=== PATIENT | female | born 1975 | race Caucasian/White ===

== ENCOUNTER 2019-03-19 15:48 | Inpatient (IN) | payer BC ==
--- OUTSIDE RECORDS SUMMARY | 2019-03-19 15:51 | XMS REPORT ---
:1975 [facility] Address [address] [place] [address] Dr. Painter [address] [place] [id number] Care Team Providers Name Role Phone Unavailable Unavailable Unavailable Problems This patient has no known problems. Allergies, Adverse Reactions, Alerts This patient has no known allergies or adverse reactions. Medications This patient has no known medications.
--- OUTSIDE RECORDS SUMMARY | 2019-03-19 15:52 | XMS REPORT ---
:1975 Author Organization eClinicalWorks Care Team Providers Name Role Phone Jmamie Avery Provider Role Unavailable Allergies No Known Allergies Problems Problem Type Condition Code Onset Dates Condition Status Problem Abnormal urine odor R82.90 Active Problem Abnormal urinalysis R82.90 Active Problem Hyperlipidemia, unspecified E78.5 Active hyperlipidemia type Problem Morbid obesity E66.01 Active Problem Migraine G43.909 Active Problem Neck pain on right side M54.2 Active Problem Depressive disorder F32.9 Active Problem Vitamin D deficiency E55.9 Active Problem Morbid (severe) obesity due to E66.01 Active excess calories Problem 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 Problem Right arm pain M79.601 Active Problem 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 31579322227 500-125 MG Jun 05, Jun 19, Active as directed Orally every 12 2017 2018 hrs Results No Known Results Summary Purpose eClinicalWorks Submission
--- OUTSIDE RECORDS SUMMARY | 2019-03-19 15:52 | XMS REPORT ---
:1975 Author Organization eClinicalWorks Care Team Providers Name Role Phone Jammie Avery Provider Role Unavailable Allergies No Known [...] pain of right shoulder M25.511 Active Medications No Known Medications Results No Known Results Summary Purpose eClinicalWorks Submission
--- OUTSIDE RECORDS SUMMARY | 2019-03-19 15:52 | XMS REPORT ---
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 Assessment Hypertension, unspecified type I10 Active Assessment Neck pain on right side M54.2 Active Assessment Acute pain of right shoulder M25.511 Active Assessment Right arm pain M79.601 Active Problem Body mass index (BMI) of 40.0-44.9 Z68.41 Active in adult Assessment Abnormal urinalysis R82.90 Active Problem Acute pain of right shoulder M25.511 Active Assessment Abnormal urine odor R82.90 Active Problem Abnormal urine odor R82.90 Active Problem Abnormal urinalysis R82.90 Active Problem Hyperlipidemia, unspecified E78.5 Active hyperlipidemia type Problem Morbid obesity E66.01 Active Problem Neck pain on right side M54.2 Active Problem Migraine G43.909 Active Problem Depressive disorder F32.9 Active Problem Vitamin D deficiency E55.9 Active Problem Morbid (severe) obesity due to E66.01 Active excess calories Problem 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 Problem Right arm pain M79.601 Active Problem 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 Assessment 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 Problem Hypertension I10 Active Assessment Vitamin D deficiency E55.9 Active Problem Hyperlipidemia E78.5 Active Problem Type 2 diabetes E11.9 Active Assessment 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 Problem Mixed hyperlipidemia E78.2 Active Problem Hypertension, unspecified type I10 Active Problem Chronic kidney disease, unspecified N18.9 Active CKD stage Problem 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 Problem 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 Medications Medication Code Code Instructions Start End Status Dosage System Date Date Calcium + D3 [facility] 72335274727 600-200 Active 1 tablet with MG-UNIT Orally a meal Once a day Lisinopril ND 39483664165 20 MG Orally Active 1 tablet Once a day Ferrous Sulfate [facility] 69015525767 325 (65 Fe) MG Active 1 tablet Orally Once daily Bystolic ND 10457511539 5 MG Orally Active 1 tablet Once a day Amlodipine ND 14691179181 10 MG Orally Active 1 tablet Besylate Once a day Promethazine HCl ND 27133990905 25 MG Orally Active 1 tablet as every 12 hrs needed Ciprofloxacin HCl ND 24790044368 250 MG Orally Active 1 tablet every 12 hrs NovoLog Flexpen [facility] 97983508381 100 UNIT/ML Active as directed Subcutaneous 35 units three times daily Vitamins [facility] 99379034525 28-0.8 MG Active 1 tablet in Orally Once evening daily Pravastatin Sodium ND 48782815342 20 MG Orally Active 1 tablet Once a day Contrave [facility] 25268198108 8-90 MG Orally Active 2 tablets Twice a day Fluconazole ND 89514740334 150 MG Orally Active 1 tablet x3 days Amitiza [facility] 84926134677 24 MCG Orally Active 1 capsule Twice a day with food Victoza [facility] 50521186536 18 MG/3ML Active not defined Subcutaneous Blood Glucose Test ND 0 as directed Jun 02, Active as directed Strip Test BS three 2017 (DISPENSE times daily BLOOD GLUCOSE TEST STRIPS FOR MOR CONTOUR BS MONITOR ) Lancets [facility] 49650558942 - as directed Jun 02, Active as directed Test BS three 2017 (dispense times daily lancets for mor contour bs monitor) BuPROPion HCl ER [facility] 18129972800 150 MG Orally Active 1 tablet in (Smoking Det) Once a day the morning Fish Oil ND 82203494425 1000 MG Orally Active 1 capsule Twice a day Aspirin EC ND 83541035220 81 MG Orally Active 1 tablet Once daily (otc) Levemir FlexTouch [facility] 43632689962 100 UNIT/ML Active as directed Subcutaneous 60 units twice daily Fenofibrate ND 94454363156 120 MG Orally Active 1 tablet with Once a day food Vitamin D3 [facility] 95686732978 50,000 PO once Active one tab a week Atorvastatin [facility] 25161537402 40 MG Orally Active 1 tablet Calcium Once a day Metformin HCl [facility] 53272338584 500 MG Orally Active 1 tablet with Twice a day meals Cyclobenzaprine [facility] 19011535882 10 MG Orally Jun 02Jun Active 1 tablet as HCl Twice daily 2017, needed for 2017 muscle cramps/pain [place] 3 [facility] 88335218671 1000 MG Orally Active 1 capsule Once a day Ketoconazole [facility] 32791541039 2 % Externally Active 1 application Once a day to affected area Metoprolol [facility] 02307785453 25 MG Orally Active 1 tablet Succinate ER Once a day Dicyclomine HCl [facility] 48282947808 20 MG Orally Active 1 tablet Four times a day as needed Results No Known Results Summary Purpose eClinicalWorks Submission
--- OUTSIDE RECORDS SUMMARY | 2019-03-19 15:53 | XMS REPORT ---
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 Problem Acute pain of right shoulder M25.511 Active Medications Medication Code Code Instructions Start End Status Dosage System Date Date BuPROPion HCl ER NDC 26134522801 150 MG Orally Active 1 tablet in (Smoking Det) Once a day the morning Fish Oil NDC 01677229864 1000 MG Orally Active 1 capsule Twice a day Promethazine HCl NDC 69525584351 25 MG Orally Active 1 tablet as every 12 hrs needed Amlodipine NDC 72195976530 10 MG Orally Active 1 tablet Besylate Once a day Lancets ND 15648332431 - as directed Jun 02, Active as directed Test BS three 2017 (dispense times daily lancets for karley contour bs monitor) Pravastatin [facility] 74982977278 20 MG Orally Active 1 tablet Sodium Once a day Metformin HCl ND 69585866203 500 MG Orally Active 1 tablet with Twice a day meals Atorvastatin [facility] 97819880014 40 MG Orally Active 1 tablet Calcium Once a day Dicyclomine HCl ND 87043304209 20 MG Orally Active 1 tablet Four times a day as needed Fenofibrate ND 85712284856 120 MG Orally Active 1 tablet with Once a day food NovoLog Flexpen [facility] 94121255721 100 UNIT/ML Active as directed Subcutaneous 35 units three times daily Blood Glucose ND 0 as directed Jun 02, Active as directed Test Strip Test BS three 2017 (DISPENSE times daily BLOOD GLUCOSE TEST STRIPS FOR KARLEY CONTOUR BS MONITOR ) Ketoconazole [facility] 77385430678 2 % Externally Active 1 application Once a day to affected area Metoprolol [facility] 89918533974 25 MG Orally Active 1 tablet Succinate ER Once a day Amitiza [facility] 84221298044 24 MCG Orally Active 1 capsule Twice a day with food Ciprofloxacin [facility] 48489637852 250 MG Orally Active 1 tablet HCl every 12 hrs Vitamin D3 [facility] 68572045146 50,000 PO once Active one tab a week Lisinopril [facility] 82507946809 20 MG Orally Active 1 tablet Once a day Victoza [facility] 03404748713 18 MG/3ML Active not defined Subcutaneous [place] 3 [facility] 35851168043 1000 MG Orally Active 1 capsule Once a day Fluconazole [facility] 72240257504 150 MG Orally Active 1 tablet x3 days Ferrous Sulfate [facility] 63887874884 325 (65 Fe) MG Active 1 tablet Orally Once daily Bystolic [facility] 82837712624 5 MG Orally Active 1 tablet Once a day Contrave [facility] 45590209314 8-90 MG Orally Active 2 tablets Twice a day Levemir ND 66180146918 100 UNIT/ML Active as directed FlexTouch Subcutaneous 60 units twice daily ND 28105714670 28-0.8 MG Active 1 tablet in Vitamins Orally Once evening daily Aspirin EC [facility] 64379196697 81 MG Orally Active 1 tablet Once daily (otc) Calcium + D3 [facility] 58343163771 600-200 MG-UNIT Active 1 tablet with Orally Once a a meal day Results Name Result Date Reference Range Unit Abnormality Flag FLU TEST ----A Negative [id number] ----B Negative [id number] STREP A RAPID ----Result Negative [id number] Summary Purpose eClinicalWorks Submission
--- OUTSIDE RECORDS SUMMARY | 2019-03-19 15:53 | XMS REPORT ---
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 70678281627 28-0.8 MG Active 1 tablet in Vitamins Orally Once evening daily Ferrous Sulfate [facility] 51122953370 325 (65 Fe) MG Active 1 tablet Orally Once daily Ciprofloxacin [facility] 12459238971 250 MG Orally Active 1 tablet HCl every 12 hrs BuPROPion HCl ER [facility] 62051938955 150 MG Orally Active 1 tablet in (Smoking Det) Once a day the morning Lisinopril [facility] 86769551100 20 MG Orally Active 1 tablet Once a day Metformin HCl ND 45657113675 500 MG Orally Active 1 tablet with Twice a day meals Fluconazole ND 42066098750 150 MG Orally Active 1 tablet x3 days Bystolic ND 62738431560 10 MG Orally Active 1 tablet Once a day Amitiza ND 74588970687 24 MCG Orally Active 1 capsule Twice a day with food Calcium + D3 [facility] 32459712159 600-200 MG-UNIT Active 1 tablet with Orally Once a a meal day Diflucan ND 69730998944 150 MG Orally 1 Oct 06Sep Active as directed tablet now; 2017, then repeat 2018 after completing abx. Augmentin [facility] 06976051178 875-125 MG Oct 06Oct Active 1 tablet Orally every 12 2017 07, hrs 2019 Pravastatin ND 18990297169 20 MG Orally Active 1 tablet Sodium Once a day Vitamin D3 ND 65967570739 50,000 PO once Active one tab a week [place] 3 ND 48921039564 1000 MG Orally Active 1 capsule Once a day Levemir ND 27262025587 100 UNIT/ML Active as directed FlexTouch Subcutaneous 60 units twice daily NovoLog Flexpen ND 54870751659 100 UNIT/ML Active as directed Subcutaneous 35 units three times daily Dicyclomine HCl ND 58826952371 20 MG Orally Active 1 tablet Four times a day as needed Amlodipine ND 35252177486 10 MG Orally Active 1 tablet Besylate Once a day Contrave ND 16595377257 8-90 MG Orally Active 2 tablets Twice a day Atorvastatin ND 36830856956 40 MG Orally Active 1 tablet Calcium Once a day Fenofibrate ND 79225655717 120 MG Orally Active 1 tablet with Once a day food Fish Oil ND 08572823093 1000 MG Orally Active 1 capsule Twice a day NovoFine [facility] 49354520830 32G X 6 MM Active USE FIVE TIMES A DAY Victoza ND 82027009334 18 MG/3ML Active not defined Subcutaneous Blood Glucose ND 0 as directed Jun 02, Active as directed Test Strip Test BS three 2017 (DISPENSE times daily BLOOD GLUCOSE TEST STRIPS FOR KARLEY CONTOUR BS MONITOR ) Promethazine HCl [facility] 83634624544 25 MG Orally Active 1 tablet as every 12 hrs needed Ketoconazole [facility] 45881531963 2 % Externally Active 1 application Once a day to affected area Aspirin EC [facility] 60535501639 81 MG Orally Active 1 tablet Once daily (otc) Lancets [facility] 86482018600 - as directed Jun 02, Active as directed Test BS three 2017 (dispense times daily lancets for karley contour bs monitor) Metoprolol [facility] 30607415181 25 MG Orally Active 1 tablet Succinate ER Once a day Results Name Result Date Reference Range Unit Abnormality Flag FLU TEST ----A Negative [id number] ----B Negative [id number] STREP A RAPID ----Result Poaitive [id number] Summary Purpose eClinicalWorks Submission
--- OUTSIDE RECORDS SUMMARY | 2019-03-19 15:53 | XMS REPORT ---
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 Assessment Abdominal pain, unspecified R10.9 Active abdominal location Assessment Screening mammogram, encounter for Z12.31 Active Assessment Fatigue, unspecified type R53.83 Active Assessment Strep throat J02.0 Active Assessment Acute pharyngitis, unspecified J02.9 Active etiology Problem 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 Problem Hypertension I10 Active Problem Abnormal urine odor R82.90 Active Problem Hyperlipidemia, unspecified E78.5 Active hyperlipidemia type Problem Hyperlipidemia E78.5 Active Problem Hypertension, unspecified type I10 Active Problem Body mass index (BMI) of 40.0-44.9 Z68.41 Active in adult Problem Chronic kidney disease, unspecified N18.9 Active CKD stage Problem Fatigue, unspecified type R53.83 Active Problem Depression, unspecified depression F32.9 Active type Problem Migraine G43.909 Active Problem Depressive disorder F32.9 Active Assessment 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 Problem Body mass index (BMI) 45.0-49.9, Z68.42 Active adult Problem Mixed hyperlipidemia E78.2 Active Assessment Depression, unspecified depression F32.9 Active type Problem Abnormal urinalysis R82.90 Active Problem Acute pain of right shoulder M25.511 Active Problem Abdominal pain, unspecified R10.9 Active abdominal location Problem 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 Assessment Hyperlipidemia, unspecified E78.5 Active hyperlipidemia type Problem 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 Assessment Chronic kidney disease, unspecified N18.9 Active CKD stage Problem Right arm pain M79.601 Active Assessment Body mass index (BMI) 45.0-49.9, Z68.42 Active adult Problem Type 2 diabetes E11.9 Active Assessment Morbid obesity E66.01 Active Problem Morbid (severe) obesity due to E66.01 Active excess calories Assessment 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 Problem Vitamin D deficiency E55.9 Active Assessment Vitamin D deficiency E55.9 Active Problem 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 Problem Neck pain on right side M54.2 Active Problem Morbid obesity E66.01 Active Medications Medication Code Code Instructions Start End Status Dosage System Date Date [place] 3 [facility] 80718602836 1000 MG Orally Active 1 capsule Once a day Dicyclomine HCl ND 26151917783 20 MG Orally Active 1 tablet Four times a day as needed Metoprolol ND 96902841877 25 MG Orally Active 1 tablet Succinate ER Once a day Vitamin D3 ND 26142877330 50,000 PO once Active one tab a week Bystolic ND 01272976028 10 MG Orally Active 1 tablet Once a day NovoLog Flexpen ND 95334171720 100 UNIT/ML Active as directed Subcutaneous 35 units three times daily Augmentin [facility] 64259675842 875-125 MG February 09February Active 1 tablet Orally every 12 2018 13, hrs 2019 Amlodipine ND 54839424447 10 MG Orally Active 1 tablet Besylate Once a day Metformin HCl ND 01881445089 500 MG Orally Active 1 tablet with Twice a day meals Fish Oil ND 50624111996 1000 MG Orally Active 1 capsule Twice a day Atorvastatin ND 23940451267 40 MG Orally Active 1 tablet Calcium Once a day BuPROPion HCl ER ND 67061719624 150 MG Orally Active 1 tablet in (Smoking Det) Once a day the morning Promethazine HCl ND 19291154736 25 mg Orally February 09February Active 1 tablet as every 4-6 hours 2018 13, needed as needed for 2019 nausea/vomiting ; also, dose 15-20 minutes prior to abx. NovoFine ND 80608562372 32G X 6 MM Active as directed subcutaneous Use as directed with Levemir FlexTouch & Novolog FlexPen five times daily Calcium + D3 ND 94844356127 600-200 MG-UNIT Active 1 tablet with Orally Once a a meal day Fluconazole ND 47729042712 150 MG Orally Active 1 tablet x3 days Contrave ND 85136400676 8-90 MG Orally Active 2 tablets Twice a day Lisinopril [facility] 53572522226 20 MG Orally Active 1 tablet Once a day [facility] 98908172815 28-0.8 MG Active 1 tablet in Vitamins Orally Once evening daily Ferrous Sulfate [facility] 85928213785 325 (65 Fe) MG Active 1 tablet Orally Once daily Pravastatin [facility] 86051713405 20 MG Orally Active 1 tablet Sodium Once a day Ketoconazole [facility] 51421008477 2 % Externally Active 1 application Once a day to affected area Blood Glucose ND 0 as directed Jun 02, Active as directed Test Strip Test BS three 2017 (DISPENSE times daily BLOOD GLUCOSE TEST STRIPS FOR MOR CONTOUR BS MONITOR ) Victoza [facility] 40271804910 18 MG/3ML Active not defined Subcutaneous Aspirin EC ND 10502846816 81 MG Orally Active 1 tablet Once daily (otc) Ciprofloxacin [facility] 03991478620 250 MG Orally Active 1 tablet HCl every 12 hrs Lancets [facility] 65597439247 - as directed Jun 02, Active as directed Test BS three 2017 (dispense times daily lancets for mor contour bs monitor) Fenofibrate [facility] 47763878625 120 MG Orally Active 1 tablet with Once a day food Promethazine HCl [facility] 56629909978 25 MG Orally Active 1 tablet as every 12 hrs needed Amitiza [facility] 44059875492 24 MCG Orally Active 1 capsule Twice a day with food Levemir [facility] 85005990563 100 UNIT/ML Active as directed FlexTouch Subcutaneous 60 units twice daily Results Name Result Date Reference Range Unit Abnormality Flag STREP A RAPID ----Result Positive [id number] Summary Purpose eClinicalWorks Submission
--- OUTSIDE RECORDS SUMMARY | 2019-03-19 15:53 | XMS REPORT ---
:1975 Author Organization eClinicalWorks Care Team Providers Name Role Phone Bennie Jammie Provider Role Unavailable Allergies No Known Allergies [...]
[2019-03-19 17:32] LABS: Absolute Lymphocytes (CBC) 2.5 K/uL (0.7-4.9); Absolute Monocytes 0.8 K/uL (0.1-1.3); Absolute Neutrophil 7.7 K/uL (1.8-8.0); Basophils % 0.9 % (0-1.3); Eosinophils % 2.9 % (0-4.4); Lymphocytes % 21.9 % (15.3-44.8); MPV 9.2 fL (7.6-11.3); Monocytes % 6.9 % (3.3-12.3); RBC Red Blood Cell Count 4.25 M/uL (3.86-4.86)
[2019-03-19] MEDS ORDERED: ACETAMINOPHEN 325 MG TABLET ONE (17:42)
[2019-03-19] MEDS ORDERED: ONDANSETRON 4 MG/2 ML VIAL ONE (17:42)
[2019-03-19 17:53] LABS: ALT/SGPT 15 U/L (12-78); AST/SGOT 12 U/L (15-37); Albumin 2.5 g/dL (3.4-5.0); Alkaline Phosphatase 93 U/L (45-117); BUN Blood Urea Nitrogen 30 mg/dL (7-18); Bicarbonate 21 mmol/L (21-32); Bilirubin Direct < 0.1 mg/dL (0-0.2); Bilirubin Total 0.2 mg/dL (0.2-1.0); Glucose Level 103 mg/dL (74-106); Lipase 86 U/L (73-393); Potassium 4.6 mmol/L (3.5-5.1); Protein, Total 6.7 g/dL (6.4-8.2); Sodium Level 139 mmol/L (136-145)
[2019-03-19] MEDS ORDERED: FENTANYL CITR 100 MCG/2 ML ONE (18:15)
[2019-03-19 18:28] LABS: Urine Blood 2+ (NEG); Urine Glucose NEGATIVE (NEG); Urine Specific Gravity 1.015 (1.005-1.030); Urine pH 5.5 (5.0-7.0)
[2019-03-19 18:29] LABS: Urine Protein 3+ (NEG)
--- NOTE | 2019-03-19 18:40 | ER ---
Nurse's Notes [facility] Name: Keiry Umaña Age: 43 yrs Sex: Female : 1975 Arrival Date: 03/19/2019 Time: 15:53 Bed 19 Private MD: Diagnosis: Abdominal tenderness;Unspecified kidney failure-insufficency;Type 1 diabetes mellitus;Urinary tract infection, site not specified Presentation: 03/19 15:55 Presenting complaint: Patient states: Back pain that started today with "foamy urine". aj Transition of care: patient was not received from another setting of care. Onset of symptoms was March 19, 2019. Care prior to arrival: None. 15:55 Method Of Arrival: Ambulatory aj 15:55 Acuity: CHERYL 3 aj 17:00 Risk Assessment: Do you want to hurt yourself or someone else? Patient reports no sv desire to harm self or others. Initial Sepsis Screen: Does the patient meet any 2 criteria? No. Patient's initial sepsis screen is negative. Does the patient have a suspected source of infection? No. Patient's initial sepsis screen is negative. Triage Assessment: 15:56 General: Appears in no apparent distress. uncomfortable, obese, Behavior is calm, aj cooperative, appropriate for age. Pain: Complains of pain in left subscapular area and right subscapular area. Neuro: Level of Consciousness is awake, alert, obeys commands, Oriented to person, place, time, situation, Appropriate for age. Respiratory: Airway is patent Respiratory effort is even, unlabored. : Reports pain. Derm: Skin is intact, is healthy with good turgor, Skin is pink, warm \\T\\ dry. normal. Musculoskeletal: Range of motion: intact in all extremities. [employer]ING [employer]ER: 15:56 LMP 03/14/2019 aj Historical: - Allergies: 15:56 Morphine; aj 15:56 KETAMINE; aj - PMHx: 15:56 bilateral foot amputee; Diabetes - IDDM; High Cholesterol; Hypertension; aj - PSHx: 15:56 Appendectomy; Cholecystectomy; B/L BKA; aj - Immunization history:: Adult Immunizations up to date. - Ebola Screening: : No symptoms or risks identified at this time. - Social history:: Smoking status: Patient/guardian denies using tobacco, never smoked. Screenin:00 Abuse screen: Denies threats or abuse. Denies injuries from another. Nutritional sv screening: No deficits noted. Tuberculosis screening: No symptoms or risk factors identified. Fall Risk None identified. Assessment: 16:19 General: Appears distressed, uncomfortable, obese, Behavior is cooperative, anxious, ae4 restless. Pain: Complains of pain in left mid back Pain currently is 10 out of 10 on a pain scale. Neuro: Level of Consciousness is awake, alert, obeys commands, Oriented to person, place, time, situation. Cardiovascular: Reports nausea, shortness of breath, Rhythm is regular. Respiratory: Airway is patent Respiratory effort is even, unlabored, shallow, Respiratory pattern is regular, symmetrical. GI: Abdomen is round obese, Reports lower abdominal pain, upper abdominal pain, diarrhea, bloody stool, nausea. : Reports burning with urination, "foamy urine" and "foul odor". EENT: No signs and/or symptoms were reported regarding the EENT system. Derm: Skin is diaphoretic, Skin is pale. Musculoskeletal: Reports Generalized weakness and "fatigue". 17:00 Reassessment: Patient appears in no apparent distress at this time. No changes from sv previously documented assessment. Patient and/or family updated on plan of care and expected duration. Pain level reassessed. Patient is alert, oriented x 3, equal unlabored respirations, skin warm/dry/pink. 18:00 Reassessment: Patient appears in no apparent distress at this time. No changes from sv previously documented assessment. Patient and/or family updated on plan of care and expected duration. Pain level reassessed. Patient is alert, oriented x 3, equal unlabored respirations, skin warm/dry/pink. 18:20 Reassessment: Dr Rodriguez at the bedside. sv 18:30 Reassessment: Patient appears in no apparent distress at this time. No changes from sv previously documented assessment. Patient and/or family updated on plan of care and expected duration. Pain level reassessed. Patient is alert, oriented x 3, equal unlabored respirations, skin warm/dry/pink. 19:15 Reassessment: Patient appears in no apparent distress at this time. Patient and/or cc3 family updated on plan of care and expected duration. Pain level reassessed. Patient is alert, oriented x 3, equal unlabored respirations, skin warm/dry/pink. Received this female patient from morning shift CHERI Mayberry as a case of back pain. Patient came back from CT scan department, still for IV cannulation as endorsed. 20:17 Reassessment: Patient appears in no apparent distress at this time. Patient and/or cc3 family updated on plan of care and expected duration. Pain level reassessed. Patient is alert, oriented x 3, equal unlabored respirations, skin warm/dry/pink. Dr. Kingston at bedside, patient complains of left upper abdominal pain Dr. Kingston informed and he said he will still see what pain medicine he'll order once the patient's admitted. 21:07 Reassessment: Patient appears in no apparent distress at this time. Patient and/or cc3 family updated on plan of care and expected duration. Pain level reassessed. Patient is alert, oriented x 3, equal unlabored respirations, skin warm/dry/pink. Room available in 419, called for report but was told that the nurse who will receive will just call me back. 21:30 Reassessment: CHERI Kang called and report handed over to her for continuity cc3 of care and management. 22:05 Reassessment: Patient appears in no apparent distress at this time. Patient and/or cc3 family updated on plan of care and expected duration. Pain level reassessed. Patient is alert, oriented x 3, equal unlabored respirations, skin warm/dry/pink. Patient left ER for admission vitally stable by stretcher escorted by [facility]. Patient states symptoms have improved. Vital Signs: 15:56 BP 153 / 72; Pulse 70; Resp 17; Temp 97.9; Pulse Ox 100% on R/A; Weight 131.54 kg; aj Height 5 ft. 7 in. (170.18 cm); 17:48 BP 140 / 62; Pulse 67; Resp 18; Pulse Ox 100% ; sv 18:30 Pain 4/10; sv 19:40 BP 120 / 69; Pulse 72; Resp 17 S; Temp 98(O); Pulse Ox 100% on R/A; cc3 20:00 BP 140 / 67; Pulse 67; Resp 17 S; Temp 98(O); Pulse Ox 100% on R/A; cc3 21:08 BP 101 / 58; Pulse 65; Resp 16 S; Temp 98(O); Pulse Ox 98% on R/A; cc3 21:50 BP 112 / 63; Pulse 68; Resp 18 S; Temp 98(O); Pulse Ox 100% on R/A; cc3 15:56 Body Mass Index 45.42 (131.54 kg, 170.18 cm) aj ED Course: 15:53 Patient arrived in ED. tw3 15:55 Triage completed. aj 15:56 Arm band placed on left wrist. Patient placed in waiting room, Patient notified of wait aj time. 16:18 Urine collected: clean catch specimen, cloudy, jarrod colored. jb1 16:21 Gigi Clark PA is PHCP. jmm 16:21 Joe Vyas MD is Attending Physician. jm 16:37 Shawanda Zimmer, CHERI is Primary Nurse. sv 17:00 Patient has correct armband on for positive identification. Placed in gown. Bed in low sv position. Call light in reach. monitoring coordinator on. Pulse ox on. NIBP on. Door closed. Head of bed elevated. 17:00 Inserted saline lock: 22 gauge in left antecubital area, using aseptic technique. Blood sv collected. Accessed ,peripheral vein via ultrasound, utilizing static ultrasound technique using ,sterile technique, per hospital protocol. Clean \\T\\ dry. Dressing intact. Missed attempt(s): 20 gauge in right antecubital area. Bleeding controlled, band aid applied, catheter tip intact. Flushed left antecubital with 5 ml normal saline. 17:29 Chest Single View XRAY In Process Unspecified. EDMS 18:37 Ness Mata MD is Hospitalizing Provider. sonali 18:49 IV discontinued, intact, Pressure dressing applied, IV infiltrated. sv 19:00 Report given to Leslie ALONZO. sv 19:01 Abdomen In Process Unspecified. EDMS 19:33 Primary Nurse role handed off by Shawanda Zimmer RN sv 19:43 Inserted saline lock: 20 gauge in right antecubital area, using aseptic technique. oe 19:50 Leslie Warner is Primary Nurse. cc3 21:30 No provider procedures requiring assistance completed. Patient admitted, IV remains in cc3 place. Administered Medications: 17:30 Drug: Zofran 4 mg Route: IVP; Site: left antecubital; sv 18:30 Follow up: Response: No adverse reaction; No change in condition sv 18:04 Drug: fentaNYL (PF) 25 mcg Route: IVP; Site: left antecubital; sv 18:30 Follow up: Pain 4/10 Adult; Response: No adverse reaction; Pain is decreased sv 19:55 Drug: Rocephin - (cefTRIAXone) 1 grams Route: IVPB; Infused Over: 30 mins; Site: right cc3 antecubital; 20:05 Follow up: Response: No adverse reaction; IV Status: Completed infusion; IV Intake: [id number] 20:00 Drug: Phenergan 6.25 mg Route: IVP; Site: right antecubital; cc3 20:30 Follow up: Response: No adverse reaction; Nausea is decreased cc3 Intake: 17:30 PO: 500ml (Contrast); Total: 500ml. sv 20:05 IV: 10ml; Total: 510ml. cc3 17:[address] sv Outcome: 18:39 Decision to Hospitalize by Provider. [facility] 21:30 Admitted to Tele accompanied by tech, via stretcher, room 419, with chart, Report cc3 called to CHERI Kang 21:30 Condition: stable 21:30 Instructed on the need for admit, Demonstrated understanding of instructions. 22:05 Patient left the ED. cc3 Signatures: Dispatcher [employer] EDMS Abhilash Oneil Stephanie, RN RN sv Myers, Amanda, RN RN aj Anderson, Corey, MD MD cha Mickail, Joel, PA PA jmm Espinosa, Orlando oe Wade, Tia 3 Leslie Warner cc3 Ken Crawford RN RN ae4 Corrections: (The following items were deleted from the chart) 18:04 15:56 Allergies: Pain medication- must have phenergan for nausea with pain medicine; [facility] 18:04 15:56 Allergies: Zofran; [facility] 22:22 20:17 Reassessment: Patient appears in no apparent distress at this time. Patient cc3 and/or family updated on plan of care and expected duration. Pain level reassessed. Patient is alert, oriented x 3, equal unlabored respirations, skin warm/dry/pink. Dr. Kingston at bedside, patient complains of left upper abdominal pain Dr. Kingston informed and he said he will still see what pain medicine he'll order. cc3
--- NOTE | 2019-03-19 18:41 | EDPHYS ---
Physician Documentation [facility] Name: Keiry Umaña Age: 43 yrs Sex: Female : 1975 Arrival Date: 03/19/2019 Time: 15:53 Bed 19 Private MD: ED Physician Joe Vyas HPI: 03/19 16:27 This 43 yrs old Female presents to ER via Ambulatory with complaints of Back jmm Pain. 16:27 The patient presents with abdominal pain. Onset: The symptoms/episode began/occurred jmm gradually, 3 month(s) ago. The symptoms radiate to left back. This is a 43 year old female with a history of DM that presents to the ED with complaints of chronic epigastric abdominal pain with diarrhea beginning in late December of this year. Patient states having multiple episodes of diarrhea. Patient was sent from Dr. Kendall's office. . 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 - Ebola Screening: : No symptoms or risks identified at this time. - Social history:: Smoking status: Patient/guardian denies using tobacco, never smoked. ROS: 16:27 Constitutional: Negative for fever, chills, and weight loss, Eyes: Negative for injury, jmm pain, redness, and discharge, ENT: Negative for injury, pain, and discharge, Neck: Negative for injury, pain, and swelling, Cardiovascular: Negative for chest pain, palpitations, and edema. 16:27 Back: Negative for injury and pain, MS/Extremity: Negative for injury and deformity, Skin: Negative for injury, rash, and discoloration, Neuro: Negative for headache, weakness, numbness, tingling, and seizure, Psych: Negative for depression, anxiety, suicide ideation, homicidal ideation, and hallucinations. 16:27 Abdomen/GI: Positive for abdominal pain, diarrhea. 16:27 All other systems are negative. Exam: 17:57 Head/Face: atraumatic. Eyes: EOMI, no conjunctival erythema appreciated ENT: Moist jmm Mucus Membranes Neck: Trachea midline, Supple Chest/axilla: Normal chest wall appearance and motion. Cardiovascular: Regular rate and rhythm. No edema appreciated Respiratory: Normal respirations, no respiratory distress appreciated 17:57 Constitutional: The patient appears alert, awake, uncomfortable. 17:57 Abdomen/GI: Inspection: obese Bowel sounds: normal, Palpation: soft, moderate abdominal tenderness, in the epigastric area and left upper quadrant. 17:57 Back: ROM is normal. 17:57 Musculoskeletal/extremity: ROM: intact in all extremities. 17:57 Skin: Appearance: Color: normal in color. 17:57 Neuro: Orientation: is normal, Mentation: is normal, Memory: is normal. 17:57 Psych: Behavior/mood is pleasant, cooperative. Vital Signs: 15:56 BP 153 / 72; Pulse 70; Resp 17; Temp 97.9; Pulse Ox 100% on R/A; Weight 131.54 kg; aj Height 5 ft. 7 in. (170.18 cm); 17:48 BP 140 / 62; Pulse 67; Resp 18; Pulse Ox 100% ; sv 18:30 Pain 4/10; sv 19:40 BP 120 / 69; Pulse 72; Resp 17 S; Temp 98(O); Pulse Ox 100% on R/A; cc3 20:00 BP 140 / 67; Pulse 67; Resp 17 S; Temp 98(O); Pulse Ox 100% on R/A; cc3 21:08 BP 101 / 58; Pulse 65; Resp 16 S; Temp 98(O); Pulse Ox 98% on R/A; cc3 21:50 BP 112 / 63; Pulse 68; Resp 18 S; Temp 98(O); Pulse Ox 100% on R/A; cc3 15:56 Body Mass Index 45.42 (131.54 kg, 170.18 cm) aj MDM: 16:27 Patient medically screened. [facility] 18:10 Data reviewed: vital signs, nurses notes. [facility] 18:22 Transition of care: After a detail discussion of the patient's case, care is [facility] transferred to Joe Vyas MD. 03/19 16:27 Order name: Basic Metabolic Panel; Complete Time: 18:02 [facility] 03/19 16:27 Order name: CBC with Diff; Complete Time: 17:41 [facility] 03/19 16:27 Order name: Creatinine for Radiology; Complete Time: 18:02 [facility] 03/19 16:27 Order name: Hepatic Function; Complete Time: 18:02 [facility] 03/19 16:27 Order name: Lipase; Complete Time: 18:02 [facility] 03/19 17:16 Order name: Urine Dipstick--Ancillary (enter results); Complete Time: 18:37 03/19 17:08 Order name: Chest Single View XRAY; Complete Time: 06:06 [facility] 03/19 17:16 Order name: Urine --Ancillary (enter results); Complete Time: 18:37 bd 03/19 17:49 Order name: D-Dimer; Complete Time: 18:37 [facility] 03/19 18:33 Order name: Urine Microscopic Only; Complete Time: 06:06 sv 03/19 18:36 Order name: Urine Culture [facility] 03/19 16:22 Order name: Urine Dipstick-Ancillary (obtain specimen); Complete Time: 17:19 [facility] 03/19 16:27 Order name: IV Saline Lock; Complete Time: 17:19 [facility] 03/19 16:27 Order name: Labs collected and sent; Complete Time: 17:19 [facility] 03/19 17:08 Order name: Urine Test (obtain specimen); Complete Time: 17:19 [facility] 03/19 18:49 Order name: Abdomen ; Complete Time: 06:06 EDMS Administered Medications: 17:30 Drug: Zofran 4 mg Route: IVP; Site: left antecubital; sv 18:30 Follow up: Response: No adverse reaction; No change in condition sv 18:04 Drug: fentaNYL (PF) 25 mcg Route: IVP; Site: left antecubital; sv 18:30 Follow up: Pain 4/10 Adult; Response: No adverse reaction; Pain is decreased sv 19:55 Drug: Rocephin - (cefTRIAXone) 1 grams Route: IVPB; Infused Over: 30 mins; Site: right cc3 antecubital; 20:05 Follow up: Response: No adverse reaction; IV Status: Completed infusion; IV Intake: [id number] 20:00 Drug: Phenergan 6.25 mg Route: IVP; Site: right antecubital; cc3 20:30 Follow up: Response: No adverse reaction; Nausea is decreased cc3 Disposition: 18:39 Co-signature as Attending Physician, Joe Asael MD I agree with the assessment and [facility] plan of care. Disposition: 03/19/19 18:39 Hospitalization ordered by Ness Mata for Inpatient Admission. Preliminary diagnosis are Abdominal tenderness, Unspecified kidney failure - insufficency, Type 1 diabetes mellitus, Urinary tract infection, site not specified. - Bed requested for Telemetry/MedSurg (Inpatient). - Status is Inpatient Admission. cc3 - Condition is Fair. - Problem is new. - Symptoms have improved. UTI on Admission? Yes Signatures: Dispatcher [employer] EDMS Shawanda Zimmer RN RN sv Myers, Amanda RN Joe Miranda MD MD cha Mickail, Joel, PA PA jmm Chretien, Felicia, RN RN fc Cordel, Charlene cc3 Corrections: (The following items were deleted from the chart) 16:42 16:31 Abdomen Pelvis W Con+CT.RAD.BRZ ordered. EDTX EDTX 17:29 16:57 Extrem Venous W Compression Philipp+US.RAD.BRZ ordered. [facility] EDTX 18:04 15:56 Allergies: Pain medication- must have phenergan for nausea with pain medicine; [facility] 18:04 15:56 Allergies: Zofran; [facility] 18:47 16:42 Abdomen ordered. [facility] EDTX 20:42 18:39 Hospitalization Ordered by Ness Mata MD for Inpatient Admission. Preliminary fc diagnosis is Abdominal tenderness; Unspecified kidney failure - insufficency; Type 1 diabetes mellitus; Urinary tract infection, site not specified. Bed requested for Telemetry/MedSurg (Inpatient). Status is Inpatient Admission. Condition is Fair. Problem is new. Symptoms have improved. UTI on Admission? Yes. [facility] 22:05 20:42 03/19/2019 18:39 Hospitalization Ordered by Ness Mata MD for Inpatient cc3 Admission. Preliminary diagnosis is Abdominal tenderness; Unspecified kidney failure - insufficency; Type 1 diabetes mellitus; Urinary tract infection, site not specified. Bed requested for Telemetry/MedSurg (Inpatient). Status is Inpatient Admission. Condition is Fair. Problem is new. Symptoms have improved. UTI on Admission? Yes. fc
[2019-03-19] MEDS ORDERED: PROMETHAZINE 25 MG/ML VIAL ONE ×2 (18:51→20:09)
[2019-03-19] MEDS ORDERED: CEFTRIAXONE/SWI 1gm 1 GM/10 ML SYR ONE (18:59)
--- NOTE | 2019-03-19 19:25 | RAD REPORT ---
EXAM DESCRIPTION: CT - Abdomen Pelvis Wo Contrast - 03/19/2019 7:00 pm CLINICAL HISTORY: Abdominal pain COMPARISON: 2016 TECHNIQUE: Computed axial tomography of the abdomen and pelvis was obtained. IV was not requested. O ral contrast was given. Coronal reconstructions performed. All CT scans are performed using dose optimization technique as appropriate and may include automated exposure control or mA/KV adjustment according to patient size. FINDINGS: The evaluation of solid organs and vessels is limited secondary to the lack of contrast a dministration. The liver, spleen, pancreas, adrenals and kidneys appear grossly normal. Cholecystectomy. There is no evidence of diverticulitis. IMPRESSION: No acute abnormality is displayed.
--- NOTE | 2019-03-19 19:26 | RAD REPORT ---
EXAM DESCRIPTION: Mona Single View03/19/2019 5:27 pm CLINICAL HISTORY: sob COMPARISON: November 2017 FINDINGS: The lungs appear clear of acute infiltrate. The heart is normal size IMPRESSION: No acute abnormalities displayed
[2019-03-19 19:55] LABS: Urine Bacteria LOADED /HPF (<20); Urine Culture Reflex Order NOT NEEDED
--- NOTE | 2019-03-19 20:28 | P.HP ---
Certification for Inpatient Patient admitted to: Observation With expected LOS: <2 Midnights Practitioner: I am a practitioner with admitting privileges, knowledge of patient current condition, hospital course, and medical plan of care. Services: Services provided to patient in accordance with Admission requirements found in Title 42 Section 412.3 of the Code of Federal Regulations Patient History Date of Service: 03/19/19 Reason for admission: UTI, abdominal pain History of Present Illness: Ms Umaña is a 43 years old woman with history of DM I, Hyperlipidemia, HTN, bilateral BKA, CKD, who states that has had abdominal pain since December of this year. Pain is located in epigastric area. She said that her pain was worse lately, going to her left flank. She denied fever or chills, but has had some nausea and diarrhea. She was recently admitted due to pneumonia. Today she went to see Dr Suazo, who after evaluate her symptoms, referred her to ED for further evaluation. Lab work remarkable for mild leukocytosis, abnormal UA consistent with UTI. CT abdomen and pelvis unremarkable. Allergies morphine Allergy (Intermediate, Verified 11/28/17 00:51) Anaphylaxis Home medications list reviewed: Yes Home Medications: Insulin Aspart [Novolog Flexpen] 35 unit SQ AC 02/04/16 Insulin Detemir [Levemir Flextouch] 60 unit SQ BID 6AM 6PM 02/04/16 Nebivolol HCl [Bystolic*] 5 mg PO DAILY 11/28/17 Tramadol HCl [Ultram] 50 mg PO Q6HR #15 tablet 11/30/17 Amoxicillin/Potassium Clav [Augmentin 875-125 Tablet] 1 each PO BID #60 tablet 12/02/17 Cyanocobalamin [Vitamin B-12*] 1,000 mcg SL DAILY #30 tab 12/02/17 Ferrous Sulfate 325 mg PO DAILY #30 tablet 12/02/17 Vitamin [ VITAMIN*] 1 tab PO DAILY #30 tab 12/02/17 - Past Medical/Surgical History Diabetic: Yes -: Hypertension -: Hyperlipidemia -: IDDM -: Depression -: Appendectomy -: Cholecystectomy -: Bilateral BKAs - Family History Father -: Hypertension, Cancer Brother -: Lung disease, Cancer Mother -: Heart disease, Diabetes, Stroke - Social History Smoking Status: Never smoker Alcohol use: No CD- Drugs: No Caffeine use: Yes Place of Residence: Home Review of Systems 10-point ROS is otherwise unremarkable Physical Examination - Physical Exam General: Alert, In no apparent distress HEENT: Atraumatic, PERRLA, Mucous membr. moist/pink, EOMI, Sclerae nonicteric Neck: Supple, 2+ carotid pulse no bruit, No LAD, Without JVD or thyroid abnormality Respiratory: Clear to auscultation bilaterally, Normal air movement Cardiovascular: Regular rate/rhythm, Normal S1 S2 Gastrointestinal: Normal bowel sounds, Tenderness (tender to palption epigastric area) Musculoskeletal: No tenderness Integumentary: No rashes Neurological: Normal speech, Normal strength at 5/5 x4 extr, Normal tone, Normal affect Lymphatics: No axilla or inguinal lymphadenopathy - Studies Laboratory Data (last 24 hrs) 03/19/19 17:00: Creatinine 1.74 H 03/19/19 17:00: WBC 11.4 H, Hgb 12.0, Hct 36.0, Plt Count 302 03/19/19 17:00: Sodium 139, Potassium 4.6, BUN 30 H, Creatinine 1.71 H, Glucose 103, Total Bilirubin 0.2, AST 12 L, ALT 15, Alkaline Phosphatase 93, Lipase 86 Assessment and Plan - Problems (Diagnosis) (1) UTI (urinary tract infection) Current Visit: Yes Status: Acute Qualifiers: Urinary tract infection type: acute cystitis Hematuria presence: without hematuria Qualified Code(s): N30.00 - Acute cystitis without hematuria (2) Diabetes mellitus Current Visit: Yes Status: Acute Qualifiers: Diabetes mellitus type: type 1 Diabetes mellitus complication status: with kidney complications Diabetes mellitus complication detail: with chronic kidney disease Chronic kidney disease stage: stage 3 (moderate) Qualified Code(s): E10.22 - Type 1 diabetes mellitus with diabetic chronic kidney disease ; N18.3 - Chronic kidney disease, stage 3 (moderate) (3) HTN (hypertension) Current Visit: Yes Status: Acute Qualifiers: Hypertension type: essential hypertension Qualified Code(s): I10 - Essential (primary) hypertension (4) CKD (chronic kidney disease) Current Visit: Yes Status: Acute Qualifiers: Chronic kidney disease stage: stage 3 (moderate) Qualified Code(s): N18.3 - Chronic kidney disease, stage 3 (moderate) (5) Hyperlipidemia Current Visit: No Status: Acute Qualifiers: Hyperlipidemia type: mixed hyperlipidemia Qualified Code(s): E78.2 - Mixed hyperlipidemia (6) Morbid obesity Current Visit: No Status: Acute - Plan The patient will be admitted to the hospital due to UTI. Will order IV Rocephin , urine culture in process. Will order C.Diff screening as well. Dr Suazo will see the patient in AM. - Advance Directives Does patient have a Living Will: No Does patient have a Durable POA for Healthcare: No - Code Status/Comfort Care Code Status Assessed: Yes Code Status: Full Code
[2019-03-19] MEDS ORDERED: prednisoLONE 15 MG/5 ML OSYR ONE (22:08)
[2019-03-19] MEDS ORDERED: ACETAMINOPHEN 500 MG TAB PO PRN (22:13)
[2019-03-19] MEDS ORDERED: D50W 25 GM/50 ML SYRINGE IV PRN (22:35)
[2019-03-19] MEDS ORDERED: GLUCAGON 1 MG/VIAL IM PRN (22:35)
[2019-03-19 22:36] VITALS: BMI 44.9
[2019-03-19] MEDS: HEPARIN 5000 UNIT/ML 1 ML VIAL SQ SCH (23:53)
[2019-03-19] MEDS: NA CHLORIDE 0.9% 1,000 ML IV SCH (23:54)
[2019-03-20] MEDS: TRAMADOL HCL 50 MG TAB PO PRN ×2 (02:05→08:03)
[2019-03-20] MEDS: PROMETHAZINE 25 MG/ML VIAL IV PRN ×4 (02:05→20:19)
[2019-03-20 07:17] LABS: Absolute Lymphocytes (CBC) 2.2 K/uL (0.7-4.9); Absolute Monocytes 0.6 K/uL (0.1-1.3); Absolute Neutrophil 5.7 K/uL (1.8-8.0); Basophils % 1.1 % (0-1.3); Eosinophils % 3.6 % (0-4.4); Hematocrit 34.6 % (36.0-45.0); MPV 9.1 fL (7.6-11.3); Monocytes % 6.3 % (3.3-12.3); RBC Red Blood Cell Count 4.07 M/uL (3.86-4.86)
[2019-03-20] MEDS: INSULIN -REGULAR HUMAN 50 UNIT/0.5 ML ML SQ SCH ×4 (07:30→20:14)
[2019-03-20 07:32] LABS: Potassium 4.7 mmol/L (3.5-5.1)
[2019-03-20] MEDS: CEFTRIAXONE/SWI 1gm 1 GM/10 ML SYR IV SCH (08:02)
[2019-03-20] MEDS: HEPARIN 5000 UNIT/ML 1 ML VIAL SQ SCH ×2 (08:03→20:15)
[2019-03-20] MEDS: NA CHLORIDE 0.9% 1,000 ML IV SCH ×2 (08:04→18:13)
[2019-03-20] MEDS ORDERED: PROPOFOL 200 MG/20 ML VIAL IV ONE ×2 (12:02)
--- NOTE | 2019-03-20 13:34 | P.PN ---
Subjective Date of Service: 03/20/19 Primary Care Provider: GI-Dr. Suazo Chief Complaint: UTI, abdominal pain Subjective: Other (Still with epigastric pain) Physical Examination - Vital Signs Temperature: 98.2 F Blood Pressure: 103/61 Pulse: 68 Respirations: 18 Pulse Ox (%): 100 - Physical Exam General: Alert, In no apparent distress, Cooperative HEENT: Atraumatic Neck: Supple Respiratory: Clear to auscultation bilaterally, Normal air movement Cardiovascular: Normal pulses, Regular rate/rhythm Gastrointestinal: Normal bowel sounds, Tenderness (epigastric pain) Integumentary: No tenderness/swelling, No erythema, No warmth, No cyanosis Neurological: Normal speech, Normal strength at 5/5 x4 extr, Normal tone, Normal affect - Studies Laboratory Data (last 24 hrs) 03/19/19 17:00: Creatinine 1.74 H 03/19/19 17:00: WBC 11.4 H, Hgb 12.0, Hct 36.0, Plt Count 302 03/19/19 17:00: Sodium 139, Potassium 4.6, BUN 30 H, Creatinine 1.71 H, Glucose 103, Total Bilirubin 0.2, AST 12 L, ALT 15, Alkaline Phosphatase 93, Lipase 86 Medications List Reviewed: Yes Assessment & Plan Discharge Plan: Home Plan to discharge in: 48 Hours Physician Review Additional Text: Impression: Epigastric abdominal pain with flank pain likely secondary to UTI complicated with possible underlying GERD Diarrhea likely chronic Diabetes mellitus type 2 Chronic renal disease, stage 3 Hypertension Bilateral below-knee amputations Plan: Epigastric abdominal pain with flank pain likely secondary to UTI complicated with possible underlying GERD: Patient with UTI at this time. Continue IV fluids and antibiotic therapy. Await urine and blood culture results. Patient still with epigastric pain. Patient had been seen by GI yesterday at his office. Case discussed with GI. Plan for EGD today to further evaluate. Possible underlying GERD with possible ulcers. Will continue with current medication and monitor closely. Will change from observation to inpatient due to multiple medical issues. Diarrhea likely chronic: Patient had reported diarrhea. Will need to rule out C. diff colitis. Will obtain stool for culture. Diabetes mellitus type 2: Continue with insulin sliding scale. Will consider restarting basal insulin. Will monitor closely. Chronic renal disease, stage 3: Overall stable. Will monitor closely. Hypertension: Blood pressures remain stable off medication at this time. Will hold off on medication therapy. Bilateral below-knee amputations: Patient has prosthetics bilateral. 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 Time Spent Managing Pts Care (In Minutes): 55
[2019-03-20] MEDS ORDERED: SODIUM CHLORIDE 0.9% 10ML INJ IV PRN (13:35)
[2019-03-20] MEDS: FENTANYL CITR 100 MCG/2 ML IV PRN ×2 (15:46→20:15)
--- NOTE | 2019-03-20 15:55 | RAD REPORT ---
EXAM DESCRIPTION: CT - Abdomen W Contrast - 03/20/2019 3:31 pm CLINICAL HISTORY: Abdominal pain, flank pain, pyelonephritis, prior appendectomy and cholecystectom y, status post colonoscopy COMPARISON: CT March 19 TECHNIQUE: Biphasic, helical CT imaging of the abdomen was performed following oral and 100 ml non-i onic IV contrast. All CT scans are performed using dose optimization technique as appropriate and may include automated exposure control or mA/KV adjustment according to patient size. FINDINGS: No suspicious findings in the lung bases. The liver, spleen, and pancreas show no focal findings. Fatty infiltration pattern is present in the liver. Cholecystectomy clips are present with no biliary tree dilatation. Renal function is symmetric. No pyelonephritis findings. No hydronephrosis, obstructing calculus or a cute renal process. No adrenal gland abnormality. No gastric dilatation or wall thickening. Imaged portions of the large and small bowel show no acute findings. No free air, free fluid or inflammatory stranding. No hernia, mass or bulky lymphadenopath y. Disc and bony degenerative changes are present. No acute bone process. IMPRESSION: No pyelonephritis or other acute CT abdomen finding. Fatty infiltration of the liver.
[2019-03-20] MEDS: INSULIN GLARGINE 100 UNITS/ML SQ SCH (20:15)
[2019-03-20] MEDS: PANTOPRAZOLE 40 MG INJ IVP SCH (20:19)
[2019-03-21] MEDS: FENTANYL CITR 100 MCG/2 ML IV PRN ×4 (00:15→20:00)
[2019-03-21] MEDS: PROMETHAZINE 25 MG/ML VIAL IV PRN ×4 (00:15→20:01)
[2019-03-21] MEDS: NA CHLORIDE 0.9% 1,000 ML IV SCH (04:20)
[2019-03-21 04:35] LABS: Absolute Lymphocytes (CBC) 2.1 K/uL (0.7-4.9); Absolute Monocytes 0.6 K/uL (0.1-1.3); Absolute Neutrophil 5.1 K/uL (1.8-8.0); Basophils % 0.7 % (0-1.3); Eosinophils % 2.9 % (0-4.4); Lymphocytes % 25.8 % (15.3-44.8); MPV 9.3 fL (7.6-11.3); Monocytes % 7.1 % (3.3-12.3); RBC Red Blood Cell Count 3.84 M/uL (3.86-4.86)
[2019-03-21 04:43] LABS: Potassium 4.5 mmol/L (3.5-5.1)
[2019-03-21] MEDS: INSULIN -REGULAR HUMAN 50 UNIT/0.5 ML ML SQ SCH ×4 (07:30→21:18)
[2019-03-21] MEDS: PANTOPRAZOLE 40 MG INJ IVP SCH (08:08)
[2019-03-21] MEDS: CEFTRIAXONE/SWI 1gm 1 GM/10 ML SYR IV SCH (08:09)
[2019-03-21] MEDS: HEPARIN 5000 UNIT/ML 1 ML VIAL SQ SCH ×2 (08:10→21:19)
--- NOTE | 2019-03-21 08:28 | CON ---
Date of Consultation: 03/20/2019 Reason For Consultation: Elevated BUN and creatinine. History Of Present Illness: This is a 43-year-old female with significant past medical history of di abetes complicated with neuropathy, no retinopathy; chronic kidney disease stage 3, does not know her baseline; hypertension; hyperlipidemia. The patient was in her regular state of health but started having abdominal pain, epigastric pain radiating to her back, not related to food with nausea and vom iting. The patient did undergo EGD today. Primary workup showed elevation in BUN and creatinine wit h the UTI. For that reason, we have been consulted. The patient denied taking any nonsteroidal. No recent change in her medication. Upon admission, blood pressure was down on the 100. Medications: Include insulin, Bystolic, Augmentin, ferrous sulfate. Past Medical History: 1.Diabetes. 2.Hypertension. 3.Hyperlipidemia. 4.Depression. Social History: Denies smoking. Denies drinking. Denied drug abuse. Family History: Positive for hypertension and lung cancer. Review of Systems: Head and Neck: No red eye. No ear pain. GI: Has nausea and vomiting. : No polyuria. No dysuria. No hematuria. Personal Care Home Administrator: No vaginal discharge. Respiratory: No shortness of breath. Cardiovascular: No chest pain. Endocrine: No polydipsia. Skin: No rash. Physical Examination: Vital Signs: When I saw the patient blood pressure 112/72, pulse of 88. Chest: Clear to auscultation. Heart: S1, S2 regular. Abdomen: Soft. Tenderness on the left upper quadrant. No guarding. Extremities: No edema. Current Medications: Include ceftriaxone, promethazine, heparin, Zofran, pantoprazole, IV fluid 100 per hour, fentanyl pain medication. Laboratory Data: WBC 8.9, H and H 11.7/34.6, platelets of 293. Sodium 141, potassium 4.7, bicarb 22 , BUN 28, creatinine 1.6, GFR of 34, calcium 7.2. Assessment And Plan: 1.Acute kidney injury secondary to prerenal, secondary to intractable gastrointestinal loss. I am go ing to continue hydration and we will monitor the patient closely. I am going to send for protein cr eatinine and obstruction uropathy has been ruled out already. 2.Given the acute kidney injury, hold ARB for the time being. 3.Urinary tract infection. Continue current antibiotic. We will follow up with culture. 4.Gastroenteritis, duodenitis, status post EGD. We will follow up with GI. YON/CHECO Voice ID: [id number] Report ID: [id number]
[2019-03-21] MEDS ORDERED: FUROSEMIDE 20 MG/ 2ML VIAL IV ONE (11:32)
--- NOTE | 2019-03-21 11:59 | P.DS ---
Admission Date: 03/20/19 Discharge Date: 03/21/19 Primary Care Provider: [facility]-Dr. Suazo Disposition: ROUTINE DISCHARGE Discharge Condition: GOOD Reason for Admission: UTI, abdominal pain Consultations: GI-Dr. Suazo Nephrology-Dr. Anne Procedures: CT Scan: FINDINGS: The evaluation of solid organs and vessels is limited secondary to the lack of contrast administration. The liver, spleen, pancreas, adrenals and kidneys appear grossly normal. Cholecystectomy. There is no evidence of diverticulitis. IMPRESSION: No acute abnormality is displayed. Ab CT scan: FINDINGS: No suspicious findings in the lung bases. The liver, spleen, and pancreas show no focal findings. Fatty infiltration pattern is present in the liver. Cholecystectomy clips are present with no biliary tree dilatation. Renal function is symmetric. No pyelonephritis findings. No hydronephrosis, obstructing calculus or acute renal process. No adrenal gland abnormality. No gastric dilatation or wall thickening. Imaged portions of the large and small bowel show no acute findings. No free air, free fluid or inflammatory stranding. No hernia, mass or bulky lymphadenopathy. Disc and bony degenerative changes are present. No acute bone process. IMPRESSION: No pyelonephritis or other acute CT abdomen finding. Fatty infiltration of the liver. Procedure: EGD showing mild gastritis and duodenitis. Biopsies obtained Medical Problem List: Epigastric abdominal pain with flank pain secondary to UTI, urine culture positive for Klebsiella and status post EGD showing mild gastritis and duodenitis Diarrhea, chronic likely related to above Diabetes mellitus type 2, insulin-dependent Acute on chronic Chronic renal disease, stage 3, with mild dehydration Hypertension Bilateral below-knee amputations Brief History of Present Illness: 43-year-old female presented emergency room with epigastric abdominal and left flank pain. Patient with history of diabetes, chronic renal disease and bilateral below-knee amputation. Initial CT scan unremarkable. Urinalysis consistent for UTI. Patient appeared dehydrated. Patient was admitted for treatment and evaluation. Hospital Course: Patient presented with epigastric abdominal pain with left-sided flank pain. Patient found to have UTI with urine culture positive for Klebsiella. CT scan unremarkable. Patient received IV fluids and antibiotics. Nephrology was consulted due to her underlying chronic renal disease. GI was consulted to further evaluate the epigastric pain EGD performed showed mild gastritis and duodenitis. Biopsies obtained. Patient has started on Protonix 40 mg 1 pill twice daily. Patient has tolerated her diet. Symptoms have improved. At discharge she will continue with Protonix 40 mg 1 pill twice daily. Recommend to follow up with GI in 1-2 weeks to follow up this hospitalization and biopsy report. For her UTI, patient will continue with Keflex 500 mg 1 pill twice daily for 7 days. UTI prevention education will be provided. Recommend to follow up with Nephrology in 2-4 weeks to follow her progress. Patient with acute on chronic renal disease, stage III. Patient appeared dehydrated due to UTI and duodenitis. Patient receive IV fluids with improvement. Renal stable at this time. Nephrology was consulted. Recommend to follow up with Nephrology in 2-4 weeks. Recommend to recheck lab-BMP at that time. Patient with diabetes mellitus type 2, insulin-dependent. Blood sugar slightly elevated. At discharge she will continue with her insulin regimen-Levemir 35 units subcu twice daily and NovoLog. Recommend to maintain blood sugars less than 140 fasting and less than 200 after meals. Further adjustment can be done by her PCP. Patient with hypertension. Blood pressures initially low. Blood pressures have increased. At discharge she will continue with her medications-Norvasc 10 mg daily, lisinopril 20 mg daily, and Bystolic 10 mg daily. She is to hold her medication if blood pressure less than 120 systolic. Recommend to maintain blood pressures less 150/80. Further adjustment can be done by her PCP. Patient with bilateral below-knee amputations. Patient with prosthetics. Fall precautions in place. Patient with chronic diarrhea. Stool cultures obtained. Will continue with lactobacillus twice daily at discharge. This can be further monitored and addressed by GI. Vital Signs/Physical Exam: Temp Pulse Resp BP Pulse Ox 97.6 F 66 16 151/54 H 98 03/21/19 08:00 03/21/19 08:00 03/21/19 08:00 03/21/19 08:00 03/21/19 08:00 General: Alert, In no apparent distress, Oriented x3, Cooperative HEENT: Atraumatic Neck: Supple Respiratory: Clear to auscultation bilaterally, Normal air movement Cardiovascular: Normal pulses, Regular rate/rhythm Gastrointestinal: Normal bowel sounds, Soft and benign, Non-distended, No tenderness, No masses, No rebound, No guarding Musculoskeletal: No erythema, No tenderness, No warmth Integumentary: No tenderness/swelling, No erythema, No warmth, No cyanosis Neurological: Normal speech, Normal strength at 5/5 x4 extr, Normal tone Laboratory Data at Discharge: WBC 8.1 K/uL (4.3-10.9) 03/21/19 03:32 Hgb 11.1 g/dL (12.0-15.0) L 03/21/19 03:32 Hct 33.0 % (36.0-45.0) L 03/21/19 03:32 Plt Count 265 K/uL (152-406) 03/21/19 03:32 Sodium 140 mmol/L (136-145) 03/21/19 03:32 Potassium 4.5 mmol/L (3.5-5.1) 03/21/19 03:32 BUN 27 mg/dL (7-18) H 03/21/19 03:32 Creatinine 1.76 mg/dL (0.55-1.3) H 03/21/19 03:32 Glucose 140 mg/dL (74-106) H 03/21/19 03:32 Magnesium 2.0 mg/dL (1.8-2.4) 03/21/19 03:32 Total Bilirubin 0.2 mg/dL (0.2-1.0) 03/19/19 17:00 AST 12 U/L (15-37) L 03/19/19 17:00 ALT 15 U/L (12-78) 03/19/19 17:00 Alkaline Phosphatase 93 U/L (45-117) 03/19/19 17:00 Lipase 86 U/L (73-393) 03/19/19 17:00 Home Medications: Insulin Aspart [Novolog Flexpen] 35 unit SQ AC 02/04/16 Insulin Detemir [Levemir Flextouch] 35 unit SQ BID 6AM 6PM 02/04/16 Nebivolol HCl [Bystolic*] 10 mg PO DAILY 11/28/17 Vitamin [ VITAMIN*] 1 tab PO DAILY #30 tab 12/02/17 Amlodipine Besylate 10 mg PO DAILY 03/19/19 Lisinopril [Prinivil*] 20 mg PO DAILY 03/19/19 Tramadol HCl [Ultram] 50 mg PO Q6HP PRN 03/19/19 Acidophilus/Bifido Longum [Lactobacillus Capsule] 16 mg PO BID #60 capsule 03/21 Cephalexin [Keflex] 500 mg PO BID #14 cap 03/21/19 Pantoprazole [Protonix Tab] 40 mg PO BID #60 tab 03/21/19 New Medications: Acidophilus/Bifido Longum [Lactobacillus Capsule] 16 mg PO BID #60 capsule Cephalexin [Keflex] 500 mg PO BID #14 cap Pantoprazole [Protonix Tab] 40 mg PO BID #60 tab Patient Discharge Instructions: 1. Recommend a follow up with her PCP in 1 week to follow up this hospitalization. 2. Patient presented with epigastric abdominal pain with left-sided flank pain. Patient found to have UTI with urine culture positive for Klebsiella. CT scan unremarkable. Patient received IV fluids and antibiotics. Nephrology was consulted due to her underlying chronic renal disease. GI was consulted to further evaluate the epigastric pain EGD performed showed mild gastritis and duodenitis. Biopsies obtained. Patient has started on Protonix 40 mg 1 pill twice daily. Patient has tolerated her diet. Symptoms have improved. At discharge she will continue with Protonix 40 mg 1 pill twice daily. Recommend to follow up with GI in 1-2 weeks to follow up this hospitalization and biopsy report. For her UTI, patient will continue with Keflex 500 mg 1 pill twice daily for 7 days. UTI prevention education will be provided. Recommend to follow up with Nephrology in 2-4 weeks to follow her progress. 3. Patient with acute on chronic renal disease, stage III. Patient appeared dehydrated due to UTI and duodenitis. Patient receive IV fluids with improvement. Renal stable at this time. Nephrology was consulted. Recommend to follow up with Nephrology in 2-4 weeks. Recommend to recheck lab-BMP at that time. 4. Patient with diabetes mellitus type 2, insulin-dependent. Blood sugar slightly elevated. At discharge she will continue with her insulin regimen-Levemir 35 units subcu twice daily and NovoLog. Recommend to maintain blood sugars less than 140 fasting and less than 200 after meals. Further adjustment can be done by her PCP. 5. Patient with hypertension. Blood pressures initially low. Blood pressures have increased. At discharge she will continue with her medications-Norvasc 10 mg daily, lisinopril 20 mg daily, and Bystolic 10 mg daily. She is to hold her medication if blood pressure less than 120 systolic. Recommend to maintain blood pressures less 150/80. Further adjustment can be done by her PCP. 6. Patient with bilateral below-knee amputations. Patient with prosthetics. Fall precautions in place. 7. Patient with chronic diarrhea. Stool cultures obtained. Will continue with lactobacillus twice daily at discharge. This can be further monitored and addressed by GI. Diet: GI soft, ADA Activity: Fall precautions Time spent managing pt's care (in minutes): 55
[2019-03-21] MEDS ORDERED: NA CHLORIDE 0.9% 1,000 ML IV SCH (12:00)
[2019-03-21] MEDS ORDERED: FUROSEMIDE 40 MG TABLET PO ONE (12:45)
--- NOTE | 2019-03-21 12:59 | RAD REPORT ---
EXAM DESCRIPTION: Mona Single View03/21/2019 12:54 pm CLINICAL HISTORY: Chest pain COMPARISON: March 19, 2019 FINDINGS: The lungs appear clear of acute infiltrate. The heart is mildly enlarged. Patient is in a poor degree of inspiration IMPRESSION: No acute abnormalities displayed
--- NOTE | 2019-03-21 16:29 | PN ---
Date of Progress Note: 03/21/2019 Subjective: The patient was admitted with gastroenteritis. EGD showing duodenitis. The patient is still complaining from epigastric pain, nausea without any vomiting. The patient feels that she is a little bit bloated and complaining of decreasing urine output. Physical Examination: Vital Signs: Blood pressure 151/54, pulse of 66. Chest: Clear to auscultation. Heart: S1, S2 regular. Abdomen: Soft. Mild tenderness on the epigastric area. Extremities: Bilateral below-knee amputation. Trace edema. Laboratory Data: WBC 8.1, H and H 11.1/33, platelets 265. Sodium of 140, potassium 4.5, bicarb 24, BUN 27, creatinine 1.7, GFR of 32, calcium 7.4, magnesium of 2. CT abdomen and pelvis, no hydronephr osis. Current Medications: The patient on its include: 1.Ceftriaxone. 2.Heparin. 3.Tylenol. 4.Zofran. 5.Pantoprazole. 6.IV fluid normal saline at 100 per hour. Assessment And Plan: 1.Acute kidney injury secondary to GI, poor intake. Keep holding ARB for the time being and we will monitor the patient. 2.Hypertension, controlled optimal. Keep holding ARB. I am going to give the patient single dose o f Lasix and I am going to go ahead and decrease the IV fluid to 50 per hour. 3.Duodenitis, gastroenteritis. We will follow up with the primary. 4.Diabetes as by primary. HERNESTO Voice ID: [id number] Report ID: [id number]
[2019-03-21] MEDS ORDERED: NACHLORIDE 0.45% 1,000 ML IV SCH (17:00)
[2019-03-21] MEDS: CEPHALEXIN 500 MG CAP PO SCH (17:21)
[2019-03-21] MEDS: PANTOPRAZOLE 40MG TABLET PO SCH (17:21)
[2019-03-21] MEDS ORDERED: CEPHALEXIN 500 MG CAP PO SCH (21:00)
[2019-03-21] MEDS: INSULIN GLARGINE 100 UNITS/ML SQ SCH (21:18)
[2019-03-21] MEDS: NEPRO SHAKE 237 ML CAN PO SCH (21:22)
[2019-03-22] MEDS: PROMETHAZINE 25 MG/ML VIAL IV PRN ×4 (00:03→12:39)
[2019-03-22] MEDS: FENTANYL CITR 100 MCG/2 ML IV PRN ×4 (00:04→12:41)
[2019-03-22 07:15] LABS: Absolute Lymphocytes (CBC) 2.4 K/uL (0.7-4.9); Absolute Monocytes 0.6 K/uL (0.1-1.3); Absolute Neutrophil 5.9 K/uL (1.8-8.0); Basophils % 1.3 % (0-1.3); Eosinophils % 3.3 % (0-4.4); Hematocrit 30.9 % (36.0-45.0); Lymphocytes % 25.6 % (15.3-44.8); MPV 9.3 fL (7.6-11.3); Monocytes % 6.9 % (3.3-12.3); RBC Red Blood Cell Count 3.65 M/uL (3.86-4.86)
[2019-03-22 07:18] LABS: Potassium 4.7 mmol/L (3.5-5.1)
[2019-03-22] MEDS: INSULIN -REGULAR HUMAN 50 UNIT/0.5 ML ML SQ SCH ×4 (08:32→20:55)
[2019-03-22] MEDS: CEPHALEXIN 500 MG CAP PO SCH ×2 (08:32→20:56)
[2019-03-22] MEDS: PANTOPRAZOLE 40MG TABLET PO SCH ×2 (08:32→16:43)
[2019-03-22] MEDS: HEPARIN 5000 UNIT/ML 1 ML VIAL SQ SCH ×2 (08:33→20:56)
[2019-03-22] MEDS: NEPRO SHAKE 237 ML CAN PO SCH ×2 (08:33→20:57)
[2019-03-22] MEDS ORDERED: FUROSEMIDE 40 MG/4 ML VIAL IV ONE (11:21)
--- NOTE | 2019-03-22 12:30 | P.PN ---
Subjective Date of Service: 03/22/19 Primary Care Provider: [facility]-Dr. Suazo Chief Complaint: UTI, LORIN abdominal pain, N/V, dehydration, sepsis Subjective: No new changes (Almost ready to discharge but still feeling somewhat weak and nephrology doing some further tests today. No N/V and improved LORIN pain.) Review of Systems General: Weakness, Malaise (Improving slowly ) Physical Examination - Vital Signs Temperature: 97.4 F Blood Pressure: 146/68 Pulse: 74 Respirations: 18 Pulse Ox (%): 97 - Physical Exam General: Alert, In no apparent distress, Oriented x3, Cooperative, Disheveled HEENT: Atraumatic, Normocephalic, PERRLA, EOMI Neck: Supple Respiratory: Normal air movement Cardiovascular: Regular rate/rhythm Gastrointestinal: Soft and benign, No rebound, No guarding, Tenderness (minimal & obese) Neurological: Normal speech, Normal strength at 5/5 x4 extr - Studies Microbiology Data (last 24 hrs): 03/19/19 16:15 Clean Catch Urine Mobile Count - Final >100,000 CFU/ML. 03/19/19 16:15 Clean Catch Urine - Final Klebsiella Pneumoniae Medications List Reviewed: Yes Assessment And Plan - Current Problems (Diagnosis) (1) Epigastric abdominal pain Current Visit: Yes Status: Acute (2) Nausea & vomiting Current Visit: Yes Status: Acute (3) CKD (chronic kidney disease) Current Visit: Yes Status: Acute Qualifiers: Chronic kidney disease stage: stage 3 (moderate) Qualified Code(s): N18.3 - Chronic kidney disease, stage 3 (moderate) (4) Diabetes mellitus Current Visit: Yes Status: Acute Qualifiers: Diabetes mellitus type: type 1 Diabetes mellitus complication status: with kidney complications Diabetes mellitus complication detail: with chronic kidney disease Chronic kidney disease stage: stage 3 (moderate) Qualified Code(s): E10.22 - Type 1 diabetes mellitus with diabetic chronic kidney disease ; N18.3 - Chronic kidney disease, stage 3 (moderate) (5) HTN (hypertension) Current Visit: Yes Status: Acute Qualifiers: Hypertension type: essential hypertension Qualified Code(s): I10 - Essential (primary) hypertension (6) History of below knee amputation Current Visit: No Status: Acute Qualifiers: Laterality: left Qualified Code(s): Z89.512 - Acquired absence of left leg below knee (7) Morbid obesity Current Visit: No Status: Acute (8) Weakness Onset Date: 02/04/16 Current Visit: No Status: Resolved (9) Gastritis Current Visit: Yes Status: Acute (10) Duodenitis Current Visit: Yes Status: Acute - Plan Rec: 1) continue PPI therapy 2) await nephrology tests and plan 3) GI clinic f/u in 1-2 weeks Physician Review Additional Text: Impression: Epigastric abdominal pain with flank pain likely secondary to UTI complicated with possible underlying GERD Diarrhea likely chronic Diabetes mellitus type 2 Chronic renal disease, stage 3 Hypertension Bilateral below-knee amputations Plan: Epigastric abdominal pain with flank pain likely secondary to UTI complicated with possible underlying GERD: Patient with UTI at this time. Continue IV fluids and antibiotic therapy. Await urine and blood culture results. Patient still with epigastric pain. Patient had been seen by GI yesterday at his office. Case discussed with GI. Plan for EGD today to further evaluate. Possible underlying GERD with possible ulcers. Will continue with current medication and monitor closely. Will change from observation to inpatient due to multiple medical issues. Diarrhea likely chronic: Patient had reported diarrhea. Will need to rule out C. diff colitis. Will obtain stool for culture. Diabetes mellitus type 2: Continue with insulin sliding scale. Will consider restarting basal insulin. Will monitor closely. Chronic renal disease, stage 3: Overall stable. Will monitor closely. Hypertension: Blood pressures remain stable off medication at this time. Will hold off on medication therapy. Bilateral below-knee amputations: Patient has prosthetics bilateral. 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
--- NOTE | 2019-03-22 16:08 | P.PN ---
Subjective Date of Service: 03/22/19 Primary Care Provider: GI-Dr. Suazo Chief Complaint: UTI, LORIN abdominal pain, N/V, dehydration, sepsis Subjective: Other (Pain to the abdomen improved. Patient still lethargic. Patient still requesting IV pain medication.) Physical Examination - Vital Signs Temperature: 97.4 F Blood Pressure: 146/68 Pulse: 74 Respirations: 18 Pulse Ox (%): 97 - Physical Exam General: Alert, In no apparent distress, Oriented x3, Cooperative HEENT: Atraumatic Neck: Supple Respiratory: Clear to auscultation bilaterally, Normal air movement Cardiovascular: Normal pulses, Regular rate/rhythm Gastrointestinal: Normal bowel sounds, Soft and benign, Non-distended, Tenderness (Less pain to the epigastric region) Neurological: Normal speech, Normal strength at 5/5 x4 extr, Normal tone - Studies Medications List Reviewed: Yes Assessment & Plan Discharge Plan: Home Plan to discharge in: 24 Hours Physician Review Additional Text: Impression: Epigastric abdominal pain with flank pain secondary to UTI with urine culture positive for Klebsiella, status post EGD showing duodenitis and gastritis Diarrhea likely chronic Diabetes mellitus type 2, insulin-dependent Acute on Chronic renal disease, stage 3 Hypertension Bilateral below-knee amputations Plan: Epigastric abdominal pain with flank pain secondary to UTI with urine culture positive for Klebsiella, status post EGD showing duodenitis and gastritis: Patient was to be discharge home today but still with increased fatigue. Patient continues with antibiotic therapy. Encourage oral intake. Case discussed with nephrology. Nephrology discontinued IV fluids. Lasix to be given. Will discontinue IV pain medication and encourage oral medication instead. Patient continues with Protonix. Anticipate discharge in the next 24 hr if clinically improved. Diarrhea likely chronic: C diff negative. Diarrhea resolving.. Diabetes mellitus type 2, insulin-dependent: Restart basal insulin. Continue with insulin sliding scale. Will consider restarting basal insulin. Will monitor closely. Acute on Chronic renal disease, stage 3: Nephrology has adjusted fluids. Continue to hold lisinopril. Pharmacy to adjust medications. Hypertension: Restart Bystolic. Continue to hold Norvasc and lisinopril. Bilateral below-knee amputations: Patient has prosthetics bilateral. Will transition off IV pain medication. Recommend p.o. medication. Physical therapy to ambulate. Time Spent Managing Pts Care (In Minutes): 55
--- NOTE | 2019-03-22 17:10 | PN ---
Date of Progress Note: 03/22/2019 Subjective: The patient admitted with gastroenteritis, dehydration, and acute kidney injury. Physical Examination: Vital Signs: Blood pressure of 146/68, pulse of 74, afebrile. Chest: Clear to auscultation. Heart: S1, S2 regular. Abdomen: Soft, nontender. Extremities: Bilateral below-knee amputee. No edema. Laboratory Data: H and H 10.5/30.9, sodium 141, potassium 4.7, bicarb 20, BUN 27, creatinine 1.9, GF R 28, calcium 7.5, magnesium of 2. Current Medication: 1.Normal saline at 50 per hour. 2.Cephalexin. 3.Promethazine. 4.Zofran. 5.Tramadol. Assessment And Plan: 1.Acute kidney injury, slightly on the wet side. DC IV fluid. Start the patient on Lasix. 2.Hypertension controlled. Optimal. We will monitor. Keep holding all blood pressure medication. 3.Gastritis. Continue symptomatic treatment. 4.Urinary tract infection secondary to Klebsiella pneumonia. The patient on Keflex. Will follow up . 5.Acute kidney injury, unknown etiology, slightly on the over volume side. Discontinue IV fluid. W e will start the Lasix. I am going to go ahead and send for full serology. We will send for urine eosinophil and we will follow up. HERNESTO Voice ID: [id number] Report ID: [id number]
[2019-03-22] MEDS ORDERED: INSULIN GLARGINE 100 UNITS/ML SQ SCH (21:00)
[2019-03-22] MEDS: ONDANSETRON 4 MG/2 ML VIAL IV PRN (21:08)
[2019-03-22] MEDS: TRAMADOL HCL 50 MG TAB PO PRN (21:08)
[2019-03-22 22:07] LABS: Urine Appearance CLEAR; Urine Bilirubin NEGATIVE (NEG); Urine Blood 1+ (NEG); Urine Color YELLOW; Urine Glucose 1+ (NEG); Urine Protein 2+ (NEG); Urine Specific Gravity <=1.005 (1.005-1.030); Urine Urobilinogen 0.2 mg/dL (0.2-1.0); Urine pH 5.5 (5.0-7.0)
[2019-03-22 22:09] LABS: Urine Microscopic Reflex ORDER UMIC
[2019-03-22 22:19] LABS: Urine Bacteria <20 /HPF (<20); Urine Culture Reflex Order NOT NEEDED; Urine RBC <5 /HPF (NONE SEEN)
[2019-03-22 23:54] VITALS: O2SAT 100
[2019-03-23] MEDS: TRAMADOL HCL 50 MG TAB PO PRN ×2 (03:05→08:36)
[2019-03-23] MEDS: ONDANSETRON 4 MG/2 ML VIAL IV PRN (03:06)
[2019-03-23 03:53] LABS: Urine Protein/Creatinine Ratio 6.26 ratio (<0.15)
[2019-03-23 04:45] VITALS: TEMP 97.4
[2019-03-23 06:26] LABS: Absolute Lymphocytes (CBC) 2.2 K/uL (0.7-4.9); Absolute Monocytes 0.7 K/uL (0.1-1.3); Absolute Neutrophil 5.9 K/uL (1.8-8.0); Basophils % 1.1 % (0-1.3); Eosinophils % 3.7 % (0-4.4); Hematocrit 30.7 % (36.0-45.0); MPV 8.7 fL (7.6-11.3); Monocytes % 7.1 % (3.3-12.3); RBC Red Blood Cell Count 3.66 M/uL (3.86-4.86)
[2019-03-23 07:26] LABS: Potassium 4.3 mmol/L (3.5-5.1)
[2019-03-23 07:27] LABS: Albumin 2.1 g/dL (3.4-5.0); Magnesium 1.8 mg/dL (1.8-2.4)
[2019-03-23] MEDS ORDERED: GABAPENTIN 100 MG CAP PO PRN (07:33)
[2019-03-23] MEDS: CEPHALEXIN 500 MG CAP PO SCH (08:36)
[2019-03-23] MEDS: PANTOPRAZOLE 40MG TABLET PO SCH (08:36)
[2019-03-23] MEDS: HEPARIN 5000 UNIT/ML 1 ML VIAL SQ SCH (08:41)
[2019-03-23] MEDS: INSULIN -REGULAR HUMAN 50 UNIT/0.5 ML ML SQ SCH (08:45)
[2019-03-23 08:48] VITALS: BP 151/69
[2019-03-23] MEDS ORDERED: NEBIVOLOL HCL 5 MG TAB PO SCH (09:00)
--- NOTE | 2019-03-23 09:20 | P.DS ---
Admission Date: 03/20/19 Discharge Date: 03/23/19 Primary Care Provider: LILY-Dr. Suazo Disposition: ROUTINE DISCHARGE Discharge Condition: GOOD Reason for Admission: UTI, LORIN abdominal pain, N/V, dehydration, sepsis Consultations: GI-Dr. Suazo Nephrology-Dr. Anne/Robin Procedures: CT Scan: FINDINGS: The evaluation of solid organs and vessels is limited secondary to the lack of contrast administration. The liver, spleen, pancreas, adrenals and kidneys appear grossly normal. Cholecystectomy. There is no evidence of diverticulitis. IMPRESSION: No acute abnormality is displayed. Ab CT scan: FINDINGS: No suspicious findings in the lung bases. The liver, spleen, and pancreas show no focal findings. Fatty infiltration pattern is present in the liver. Cholecystectomy clips are present with no biliary tree dilatation. Renal function is symmetric. No pyelonephritis findings. No hydronephrosis, obstructing calculus or acute renal process. No adrenal gland abnormality. No gastric dilatation or wall thickening. Imaged portions of the large and small bowel show no acute findings. No free air, free fluid or inflammatory stranding. No hernia, mass or bulky lymphadenopathy. Disc and bony degenerative changes are present. No acute bone process. IMPRESSION: No pyelonephritis or other acute CT abdomen finding. Fatty infiltration of the liver. Procedure: EGD showing mild gastritis and duodenitis. Biopsies obtained Medical Problem List: Epigastric abdominal pain with flank pain secondary to UTI, urine culture positive for Klebsiella and status post EGD showing mild gastritis and duodenitis Diarrhea, chronic likely related to above Diabetes mellitus type 2, insulin-dependent Acute on chronic Chronic renal disease, stage 3 Hypertension Bilateral below-knee amputations Brief History of Present Illness: 43-year-old female presented emergency room with epigastric abdominal and left flank pain. Patient with history of diabetes, chronic renal disease and bilateral below-knee amputation. Initial CT scan unremarkable. Urinalysis consistent for UTI. Patient appeared dehydrated. Patient was admitted for treatment and evaluation. Hospital Course: Patient presented with epigastric abdominal pain with left-sided flank pain. Patient found to have UTI with urine culture positive for Klebsiella. CT scan unremarkable. Patient received IV fluids and antibiotics. Nephrology was consulted due to her underlying chronic renal disease. GI was consulted to further evaluate the epigastric pain EGD performed showed mild gastritis and duodenitis. Biopsies obtained. Patient has started on Protonix 40 mg 1 pill twice daily. Patient has tolerated her diet. Done slowly improved during the course of her stay. Discharge was delayed due to this. At discharge she will continue with Protonix 40 mg 1 pill twice daily. Patient will be given tramadol 50 mg 3 times a day as needed for pain along with Neurontin 100 mg 3 times a day as needed for pain. Recommend to follow up with GI in 1-2 weeks to follow up this hospitalization and biopsy report. For her UTI, patient will continue with Keflex 250 mg 1 pill twice daily for 5 more days. Antibiotics adjusted per renal function. UTI prevention education will be provided. Recommend to follow up with Nephrology in 2-4 weeks to follow her progress. Patient with acute on chronic renal disease, stage III. Patient appeared dehydrated due to UTI and duodenitis. Patient receive IV fluids with improvement but also required Lasix. Renal function stable at this time. Medications have been adjusted. Lisinopril held at this time. Nephrology was consulted. Nephrology has adjusted her medication. Recommend to follow up with Nephrology in 2-4 weeks. Recommend to recheck lab-BMP at that time. No further use of nonsteroidal anti-inflammatories. Future medications will need to be renally dosed. Antibiotic has been adjusted per renal function. Patient with diabetes mellitus type 2, insulin-dependent. Blood sugar slightly elevated. At discharge she will continue with her insulin regimen-Levemir 35 units subcu twice daily and NovoLog. Recommend to maintain blood sugars less than 140 fasting and less than 200 after meals. Further adjustment can be done by her PCP. Patient with hypertension. Blood pressures initially low. Blood pressure has improved. Medications have been adjusted due to her acute on chronic kidney disease. At discharge Norvasc 10 mg and lisinopril 20 mg had been held. At discharge she will continue with her medication-Bystolic 10 mg daily. She is to monitor her blood pressure daily. If her blood pressure continues to rise Norvasc can be restarted. Patient may benefit with lisinopril in the future if okay with nephrology. This can be further addressed by Nephrology. Recommended maintain blood pressures less 150/80. Further adjustment can be done by her PCP or nephrology. Patient with bilateral below-knee amputations. Patient with prosthetics. Fall precautions in place. Patient with chronic diarrhea. Stool cultures obtained. Will continue with lactobacillus twice daily at discharge. This can be further monitored and addressed by GI. Vital Signs/Physical Exam: Temp Pulse Resp BP Pulse Ox 97.4 F 71 18 151/69 H 98 03/23/19 08:00 03/23/19 08:00 03/23/19 08:00 03/23/19 08:00 03/23/19 08:00 General: Alert, In no apparent distress, Oriented x3, Cooperative HEENT: Atraumatic Neck: Supple Respiratory: Clear to auscultation bilaterally, Normal air movement Cardiovascular: Normal pulses, Regular rate/rhythm Gastrointestinal: Normal bowel sounds, Soft and benign, Non-distended, No tenderness, No masses, No rebound, No guarding Musculoskeletal: No erythema, No tenderness, No warmth Integumentary: No erythema, No warmth, No cyanosis Neurological: Normal speech, Normal strength at 5/5 x4 extr, Normal tone, Other (Bilateral below knee amputations, chronic) Laboratory Data at Discharge: WBC 9.3 K/uL (4.3-10.9) 03/23/19 06:16 Hgb 10.6 g/dL (12.0-15.0) L 03/23/19 06:16 Hct 30.7 % (36.0-45.0) L 03/23/19 06:16 Plt Count 263 K/uL (152-406) 03/23/19 06:16 Sodium 139 mmol/L (136-145) 03/23/19 06:16 Potassium 4.3 mmol/L (3.5-5.1) 03/23/19 06:16 BUN 28 mg/dL (7-18) H 03/23/19 06:16 Creatinine 2.02 mg/dL (0.55-1.3) H 03/23/19 06:16 Glucose 246 mg/dL (74-106) H 03/23/19 06:16 Phosphorus 4.0 mg/dL (2.5-4.9) 03/23/19 06:16 Magnesium 1.8 mg/dL (1.8-2.4) 03/23/19 06:16 Total Bilirubin 0.2 mg/dL (0.2-1.0) 03/19/19 17:00 AST 12 U/L (15-37) L 03/19/19 17:00 ALT 15 U/L (12-78) 03/19/19 17:00 Alkaline Phosphatase 93 U/L (45-117) 03/19/19 17:00 Lipase 86 U/L (73-393) 03/19/19 17:00 Home Medications: Insulin Aspart [Novolog Flexpen] 35 unit SQ AC 02/04/16 Insulin Detemir [Levemir Flextouch] 35 unit SQ BID 6AM 6PM 02/04/16 Nebivolol HCl [Bystolic*] 10 mg PO DAILY 11/28/17 Vitamin [ VITAMIN*] 1 tab PO DAILY #30 tab 12/02/17 Amlodipine Besylate 10 mg PO DAILY 03/19/19 Acidophilus/Bifido Longum [Lactobacillus Capsule] 16 mg PO BID #60 capsule 03/21 Pantoprazole [Protonix Tab] 40 mg PO BID #60 tab 03/21/19 Cephalexin [Keflex] 250 mg PO BID #10 cap 03/23/19 Gabapentin [Neurontin*] 100 mg PO TID PRN #30 cap 03/23/19 Tramadol HCl [Ultram] 50 mg PO Q6HP PRN #10 tablet 03/23/19 New Medications: Acidophilus/Bifido Longum [Lactobacillus Capsule] 16 mg PO BID #60 capsule Cephalexin [Keflex] 250 mg PO BID #10 cap Gabapentin [Neurontin*] 100 mg PO TID PRN #30 cap PRN Reason: Pain Scale 2-4 (Mild) Pantoprazole [Protonix Tab] 40 mg PO BID #60 tab Tramadol HCl [Ultram] 50 mg PO Q6HP PRN #10 tablet PRN Reason: Pain Scale 5-7 (Moderate) Patient Discharge Instructions: 1. Recommend a follow up with her PCP in 1 week to follow up this hospitalization. 2. Patient presented with epigastric abdominal pain with left-sided flank pain. Patient found to have UTI with urine culture positive for Klebsiella. CT scan unremarkable. Patient received IV fluids and antibiotics. Nephrology was consulted due to her underlying chronic renal disease. GI was consulted to further evaluate the epigastric pain EGD performed showed mild gastritis and duodenitis. Biopsies obtained. Patient has started on Protonix 40 mg 1 pill twice daily. Patient has tolerated her diet. Done slowly improved during the course of her stay. Discharge was delayed due to this. At discharge she will continue with Protonix 40 mg 1 pill twice daily. Patient will be given tramadol 50 mg 3 times a day as needed for pain along with Neurontin 100 mg 3 times a day as needed for pain. Recommend to follow up with GI in 1-2 weeks to follow up this hospitalization and biopsy report. For her UTI, patient will continue with Keflex 250 mg 1 pill twice daily for 5 more days. Antibiotics adjusted per renal function. UTI prevention education will be provided. Recommend to follow up with Nephrology in 2-4 weeks to follow her progress. 3. Patient with acute on chronic renal disease, stage III. Patient appeared dehydrated due to UTI and duodenitis. Patient receive IV fluids with improvement but also required Lasix. Renal function stable at this time. Medications have been adjusted. Lisinopril held at this time. Nephrology was consulted. Nephrology has adjusted her medication. Recommend to follow up with Nephrology in 2-4 weeks. Recommend to recheck lab-BMP at that time. No further use of nonsteroidal anti- inflammatories. Future medications will need to be renally dosed. Antibiotic has been adjusted per renal function. 4. Patient with diabetes mellitus type 2 , insulin-dependent. Blood sugar slightly elevated. At discharge she will continue with her insulin regimen-Levemir 35 units subcu twice daily and NovoLog. Recommend to maintain blood sugars less than 140 fasting and less than 200 after meals. Further adjustment can be done by her PCP. 5. Patient with hypertension. Blood pressures initially low. Blood pressure has improved. Medications have been adjusted due to her acute on chronic kidney disease. At discharge Norvasc 10 mg and lisinopril 20 mg had been held. At discharge she will continue with her medication-Bystolic 10 mg daily. She is to monitor her blood pressure daily. If her blood pressure continues to rise Norvasc can be restarted. Patient may benefit with lisinopril in the future if okay with nephrology. This can be further addressed by Nephrology. Recommended maintain blood pressures less 150/80. Further adjustment can be done by her PCP or nephrology. 6. Patient with bilateral below-knee amputations. Patient with prosthetics. Fall precautions in place. 7. Patient with chronic diarrhea. Stool cultures obtained. Will continue with lactobacillus twice daily at discharge. This can be further monitored and addressed by GI. Diet: GI soft, ADA Activity: Fall precautions Time spent managing pt's care (in minutes): 55
--- NOTE | 2019-03-23 09:35 | P.PN ---
Subjective Date of Service: 03/23/19 Primary Care Provider: GI-Dr. Suazo Chief Complaint: UTI, LORIN abdominal pain, N/V, dehydration, sepsis Subjective: No new changes Pt was admitted for CHUCK and UTI today Stable VS have mild pain Cr stable Serology W/U pending UPC of 6.0 can be discharged from nephrology point of view to follow up in nephrology clinic in in 3-4wks Physical Examination - Vital Signs Temperature: 97.4 F Blood Pressure: 151/69 Pulse: 71 Respirations: 18 Pulse Ox (%): 98 - Physical Exam General: Oriented x3, Mild distress HEENT: Atraumatic, Normocephalic Neck: Without JVD or thyroid abnormality Respiratory: Clear to auscultation bilaterally, Normal air movement Cardiovascular: No edema, Regular rate/rhythm, Normal S1 S2, No gallops, No rubs , No murmurs Gastrointestinal: Normal bowel sounds Musculoskeletal: Other (Bl BKA ) - Studies Medications List Reviewed: Yes Assessment And Plan Physician Review Additional Text: Acute kidney injury, Cr is stable now UPC of 6.0 serology w/u sent Off JORGE will follow up an OP HTN Controlled Abd pain S/P EGD : gastritis and dueodinitis will recommend to change PPi to famotidine UTI to cont on Keflex mild anemia Stable PVD S/P B/l BKA
[2019-03-23 20:14] LABS: Rheumatoid Factor NEG (NEG)
[2019-03-27 03:41] LABS: HBsAG Nonreactive (Nonreactive)
[2019-03-27 16:54] LABS: Hepatitis C Virus RNA (PCR)log <1.18 log IU/mL
[2019-03-27 17:39] LABS: HIV AG/AB 4TH GEN Non-reactive (Non-reactive)
[2019-03-27 23:03] LABS: Albumin, (SPE) 2.4 g/dL (3.8-4.8); Alpha-1-Globulins 0.3 g/dL (0.2-0.3); Gamma Globulins 0.8 g/dL (0.8-1.7); INTERPRETATION REPORT
[2019-03-28 18:22] LABS: P-ANCA Anti-Myeloperoxidase Ab <1.0 AI (<1.0)
== END 2019-03-23 11:30 | disposition home or self-care (01) | DRG 690 ==
LOC: ER 15:48 → ERHOLD 20:21 → 4TH 21:30 → OBSVTOIN 03-20 14:31
PROVIDERS: ADMIT Internal Medicine; ATTEND Family Medicine
PROC: 0DB78ZX Excision of Stomach, Pylorus, Via Natural or Artificial Opening Endoscopic, Diagnostic (ICD-10-PCS; principal; 2019-03-20 13:15)
DX: N30.00 Acute cystitis without hematuria (principal); N17.9 Acute kidney failure, unspecified; Z68.42 Body mass index [BMI] 45.0-49.9, adult; B96.1 Klebsiella pneumoniae [K. pneumoniae] as the cause of diseases classified elsewhere; E11.22 Type 2 diabetes mellitus with diabetic chronic kidney disease; I12.9 Hypertensive chronic kidney disease with stage 1 through stage 4 chronic kidney disease, or unspecified chronic kidney disease; N18.3 Chronic kidney disease, stage 3 (moderate); K29.70 Gastritis, unspecified, without bleeding; K29.80 Duodenitis without bleeding; E86.0 Dehydration; E11.40 Type 2 diabetes mellitus with diabetic neuropathy, unspecified; K52.9 Noninfective gastroenteritis and colitis, unspecified; E66.01 Morbid (severe) obesity due to excess calories; E78.2 Mixed hyperlipidemia; F32.9 Major depressive disorder, single episode, unspecified; K21.9 Gastro-esophageal reflux disease without esophagitis; Z79.4 Long term (current) use of insulin; Z89.512 Acquired absence of left leg below knee; Z89.511 Acquired absence of right leg below knee; Z88.5 Allergy status to narcotic agent
CPT/HCPCS: 36415; 71045; 74160; 74176; 80048; 80069; 80076; 81003; 81015; 81025; 82570; 82962; 83520; 83690; 83735; 84156; 84165; 85025; 85379; 86021; 86038; 86160; 86225; 86317; 86430; 86704; 86706; 87045; 87046; 87077; 87086; 87088; 87177; 87186; 87209; 87340; 87389; 87493; 87522; 88305; 88312; 97161; 99285; C9113; G0378; J0696; J1644; J1940; J2405; J2550; J2704; J3010; J7030; J7510; Q9967

== ENCOUNTER 2020-05-23 02:12 | Inpatient (IN) | payer BC ==
--- OUTSIDE RECORDS SUMMARY | 2020-05-23 02:15 | XMS REPORT | Continuity of Care Document ---
:1975 Author Organization [facility] t Address [address] [place] [address] Dr. [address] [place] [address] Care Team Providers Name Role Phone Bin PEARSON, S. Primary Care Physician Pob1, Care Clinic Attending Clinician Unavailable Michael PEARSON Attending Clinician Pob, Lab Main Attending Clinician Unavailable Doctor Unassigned, Name Attending Clinician Unavailable Zander Arias Attending Clinician Bin PEARSON, S. Attending Clinician Ewa PEARSON, T Attending Clinician Yunior ALONZO C Attending Clinician Unavailable Carl PEARSON G Attending Clinician Romulo Attending Clinician Unavailable Payers Payer Name Policy Type Policy Number Effective Date Expiration Date Emmett davis BLUE CROSS BLUE [id number] 2018 MD Jovani [place] P[place] 00:00:00 [id number] /10/2017-PresentPP O Problems Condition Condition Condition Status Onset Resolution Last Treating Co mments Source Name Details Category Date Date Treatment Clinician Date Left upper Left upper Disease Active Overview : MD quadrant quadrant 07-05 Added Michael o pain pain 00:00: automatic n 00 ally from request for surgery [id number] Family Family Disease Active Overview: history of history of 07-05 Added An derso malignant malignant 00:00: automatic n neoplasm neoplasm 00 ally from of of request pancreas pancreas for surgery [id number] Diarrhea Diarrhea Disease Active Overview: 07-05 Added Anderso 00:00: automatic n 00 ally from request for surgery [id number] Family Family Disease Active Overview: history of history of 07-05 Added An derso cancer of cancer of 00:00: automatic n colon colon 00 ally from request for surgery [id number] Morbid Morbid Problem Active [facility] ([facility] (severe[facility] obesity obesity Memoria due to due to l excess excess Outpati calories calories ent Clinics Body mass Body mass Problem Active [facility] index index [facility] - (BMI) of (BMI) of Memori a 40.0-44.9 40.0-44.9 l in adult in adult Outpat i ent Clinics Chronic Chronic Problem Active [facility] kidney kidney [facility] - disease, disease, Memori a unspecifie unspecifie l d CKD d CKD Outpati stage stage ent Clinics Hyperlipid Hyperlipid Diagnosis Active [facility] emia, emia, [facility] - unspecifie unspecifie Me moria d d l hyperlipid hyperlipid Ou tpati emia type emia type ent Clinics Type II Type II Problem Active [facility] diabetes diabetes [facility] - mellitus mellitus Memori a with with l nephropath nephropath Ou tpati y y ent Clinics Hypertensi Hypertensi Problem Active [facility] on, on, [facility] - unspecifie unspecifie Me moria d type d type l Outpati ent Clinics Neck pain Neck pain Problem Active [facility] on right on right [facility] - side side Memoria l Outpati ent Clinics Acute pain Acute pain Problem Active [facility] of right of right [facility] - shoulder shoulder Memori a l Outpati ent Clinics Right arm Right arm Problem Active [facility] pain pain [facility] - [facility] l Outpati ent Clinics Abnormal Abnormal Problem Active [facility] urinalysis urinalysis Sara kes - Memoria l Outpati ent Clinics Migraine Migraine Problem Active [facility] ent Clinics Depression Depression Problem Active [facility] , , [facility] - unspecifie unspecifie Me moria d d l depression depression Ou tpati type type ent Clinics Vitamin D Vitamin D Diagnosis Active [facility] deficiency deficiency Sara kes - Memoria [facility] 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 Hx of BKA Hx of BKA Problem Active [facility] - Memoria [facility] Abdominal Abdominal Problem Active [facility] pain, pain, [facility] - unspecifie unspecifie Me moria d d l abdominal abdominal Outp ati location location ent Clinics Fatigue, Fatigue, Problem Active [facility] unspecifie unspecifie Sara kes - d type d type Memoria [facility] Body mass Body mass Diagnosis Active [facility] index index [facility] - (BMI) (BMI) Memoria 45.0-49.9, 45.0-49.9, l adult adult [facility] Depression Depression Problem Active [facility] with with [facility] - anxiety anxiety Memoria [facility] Acute UTI Acute UTI Diagnosis Active [facility] - Memoria [facility] ent [facility] Dietary Dietary Diagnosis Active [facility] surveillan surveillan Sara kes - ce and ce and Memoria counseling counseling [facility] Allergies, Adverse Reactions, Alerts Allergy Allergy Status Severity Reaction(s) Onset Inactive Treating Comm ents Source Name Type Date Date Clinician morphine DA Active [facility] [place] [facility] ketamine DA [facility] [place] [facility] morphine DA Active [facility] 6 [place] [facility] MORPHINE Adverse Active Info Not [facility] Reaction Available [facility] - [facility] ent [facility] Family History Family Member Diagnosis Comments Start Date Stop Date Source Natural brother -Colon cancer And lakhwinder Natural brother -Melanoma MD Michael on Natural brother -Thoracic or Lung MD Vyas Natural brother -Unknown cancer MD Qian garcia Natural father -Pancreatic cancer MD Vyas Paternal grandmother -Breast cancer MD Vyas Social History Social Habit Start Date Stop Date Quantity Comments Source Sex Assigned At F MD Rodriguez on Tobacco use and 2019-07-10 2019-07-10 Never used MD Rodriguez on exposure 00:00:00 00:00:00 Alcohol intake 2019-07-10 2019-07-10 Lifetime MD Ernandez n 00:00:00 00:00:00 non-drinker (finding) Smoking Status Start Date Stop Date Source Never smoker MD Vyas Medications Ordered Filled Start Stop Current Ordering Indication Dosage Frequency Signature Comments Components Source Medication Medication Date Date Medication? Clinician (SIG) Name Name Ben Contreras 2020- Yes Jammie one daily [facility] Starter Starter 03-07-28 [facility] times 7 [facility] - pack pack 00:00: 00:00 days, then Memori a 00 :00 bid, then l 2 am and 1 Outpati pm and ent then 2 bid Clinics Ciprofloxac Ciprofloxac 2019- Yes Jammie [address] [facility] in HCl in HCl 03-07 06-05 [place] [facility] - 00:00: 00:00 Memoria 00 :00 l Outpati ent Clinics Diflucan Diflucan 2019- Yes Jammie as [facility] 03-07 05-31 [place] directed [facility] - 00:00: 00:00 Memoria 00 :00 l Outpati ent Clinics Duloxetine Duloxetine 2018-10 Yes Jammie [address] [facility] HCl HCl 1-20 [place] [facility] - 00:00: Memoria 00 l Outpati ent Clinics BD BD 2018-10- No Jammie as [facility] Ultra-Fine Ultra-Fine 1-20 02-12 [place] directed [facility] - Maria T Pen Maria T Pen 00:00: 00:00 Yuan lawanda [place] 00 :00 l Outpati ent Clinics hydrALAZINE Yes 1{tbl} Take 1 MD (APRESOLINE 6-24 tablet by And erso ) 50 mg 00:00: mouth n tablet 00 daily. lisinopril Yes 20mg Take 20 mg M D (PRINIVIL,Z 6-24 by mouth Jovani rso ESTRIL) 10 00:00: daily. n mg tablet 00 amLODIPine Yes 1{tbl} Take 1 MD (NORVASC) 5-29 tablet by Presley so 10 mg 00:00: mouth n tablet 00 daily. BYSTOLIC 5 Yes 1{tbl} Take 1 MD mg tablet 4-15 tablet by Presley so 00:00: mouth n 00 daily. acetaminoph Yes 2{tbl} Take 2 MD en-codeine 4-01 tablets by And erso (TYLENOL 00:00: mouth as n #3) 300 00 needed. mg-30 mg tablet famotidine Yes 1{tbl} Take 1 MD (PEPCID) 20 4-01 tablet by And erso mg tablet 00:00: mouth as n 00 needed. LEVEMIR 2017-10 Yes 35U Inject 35 MD FLEXTOUCH 2-17 Units Anderso U-100 00:00: under the n INSULN 100 00 skin 3 unit/mL (3 (three) mL) insulin times a pen day. Lancets Lancets Yes Jammie as [facility] 8-24 [place] directed [facility] - 00:00: (dispense Memoria 00 lancets l for karley Outpati contour bs ent monitor) Clinics Blood Blood Yes Jammie as [facility] Glucose Glucose 8-24 [place] directed [facility] - Test Strip Test Strip 00:00: (DISPENSE Memoria 00 BLOOD l GLUCOSE Outpati TEST ent STRIPS FOR Clinics KARLEY CONTOUR BS MONITOR ) insulin Yes 35U Inject 35 MD aspart 7-02 Units Anderso U-100 00:00: under the n (NovoLOG 00 skin twice Flexpen daily. U-100 Insulin) 100 unit/mL (3 mL) insulin pen NovoFine NovoFine Yes Jammie as [facility] Millender directed [facility] - Memoria l Outpati ent Clinics Tresiba Tresiba Yes Jammie [address] FlexTouch FlexTouch [place] [facility] - Memoria l Outpati ent Clinics Fluconazole Fluconazole Yes Jammie [address] [facility] [facility] - Memoria l Outpati ent Clinics Metformin Metformin Yes Jammie [address] [facility] HCl HCl Mill[place] with meals Luke s - Memoria l Outpati ent Clinics Calcium + Calcium + Yes Jammie [address] [facility] D3 D3 [place] with a [facility]ukes - meal Memoria l Outpati ent Clinics Atorvastati Atorvastati Yes Jammie [address] [facility] n Calcium n Calcium Millender [facility] - Memoria l Outpati ent Clinics HydrALAZINE HydrALAZINE Yes Jammie [address] [facility] HCl HCl [place] with food [facility] - Memoria l Outpati ent Clinics Fenofibrate Fenofibrate Yes Jammie [address] [facility] [address] [place] with food [facility] - Memoria l Outpati ent Clinics Vitamin D3 Vitamin D3 Yes Jammie one tab [facility] - Memoria l Outpati ent Clinics Metoprolol Metoprolol Yes Jammie [address] [facility] Succinate Succinate Mill[place] [facility] - ER ER Memoria l Outpati ent Clinics NovoLog NovoLog Yes Jammie as [facility] Flexpen Flexpen [facility] directed [facility] - Memoria l Outpati ent Clinics Victoza Victoza Yes Jammie not [facility] Millender defined [facility] - Memoria l Outpati ent Clinics BuPROPion BuPROPion Yes Jammie [address] [facility] HCl ER HCl ER Millender in the Luke s - (Smoking (Smoking morning Yuan lawanda Det) Det) l Outpati ent Clinics Ciprofloxac Ciprofloxac Yes Jammie [address] [facility] in HCl in HCl Mill[place] [facility] - Memoria l Outpati ent Clinics Bystolic Bystolic Yes Jammie [address] [facility] - Memoria l Outpati ent Clinics Lisinopril Lisinopril Yes Jammie [address] [facility] [place] [facility] - Memoria l Outpati ent Clinics Yes Jammie [address] Vitamins Vitamins [place] in evening [facility] - Memoria l Outpati ent Clinics Biotin Plus Biotin Plus Yes Jammie not [facility] Keratin Keratin Millender defined L ukes - Memoria l Outpati ent Clinics Ketoconazol Ketoconazol Yes Jammie [address] [facility] [facility] e e Millender applicatio Luke s - n to Memoria affected l area Outpati ent Clinics Pravastatin Pravastatin Yes Jammie [address] [facility] [address] Sodium Sodium Mill[place] [facility] - Memoria l Outpati ent Clinics Levemir Levemir Yes Jammie as [facility] FlexTouch FlexTouch [place] directed [facility] - Memoria l Outpati ent Clinics Promethazin Promethazin Yes Jammie [address] [facility] e HCl e HCl Millender as needed Tam es - Memoria l Outpati ent Clinics Amlodipine Amlodipine Yes Jammie [address] [facility] Besylate Besylate Millender Sara kes - Memoria l Outpati ent Clinics Trulicity Trulicity Yes Jammie as [facility] directed [facility] - Memoria l Outpati ent Clinics Iron Iron Yes Jammie [address] [facility] [facility] - [facility]oria l Outpati ent Clinics Ferrous Ferrous Yes Jammie [address] [facility] [facility] Sulfate Sulfate Mill[place] Luke s - Memoria l Outpati ent Clinics Aspirin EC Aspirin EC Yes Jammie [address] [facility] [facility] Millender (otc) [facility] - Memoria l Outpati ent Clinics Amitiza Amitiza Yes Jammie [address] [facility] [place] with food [facility] - Memoria l Outpati ent Clinics Dicyclomine Dicyclomine Yes Jammie [address] [facility] HCl HCl Millender [facility] - Memoria l Outpati ent Clinics Racine 3 Racine 3 Yes Jammie [address] [facility] Millender [facility] Outpati ent Clinics Fish Oil Fish Oil Yes Jammie [address] Millender [facility] Outpati ent Clinics Vital Signs Vital Name Observation Time Observation Value Comments Source Systolic blood pressure 2019-07-10 00:30:00 155 mm[Hg] MD Vyas Diastolic blood pressure 2019-07-10 00:30:00 83 mm[Hg] MD Vyas Heart rate 2019-07-10 00:30:00 72 /min MD Presley bolden Body temperature 2019-07-10 00:30:00 36.39 Heidi MD Qian garcia Respiratory rate 2019-07-10 00:30:00 16 /min MD Qian garcia Oxygen saturation in 2019-07-10 00:30:00 100 /min MD Vyas Arterial blood by Pulse oximetry Body weight 2019-07-09 21:47:00 130.4 kg MD Presley bolden BMI 2019-07-09 21:47:00 45.03 kg/m2 MD Presley bolden Body height 2019-07-05 14:23:43 170.2 cm MD Presley bolden Procedures Procedure Date / Time Performed Performing Clinician [facility] e ENDOSCOPY NOTE RESULTS 2019-07-09 22:45:24 Santo Jhaveri MD UPPER GASTROINTESTINAL 2019-07-09 22:39:00 Santo Jhaveri MD ENDOSCOPY WITH ENDOSCOPIC ULTRASOUND EXAMINATION POC GLUCOSE SCREEN 2019-07-09 22:13:00 Santo Jhaveri MD And erson POC ICON 20 URINE 2019-07-09 21:41:00 Santo Jhaveri MD TEST CANCER ANTIGEN 19-9 2019-07-05 16:59:00 Cleo Schneider MD Jovani rson COMPREHENSIVE METABOLIC PANEL 2019-07-05 16:59:00 Cleo Schneider MD GLUCOSE LEVEL 2019-07-05 16:59:00 Cleo Schneider MD BLOOD UREA NITROGEN 2019-07-05 16:59:00 Cleo Schneider MD Jovani rson ELECTROLYTE PANEL 2019-07-05 16:59:00 Cleo Schneider MD Mihcael on SERUM CREATININE 2019-07-05 16:59:00 Cleo Schneider MD Andyosefo n .GLOMERULAR FILTRATION RATE 2019-07-05 16:59:00 Cleo Schneider MD CALCIUM LEVEL TOTAL 2019-07-05 16:59:00 Cleo Schneider MD Jovani rson ALBUMIN LEVEL 2019-07-05 16:59:00 Cleo Schneider MD ALKALINE PHOSPHATASE 2019-07-05 16:59:00 Cleo Schneider MD And erson ALANINE AMINOTRANSFERASE 2019-07-05 16:59:00 Cleo Schneider MD ASPARTATE AMINOTRANSFERASE 2019-07-05 16:59:00 Cleo Schneider MD TOTAL PROTEIN 2019-07-05 16:59:00 Cleo Schneider MD FRACTIONATED BILIRUBIN 2019-07-05 16:59:00 Cleo Schneider MD nderson OUTSIDE REFERRAL 2019-07-05 00:00:00 System, Provider Not And erson In Encounters Start End Encounter Admission Attending Care Care Encounter Source Date/Time Date/Time Type Type Clinicians Facility Department ID 2020-05-09 2020-05-09 Urgent Pob1, Acute [facility] [id number] 14:21:03 14:41:03 [facility] [id number] [place] [id number] Sebastian [id number] nal [address] 2020-05-01 2020-05-01 Patient Michael, [facility] [id number] 00:00:00 00:00:00 Secure [facility] [id number] [facility] [id number] 2020-04-25 2020-04-25 Marketing Services Vice President Mark Cullen [facility] [id number] 15:11:37 15:26:37 Visit Lab Main Annie [id number] [place] 4.2.7.2.686 Professryne [id number] [address] 2020-04-25 2020-04-25 Orders Doctor RANJAN [id number] 00:00:00 00:00:00 Only Unassigned, ERNIE [id number] [place] [facility] [id number] 2020-04-24 2020-04-24 [facility]phone [facility] [id number] 00:00:00 00:00:00 [facility] [id number] [facility] [id number] 2020-04-23 2020-04-23 Telephone [facility] [id number] 00:00:00 00:00:00 [facility] [id number] [facility] [id number] 2020-04-18 2020-04-18 Patient [facility] [id number] 00:00:00 00:00:00 [facility] [id number] [facility] [id number] 2020-03-07 2020-03-07 [facility] [id number] [facility] 14:40:00 14:40:00 [facility] Medicine Outpati ent Clinics 2019-09-10 2019-09-10 [facility] [id number] [facility] 15:35:00 15:35:00 [facility] Medicine Outpati ent Clinics 2019-08-29 2019-08-29 [facility] [id number] [facility] 11:00:00 11:00:00 t [facility] Medicine Outpati ent Clinics 2019-08-15 2019-08-15 [facility] [id number] 13:40:00 13:40:00 t [facility] Medicine Outpati ent Clinics 2019-02-09 2019-02-09 [facility] [id number] [facility] 10:00:00 10:00:00 t [facility] Medicine Medicine Outpati ent Clinics 2018-10-06 2018-10-06 [facility] [id number] [facility] 13:30:00 13:30:00 t [facility] Medicine Outpati ent Clinics 2018-10-05 2018-10-05 [facility] [id number] [facility] 11:52:00 11:52:00 t [facility] Medicine Outpati ent Clinics 2018-09-20 2018-09-20 [facility] [id number] [facility] 14:45:00 14:45:00 t [facility] Medicine Outpati ent Clinics 2018-07-13 2018-07-13 [facility] [id number] 09:52:00 09:52:00 t [facility] Medicine Outpati ent Clinics 2018-06-06 2018-06-06 [facility] [id number] 10:14:00 10:14:00 t [facility] Medicine Medicine Outpati ent Clinics 2018-06-05 2018-06-05 [facility] [id number] 14:31:00 14:31:00 t [facility] Medicine Outpati ent Clinics 2018-06-02 2018-06-02 [facility] [id number] [address] 21:51:00 21:51:00 t [facility] Medicine Outpati ent Clinics 2018-06-02 2018-06-02 [facility] [id number] 11:00:00 11:00:00 [facility] Results Test Description Test Time Test Comments Results Result Sour e Comments ENDOSCOPY NOTE 2019-07-09 Santo Jhaveri M D Anderson RESULTS 22:45:24 MD - 07/09/2019 5:45 PM CDTPatient Name: Keiry McleanGender: FemaleMRN: [id number]: [id number] Date No Time: 07/09/2019Instrument Name: 1023 [id number],1221 GF-UCTProceduralist (s): Reanna BARRIENTOS Name: Upper EUSScope In: 6:16:21 PMScope Out: 6:34:52 PMTotal Procedure Duration Time 0 hours 18 minutes 31 seconds Indications: Screening for pancreatic neoplasm, Abdominal pain in the left upper quadrant, Family history of pancreatic cancerMedications: General AnesthesiaProcedure Description: Pre-Anesthesia Assessment: - Prior to the procedure, a History and Physical was performed, and patient medications and allergies were reviewed. The patient's tolerance of previous anesthesia was also reviewed. The risks and benefits of the procedure and the sedation options and risks were discussed with the patient. All questions were answered, and informed consent was obtained. Prior Anticoagulants: The patient has taken no previous anticoagulant or antiplatelet agents. ASA Grade Assessment: II - A patient with mild systemic disease. After reviewing the risks and benefits, the patient was deemed in satisfactory condition to undergo the procedure. Informed consent was obtained. Throughout the procedure, the patient's blood pressure, pulse, and oxygen saturations were monitored continuously. The Olympus [id number]-[id number] ([id number]) upper endoscope - (9.9 mm dm) was introduced through the mouth, and advanced to the second part of duodenum. The Olympus [id number] ([id number]) linear echoendoscope - (12.6 mm dm) was introduced through the mouth, and advanced to the second part of duodenum. The upper EUS was accomplished without difficulty. The patient tolerated the procedure well.Findings: Endoscopic Finding : The examined esophagus was endoscopically normal. The entire examined stomach was endoscopically normal. Significant amount of fluid was found in the stomach that was aspirated. The ampulla, duodenal bulb and second portion of the duodenum were normal. EUS exam was done of the entire pancreas. The main PD was not dilated. The ampulla looked normal. No solid or cystic mass was seen anywhere in the pancreas. There were a few echogenic septations in the pancreas. The pancreas was fatty with scattered echogenic areas. NO peripanceratic or perigastric nodes were seen.Complications: No immediate complications.Estim ated Blood Loss: Estimated blood loss: none.Post Procedure Diagnosis: - Normal esophagus. - Normal stomach. - Normal ampulla, duodenal bulb and second portion of the duodenum. - EUS exam was done of the entire pancreas. The main PD was not dilated. The ampulla looked normal. No solid or cystic mass was seen anywhere in the pancreas. There were a few echogenic septations in the pancreas. The pancreas was fatty with scattered echogenic areas. NO peripanceratic or perigastric nodes were seen. - No specimens collected.Recommend ation: - Patient has a contact number available for emergencies. The signs and symptoms of potential delayed complications were discussed with the patient. Return to normal activities tomorrow. Written discharge instructions were provided to the patient. - Resume previous diet today in 1 hour after discharge. - Continue present medications. - Colonoscopy within next few weeks - Will get a gastric emptying scan.Attending Participation: I personally performed the entire procedure.SANTO JHAVERI MD07/09/2019 7:07:00 PMThis report has been signed electronically.Numb er of Addenda: 0 POC Glucose Screen 2019-07-09 22:20:38 Test Item Value Reference Range Interpretation Comme nts POC Glucose (test code = 5651) 173 mg/dL 70-99 H Capillary blood samples, e.g. obtained by [employer], may have inaccurate results in patients with d ecreased peripheral bloo d flow. PO Sample Type (test code = 9554) Venous Lab Interpretation (test code = Abnormal 05268-5) [facility]18 Test Item Value Reference Range Interpretation Comments POC U hCG (test Negative Negative Very dilute urine code = 8552) specimens may c ause false negative result s. Suggest repeat in 48 ho urs with a first morning v oided urine or request shaheen titative serum beta HCG test. POC U hCG Cont Valid (test code = 6710) MD VyasHEPATIC FUNCTION [id number] 17:04:00 Test Item Value Reference Range Interpretation Comments TOTAL PROTEIN (test code = PROT) 6.0 G/DL 6.4-8.2 L ALBUMIN (test code = ALB) 2.2 G/DL 3.4-5.0 L BILIRUBIN TOTAL (test code = 0.20 MG/DL 0.2-1.2 N BILT) BILIRUBIN DIRECT (test code = < 0.10 MG/DL 0.00-0.30 N BILD) BILIRUBIN INDIRECT (test code = 0.10 MG/DL 0.2-1.2 L BILIND) SGOT/AST (test code = AST) 10 Unit/L 15-37 L SGPT/ALT (test code = ALT) 12 Unit/L 12-78 N ALKALINE PHOSPHATASE TOTAL (test 86 Unit/L 45-117 N code = ALKP) Completed by Nursing: [id number] 17:04:00 Test Item Value Reference Range Interpretation Comments TROPONIN-I (test < 0.015 NG/ML 0.000-0.045 N Negative: </= 0.045 code = TROPI) Positive: >/= 0.046 Correlation wit h serial results, other cardiac markers, and cl inical findings is nec essary to determine the c linical significance of this result. Quantit ative results using d ifferent methodologies s hould not be compared to one another as nume rical results may andrew yby method. Completed by Nursing: NOPROTHROMBIN [id number] 17:03:00 Test Item Value Reference Range Interpretation Comments PT PATIENT (test code = PTP) 10.8 SECONDS 9.3-12.9 N INTERNATIONAL NORMAL RATIO 0.94 INR Unit 0.8-1.2 N (test code = INR) THROMBOPLASTIN TIME [id number] 17:03:00 Test Item Value Reference Range Interpretation Comments THROMBOPLASTIN TIME PARTIAL 28.7 SECONDS 26-35 N (test code = PTT) CBC W/O [id number] 16:35:00 Test Item Value Reference Range Interpretation Comments WHITE BLOOD CELL (test code = 9.5 K/mm3 3.5-11.0 N WBC) RED BLOOD CELL (test code = RBC) 3.57 M/mm3 4.70-6.10 L HEMOGLOBIN (test code = HGB) 10.2 G/DL 10.4-14.9 L HEMATOCRIT (test code = HCT) 30.9 % 31.5-44.1 L MEAN CELL VOLUME (test code = 86.6 Fl 84.5-98.6 N MCV) MEAN CELL HGB (test code = MCH) 28.6 pg 27.0-34.2 N MEAN CELL HGB CONCETRATION (test 33.0 G/DL 31.5-34.0 N code = MCHC) RED CELL DISTRIBUTION WIDTH (test 12.6 SD 11.5-14.5 N code = RDW) PLATELET COUNT (test code = PLT) 271.0 K/mm3 150-450 N MEAN PLATELET VOLUME (test code = 10.40 fL 7.0-10.5 N MPV) CHEMISTRY 8 [id number] 16:30:00 Test Item Value Reference Range Interpretation Comments ISTAT-SODIUM (test code = NAP) mmol/L 135-146 ISTAT-POTASSIUM (test code = KP) mmol/L 3.5-4.9 ISTAT-CHLORIDE (test code = CLP) mmol/L 98-109 ISTAT-CARBON DIOXIDE (test code = mmol/L 24-29 L ISTAT-CO2) ISTAT CALCIUM IONIZED (test code = mmol/L 1.12-1.32 ISTAT-PIETRO) ISTAT-GLUCOSE (test code = GLUP) mg/dL 70-105 H ISTAT-BUN (test code = BUNP) mg/dL 8-26 H BEDSIDE CREATININE (test code = mg/dL 0.6-1.3 H CREATBED) GLOMERULAR FILTRATION RATE POC (test 25 58-135 L code = GFRBED) CHEMISTRY 8 [id number] 16:30:00 Test Item Value Reference Range Interpretation Comments ISTAT-SODIUM (test code = NAP) 137 mmol/L 135-146 N ISTAT-POTASSIUM (test code = KP) 5.1 mmol/L 3.5-4.9 H ISTAT-CHLORIDE (test code = CLP) 106 mmol/L 98-109 N ISTAT-CARBON DIOXIDE (test code = 18 mmol/L 24-29 L ISTAT-CO2) ISTAT CALCIUM IONIZED (test code 1.15 mmol/L 1.12-1.32 N = ISTAT-PIETRO) ISTAT-GLUCOSE (test code = GLUP) 315 mg/dL 70-105 H ISTAT-BUN (test code = BUNP) 36 mg/dL 8-26 H BEDSIDE CREATININE (test code = 2.3 mg/dL 0.6-1.3 H CREATBED) GLOMERULAR FILTRATION RATE POC 25 58-135 L (test code = GFRBED) TROPONIN I [id number] 16:28:00 Test Item Value Reference Range Interpretation Comments TROPONIN I RAPID 0.00 ng/mL 0.00-0.08 N - The use o f serial (test code = sampling and te sting TROPIRAP) protocol is a recommended pra ctice- An elevated tro ponin level alone is often not sufficient for diagnosis of my ocardial infarction. GLUCOSE BEDSIDE [id number] 16:12:00 Test Item Value Reference Range Interpretation Comments GLUCOSE BEDSIDE TESTING (test code 283 mg/dL 70-110 H = GLUBED) - CT HEAD/BRAIN W/O [id number] 16:02:00 Name: KEIRY MCLEAN [facility] : 1975 Age/S: 43 / F [address] [place] Unit #: [id number] Loc: [place] [address] Phys: Robyn Moffett MD Acct: [id number] Dis Date: Status: REG ER PHONE #: [phone] Exam Date: 07/07/2019 4669 FAX #: Reason: Code Str raine EXAMS: CPT: [id number] CT HEAD/BRAIN W/O CONT 70231 EXAMINATION: - CT HEAD/BRAIN W/O CONT. LOCATION: C3. HISTORY: Code Stroke, blurry vision, nausea, left-sided weakness. COMPARISON: None. TECHNIQUE: Routine CT of the head was performed without intravenous contrast as per protocol. One or more the following dose reduction techniques were used: Automated exposure control, adjustment of mA and/or kV according to patient size, and use of iterative reconstruction technique. FINDINGS: Brain Parenchyma: No hemorrhage or infarction. No mass effect or midline shift. Extra Axial Spaces: Unremarkable. Ventricular System: Unremarkable. Osseous Structures: Unremarkable. Visualized Paranasal Sinuses: Unremarkable. IMPRESSION: No acute intracranial abnormality nor h emorrhage. Findings discussed with Zuhair, MD at 07/07/2019 4:01 PM. FOR INTERNAL CODING PURPOSES ONLY RESULT CODE: CVRMD at 1602 Reported and signed by: Ryan Guerrier M.D. 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 Total and direct bilirubin must not be measured from s amples containing indo cyanine green. False el evation of total bilirubin can be seen in patient s with IgG concentrations above 28 g/L. Bili Direct (test 0.1 mg/dL <=0.3 Indocyanin e Green (ICG) code = 5094) may cause false ly elevated biliru bin results. Total and direct bilirubin must not be measured from s amples containing indo cyanine green. Bili Indirect (test 0.2 mg/dL 0-0.9 code = 5095) MD VyasGlomerular Filtration [id number] 17:55:50 Test Item Value Reference Range Interpretation Comments eGFR-AA (test code = 43 >=60 mL/min/1.73 L Nor mal eGFR: >= 60 8062) sq. m mL/min/1.73 m2N ote: The eGFR is deangelo culated using the CKD-E PI equation. The e GFR declines with a ge. eGFR <60 mL/min /1.73 m2 is considere d as "decreased". Th is equation should only be used for pat ients 18 and older. According to th e National Kidney Foundation's dney Disease Outcome Quality Initiat shaggy (KDOQI) classif ication and 2012 Kidney Disease Improvi ng Global Outcomes (KDIGO) Clinica l Practice Guidel ine, the stage of CK D should be categ orized based on estima ashish GFR. Stage Desc ription GFR mL/mi n/1.73 m21 Normal or h igh GFR >=902 Mildly decreased GFR 60-893a M ildly to moderately decreased GFR 45-593b Moderat patric to severely decrea sed GFR 30-444 Sirena rely decreased GFR 15-295 Kidney f ailure <15 eGFR-GREYSON (test code = 37 >=60 mL/min/1.73 L No rmal eGFR: >= 60 8063) sq. m mL/min/1.73 m2N ote: The eGFR is deangelo culated using the CKD-E PI equation. The e GFR declines with a ge. eGFR <60 mL/min /1.73 m2 is considere d as "decreased". Th is equation should only be used for pat ients 18 and older. According to th e National Kidney Foundation's dney Disease Outcome Quality Initiat shaggy (KDOQI) classif ication and 2012 Kidney Disease Improvi ng Global Outcomes (KDIGO) Clinica l Practice Guidel ine, the stage of CK D should be categ orized based on estima ashish GFR. Stage Desc ription GFR mL/mi n/1.73 m21 Normal or h igh GFR >=902 Mildly decreased GFR 60-893a M ildly to moderately decreased GFR 45-593b Moderat patric to severely decrea sed GFR 30-444 Sirena rely decreased GFR 15-295 Kidney f ailure <15 Lab Interpretation Abnormal (test code = 67348-7) MD VyasAlkaline [id number] 17:55:49 Test Item Value Reference Range Interpretation Comments Alk Phos (test code = 4768) 88 U/L 35-104 MD VyasAlbumin [id number] 17:55:48 Test Item Value Reference Range Interpretation Comments Albumin Lvl (test code = 4763) 3.4 3.5- 5.2 gm/dL L Lab Interpretation (test code = Abnormal 14351-4) MD VyasAspartate [id number] 17:55:47 Test Item Value Reference Range Interpretation Comments AST (test code = 4731) 9 U/L <=32 MD VyasElectrolyte [id number] 17:55:45 Test Item Value Reference Range Interpretation Comments Sodium Lvl (test code = 7355) 134 136- 145 mEq/L L Potassium Lvl (test code = 6854) 5.2 3.5- 5.1 mEq/L H Chloride (test code = 5279) 104 98- 107 mEq/L CO2 (test code = 5227) 23 22- 29 mEq/L Anion Gap (test code = 9325) 7 4- 14 mEq/L Lab Interpretation (test code = Abnormal 92334-3) MD VyasTotal [id number] 17:55:44 Test Item Value Reference Range Interpretation Comments Total Protein (test code = 7649) 6.7 6.4- 8.3 gm/dL MD Vyas.Serum [id number] 17:55:43 Test Item Value Reference Range Interpretation Comments Creatinine (test code = 5399) 1.70 mg/dL 0.51-0.95 H Lab Interpretation (test code = Abnormal 35555-1) MD VyasCalcium [id number] 17:55:42 Test Item Value Reference Range Interpretation Comments Calcium Lvl (test code = 5258) 8.6 mg/dL 8.4-10.2 MD [id number] 17:55:41 Test Item Value Reference Range Interpretation Comments ALT (test code = 4705) 10 U/L <=33 MD [id number] 17:55:40 Test Item Value Reference Range Interpretation Comments BUN (test code = 5055) 32 mg/dL 6-23 H Lab Interpretation (test code = Abnormal 59372-0) MD VyasGlucose [id number] 17:55:38 Test Item Value Reference Range Interpretation Comments Glucose Level (test code 308 mg/dL 70-99 H Ref erence range is = 5699) valid for fasti ng specimens only. Guidelines established by the [place] Diab[employer] es Association guidelines (Standards of Medical Care in Diabetes 2016. Diabetes Care 2 016; 39: S13-22) are that a fasting gluco se of greater than or equal to 126 mg /dL or a random glu cose greater than or equal to 200 mg /dL with symptoms, that are confirmed b y repeat testing on a different day, meet the criteria fo r diabetes mellit us. Lab Interpretation (test Abnormal code = 44950-2) MD VyasCA [id number] 17:55:37 Test Item Value Reference Range Interpretation Comments CA 19-9 (test code 0.6 U/mL <=35.0 Results g reater than 51238 = 5171) U/mL may not be reliable due to matrix e ffect with extended diluti on as it exceeds the man ufacturer s recommended l imit. Caution should be exercised when interpreting howard ch values and done in con junction with clinical c ontext. MD Vyas
--- OUTSIDE RECORDS SUMMARY | 2020-05-23 02:16 | XMS REPORT | Summary of Care ---
:1975 Author Organization [facility] Address [address] [place] [address] Care Team Providers Name Role Phone Bon Avery Primary Care Provider MD Elijah Unavailable Reason for Visit Reason Comments Assessment Encounter Details Date Type Department Care Team Description 04/23/2020 Telephone [facility] Nephrology- Tyra Rodriguez MD Assessment [place] [phone] [address] Floor [phone] [place] [address] [phone] Allergies Active Allergy Reactions Severity Noted Date Comments Ketamine Hallucinations 02/09/2019 Morphine Hallucinations 12/27/2016 Amlodipine Swelling 04/02/2019 documented as of this encounter (statuses as of 04/24/2020) Medications Medication Sig Dispensed Refills Start Date End Date Status blood sugar diagnostic Monitor BG 6 times a day 180 Strip 12 Active (FREESTYLE LITE STRIPS) stripIndications: Diabetes mellitus type 2 with complications, uncontrolled Insulin Safety 100 Each 0 08/23/2012 Acti ve [place], Disp, (NOVOFINE AUTOCOVER) 30 x 1/3 " NdleIndications: Diabetes mellitus type 2 with complications, uncontrolled Insulin [place], 4 (four) times 1 Box 3 05/18/2013 Active Disposable, (BD daily. ULTRAFINE III MINI PEN) 31 x 3/16 " Ndle insulin aspart RAPID inject 35 Units 0 Active (NOVOLOG) 100 unit/mL under the skin 3 injection (three) times daily before meals. insulin detemir inject 60 Units 0 Active (LEVEMIR) 100 unit/mL under the skin 2 injection (two) times daily. lisinopril 10 mg Take 2 tablets by 0 04/02/2019 Active tablet mouth at bedtime. HYDRALAZINE 50 mg Take 1 tablet by 180 tablet 0 02/05/2020 Active tabletIndications: mouth twice daily Essential hypertension, benign BYSTOLIC 10 mg Take 1 tablet by 90 tablet 0 02/05/2020 Active tabletIndications: mouth once daily Essential hypertension, benign documented as of this encounter (statuses as of 04/24/2020) Active Problems Problem Noted Date 26 weeks gestation of 03/15/2018 Pelvic pain affecting in second trimester, a ntepartum 03/15/2018 headache in second trimester 03/15/2018 Hypertension affecting in second trimester 0 03/15/2018 Uncontrolled type 2 diabetes mellitus with complicatio n, without long-term 12/20/2017 current use of insulin CKD (chronic kidney disease) stage 3, GFR 30-59 ml/min 09/27/2017 Status post bilateral below knee amputation 09/27/2017 Type 2 diabetes mellitus with stage 3 chronic kidney d isease, with 09/27/2017 long-term current use of insulin Morbid obesity with body mass index of 40.0-49.9 12/27 Morbid obesity with body mass index of 50 or higher Troponin I above reference range 12/27/2016 Ischemic chest pain 12/27/2016 Chest pain 12/27/2016 Vitamin D deficiency 2011 Diabetes mellitus type 2 with complications, uncontrol led 12/22/2011 Essential hypertension, benign 12/22/2011 HLD (hyperlipidemia) 12/22/2011 Overview: ICD10 Diagnosis 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 Obesity 12/22/2011 Overview: ICD10 Diagnosis 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 documented as of this encounter Last Filed Vital Signs Not on filedocumented in this encounter Plan of Treatment Date Type Specialty Care Team Description 05/13/2020 Office Visit Nephrology Tyra Rodriguez M D [address], [place] [phone] Health Maintenance Due Date Last Done Comments PNEUMOCOCCAL 0-64 YEARS COMBINED 12/25/1983 SERIES (1 of 1 - PPSV23) EYE EXAM 12/25/1987 DTaP,Tdap,and Td Vaccines (1 - 1988 Tdap) Depression Screening 1989 FOOT EXAM 12/25/1995 PAP SMEAR 1998 URINE MICROALBUMIN 12/21/2012 12/22/2011 HgA1C 06/29/2017 12/27/2016, 12/22/2011 Breast Cancer Screening 2017 (MAMMOGRAM) LDL-C 12/28/2017 12/28/2016, 12/22/2011 CREATININE (SERUM) 2019 12/23/2018, 09/03/2018, 03/15/2018, Additional history exists INFLUENZA VACCINE (#1) 2020 documented as of this encounter Results Not on filedocumented in this encounter Insurance Payer Benefit Plan Subscriber ID Effective Dates Phone Address Type / Group BCBS OF [facility] [id number] 2014-[place]ermann [phone] [address] PPO/POS [place] [id number] [place] [address] documented as of this encounter
--- OUTSIDE RECORDS SUMMARY | 2020-05-23 02:16 | XMS REPORT ---
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 Assessment Chronic kidney disease, unspecified N18.9 Active CKD stage Assessment Abnormal urine odor R82.90 Active Assessment Acute UTI N39.0 Active Assessment Hypertension, unspecified type I10 Active Problem 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 Problem Hypertension I10 Active Problem Hyperlipidemia E78.5 Active Problem Mixed hyperlipidemia E78.2 Active Problem Chronic kidney disease, unspecified N18.9 Active CKD stage Problem Body mass index (BMI) of 40.0-44.9 Z68.41 Active in adult Problem Depressive disorder F32.9 Active Problem Acute pain of right shoulder M25.511 Active Problem Hyperlipidemia, unspecified E78.5 Active hyperlipidemia type Problem Abnormal urine odor R82.90 Active Problem Essential hypertension I10 Activ e Problem Body mass index (BMI) 45.0-49.9, Z68.42 Active adult Problem Morbid obesity E66.01 Active Problem Type 2 diabetes E11.9 Active Assessment 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 Problem Depression with anxiety F41.8 Acti ve Problem Migraine G43.909 Active Assessment Depression, unspecified depression F32.9 Active type Problem Abdominal pain, unspecified R10.9 Active abdominal location Problem 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 Problem Fatigue, unspecified type R53.83 Ac tive Problem Depression, unspecified depression F32.9 Active type Assessment Dietary surveillance and counseling Z71.3 Active Problem 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 Assessment Hyperlipidemia, unspecified E78.5 Active hyperlipidemia type Problem Right arm pain M79.601 Active Assessment Body mass index (BMI) 45.0-49.9, Z68.42 Active adult Problem Vitamin D deficiency E55.9 Active Assessment Morbid obesity E66.01 Active Problem Morbid (severe) obesity due to E66.01 Active excess calories Assessment 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 Problem Neck pain on right side M54.2 Acti ve Assessment Vitamin D deficiency E55.9 Active Problem Hypertension, unspecified type I10 Active Problem 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 Problem Abnormal urinalysis R82.90 Active Medications Medication Code Code Instructions Start End Status Dosage System Date Date Tresiba [facility] 40963930140 200 UNIT/ML Active 60 units FlexTouch Subcutaneous Once daily Contrave [facility] 25938005541 8-90 MG Orally Active 2 ta blets Twice a day Fluconazole ND 97596733828 150 MG Orally x3 Active 1 tablet days Metformin HCl [facility] 08402973074 500 MG Orally Active 1 tablet with Twice a day meals Calcium + D3 [facility] 98604464098 600-200 MG-UNIT Active 1 tablet with Orally Once a a meal day Atorvastatin ND 92218025715 40 MG Orally Active 1 tablet Calcium Once a day HydrALAZINE HCl ND 65100489472 50 MG Orally Two Act shaggy 1 tablet with times a day food Fenofibrate [facility] 57901822609 120 MG Orally Active 1 tablet with Once a day food Vitamin D3 [facility] 67203334244 50,000 PO once a Active one tab week Metoprolol ND 82803480698 25 MG Orally Active 1 ta blet Succinate ER Once a day NovoLog Flexpen ND 48179200479 100 UNIT/ML Active as directed Subcutaneous 20 units three times daily with meals Victoza ND 53284250420 18 MG/3ML Active not define d Subcutaneous BuPROPion HCl ND 81006500872 150 MG Orally Active 1 tablet in ER (Smoking Once a day the morni ng Det) Ciprofloxacin ND 96494078876 250 MG Orally Active 1 tablet HCl every 12 hrs Ciprofloxacin [facility] 92576428822 500 MG Orally March 07March Active 1 tablet HCl Every 12 hrs 2019 Contrave [facility] [address]-66 8-90 Orally as March 07March Active on e daily Starter pack directed 2019, times 7 da 2019 then bid, then 2 am and 1 pm and then 2 bid BD Ultra-Fine ND 0 4mm x 32g Aug 29Nov Active as direc ashish Maria T Pen subcutaneous use 2019 09, [place] as directed with 2020 current insulin pens (Levemir FlexTouch & Novolog FlexTouch) five times daily Bystolic ND 82971192982 10 MG Orally Active 1 tabl et Once a day Lisinopril ND 48481969849 20 MG Orally Active 1 ta blet Once a day Lancets [facility] 74883374087 - as directed Jun 02, Active as dir ected Test BS three 2017 (dispense times daily lancets for karley contour bs monitor) ND 73801596001 28-0.8 MG Orally Active 1 tablet in Vitamins Once daily evening Biotin Plus ND 51490727144 22017-846 MCG-MG Active not defined Keratin Orally once a day Diflucan ND 09553902303 150 MG Orally March 07February Active as directed tablet now; then 2019, repeat after 2019 completing abx. Ketoconazole [facility] 91728347860 2 % Externally Active 1 application Once a day to affected area Pravastatin ND 47036569556 20 MG Orally Active 1 t ablet Sodium Once a day NovoFine [facility] 23123025890 32G X 6 MM Active as direc ashish subcutaneous Use as directed with Levemir FlexTouch & Novolog FlexPen five times daily Levemir ND 51196701655 100 UNIT/ML Active as direc ashish FlexTouch Subcutaneous 60 units twice daily Promethazine [facility] 74796806579 25 MG Orally Active 1 tablet as HCl every 12 hrs needed Blood Glucose NDC 0 as directed Jun 02, Active as di rected Test Strip Test BS three 2017 (DISPEN SE times daily BLOOD GLUCOS E TEST STRIPS FOR KARLEY CONTOUR BS MONITOR ) Duloxetine HCl [facility] 97671399870 30 MG Orally Aug 29, Active 1 capsule Once a day for 2019 depression/anxie ty Amlodipine ND 12605424786 10 MG Orally Active 1 ta blet Besylate Once a day Trulicity [facility] 92655210299 0.75mg/0.5ml Active as di rected subcutaneously 0.75 mg once a week Iron [facility] 71135145972 325 (65 Fe) MG Active 1 tab let Orally Once a day Ferrous Sulfate ND 81717294138 325 (65 Fe) MG Activ e 1 tablet Orally Once daily Aspirin EC ND 98912421949 81 MG Orally Active 1 ta blet Once daily (otc) Amitiza [facility] 16819960896 24 MCG Orally Active 1 caps ule Twice a day with food Dicyclomine HCl [facility] 96656286717 20 MG Orally Active 1 tablet Four times a day as needed [place] 3 [facility] 62561094332 1000 MG Orally Active 1 cap jayshree Once a day Fish Oil [facility] 70891821915 1000 MG Orally Active 1 ca psule Twice a day Results No Known Results Summary Purpose [employer] Submission
--- OUTSIDE RECORDS SUMMARY | 2020-05-23 02:16 | XMS REPORT | Summary of Care ---
:1975 Author Organization [facility] Address [address] [place] [address] Care Team Providers Name Role Phone Bon Avery Primary Care Provider MD Elijah Unavailable Encounter Details Date Type Department Care Team Description 04/25/2020 Orders Only [facility] Doctor Unassigned, No [address] [facility] [place] [address] [address] [place] [address] Allergies Active Allergy Reactions Severity Noted Date Comments Ketamine Hallucinations 02/09/2019 Morphine Hallucinations 12/27/2016 Amlodipine Swelling 04/02/2019 documented as of this encounter (statuses as of 04/25/2020) Medications Medication Sig Dispensed Refills Start Date End Date Status blood sugar diagnostic Monitor BG 6 times a day 180 Strip 12 Active (FREESTYLE LITE STRIPS) stripIndications: Diabetes mellitus type 2 with complications, uncontrolled Insulin Safety 100 Each 0 08/23/2012 Acti ve [place], Disp, (NOVOFINE AUTOCOVER) 30 x 1/3 " NdleIndications: Diabetes mellitus type 2 with complications, uncontrolled Insulin [place], 4 (four) times 1 Box 3 05/18/2013 [...] as of this encounter (statuses as of 04/25/2020) Active Problems Problem Noted Date 26 weeks [...] HLD (hyperlipidemia) 12/22/2011 Overview: ICD10 Diagnosis Term [employer] Utility Obesity 12/22/2011 Overview: ICD10 Diagnosis Term [employer] PCOS (polycystic ovarian syndrome) 12/22/2011 S/P BKA (below knee amputation) 12/22/2011 Neuropathy 12/22/2011 Diabetic foot ulcer 12/22/2011 documented as of this encounter (statuses as of 04/25/2020) Social History Tobacco Use Types Packs/Day Years [...] Nephrology Tyra Rodriguez M D [address] [place], [place] [phone] Health Maintenance Due Date [...] (#1) 2020 documented as of this encounter Procedures Procedure Name Priority Date/Time Associated Diagnosis Comme nts ASSIGNMENT OF BENEFITS Routine 04/25/2020 3:09 PM CDT documented in this encounter Results Not on filedocumented in this encounter Insurance Payer Benefit Plan Subscriber ID Effective Dates Phone Address Type / Group BCBS OF [facility] [id number] 2014-[place] [phone] [address] PPO/POS [place] nt [id number] [place] [address] documented as of this encounter
--- OUTSIDE RECORDS SUMMARY | 2020-05-23 02:16 | XMS REPORT | Summary of Care ---
:1975 Author Organization [facility] Address [address] [place] [address] Care Team Providers Name Role Phone Bon Avery Primary Care Provider MD Elijah Unavailable Reason for Visit Reason Comments Assessment Encounter Details Date Type Department Care Team Description 04/24/2020 Telephone [facility] Nephrology- Tyra Rodriguez MD Assessment [place] [phone] Floor [phone] [place] [address] [phone] Allergies Active Allergy Reactions Severity Noted Date [...] Safety 100 Each 0 08/23/2012 Acti ve [place], Disp, (NOVOFINE AUTOCOVER) 30 x 1/3 " NdleIndications: Diabetes mellitus type 2 with complications, uncontrolled Insulin [place], 4 (four) times 1 Box 3 05/18/2013 Active Disposable, (BD daily. 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 PCOS (polycystic ovarian syndrome) 12/22/2011 S/P [...] Treatment Date Type Specialty Care Team Description 04/25/2020 Gm Visit Phlebotomy Pob, Adc Lab Main 05/13/2020 Office Visit Nephrology Tyra Rodriguez M D [address] [place] [address] [phone] Name Type Priority Associated Diagnoses Order S chedule BASIC METABOLIC PANEL LAB Routine CKD (chronic kidney 1 Occurrences starting (NA, K, CL, CO2, GLUCOSE, disease) stage 3, GFR 04/24/2020 until BUN, CREATININE, CA) 30-59 ml/min 020 MICROALBUMIN URINE LAB Routine CKD (chronic kidney 1 Occurrences starting disease) stage 3, GFR 2019 until 30-59 ml/min 07/25/2020 PROTEIN CREAT RATIO URINE LAB Routine CKD (chronic ki dney 1 Occurrences starting RANDOM disease) stage 3, GFR 2019 until 30-59 ml/min 10/25/2020 URINALYSIS LAB Routine CKD (chronic kidney 1 Occurr ences starting disease) stage 3, GFR 2019 until 30-59 ml/min 07/25/2020 Health Maintenance Due Date Last Done Comments [...] Results Not on filedocumented in this encounter Visit Diagnoses Diagnosis CKD (chronic kidney disease) stage 3, GF R 30-59 ml/min - Primary Chronic kidney disease, Stage III (moder ate) documented in this encounter Insurance Payer Benefit Plan Subscriber ID Effective Dates Phone Address Type / Group BC[facility] OF [facility] [id number] 2014-Hermann [phone] [address] PPO/POS [place] nt [address] [id number] [place] [address] documented as of this encounter
--- OUTSIDE RECORDS SUMMARY | 2020-05-23 02:16 | XMS REPORT | Summary of Care ---
:1975 Author Organization [facility] Address [address] [place] [address] Care Team Providers Name Role Phone Bon Avery Primary Care Provider MD Elijah Unavailable Reason for Visit Reason Comments Assessment Encounter Details Date Type Department Care Team Description 04/23/2020 Telephone [facility] Nephrology- Tyra Rodriguez MD Assessment [place] [phone] Floor [phone] [place] [address] [phone] Allergies Active Allergy Reactions Severity Noted Date [...] Safety 100 Each 0 08/23/2012 Acti ve [place], Disp, (NOVOFINE AUTOCOVER) 30 x 1/3 " NdleIndications: Diabetes mellitus type 2 with complications, uncontrolled Insulin [place], 4 (four) times 1 Box 3 05/18/2013 [...] HLD (hyperlipidemia) 12/22/2011 Overview: ICD10 Diagnosis 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
--- OUTSIDE RECORDS SUMMARY | 2020-05-23 02:16 | XMS REPORT | Summary of Care ---
:1975 Author Organization [facility] Address [address] [place] [address] Care Team Providers Name Role Phone Bon Avery Primary Care Provider MD Elijah Unavailable Encounter Details Date Type Department Care Team Description 04/18/2020 Patient Secure [facility] Nephrology- Tyra Perez MD [address], [address] [place] [address] Floor [phone] [place] [address] [phone] Allergies Active Allergy Reactions Severity Noted Date [...] Safety 100 Each 0 08/23/2012 Acti ve [place], Disp, (NOVOFINE AUTOCOVER) 30 x 1/3 " NdleIndications: Diabetes mellitus type 2 with complications, uncontrolled Insulin [place], 4 (four) times 1 Box 3 05/18/2013 [...] HLD (hyperlipidemia) 12/22/2011 Overview: ICD10 Diagnosis 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
--- OUTSIDE RECORDS SUMMARY | 2020-05-23 02:17 | XMS REPORT | Summary of Care ---
:1975 Author Organization [facility] Address [address] [place] [address] Care Team Providers Name Role Phone Bon Avery Primary Care Provider MD Elijah Unavailable Reason for Visit Reason Comments LAB WORK Auth/Cert Status Reason Specialty Diagnoses / Procedures Referred By Frederick rodríguez Referred To Contact Phlebotomy Diagnoses CKD (chronic kidney disease) stage 3, GFR 30-59 ml/min Adc Pob Lab Draw Procedures [facility] [address] , [address] [place] [address] Phone: Fax: Encounter Details Date Type Department Care Team Description 04/25/2020 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 Visit [facility] Tyra Rodriguez MD [address] [place] [address] CKD (chronic kidney [facility] Pob, Adc Lab Main disease) stage 3, GFR Building Phlebotomy 30-59 ml /min Lab [facility] [address] , [address] [place] [address] Allergies Active Allergy Reactions Severity Noted Date [...] Safety 100 Each 0 08/23/2012 Acti ve [place], Disp, (NOVOFINE AUTOCOVER) 30 x 1/3 " NdleIndications: Diabetes mellitus type 2 with complications, uncontrolled Insulin [place], 4 (four) times 1 Box 3 05/18/2013 [...] HLD (hyperlipidemia) 12/22/2011 Overview: ICD10 Diagnosis 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 COVID-19 Exposure Response Date Recorded In the last month, have you been in contact with No / Unsure 04/25/2020 3:11 PM CDT someone who was confirmed or suspected to have Coronavirus / COVID-19? documented as of this encounter Last Filed Vital Signs Not on filedocumented in this encounter Plan of Treatment Date Type Specialty Care Team Description 05/13/2020 Office Visit Nephrology Tyra Rodriguez M D [address] [place] [address] [phone] Name Type Priority Associated Diagnoses Date/Ti me BASIC METABOLIC PANEL (NA, LAB Routine CKD (chronic k idney 04/25/2020 3:25 PM K, CL, CO2, GLUCOSE, BUN, disease) stage 3, GFR CDT CREATININE, CA) 30-59 ml/min MICROALBUMIN URINE LAB Routine CKD (chronic kidney 3:25 PM disease) stage 3, GFR CDT 30-59 ml/min PROTEIN CREAT RATIO URINE LAB Routine CKD (chronic ki dney 04/25/2020 3:25 PM RANDOM disease) stage 3, GFR CDT 30-59 ml/min URINALYSIS LAB Routine CKD (chronic kidney 04/25/20 20 3:25 PM disease) stage 3, GFR CDT 30-59 ml/min Health Maintenance Due Date Last Done Comments [...] disease) stage 3, GF R 30-59 ml/min Chronic kidney disease, Stage III (moder ate) documented in this encounter Insurance Payer Benefit Plan Subscriber ID Effective Dates Phone Address Type / Group [id number] 2014-[place] [phone] [address] PPO/POS [facility] 7 [id number] [place] [address] [phone] [id number] (Work) documented as of this encounter
--- OUTSIDE RECORDS SUMMARY | 2020-05-23 02:17 | XMS REPORT | Summary of Care ---
:1975 Author Organization [facility] Address [address] [place] [address] Care Team Providers Name Role Phone Bon Avery Primary Care Provider MD Elijah Unavailable Reason for Visit Reason Comments Body Aches Headache Fever tmax 100.6, Tylenol @ 1100 Nausea Diarrhea x 05/08/2020 Sore Throat Encounter Details Date Type Department Care Team Description 05/09/2020 Urgent Care [facility] Family Shakira Cortez, DAVID [address] [place] [address] [address] Acute URI (Primary Dx); [facility] Sore throat; [address] [place] [address] Diarrhea, unspecified type; [place] [address] Allergies Active Allergy Reactions Severity Noted Date Comments Ciprofloxacin Itching, Rash High 02/10/2009 That within t aking a large dosage. Ketamine Hallucinations 02/09/2019 Morphine Hallucinations 12/27/2016 Amlodipine Swelling 04/02/2019 documented as of this encounter (statuses as of 05/09/2020) Medications Medication Sig Dispensed Refills Start Date End Date Status blood sugar diagnostic Monitor BG 6 times a day 180 Strip 12 Active (FREESTYLE LITE STRIPS) stripIndications: Diabetes mellitus type 2 with complications, uncontrolled Insulin Safety 100 Each 0 08/23/2012 Acti ve [place], Disp, (NOVOFINE AUTOCOVER) 30 x 1/3 " NdleIndications: Diabetes mellitus type 2 with complications, uncontrolled Insulin [place], 4 (four) times 1 Box 3 05/18/2013 [...] tabletIndications: mouth once daily Essential hypertension, benign lisinopril 20 mg Take 20 mg by 0 Active tablet mouth daily. dulaglutide inject under the 0 Active (TRULICITY) 0.75 skin. mg/0.5 mL PnIj insulin degludec inject under the 0 Active (TRESIBA FLEXTOUCH skin. U-100 SC) BIOTIN-KERATIN ORAL Take by mouth. 0 Active iron,carb/vit C/vit Take by mouth. 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 documented as of this encounter Last Filed Vital Signs Vital Sign Reading Time Taken Comments Blood Pressure 168/79 05/09/2020 2:32 PM CDT Pulse 81 05/09/2020 2:27 PM CDT Temperature 37.2 C (98.9 F) 05/09/2020 2:27 PM CDT Respiratory Rate 20 05/09/2020 2:27 PM CDT Oxygen Saturation 98% 05/09/2020 2:27 PM CDT Inhaled Oxygen Concentration - - Weight 129.7 kg (286 lb) 05/09/2020 2:27 PM CDT Height 170.2 cm (5' 7") 05/09/2020 2:27 PM CDT Body Mass Index 44.79 05/09/2020 2:27 PM CDT documented in this encounter Progress Notes Raina Cherry PA - 05/09/2020 2:20 PM CDT Cc: Chief Complaint Patient presents with Body Aches Headache Fever tmax 100.6, Tylenol @ 1100 Nausea Diarrhea x 05/08/2020 Sore Throat Ingris Mclean is a 44 year old female. Patient presents with URI symptoms that began yesterday. Travel: no. COVID19 exposure? no. Sick Contacts? Yes- daughter and . Both tested neg covid. 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 Feels bettertoday. Here today for covid testing so she can return to work. URI Presenting symptoms: congestion, ear pain, fatigue, fever (tmax: 100.6) and sore throat Presenting symptoms: no cough, no facial pain and no rhinorrhea Duration: 1 day Timing: Intermittent Progression: Improving Chronicity: New Worsened by: Nothing Ineffective treatments: benadryl. Associated symptoms: sinus pain (frontal) and sneezing Associated symptoms: no arthralgias, no headaches, no myalgias, no neck pain, no swollen glands and no wheezing Risk factors: chronic cardiac disease, chronic kidney disease, diabetes mellitus and sick contacts Risk factors: not elderly, no chronic respiratory disease, no immunosuppression, no recent illness and no recent travel Allergies Ingris is allergic to ciprofloxacin; ketamine; morphine; and norvasc [amlodipine]. Medications Outpatient Medications Prior to Visit Medication Sig Dispense Refill BIOTIN-KERATIN ORAL Take by mouth. dulaglutide (TRULICITY) 0.75 mg/0.5 mL PnIj inject under the skin. insulin degludec (TRESIBA FLEXTOUCH U-100 SC) inject under the skin. iron,carb/vit C/vit B12/folic (IRON 100 PLUS ORAL) Take by mouth. lisinopril 20 mg tablet Take 20 mg by mouth daily. BYSTOLIC 10 mg tablet Take 1 tablet by mouth once daily 90 tablet 0 HYDRALAZINE 50 mg tablet Take 1 tablet by mouth twice daily 180 tablet 0 insulin aspart RAPID (NOVOLOG) 100 unit/mL injection inject 35 Units under the skin 3 (three) times daily before meals. lisinopril 10 mg tablet Take 2 tablets by mouth at bedtime. insulin detemir (LEVEMIR) 100 unit/mL injection inject 60 Units under the skin 2 (two) times daily. Insulin [place], Disposable, (BD ULTRAFINE III MINI PEN) 31 x 3/16 " Ndle 4 (four) times daily. 1 Box 3 Insulin Safety [place], Disp, (NOVOFINE AUTOCOVER) 30 x 1/3 " Ndle 100 Each 0 blood sugar diagnostic (FREESTYLE LITE STRIPS) strip Monitor BG 6 times a day 180 Strip 12 No facility-administered medications prior to visit. Histories Past Medical History: Diagnosis Date Diabetes IDDM Hypertension Past Surgical History: Procedure Laterality Date BELOW THE KNEE AMPUTATION bilateral 2/2 trauma Social History Socioeconomic History Marital status: Spouse name: Not on file Number of children: Not on file Years of education: Not on file Highest education level: Not on file Occupational History Not on file Social Needs Financial resource strain: Not on file Food insecurity: Worry: Not on file Inability: Not on file Transportation needs: Medical: Not on file Non-medical: Not on file Tobacco Use Smoking status: Never Smoker Smokeless tobacco: Never Used Substance and Sexual Activity Alcohol use: No Alcohol/week: 0.0 standard drinks Drug use: No Sexual activity: Not on file Lifestyle Physical activity: Days per week: Not on file Minutes per session: Not on file Stress: Not on file Relationships Social connections: Talks on phone: Not on file Gets together: Not on file Attends yazidi service: Not on file Active member of club or organization: Not on file Attends meetings of clubs or organizations: Not on file Relationship status: Not on file Intimate partner violence: Fear of current or ex partner: Not on file Emotionally abused: Not on file Physically abused: Not on file Forced sexual activity: Not on file Other Topics Concern Not on file Social History Narrative Not on file Family History Problem Relation Age of Onset Coronary Heart Disease Mother 3v CABG at 45 Diabetes Mother Hypertension Paternal Uncle Cancer Father Pancreatic Cancer Brother Colon Cancer Brother Lung Cancer Brother Unknown Review of Systems Constitutional: Positive for fatigue and fever (tmax: 100.6). Negative for activity change, appetitechange, chills and diaphoresis. HENT: Positive for congestion, ear pain, sinus pain (frontal), sneezing and sore throat. Negative for ear discharge, facial swelling, hearing loss, postnasal drip, rhinorrhea, sinus pressure, tinnitus,trouble swallowing and voice change. Eyes: Negative for pain, discharge, redness and itching. Respiratory: Negative for cough, chest tightness, shortness of breath and wheezing. Cardiovascular: Negative for chest pain, palpitations and leg swelling. Gastrointestinal: Positive for diarrhea (couple of episodes. not black or bloody), nausea and vomiting (yesterday, none today). Negative for abdominal pain, anal bleeding, blood in stool and constipation. Musculoskeletal: Negative for arthralgias, back pain, gait problem, joint swelling, myalgias, neck pain and neck stiffness. Skin: Negative for color change and rash. Neurological: Negative for dizziness, syncope, weakness, light-headedness and headaches. Psychiatric/Behavioral: Negative for confusion. Vital Signs BP (!) 168/79 | Pulse 81 | Temp 37.2 C (98.9 F) (Oral) | Resp 20 | Ht 5' 7" (1.702 m) | Wt 286 lb (129.7 kg) | LMP 04/25/2020 | SpO2 98% | BMI 44.79 kg/m Vitals: 05/09/20 1427 05/09/20 1432 BP: (!) 175/91 (!) 168/79 Pulse: 81 Resp: 20 Temp: 37.2 C (98.9 F) TempSrc: Oral SpO2: 98% Weight: 286 lb (129.7 kg) Height: 5' 7" (1.702 m) Physical Exam Constitutional: She is oriented to person, place, and time. She appears well- developed and well-nourished. No distress. HENT: Head: Normocephalic and atraumatic. Right Ear: Hearing, tympanic membrane, external ear and ear canal normal. Left Ear: Hearing, tympanic membrane, external ear and ear canal normal. Nose: Nose normal. Mouth/Throat: Uvula is midline, oropharynx is clear and moist and mucous membranes are normal. No oropharyngeal exudate. Eyes: Conjunctivae are normal. Right eye exhibits no discharge. Left eye exhibits no discharge. Neck: Normal range of motion. Cardiovascular: Normal rate, regular rhythm and normal heart sounds. Pulmonary/Chest: Effort normal and breath sounds normal. No stridor. No respiratory distress. She has no wheezes. She has no rales. Abdominal: Soft. Bowel sounds are normal. She exhibits no distension. There is no tenderness. Musculoskeletal: Normal range of motion. She exhibits no edema. Neurological: She is alert and oriented to person, place, and time. Skin: Skin is warm and dry. No rash noted. She is not diaphoretic. Psychiatric: She has a normal mood and affect. Her behavior is normal. Nursing note and vitals reviewed. Assessment/Plan Acute URI (primary encounter diagnosis) Sore throat Plan: COVID-19 (PCR MOLECULAR TESTING), COVID-19 (PCR MOLECULAR TESTING), POCT GRP A STREP (MOLECULAR) Results for INGRIS MCLEAN ( ) as of 05/09/2020 16:13 Ref. Range 05/09/2020 14:33 POCT GP A STREP Latest Ref Range: Negative - Negative neg Improving. Afebrile, well appearing, non-toxic, NAD. HR < 100, lungs CTAB, O2 sat 98%. Strep negative. COVID-19 test ordered. Educated on the following at home care: -Take otc claritin w/o D as needed -Increase water intake -Take over the counter vitamin C/multivitamin with vitamin C -Take Tylenol as needed, avoid nsaids -REST -Wash hands often -Cover mouth when coughing -Wear mask with in the same room/car as others -Gargle with warm salt water as needed -Drink warm liquids as needed. -Throat lozenges as needed -Quarantine until your COVID results are back -Stay in your own bedroom and use a separate bathroom -Keep at least 6 feet from you and others -Avoid sharing personal household items, dishes, glasses, cups, towels -Clean high traffic/touch areas daily. These include but not limited to: doorknobs, refrigerator/cabinet handles, phones, keyboards, tablets, light switches. -Monitor your symptoms. Take your temperature 2 times daily. -Follow-up with PCP as needed, if no improvement. -Monitor your symptoms. Go to the ED if worsening symptoms: chest pain, difficulty breathing, coughing up blood, weakness, dizziness, passing out, AMS. -CDC handout provided Diarrhea, unspecified type Plan: COVID-19 (PCR MOLECULAR TESTING), COVID-19 (PCR MOLECULAR TESTING) Afebrile, well appearing, NAD. HR < 100. No abdominal pain. Nontender abdominal exam. COVID-19 ordered Educated on the following at home care: -Increase po hydration-frequent clear liquids. -BRAT diet- bananas, rice, apples, toast. -[place] foods. -Avoid dairy. -Avoid sugary drinks. Avoid sodas. -Avoid rich/spicy foods. -Rest -Wash hands frequently- good hand hygiene. -Avoid anti-diarrhea medications -Avoid NSAIDS, take Tylenol as needed -Take over the counter vitamin C -Quarantine until further notice -Stay in your own bedroom and use a separate bathroom -Keep at least 6 feet from you and others -Avoid sharing personal household items, dishes, glasses, cups, towels -Clean high traffic/touch areas daily. These include but not limited to: doorknobs, refrigerator/cabinet handles, phones, keyboards, tablets, light switches. -Monitor your symptoms. Take your temperature 2 times daily. -Follow-up with PCP as needed, if no improvement. ER--> worsening condition; severe pain, dizziness, syncope, confusion, weakness, hemoptysis, bloody /black stools, hematemesis, coffee ground emesis, chest pain, difficulty breathing Essential hypertension Plan: BP elevated today. Managed by cardio and renal. Has appointment scheduled with renal next week. No cp, sob, dizziness, syncope. Encouraged to monitor BP at home and follow-up with renal as planned. Patient agrees Watch blood pressure: check 2-3 times daily and log. Look for high numbers >= 130/80. Low salt Low caffeine diet Low alcohol Avoid tobacco products. Avoid decongestants Heart Healthy Exercise: total of 150 minutes of cardio: walking,swimming, hiking, biking every week. Heart healthy diet: low fat/carb/sugar diet; increase lean meat-chicken, turkey, fish; increase vegetables/fruits ( still be careful because elevated sugar level) Er--> chest pain, dizziness, passing out, fluttering of heart, shortness of breath. Pt ed/precautions given in detail regarding conditions/medicaitons. Er precautions given. Pt reportsunderstanding and agrees. rtc if s/s worsen or do not improve ; Plan of care, desired health behaviors, goals, Ddx, & any prescribed or OTC medications discussed with patient. Education resources & self management tools provided and reviewed with AVS. Patient/guardian/family verbalized understanding & agrees to plan of care. Barriers to care: NONE Ability to manage care: Good This visit did not involve counseling and coordination that comprised more than 50% of the visit time. Elizabeth Booth RN - 05/09/2020 2:20 PM CDTPatient educated on plan of care for visit, swabbing technique, risks and benefits of test and length of time to receive results. Verbal consent obtained to perform test. CDC Fact Sheet for Patients nCoV Diagnostic Panel dated 12/23/2019 provided. documented in this encounter Plan of Treatment Date Type Specialty Care Team Description 05/13/2020 Telemedicine Visit Nephrology Tyra Rodriguez MD [address] [place], [place] [phone] Name Type Priority Associated Diagnoses Date/Ti me COVID-19 (PCR MOLECULAR LAB Routine Acute UR I 05/09/2020 2:24 PM CDT TESTING) Sore throat Diarrhea, unspecified type Name Type Priority Associated Diagnoses Order S chedule COVID-19 (PCR MOLECULAR LAB Routine Acute UR I Expected: 05/09/2020, TESTING) Sore throat Expires: 05/09/2021 Diarrhea, unspecified type Health Maintenance Due Date Last Done Comments PNEUMOCOCCAL 0-64 YEARS COMBINED 12/25/1983 SERIES (1 of 1 - PPSV23) EYE EXAM 12/25/1987 DTaP,Tdap,and Td Vaccines (1 - 1988 Tdap) Depression Screening 1989 FOOT EXAM 12/25/1995 PAP SMEAR 1998 HgA1C 06/29/2017 12/27/2016, 12/22/2011 Breast Cancer Screening 2017 (MAMMOGRAM) LDL-C 12/28/2017 12/28/2016, 12/22/2011 INFLUENZA VACCINE (#1) 2020 CREATININE (SERUM) 04/25/2021 04/25/2020, 12/23/2018, 09/03/2018, Additional history exists URINE MICROALBUMIN 04/25/2021 04/25/2020, 12/22/2011 documented as of this encounter Procedures Procedure Name Priority Date/Time Associated Diagnosis Comme nts POCT GRP A STREP Routine 05/09/2020 2:33 PM Sore throat Results for this (MOLECULAR) CDT Acute URI procedure are i n the results section. documented in this encounter Results POCT GRP A STREP (MOLECULAR) (05/09/2020 2:33 PM CDT) Pathologist Sig nature POCT GP A STREP neg Negative - Negative Specimen Swab - THROAT Narrative Performed At accurate development and interpretation of all interna l controls documented in this encounter Visit Diagnoses Diagnosis Acute URI - Primary Acute upper respiratory infections of un specified site Sore throat Acute pharyngitis Diarrhea, unspecified type Essential hypertension Unspecified essential hypertension documented in this encounter Additional Health Concerns Infection Onset Date Last Indicated Resolved Time COVID-19 Rule Out 05/09/2020 05/09/2020 documented as of this encounter Insurance Payer Benefit Plan Subscriber ID Effective Dates Phone Address Type / Group [facility] [id number] 2014-Pres [phone] [address] PPO/POS [facility] [id number] [place] [address] [phone] (Work) documented as of this encounter
--- OUTSIDE RECORDS SUMMARY | 2020-05-23 02:17 | XMS REPORT | Summary of Care ---
:1975 Author Organization [facility] Address [address] [place] [address] Care Team Providers Name Role Phone Bon Avery Primary Care Provider MD Elijah Unavailable Encounter Details Date Type Department Care Team Description 05/01/2020 Patient Secure [facility] Nephrology- Tyra Perez MD [address], [address] [place] [address] Floor [phone] [place] [address] [phone] Allergies Active Allergy Reactions Severity Noted Date Comments Ketamine Hallucinations 02/09/2019 Morphine Hallucinations 12/27/2016 Amlodipine Swelling 04/02/2019 documented as of this encounter (statuses as of 05/02/2020) Medications Medication Sig Dispensed Refills Start Date End Date Status blood sugar diagnostic Monitor BG 6 times a day 180 Strip 12 Active (FREESTYLE LITE STRIPS) stripIndications: Diabetes mellitus type 2 with complications, uncontrolled Insulin Safety 100 Each 0 08/23/2012 Acti ve [place], Disp, (NOVOFINE AUTOCOVER) 30 x 1/3 " NdleIndications: Diabetes mellitus type 2 with complications, uncontrolled Insulin [place], 4 (four) times 1 Box 3 05/18/2013 [...] as of this encounter (statuses as of 05/02/2020) Active Problems Problem Noted Date 26 weeks [...] HLD (hyperlipidemia) 12/22/2011 Overview: ICD10 Diagnosis 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 Obesity 12/22/2011 Overview: ICD10 Diagnosis 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 PCOS (polycystic ovarian syndrome) 12/22/2011 S/P BKA (below knee amputation) 12/22/2011 Neuropathy 12/22/2011 Diabetic foot ulcer 12/22/2011 documented as of this encounter (statuses as of 05/02/2020) Social History Tobacco Use Types Packs/Day Years [...] Nephrology Tyra Rodriguez M D [address] [place], [place] [phone] Health Maintenance Due Date [...] 04/25/2020, 12/22/2011 documented as of this encounter Results Not on filedocumented in this encounter Insurance Payer Benefit Plan Subscriber ID Effective Dates Phone Address Type / Group [employer] [facility] [id number] 2014-Prese [phone] [address] PPO/POS [place] [id number] [place] [address] documented as of this encounter
[2020-05-23] MEDS ORDERED: MEPERIDINE HCL 50 MG/ML ONE ×3 (03:06→08:24)
[2020-05-23] MEDS ORDERED: PROMETHAZINE INJ 25 MG/ML AMP ONE ×3 (03:06→08:28)
[2020-05-23] MEDS ORDERED: NA CHLORIDE 0.9% 1,000 ML ONE (03:07)
[2020-05-23 03:44] LABS: Absolute Lymphocytes (CBC) 3.4 K/uL (0.7-4.9); Basophils % 0.7 % (0-1.3); Hematocrit 35.3 % (36.0-45.0); Lymphocytes % 15.2 % (15.3-44.8); MPV 8.9 fL (7.6-11.3); RBC Red Blood Cell Count 4.19 M/uL (3.86-4.86)
[2020-05-23 03:49] LABS: Potassium 4.4 mmol/L (3.5-5.1)
[2020-05-23 04:03] LABS: Blood Morphology Comment NOT SEEN (NOT SEEN); Platelet Estimate INCR
[2020-05-23] MEDS ORDERED: dexAMETHasone 10 MG/ML VIAL ONE (05:39)
[2020-05-23] MEDS ORDERED: CLINDAMYCIN 900MG/D5W 900 MG/50 ML IVPB IV ONE (05:39)
[2020-05-23] MEDS ORDERED: ACETAMINOPHEN 500 MG TAB PO PRN (07:37)
[2020-05-23] MEDS ORDERED: HYDROMORPHONE HCL 0.5 MG/0.5 ML INJ IV PRN (07:37)
[2020-05-23] MEDS ORDERED: VANCOMYCIN/NS 1 gm 1 GM/250 ML BAG IVPB SCH (07:45)
[2020-05-23] MEDS: NA CHLORIDE 0.9% 1,000 ML IV SCH ×3 (08:00→18:00)
--- NOTE | 2020-05-23 08:13 | ER ---
Nurse's Notes [facility] Name: Keiry Umaña Age: 44 yrs Sex: Female : 1975 Arrival Date: 05/23/2020 Time: 02:17 Bed 5 Private MD: Jammie Avery Diagnosis: Peritonsillar Cellulitis/swelling Presentation: 05/23 02:29 Chief complaint: Patient states: Pt reports she started having chills fever and a sore ea throat on Tuesday morning, she was seen at [place] and was diagnosed with strep and was prescribed cephalexin 500 mg. Coronavirus screen: At this time, the client does not indicate any symptoms associated with coronavirus-19. Ebola Screen: No symptoms or risks identified at this time. Initial Sepsis Screen: Does the patient meet any 2 criteria? No. Patient's initial sepsis screen is negative. Does the patient have a suspected source of infection? No. Patient's initial sepsis screen is negative. Risk Assessment: Do you want to hurt yourself or someone else? Patient reports no desire to harm self or others. Onset of symptoms was May 23, 2020. 02:29 Method Of Arrival: Ambulatory ea 02:29 Acuity: CHERYL 4 ea Triage Assessment: 02:35 General: Appears uncomfortable, Behavior is appropriate for age. Pain: Complains of ea pain in left aspect of posterior pharynx and right aspect of posterior pharynx. EENT: Reports sore throat. 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 - Social history:: Smoking status: Patient denies any tobacco usage or history of. Screenin:32 Abuse screen: Denies threats or abuse. Nutritional screening: No deficits noted. ea Tuberculosis screening: No symptoms or risk factors identified. Fall Risk None identified. Assessment: 02:43 General: Appears uncomfortable, Behavior is appropriate for age. Pain: Complains of ea pain in right aspect of posterior pharynx and left aspect of posterior pharynx. Neuro: Level of Consciousness is awake, alert, obeys commands, Oriented to person, place, time, situation. Cardiovascular: Patient's skin is warm and dry. Respiratory: Airway is patent Respiratory effort is even, unlabored, Respiratory pattern is regular, symmetrical, Breath sounds are clear bilaterally. EENT: Reports sore throat, difficulty swallowing . Derm: Skin is pink, warm \T\ dry. 03:00 Reassessment: Patient and/or family updated on plan of care and expected duration. Pain ea level reassessed. Patient is alert, oriented x 3, equal unlabored respirations, skin warm/dry/pink. 04:30 Reassessment: Patient and/or family updated on plan of care and expected duration. Pain ea level reassessed. Patient is alert, oriented x 3, equal unlabored respirations, skin warm/dry/pink. Returned from CT. 05:47 Reassessment: Patient and/or family updated on plan of care and expected duration. Pain ea level reassessed. Patient is alert, oriented x 3, equal unlabored respirations, skin warm/dry/pink. 06:00 Reassessment: [phone]. ea 06:46 Reassessment: Patient and/or family updated on plan of care and expected duration. Pain ea level reassessed. Patient is alert, oriented x 3, equal unlabored respirations, skin warm/dry/pink. 07:00 Reassessment: RECD REPORT FROM SHARATH ALONZO. 44YO WF P/W SORE THROAT AND FEVER, DX WITH bp TONSILLAR ABSCESS. TRANSFER FOR ENT SURGERY PENDING. 08:00 Reassessment: PT SEEN BY ENT C/S. TRANSFER CANCELLED, PT TO BE ADMITTED TO ENT. bp 09:12 Reassessment: ADMIT COMPLETE. PT ASSIGNED 215. EENT: Throat is reddened has enlarged bp tonsils. Vital Signs: 02:29 BP 176 / 79; Pulse 95; Resp 16; Temp 98.5; Pulse Ox 100% on R/A; Weight 129.73 kg; ea Height 5 ft. 7 in. (170.18 cm); Pain 9/10; 04:39 BP 112 / 60; Pulse 73; Resp 18; Pulse Ox 100% ; ea 04:39 BP 124 / 55; Pulse 73; Resp 18; Pulse Ox 100% ; ea 05:42 BP 118 / 75; Pulse 70; Resp 17; Pulse Ox 98% ; rr5 06:01 BP 147 / 88; Pulse 76; Resp 18; Pulse Ox 100% ; ea 07:00 BP 125 / 57; Pulse 71; Resp 16; Pulse Ox 100% ; bp 08:00 BP 147 / 73; Pulse 96; Resp 16; Pulse Ox 99% ; bp 09:00 BP 160 / 82; Pulse 83; Resp 16; Temp 98.5; Pulse Ox 98% ; bp 02:29 Body Mass Index 44.79 (129.73 kg, 170.18 cm) ea ED Course: 02:17 Patient arrived in ED. es 02:17 Jammie Avery MD is Private Physician. es 02:28 Dm William MD is Attending Physician. pkl 02:32 Triage completed. ea 02:34 Patient has correct armband on for positive identification. Bed in low position. Call ea light in reach. Side rails up X2. 02:34 Arm band placed on right wrist. Patient placed in an exam room, on a stretcher, on ea pulse oximetry. 02:42 Ivon Engel RN is Primary Nurse. ea 03:30 Inserted saline lock: 22 gauge in right hand, using aseptic technique. Blood collected. ea 03:48 Notified ED physician of a critical lab result(s). 22.3 WBC. sg 04:30 Soft Tissue Neck Wo Contr In Process Unspecified. EDMS 08:08 Attending Physician role handed off by Dm William MD kdr 08:08 Jeff Chamorro MD is Attending Physician. kdr 08:10 Dianne Roberts MD is Hospitalizing Provider. kdr 09:06 Primary Nurse role handed off by Ivon Engel RN bp 09:06 Renan Wan, CHERI is Primary Nurse. bp 09:12 No provider procedures requiring assistance completed. Patient admitted, IV remains in bp place. Administered Medications: 03:31 Drug: Demerol 50 mg Route: IVP; Site: right hand; ea 04:00 Follow up: Response: No adverse reaction; RASS: Alert and Calm (0) ea 03:32 Drug: NS 0.9% 1000 ml Route: IV; Rate: 125 ml/hr; Site: right hand; ea 09:31 Follow up: IV Status: Completed infusion; IV Intake: 1000ml bp 03:32 Drug: Phenergan 12.5 mg Route: IVP; Site: right hand; ea 04:00 Follow up: Response: No adverse reaction ea 05:40 Drug: Clindamycin 900 mg Route: IVPB; Infused Over: 30 mins; Site: right hand; ea 06:20 Follow up: Response: No adverse reaction; IV Status: Completed infusion; IV Intake: [id number] 05:40 Drug: Decadron - Dexamethasone 10 mg Route: IVP; Site: right hand; ea 06:40 Follow up: Response: No adverse reaction rr5 05:45 Drug: Demerol 50 mg {Note: RASS 0.} Route: IVP; Site: right hand; ea 06:45 Follow up: Response: No adverse reaction; Pain is decreased; RASS: Alert and Calm (0) rr5 05:46 Drug: Phenergan 12.5 mg Route: IVP; Site: right hand; ea 06:45 Follow up: Response: No adverse reaction rr5 08:10 Drug: Demerol 50 mg Route: IVP; Site: right hand; bp 09:15 Follow up: Response: No adverse reaction bp 08:10 Drug: Zofran (Ondansetron) 4 mg Route: IVP; Site: right hand; bp 09:16 Follow up: Response: No adverse reaction bp 08:20 Drug: Promethazine 12.5 mg Route: IVP; Site: right hand; bp 09:16 Follow up: Response: No adverse reaction bp Intake: 06:20 IV: 50ml; Total: 50ml. rr5 09:31 IV: 1000ml; Total: 1050ml. bp Outcome: 08:12 Decision to Hospitalize by Provider. kdr 09:37 Admitted to Med/surg accompanied by tech, room 215, Report called to CARL ALONZO bp 09:37 Condition: stable bp 09:37 Instructed on the need for admit. 10:31 Patient left the ED. bp Signatures: Dispatcher [employer] EDAkin Forte RN RN sg Lam, Pin, MD MD pkl Rittger, Kevin, MD MD kdr Viv León Elena, RN RN ea Renan Wan, RN RN bp Sharath Villalta RN RN rr5
--- NOTE | 2020-05-23 08:13 | EDPHYS ---
Physician Documentation [facility] Name: Keiry Umaña Age: 44 yrs Sex: Female : 1975 Arrival Date: 05/23/2020 Time: 02:17 Bed 5 Private MD: Jammie Avery ED Physician Jeff Chamorro HPI: 05/23 02:52 This 44 yrs old Female presents to ER via Ambulatory with complaints of pkl Fever, chills, Sore Throat. 02:52 The patient presents with sore throat, dysphagia, of solids. The patient describes pkl throat pain as constant. Onset: The symptoms/episode began/occurred 4 day(s) ago. Seen at [facility] ER this week. Given steroid injection and Cephalexin 500 mg PO. Patient said she is not better. 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 - Social history:: Smoking status: Patient denies any tobacco usage or history of. ROS: 02:52 Eyes: Negative for injury, pain, redness, and discharge. pkl 02:52 ENT: Positive for sore throat. 02:52 Neck: Negative for stiffness. 02:52 Cardiovascular: Negative for chest pain. 02:52 Respiratory: Negative for cough, shortness of breath. 02:52 Abdomen/GI: Negative for abdominal pain, nausea, vomiting, and diarrhea. 02:52 Back: Negative for acute changes. 02:52 : Negative for urinary symptoms. 02:52 MS/extremity: Negative for acute changes. 02:52 Skin: Negative for rash. 02:52 Neuro: Negative for altered mental status. Exam: 02:52 Head/Face: Normocephalic, atraumatic. Eyes: Pupils equal round and reactive to light, pkl extra-ocular motions intact. Lids and lashes normal. Conjunctiva and sclera are non-icteric and not injected. Cornea within normal limits. Periorbital areas with no swelling, redness, or edema. 02:52 ENT: Posterior pharynx: swelling, that is mild, erythema. 02:52 Neck: Exam negative for nuchal rigidity. 02:52 Chest/axilla: Exam negative for acute changes. 02:52 Cardiovascular: Rate: normal, Rhythm: regular. 02:52 Respiratory: the patient does not display signs of respiratory distress, Respirations: normal, Breath sounds: are clear throughout. 02:52 Abdomen/GI: Exam negative for acute changes. 02:52 Back: Exam negative for acute changes. 02:52 : Exam negative for acute changes. 02:52 Musculoskeletal/extremity: Exam is negative for acute changes. 02:52 Skin: Exam negative for rash. 02:52 Neuro: Orientation: is normal, Mentation: is normal, Cranial nerves: grossly normal, Motor: is normal. Vital Signs: 02:29 BP 176 / 79; Pulse 95; Resp 16; Temp 98.5; Pulse Ox 100% on R/A; Weight 129.73 kg; ea Height 5 ft. 7 in. (170.18 cm); Pain 9/10; 04:39 BP 112 / 60; Pulse 73; Resp 18; Pulse Ox 100% ; ea 04:39 BP 124 / 55; Pulse 73; Resp 18; Pulse Ox 100% ; ea 05:42 BP 118 / 75; Pulse 70; Resp 17; Pulse Ox 98% ; rr5 06:01 BP 147 / 88; Pulse 76; Resp 18; Pulse Ox 100% ; ea 07:00 BP 125 / 57; Pulse 71; Resp 16; Pulse Ox 100% ; bp 08:00 BP 147 / 73; Pulse 96; Resp 16; Pulse Ox 99% ; bp 09:00 BP 160 / 82; Pulse 83; Resp 16; Temp 98.5; Pulse Ox 98% ; bp 02:29 Body Mass Index 44.79 (129.73 kg, 170.18 cm) ea MDM: 02:28 Patient medically screened. pkl 06:43 Data reviewed: vital signs, nurses notes, lab test result(s), radiologic studies, CT pkl scan. ED course: Talked to Dr. Adan, will see patient in the ER. 06:45 Differential diagnosis: Dysphagia. Left tonsillar abscess. Right submandibular pkl sialolith. Diabetes. Chronic renal disease. 05/23 02:52 Order name: CBC with Diff; Complete Time: 04:04 pkl 05/23 02:52 Order name: Chem 7; Complete Time: 03:59 pkl 05/23 02:52 Order name: Strep; Complete Time: 06:17 pkl 05/23 03:49 Order name: Manual Differential; Complete Time: 04:04 EDMS 05/23 06:15 Order name: Throat Culture EDMS 05/23 06:36 Order name: SARS-COV-2 RT PCR; Complete Time: 19:02 EDMS 05/23 07:48 Order name: Basic Metabolic Panel EDMS 05/23 07:48 Order name: Basic Metabolic Panel EDMS 05/23 07:48 Order name: CBC with Automated Diff EDMS 05/23 07:48 Order name: CBC with Automated Diff EDMS 05/23 07:48 Order name: Lipid Profile EDMS 05/23 07:48 Order name: Lipid Profile EDMS 05/23 07:48 Order name: Protime (+INR) EDMS 05/23 04:09 Order name: Soft Tissue Neck Wo Contr; Complete Time: 19:02 EDMS 05/23 07:48 Order name: CONS Pharmacy Consult EDMS 05/23 07:48 Order name: CONS Pharmacy Consult EDMS 05/23 07:48 Order name: Protime (+INR) EDMS 05/23 07:48 Order name: PTT, Activated Partial Thromb EDMS 05/23 07:48 Order name: PTT, Activated Partial Thromb EDMS 05/23 07:48 Order name: CONS Physician Consult EDMS 05/23 07:48 Order name: CONS Physician Consult EDMS 05/23 07:48 Order name: NPO EDMS Administered Medications: 03:31 Drug: Demerol 50 mg Route: IVP; Site: right hand; ea 04:00 Follow up: Response: No adverse reaction; RASS: Alert and Calm (0) ea 03:32 Drug: NS 0.9% 1000 ml Route: IV; Rate: 125 ml/hr; Site: right hand; ea 09:31 Follow up: IV Status: Completed infusion; IV Intake: 1000ml bp 03:32 Drug: Phenergan 12.5 mg Route: IVP; Site: right hand; ea 04:00 Follow up: Response: No adverse reaction ea 05:40 Drug: Clindamycin 900 mg Route: IVPB; Infused Over: 30 mins; Site: right hand; ea 06:20 Follow up: Response: No adverse reaction; IV Status: Completed infusion; IV Intake: [id number] 05:40 Drug: Decadron - Dexamethasone 10 mg Route: IVP; Site: right hand; ea 06:40 Follow up: Response: No adverse reaction rr5 05:45 Drug: Demerol 50 mg {Note: RASS 0.} Route: IVP; Site: right hand; ea 06:45 Follow up: Response: No adverse reaction; Pain is decreased; RASS: Alert and Calm (0) rr5 05:46 Drug: Phenergan 12.5 mg Route: IVP; Site: right hand; ea 06:45 Follow up: Response: No adverse reaction rr5 08:10 Drug: Demerol 50 mg Route: IVP; Site: right hand; bp 09:15 Follow up: Response: No adverse reaction bp 08:10 Drug: Zofran (Ondansetron) 4 mg Route: IVP; Site: right hand; bp 09:16 Follow up: Response: No adverse reaction bp 08:20 Drug: Promethazine 12.5 mg Route: IVP; Site: right hand; bp 09:16 Follow up: Response: No adverse reaction bp Disposition: 05/23/20 08:12 Hospitalization ordered by Dianne Roberts for Observation. Preliminary diagnosis is Peritonsillar Cellulitis/swelling. - Bed requested for Telemetry/MedSurg (observation). - Status is Observation. bp - Condition is Fair. - Problem is new. - Symptoms have improved. Signatures: Dispatcher [employer] EDGabriella Devries RN RN dw Lam, Pin, MD MD pkl Rittger, Kevin, MD MD kdr Antunez, Elena, RN RN ea Peltier, Brian, RN RN bp Roque, Raymond RN rr5 Corrections: (The following items were deleted from the chart) 05:24 02:52 CORONAVIRUS+MR.LAB.BRZ ordered. EDWI EDMS 09:02 08:12 Hospitalization Ordered by Dianne Roberts MD for Observation. Preliminary dw diagnosis is Peritonsillar Cellulitis/swelling. Bed requested for Telemetry/MedSurg (observation). Status is Observation. Condition is Fair. Problem is new. Symptoms have improved. kdr 10:31 09:02 05/23/2020 08:12 Hospitalization Ordered by Dianne Roberts MD for Observation. bp Preliminary diagnosis is Peritonsillar Cellulitis/swelling. Bed requested for Telemetry/MedSurg (observation). Status is Observation. Condition is Fair. Problem is new. Symptoms have improved. dw
[2020-05-23] MEDS ORDERED: ONDANSETRON 4 MG/2 ML VIAL ONE ×2 (08:24→10:09)
--- NOTE | 2020-05-23 08:25 | RAD REPORT ---
EXAM DESCRIPTION: CT - Soft Tissue Neck Wo Contr - 05/23/2020 6:59 am CLINICAL HISTORY: The patient is 44 years old and is Female; SORE THROAT TECHNIQUE: Axial computed tomography images of the neck without intravenous contrast. Sagittal and coronal reformatted images were created and reviewed. This CT exam was performed using one or more of the following dose reduction techniques: automated exposure control, adjustment of the mA and/o r kV according to patient size, and/or use of iterative reconstruction technique. COMPARISON: No relevant prior studies available. FINDINGS: Oropharynx: Asymmetric left tonsillar enlargement. Hypopharynx: Unremarkable. Larynx: Unremarkable. Normal epiglottis. Trachea: Unremarkable. Retropharyngeal space: Unremarkable. Submandibular/parotid glands: 7 mm right submandibular sialolith. Submandibular glands are otherwise unremarkable Parotid glands are symmetric. Thyroid: Unremarkable. No enlarged or calcified nodules. Bones/joints: No acute fracture. Soft tissues: Unremarkable. Vasculature: No acute findings. Lymph nodes: Mildly enlarged left jugular chain lymph nodes up to 2.2 cm. Dental: Right mandibular molar periapical lucencies. Lung apices: See above. IMPRESSION: 1. Asymmetric left tonsillar enlargement. Unable to evaluate for abscess without IV co ntrast. 2. 7 mm right submandibular sialolith. Electronically signed by: Shawanda Matt MD 05/23/2020 4:45 AM CDT Due to temporary technical issues with the PACS/Fluency reporting system, reports are being signed by the in house radiologist without review as a courtesy to ensure prompt reporting. The interpreting r adiologist is fully responsible for the content of the report.
[2020-05-23] MEDS: VANCOMYCIN 2 GM in NA CHLORIDE 0.9% 500 ML IVPB SCH (08:41)
--- NOTE | 2020-05-23 09:56 | CON ---
Reason For Consultation: Throat swelling. History Of Present Illness: Ms. Umaña is a 44-year-old white female who developed a new onset of sore throat approximately 4 days ago, which was moderate to severe in nature. She was seen at an outside facility and treated with a dose of IV steroids and IV antibiotics and was discharged home with oral Keflex. She was minimally improved, but continued to worsen over the following 3 days to the point she had very severe pain, unable to swallow liquids. She had difficulty trying to swallow Tylenol due to the swelling and had a choking episode. She elected to seek additional medical intervention. She presented to [facility] ER on the night or very chain builder of January 22, 2020. She was noted to have significant swelling of the left oropharynx and tonsil. The patient denies frequent strep throat or tonsillitis episodes in the past. She has never had a peritonsillar abscess before. Past Medical History: Includes diabetes. She reports that her last blood sugar at home was in the range of 220. She is unsure what her morning fasting blood sugar is. She also has a history of stage 3 kidney failure due to her diabetes. Home Medications: Include insulin. A full list is not obtained at this time. Allergies: ketamine, morphine Review of Systems: Reviewed from the emergency room documentation with this admission to the ER and is not significantly changed since that time. Physical Examination: General: The patient appears mildly acutely ill. She is alert and oriented. HEENT: Her face is atraumatic and symmetric. Her pupils are equal, round, reactive. Her extraocular movements are intact. Her external nose is unremarkable. Her lips, teeth, gum, and floor of mouth are unremarkable. She has mild trismus. Her tongue appears very dry. Her mucous membranes are tacky with use of a tongue depressor. Unable to view her oropharynx. There is no bulging of the soft palate, but there is significant swelling with medialization of the left tonsil. There is mild tender cervical lymphadenopathy. There is no significant enlargement or tenderness of her submandibular glands at this time. Laboratory Data: Laboratory studies indicate a leukocytosis at 22, elevated creatinine at 2.4, and elevated blood sugar consistent with her history. A CT scan without contrast due to impaired kidney function demonstrates significant swelling of the left oropharynx and tonsil region extending to the hypopharynx and partially obscuring the left piriform sinus region. There is no evidence of heterogeneity or hyperlucency suggesting a fluid collection at this time. There is moderate likely reactive cervical lymphadenopathy. There are bilateral submandibular stones of several millimeters, which will not be addressed in today's acute visit but may warrant future discussion. Assessment: Acute pharyngitis and tonsillitis, uncontrolled pain, dehydration, uncontrolled diabetes. Plan And Recommendation: Given the patient's failed outpatient therapy and comorbid conditions, I recommend she be placed under observation for continued IV antibiotics. Consideration for IV steroids pending on her degree of swelling and response to medications for her elevated blood sugar. Given her a pre- existing kidney disease, dehydration, risks, further damage and she would benefit from aggressive rehydration via IV fluids. I spoke with the Hospitalist Service regarding her admission and will follow along to re-evaluate for surgical candidacy if necessary and to aid in decision making. At this time, she is not an appropriate candidate for tonsillectomy. I discussed with the patient that tonsillectomy is rarely performed in the setting of acute infection due to the overall degree of inflammation. Finally in view, I would consider a Monospot or other evaluation for EBV disease particularly if patient is not responding to antibiotics. ELIZA/CHECO Voice ID: [id number] Report ID: [id number] RYAN
[2020-05-23] MEDS ORDERED: AMPICILLIN/SULBACT 3 GM in NA CHLORIDE 0.9% 100 ML IVPB SCH (10:00)
[2020-05-23] MEDS ORDERED: HYDROMORPHONE HCL 0.5 MG/0.5 ML INJ ONE (10:09)
[2020-05-23] MEDS: ONDANSETRON 4 MG/2 ML VIAL IV PRN ×3 (10:13→21:32)
[2020-05-23] MEDS ORDERED: NA CHLORIDE 0.9% 250 ML ONE ×2 (12:49→15:50)
[2020-05-23] MEDS ORDERED: PROMETHAZINE INJ 25 MG/ML AMP IV ONE (12:49)
[2020-05-23] MEDS: HYDROMORPHONE HCL 1 MG/ML INJ IV PRN ×3 (13:07→21:32)
[2020-05-23 13:48] VITALS: BMI 44.8
[2020-05-23 15:06] LABS: Absolute Lymphocytes (CBC) 0.8 K/uL (0.7-4.9); Basophils % 0.3 % (0-1.3); Lymphocytes % 4.5 % (15.3-44.8); MPV 8.7 fL (7.6-11.3); RBC Red Blood Cell Count 4.03 M/uL (3.86-4.86)
[2020-05-23] MEDS: AMPICILLIN/SULBACT 3 GM in NA CHLORIDE 0.9% 100 ML IVPB SCH (18:13)
[2020-05-23] MEDS ORDERED: GLUCAGON 1 MG/VIAL IM PRN ×2 (19:18→19:19)
[2020-05-23] MEDS ORDERED: D50W 25 GM/50 ML SYRINGE/VIAL IV PRN ×2 (19:18→19:19)
[2020-05-23] MEDS ORDERED: D50W 25 GM/50 ML SYRINGE/VIAL IV ONE (23:40)
[2020-05-23] MEDS ORDERED: INSULIN -REGULAR HUMAN 50 UNIT/0.5 ML ML IV ONE (23:41)
[2020-05-24] MEDS ORDERED: PROMETHAZINE INJ 25 MG/ML AMP IV ONE ×2 (00:16→14:00)
[2020-05-24] MEDS: AMPICILLIN/SULBACT 3 GM in NA CHLORIDE 0.9% 100 ML IVPB SCH ×5 (00:34→23:48)
[2020-05-24] MEDS: HYDROMORPHONE HCL 1 MG/ML INJ IV PRN ×7 (01:02→23:41)
[2020-05-24 04:37] LABS: Absolute Lymphocytes (CBC) 1.3 K/uL (0.7-4.9); Basophils % 0.5 % (0-1.3); Hematocrit 31.6 % (36.0-45.0); Lymphocytes % 7.5 % (15.3-44.8); RBC Red Blood Cell Count 3.75 M/uL (3.86-4.86)
[2020-05-24 04:39] LABS: Protime INR 1.02
[2020-05-24] MEDS: ONDANSETRON 4 MG/2 ML VIAL IV PRN ×3 (04:48→18:13)
[2020-05-24] MEDS: NA CHLORIDE 0.9% 1,000 ML IV SCH ×2 (04:53→14:06)
[2020-05-24] MEDS: INSULIN -REGULAR HUMAN 50 UNIT/0.5 ML ML SQ SCH ×4 (06:00→18:00)
--- NOTE | 2020-05-24 10:29 | P.HP ---
Certification for Inpatient Patient admitted to: Inpatient With expected LOS: >2 Midnights Patient will require the following post-hospital care: None Practitioner: I am a practitioner with admitting privileges, knowledge of patient current condition, hospital course, and medical plan of care. Services: Services provided to patient in accordance with Admission requirements found in Title 42 Section 412.3 of the Code of Federal Regulations Patient History Date of Service: 05/23/20 Reason for admission: Tonsillar abscess History of Present Illness: Patient is a 44-year-old female came to the hospital with difficulty swallowing. She say she has been drooling a little bit. She said her family take her to [facility] were she was given IV antibiotic dose and a IV steroids shot. She was sent home with Keflex. She continued to get worse so she came to our hospital yesterday evening. She was seen by ENT while she was in the emergency room and it was felt that she may have some swelling in the peritonsillar region. As her symptoms have been worsening, decision was made to admit her to the hospital for IV antibiotic therapy. It appears she could have significant tonsillitis with worse case scenario being tonsillar abscess. She has poorly- controlled diabetes and she has acute on chronic renal insufficiency. She has a host of comorbidities and it is unsafe for her to be discharged home at that this time. I think she meets appropriate criteria for inpatient admission. Will monitor her for the next 48-72 hr. She may end up needing surgery. It will be best for us to treat her aggressively for the next few days so she does not get her airway compromised if the swelling continues to worsen. Inpatient hospitalization for IV antibiotic therapy, aggressive IV hydration, close monitoring of airway, renal function, and blood sugars. Allergies ketamine Allergy (Severe, Verified 03/19/19 22:45) Anaphylaxis morphine Allergy (Intermediate, Verified 11/28/17 00:51) Anaphylaxis Home Medications: Insulin Aspart [Novolog Flexpen] 20 unit SQ AC 02/04/16 Nebivolol HCl [Bystolic*] 10 mg PO DAILY 11/28/17 Biotin/Keratin [Biotin Plus Keratin Tablet] 1 tab PO DAILY 05/23/20 Cyanocobalamin (Vitamin B-12) [Vitamin B12] 1 tab PO DAILY 05/23/20 Ferrous Sulfate 1 tab PO DAILY 05/23/20 Hydralazine HCl 50 mg PO BID 05/23/20 Insulin Degludec [Tresiba] 60 units SQ DAILY 05/23/20 Lisinopril [Zestril] 1 tab PO BEDTIME 05/23/20 - Past Medical/Surgical History Has patient received pneumonia vaccine in the past: No Diabetic: Yes -: Hypertension -: Hyperlipidemia -: IDDM -: Depression -: stage 3 kidney disease -: Appendectomy -: Cholecystectomy -: Bilateral BKAs - Family History Father Medical History: Hypertension, Cancer Notes: pancreatic ca , Brother Medical History: Lung disease, Cancer Notes: lung ca. Mother Medical History: Heart disease, Diabetes, Stroke Notes: - Social History Smoking Status: Never smoker Alcohol use: No CD- Drugs: No Caffeine use: Yes Place of Residence: Home Review of Systems 10-point ROS is otherwise unremarkable Physical Examination - Vital Signs Temperature: 97.7 F Blood Pressure: 126/61 Pulse: 75 Respirations: 19 Pulse Ox (%): 98 - Physical Exam General: Alert, In no apparent distress, Oriented x3 HEENT: Atraumatic, PERRLA, Mucous membr. moist/pink, EOMI, Sclerae nonicteric Neck: Supple, 2+ carotid pulse no bruit, Other (Tenderness in the anterior cervical ), Without JVD or thyroid abnormality, LAD Respiratory: Clear to auscultation bilaterally, Normal air movement Cardiovascular: Regular rate/rhythm, Normal S1 S2, No murmurs Gastrointestinal: Normal bowel sounds, Soft and benign, Non-distended, No tenderness Musculoskeletal: No clubbing, No swelling, No tenderness Integumentary: No rashes Neurological: Normal gait, Normal speech, Normal strength at 5/5 x4 extr, Normal tone, Sensation intact, Cranial nerves 3-12 intact, Normal affect Lymphatics: No axilla or inguinal lymphadenopathy - Studies Microbiology Data (last 24 hrs): 05/23/20 03:28 Throat Group A Streptococcus Rapid Screen - Final Assessment & Plan - Problems (Diagnosis) (1) Tonsillar abscess Current Visit: Yes Status: Suspected (2) Acute renal insufficiency Current Visit: Yes Status: Acute (3) CKD (chronic kidney disease) Current Visit: No Status: Acute Qualifiers: Chronic kidney disease stage: stage 3 (moderate) Qualified Code(s): N18.3 - Chronic kidney disease, stage 3 (moderate) (4) Diabetes mellitus Current Visit: No Status: Acute Qualifiers: Diabetes mellitus type: type 1 Diabetes mellitus complication status: with kidney complications Diabetes mellitus complication detail: with chronic kidney disease Chronic kidney disease stage: stage 3 (moderate) Qualified Code(s): E10.22 - Type 1 diabetes mellitus with diabetic chronic kidney disease; N18.3 - Chronic kidney disease, stage 3 (moderate) (5) Diabetes mellitus, type II, insulin dependent Onset Date: 11/06/15 Current Visit: No Status: Acute (6) HTN (hypertension) Current Visit: No Status: Acute Qualifiers: Hypertension type: essential hypertension Qualified Code(s): I10 - Essential (primary) hypertension (7) Hyperlipidemia Current Visit: No Status: Acute Qualifiers: Hyperlipidemia type: mixed hyperlipidemia Qualified Code(s): E78.2 - Mixed hyperlipidemia (8) Morbid obesity Current Visit: No Status: Acute (9) PAD (peripheral artery disease) Current Visit: No Status: Acute (10) Polycystic ovarian disease Current Visit: No Status: Acute - Plan 1. Continue with IV antibiotic 2. Continue with monitoring airway 3. ENT consultation appreciated 4. Gentle IV hydration, while monitoring renal function closely 5. Monitor CBC; patient was significant leukocytosis 6. Strict blood sugar monitoring; patient blood sugars are poorly controlled which will only make her infection worsen 7. Pain control; monitor very closely 8. GI and DVT prophylaxis Discharge Plan: Home Plan to discharge in: Greater than 2 days - Advance Directives Does patient have a Living Will: No Does patient have a Durable POA for Healthcare: No - Code Status/Comfort Care Code Status Assessed: Yes Code Status: Full Code Critical Care: No Time Spent Managing PTS Care (In Minutes): 45
--- NOTE | 2020-05-24 10:37 | PN ---
History Of Present Illness: The patient was placed under observation yesterday for severe pharyngiti s and left pharyngeal and tonsillar swelling with dehydration. She has been treated with Unasyn and vancomycin and IV fluids. She had elevated potassium yesterday, which was managed by the hospitalist service. Today, she reports overall feeling significantly better in terms of the degree and severit y of throat pain. She continues to have a sensation like something sharp were stuck in her throat on the left side. The right side of her throat feels normal. She has been n.p.o. since yesterday and not had an oral challenge to date. Physical Examination: Vital Signs: The patient remained afebrile. Her vitals signs are stable. General: She is in no acute distress. She is resting comfortably. She is tolerating her own secret ion. She is alert and oriented. HEENT: Her face is symmetric and atraumatic. Her nares are patent. Her trismus is improved compare d to yesterday. She continues to have left tonsillar and pharyngeal swelling with no bulging of the soft palate. The degree of erythema is improved compared to yesterday. Her mucous membrane and tong ue are moist, which also represent an improvement compared to yesterday. Laboratory Studies: Her white count is improved to the range of 16, but remained mild to moderately elevated. Assessment: 1.Acute pharyngitis with tonsillitis, mildly improved. 2.Dehydration, significantly improved. 3.Leukocytosis, improved. Plan And Recommendations: There is no acute plan for surgical intervention; therefore, the patient c an be started on an ADA diet. A verbal order is given to the nursing staff to initiate this. Given her underlying diabetes and kidney issues, I recommend continued support with IV fluids as indicated, continued IV antibiotics. Consideration for steroids at the discretion of the primary team. Steroi ds are likely to significantly improve the swelling, but may adversely effect her blood sugars, so th e risk and benefit of these need to be carefully considered. I will plan to reassess the patient lat er in the day following her p.o. challenge in order to make a determination of whether discharge is a ppropriate from the ENT standpoint or whether continued medical therapy in the hospital will be neces shara. Please feel free to contact me with any questions or concerns. ELIZA/CHECO Voice ID: [id number] Report ID: [id number]
[2020-05-24] MEDS ORDERED: NA CHLORIDE 0.9% 500 ML IV ONE (11:00)
[2020-05-24 11:54] LABS: ALT/SGPT 10 U/L (12-78); AST/SGOT 7 U/L (15-37); Albumin 1.8 g/dL (3.4-5.0); Alkaline Phosphatase 90 U/L (45-117); Bilirubin Direct < 0.1 mg/dL (0-0.2); Bilirubin Total 0.2 mg/dL (0.2-1.0); Protein, Total 6.4 g/dL (6.4-8.2)
[2020-05-24] MEDS ORDERED: FENTANYL CITR 100 MCG/2 ML IV ONE (16:39)
[2020-05-24] MEDS ORDERED: INSULIN -REGULAR HUMAN 50 UNIT/0.5 ML ML SQ ONE (19:19)
[2020-05-24] MEDS: HYDRALAZINE HCL 25 MG TABLET PO SCH (20:36)
[2020-05-24] MEDS: NEBIVOLOL HCL 5 MG TAB PO SCH ×2 (20:36→20:39)
[2020-05-24] MEDS: VANCOMYCIN 2 GM in NA CHLORIDE 0.9% 500 ML IVPB SCH ×2 (20:37→20:57)
[2020-05-25] MEDS: HYDROMORPHONE HCL 1 MG/ML INJ IV PRN ×4 (02:42→12:34)
[2020-05-25] MEDS ORDERED: D50W 25 GM/50 ML SYRINGE/VIAL IV PRN ×3 (03:27→03:49)
[2020-05-25] MEDS ORDERED: GLUCAGON 1 MG/VIAL IM PRN ×2 (03:27→03:41)
[2020-05-25] MEDS: AMPICILLIN/SULBACT 3 GM in NA CHLORIDE 0.9% 100 ML IVPB SCH ×4 (05:37→23:41)
[2020-05-25] MEDS: NA CHLORIDE 0.9% 1,000 ML IV SCH ×3 (05:37→20:00)
[2020-05-25] MEDS ORDERED: INSULIN -REGULAR HUMAN 50 UNIT/0.5 ML ML SQ SCH (07:30)
[2020-05-25] MEDS: INSULIN -REGULAR HUMAN 50 UNIT/0.5 ML ML SQ SCH ×5 (07:30→20:54)
[2020-05-25] MEDS: HYDRALAZINE HCL 25 MG TABLET PO SCH ×2 (08:40→20:11)
[2020-05-25] MEDS: NEBIVOLOL HCL 5 MG TAB PO SCH (08:42)
--- NOTE | 2020-05-25 09:37 | P.PN ---
Date of Service: 05/25/20 HD 3 for acute pharyngitis and left tonsillitis. Patient was significantly improved yesterday morning but reports that around 3PM last night her pain worsened and as remained significantly high throughout the night and this morning. She tolerated some food yesterday but the pain and swelling worsened to the degree that this morning she was only able to take liquids - about 2 cups of coffee and some milk. VSS. Afebrile. Mild distress in terms of pain. Worsening trismus compared to yesterday. Persistant swelling of the left oropharynx and medialialization of the left tonsil which is not improved compared to yesterday. Worsening tenderness of the left neck - difficult to palpate any LAD due to patient tolerance of exam secondary to pain. Labs: not repeated this morning A: Clinically worsening compared to yesterday P: NPO. CT neck without contrast due to elevated Cr and hx stage 3 CRF. Continue IV Abx and IVF for now. Will review scan and consider surgical intervention if fluid collection is suggested.
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
--- NOTE | 2020-05-25 12:01 | RAD REPORT ---
EXAM DESCRIPTION: CT - Soft Tissue Neck Wo Contr - 05/25/2020 11:40 am CLINICAL HISTORY: Neck pain/dysphasia/ COMPARISON: May 23, 2020 TECHNIQUE: Computed axial tomography of the neck was obtained. IV contrast was not requested. Coron al and sagittal reconstruction was performed. All CT scans are performed using dose optimization technique as appropriate and may include automated exposure control or mA/KV adjustment according to patient size. FINDINGS: The left tonsil remains enlarged. A 17 millimeter low-density area surrounds the left ton tru. Fullness of the left piriform sinus probably secondary to incomplete distention Borderline enlargement epiglottis 7 millimeter calculus right submandibular gland. 5 millimeter calculus left submandibular duct No lymphadenopathy is seen Fluid within the sinuses/mastoids is not seen. IMPRESSION: Left tonsillitis. 17 millimeter low-density area adjacent to the left tonsil probably peritonsillar abscess. Evaluation is limited secondary to lack of IV contrast Borderline enlargement of epiglottis 7 millimeter calculus right submandibular gland. 5 millimeter calculus left submandibular duct
[2020-05-25] MEDS: ONDANSETRON 4 MG/2 ML VIAL IV PRN (12:32)
--- NOTE | 2020-05-25 12:35 | RAD REPORT ---
EXAM DESCRIPTION: US - Renal Ultrasound-Complete - 05/25/2020 12:14 pm CLINICAL HISTORY: Acute renal insufficiency COMPARISON: 2012 FINDINGS: The right kidney measures 12 cm with an increased echotexture. The left kidney measures 11 cm with an increased echotexture. Hydronephrosis is not seen. No gross abnormality of bladder is seen IMPRESSION: Mildly increased renal echotexture consistent with parenchymal disease
[2020-05-25] MEDS ORDERED: BUPIVACA 0.25%/EPI 0.0005%/PF 30 ML VIAL ONE ×2 (14:09→14:11)
[2020-05-25] MEDS ORDERED: SUCCINYLCHOLINE 20 MG/ML (10 ML) IV ONE (14:33)
[2020-05-25] MEDS ORDERED: propofoL 200 MG/20 ML VIAL IV ONE (14:37)
[2020-05-25 14:38] LABS: Potassium 4.9 mmol/L (3.5-5.1)
[2020-05-25] MEDS ORDERED: LIDOCAINE 2% MPF 5 ML VIAL ONE (14:38)
[2020-05-25] MEDS ORDERED: KETOROLAC 30 MG/ML INJ ONE (15:16)
[2020-05-25] MEDS ORDERED: dexAMETHasone 10 MG/ML VIAL ONE (15:16)
[2020-05-25] MEDS ORDERED: ONDANSETRON 4 MG/2 ML VIAL ONE ×3 (15:16→16:52)
[2020-05-25] MEDS ORDERED: GLYCOPYRROLATE 0.2 MG/ML SYR ONE ×2 (15:21→15:23)
[2020-05-25] MEDS ORDERED: EPHEDRINE SULF 50 MG/ML VIAL ONE (15:30)
[2020-05-25] MEDS ORDERED: FENTANYL CITR 100 MCG/2 ML ONE (15:35)
[2020-05-25 15:37] LABS: Urine Appearance CLOUDY; Urine Bilirubin NEGATIVE (NEG); Urine Blood TRACE (NEG); Urine Color YELLOW; Urine Glucose TRACE (NEG); Urine Protein 3+ (NEG); Urine Specific Gravity 1.015 (1.005-1.030); Urine Urobilinogen 0.2 mg/dL (0.2-1.0); Urine pH 5.5 (5.0-7.0)
[2020-05-25 15:46] LABS: Urine Protein/Creatinine Ratio 8.24 ratio (<0.15)
[2020-05-25 15:48] LABS: Urine Microscopic Reflex ORDER UMIC
--- NOTE | 2020-05-25 15:48 | P.BOP ---
Preoperative diagnosis: left peritonsillar abscess Postoperative diagnosis: same Primary procedure: left tonsillectomy [employer] P[employer] Assembler: NONE,NONE Estimated blood loss: <10ml Specimen: left tonsil Findings: abscess with pus collected at the posterior superior aspect of the fossa Anesthesia: General Complications: None Implants: none Fluids & blood products: 400ml crystalloid Transferred to: Recovery Room Condition: Good
[2020-05-25] MEDS ORDERED: NA CHLORIDE 0.9% 1,000 ML ONE (15:52)
[2020-05-25 15:53] LABS: Urine Bacteria <20 /HPF (<20); Urine Culture Reflex Order NOT NEEDED; Urine RBC <5 /HPF (NONE SEEN); Urine Yeast PRESENT (NONE SEEN)
[2020-05-25] MEDS ORDERED: HYDROCOD 2.5mg-ACETAMIN 108mg/5mL Soln PO PRN (16:04)
[2020-05-25] MEDS: LABETALOL 20 MG/4ML SYRINGE IV ONE ×3 (16:15→16:38)
[2020-05-25] MEDS: HYDROMORPHONE HCL 1 MG/ML INJ ONE ×4 (16:15→16:48)
[2020-05-25] MEDS ORDERED: LABETALOL 20 MG/4ML SYRINGE IV ONE (16:52)
[2020-05-25] MEDS ORDERED: PROMETHAZINE INJ 25 MG/ML AMP ONE (17:06)
[2020-05-25 22:01] VITALS: O2SAT 97
[2020-05-26] MEDS: NA CHLORIDE 0.9% 1,000 ML IV SCH (02:23)
--- NOTE | 2020-05-26 04:31 | P.PN ---
Subjective Date of Service: 05/24/20 Patient is having more pain today. Her steroid dosing has worn off. May need to reimage the area. Will discuss with ENT. Review of Systems 10-point ROS is otherwise unremarkable Physical Examination - Vital Signs Temperature: 97.3 F Blood Pressure: 115/53 Pulse: 81 Respirations: 18 Pulse Ox (%): 96 - Physical Exam General: Alert, In no apparent distress, Oriented x3 Neck: Other ( Tenderness on palpation), LAD Respiratory: Clear to auscultation bilaterally, Normal air movement Cardiovascular: Regular rate/rhythm, Normal S1 S2, No murmurs Gastrointestinal: Normal bowel sounds, Soft and benign, Non-distended, No tenderness Musculoskeletal: No clubbing, No swelling, No tenderness Integumentary: No rashes Neurological: Normal speech, Normal tone, Normal affect Lymphatics: No axilla or inguinal lymphadenopathy - Studies Microbiology Data (last 24 hrs): 05/23/20 03:28 Throat Culture & Sensitivity - Final NORMAL UPPER RESPIRATORY ALVERTO GROWN. Medications List Reviewed: Yes Assessment & Plan - Problems (Diagnosis) (1) Tonsillar abscess Current Visit: Yes Status: Suspected (2) Acute renal insufficiency Current Visit: Yes Status: Acute (3) CKD (chronic kidney disease) Current Visit: No Status: Acute Qualifiers: Chronic kidney disease stage: stage 3 (moderate) Qualified Code(s): N18.3 - Chronic kidney disease, stage 3 (moderate) (4) Diabetes mellitus Current Visit: No Status: Acute Qualifiers: Diabetes mellitus type: type 1 Diabetes mellitus complication status: with kidney complications Diabetes mellitus complication detail: with chronic kidney disease Chronic kidney disease stage: stage 3 (moderate) Qualified Code(s): E10.22 - Type 1 diabetes mellitus with diabetic chronic kidney disease; N18.3 - Chronic kidney disease, stage 3 (moderate) (5) Diabetes mellitus, type II, insulin dependent Onset Date: 11/06/15 Current Visit: No Status: Acute (6) HTN (hypertension) Current Visit: No Status: Acute Qualifiers: Hypertension type: essential hypertension Qualified Code(s): I10 - Essential (primary) hypertension (7) Hyperlipidemia Current Visit: No Status: Acute Qualifiers: Hyperlipidemia type: mixed hyperlipidemia Qualified Code(s): E78.2 - Mixed hyperlipidemia (8) Morbid obesity Current Visit: No Status: Acute (9) PAD (peripheral artery disease) Current Visit: No Status: Acute (10) Polycystic ovarian disease Current Visit: No Status: Acute - Plan 1. Continue with IV antibiotic 2. Continue with monitoring airway 3. ENT consultation appreciated 4. Gentle IV hydration, while monitoring renal function closely 5. Monitor CBC; patient was significant leukocytosis 6. Strict blood sugar monitoring; patient blood sugars are poorly controlled which will only make her infection worsen 7. Pain control; monitor very closely 8. may need to repeat imaging studies since symptoms are worsening a little bit 9. GI and DVT prophylaxis Discharge Plan: Home Plan to discharge in: Greater than 2 days - Advance Directives Does patient have a Living Will: No Does patient have a Durable POA for Healthcare: No - Code Status/Comfort Care Code Status: Full Code Critical Care: No Time Spent Managing PTS Care (In Minutes): 30
--- NOTE | 2020-05-26 04:35 | P.PN ---
Subjective Date of Service: 05/25/[address] scan mentions some worsening. ENT decided just take the patient to the OR and see if there was an abscess. This was drained. Patient had a left tonsillectomy. Will monitor her closely in the perioperative pd. Review of Systems 10-point ROS is otherwise unremarkable Physical Examination - Vital Signs Temperature: 97.3 F Blood Pressure: 115/53 Pulse: 81 Respirations: 18 Pulse Ox (%): 96 - Physical Exam General: Alert, In no apparent distress, Oriented x3 Neck: LAD Respiratory: Clear to auscultation bilaterally, Normal air movement Cardiovascular: Regular rate/rhythm, Normal S1 S2 Gastrointestinal: Normal bowel sounds, Soft and benign, Non-distended, No tenderness Musculoskeletal: No clubbing, No swelling, No tenderness Neurological: Sensation intact, Cranial nerves 3-12 intact - Studies Microbiology Data (last 24 hrs): 05/23/20 03:28 Throat Culture & Sensitivity - Final NORMAL UPPER RESPIRATORY ALVERTO GROWN. Medications List Reviewed: Yes Assessment & Plan - Problems (Diagnosis) (1) Tonsillar abscess Current Visit: Yes Status: Suspected (2) Acute renal insufficiency Current Visit: Yes Status: Acute (3) CKD (chronic kidney disease) Current Visit: No Status: Acute Qualifiers: Chronic kidney disease stage: stage 3 (moderate) Qualified Code(s): N18.3 - Chronic kidney disease, stage 3 (moderate) (4) Diabetes mellitus Current Visit: No Status: Acute Qualifiers: Diabetes mellitus type: type 1 Diabetes mellitus complication status: with kidney complications Diabetes mellitus complication detail: with chronic kidney disease Chronic kidney disease stage: stage 3 (moderate) Qualified Code(s): E10.22 - Type 1 diabetes mellitus with diabetic chronic kidney disease; N18.3 - Chronic kidney disease, stage 3 (moderate) (5) Diabetes mellitus, type II, insulin dependent Onset Date: 11/06/15 Current Visit: No Status: Acute (6) HTN (hypertension) Current Visit: No Status: Acute Qualifiers: Hypertension type: essential hypertension Qualified Code(s): I10 - Essential (primary) hypertension (7) Hyperlipidemia Current Visit: No Status: Acute Qualifiers: Hyperlipidemia type: mixed hyperlipidemia Qualified Code(s): E78.2 - Mixed hyperlipidemia (8) Morbid obesity Current Visit: No Status: Acute (9) PAD (peripheral artery disease) Current Visit: No Status: Acute (10) Polycystic ovarian disease Current Visit: No Status: Acute - Plan 1. Patient is status post tonsillectomy. Continue with IV antibiotic 2. Continue with monitoring airway 3. ENT consultation appreciated 4. Gentle IV hydration, Renal function is stable 5. Monitor CBC; white blood cell count is slowly coming down 6. Strict blood sugar monitoring and control 7. Pain control; 8. Possible discharge tomorrow if clinically doing much better. Discharge Plan: Home Plan to discharge in: Greater than 2 days - Advance Directives Does patient have a Living Will: No Does patient have a Durable POA for Healthcare: No - Code Status/Comfort Care Code Status: Full Code Critical Care: No Time Spent Managing PTS Care (In Minutes): 30
[2020-05-26] MEDS: AMPICILLIN/SULBACT 3 GM in NA CHLORIDE 0.9% 100 ML IVPB SCH (05:09)
[2020-05-26 05:28] LABS: Absolute Lymphocytes (CBC) 0.8 K/uL (0.7-4.9); Basophils % 0.4 % (0-1.3); Lymphocytes % 4.4 % (15.3-44.8); MPV 8.9 fL (7.6-11.3); RBC Red Blood Cell Count 2.27 M/uL (3.86-4.86)
[2020-05-26 05:33] LABS: Hematocrit 19.5 % (36.0-45.0)
[2020-05-26 05:38] LABS: Albumin 1.7 g/dL (3.4-5.0); Phosphorus 4.3 mg/dL (2.5-4.9); Thyroid Stimulating Hormone 1.18 uIU/mL (0.360-3.740)
[2020-05-26 05:43] LABS: Potassium 5.7 mmol/L (3.5-5.1)
[2020-05-26 07:09] LABS: Blood Morphology Comment NOT SEEN (NOT SEEN); Platelet Estimate INCR
[2020-05-26] MEDS ORDERED: NA CHLORIDE 0.9% 250 ML IV SCH ×2 (08:00→11:00)
[2020-05-26 08:02] LABS: Rheumatoid Factor NEG (NEG)
[2020-05-26] MEDS: INSULIN -REGULAR HUMAN 50 UNIT/0.5 ML ML SQ SCH ×2 (08:39→13:08)
[2020-05-26] MEDS: NEBIVOLOL HCL 5 MG TAB PO SCH (08:41)
[2020-05-26] MEDS: VANCOMYCIN 2 GM in NA CHLORIDE 0.9% 500 ML IVPB SCH (08:42)
[2020-05-26] MEDS: HYDRALAZINE HCL 25 MG TABLET PO SCH (08:42)
--- NOTE | 2020-05-26 09:14 | P.CNS ---
Date of Consult: 05/26/20 Subjective: Patient is a 44-year-old female who presents with dysphagia and drooling since last Tuesday. Patient was taken to [facility] and was diagnosed with strep throat and was given antibiotics and an IV steroid shot. Patient reports symptoms improved but then got worse the next day and included fever/chills and dyspnea therefore she came to the hospital. Patient found to have left tonsilar abscess and had a left tonsillectomy on 05/25. I was consulted for Tonsillitis. Patient examined at bedside. Reports able to eat and swallow medications. Past medical/surgical history: Hypertension, hyperlipidemia, diabetes mellitus, depression, stage 3 kidney disease, appendectomy, cholecystectomy, bilateral BKA Family History: Father with hypertension and pancreatic cancer, Social history: Denies tobacco and alcohol use Allergies ketamine Allergy (Severe, Verified 03/19/19 22:45) Anaphylaxis morphine Allergy (Intermediate, Verified 11/28/17 00:51) Anaphylaxis Active Medications Acetaminophen (Tylenol -Extra Strength) 500 mg PO Q6H PRN PRN Reason: pain/fever Stop: 06/22/20 07:38 Hydrocodone Bitart/Acetaminophen (Lortab Solution) 15 ml PO Q6H PRN PRN Reason: Pain scale 2-4 (Mild) Stop: 06/24/20 16:05 Last Admin: 05/25/20 20:10 Dose: 15 ml Documented by: Dextrose (Dextrose 50% Syringe/Vial) 12.5 gm IV PRN PRN; Protocol PRN Reason: HYPOGLYCEMIA Stop: 06/24/20 03:50 Hydralazine HCl (Apresoline) 50 mg PO BID [facility] Stop: 06/23/20 21:01 Last Admin: 05/26/20 08:42 Dose: 50 mg Documented by: Hydromorphone HCl (Dilaudid) 1 mg IV Q3HP PRN PRN Reason: Pain scale 8-10 (Severe) Stop: 06/23/20 20:18 Last Admin: 05/25/20 12:34 Dose: 1 mg Documented by: Sodium Chloride (Ns 1000 Ml Ivbag) 1,000 mls @ 100 mls/hr IV .Q10H SONY Stop: 06/22/20 08:01 Last Admin: 05/26/20 02:23 Dose: 1,000 mls Documented by: Vancomycin HCl 2 gm/ Sodium (Chloride) 500 mls @ 250 mls/hr IVPB Q36H [facility] Stop: 06/22/20 09:01 Last Admin: 05/26/20 08:42 Dose: Not Given Documented by: Ampicillin Sodium/Sulbactam (Sodium 3 gm/ Sodium Chloride) 100 mls @ 200 mls/hr IVPB Q6HR [facility]; Protocol Stop: 06/22/20 18:01 Last Admin: 05/26/20 05:09 Dose: 100 mls Documented by: Sodium Chloride (Sodium Chloride) 250 mls @ 0 mls/hr IV .Q0M [facility] Stop: 06/25/20 08:01 Insulin Human Regular (Novolin -R) 0 unit SQ ACHS [facility]; Protocol Stop: 06/24/20 07:31 Last Admin: 05/26/20 08:39 Dose: 4 unit Documented by: Nebivolol (Bystolic) 10 mg PO DAILY [facility] Stop: 06/24/20 09:01 Last Admin: 05/26/20 08:41 Dose: 10 mg Documented by: Ondansetron HCl (Zofran) 4 mg IV Q4H PRN PRN Reason: NAUSEA / VOMITING Stop: 06/22/20 07:38 Last Admin: 05/25/20 12:32 Dose: 4 mg Documented by: Sodium Chloride (Normal Saline Flush) 10 ml IV BID [facility] Stop: 06/22/20 09:01 Last Admin: 05/26/20 08:42 Dose: Not Given Documented by: ROS: CV: Denies chest pain RESP: Denies dyspnea : Denies dysuria GI: Denies nausea and diarrhea HEENT: Reports swelling and pain to left tonsilar region has improved Objective: Temp Pulse Resp BP Pulse Ox 97.3 F 66 18 187/85 H 96 05/26/20 04:35 05/26/20 08:41 05/26/20 04:35 05/26/20 08:41 05/26/20 04:35 Labs: Sodium 137, potassium 5.7, BUN 44, creatinine 2.62, albumin 1.7, WBC 18.6, hemoglobin 6.4, hematocrit 19.[address] 05/25: EXAM DESCRIPTION: CT - Soft Tissue Neck Wo Contr - 05/25/2020 11:40 am CLINICAL HISTORY: Neck pain/dysphasia/ COMPARISON: May 23, 2020 TECHNIQUE: Computed axial tomography of the neck was obtained. IV contrast was not requested. Coronal and sagittal reconstruction was performed. All CT scans are performed using dose optimization technique as appropriate and may include automated exposure control or mA/KV adjustment according to patient size. FINDINGS: The left tonsil remains enlarged. A 17 millimeter low-density area surrounds the left tonsil. Fullness of the left piriform sinus probably secondary to incomplete distention Borderline enlargement epiglottis 7 millimeter calculus right submandibular gland. 5 millimeter calculus left submandibular duct No lymphadenopathy is seen Fluid within the sinuses/mastoids is not seen. IMPRESSION: Left tonsillitis. 17 millimeter low-density area adjacent to the left tonsil probably peritonsillar abscess. Evaluation is limited secondary to lack of IV contrast Borderline enlargement of epiglottis 7 millimeter calculus right submandibular gland. 5 millimeter calculus left submandibular duct ROS: CV: S1,S2 RESP: Good breath sounds HEENT: Left facial swelling, nontender ABD: Nontender, bowel sounds present Extremities: Bilateral BKA Assessment and plan: Leukocytosis improving Tonsillitis/Left tonsilar abscess, Left tonsillectomy 05/25, Unasyn day 4 Diabetes mellitus, monitor glycemic control Protein calorie malnourished Upon discharge, recommend Clindamycin 300mg PO Q8h to complete 14 day course of antibiotics Will continue to monitor Thank you for consult Patient discussed with Dr. Alvarado
[2020-05-26] MEDS ORDERED: ONDANSETRON 4 MG (ODT) TAB PO PRN (09:55)
--- NOTE | 2020-05-26 09:58 | P.PN ---
Subjective Date of Service: 05/26/20 Chief Complaint: Tonsillar abscess Review of Systems 10-point ROS is otherwise unremarkable Physical Examination - Vital Signs Temperature: 97.3 F Blood Pressure: 187/85 Pulse: 66 Respirations: 18 Pulse Ox (%): 96 - Studies Microbiology Data (last 24 hrs): 05/23/20 03:28 Throat Culture & Sensitivity - Final NORMAL UPPER RESPIRATORY ALVERTO GROWN. Medications List Reviewed: Yes
--- NOTE | 2020-05-26 13:04 | P.PN ---
Date of Service: 05/26/20 HD 4 for acute pharyngitis and left tonsillitis. POD 1 from L tonsillectomy with finding of 1 -1.5 cm abscess at the posterior aspect of the fossa noted during tonsillar dissection. Was unable to access abscess through more conservative approach. VSS. Afebrile. General exam significantly improved with dramatic improvement in pain. OP consistent with L tonsillectomy and expected developing eschar. A: Clinically much improved compared to yesterday. Doing well following tonsillectomy P: Continue ad francie diet. Rx for hydrocodone/APAP for 3 d supply left with Charge Nurse for discharge. Avoid NSAIDs due to CRF. Copious PO fluids. Continue Dr. Loco KUNZ for any bleeding. Card given to patient. FU 1 month or PRN. NO heavy lifting for 2 weeks. Ok to return to work if feeling up to it.
[2020-05-26] MEDS ORDERED: HYDRALAZINE HCL 20 MG/ML VIAL IV PRN (13:13)
[2020-05-26] MEDS ORDERED: AMLODIPINE 5 MG TAB PO SCH (13:13)
[2020-05-26 14:46] VITALS: BP 162/70
[2020-05-26 14:48] VITALS: TEMP 98
--- NOTE | 2020-05-26 14:59 | P.DS ---
Admission Date: 05/23/20 Discharge Date: 05/26/20 Disposition: ROUTINE DISCHARGE Discharge Condition: GOOD Reason for Admission: Tonsillar abscess Brief History of Present Illness: 44-year-old female came to the hospital with difficulty swallowing. She say she has been drooling a little bit. She said her family take her to [facility] were she was given IV antibiotic dose and a IV steroids shot. She was sent home with Keflex. She continued to get worse so she came to our hospital yesterday evening. She was seen by ENT while she was in the emergency room and it was felt that she may have some swelling in the peritonsillar region. As her symptoms have been worsening, decision was made to admit her to the hospital for IV antibiotic therapy. It appears she could have significant tonsillitis with worse case scenario being tonsillar abscess. She has poorly-controlled diabetes and she has acute on chronic renal insufficiency. She has a host of comorbidities and it is unsafe for her to be discharged home at that this time. I think she meets appropriate criteria for inpatient admission. Will monitor her for the next 48-72 hr. She may end up needing surgery. It will be best for us to treat her aggressively for the next few days so she does not get her airway compromised if the swelling continues to worsen. Inpatient hospitalization for IV antibiotic therapy, aggressive IV hydration, close monitoring of airway, renal function, and blood sugars. Hospital Course: Left peritonsillar abscess Status post left tonsillectomy Status post Drainage of abscess The patient was admitted and was monitor closely under telemetry. start on pain control along with IV antibiotics. Cultures were negative. ENT was consulted she underwent drainage of the abscess along the left tonsillectomy. Tolerated the procedure well. continued antibiotics postop. ID was consulted as well. Recommended continue antibiotics 7 more days. patient tolerating p.o.. And is being discharged home today in a stable condition with advice to follow up with PCP in 1 week and also with ENT in 1-2 weeks Vital Signs/Physical Exam: Temp Pulse Resp BP Pulse Ox 98 F 62 18 162/70 H 98 05/26/20 12:00 05/26/20 14:14 05/26/20 12:00 05/26/20 14:44 05/26/20 12:00 General: Alert, In no apparent distress, Obese HEENT: Atraumatic, Normocephalic Neck: Supple, 2+ carotid pulse no bruit Respiratory: Clear to auscultation bilaterally Cardiovascular: Normal pulses, Regular rate/rhythm, Normal S1 S2 Capillary refill: <2 Seconds Gastrointestinal: Soft and benign, W/out hepatosplenomegaly Laboratory Data at Discharge: WBC 18.6 K/uL (4.3-10.9) H 05/26/20 04:43 Hgb 9.3 g/dL (12.0-15.0) L D 05/26/20 10:47 Hct 19.5 % (36.0-45.0) L* D 05/26/20 04:43 Plt Count 417 K/uL (152-406) H 05/26/20 04:43 PT 12.0 SECONDS (9.5-12.5) 05/24/20 03:51 INR 1.02 05/24/20 03:51 APTT 27.1 SECONDS (24.3-36.9) 05/24/20 03:51 Sodium Cancelled 05/26/20 06:00 Potassium Cancelled 05/26/20 06:00 BUN Cancelled 05/26/20 06:00 Creatinine Cancelled 05/26/20 06:00 Glucose Cancelled 05/26/20 06:00 Uric Acid 8.0 mg/dL (2.6-6.0) H 05/26/20 04:43 Phosphorus 4.3 mg/dL (2.5-4.9) 05/26/20 04:43 Total Bilirubin 0.2 mg/dL (0.2-1.0) 05/24/20 11:29 AST 7 U/L (15-37) L 05/24/20 11:29 ALT 10 U/L (12-78) L 05/24/20 11:29 Alkaline Phosphatase 90 U/L (45-117) 05/24/20 11:29 Triglycerides 347 mg/dL (<150) H 05/24/20 03:51 Cholesterol 216 mg/dL (<200) H 05/24/20 03:51 HDL Cholesterol 55 mg/dL (40-60) 05/24/20 03:51 Cholesterol/HDL Ratio 3.93 05/24/20 03:51 Home Medications: Insulin Aspart [Novolog Flexpen] 20 unit SQ AC 02/04/16 Nebivolol HCl [Bystolic*] 10 mg PO DAILY 11/28/17 Biotin/Keratin [Biotin Plus Keratin Tablet] 1 tab PO DAILY 05/23/20 Cyanocobalamin (Vitamin B-12) [Vitamin B12] 1 tab PO DAILY 05/23/20 Ferrous Sulfate 1 tab PO DAILY 05/23/20 Hydralazine HCl 50 mg PO BID 05/23/20 Insulin Degludec [Tresiba] 60 units SQ DAILY 05/23/20 Amlodipine [Norvasc*] 5 mg PO DAILY #30 tab 05/26/20 Ibuprofen [Motrin] 400 mg PO TID PRN #30 tab 05/26/20 clindamycin HCL [Clindamycin HCl] 300 mg PO Q8H #30 capsule 05/26/20 New Medications: clindamycin HCL [Clindamycin HCl] 300 mg PO Q8H #30 capsule Ibuprofen [Motrin] 400 mg PO TID PRN #30 tab PRN Reason: Pain Scale 2-4 (Mild) Amlodipine [Norvasc*] 5 mg PO DAILY #30 tab Followup: Shawanda Adan MD [ACTIVE - CAN ADMIT] - Time spent managing pt's care (in minutes): 40
[2020-05-26] MEDS ORDERED: AMPICILLIN/SULBACT 3 GM in NA CHLORIDE 0.9% 100 ML IVPB SCH (21:00)
--- NOTE | 2020-05-27 02:37 | PN ---
Date of Progress Note: 05/26/2020 Chief Complaint: Elevated BUN and creatinine, history of diabetic kidney disease, hypertension. History Of Present Illness: The patient has history of stage 3B to 4 with nephrotic range proteinuri a secondary to diabetic nephropathy. Upon arrival to the hospital, the patient's creatinine was 2.4 and GFR 22. Previous baseline creatinine was ranging from 1.8 to 1.9. Review of Systems: The patient is feeling better today. Denies PND or orthopnea. Physical Examination: Lungs: Diminished breath sounds at bases. Heart: S1, S2. Abdomen: Soft, benign. Extremities: Slight edema in both ankles. Impression And Plan: 1.Acute kidney injury on advanced chronic kidney disease with nephrotic range proteinuria, mostly se condary to angiotensin receptor blockers, prerenal azotemia superimposed with effect of Lasix. The p atient has history of diabetic kidney disease with proteinuria. She was found to have mild renal aci dosis. Continue to monitor and plan bicarbonate treatment according to lab work results. 2.Marginal hyperkalemia. Continue hydration. Losartan is on hold due to acute on chronic kidney in [facility] and hyperkalemia. 3.Peritonsillar abscess. The patient will follow up with ENT. BRENDA/CHECO Voice ID: [id number] Report ID: [id number]
[2020-05-29 11:29] LABS: Hepatitis C Virus RNA (PCR)log <1.18 log IU/mL
[2020-05-29 19:25] LABS: HBsAG Nonreactive (Nonreactive)
== END 2020-05-26 15:38 | disposition home or self-care (01) | DRG 133 ==
LOC: ER 02:12 → ERHOLD 07:38 → 2ND 09:36
PROVIDERS: ADMIT Hospitalist; ATTEND Family Medicine
PROC: 0C9PXZZ Drainage of Tonsils, External Approach (ICD-10-PCS; 2020-05-25)
PROC: 0CBPXZZ Excision of Tonsils, External Approach (ICD-10-PCS; principal; 2020-05-25 14:00)
PROC: 30233N1 Transfusion of Nonautologous Red Blood Cells into Peripheral Vein, Percutaneous Approach (ICD-10-PCS; 2020-05-26)
DX: J02.9 Acute pharyngitis, unspecified (principal); Z68.41 Body mass index [BMI] 40.0-44.9, adult; E46 Unspecified protein-calorie malnutrition; N17.9 Acute kidney failure, unspecified; E87.2 Acidosis; E78.5 Hyperlipidemia, unspecified; N83.209 Unspecified ovarian cyst, unspecified side; D72.829 Elevated white blood cell count, unspecified; E87.5 Hyperkalemia; E86.0 Dehydration; E66.01 Morbid (severe) obesity due to excess calories; I12.9 Hypertensive chronic kidney disease with stage 1 through stage 4 chronic kidney disease, or unspecified chronic kidney disease; N18.3 Chronic kidney disease, stage 3 (moderate); Z90.49 Acquired absence of other specified parts of digestive tract; Z89.512 Acquired absence of left leg below knee; Z89.511 Acquired absence of right leg below knee; Z88.5 Allergy status to narcotic agent; Z88.8 Allergy status to other drugs, medicaments and biological substances; Z79.899 Other long term (current) drug therapy; Z79.4 Long term (current) use of insulin
CPT/HCPCS: 36415; 70490; 76770; 80048; 80061; 80069; 80076; 80202; 81003; 81015; 82550; 82570; 82652; 82947; 83520; 83970; 84132; 84156; 84443; 84550; 84703; 85018; 85025; 85610; 85730; 86021; 86038; 86160; 86225; 86317; 86430; 86664; 86665; 86704; 86706; 86850; 86900; 86901; 87070; 87081; 87340; 87389; 87522; 88304; 96361; 96365; 96375; 99285; J0295; J0330; J1100; J1170; J2175; J2405; J2550; J2704; J3010; J3370; J7030; J7040; J7050; U0003

== ENCOUNTER 2020-08-25 17:25 | Inpatient (IN) | payer BC ==
--- OUTSIDE RECORDS SUMMARY | 2020-08-25 17:28 | XMS REPORT | Continuity of Care Document ---
:1975 Author Organization [facility] t Address [address] [place] [address] Dr. [address] [place] [address] Care Team Providers Name Role Phone Bin PEARSON, S. Primary Care Physician Michael PEARSON Attending Clinician Doctor Unassigned, Name Attending Clinician Unavailable Pob1, Care Clinic Attending Clinician Unavailable Pob, Lab Main Attending Clinician Unavailable Zander Arias Attending Clinician Payers Payer Name Policy Type Policy Number Effective Date Expiration Date Emmett davis BLUE CROSS BLUE [id number] 2018 [facility]:00 [id number] /10/2017-PresentPP O Problems Condition Condition Condition Status Onset Resolution Last Treating Co mments Source Name Details Category Date Date Treatment Clinician Date Left upper Left upper Disease Active Overview : quadrant quadrant 07-05 Added Michael o pain pain 00:00: automatic n 00 ally from request for surgery [id number] Family Family Disease Active Overview: history of history of 07-05 Added An derso malignant malignant 00:00: automatic n neoplasm neoplasm 00 ally from of of request pancreas pancreas for surgery [id number] Diarrhea Diarrhea Disease Active Overview: 07-05 Added Anderso 00:00: automatic n 00 ally from request for surgery [id number] Family Family Disease Active Overview: history of history of 07-05 Added An derso cancer of cancer of 00:00: automatic n colon colon 00 ally from request for surgery [id number] Morbid Morbid Problem Active [facility] ([facility] [...] St deficiency deficiency Sara [facility] Acquired Acquired Problem [facility] absence of absence of Sara kes - right leg right leg Yuan lawanda below knee below knee l [facility] ent [facility] Acquired Acquired Diagnosis Active [facility] absence of 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 Memori a below knee below knee l [facility] Type 2 Type [address] [facility] diabetes diabetes [facility] Mixed Mixed Problem Active [facility] hyperlipid hyperlipid Sara kes - emia emia Memoria [facility] Hx of BKA Hx of BKA Problem Active [facility] Abdominal Abdominal Problem Active [facility] pain, pain, [facility] - unspecifie unspecifie Me moria d d l abdominal abdominal Outp ati location location ent Clinics Fatigue, Fatigue, Problem Active [facility] unspecifie unspecifie Sara kes - d type d type Memoria [facility] Body mass Body mass Diagnosis Active [facility] index index [facility] - (BMI) (BMI) Memoria 45.0-49.9, 45.0-49.9, l adult adult [facility] Depression Depression Problem Active [facility] with with [facility] - anxiety anxiety Memoria [facility] Acute UTI Acute UTI Diagnosis Active [facility] Dietary Dietary Diagnosis Active [facility] surveillan surveillan Sara kes - ce and ce and Memoria counseling counseling [facility] Allergies, Adverse Reactions, Alerts Allergy Allergy Status Severity Reaction(s) Onset Inactive Treating Comm ents Source Name Type Date Date Clinician morphine DA Active [facility] 2018-0 [facility] [place] [facility] ketamine DA Active [facility] [place] [facility] morphine DA Active [facility] 2018-0 [facility] [place] [facility] MORPHINE Adverse Active Info Not [facility] Reaction Available [facility] Family History Family Member Diagnosis Comments Start Date Stop Date Source Natural brother -Colon cancer Natural brother -Melanoma MD Rodriguez on Natural brother -Thoracic or Lung MD Vyas Natural brother -Unknown cancer MD Qian bustilloson Natural father -Pancreatic cancer MD Vyas Paternal grandmother -Breast cancer MD Vyas Social History Social Habit Start Date Stop Date Quantity Comments Source Sex Assigned At F MD Rodriguez on Tobacco use and 2019-07-10 2019-07-10 Never used MD Rodriguez on exposure 00:00:00 00:00:00 Alcohol intake 2019-07-10 2019-07-10 Lifetime MD Awais gerard 00:00:00 00:00:00 non-drinker (finding) Smoking Status Start Date Stop Date Source Never smoker MD Vyas Medications Ordered Filled Start Stop Current Ordering Indication Dosage Frequency Signature Comments Components Source Medication Medication Date Date Medication? Clinician (SIG) Name Name Ben Contreras 2019- No Jammie one daily [facility] Starter Starter 03-07-28 Millender times 7 [facility] - pack pack 00:00: 00:00 days, then Memori a 00 :00 bid, then l 2 am and 1 Outpati pm and ent then 2 bid Clinics Ciprofloxac Ciprofloxac 2019- No Jammie [address] [facility] in HCl in HCl 03-07 06-05 Millender [facility] - 00:00: 00:00 [facility] 00 :00 l Outpati ent Clinics Diflucan Diflucan 2019- No Jammie as [facility] 03-07 05-31 Millender [...] Maria T Pen 00:00: 00:00 Yuan lawanda [place] 00 :00 l Outpati ent Clinics hydrALAZINE [...] [facility] [place] 3 Yes Jammie [address] [facility] Millender [facility] Fish Oil Fish Oil Yes Jammie [address] Millender [facility] Procedures This patient has no known procedures. Encounters Start End Encounter Admission Attending Care Care Encounter Source Date/Time Date/Time Type Type Clinicians Facility Department ID 2020-08-19 2020-08-19 Refill [facility], [place] [id number] 00:00:00 00:00:00 myGreek [id number] [facility] 4.2.7.2.686 [id number] 2020-07-22 2020-07-22 [id number] 00:00:00 00:00:00 myGreek [id number] [facility] 4.2.7.2.686 [id number] 2020-07-15 2020-07-15 [address]phone [address]840.114 [id number] 00:00:00 00:00:00 myGreek [id number] [facility] 4.2.7.2.686 [id number] 2020-06-27 2020-06-27 Orders Doctor [address]840.114 [id number] 00:00:00 00:00:00 Only Unassigned, ERNIE [id number] [place] [address]686 [id number] 2020-06-23 2020-06-23 Patient [facility], [address]208.108 [id number] 00:00:00 00:00:00 Secure Msg myGreek [id number] [facility] 4.2.7.2.686 [id number] 2020-05-13 2020-05-13 Telemedici Michael, [facility] 1.2.840.114 [id number] 07:21:59 07:51:59 ne Visit Tyra Hollins [facility] [id number] [facility] 4.2.7.2.686 [id number] 2020-05-09 2020-05-09 Urgent Pob1, Acute [facility] 1.2.840.114 [id number] 14:21:03 14:41:03 Care Care [facility] [id number] [place] 4.2.7.2.686 Professio [id number] nal [address] One 2020-05-01 2020-05-01 Patient Michael, [facility] [id number] 00:00:00 00:00:00 Secure Msg Tyra Hollins [facility] [id number] [facility] 4.2.7.2.686 [id number] 2020-04-25 2020-04-25 Sales And Service Technician Subhash, Adc [facility] 1.2.840.114 [id number] 15:11:37 15:26:37 Visit Lab Main [place] 350.1.13.10 [place] 4.2.7.2.686 Professio [id number] [facility] [address] Building 2020-04-25 2020-04-25 Orders Doctor RANJAN 1.2.840.114 [id number] 00:00:00 00:00:00 Only Unassigned, ERNIE 350.1.13.10 [place] [facility] 4.2.7.2.686 [id number] 2020-04-24 2020-04-24 Telephone Michael, [facility] 1.2.840.114 [id number] 00:00:00 00:00:00 [facility] [id number] [facility] 4.2.7.2.686 [id number] 2020-04-23 2020-04-23 Telephone Michael, [facility] 1.2.840.114 [id number] 00:00:00 00:00:00 [facility] [id number] [facility] 4.2.7.2.686 [id number] 2020-04-18 2020-04-18 Patient MINDY Rodriguez 1.2.683.844 [id number] 00:00:00 00:00:00 [facility] Tyra [facility] 350.1.13.10 [place] [id number] [id number] 2020-03-07 2020-03-07 [facility] [id number] 14:40:00 14:40:00 [facility] Medicine Outpati ent Clinics 2019-09-10 2019-09-10 [facility] [id number] 15:35:00 15:35:00 [facility] Medicine Outpati ent Clinics 2019-08-29 2019-08-29 [facility] [id number] 11:00:00 11:00:00 [facility] Medicine Outpati ent Clinics 2019-08-15 2019-08-15 [facility] [id number] 13:40:00 13:40:00 [facility] Medicine Outpati ent Clinics 2019-02-09 2019-02-09 [facility] [id number] 10:00:00 10:00:00 [facility] Medicine Outpati ent Clinics 2018-10-06 2018-10-06 [facility] [id number] 13:30:00 13:30:00 [facility] Medicine Outpati ent Clinics 2018-10-05 2018-10-05 [facility] [id number] 11:52:00 11:52:00 [facility] Medicine Outpati ent Clinics 2018-09-20 2018-09-20 [facility] [id number] 14:45:00 14:45:00 [facility] Medicine Outpati ent Clinics 2018-07-13 2018-07-13 [facility] [id number] 09:52:00 09:52:00 [facility] 2018-06-06 2018-06-06 [facility] [id number] 10:14:00 10:14:00 [facility] 2018-06-05 2018-06-05 [facility] [id number] [facility] 14:31:00 14:31:00 [facility] 2018-06-02 2018-06-02 [facility] [id number] 21:51:00 21:51:00 [facility] 2018-06-02 2018-06-02 [facility] [id number] 11:00:00 11:00:00 [facility] Results Test Description Test Time Test Comments Results Result Comments Source HEPATIC FUNCTION PANEL 2019-07-07 17:04:00 Test Item Value Reference Range Interpretation Comme nts TOTAL PROTEIN (test code = PROT) 6.0 G/DL 6.4-8.2 L ALBUMIN (test code = ALB) 2.2 G/DL 3.4-5.0 L BILIRUBIN TOTAL (test code = BILT) 0.20 MG/DL 0.2-1.2 N BILIRUBIN DIRECT (test code = BILD) < 0.10 MG/DL 0.00-0.30 N BILIRUBIN INDIRECT (test code = BILIND) 0.10 MG/DL 0.2-1.2 L SGOT/AST (test code = AST) 10 Unit/L 15-37 L SGPT/ALT (test code = ALT) 12 Unit/L 12-78 N ALKALINE PHOSPHATASE TOTAL (test code = ALKP) 86 Unit/L 45-117 N Completed by Nursing: [id number] 17:04:00 Test Item Value Reference Range Interpretation [...] andrew yby method. Completed by Nursing: NOPROTHROMBIN [id number] 17:03:00 Test Item Value Reference Range Interpretation Comments PT PATIENT (test code = PTP) 10.8 SECONDS 9.3-12.9 N INTERNATIONAL NORMAL RATIO 0.94 INR Unit 0.8-1.2 N (test code = INR) THROMBOPLASTIN TIME [id number] 17:03:00 Test Item Value Reference Range Interpretation Comments THROMBOPLASTIN TIME PARTIAL 28.7 SECONDS 26-35 N (test code = PTT) CBC W/O [id number] 16:35:00 Test Item Value Reference Range Interpretation [...] 10.40 fL 7.0-10.5 N MPV) CHEMISTRY 8 [id number] 16:30:00 Test Item Value Reference Range Interpretation [...] 58-135 L code = GFRBED) CHEMISTRY 8 [id number] 16:30:00 Test Item Value Reference Range Interpretation [...] L (test code = GFRBED) TROPONIN I [id number] 16:28:00 Test Item Value Reference Range Interpretation Comments TROPONIN I RAPID 0.00 ng/mL 0.00-0.08 N - The use o f serial (test code = sampling and te sting TROPIRAP) protocol is a recommended pra ctice- An elevated tro ponin level alone is often not sufficient for diagnosis of my ocardial infarction. GLUCOSE BEDSIDE [id number] 16:12:00 Test Item Value Reference Range Interpretation Comments GLUCOSE BEDSIDE TESTING (test code 283 mg/dL 70-110 H = GLUBED) - CT HEAD/BRAIN W/O [id number] 16:02:00 Name: INGRIS MCLEAN [facility] : 1975 Age/S: 43 / F [id number] [address] [place] Unit #: [id number] Loc: Jayjay Lemons [address] Phys: Robyn Moffett MD Acct: [id number] Dis Date: Status: REG ER PHONE #: [phone] Exam Date: 07/07/2019 1559 FAX #: Reason: Code Str raine EXAMS: CPT: [id number] CT HEAD/BRAIN W/O CONT 25049 EXAMINATION: - CT HEAD/BRAIN W/O CONT. LOCATION: C3. HISTORY: Code Stroke, blurry vision, nausea, left- sided weakness. COMPARISON: None. TECHNIQUE: Routine CT of [...] abnormality nor h emorrhage. Findings discussed with MD Zuhair at 07/07/2019 4:01 PM. FOR INTERNAL CODING PURPOSES ONLY RESULT CODE: CVRMD at 1602 Reported and signed by: Ryan Guerrier M.D. PAGE 1 Signed Report (CONTINUED)Name: INGRIS MCLEAN [facility] [place] : 1975 Age/S: 43 / F [address] [facility] Unit #: [id number] Loc: Jayjay Lemons [address] Phys: Robyn Moffett MD Acct: [id number] Dis Date: Status: REG ER PHONE #: [phone] Exam Date: 07/07/2019 3294 FAX #: Reason: Code Stroke EXAMS: CPT: [id number] CT HEAD/BRAIN W/O CONT 84193 <Continued> CC: Fani Colon TELEVISION ANNOUNCER; Robyn Moffett MD Technologist:MARY HENLEY, RT(R)(CT)(MR) CTDI: DLP: Trnscb Date/Time: 07/07/2019 (9652) [email or web address] Orig Print D/T: S: 07/07/2019 (7450) PAGE 2 Signed Report
--- OUTSIDE RECORDS SUMMARY | 2020-08-25 17:29 | XMS REPORT | Summary of Care ---
:1975 Author Organization [facility] Address [address] [place] [address] Care Team Providers Name Role Phone Bon Avery Primary Care Provider MD Elijah Unavailable Reason for Visit Reason Comments Appointment Encounter Details Date Type Department Care Team Description 07/15/[address] [facility] Nephrology- Tyra Rodriguez MD Appointment [place] [id number] [address] [phone] [place] [address] [phone] Allergies Active Allergy Reactions Severity Noted Date Comments Ciprofloxacin Itching, Rash High 02/10/2009 That within t aking a large dosage. Ketamine Hallucinations 02/09/2019 Morphine Hallucinations 12/27/2016 Amlodipine Swelling 04/02/2019 documented as of this encounter (statuses as of 07/15/2020) Medications Medication Sig Dispensed Refills Start Date End Date Status blood sugar diagnostic Monitor BG 6 times a day 180 Strip 12 Active (FREESTYLE LITE STRIPS) stripIndications: Diabetes mellitus type 2 with complications, uncontrolled Insulin Safety 100 Each 0 08/23/2012 Acti ve Spring, Disp, (NOVOFINE AUTOCOVER) 30 x 1/3 " NdleIndications: Diabetes mellitus type 2 with complications, uncontrolled Insulin Spring, 4 (four) times 1 Box 3 05/18/2013 Active Disposable, (BD daily. ULTRAFINE III MINI PEN) 31 x 3/16 " Ndle insulin aspart RAPID inject 35 Units 0 Active (NOVOLOG) 100 unit/mL under the skin 3 injection (three) times daily before meals. BYSTOLIC 10 mg Take 1 tablet by 90 tablet 0 02/05/2020 Active tabletIndications: mouth once daily Essential hypertension, benign dulaglutide inject under the 0 Active (TRULICITY) 0.75 skin. mg/0.5 mL PnIj insulin degludec inject under the 0 Active (TRESIBA FLEXTOUCH skin. U-100 SC) BIOTIN-KERATIN ORAL Take by mouth. 0 Active iron,carb/vit C/vit Take by mouth. 0 Active B12/folic (IRON 100 PLUS ORAL) furosemide 20 mg Take 1 tablet by 60 tablet 3 05/13/2020 Active tabletIndications: mouth every Essential morning and hypertension, benign, evening. CKD stage G3b/A3, GFR 30-44 and albumin creatinine ratio >300 mg/g, Diabetes mellitus type 2 with complications, uncontrolled, Essential hypertension, Nephrotic range proteinuria, Hyperkalemia lisinopril 20 mg Take 1 tablet by 30 tablet 3 05/13/2020 Active tabletIndications: mouth daily. Essential hypertension, benign, CKD stage G3b/A3, GFR 30-44 and albumin creatinine ratio >300 mg/g, Diabetes mellitus type 2 with complications, uncontrolled, Essential hypertension, Nephrotic range proteinuria, Hyperkalemia hydrALAZINE 50 mg Take 1 tablet by 180 tablet 3 05/13/2020 Active tabletIndications: mouth 2 (two) Essential times daily. hypertension, benign documented as of this encounter (statuses as of 07/15/2020) Active Problems Problem Noted Date Nephrotic range proteinuria 05/13/2020 Hyperkalemia 05/13/2020 26 weeks gestation of 03/15/2018 Pelvic pain affecting in second trimester, a ntepartum 03/15/2018 headache in second trimester 03/15/2018 Hypertension affecting in second trimester 0 03/15/2018 Uncontrolled type 2 diabetes mellitus with complicatio n, without long-term 12/20/2017 current use of insulin CKD stage G3b/A3, GFR 30-44 and albumin creatinine rat io >300 mg/g 09/27/2017 Status post bilateral below knee amputation [...] 2 with complications, uncontrol led 12/22/2011 Essential hypertension 12/22/2011 HLD (hyperlipidemia) 12/22/2011 Overview: ICD10 Diagnosis Term Disability 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 Obesity 12/22/2011 Overview: ICD10 Diagnosis Term Disability 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 PCOS (polycystic ovarian syndrome) 12/22/2011 S/P BKA (below knee amputation) 12/22/2011 Neuropathy 12/22/2011 Diabetic foot ulcer 12/22/2011 documented as of this encounter (statuses as of 07/15/2020) Social History Tobacco Use Types Packs/Day Years Used Date Never Smoker Smokeless Tobacco: Never Used Alcohol Use Drinks/Week oz/Week Comments No 0 Standard drinks or equivalent 0.0 Sex Assigned at Date Recorded Not on file documented as of this encounter Last Filed Vital Signs Not on filedocumented in this encounter Miscellaneous Notes Telephone Encounter - Crystal Murphy RN - 07/15/2020 12:55 PM CDTChart reviewed. Labs ordered for upcoming appointment with Nephrology per guidelines. My chart message and/or letter sent as an appointment reminder. Telephone Encounter - Crystal Murphy RN - 07/15/2020 12:53 PM CDTNeeds Nephrology Lab appointment . documented in this encounter Plan of Treatment Date Type Specialty Care Team Description 07/29/2020 Office Visit Nephrology Tyra Rodriguez M D [facility] [place] [address] [phone] Health Maintenance Due Date Last Done Comments EYE EXAM 12/25/1987 Depression Screening 1989 FOOT EXAM 12/25/1995 DTaP,Tdap,and Td Vaccines 1996 (1 - Tdap) PAP SMEAR 1998 HgA1C 06/29/2017 12/27/2016, 12/22/2011 Breast Cancer Screening 2017 (MAMMOGRAM) LDL-C 12/28/2017 12/28/2016, 12/22/2011 INFLUENZA VACCINE (#1) 2020 CREATININE (SERUM) 04/25/2021 04/25/2020, 12/23/2018, 09/03/2018, Additional history exists URINE MICROALBUMIN 04/25/2021 04/25/2020, 12/22/2011 PNEUMOCOCCAL 0-64 YEARS Aged Out No longe r eligible COMBINED SERIES based on patient 's age to complete this topic documented as of this encounter Results Not on filedocumented in this encounter Insurance Payer Benefit Plan Subscriber ID Effective Dates Phone Address Type / Group [employer] [employer] [place] [id number] 2014-Hermann [phone] [address] [place] [id number] [place] [address] documented as of this encounter
--- OUTSIDE RECORDS SUMMARY | 2020-08-25 17:29 | XMS REPORT | Summary of Care ---
:1975 Author Organization [facility] Address [address] [place] [address] Care Team Providers Name Role Phone Bon Avery Primary Care Provider MD Elijah Unavailable Reason for Visit Reason Comments Follow-up ckd Encounter Details Date Type Department Care Team Description 05/13/2020 Telemedicine Visit [facility] Tyra Rodriguez, CKD sta ge G3b/A3, GFR 30-44 and albumin creatinine ratio >300 mg/g (Primary Dx); Nephrology- Essential hypertension, benign; [address] Diabetes mellitus type 2 with complicati ons, uncontrolled; [facility] [place], [place] Essential hypertension; [address] [phone] Nephrotic range proteinuria; Drive, [address] Floor [phone] Hyperkalemia [place], [place] [phone] (Fax) [phone] Allergies Active Allergy Reactions Severity Noted Date Comments Ciprofloxacin Itching, Rash High 02/10/2009 That within t aking a large dosage. Ketamine Hallucinations 02/09/2019 Morphine Hallucinations 12/27/2016 Amlodipine Swelling 04/02/2019 documented as of this encounter (statuses as of 06/01/2020) Medications Medication Sig Dispensed Refills Start Date End Date Status blood sugar Monitor BG 6 times a day 180 Strip 12 01/31/2012 Active diagnostic (FREESTYLE LITE STRIPS) stripIndications: Diabetes mellitus type 2 with complications, uncontrolled Insulin Safety 100 Each 0 08/23/2012 Acti ve [place], Disp, (NOVOFINE AUTOCOVER) 30 x 1/3 " NdleIndications: Diabetes mellitus type 2 with complications, uncontrolled Insulin [place], 4 (four) 1 Box 3 05/18/2013 Ac tive Disposable, (BD times daily. ULTRAFINE III MINI PEN) 31 x 3/16 " Ndle insulin aspart inject 35 0 Activ e RAPID (NOVOLOG) Units under 100 unit/mL the skin 3 injection (three) times daily before meals. BYSTOLIC 10 mg Take 1 90 tablet 0 02/05/2020 Acti ve tabletIndications: tablet by Essential mouth once hypertension, daily benign dulaglutide inject 0 Active (TRULICITY) 0.75 under the mg/0.5 mL PnIj skin. insulin degludec inject 0 Act shaggy (TRESIBA FLEXTOUCH under the U-100 SC) skin. BIOTIN-KERATIN Take by 0 Activ e ORAL mouth. iron,carb/vit Take by 0 Active C/vit B12/folic mouth. (IRON 100 PLUS ORAL) furosemide 20 mg Take 1 60 tablet 3 05/13/2020 Ac tive tabletIndications: tablet by Essential mouth every hypertension, morning and benign, CKD stage evening. G3b/A3, GFR 30-44 and albumin creatinine ratio >300 mg/g, Diabetes mellitus type 2 with complications, uncontrolled, Essential hypertension, Nephrotic range proteinuria, Hyperkalemia lisinopril 20 mg Take 1 30 tablet 3 05/13/2020 Ac tive tabletIndications: tablet by Essential mouth daily. hypertension, benign, CKD stage G3b/A3, GFR 30-44 and albumin creatinine ratio >300 mg/g, Diabetes mellitus type 2 with complications, uncontrolled, Essential hypertension, Nephrotic range proteinuria, Hyperkalemia hydrALAZINE 50 mg Take 1 180 tablet 3 05/13/2020 Active tabletIndications: tablet by Essential mouth 2 hypertension, (two) times benign daily. insulin detemir inject 60 0 Disc ontinued (LEVEMIR) 100 Units under 0 unit/mL injection the skin 2 (two) times daily. lisinopril 10 mg Take 2 0 04/02/2019 Di scontinued tablet tablets by 0 mouth at bedtime. HYDRALAZINE 50 mg Take 1 180 tablet 0 02/05/2020 Discontinued tabletIndications: tablet by 0 ( Reorder) Essential mouth twice hypertension, daily benign lisinopril 20 mg Take 20 mg 0 Di scontinued tablet by mouth 0 (Reorder) daily. documented as of this encounter (statuses as of 06/01/2020) Active Problems Problem Noted Date Nephrotic range [...] HLD (hyperlipidemia) 12/22/2011 Overview: ICD10 Diagnosis Term Medical Information Specialist Utility Obesity 12/22/2011 Overview: ICD10 Diagnosis Term Medical Information Specialist Utility PCOS (polycystic ovarian syndrome) 12/22/2011 S/P BKA (below knee amputation) 12/22/2011 Neuropathy 12/22/2011 Diabetic foot ulcer 12/22/2011 documented as of this encounter (statuses as of 06/01/2020) Social History Tobacco Use Types Packs/Day Years Used Date Never Smoker Smokeless Tobacco: Never Used Alcohol Use Drinks/Week oz/Week Comments No 0 Standard drinks or equivalent 0.0 Sex Assigned at Date Recorded Not on file COVID-19 Exposure Response Date Recorded In the last month, have you been in contact with No / Unsure 05/09/2020 2:21 PM CDT someone who was confirmed or suspected to have Coronavirus / COVID-19? documented as of this encounter Last Filed Vital Signs Not on filedocumented in this encounter Progress Notes Tyra Rodriguez MD - 05/13/2020 10:00 AM CDT TELEHEALTH NOTE Verbal consent obtained from Patient: Keiry Umaña due to the COVID-19 pandemic for telehealthservices provided below. Communication with patient was conducted via Video Call. Location of Patient: Home Location of Provider: Clinic Date of Service: 05/13/2020 Chief Complaint: F/U CKD HPI: Keiry Umaña is a 44 year old female with diabetes for more than 20 years with diabetic retinopathy. She had a 2018 complicated by preeclampsia and premature at 27 weeks. Daughter is now 2 years old and doing well. Patient reports feeling overall well and has no complaints, denies any recent hospitalization or major illness. BP at home has been around 170 systolic. She was recently having swelling but reports that this has resolved. MEDICATIONS: Current Outpatient Medications Medication Sig Dispense Refill BIOTIN-KERATIN ORAL Take [...] skin 3 (three) times daily before meals. Insulin [place], Disposable, (BD ULTRAFINE III MINI PEN) 31 x 3/16 " Ndle 4 (four) times daily. 1 Box 3 Insulin Safety [place], Disp, (NOVOFINE AUTOCOVER) 30 x 1/3 " Ndle 100 Each 0 blood sugar diagnostic (FREESTYLE LITE STRIPS) strip Monitor BG 6 times a day 180 Strip 12 No current facility-administered medications for this visit. ROS Constitutional: Negative for appetite change, chills, fatigue, fever and unexpected weight change. HENT: Negative for congestion. Eyes: Negative for visual disturbance. Respiratory: Negative for chest tightness, shortness of breath and wheezing. Cardiovascular: Negative for chest pain and leg swelling. Gastrointestinal: Negative for nausea and vomiting. Genitourinary: Negative for dysuria, urgency, polyuria, frequency, hematuria and decreased urine volume. Musculoskeletal: Negative for arthralgias, joint swelling and myalgias. Skin: Negative. Neurological: Negative for dizziness, tremors and weakness. Psychiatric/Behavioral: Negative for agitation, behavioral problems, confusion and sleep disturbance. Endocrine: Negative for polyuria. TELEHEALTH EXAM Alert and oriented X 3, no respiratory distress, speaking in full sentences, no reported edema. Hasbilateral BKA. ASSESSMENT/ PLAN Keiry Umaña is a 44 year old female with PMH as above presenting with: CKD (chronic kidney disease) stage 3 G3bA3 Comment: CKD is likely secondary to diabetic nephropathy given longstanding diabetes, diabetic retinopathy, and proteinuria. Patient has bilateral BKA and her creatinine-based GFR is likely overestimating her kidney function. Renal function worsened after and preeclampsia. Patient has persistent nephrotic range proteinuria. Previous CT scan showed mild left hydro. Plan: Patient was counseled about importance of blood sugar and blood pressure control to slow down the progression of CKD. Will continue Lisinopril and add furosemide. Essential hypertension, benign Comment: BP is not well controlled. Plan: Continue current regimen. Will add furosemide. Type 2 diabetes mellitus with stage 3 chronic kidney disease, with long-term current use of insulin Comment: Poorly controlled. Plan: Patient was advised to follow with her PCP for better BS control. RTC in 3 months. After visit summary (AVS ) documentation will be available through [facility] for this encounter. A total of 25 minutes was spent on the Video Call, chart review, and coordination of care with specialists. Tyra Rodriguez MD documented in this encounter Plan of Treatment Name Type Priority Associated Diagnoses Order S chedule BASIC METABOLIC PANEL LAB Routine Essential hypertens ion, Expected: 08/13/2020 (NA, K, CL, CO2, GLUCOSE, benign (Approximate), BUN, CREATININE, CA) CKD stage G3b/A3, GF R Expires: 05/13/2021 30-44 and albumin creatinine ratio >300 mg/g Diabetes mellitus type 2 with complications, uncontrolled Essential hypert ension Nephrotic range proteinuria Hyperkalemia URINALYSIS LAB Routine Essential hypertension, Expe cted: 08/13/2020 benign (Approximate), CKD stage G3b/A3, GFR s: 05/13/2021 30-44 and albumin creatinine ratio >300 mg/g Diabetes mellitus type 2 with complications, uncontrolled Essential hypert ension Nephrotic range proteinuria Hyperkalemia VITAMIN D, 25-OH LAB Routine Essential hypertension, Expected: 08/13/2020 benign (Approximate), CKD stage G3b/A3, GFR s: 05/13/2021 3044 and albumin creatinine ratio >300 mg/g Diabetes mellitus type 2 with complications, uncontrolled Essential hypert ension Nephrotic range proteinuria Hyperkalemia PHOSPHORUS LAB Routine Essential hypertension, Expe cted: 08/13/2020 benign (Approximate), CKD stage G3b/A3, GFR s: 05/13/2021 and albumin creatinine ratio >300 mg/g Diabetes mellitus type 2 with complications, uncontrolled Essential hypert ension Nephrotic range proteinuria Hyperkalemia [employer] LAB Routine Essential hypert ension, Expected: 08/13/2020 benign (Approximate), CKD stage G3b/A3, GFR s: 05/13/202144 and albumin creatinine ratio >300 mg/g Diabetes mellitus type 2 with complications, uncontrolled Essential hypert ension Nephrotic range proteinuria Hyperkalemia CBC WITH DIFF LAB Routine Essential hypertension, Exp ected: 08/13/2020 benign (Approximate), CKD stage G3b/A3, GFR s: 05/13/202144 and albumin creatinine ratio >300 mg/g Diabetes mellitus type 2 with complications, uncontrolled Essential hypert ension Nephrotic range proteinuria Hyperkalemia Health Maintenance Due Date Last Done Comments [...] in this encounter Visit Diagnoses Diagnosis CKD stage G3b/A3, GFR 30-44 and albumin creatinine ratio >300 mg/g - Primary Essential hypertension, benign Diabetes mellitus type 2 with complicati ons, uncontrolled Type II or unspecified type diabetes dionna litus with unspecified complication, uncontrolled Essential hypertension Unspecified essential hypertension Nephrotic range proteinuria Proteinuria Hyperkalemia Hyperpotassemia documented in this encounter Insurance Payer Benefit Plan Subscriber ID Effective Dates Phone Address Type / Group [facility] [id number] 2014-[place] [phone] [address] PPO/POS [facility] [id number] [place] [address] [phone] (Work) documented as of this encounter
--- OUTSIDE RECORDS SUMMARY | 2020-08-25 17:29 | XMS REPORT | Summary of Care ---
:1975 Author Organization [facility] Address [address] [place] [address] Care Team Providers Name Role Phone Bon Avery Primary Care Provider MD Elijah Unavailable Encounter Details Date Type Department Care Team Description 06/23/2020 Patient Secure [facility] Nephrology- Tyra Perez MD [address], [address] [place] [address] Floor [phone] [place] [address] [phone] Allergies Active Allergy Reactions Severity Noted Date Comments Ciprofloxacin Itching, Rash High 02/10/2009 That within t aking a large dosage. Ketamine Hallucinations 02/09/2019 Morphine Hallucinations 12/27/2016 Amlodipine Swelling 04/02/2019 documented as of this encounter (statuses as of 06/26/2020) Medications Medication Sig Dispensed Refills Start Date End Date Status blood sugar diagnostic Monitor BG 6 times a day 180 Strip 12 Active (FREESTYLE LITE STRIPS) stripIndications: Diabetes mellitus type 2 with complications, uncontrolled Insulin Safety 100 Each 0 08/23/2012 Acti ve [place], Disp, (NOVOFINE AUTOCOVER) 30 x 1/3 " NdleIndications: Diabetes mellitus type 2 with complications, uncontrolled Insulin [place], 4 (four) times 1 Box 3 05/18/2013 [...] as of this encounter (statuses as of 06/26/2020) Active Problems Problem Noted Date Nephrotic range [...] HLD (hyperlipidemia) 12/22/2011 Overview: ICD10 Diagnosis Term Disk Operator Utility Obesity 12/22/2011 Overview: ICD10 Diagnosis Term Disk Operator Utility PCOS (polycystic ovarian syndrome) 12/22/2011 S/P BKA (below knee amputation) 12/22/2011 Neuropathy 12/22/2011 Diabetic foot ulcer 12/22/2011 documented as of this encounter (statuses as of 06/26/2020) Social History Tobacco Use Types Packs/Day Years [...] Visit Nephrology Tyra Rodriguez M D [address] [address] [phone] Health Maintenance Due Date Last Done [...] Type / Group BC[employer] [place] [employer] [place] [id number] 2014-[place] [phone] [address] PPO/POS [place] nt [id number] [place] [address] documented as of this encounter
--- OUTSIDE RECORDS SUMMARY | 2020-08-25 17:29 | XMS REPORT | Summary of Care ---
:1975 Author Organization [facility] Address [address] [place] [address] Care Team Providers Name Role Phone Bon Avery Primary Care Provider MD Elijah Unavailable Encounter Details Date Type Department Care Team Description 06/27/2020 Orders Only [facility] Doctor Unassigned, No [address] [facility] [place] [address] [address] [place] [address] Allergies Active Allergy Reactions Severity Noted Date Comments Ciprofloxacin Itching, Rash High 02/10/2009 That within t aking a large dosage. Ketamine Hallucinations 02/09/2019 Morphine Hallucinations 12/27/2016 Amlodipine Swelling 04/02/2019 documented as of this encounter (statuses as of 07/11/2020) Medications Medication Sig Dispensed Refills Start Date End Date Status blood sugar diagnostic Monitor BG 6 times a day 180 Strip 12 Active (FREESTYLE LITE STRIPS) stripIndications: Diabetes mellitus type 2 with complications, uncontrolled Insulin Safety 100 Each 0 08/23/2012 Acti ve [place], Disp, (NOVOFINE AUTOCOVER) 30 x 1/3 " NdleIndications: Diabetes mellitus type 2 with complications, uncontrolled Insulin [place], 4 (four) times 1 Box 3 [...] as of this encounter (statuses as of 07/11/2020) Active Problems Problem Noted Date Nephrotic range [...] HLD (hyperlipidemia) 12/22/2011 Overview: ICD10 Diagnosis Term Rn Cardiac Utility Obesity 12/22/2011 Overview: ICD10 Diagnosis Term Rn Cardiac Utility PCOS (polycystic ovarian syndrome) 12/22/2011 S/P BKA (below knee amputation) 12/22/2011 Neuropathy 12/22/2011 Diabetic foot ulcer 12/22/2011 documented as of this encounter (statuses as of 07/11/2020) Social History Tobacco Use Types Packs/Day Years [...] Office Visit Nephrology Tyra Rodriguez M D [address] [place] [address] [phone] Health Maintenance Due Date Last Done [...] this topic documented as of this encounter Procedures Procedure Name Priority Date/Time Associated Diagnosis Comme nts MEDICATION CORRESPONDENCE Routine 06/27/2020 12:01 AM CDT documented in this encounter Results Not on filedocumented in this encounter Insurance Payer Benefit Plan Subscriber ID Effective Dates Phone Address Type / Group [employer] [place] [employer] [place] [id number] 2014-[place] [phone] [address] PPO/POS [facility] [id number] [place] [address] documented as of this encounter
--- OUTSIDE RECORDS SUMMARY | 2020-08-25 17:30 | XMS REPORT | Summary of Care ---
:1975 Author Organization [facility] Address [address] [place] [address] Care Team Providers Name Role Phone Bon Avery Primary Care Provider MD Elijah Unavailable Reason for Visit Reason Comments Refill Request Encounter Details Date Type Department Care Team Description 08/19/2020 Refill [facility] Nephrology- Tyra Rodriguez MD Refill Request [place] [address] Floor [phone] [place] [phone] Allergies Active Allergy Reactions Severity Noted Date Comments Ciprofloxacin Itching, Rash High 02/10/2009 That within t aking a large dosage. Ketamine Hallucinations 02/09/2019 Morphine Hallucinations 12/27/2016 Amlodipine Swelling 04/02/2019 documented as of this encounter (statuses as of 08/22/2020) Medications Medication Sig Dispensed Refills Start Date End Date Status blood sugar Monitor BG 6 times a day 180 Strip 12 01/31/2012 Active diagnostic (FREESTYLE LITE STRIPS) stripIndications: Diabetes mellitus type 2 with complications, uncontrolled Insulin Safety 100 Each 0 08/23/2012 Acti ve [place], Disp, (NOVOFINE AUTOCOVER) 30 x 1/3 " NdleIndications: Diabetes mellitus type 2 with complications, uncontrolled Insulin [place], 4 (four) 1 Box 3 05/18/2013 Ac [...] C/vit B12/folic mouth. (IRON 100 PLUS ORAL) hydrALAZINE 50 mg Take 1 180 tablet 3 05/13/2020 Active tabletIndications: tablet by Essential mouth 2 hypertension, (two) times benign daily. furosemide 20 mg Take 1 60 tablet 3 07/24/2020 Ac tive tabletIndications: tablet by Essential mouth every hypertension, morning and benign, CKD stage evening. G3b/A3, GFR 30-44 and albumin creatinine ratio >300 mg/g, Diabetes mellitus type 2 with complications, uncontrolled, Essential hypertension, Nephrotic range proteinuria, Hyperkalemia lisinopriL 20 mg Take 1 30 tablet 3 08/22/2020 Ac tive tabletIndications: tablet by Essential mouth daily. hypertension, benign, CKD stage G3b/A3, GFR 30-44 and albumin creatinine ratio >300 mg/g, Diabetes mellitus type 2 with complications, uncontrolled, Essential hypertension, Nephrotic range proteinuria, Hyperkalemia lisinopril 20 mg Take 1 30 tablet 3 05/13/2020 Di scontinued tabletIndications: tablet by 0 ( Reorder) Essential mouth daily. hypertension, benign, CKD stage G3b/A3, GFR 30-44 and albumin creatinine ratio >300 mg/g, Diabetes mellitus type 2 with complications, uncontrolled, Essential hypertension, Nephrotic range proteinuria, Hyperkalemia documented as of this encounter (statuses as of 08/22/2020) Active Problems Problem Noted Date Nephrotic range [...] (hyperlipidemia) 12/22/2011 Overview: ICD10 Diagnosis Term Medical Imaging Technologist Utility Obesity 12/22/2011 Overview: ICD10 Diagnosis Term Medical Imaging Technologist Utility PCOS (polycystic ovarian syndrome) 12/22/2011 S/P BKA (below knee amputation) 12/22/2011 Neuropathy 12/22/2011 Diabetic foot ulcer 12/22/2011 documented as of this encounter (statuses as of 08/22/2020) Social History Tobacco Use Types Packs/Day Years Used Date Never Smoker Smokeless Tobacco: Never Used Alcohol Use Drinks/Week oz/Week Comments No 0 Standard drinks or equivalent 0.0 Sex Assigned at Date Recorded Not on file documented as of this encounter Last Filed Vital Signs Not on filedocumented in this encounter Miscellaneous Notes Telephone Encounter - Crystal Murphy RN - 08/22/2020 1:59 PM CST Received fax refill request for: Requested Prescriptions Pending Prescriptions Disp Refills lisinopriL 20 mg tablet 30 tablet 3 Sig: Take 1 tablet by mouth daily. Last filled: 05.13.20 Follow up scheduled for : 09.16.20 Last office visit: 05.13.20 Refilled approval sent to: Pharmacy: [facility] [address] [place] [id number] Refilled per Guidelines CREATININE Date Value Ref Range Status 04/25/2020 1.71 (H) 0.50 - 1.04 mg/dL Final 12/22/2011 0.66 0.50 - 1.04 MG/DL Final SLATIONAL SPECIALIST Telephone Encounter - Venus Moon RN - 08/19/2020 9:16 AM CST documented in this encounter Plan of Treatment Date Type Specialty Care Team Description 09/16/2020 Office Visit Nephrology Tyra Rodriguez M D [address] [place] [address] [phone] Health Maintenance Due Date Last Done [...] filedocumented in this encounter Visit Diagnoses Diagnosis Essential hypertension, benign CKD stage G3b/A3, GFR 30-44 and albumin creatinine ratio >300 mg/g Diabetes mellitus type 2 with complicati ons, uncontrolled Type II or unspecified type diabetes dionna litus with unspecified complication, uncontrolled Essential hypertension Unspecified essential hypertension Nephrotic range proteinuria Proteinuria Hyperkalemia Hyperpotassemia documented in this encounter Insurance Payer Benefit Plan Subscriber ID Effective Dates Phone Address Type / Group [facility] [id number] 2014-[place] [phone] [address] PPO/POS [place] nt [id number] [place] [address] documented as of this encounter
--- OUTSIDE RECORDS SUMMARY | 2020-08-25 17:30 | XMS REPORT | Summary of Care ---
:1975 Author Organization [facility] Address [address] [place] [id number] Care Team Providers Name Role Phone Bon Avery Primary Care Provider MD Elijah Unavailable Reason for Visit Reason Comments Refill Request Lasix Encounter Details Date Type Department Care Team Description 07/22/2020 Refill [facility]- Tyra Barrett MD Refill Request (Lasix) [address], [address] [place] [address] [place] [address] [phone] Allergies Active Allergy Reactions Severity Noted Date Comments Ciprofloxacin Itching, Rash High 02/10/2009 That within t aking a large dosage. Ketamine Hallucinations 02/09/2019 Morphine Hallucinations 12/27/2016 Amlodipine Swelling 04/02/2019 documented as of this encounter (statuses as of 07/24/2020) Medications Medication Sig Dispensed Refills Start Date End Date Status blood sugar Monitor BG 6 times a day 180 Strip 12 01/31/2012 Active diagnostic (FREESTYLE LITE STRIPS) stripIndications: Diabetes mellitus type 2 with complications, uncontrolled Insulin Safety 100 Each 0 08/23/2012 Acti ve [place], Disp, (NOVOFINE AUTOCOVER) 30 x 1/3 " NdleIndications: Diabetes mellitus type 2 with complications, uncontrolled Insulin [place], 4 (four) 1 Box 3 05/18/2013 Ac [...] C/vit B12/folic mouth. (IRON 100 PLUS ORAL) lisinopril 20 mg Take 1 30 tablet [...] uncontrolled, Essential hypertension, Nephrotic range proteinuria, Hyperkalemia furosemide 20 mg Take 1 60 tablet 3 05/13/2020 Di scontinued tabletIndications: tablet by 0 ( Reorder) Essential mouth every hypertension, morning and benign, CKD stage evening. G3b/A3, GFR 30-44 and albumin creatinine ratio >300 mg/g, Diabetes mellitus type 2 with complications, uncontrolled, Essential hypertension, Nephrotic range proteinuria, Hyperkalemia documented as of this encounter (statuses as of 07/24/2020) Active Problems Problem Noted Date Nephrotic range [...] HLD (hyperlipidemia) 12/22/2011 Overview: ICD10 Diagnosis Term Med Surg Nurse Utility Obesity 12/22/2011 Overview: ICD10 Diagnosis Term Med Surg Nurse Utility PCOS (polycystic ovarian syndrome) 12/22/2011 S/P BKA (below knee amputation) 12/22/2011 Neuropathy 12/22/2011 Diabetic foot ulcer 12/22/2011 documented as of this encounter (statuses as of 07/24/2020) Social History Tobacco Use Types Packs/Day Years Used Date Never Smoker Smokeless Tobacco: Never Used Alcohol Use Drinks/Week oz/Week Comments No 0 Standard drinks or equivalent 0.0 Sex Assigned at Date Recorded Not on file documented as of this encounter Last Filed Vital Signs Not on filedocumented in this encounter Miscellaneous Notes Telephone Encounter - Cony Wilson, RN - 07/24/2020 3:12 PM CDT Received refill request for: Requested Prescriptions Signed Prescriptions Disp Refills furosemide 20 mg tablet 60 tablet 3 Sig: Take 1 tablet by mouth every morning and evening. Authorizing Provider: TYRA BARRETT Ordering User: CONY WILSON Last filled: 05/13/2020 Follow up scheduled for : 09/16/2020 Last office visit: 05/13/2020 Refilled approval sent to: Pharmacy: [facility] - [address] [address] Refilled per Guidelines CREATININE Date Value Ref Range Status 04/25/2020 1.71 (H) 0.50 - 1.04 mg/dL Final 12/22/2011 0.66 0.50 - 1.04 MG/DL Final Telephone Encounter - Candy De Guzman RN - 07/22/2020 12:42 PM CDTFAXED REFILL REQUEST Routing for your approval/refill. It appears that there were enough refills given through . Unsure if pharmacy has the three refills noted. Thank you, Candy De Guzman RN [facility] Access Center Triage Nurse documented in this encounter Plan of Treatment Date Type Specialty Care Team Description 09/16/2020 Office Visit Nephrology Tyra Barrett M D [address] [place], [place] [address] [phone] Health Maintenance Due Date [...] Phone Address Type / Group BCBS OF [facility] [id number] 2014-Prese [phone] [address] [place] [id number] [place] [address] documented as of this encounter
[2020-08-25] MEDS ORDERED: NA CHLORIDE 0.9% 1,000 ML ONE (20:35)
[2020-08-25] MEDS ORDERED: MEPERIDINE HCL 25 MG/ML SYR ONE ×2 (20:59→23:39)
[2020-08-25] MEDS ORDERED: PROMETHAZINE INJ 25 MG/ML AMP ONE ×2 (20:59→23:34)
[2020-08-25 21:02] LABS: Absolute Lymphocytes (CBC) 1.2 K/uL (0.7-4.9); Basophils % 0.4 % (0-1.3); Hematocrit 35.6 % (36.0-45.0); Lymphocytes % 4.4 % (15.3-44.8); MPV 10.4 fL (7.6-11.3)
[2020-08-25 21:03] LABS: Potassium 5.1 mmol/L (3.5-5.1)
[2020-08-25] MEDS ORDERED: CEFTRIAXONE/SWI 1gm 1 GM/10 ML SYR ONE (22:02)
[2020-08-25 22:11] LABS: Urine Amorphous Sediment 2+ /HPF (NONE SEEN); Urine Bacteria <20 /HPF (<20); Urine Culture Reflex Order NOT NEEDED; Urine Mucus 1+ /HPF (NONE SEEN); Urine RBC >50 /HPF (NONE SEEN)
[2020-08-25 22:12] LABS: Urine Blood 2+ (NEG); Urine Glucose 2+ (NEG); Urine Protein 3+ (NEG)
[2020-08-25 22:54] LABS: Blood Morphology Comment NOT SEEN (NOT SEEN); Platelet Estimate ADEQ
--- NOTE | 2020-08-25 23:13 | EDPHYS ---
Physician Documentation [facility] Name: Keiry Umaña Age: 44 yrs Sex: Female : 1975 Arrival Date: 08/25/2020 Time: 17:30 Bed 14 Private MD: ED Physician Joe Vyas HPI: 08/25 20:16 This 44 yrs old Female presents to ER via EMS with complaints of pm1 Nausea/Vomiting. 20:16 The patient presents to the emergency department with nausea, vomiting, abdominal pain, pm1 of the suprapubic area, bilateral flank, chills and bodyaches. Onset: The symptoms/episode began/occurred this morning. Possible causes: unknown, but patient is concerned that it might be kidney stones. The symptoms are aggravated by nothing. The symptoms are alleviated by nothing. Associated signs and symptoms: Pertinent negatives: diarrhea, dysuria. Severity of symptoms: in the emergency department the symptoms are worse. STABLE HAND: 08/26 02:48 LMP 08/2020 wh Historical: - Allergies: 08/25 17:37 KETAMINE; ll1 17:37 Morphine; ll1 - PMHx: 17:37 bilateral foot amputee; Diabetes - IDDM; High Cholesterol; Hypertension; ll1 - PSHx: 17:37 B/L BKA; Cholecystectomy; Appendectomy; ll1 - Immunization history:: Flu vaccine is not up to date. - Social history:: Smoking status: Patient denies any tobacco usage or history of. ROS: 20:16 Eyes: Negative for injury, pain, redness, and discharge, ENT: Negative for injury, pm1 pain, and discharge, Neck: Negative for injury, pain, and swelling, Cardiovascular: Negative for chest pain, palpitations, and edema, Respiratory: Negative for shortness of breath, cough, wheezing, and pleuritic chest pain. 20:16 Back: Negative for injury and pain, MS/Extremity: Negative for injury and deformity, Skin: Negative for injury, rash, and discoloration, Neuro: Negative for headache, weakness, numbness, tingling, and seizure. 20:16 Constitutional: Positive for body aches, chills. 20:16 Abdomen/GI: Positive for abdominal pain, nausea and vomiting, Negative for diarrhea, constipation. 20:16 : Positive for hematuria, Negative for burning with urination, difficulty urinating. Exam: 20:16 Constitutional: This is a well developed, well nourished patient who is awake, alert, pm1 and in no acute distress. Head/Face: Normocephalic, atraumatic. ENT: Nares patent. No nasal discharge, no septal abnormalities noted. Tympanic membranes are normal and external auditory canals are clear. Oropharynx with no redness, swelling, or masses, exudates, or evidence of obstruction, uvula midline. Mucous membranes moist. 20:16 Skin: Warm, dry with normal turgor. Normal color with no rashes, no lesions, and no evidence of cellulitis. MS/ Extremity: Pulses equal, no cyanosis. Neurovascular intact. Full, normal range of motion. 20:16 Cardiovascular: Exam negative for acute changes, Rate: normal, Rhythm: regular, Pulses: no pulse deficits are appreciated. 20:16 Respiratory: Exam negative for acute changes, respiratory distress, shortness of breath. 20:16 Abdomen/GI: Inspection: obese Palpation: soft, in all quadrants, mild abdominal tenderness, in the suprapubic area. 20:16 Back: CVA tenderness, that is mild, is noted bilaterally. 20:16 Neuro: Exam negative for acute changes, Orientation: is normal, Mentation: is normal, Motor: is normal, moves all fours. Vital Signs: 17:33 BP 136 / 80; Pulse 95; Resp 18; Temp 99.6; Pulse Ox 100% ; Weight 127.01 kg; Height 5 ll1 ft. 7 in. (170.18 cm); Pain 9/10; 20:00 BP 145 / 67; Pulse 90; Resp 17; Pulse Ox 98% on R/A; rv 20:45 BP 141 / 74; Pulse 83; Resp 16; Pulse Ox 97% on R/A; rv 21:45 BP 132 / 65; Pulse 80; Resp 18; Temp 99; Pulse Ox 98% on R/A; rv 23:30 BP 146 / 85; Pulse 86; Resp 16; Pulse Ox 100% ; Pain 8/10; rr5 17:33 Body Mass Index 43.85 (127.01 kg, 170.18 cm) ll1 MDM: 20:02 Patient medically screened. [facility] 23:11 Data reviewed: vital signs. Data interpreted: Pulse oximetry: on room air is 98 %. pm1 Interpretation: normal. 11/16 20:12 Order name: CBC with Diff; Complete Time: 22:55 pm1 08/25 20:12 Order name: BMP; Complete Time: 21:11 pm1 08/25 20:12 Order name: COVID-19 pm1 08/25 20:12 Order name: Flu; Complete Time: 21:16 pm1 08/25 20:12 Order name: Strep; Complete Time: 21:16 pm1 08/25 20:12 Order name: Urine Microscopic Only; Complete Time: 22:36 pm1 08/25 21:12 Order name: Manual Differential; Complete Time: 22:55 EDMS 08/25 21:16 Order name: Throat Culture EDMS 08/25 21:16 Order name: Blood Culture Adult (2) pm1 08/25 21:16 Order name: Lactate; Complete Time: 22:36 pm1 08/25 21:16 Order name: Procalcitonin; Complete Time: 22:36 pm1 08/25 21:57 Order name: Urine Dipstick--Ancillary (enter results); Complete Time: 22:36 mt 08/25 21:57 Order name: Urine --Ancillary (enter results); Complete Time: 22:36 mt 08/26 01:50 Order name: SARS-COV-2 RT PCR EDND 08/25 20:12 Order name: CT Stone Protocol pm 08/25 20:12 Order name: Droplet/Contact Precautions; Complete Time: 20:21 pm1 08/25 20:12 Order name: Labs collected and sent; Complete Time: 20:39 pm1 08/25 20:12 Order name: IV Saline Lock; Complete Time: 20:42 pm1 08/26 05:36 Order name: CBC with Automated Diff EDND 08/26 05:46 Order name: Basic Metabolic Panel EDND 08/26 08:30 Order name: Glucose, Ancillary Testing EDND 08/26 11:41 Order name: Glucose, Ancillary Testing EDND 08/25 20:12 Order name: Urine Dipstick-Ancillary (obtain specimen); Complete Time: 00:08 pm1 08/25 20:12 Order name: Urine Test (obtain specimen); Complete Time: 00:08 pm1 Administered Medications: 20:42 Drug: NS 0.9% 1000 ml Route: IV; Rate: 1000 ml; Site: right antecubital; rv 23:30 Follow up: IV Status: Completed infusion; IV Intake: 1000ml rv 20:49 Drug: Demerol 25 mg {Note: RASS 0.} Route: IVP; Site: right antecubital; rv 21:52 Follow up: Response: No adverse reaction; Pain is decreased; RASS: Alert and Calm (0) rv 20:49 Drug: Phenergan 12.5 mg Route: IVP; Site: right upper arm; rv 21:52 Follow up: Response: No adverse reaction; Marked relief of symptoms; Nausea is decreasedrv 21:30 Drug: Rocephin 1 grams Route: IV; Rate: calculated rate; Site: right antecubital; rv 21:35 Follow up: IV Status: Infusion continued upon admission rv 22:55 Drug: NS 0.9% 1000 ml Route: IV; Rate: 1000 ml; Site: right antecubital; rv 08/26 01:40 Follow up: IV Status: Completed infusion; IV Intake: 1000ml rv 08/25 23:30 Drug: Phenergan 12.5 mg Route: IVP; Site: right antecubital; rr5 08/26 01:39 Follow up: Response: No adverse reaction rv 08/25 23:31 Drug: Flagyl 500 mg Volume: 100 ml; Route: IVPB; Rate: 200 ml/hr; Infused Over: 30 rr5 mins; Site: right antecubital; 08/26 01:39 Follow up: IV Status: Completed infusion; IV Intake: 100ml rv 08/25 23:32 Drug: Demerol 25 mg {Note: rass 0.} Route: IVP; Site: right antecubital; rr5 08/26 01:39 Follow up: Response: No adverse reaction; Marked relief of symptoms; Pain is decreased; rv RASS: Drowsy (-1) Disposition: 13:20 Co-signature as Attending Physician, Joe Vyas MD I agree with the assessment and sonali plan of care. Disposition: 08/25/20 23:12 Hospitalization ordered by Dianne Roberts for Inpatient Admission. Preliminary diagnosis are Colitis, Nausea and vomiting. - Bed requested for Telemetry/MedSurg (Inpatient). - Status is Inpatient Admission. ss - Condition is Stable. - Problem is new. - Symptoms have improved. Signatures: Dispatcher [employer] Gabriella Weaver, RN RN dw Joe Vyas MD MD cha Smirch, Shelby, CHERI RN ss Juan Da Silva, WIGS SALESPERSON-C WIGS SALESPERSON-Cla1 Venus Wong, RN RN Reji Song, JORGE DRAIN TILE PRESS OPERATOR pm1 Myron Santamaria, RN RN Flako Villalta, RN RN rr5 Lana Amato, RN RN ll1 Corrections: (The following items were deleted from the chart) 01:10 08/25 23:12 Hospitalization Ordered by Dianne Roberts MD for Inpatient Admission. Preliminary diagnosis is Colitis; Nausea and vomiting. Bed requested for Telemetry/MedSurg (Inpatient). Status is Inpatient Admission. Condition is Stable. Problem is new. Symptoms have improved. pm1 08/26 11:38 01:10 08/25/2020 23:12 Hospitalization Ordered by Dianne Roberts MD for Inpatient dw Admission. Preliminary diagnosis is Colitis; Nausea and vomiting. Bed requested for [facility] ER HOLD. Status is Inpatient Admission. Condition is Stable. Problem is new. Symptoms have improved. 13:02 11:38 08/25/2020 23:12 Hospitalization Ordered by Dianne Roberts MD for Inpatient ss Admission. Preliminary diagnosis is Colitis; Nausea and vomiting. Bed requested for Telemetry/MedSurg (Inpatient). Status is Inpatient Admission. Condition is Stable. Problem is new. Symptoms have improved. dw
--- NOTE | 2020-08-25 23:13 | ER ---
Nurse's Notes [facility] Name: Keiry Umaña Age: 44 yrs Sex: Female : 1975 Arrival Date: 08/25/2020 Time: 17:30 Bed 14 Private MD: Diagnosis: Colitis;Nausea and vomiting Presentation: 08/25 17:33 Chief complaint: Patient states: N/V started today while at work. + back pain, AGUILAR, ll1 entire body aches, weak for 1 day. + chills, took tylenol, chills resolved. Possible syncopal episode, states she fell and lost track of time. Pain to left stump. Coronavirus screen: Client denies travel out of the [place] in the last 14 days. fatigue, nausea, shaking with chills, vomiting. Client presents with at least one sign or symptom that may indicate coronavirus-19. Standard/surgical mask placed on the client. Ebola Screen: Patient denies travel to an Ebola-affected area in the 21 days before illness onset. Initial Sepsis Screen: Does the patient meet any 2 criteria? HR > 90 bpm. No. Patient's initial sepsis screen is negative. Does the patient have a suspected source of infection? Yes: Acute abdominal pain. Risk Assessment: Do you want to hurt yourself or someone else? Patient reports no desire to harm self or others. Onset of symptoms was August 25, 2020. 17:33 Method Of Arrival: EMS: [facility] 17:33 Acuity: CHERYL 3 ll1 TRAY SERVER: 08/26 02:48 LMP 08/2020 wh Historical: - Allergies: 08/25 17:37 KETAMINE; ll1 17:37 Morphine; ll1 - PMHx: 17:37 bilateral foot amputee; Diabetes - IDDM; High Cholesterol; Hypertension; ll1 - PSHx: 17:37 B/L BKA; Cholecystectomy; Appendectomy; ll1 - Immunization history:: Flu vaccine is not up to date. - Social history:: Smoking status: Patient denies any tobacco usage or history of. Screenin:09 Abuse screen: Denies threats or abuse. Denies injuries from another. Nutritional rv screening: No deficits noted. Tuberculosis screening: No symptoms or risk factors identified. Fall Risk None identified. Assessment: 21:08 General: Appears comfortable, Behavior is calm, cooperative. Pain: Complains of pain in rv back. Neuro: Level of Consciousness is awake, alert, obeys commands, Oriented to person, place, time, situation. Cardiovascular: Patient's skin is warm and dry. Respiratory: Airway is patent Respiratory effort is even, unlabored. GI: Abdomen is round non-distended, Reports nausea, vomiting. :. : Reports pain KIDNEYS. Derm: Skin is intact. 23:25 Reassessment: Patient appears in no apparent distress at this time. Patient is alert, rr5 oriented x 3, equal unlabored respirations, skin warm/dry/pink. complaining of abdominal pain and vomiting ED provider aware with order made and carried out. Vital Signs: 17:33 BP 136 / 80; Pulse 95; Resp 18; Temp 99.6; Pulse Ox 100% ; Weight 127.01 kg; Height 5 ll1 ft. 7 in. (170.18 cm); Pain 9/10; 20:00 BP 145 / 67; Pulse 90; Resp 17; Pulse Ox 98% on R/A; rv 20:45 BP 141 / 74; Pulse 83; Resp 16; Pulse Ox 97% on R/A; rv 21:45 BP 132 / 65; Pulse 80; Resp 18; Temp 99; Pulse Ox 98% on R/A; rv 23:30 BP 146 / 85; Pulse 86; Resp 16; Pulse Ox 100% ; Pain 8/10; rr5 17:33 Body Mass Index 43.85 (127.01 kg, 170.18 cm) ll1 ED Course: 17:30 Patient arrived in ED. ll1 17:37 Triage completed. ll1 17:38 Arm band placed on. ll1 20:00 Flako Villalta, CHERI is Primary Nurse. rr5 20:00 Reji Song NP is PHCP. pm1 20:00 Joe Vyas MD is Attending Physician. pm1 20:30 Flu and/or RSV swab sent to lab. Strep swab sent to lab. covid. rr5 20:39 Initial lab(s) drawn, by al, sent to lab. rr5 20:42 Inserted saline lock: 20 gauge in right antecubital area, using aseptic technique. rv 20:42 First set of blood cultures drawn by me. rv 20:52 Radiology exam delayed due to test not completed at this time. vm2 21:09 Patient has correct armband on for positive identification. Pulse ox on. NIBP on. rv 21:23 Myron Santamaria, CHERI is Primary Nurse. rv 21:26 Second set of blood cultures drawn by me. rv 21:53 No provider procedures requiring assistance completed. rv 22:18 CT Stone Protocol In Process Unspecified. EDMS 23:12 Dianne Roberts MD is Hospitalizing Provider. pm1 08/26 01:39 IV is patent, with fluids infusing freely, Patient admitted, IV remains in place. rv Administered Medications: 08/25 20:42 Drug: NS 0.9% 1000 ml Route: IV; Rate: 1000 ml; Site: right antecubital; rv 23:30 Follow up: IV Status: Completed infusion; IV Intake: 1000ml rv 20:49 Drug: Demerol 25 mg {Note: RASS 0.} Route: IVP; Site: right antecubital; rv 21:52 Follow up: Response: No adverse reaction; Pain is decreased; RASS: Alert and Calm (0) rv 20:49 Drug: Phenergan 12.5 mg Route: IVP; Site: right upper arm; rv 21:52 Follow up: Response: No adverse reaction; Marked relief of symptoms; Nausea is decreasedrv 21:30 Drug: Rocephin 1 grams Route: IV; Rate: calculated rate; Site: right antecubital; rv 21:35 Follow up: IV Status: Infusion continued upon admission rv 22:55 Drug: NS 0.9% 1000 ml Route: IV; Rate: 1000 ml; Site: right antecubital; rv 08/26 01:40 Follow up: IV Status: Completed infusion; IV Intake: 1000ml rv 08/25 23:30 Drug: Phenergan 12.5 mg Route: IVP; Site: right antecubital; rr5 08/26 01:39 Follow up: Response: No adverse reaction rv 08/25 23:31 Drug: Flagyl 500 mg Volume: 100 ml; Route: IVPB; Rate: 200 ml/hr; Infused Over: 30 rr5 mins; Site: right antecubital; 08/26 01:39 Follow up: IV Status: Completed infusion; IV Intake: 100ml rv 08/25 23:32 Drug: Demerol 25 mg {Note: rass 0.} Route: IVP; Site: right antecubital; rr5 08/26 01:39 Follow up: Response: No adverse reaction; Marked relief of symptoms; Pain is decreased; rv RASS: Drowsy (-1) Intake: 08/25 23:30 IV: 1000ml; Total: 1000ml. rv 08/26 01:39 IV: 100ml; Total: 1100ml. rv 01:40 IV: 1000ml; Total: 2100ml. rv Outcome: 08/25 23:12 Decision to Hospitalize by Provider. pm1 08/26 01:39 Admitted to ER Hold. Please see [facility] for further documentation. rv Condition: good Discharge instructions given to patient, Instructed on the need for admit, Demonstrated understanding of instructions. 13:02 Patient left the ED. Signatures: Dispatcher [employer] EDMS Grace Crews, RN RN ss Reji Song, JORGE FOREST LANDSCAPE ECOLOGY PROFESSOR pm1 Rahel Valencia 2 Oskar Coronel Ronaldo, RN RN rv Flako Villalta RN RN rr5 Lana Amato RN RN ll1 Corrections: (The following items were deleted from the chart) 08/25 17:38 17:33 Chief complaint: Patient states: N/V started today while at work. + back pain, ll1 AGUILAR, entire body aches, weak for 1 day. + chills, took tylenol, chills resolved. ll1
[2020-08-25] MEDS ORDERED: METRONIDAZOLE 500mg IVPB 500 MG/100 ML BAG IV ONE (23:34)
--- NOTE | 2020-08-26 00:29 | P.HP ---
Certification for Inpatient Patient admitted to: Inpatient With expected LOS: >2 Midnights Patient will require the following post-hospital care: None Practitioner: I am a practitioner with admitting privileges, knowledge of patient current condition, hospital course, and medical plan of care. Services: Services provided to patient in accordance with Admission requirements found in Title 42 Section 412.3 of the Code of Federal Regulations <Juan Da Silva - Last Filed: 08/26/20 00:24> Patient History Date of Service: 08/26/20 Reason for admission: Colitis History of Present Illness: 44-year-old female with history of diabetes mellitus type 2, hypertension, hyperlipidemia, chronic kidney disease presents to the emergency department for abdominal pain, nausea vomiting. Patient reports that she has had pain to bilateral flanks for approximately 1 day with nausea, vomiting, diarrhea. Patient reports that the past she has had kidney stones. Patient was evaluated in the emergency department found to have elevated white blood cell count 26.5 with left shift, CKD 4 with a KI creatinine 2.86 GFR 18 BUN 41 baseline GFR appears to be around 22. Lactic acid 1.7, pro calcitonin 3.49 urine negative for infection. CT shows colitis. Patient tolerating clear liquids, ED provider wishes to admit patient for further evaluation and management. When I saw the patient in the emergency department she is awake, alert, oriented x3. Patient does not appear septic at this time, on exam mild generalized abdominal tenderness. 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 Mother -: Heart disease, Diabetes, Stroke Notes: - Social History Smoking Status: Never smoker Alcohol use: No CD- Drugs: No Caffeine use: Yes Place of Residence: Home <Juan Da Silva - Last Filed: 08/26/20 00:24> Date of Service: 08/26/20 <Dianne Roberts - Last Filed: 08/28/20 09:39> Allergies ketamine Allergy (Severe, Verified 03/19/19 22:45) Anaphylaxis morphine Allergy (Intermediate, Verified 11/28/17 00:51) Anaphylaxis Home Medications: Insulin Aspart [Novolog Flexpen] 20 unit SQ AC PRN 02/04/16 Nebivolol HCl [Bystolic*] 10 mg PO DAILY 11/28/17 Biotin/Keratin [Biotin Plus Keratin Tablet] 1 tab PO DAILY 05/23/20 Cyanocobalamin (Vitamin B-12) [Vitamin B12] 1 tab PO DAILY 05/23/20 Ferrous Sulfate 1 tab PO DAILY 05/23/20 Hydralazine HCl 50 mg PO BID 05/23/20 Insulin Degludec [Tresiba] 60 units SQ DAILY 05/23/20 Dulaglutide [Trulicity] 0.75 mg SQ EVERY 7TH DAY 08/26/20 Furosemide 20 mg PO BID 08/26/20 Lisinopril [Zestril] 20 mg PO DAILY 08/26/20 Review of Systems 10-point ROS is otherwise unremarkable Gastrointestinal: Nausea, Vomiting, Abdominal Pain, Diarrhea <Juan Da Silva - Last Filed: 08/26/20 00:24> Physical Examination - Physical Exam General: Alert, In no apparent distress HEENT: Atraumatic, PERRLA, Mucous membr. moist/pink Neck: Supple, 2+ carotid pulse no bruit, No LAD Respiratory: Clear to auscultation bilaterally, Normal air movement Cardiovascular: Regular rate/rhythm, Normal S1 S2 Capillary refill: <2 Seconds Gastrointestinal: Normal bowel sounds, Tenderness (Mild generalized abdominal tenderness) Musculoskeletal: No contractures, No erythema, No tenderness Integumentary: No rashes Neurological: Normal speech, Normal strength at 5/5 x4 extr, Normal tone, Normal affect Lymphatics: No axilla or inguinal lymphadenopathy - Studies Laboratory Data (last 24 hrs) 08/25/20 20:25: Sodium 131 L, Potassium 5.1, BUN 41 H, Creatinine 2.86 H, Glucose 336 H 08/25/20 20:25: WBC 26.5 H*, Hgb 12.0, Hct 35.6 L, Plt Count 227 Microbiology Data (last 24 hrs): 08/25/20 20:34 Nasopharnyx Influenza Type A Antigen Screen - Final 08/25/20 20:34 Nasopharnyx Influenza Type B Antigen Screen - Final 08/25/20 20:34 Throat Group A Streptococcus Rapid Screen - Final <Juan Da Silva - Last Filed: 08/26/20 00:24> - Studies Microbiology Data (last 24 hrs): 08/25/20 20:34 Throat Culture & Sensitivity - Final NORMAL UPPER RESPIRATORY ALVERTO GROWN. <Dianne Roberts - Last Filed: 08/28/20 09:39> Assessment and Plan - Plan Assessment Colitis with leukocytosis CHUCK on CKD 4 Diabetes mellitus type 2-insulin dependent Hypertension Hyperlipidemia Plan Colitis with leukocytosis: IV Cipro Flagyl, clear liquid diet and advance as tolerated. Serial abdominal exam, daily labs. DVT prophylaxis heparin 5000 units subcutaneous twice daily. CHUCK on CKD 4: Renal function close to baseline was slightly worse, continue IV hydration overnight, recheck lab. Consult nephrology as necessary. Diabetes mellitus type 2-insulin dependent: A.c. HS Accu-Cheks, sliding scale insulin therapy. Hypertension: Obtain and continue home medications. Hyperlipidemia: Obtain and continue home medications. Discharge Plan: Home Plan to discharge in: 24 Hours - Advance Directives Does patient have a Living Will: No Does patient have a Durable POA for Healthcare: No - Code Status/Comfort Care Code Status Assessed: Yes (Full code) Critical Care: No Time Spent Managing Pts Care (In Minutes): 55 <Juan Da Silva - Last Filed: 08/26/20 00:24> Date of Service: 08/26/20 Agree with plan of care as mentioned. Patient is clinically doing well with no new complaints. Continue with antibiotic therapy and IV steroid therapy. Anticipate discharge over the next 48-72 hr. <Dianne Roberts - Last Filed: 08/28/20 09:39>
[2020-08-26] MEDS ORDERED: ONDANSETRON 4 MG/2 ML VIAL IV PRN (01:42)
[2020-08-26] MEDS ORDERED: MELATONIN 5 MG TABLET PO PRN (01:42)
[2020-08-26] MEDS: NA CHLORIDE 0.9% 1,000 ML IV SCH ×3 (01:42→21:43)
[2020-08-26] MEDS ORDERED: ACETAMINOPHEN 500 MG TAB PO PRN (01:42)
[2020-08-26] MEDS ORDERED: HYDROCODONE/APAP 5/325 MG TAB PO PRN (01:42)
[2020-08-26] MEDS: METRONIDAZOLE 500mg IVPB 500 MG/100 ML BAG IV SCH ×3 (01:42→16:41)
[2020-08-26 02:02] VITALS: BMI 43.8
[2020-08-26] MEDS ORDERED: CIPROFLOXACIN 400mg IV 400 MG/200 ML BAG IV ONE (02:49)
[2020-08-26] MEDS ORDERED: NA CHLORIDE 0.9% 1,000 ML ONE (02:55)
[2020-08-26] MEDS: PROMETHAZINE INJ 25 MG/ML AMP IV PRN ×5 (03:40→20:57)
[2020-08-26] MEDS: MEPERIDINE HCL 50 MG/ML IV PRN ×5 (03:40→20:58)
[2020-08-26] MEDS ORDERED: MEPERIDINE HCL 25 MG/ML SYR ONE ×3 (03:48→13:15)
[2020-08-26] MEDS ORDERED: PROMETHAZINE INJ 25 MG/ML AMP ONE ×3 (03:48→13:15)
[2020-08-26 05:31] LABS: Absolute Lymphocytes (CBC) 1.2 K/uL (0.7-4.9); Basophils % 1.1 % (0-1.3); Lymphocytes % 8.3 % (15.3-44.8); MPV 9.1 fL (7.6-11.3); RBC Red Blood Cell Count 3.45 M/uL (3.86-4.86)
[2020-08-26 05:46] LABS: Potassium 4.5 mmol/L (3.5-5.1)
[2020-08-26] MEDS: INSULIN -REGULAR HUMAN 50 UNIT/0.5 ML ML SQ SCH ×4 (07:30→21:00)
[2020-08-26] MEDS: HEPARIN 5000 UNIT/ML 1 ML VIAL SQ SCH ×2 (08:10→21:00)
[2020-08-26] MEDS ORDERED: HEPARIN 5000 UNIT/ML 1 ML VIAL ONE (08:20)
[2020-08-26] MEDS ORDERED: METRONIDAZOLE 500mg IVPB 500 MG/100 ML BAG IV ONE (08:21)
[2020-08-26] MEDS ORDERED: INFLUENZA VACCINE (for 3y+) 0.5 ML DOSE IMVAC ONE (09:00)
[2020-08-26] MEDS ORDERED: INSULIN -REGULAR HUMAN 50 UNIT/0.5 ML ML ONE ×2 (09:14→12:16)
--- NOTE | 2020-08-26 13:01 | RAD REPORT ---
EXAM DESCRIPTION: CT - Stone Protocol - 08/26/2020 6:40 am CLINICAL HISTORY: Back pain and flank pain with hematuria. COMPARISON: 03/20/2019 TECHNIQUE: CT scan of the abdomen and pelvis was performed without IV contrast. This exam was perfor med according to our departmental dose-optimization program, which includes automated exposure contro l, adjustment of the mA and/or kV according to patient size and/or use of iterative reconstruction te chnique. FINDINGS: The lung bases are clear. No pleural or pericardial effusions. There is no hiatal hernia. There has been a prior cholecystectomy. The liver, spleen, pancreas, adrenal glands, and kidneys are unremarkable. No hydronephrosis or urinary stones are seen. There is a 3.6 cm right ovarian cyst. The urinary bladder is unremarkable. There is mild wall thickening throughout the large bowel. The colon is fluid-filled, suggesting a jeanne rrheal illness. There has been a prior appendectomy. The stomach and small bowel are unremarkable. No free fluid or free air is evident. The aorta is normal caliber and contains atherosclerotic calcific ations. No abnormal body wall hernia. There are mild degenerative changes of the spine. IMPRESSION: 1. Finding suggestive of mild colitis with a diarrheal illness, which may be infectiou s or inflammatory in origin. 2. No hydronephrosis or urinary stones are seen. 3. 3.6 cm probably benign right ovarian cyst. Recommend follow-up pelvic US in 6-12 weeks. Reference: J Am Malena Radiol 2013;10:[id number] Electronically signed by: Bruce Manzo MD 08/25/2020 10:36 PM [employer] Due to temporary technical issues with the PACS/Fluency reporting system, reports are being signed by the in house radiologists without review as a courtesy to insure prompt reporting. The interpreting radiologist is fully responsible for the content of the report.
[2020-08-26] MEDS: CIPROFLOXACIN 400mg IV 400 MG/200 ML BAG IV SCH ×2 (23:32)
[2020-08-27] MEDS: METRONIDAZOLE 500mg IVPB 500 MG/100 ML BAG IV SCH ×3 (00:03→17:16)
[2020-08-27] MEDS: PROMETHAZINE INJ 25 MG/ML AMP IV PRN ×6 (01:01→21:37)
[2020-08-27] MEDS: MEPERIDINE HCL 50 MG/ML IV PRN ×6 (01:03→21:37)
[2020-08-27 04:27] LABS: Absolute Lymphocytes (CBC) 1.3 K/uL (0.7-4.9); Basophils % 0.7 % (0-1.3); Hematocrit 28.3 % (36.0-45.0); Lymphocytes % 11.9 % (15.3-44.8); MPV 9.3 fL (7.6-11.3); RBC Red Blood Cell Count 3.39 M/uL (3.86-4.86)
[2020-08-27 04:39] LABS: Albumin 1.8 g/dL (3.4-5.0); Bilirubin Total 0.2 mg/dL (0.2-1.0); Magnesium 1.9 mg/dL (1.8-2.4); Potassium 4.6 mmol/L (3.5-5.1); Protein, Total 6.1 g/dL (6.4-8.2)
[2020-08-27] MEDS: INSULIN -REGULAR HUMAN 50 UNIT/0.5 ML ML SQ SCH ×4 (07:30→21:00)
[2020-08-27] MEDS: HEPARIN 5000 UNIT/ML 1 ML VIAL SQ SCH ×2 (08:59→21:36)
[2020-08-27] MEDS: NA CHLORIDE 0.9% 1,000 ML IV SCH ×2 (13:39→17:42)
[2020-08-27] MEDS: CIPROFLOXACIN 400mg IV 400 MG/200 ML BAG IV SCH (23:50)
[2020-08-28] MEDS: MEPERIDINE HCL 50 MG/ML IV PRN ×3 (01:28→09:25)
[2020-08-28] MEDS: PROMETHAZINE INJ 25 MG/ML AMP IV PRN ×3 (01:30→09:25)
[2020-08-28] MEDS: METRONIDAZOLE 500mg IVPB 500 MG/100 ML BAG IV SCH ×2 (01:41→09:24)
[2020-08-28 03:18] VITALS: O2SAT 100
[2020-08-28] MEDS: NA CHLORIDE 0.9% 1,000 ML IV SCH ×2 (04:44→13:42)
[2020-08-28 05:59] LABS: Absolute Lymphocytes (CBC) 1.8 K/uL (0.7-4.9); Basophils % 1.2 % (0-1.3); Hematocrit 28.3 % (36.0-45.0); MPV 9.7 fL (7.6-11.3); RBC Red Blood Cell Count 3.36 M/uL (3.86-4.86)
[2020-08-28 06:09] LABS: Albumin 1.8 g/dL (3.4-5.0); Bilirubin Total 0.2 mg/dL (0.2-1.0); Potassium 4.7 mmol/L (3.5-5.1); Protein, Total 6.2 g/dL (6.4-8.2)
[2020-08-28] MEDS: INSULIN -REGULAR HUMAN 50 UNIT/0.5 ML ML SQ SCH ×2 (07:30→12:31)
[2020-08-28] MEDS: HEPARIN 5000 UNIT/ML 1 ML VIAL SQ SCH (09:00)
--- NOTE | 2020-08-28 09:43 | P.PN ---
Subjective Date of Service: 08/27/20 Patient has pain in her flank area. She has history of kidney stones. CT scan did not reveal any abnormal findings except for colitis and ovarian cyst. Anticipate discharge home tomorrow if she continues to remain stable Review of Systems 10-point ROS is otherwise unremarkable Physical Examination - Vital Signs Temperature: 96.9 F Blood Pressure: 170/70 Pulse: 64 Respirations: 18 Pulse Ox (%): 100 - Physical Exam General: Alert, In no apparent distress, Oriented x3 Respiratory: Clear to auscultation bilaterally, Normal air movement Cardiovascular: Regular rate/rhythm, Normal S1 S2, No murmurs Gastrointestinal: Normal bowel sounds, Soft and benign, Non-distended, Tenderness Musculoskeletal: No clubbing, No swelling, No tenderness Neurological: Sensation intact, Cranial nerves 3-12 intact - Studies Microbiology Data (last 24 hrs): 08/25/20 20:34 Throat Culture & Sensitivity - Final NORMAL UPPER RESPIRATORY ALVERTO GROWN. Medications List Reviewed: Yes Assessment & Plan - Problems (Diagnosis) (1) Acute colitis Current Visit: Yes Status: Acute (2) Back pain, chronic Current Visit: No Status: Acute (3) CKD (chronic kidney disease) Current Visit: No Status: Acute Qualifiers: Chronic kidney disease stage: stage 3 (moderate) (4) Depression Current Visit: No Status: Acute Qualifiers: Depression Type: major depressive disorder Major depression recurrence: single episode Active/Remission status: currently active Psychotic features: without psychotic features (5) Diabetes mellitus, type II, insulin dependent Onset Date: 11/06/15 Current Visit: No Status: Acute (6) Gastritis Current Visit: No Status: Acute (7) HTN (hypertension) Current Visit: No Status: Acute Qualifiers: Hypertension type: essential hypertension Qualified Code(s): I10 - Essential (primary) hypertension (8) Hyperlipidemia Current Visit: No Status: Acute Qualifiers: Hyperlipidemia type: mixed hyperlipidemia Qualified Code(s): E78.2 - Mixed hyperlipidemia (9) Morbid obesity Current Visit: No Status: Acute (10) UTI (urinary tract infection) Current Visit: No Status: Acute Qualifiers: Urinary tract infection type: acute cystitis Hematuria presence: without hematuria Qualified Code(s): N30.00 - Acute cystitis without hematuria - Plan Plan: 1. Continue with IV antibiotics 2. IV fluids 3. Pain control 4. Advanced diet as tolerated 5. Outpatient follow with GI for colonoscopy 6. GI and DVT prophylaxis Discharge Plan: Home Plan to discharge in: Greater than 2 days - Advance Directives Does patient have a Living Will: No Does patient have a Durable POA for Healthcare: No - Code Status/Comfort Care Code Status Assessed: Yes Code Status: Full Code Critical Care: No Time Spent Managing PTS Care (In Minutes): 35
[2020-08-28] MEDS ORDERED: INSULIN ASPART 20 UNIT SQ PRN (10:56)
[2020-08-28 13:17] VITALS: BP 169/78; TEMP 97.8
[2020-08-28] MEDS ORDERED: FUROSEMIDE 20 MG TABLET PO SCH (17:00)
[2020-08-28] MEDS ORDERED: HYDRALAZINE HCL 25 MG TABLET PO SCH (21:00)
[2020-08-29] MEDS ORDERED: INSULIN DEGLUDEC 60 UNIT SQ SCH (09:00)
[2020-08-29] MEDS ORDERED: KERATIN PO SCH (09:00)
[2020-08-29] MEDS ORDERED: HOME MED 1 EA UNK (Cyanocobalamin (Vitamin B-12) [Vitamin B12] 1 TAB) PO SCH (09:00)
[2020-08-29] MEDS ORDERED: BIOTIN PO SCH (09:00)
[2020-08-29] MEDS ORDERED: lisinopriL 20 MG TAB PO SCH (09:00)
[2020-08-29] MEDS ORDERED: NEBIVOLOL HCL 5 MG TAB PO SCH (09:00)
[2020-08-29] MEDS ORDERED: FERROUS SULFATE 325 MG TAB PO SCH (09:00)
[2020-09-04] MEDS ORDERED: HOME MED 1 EA UNK (Dulaglutide [Trulicity] 0.75 MG) SQ SCH (09:00)
== END 2020-08-28 13:52 | disposition home or self-care (01) | DRG 392 ==
LOC: ER 17:25 → ERHOLD 08-26 → 2ND 08-26 12:34
PROVIDERS: ADMIT Hospitalist; ATTEND Hospitalist
DX: A09 Infectious gastroenteritis and colitis, unspecified (principal); N18.4 Chronic kidney disease, stage 4 (severe); N17.9 Acute kidney failure, unspecified; Z68.41 Body mass index [BMI] 40.0-44.9, adult; N30.00 Acute cystitis without hematuria; E66.01 Morbid (severe) obesity due to excess calories; I12.9 Hypertensive chronic kidney disease with stage 1 through stage 4 chronic kidney disease, or unspecified chronic kidney disease; E11.22 Type 2 diabetes mellitus with diabetic chronic kidney disease; E78.5 Hyperlipidemia, unspecified; F32.89 Other specified depressive episodes; K29.70 Gastritis, unspecified, without bleeding; G89.29 Other chronic pain; M54.9 Dorsalgia, unspecified; N83.209 Unspecified ovarian cyst, unspecified side; Z88.5 Allergy status to narcotic agent; Z88.4 Allergy status to anesthetic agent; Z90.49 Acquired absence of other specified parts of digestive tract; Z89.512 Acquired absence of left leg below knee; Z89.511 Acquired absence of right leg below knee; Z79.4 Long term (current) use of insulin; Z20.828 Contact with and (suspected) exposure to other viral communicable diseases
CPT/HCPCS: 36415; 74176; 76377; 80048; 80053; 81003; 81015; 81025; 82947; 83605; 83735; 84145; 85025; 87040; 87070; 87081; 87804; 99285; J0696; J0744; J1644; J2175; J2550; J7030; U0003

== ENCOUNTER 2020-09-25 19:35 | Inpatient (IN) | payer BC ==
--- OUTSIDE RECORDS SUMMARY | 2020-09-25 19:40 | XMS REPORT | Continuity of Care Document ---
:1975 Author Organization [facility] t Address [address] [place] [address] [address] [place] [address] Care Team Providers Name Role Phone Bin PEARSON, S. Primary Care Physician Michael PEARSON Attending Clinician Doctor Unassigned, Name Attending Clinician Unavailable Pob1, Care Clinic Attending Clinician Unavailable Pob, Lab Main Attending Clinician Unavailable Zander Arias Attending Clinician Payers Payer Name Policy Type Policy Number Effective Date Expiration Date Emmett davis BLUE CROSS BLUE [id number] 2018 [facility] 00:00:00 [id number] /10/2017-PresentPP O Problems Condition Condition Condition Status Onset Resolution Last Treating Co mments Source Name Details Category Date Date Treatment Clinician Date Left upper Left upper Disease Active Overview : quadrant quadrant 07-05 Added Michael o pain pain 00:00: automatic n 00 ally from request for surgery [id number] Family Family Disease Active Overview: history of history of 07-05 Added An derso malignant malignant 00:00: automatic n neoplasm neoplasm 00 ally from of of request pancreas pancreas for surgery [id number] Diarrhea Diarrhea Disease Active Overview: 07-05 Added Anderso 00:00: automatic n 00 ally from request for surgery [id number] Family Family Disease Active Overview: history of history of 07-05 Added An derso cancer of cancer of 00:00: automatic n colon colon 00 ally from request for surgery [id number] Morbid Morbid Problem Active [facility] (severe) [...] Yuan lawanda below knee below knee l [facility] ent [facility] Acquired Acquired Diagnosis Active [facility] absence of 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 Memori a below knee below knee l [facility] Type 2 Type [address] [facility] diabetes diabetes [facility] Mixed Mixed Problem Active [facility] hyperlipid hyperlipid Sara kes - emia emia Memoria [facility] Hx of BKA Hx of BKA Problem Active [facility] Abdominal Abdominal Problem Active [facility] pain, pain, [facility] - unspecifie unspecifie Me moria d d l abdominal abdominal Outp ati location location ent Clinics Fatigue, Fatigue, Problem Active [facility] unspecifie unspecifie Sara kes - d type d type Memoria [facility] Body mass Body mass Diagnosis Active [facility] index index [facility] - (BMI) (BMI) Memoria 45.0-49.9, 45.0-49.9, l adult adult [facility] Depression Depression Problem Active [facility] with with [facility] - anxiety anxiety Memoria [facility] Acute UTI Acute UTI Diagnosis Active [facility] - [facility] Dietary Dietary Diagnosis Active [facility] surveillan surveillan Sara kes - ce and ce and Memoria counseling counseling [facility] Allergies, Adverse Reactions, Alerts Allergy Allergy Status [...] S t Reaction Available [facility] Family History Family Member Diagnosis Comments Start [...] Maria T Pen 00:00: 00:00 Yuan lawanda Maud Maud 00 :00 l Outpati ent Clinics hydrALAZINE [...] [facility] [place] 3 [place] 3 Yes Jammie [address] [facility] [address] [facility] Fish Oil Fish Oil Yes Ajmmie [address] [facility] Procedures This patient has no known procedures. Encounters Start End Encounter Admission Attending Care Care Encounter Source Date/Time Date/Time Type Type Clinicians Facility Department ID 2020-09-16 2020-09-[facility] [place] [id number] 08:17:43 08:47:43 ne Visit [facility] [id number] [facility] 4.2.7.2.686 [id number] 2020-08-19 2020-08-[address]948.188 [id number] 00:00:00 00:00:00 [facility] [id number] [facility] 42.7.2.686 [id number] 2020-07-22 2020-07-[address]327[address]235 [id number] 00:00:00 00:00:00 [facility] [id number] [facility] 4.2.7.2.686 [id number] 2020-07-15 2020-07-[address]840.114 [id number] 00:00:00 00:00:00 [facility] [id number] [facility] 42.7.2.686 [id number] 2020-06-27 2020-06-27 Orders Doctor [address].114 [id number] 00:00:00 00:00:00 Only Unassigned, ERNIE [id number] [facility] 4.2.7.2.686 [id number] 2020-06-23 2020-06-23 Patient Michael, SALLYIT [id number] 00:00:00 00:00:00 Secure Msg Tyra Hollins [facility] [id number] CLINICS 4.2.7.2.686 [id number] 2020-05-13 2020-05-[address] [facility] 1.2.840.114 [id number] 07:21:59 07:51:59 ne Visit Tyra Hollins [facility] [id number] [facility] 4.2.7.2.686 [id number] 2020-05-09 2020-05-09 Urgent Pob1, Acute [facility] 1.2.840.114 [id number] 14:21:03 14:41:03 Care Care [facility] [id number] [place] 4.2.7.2.686 Professio [id number] nal [address] 2020-05-01 2020-05-01 Patient Michael, SALLY [id number] 00:00:00 00:00:00 Secure Msg Tyra Hollins [facility] [id number] [facility] 4.2.7.2.686 [id number] 2020-04-25 2020-04-25 Shallot Packer Subhash, Adc [facility] 1.2.840.114 [id number] 15:11:37 15:26:37 Visit Lab Main [place] 350.1.13.10 [place] 4.2.7.2.686 Professio [id number] formerly [facility] [address] Building 2020-04-25 2020-04-25 Orders Doctor RANJAN 1.2.840.114 [id number] 00:00:00 00:00:00 Only Unassigned, ERNIE [id number] [facility] 4.2.7.2.686 [id number] 2020-04-24 2020-04-24 Telephone Michael, SALLY 1.2.840.114 [id number] 00:00:00 00:00:00 Tyra Hollins [facility] [id number] CLINICS 4.2.7.2.686 [id number] 2020-04-23 2020-04-[address] [facility] 1.2.840.114 [id number] 00:00:00 00:00:00 [facility] [id number] [facility] 4.2.7.2.686 [id number] 2020-04-18 2020-04-[address] [facility] [id number] 00:00:00 00:00:00 [facility] [id number] [facility] 4.2.7.2.686 [id number] 2020-03-07 2020-03-07 [facility] [id number] [facility] 14:40:00 14:40:00 [facility] Medicine Outpati ent Clinics 2019-09-10 2019-09-10 [facility] [id number] 15:35:00 15:35:00 [facility] Medicine Outpati ent Clinics 2019-08-29 2019-08-29 [facility] [id number] 11:00:00 11:00:00 [facility] Medicine Outpati ent Clinics 2019-08-15 2019-08-15 [facility] [id number] [facility] 13:40:00 13:40:00 [facility] Medicine Outpati ent Clinics 2019-02-09 2019-02-09 [facility] [id number] [facility] 10:00:00 10:00:00 [facility] Medicine Medicine Outpati ent Clinics 2018-10-06 2018-10-06 [facility] [id number] 13:30:00 13:30:00 [facility] Medicine Outpati ent Clinics 2018-10-05 2018-10-05 [facility] [id number] 11:52:00 11:52:00 [facility] Medicine Outpati ent Clinics 2018-09-20 2018-09-20 [facility] [id number] 14:45:00 14:45:00 [facility] Outpati ent Clinics 2018-07-13 2018-07-13 [facility] [id number] 09:52:00 09:52:00 [facility] Outpati ent Clinics 2018-06-06 2018-06-06 [facility] [id number] 10:14:00 10:14:00 [facility] Medicine Outpati ent Clinics 2018-06-05 2018-06-05 [facility] [id number] 14:31:00 14:31:00 [facility] Outpati ent Clinics 2018-06-02 2018-06-02 [facility] [id number] 21:51:00 21:51:00 [facility] Outpati ent Clinics 2018-06-02 2018-06-02 [facility] [id number] 11:00:00 11:00:00 [facility] Results Test Description Test Time [...] 86 Unit/L 45-117 N Completed by Nursing: [id number] 17:04:00 Test Item Value Reference Range Interpretation [...] andrew yby method. Completed by Nursing: NOPROTHROMBIN [id number] 17:03:00 Test Item Value Reference Range Interpretation Comments PT PATIENT (test code = PTP) 10.8 SECONDS 9.3-12.9 N INTERNATIONAL NORMAL RATIO 0.94 INR Unit 0.8-1.2 N (test code = INR) THROMBOPLASTIN TIME [id number] 17:03:00 Test Item Value Reference Range Interpretation Comments THROMBOPLASTIN TIME PARTIAL 28.7 SECONDS 26-35 N (test code = PTT) CBC W/O [id number] 16:35:00 Test Item Value Reference Range Interpretation [...] 10.40 fL 7.0-10.5 N MPV) CHEMISTRY 8 [id number] 16:30:00 Test Item Value Reference Range Interpretation [...] 58-135 L code = GFRBED) CHEMISTRY 8 [id number] 16:30:00 Test Item Value Reference Range Interpretation [...] L (test code = GFRBED) TROPONIN I [id number] 16:28:00 Test Item Value Reference Range Interpretation Comments TROPONIN I RAPID 0.00 ng/mL 0.00-0.08 N - The use o f serial (test code = sampling and te sting TROPIRAP) protocol is a recommended pra ctice- An elevated tro ponin level alone is often not sufficient for diagnosis of my ocardial infarction. GLUCOSE BEDSIDE [id number] 16:12:00 Test Item Value Reference Range Interpretation Comments GLUCOSE BEDSIDE TESTING (test code 283 mg/dL 70-110 H = GLUBED) - CT HEAD/BRAIN W/O [id number] 16:02:00 [facility] [place] [facility] 1975 Age/S: 43 / F [id number] Unit #: [id number] Loc: [place] [address] Phys: Robyn Moffett MD Acct: [id number] Dis Date: Status: REG ER PHONE #: [phone] Exam Date: 07/07/2019 6172 FAX #: Reason: Code Str raine EXAMS: CPT: [id number] CT HEAD/BRAIN W/O CONT 82218 EXAMINATION: - CT HEAD/BRAIN W/O CONT. LOCATION: [...] PAGE 1 Signed Report (CONTINUED)Name: INGRIS MCLEAN [facility] : 1975 Age/S: 43 / F [id number] Unit #: [id number] Loc: [place] [address] Phys: Robyn Moffett MD Acct: [id number] Dis Date: Status: REG ER PHONE #: [phone] Exam Date: 07/07/2019 9615 FAX #: Reason: Code Stroke EXAMS: CPT: [id number] CT HEAD/BRAIN W/O CONT 24238 <Continued> CC: Fani Colon BILL POSTER INSTALLER; Robyn Moffett MD Technologist:MARY HENLEY, RT(R)(CT)(MR) CTDI: DLP: Trnscb Date/Time: 07/07/2019 (5086) [email or web address] Orig Print D/T: S: 07/07/2019 (9589) PAGE 2 Signed Report
--- OUTSIDE RECORDS SUMMARY | 2020-09-25 19:41 | XMS REPORT | Summary of Care ---
:1975 Author Organization [facility] Address [address] [place] [id number] Care Team Providers Name Role Phone Bon Avery Primary Care Provider MD Elijah Unavailable Reason for Visit Reason Comments Error Encounter Details Date Type Department Care Team Description 09/16/2020 Telemedicine Visit [facility] MichaelTyra leigh CANCELL ATION (Primary Nephrology- MD Dx) [place] [id number] [phone] [place], [place] [phone] (Fax) [phone] Allergies Active Allergy Reactions Severity Noted Date Comments Ciprofloxacin Itching, Rash High 02/10/2009 That within t aking a large dosage. Ketamine Hallucinations 02/09/2019 Morphine Hallucinations 12/27/2016 Amlodipine Swelling 04/02/2019 documented as of this encounter (statuses as of 09/16/2020) Medications Medication Sig Dispensed Refills Start Date End Date Status blood sugar diagnostic Monitor BG 6 times a day 180 Strip 12 Active (FREESTYLE LITE STRIPS) stripIndications: Diabetes mellitus type 2 with complications, uncontrolled Insulin Safety 100 Each 0 08/23/2012 Acti ve [place], Disp, (NOVOFINE AUTOCOVER) 30 x 1/3 " NdleIndications: Diabetes mellitus type 2 with complications, uncontrolled Insulin [place], 4 (four) times 1 Box 3 05/18/2013 [...] 0 Active B12/folic (IRON 100 PLUS ORAL) hydrALAZINE 50 mg Take 1 tablet by 180 tablet 3 05/13/2020 Active tabletIndications: mouth 2 (two) Essential times daily. hypertension, benign furosemide 20 mg Take 1 tablet by 60 tablet 3 07/24/2020 Active tabletIndications: mouth every Essential morning and hypertension, benign, evening. CKD stage G3b/A3, GFR 30-44 and albumin creatinine ratio >300 mg/g, Diabetes mellitus type 2 with complications, uncontrolled, Essential hypertension, Nephrotic range proteinuria, Hyperkalemia lisinopriL 20 mg Take 1 tablet by 30 tablet 3 08/22/2020 Active tabletIndications: mouth daily. 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 PCOS (polycystic ovarian syndrome) 12/22/2011 S/P BKA (below knee amputation) 12/22/2011 Neuropathy 12/22/2011 Diabetic foot ulcer 12/22/2011 documented as of this encounter (statuses as of 09/16/2020) Social History Tobacco Use Types Packs/Day Years Used Date Never Smoker Smokeless Tobacco: Never Used Alcohol Use Drinks/Week oz/Week Comments No 0 Standard drinks or equivalent 0.0 Sex Assigned at Date Recorded Not on file documented as of this encounter Last Filed Vital Signs Not on filedocumented in this encounter Progress Notes Tyra Rodriguez MD - 09/16/2020 10:30 AM CSTPt would like to reschedule the appointment as she has not had her labs done yet. documented in this encounter Plan of Treatment Health Maintenance Due Date Last Done Comments [...] filedocumented in this encounter Visit Diagnoses Diagnosis CANCELLATION - Primary documented in this encounter Insurance Payer Benefit Plan Subscriber ID Effective Dates Phone Address Type / Group [facility] [id number] 2014-Hermann [phone] [address] PPO/POS [facility] [id number] [place] [address] [phone] [id number] (Work) documented as of this encounter
[2020-09-25 21:21] LABS: Absolute Lymphocytes (CBC) 2.8 K/uL (0.7-4.9); Basophils % 0.9 % (0-1.3); Hematocrit 35.7 % (36.0-45.0); Lymphocytes % 21.4 % (15.3-44.8); MPV 9.1 fL (7.6-11.3); RBC Red Blood Cell Count 4.29 M/uL (3.86-4.86)
[2020-09-25] MEDS ORDERED: PROMETHAZINE INJ 25 MG/ML AMP ONE ×2 (21:26→23:23)
[2020-09-25] MEDS ORDERED: MEPERIDINE HCL 50 MG/ML ONE ×2 (21:26→23:18)
[2020-09-25 22:25] LABS: Protime INR 0.98
[2020-09-25 22:53] LABS: ALT/SGPT 9 U/L (12-78); AST/SGOT 9 U/L (15-37); Albumin 2.4 g/dL (3.4-5.0); Alkaline Phosphatase 109 U/L (45-117); BUN Blood Urea Nitrogen 42 mg/dL (7-18); Bicarbonate 22 mmol/L (21-32); Bilirubin Direct < 0.1 mg/dL (0-0.2); Bilirubin Total 0.2 mg/dL (0.2-1.0); Glucose Level 283 mg/dL (74-106); NT PRO-BNP 7802 pg/mL (<125); Potassium 5.5 mmol/L (3.5-5.1); Protein, Total 7.3 g/dL (6.4-8.2); Sodium Level 137 mmol/L (136-145); Troponin (Emerg Dept Use Only) < 0.02 ng/mL (0.0-0.045)
--- NOTE | 2020-09-25 23:40 | EDPHYS ---
Physician Documentation [facility] Name: Keiry Umaña Age: 44 yrs Sex: Female : 1975 Arrival Date: 09/25/2020 Time: 19:37 Bed 20 Private MD: ED Physician Joe Vyas HPI: 09/25 20:41 This 44 yrs old Female presents to ER via Ambulatory with complaints of jmm Shortness Of Breath, left arm swelling. 20:41 The patient has shortness of breath at rest. Onset: The symptoms/episode began/occurred jmm acutely, today. The patient's shortness of breath is aggravated by nothing, is alleviated by nothing. Associated signs and symptoms: Pertinent positives: left arm swelling. 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 patient states the pain has intensified with through the day. . 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 aj1 Historical: - Allergies: 20:06 KETAMINE; aj1 20:06 Morphine; aj1 - Home Meds: 20:06 aspirin 81 mg Oral chew 1 tab once daily [Active]; Bystolic 5 mg Oral tab 1 tab once aj1 daily [Active]; D-3 50 chol 50,000iu 1x week [Active]; high cholesterol medication [Active]; levimer 50 units twice a day [Active]; lisinopril Oral [Active]; metformin 500 mg Oral tab 1 tab 2 times per day [Active]; Novolog 15 units three times a day [Active]; Vitamin Oral tab 1 tab once daily [Active]; Trulicity subcutaneous [Active]; - PMHx: 20:06 bilateral foot amputee; Diabetes - IDDM; High Cholesterol; Hypertension; aj1 - Immunization history:: Flu vaccine is not up to date. - Social history:: Smoking status: Patient/guardian denies using tobacco. ROS: 23:35 Constitutional: Negative for fever, chills, and weight loss, Cardiovascular: Negative jmm for chest pain, palpitations, and edema. 23:35 Respiratory: Positive for shortness of breath. 23:35 MS/extremity: Positive for pain. 23:35 All other systems are negative. Exam: 23:35 Constitutional: This is a well developed, well nourished patient who is awake, alert, jmm and in no acute distress. Head/Face: atraumatic. Eyes: EOMI, no conjunctival erythema appreciated ENT: Moist Mucus Membranes Neck: Trachea midline, Supple Chest/axilla: Normal chest wall appearance and motion. Cardiovascular: Regular rate and rhythm. No edema appreciated Respiratory: Normal respirations, no respiratory distress appreciated Abdomen/GI: Non distended, soft Back: Normal ROM Skin: General appearance color normal MS/ Extremity: Moves all extremities, no obvious deformities appreciated, no edema noted to the lower extremities Neuro: Awake and alert, normal gait Psych: Behavior is normal, Mood is normal, Patient is cooperative and pleasant Vital Signs: 20:02 BP 167 / 113; Pulse 85; Resp 24; Temp 97.3(TE); Pulse Ox 100% on R/A; Weight 124.74 kg aj1 (R); Height 5 ft. 7 in. (170.18 cm) (R); Pain 7/10; 21:29 BP 177 / 70; Pulse 76; Resp 18 S; Pulse Ox 100% on R/A; ca1 22:30 BP 182 / 86; Pulse 70; Resp 18; Pulse Ox 99% ; aj1 23:30 BP 177 / 82; Pulse 80; Resp 18; Pulse Ox 100% ; aj1 09/26 00:30 BP 175 / 77; Pulse 82; Resp 18; Pulse Ox 99% on R/A; aj1 01:30 BP 162 / 88; Pulse 75; Resp 18; Pulse Ox 97% on R/A; aj1 02:30 BP 143 / 62; Pulse 74; Resp 18; Temp 97.3; Pulse Ox 100% on R/A; aj1 09/25 20:02 Body Mass Index 43.07 (124.74 kg, 170.18 cm) aj MDM: 09/25 20:41 Patient medically screened. sonali 23:38 Data reviewed: vital signs, nurses notes. Counseling: I had a detailed discussion with martin the patient and/or guardian regarding: the historical points, exam findings, and any diagnostic results supporting the discharge/admit diagnosis, lab results, the need for further work-up and treatment in the hospital. ED course: I discussed the patient with Jaron Arroyo whom accepted the patient to Dr. Rosa's service. . 09/25 20:46 Order name: Basic Metabolic Panel; Complete Time: 23:02 [facility] 09/25 20:46 Order name: CBC with Diff; Complete Time: 21:43 [facility] 09/25 20:46 Order name: LFT's; Complete Time: 23:02 [facility] 09/25 20:46 Order name: Magnesium; Complete Time: 23:02 [facility] 09/25 20:46 Order name: NT PRO-BNP; Complete Time: 23:02 [facility] 09/25 20:46 Order name: PT-INR; Complete Time: 22:34 [facility] 09/25 20:46 Order name: Troponin (emerg Dept Use Only); Complete Time: 23:02 [facility] 09/25 20:46 Order name: XRAY Chest (1 view) [facility] 09/25 20:46 Order name: US Extremity Venous Unilateral Ltd [facility] 09/26 01:31 Order name: Glucose, Ancillary Testing [facility] 09/26 03:43 Order name: Troponin I [facility] 09/26 07:57 Order name: Glucose, Ancillary Testing [facility] 09/26 08:48 Order name: Troponin I [facility] 09/26 11:39 Order name: Glucose, Ancillary Testing [facility] 09/25 20:46 Order name: EKG; Complete Time: 20:46 [facility] 09/25 20:46 Order name: Cardiac monitoring; Complete Time: 21:26 [facility] 09/25 20:46 Order name: EKG - Nurse/Tech; Complete Time: 21:26 [facility] 09/25 20:46 Order name: IV Saline Lock; Complete Time: 21:13 [facility] 09/25 20:46 Order name: Labs collected and sent; Complete Time: 21:13 [facility] 09/25 20:46 Order name: O2 Per Protocol; Complete Time: 21:13 [facility] 09/25 20:46 Order name: O2 Sat Monitoring; Complete Time: 21:13 [facility] 09/25 21:30 Order name: Labs - recollect needed: Blue Top, and Green Top; Complete Time: 22:17 09/26 13:23 Order name: US EDOR Administered Medications: 21:15 Drug: Promethazine 12.5 mg Route: IVP; Site: right antecubital; ca1 21:17 Drug: Demerol 50 mg {Note: rass 0.} Route: IVP; Site: right antecubital; ca1 09/26 01:45 Drug: Insulin Regular Human 10 units {Co-Signature: aj1 (Daisy Gonzalez RN).} Route: sg IVP; Site: right antecubital; 01:45 Drug: Kayexalate 60 grams Route: PO; aj1 Disposition: 09/25/20 23:39 Hospitalization ordered by Jered Rosa for Observation. Preliminary diagnosis are Acute on Chronic Kidney Failure, Radiculopathy, cervical region. - Bed requested for Telemetry/MedSurg (observation). - Status is Observation. sv - Condition is Stable. - Problem is new. - Symptoms are unchanged. Addendum: 09/28/2020 06:48 Co-signature as Attending Physician, Joe Vyas MD I agree with the assessment and c gong plan of care. Signatures: Dispatcher [employer] Daisy Avalos, RN RN aj1 Shawanda Zimmer RN Amina Love RN Akin Romero RN Joe Corona MD MD cha Mickail, Joel, PA PA [facility] Mell Knox Cheryl, RN RN ca1 Daisy Gonzalez RN aj1 Corrections: (The following items were deleted from the chart) 09/26 01:12 12 23:39 Hospitalization Ordered by Jered Rosa for Observation. Preliminary mw diagnosis is Acute on Chronic Kidney Failure; Radiculopathy, cervical region. Bed requested for Telemetry/MedSurg (observation). Status is Observation. Condition is Stable. Problem is new. Symptoms are unchanged. [facility] 09/26 13:05 01:12 09/25/2020 23:39 Hospitalization Ordered by Jered Rosa for Observation. eb Preliminary diagnosis is Acute on Chronic Kidney Failure; Radiculopathy, cervical region. Bed requested for [facility] ER HOLD. Status is Observation. Condition is Stable. Problem is new. Symptoms are unchanged. mw 13:56 13:05 09/25/2020 23:39 Hospitalization Ordered by Jered Rosa for Observation. sv Preliminary diagnosis is Acute on Chronic Kidney Failure; Radiculopathy, cervical region. Bed requested for Telemetry/MedSurg (observation). Status is Observation. Condition is Stable. Problem is new. Symptoms are unchanged. eb
--- NOTE | 2020-09-25 23:40 | ER ---
Nurse's Notes [facility] Name: Keiry Umaña Age: 44 yrs Sex: Female : 1975 Arrival Date: 09/25/2020 Time: 19:37 Bed 20 Private MD: Diagnosis: Acute on Chronic Kidney Failure;Radiculopathy, cervical region Presentation: 09/25 20:02 Chief complaint: Patient states: "About 3:00 today I noticed my hand felt funny and I aj1 looked down and it looked really swollen, a couple hours later I started having pain in it and now it hurts like hell. Its a shooting pain going up my arm. This afternoon I started feeling short of breath, like I can't breathe when I do anything at all.". Coronavirus screen: Client denies travel out of the [place] in the last 14 days. At this time, the client does not indicate any symptoms associated with coronavirus-19. Ebola Screen: Patient denies travel to an Ebola-affected area in the 21 days before illness onset. Initial Sepsis Screen: Does the patient meet any 2 criteria? RR > 20 per min. No. Patient's initial sepsis screen is negative. Does the patient have a suspected source of infection? Yes: Other: hand swelling. Risk Assessment: Do you want to hurt yourself or someone else? Patient reports no desire to harm self or others. Onset of symptoms was September 25, 2020. 20:02 Method Of Arrival: Ambulatory aj1 20:02 Acuity: CHERYL 3 aj1 Triage Assessment: 20:06 General: Appears in no apparent distress. uncomfortable, Behavior is calm, cooperative, aj1 appropriate for age. Pain: Complains of pain in left hand Pain currently is 7 out of 10 on a pain scale. Neuro: Level of Consciousness is awake, alert, obeys commands, Oriented to person, place, time, situation. Cardiovascular: Patient's skin is warm and dry. Respiratory: Reports shortness of breath on exertion Airway is patent Respiratory effort is even, unlabored, Respiratory pattern is regular, symmetrical, Onset: The symptoms/episode began/occurred today, the patient has mild shortness of breath. Musculoskeletal: Swelling present in left hand. 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 aj1 Historical: - Allergies: 20:06 KETAMINE; aj1 20:06 Morphine; aj1 - Home Meds: 20:06 aspirin 81 mg Oral chew 1 tab once daily [Active]; Bystolic 5 mg Oral tab 1 tab once aj1 daily [Active]; D-3 50 chol 50,000iu 1x week [Active]; high cholesterol medication [Active]; levimer 50 units twice a day [Active]; lisinopril Oral [Active]; metformin 500 mg Oral tab 1 tab 2 times per day [Active]; Novolog 15 units three times a day [Active]; Vitamin Oral tab 1 tab once daily [Active]; Trulicity subcutaneous [Active]; - PMHx: 20:06 bilateral foot amputee; Diabetes - IDDM; High Cholesterol; Hypertension; aj1 - Immunization history:: Flu vaccine is not up to date. - Social history:: Smoking status: Patient/guardian denies using tobacco. Screenin:30 Abuse screen: Denies threats or abuse. Denies injuries from another. Nutritional ca1 screening: No deficits noted. Tuberculosis screening: No symptoms or risk factors identified. Fall Risk IV access (20 points). Gait- Impaired (20 pts.). Assessment: 20:30 General: Appears in no apparent distress. comfortable, Behavior is calm, cooperative, ca1 appropriate for age. Pain: Complains of pain in left hand Pain does not radiate. Pain currently is 9 out of 10 on a pain scale. Is continuous. Neuro: Level of Consciousness is awake, alert, obeys commands, Oriented to person, place, time, situation. Cardiovascular: Heart tones S1 S2 present Capillary refill < 3 seconds Patient's skin is warm and dry. Rhythm is sinus rhythm. Respiratory: Reports shortness of breath Airway is patent Respiratory effort is even, unlabored, Respiratory pattern is regular, symmetrical, Breath sounds are clear bilaterally. GI: Abdomen is round non-distended, Bowel sounds present X 4 quads. Abd is soft and non tender X 4 quads. Reports nausea. : No signs and/or symptoms were reported regarding the genitourinary system. EENT: No signs and/or symptoms were reported regarding the EENT system. Derm: Skin is intact, is healthy with good turgor, Skin is pink, warm \\T\\ dry. Musculoskeletal: Amputation of BKA, bilateral Swelling present in left hand. 21:29 Reassessment: Patient appears in no apparent distress at this time. Patient and/or ca1 family updated on plan of care and expected duration. Pain level reassessed. Patient is alert, oriented x 3, equal unlabored respirations, skin warm/dry/pink. 22:30 Reassessment: Patient and/or family updated on plan of care and expected duration. Pain aj1 level reassessed. General: Appears in no apparent distress. comfortable, Behavior is calm, cooperative, appropriate for age. Pain: Complains of pain in left hand Pain does not radiate. Neuro: Level of Consciousness is awake, alert, obeys commands, Oriented to person, place, time, situation. Cardiovascular: Heart tones S1 S2 present Patient's skin is warm and dry. Rhythm is sinus rhythm. Respiratory: Reports shortness of breath Airway is patent Respiratory effort is even, unlabored, Respiratory pattern is regular, symmetrical, Breath sounds are clear bilaterally. GI: Abdomen is round non-distended, Bowel sounds present X 4 quads. : No signs and/or symptoms were reported regarding the genitourinary system. Derm: No signs and/or symptoms reported regarding the dermatologic system. Skin is pink, warm \\T\\ dry. normal. Musculoskeletal: No signs and/or symptoms reported regarding the musculoskeletal system. Amputation of right foot and left foot. Swelling present in left hand. 23:30 Reassessment: Patient appears in no apparent distress at this time. No changes from aj1 previously documented assessment. Patient and/or family updated on plan of care and expected duration. Pain level reassessed. Patient is alert, oriented x 3, equal unlabored respirations, skin warm/dry/pink. 09/26 00:06 Reassessment: IRENE Gentile at bedside to evaluate patient. aj1 00:30 Reassessment: Patient appears in no apparent distress at this time. No changes from aj1 previously documented assessment. Patient and/or family updated on plan of care and expected duration. Pain level reassessed. Patient is alert, oriented x 3, equal unlabored respirations, skin warm/dry/pink. 01:30 Reassessment: Patient appears in no apparent distress at this time. No changes from aj1 previously documented assessment. Patient and/or family updated on plan of care and expected duration. Pain level reassessed. Patient is alert, oriented x 3, equal unlabored respirations, skin warm/dry/pink. 02:30 Reassessment: Patient appears in no apparent distress at this time. No changes from aj1 previously documented assessment. Patient and/or family updated on plan of care and expected duration. Pain level reassessed. Patient is alert, oriented x 3, equal unlabored respirations, skin warm/dry/pink. Vital Signs: 09/25 20:02 BP 167 / 113; Pulse 85; Resp 24; Temp 97.3(TE); Pulse Ox 100% on R/A; Weight 124.74 kg aj1 (R); Height 5 ft. 7 in. (170.18 cm) (R); Pain 7/10; 21:29 BP 177 / 70; Pulse 76; Resp 18 S; Pulse Ox 100% on R/A; ca1 22:30 BP 182 / 86; Pulse 70; Resp 18; Pulse Ox 99% ; aj1 23:30 BP 177 / 82; Pulse 80; Resp 18; Pulse Ox 100% ; aj1 09/26 00:30 BP 175 / 77; Pulse 82; Resp 18; Pulse Ox 99% on R/A; aj1 01:30 BP 162 / 88; Pulse 75; Resp 18; Pulse Ox 97% on R/A; aj1 02:30 BP 143 / 62; Pulse 74; Resp 18; Temp 97.3; Pulse Ox 100% on R/A; aj1 09/25 20:02 Body Mass Index 43.07 (124.74 kg, 170.18 cm) aj ED Course: 09/25 19:37 Patient arrived in ED. am2 20:05 Triage completed. aj1 20:06 Arm band placed on Patient placed in waiting room, Patient notified of wait time. aj1 20:25 Micheline Mejia, RN is Primary Nurse. ca1 20:30 Patient has correct armband on for positive identification. Placed in gown. Bed in low ca1 position. Call light in reach. Side rails up X2. threat monitoring analyst on. Pulse ox on. NIBP on. Warm blanket given. 20:36 Giig Clark PA is PHCP. martin 20:36 Joe Vyas MD is Attending Physician. martin 21:11 Initial lab(s) drawn, by oh, sent to lab. Inserted saline lock: 20 gauge in right ca1 antecubital area, using aseptic technique. Blood collected. 21:19 XRAY Chest (1 view) In Process Unspecified. EDMS 22:23 Report given to CHERI Villa. ca1 22:40 US Extremity Venous Unilateral Ltd In Process Unspecified. EDMS 23:39 Jered Rosa is Hospitalizing Provider. [facility] 09/26 03:35 Patient admitted, IV remains in place. aj1 03:35 No provider procedures requiring assistance completed. aj1 10:42 COVID swab sent to lab. mh5 Administered Medications: 09/25 21:15 Drug: Promethazine 12.5 mg Route: IVP; Site: right antecubital; ca1 21:17 Drug: Demerol 50 mg {Note: rass 0.} Route: IVP; Site: right antecubital; ca1 09/26 01:45 Drug: Insulin Regular Human 10 units {Co-Signature: penny1 (Daisy Gonzalez RN).} Route: sg IVP; Site: right antecubital; 01:45 Drug: Kayexalate 60 grams Route: PO; aj1 Outcome: 09/25 23:39 Decision to Hospitalize by Provider. [facility] 09/26 03:35 Admitted to ER Hold. Please see [facility] for further documentation. aj1 Condition: good Discharge instructions given to patient, Instructed on the need for admit, Demonstrated understanding of instructions. 13:56 Patient left the ED. sv Signatures: Dispatcher [employer] Daisy Avalos, CHERI RN aj1 Shawanda Zimmer RN RN sv Gay, Steven, RN RN Gigi Clark PA PA Talisha Landeros [facility] Janell Hudson Cheryl, RN RN ca1 Daisy Gonzalez RN aj1
[2020-09-26] MEDS ORDERED: INSULIN -REGULAR HUMAN 50 UNIT/0.5 ML ML ONE ×3 (01:49→11:44)
[2020-09-26] MEDS ORDERED: SOD POLYSTYREN SUL 15 GM/60 ML UCUP ONE (01:50)
[2020-09-26] MEDS ORDERED: ONDANSETRON 4 MG/2 ML VIAL IV PRN (02:20)
[2020-09-26] MEDS ORDERED: GLUCAGON 1 MG/VIAL IM PRN (02:20)
[2020-09-26] MEDS ORDERED: ACETAMINOPHEN 500 MG TAB PO PRN (02:20)
[2020-09-26] MEDS ORDERED: HYDRALAZINE HCL 20 MG/ML VIAL IV PRN (02:20)
[2020-09-26] MEDS ORDERED: NA CHLORIDE 0.9% 1,000 ML IV SCH (02:20)
[2020-09-26] MEDS ORDERED: FENTANYL CITR 100 MCG/2 ML IV PRN ×2 (02:20→08:51)
[2020-09-26] MEDS ORDERED: D50W 25 GM/50 ML SYRINGE IV PRN (02:20)
[2020-09-26] MEDS ORDERED: FENTANYL CITR 100 MCG/2 ML ONE ×2 (02:39→09:46)
[2020-09-26] MEDS ORDERED: ONDANSETRON 4 MG/2 ML VIAL ONE (02:39)
--- NOTE | 2020-09-26 02:41 | P.HP ---
Certification for Inpatient Patient admitted to: Observation With expected LOS: <2 Midnights Patient will require the following post-hospital care: None Practitioner: I am a practitioner with admitting privileges, knowledge of patient current condition, hospital course, and medical plan of care. Services: Services provided to patient in accordance with Admission requirements found in Title 42 Section 412.3 of the Code of Federal Regulations <Randi Arroyoshua - Last Filed: 09/26/20 02:36> Patient History Date of Service: 09/26/20 Primary Care Provider: Bennie Reason for admission: CHUCK, Hyperkalemia, HTN Urgency History of Present Illness: This is a 44-year-old female with a history of hypertension, diabetes, and CKD that presented to the emergency room today for sudden onset shortness of breath and left hand swelling followed by pain to the left arm. Patient stated that she was seeing spots in her vision and was also dizzy. Patient was worked up in the emergency room and found to have a potassium of 5.5 with a BUN of 42 and a creatinine of 3.26. Last creatinine that the emergency room had was about a month ago showing her creatinine at that time to be 2.8. Patient had 13,000 white cell count but no other acute findings. Troponin was negative. Ultrasound of the left upper extremity was negative for DVT. EKG and chest x- ray stable. Medicine was consulted at that time for acute changes in her renal function along with hyperkalemia and suspected of a hypertensive urgency. 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 Mother -: Heart disease, Diabetes, Stroke Notes: - Social History Smoking Status: Never smoker Smoking therapy provided: No Alcohol use: No CD- Drugs: No Caffeine use: Yes Place of Residence: Home <Obinna Arroyo - Last Filed: 09/26/20 02:36> Date of Service: 09/26/20 <humberto hardin - Last Filed: 09/27/20 13:15> Allergies ketamine Allergy (Severe, Verified 03/19/19 22:45) Anaphylaxis morphine Allergy (Intermediate, Verified 11/28/17 00:51) Anaphylaxis Home Medications: Insulin Aspart [Novolog Flexpen] 20 unit SQ AC PRN 02/04/16 Biotin/Keratin [Biotin Plus Keratin Tablet] 1 tab PO DAILY 05/23/20 Cyanocobalamin (Vitamin B-12) [Vitamin B12] 1 tab PO DAILY 05/23/20 Hydralazine HCl 50 mg PO BID 05/23/20 Insulin Degludec [Tresiba] 60 units SQ DAILY 05/23/20 Dulaglutide [Trulicity] 0.75 mg SQ EVERY 7TH DAY 08/26/20 Furosemide 20 mg PO BID 08/26/20 Lisinopril [Zestril] 20 mg PO DAILY 08/26/20 Nebivolol HCl [Bystolic] 1 tab PO DAILY 09/26/20 Review of Systems General: Unremarkable Eyes: As per HPI ENT: Unremarkable Respiratory: Shortness of Breath Cardiovascular: Unremarkable Gastrointestinal: Unremarkable Genitourinary: Unremarkable Musculoskeletal: Arm Pain, Other (Swelling of left and) Integumentary: Unremarkable Neurological: Unremarkable Lymphatics: Unremarkable <Obinna Arroyo - Last Filed: 09/26/20 02:36> Physical Examination - Vital Signs Temperature: 97.3 F Blood Pressure: 167/113 Pulse: 85 Respirations: 24 Pulse Ox (%): 100 (Room air) - Physical Exam General: Alert, In no apparent distress, Oriented x3, Cooperative HEENT: Normocephalic, PERRLA, Mucous membr. moist/pink, EOMI Neck: Supple, 2+ carotid pulse no bruit, JVD not distended, No Thyromegaly Respiratory: Clear to auscultation bilaterally, Normal air movement Cardiovascular: No edema, Normal pulses, Regular rate/rhythm, Normal S1 S2, No gallops, No rubs, No murmurs Capillary refill: <2 Seconds Gastrointestinal: Normal bowel sounds, Soft and benign, Non-distended, No ascites, No tenderness, No masses, No rebound, No guarding, Other (Obese) Musculoskeletal: Other (Bilateral BKA. Left dorsal hand with 1+ pitting edema. No erythema noted. Patient did have excoriations to nails. No pulse deficit or sensation deficit. Patient able to move extremity and had full range of motion. No pain in the hand or arm at this time post being medicated in the er) Integumentary: No rashes, No breakdown, No significant lesion, No tenderness/swelling, No erythema, No warmth, No cyanosis Neurological: Normal gait, Normal speech, Normal strength at 5/5 x4 extr, Normal tone, Sensation intact, Cranial nerves 3-12 intact, Normal affect Lymphatics: No axilla or inguinal lymphadenopathy - Studies Laboratory Data (last 24 hrs) 09/25/20 22:15: PT 11.6, INR 0.98 09/25/20 22:15: Sodium 137, Potassium 5.5 H, BUN 42 H, Creatinine 3.26 H, Glucose 283 H, Magnesium 2.0, Total Bilirubin 0.2, AST 9 L, ALT 9 L, Alkaline Phosphatase 109 09/25/20 21:11: WBC 13.0 H, Hgb 12.0, Hct 35.7 L, Plt Count 306 <Obinna Arroyo - Last Filed: 09/26/20 02:36> Assessment and Plan - Problems (Diagnosis) (1) Hyperkalemia Current Visit: Yes Status: Acute (2) Hypertensive urgency Current Visit: Yes Status: Acute (3) Localized swelling on left hand Current Visit: Yes Status: Acute (4) Acute renal insufficiency Current Visit: Yes Status: Acute (5) CKD (chronic kidney disease) Current Visit: Yes Status: Chronic Qualifiers: Chronic kidney disease stage: stage 4 (severe) Qualified Code(s): N18.4 - Chronic kidney disease, stage 4 (severe) (6) Diabetes mellitus Current Visit: Yes Status: Chronic Qualifiers: Diabetes mellitus type: type 1 Diabetes mellitus complication status: with kidney complications Diabetes mellitus complication detail: with chronic kidney disease Chronic kidney disease stage: stage 4 (severe) Qualified Code(s): E10.22 - Type 1 diabetes mellitus with diabetic chronic kidney disease; N18.4 - Chronic kidney disease, stage 4 (severe) - Plan 1. Patient admitted to the floor for further monitoring for her hypertensive urgency, acute renal insufficiency, and hyperkalemia 2. Labs will be drawn in the morning to reassess hyperkalemia me after being treated in the emergency room 3. Blood pressure in the rest of her vital signs will be monitored. Hydralazine will be given every 6 hr as needed to maintain blood pressure under a systolic of 160 or diastolic of 110 4. Will continue to monitor the swelling of the left hand although ultrasound was negative and she had no pulse deficit or sensation deficit. No signs of c ellulitis at this time. She had no constricting bands around her hand. Will add CT of cervical spine to make sure it is not radicular in nature. 5. Nephrology has been consulted for the acute renal insufficiency that has increased past her baseline. Discharge Plan: Home Plan to discharge in: 24 Hours - Advance Directives Does patient have a Living Will: No Does patient have a Durable POA for Healthcare: No - Code Status/Comfort Care Code Status Assessed: Yes Code Status: Full Code Critical Care: No Time Spent Managing Pts Care (In Minutes): 70 <Obinna Arroyo - Last Filed: 09/26/20 02:36> - Problems (Diagnosis) (1) Acute worsening of stage 3 chronic kidney disease Current Visit: Yes Status: Acute (2) Peripheral edema Current Visit: Yes Status: Acute (3) Hyperkalemia Current Visit: Yes Status: Acute (4) Hypertensive urgency Current Visit: Yes Status: Acute (5) Diabetes mellitus, type II, insulin dependent Onset Date: 11/06/15 Current Visit: No Status: Acute Physician Review: Patient Assessed, Agree with Above Assessment and Plan Physician Review Additional Text: Peripheral edema Hyperkalemia Acute on chronic kidney disease stage 3. Plan: Nephrology consult. Patient given IV fluid in the ED. Hold IV fluid given peripheral edema. <humberto hardin - Last Filed: 09/27/20 13:15>
[2020-09-26] MEDS ORDERED: NA CHLORIDE 0.9% 1,000 ML ONE (04:27)
[2020-09-26] MEDS ORDERED: MEPERIDINE HCL 25 MG/ML SYR IV PRN (04:39)
[2020-09-26] MEDS: PROMETHAZINE INJ 25 MG/ML AMP IV PRN ×3 (04:55→20:34)
[2020-09-26] MEDS ORDERED: PROMETHAZINE INJ 25 MG/ML AMP ONE ×2 (05:06→09:45)
[2020-09-26] MEDS ORDERED: MEPERIDINE HCL 25 MG/ML SYR ONE (05:06)
[2020-09-26 05:10] VITALS: BMI 43.0
--- NOTE | 2020-09-26 07:07 | RAD REPORT ---
EXAM DESCRIPTION: US - Extremity Venous Uni Ltd - 09/25/2020 10:40 pm CLINICAL HISTORY: Left arm pain and swelling COMPARISON: None. TECHNIQUE: Real-time sonographic evaluation of the left upper extremity deep venous systems was perf ormed. FINDINGS: Normal compressibility, flow augmentation, phasic flow and spontaneous flow are identified in the left upper extremity deep venous system. No intraluminal filling defects seen. Internal jugul ar and subclavian veins are normal as well. IMPRESSION: No DVT in the left upper extremity.
[2020-09-26] MEDS: INSULIN -REGULAR HUMAN 50 UNIT/0.5 ML ML SQ SCH ×4 (07:30→20:34)
[2020-09-26] MEDS ORDERED: KETOROLAC 30 MG/ML INJ IV PRN (08:50)
[2020-09-26] MEDS ORDERED: ASPIRIN EC 81 MG TAB PO ONE (08:50)
[2020-09-26] MEDS: ASPIRIN EC 81 MG TAB PO SCH (09:00)
[2020-09-26] MEDS ORDERED: PROMETHAZINE INJ 25 MG/ML AMP IV ONE (09:40)
--- NOTE | 2020-09-26 11:38 | P.CNS ---
Date of Consult: 09/26/20 Reason for Consult: CHUCK , hyperkalmeia Primary Care Provider: Bennie Chief Complaint: CHUCK, Hyperkalemia, HTN Urgency History of Present Illness: HPI 44-year-old female with a history of hypertension, diabetes with neuropathy , CKD III , hyperkalemia following emr implementation specialist at [facility], and HTN pt presented for Lt arm swelling symptoms started suddenly, with headache , and change un vision she saw her emr implementation specialist few months ago , started on lasix for Stomp edema in RE potassium of 5.5 with a BUN of 42 and a creatinine of 3.26. Last creatinine that the emergency room had was about a month ago showing her creatinine at that time to be 2.8. denied NSAID intake Review of Systems: Head and Neck: No red eye. No ear pain. GI: No nausea, no vomiting. : No polyuria, no dysuria, no hematuria. Enterprise Account Executive: Not applicable. Respiratory: No shortness of breath. Cardiovascular: No chest pain. , Lt arm swelling Endocrine: No polydipsia. Skin: No rash. Neuro: AAOX3 Musculoskeletal: neck pain . Physical exam general: AAOX3, NAD , obese Neck; Supple, No elevated JVD hear: RRR, normal S1,2 no murmur or rub Chest: CTAB, no rlaes or wheezes Abdomen: Soft , Nt Extremities b/L hand swelling, Lt >rt , B/l BKA A/p progressive CKD IV pt stated she is CKD III , but labs last month cr 2.8 will order renal US and UA and UPC CKD due to DM avoid NSAID will sop IVF and give lasix HTN cont current meds DM as per primary team Lt arm swelling DVT rolled out will dc IVF and give lasix X1 total time spent 30min Allergies ketamine Allergy (Severe, Verified 03/19/19 22:45) Anaphylaxis morphine Allergy (Intermediate, Verified 11/28/17 00:51) Anaphylaxis Home Medications: Insulin Aspart [Novolog Flexpen] 20 unit SQ AC PRN 02/04/16 Biotin/Keratin [Biotin Plus Keratin Tablet] 1 tab PO DAILY 05/23/20 Cyanocobalamin (Vitamin B-12) [Vitamin B12] 1 tab PO DAILY 05/23/20 Hydralazine HCl 50 mg PO BID 05/23/20 Insulin Degludec [Tresiba] 60 units SQ DAILY 05/23/20 Dulaglutide [Trulicity] 0.75 mg SQ EVERY 7TH DAY 08/26/20 Furosemide 20 mg PO BID 08/26/20 Lisinopril [Zestril] 20 mg PO DAILY 08/26/20 Nebivolol HCl [Bystolic] 1 tab PO DAILY 09/26/20 - Past Medical/Surgical History Diabetic: Yes -: Hypertension -: Hyperlipidemia -: IDDM -: Depression -: stage 3 kidney disease -: Appendectomy -: Cholecystectomy -: Bilateral BKAs Psychosocial/ Personal History: Patient lives at home with her family and 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 Mother Medical History: Heart disease, Diabetes, Stroke Notes: - Social History Smoking Status: Never smoker Alcohol use: No CD- Drugs: No Caffeine use: Yes Place of Residence: Home Physical Examination Temp Pulse Resp BP Pulse Ox 97 F 82 16 148/58 H 100 09/26/20 04:40 09/26/20 04:40 09/26/20 05:25 09/26/20 04:40 09/26/20 05:25 Laboratory Data (last 24 hrs) 09/25/20 22:15: PT 11.6, INR 0.98 09/25/20 22:15: Sodium 137, Potassium 5.5 H, BUN 42 H, Creatinine 3.26 H, Glucose 283 H, Magnesium 2.0, Total Bilirubin 0.2, AST 9 L, ALT 9 L, Alkaline Phosphatase 109 09/25/20 21:11: WBC 13.0 H, Hgb 12.0, Hct 35.7 L, Plt Count 306
[2020-09-26] MEDS ORDERED: FUROSEMIDE 40 MG/4 ML VIAL IV ONE (11:40)
[2020-09-26] MEDS ORDERED: FUROSEMIDE 40 MG/4 ML VIAL ONE (12:15)
--- NOTE | 2020-09-26 13:21 | RAD REPORT ---
EXAM DESCRIPTION: US - Renal Ultrasound-Complete - 09/26/2020 1:05 pm CLINICAL HISTORY: Acute renal insufficiency COMPARISON: May 2020 FINDINGS: The right kidney measures 10 cm with an increased echotexture. The left kidney measures 10 cm with an increased echotexture. Hydronephrosis is not seen. No gross abnormality of bladder is seen IMPRESSION: Mildly increased renal echotexture consistent with parenchymal disease
--- NOTE | 2020-09-26 13:54 | P.PN ---
Date of Service: 09/26/20 Patient seen and examined. She is complaining of pain and more swelling of the left upper extremity. Venous Doppler of the extremities negative for DVT. No erythema to suggest infection. Patient has worsening kidney function. Her upper extremity swelling could be secondary to edema. Plan: Pain medication as needed. Patient seen by nephrology. IV fluid discontinued. Treat edema and hyperkalemia with IV Lasix. Monitor renal function.
[2020-09-26 18:02] LABS: Urine Appearance CLEAR; Urine Bilirubin NEGATIVE (NEG); Urine Blood 3+ (NEG); Urine Color YELLOW; Urine Glucose 1+ (NEG); Urine Protein 3+ (NEG); Urine Specific Gravity 1.015 (1.005-1.030); Urine Urobilinogen 0.2 mg/dL (0.2-1.0); Urine pH 5.5 (5.0-7.0)
[2020-09-26 18:04] LABS: Urine Microscopic Reflex ORDER UMIC
[2020-09-26 18:10] LABS: Urine Protein/Creatinine Ratio 7.11 ratio (<0.15)
[2020-09-26 18:12] LABS: Urine Bacteria <20 /HPF (<20); Urine Mucus 1+ /HPF (NONE SEEN); Urine RBC 20-50 /HPF (NONE SEEN)
[2020-09-26] MEDS ORDERED: FENTANYL CITR 100 MCG/2 ML IV ONE (20:21)
[2020-09-27] MEDS: PROMETHAZINE INJ 25 MG/ML AMP IV PRN ×4 (00:45→15:17)
[2020-09-27] MEDS: FENTANYL CITR 100 MCG/2 ML IV PRN ×3 (04:54→15:17)
[2020-09-27 05:45] LABS: Absolute Lymphocytes (CBC) 1.3 K/uL (0.7-4.9); Basophils % 0.6 % (0-1.3); Hematocrit 34.1 % (36.0-45.0); Lymphocytes % 9.8 % (15.3-44.8); MPV 8.9 fL (7.6-11.3); RBC Red Blood Cell Count 4.05 M/uL (3.86-4.86)
[2020-09-27 06:08] LABS: Potassium 5.6 mmol/L (3.5-5.1)
[2020-09-27] MEDS ORDERED: SOD POLYSTYREN SUL 15 GM/60 ML UCUP PO ONE (09:04)
[2020-09-27 09:38] VITALS: O2SAT 98
[2020-09-27] MEDS: ASPIRIN EC 81 MG TAB PO SCH (09:39)
[2020-09-27] MEDS: INSULIN -REGULAR HUMAN 50 UNIT/0.5 ML ML SQ SCH ×3 (09:40→17:53)
[2020-09-27] MEDS ORDERED: FUROSEMIDE 40 MG/4 ML VIAL IV SCH (10:00)
--- NOTE | 2020-09-27 10:04 | P.PN ---
Subjective Date of Service: 09/27/20 Primary Care Provider: Bennie Chief Complaint: CHUCK, Hyperkalemia, HTN Urgency Patient has no new complaint. She states her arm swelling and pain are much better. She has hyperkalemia. Serum creatinine is trending down. Physical Examination - Vital Signs Temperature: 97.5 F Blood Pressure: 124/71 Pulse: 80 Respirations: 16 Pulse Ox (%): 99 - Physical Exam General: Alert, In no apparent distress HEENT: Atraumatic, EOMI, Sclerae nonicteric Neck: Supple, JVD not distended Respiratory: Normal air movement Cardiovascular: Regular rate/rhythm, Normal S1 S2, Edema (Bilateral upper extremities, worse on the left.) Gastrointestinal: Soft and benign, Non-distended, No tenderness Musculoskeletal: Swelling (Left upper extremity) Integumentary: No rashes, No erythema Neurological: Normal strength at 5/5 x4 extr Assessment And Plan - Current Problems (Diagnosis) (1) Acute worsening of stage 3 chronic kidney disease Current Visit: Yes Status: Acute (2) Peripheral edema Current Visit: Yes Status: Acute (3) Hyperkalemia Current Visit: Yes Status: Acute (4) Hypertensive urgency Current Visit: Yes Status: Acute (5) Diabetes mellitus, type II, insulin dependent Onset Date: 11/06/15 Current Visit: No Status: Acute - Plan Nephrology input appreciated. Serum creatinine is trending down. Patient getting intermittent IV lasix. She was complaining of a lot of pain in the left upper extremity which was being managed with fentanyl. She reports improvement in her symptoms. Nephrology to follow. Kayexalate for hyperkalemia. Sodium bicarb for metabolic acidosis.
[2020-09-27 13:36] LABS: Potassium 4.9 mmol/L (3.5-5.1)
[2020-09-27] MEDS ORDERED: SODIUM BICARB 325 MG TAB PO SCH ×2 (14:00→21:00)
--- NOTE | 2020-09-27 14:00 | EKG ---
Test Date: 2020-09-26 Test Time: 08:21:25 Manager House: WILMER MEASUREMENT RESULTS: Intervals: Rate: 69 DE: 130 QRSD: 86 QT: 452 QTc: 484 Jud: P: 47 DE: 130 QRS: 29 T: 96 INTERPRETIVE STATEMENTS: Normal sinus rhythm T wave abnormality, consider lateral ischemia Prolonged QT Abnormal ECG Compared to ECG 09/25/2020 21:20:59 T-wave abnormality now present Possible ischemia now present ST (T wave) deviation no longer present Electronically Signed On 09-27-20 13:58:35 EXTERNAL RELATIONS MANAGER by Mehdi Damico
--- NOTE | 2020-09-27 14:01 | EKG ---
Test Date: 2020-09-25 Test Time: 21:20:59 Staff Research Associate: CASA MEASUREMENT RESULTS: Intervals: Rate: 97 TN: 132 QRSD: 90 QT: 376 QTc: 477 Rittman: P: 48 TN: 132 QRS: 36 T: 77 INTERPRETIVE STATEMENTS: Normal sinus rhythm Nonspecific ST and T wave abnormality Prolonged QT Abnormal ECG Compared to ECG 12/21/2017 12:25:58 ST (T wave) deviation now present Electronically Signed On 09-27-20 13:58:47 LEARNING CENTER COORDINATOR by Mehdi Damico
[2020-09-27] MEDS ORDERED: HYDROCODONE/APAP 5/325 MG TAB PO PRN (16:36)
[2020-09-27 17:53] VITALS: BP 144/63; TEMP 97.3
--- NOTE | 2020-09-27 18:12 | P.DS ---
Admission Date: 09/26/20 Discharge Date: 09/27/20 Primary Care Provider: Bennie Disposition: ROUTINE DISCHARGE Discharge Condition: FAIR Reason for Admission: CHUCK, Hyperkalemia, HTN Urgency - Problems (1) Acute worsening of stage 3 chronic kidney disease Status: Acute (2) Peripheral edema Status: Acute (3) Hyperkalemia Status: Acute (4) Hypertensive urgency Status: Acute (5) Diabetes mellitus, type II, insulin dependent Onset Date: 11/06/15 Status: Acute Brief History of Present Illness: 44-year-old woman with a history of chronic kidney disease and hypertension presented to the emergency department with a complaint of sudden onset shortness of breath. She also reported progressive painful swelling of the left upper extremity. The patient was hypertensive with her systolic blood pressure as high as 186 in the ED. Her serum creatinine was also elevated above her baseline. Venous Doppler of the left upper extremity did not show any DVT. Fly marie had hyperkalemia with a potassium of 6.5 he was given Kayexalate and insulin in the ED. She was admitted for further management. Hospital Course: Patient admitted to the medical floor. She was treated for pain with IV opioid. Had renal ultrasound done which did not show any obstructive uropathy. CT cervical spine was also done due to the left upper extremity swelling and it was unremarkable, no stenosis. Patient was seen and evaluated by nephrology. She was treated with IV Lasix for peripheral edema. Her blood pressure improved during the hospital stay. Patient also noted to have metabolic acidosis which was treated with sodium bicarb replacement. Her renal function did not improve much. Patient decided not to stay in the hospital any further to continue treatment. Dr. Engel was informed about patient not wanting to stay for further treatment who okayed patient's demand. Patient was then discharged with oral bicarb replacement. Her Lasix was resumed on discharge without any dose change. Vital Signs/Physical Exam: Temp Pulse Resp BP Pulse Ox 97.3 F 82 16 144/63 H 99 09/27/20 16:00 09/27/20 16:00 09/27/20 16:00 09/27/20 16:00 09/27/20 16:00 General: Alert, In no apparent distress Neck: JVD not distended Respiratory: Clear to auscultation bilaterally, Normal air movement Cardiovascular: Regular rate/rhythm, Normal S1 S2, Edema (Bilateral upper extremities, worse on the left.) Gastrointestinal: Soft and benign, Non-distended Integumentary: No rashes, No erythema Neurological: Other (Nonfocal.) Laboratory Data at Discharge: WBC 13.3 K/uL (4.3-10.9) H 09/27/20 05:29 Hgb 11.5 g/dL (12.0-15.0) L 09/27/20 05:29 Hct 34.1 % (36.0-45.0) L 09/27/20 05:29 Plt Count 305 K/uL (152-406) 09/27/20 05:29 PT 11.6 SECONDS (9.5-12.5) 09/25/20 22:15 INR 0.98 09/25/20 22:15 Sodium 140 mmol/L (136-145) 09/27/20 13:01 Potassium 4.9 mmol/L (3.5-5.1) 09/27/20 13:01 BUN 49 mg/dL (7-18) H 09/27/20 13:01 Creatinine 3.02 mg/dL (0.55-1.3) H 09/27/20 13:01 Glucose 271 mg/dL (74-106) H 09/27/20 13:01 Magnesium 2.0 mg/dL (1.8-2.4) 09/25/20 22:15 Total Bilirubin 0.2 mg/dL (0.2-1.0) 09/25/20 22:15 AST 9 U/L (15-37) L 09/25/20 22:15 ALT 9 U/L (12-78) L 09/25/20 22:15 Alkaline Phosphatase 109 U/L (45-117) 09/25/20 22:15 Troponin I < 0.02 ng/mL (0.0-0.045) 09/26/20 08:10 Home Medications: Insulin Aspart [Novolog Flexpen] 20 unit SQ AC PRN 02/04/16 Biotin/Keratin [Biotin Plus Keratin Tablet] 1 tab PO DAILY 05/23/20 Cyanocobalamin (Vitamin B-12) [Vitamin B12] 1 tab PO DAILY 05/23/20 Hydralazine HCl 50 mg PO BID 05/23/20 Insulin Degludec [Tresiba] 60 units SQ DAILY 05/23/20 Dulaglutide [Trulicity] 0.75 mg SQ EVERY 7TH DAY 08/26/20 Furosemide 20 mg PO BID 08/26/20 Nebivolol HCl [Bystolic] 1 tab PO DAILY 09/26/20 Codeine/APAP [Tylenol W/Codeine #3 tab] 1 tab PO Q4H PRN #30 tab 09/27/20 Sodium Bicarbonate 650 mg PO BID #60 tablet 09/27/20 New Medications: Sodium Bicarbonate 650 mg PO BID #60 tablet Codeine/APAP [Tylenol W/Codeine #3 tab] 1 tab PO Q4H PRN #30 tab PRN Reason: Pain Scale 5-7 (Moderate) Diet: ADA Activity: Ad francie Followup: NONE,NONE [Primary Care Provider] - Gail Anne MD [ACTIVE - CAN ADMIT] - 1 Week Time spent managing pt's care (in minutes): 35
--- NOTE | 2020-09-28 13:21 | RAD REPORT ---
EXAM DESCRIPTION: CT - C Spine Wo Con - 09/26/2020 6:38 am CLINICAL HISTORY: The patient is 44 years old and is Female; Left hand swelling with pain to left ar m TECHNIQUE: Axial computed tomography images of the cervical spine without intravenous contrast. Sa gittal and coronal reformatted images were created and reviewed. This CT exam was performed using o ne or more of the following dose reduction techniques: automated exposure control, adjustment of th e mA and/or kV according to patient size, and/or use of iterative reconstruction technique. COMPARISON: No relevant prior studies available. FINDINGS: VERTEBRAE: Straightening of the normal cervical curvature is present. The vertebral mulu dy heights and alignment are maintained. There is no acute fracture. DISCS/SPINAL CANAL/NEURAL FORAMINA: The intervertebral disc spaces are maintained. No spinal peter l stenosis. SOFT TISSUES: The soft tissues are normal. IMPRESSION: Straightening of the normal cervical curvature is present. Findings may be secondary t o patient position versus muscle spasm. Electronically signed by: Misa Estrella MD 09/26/2020 5:11 AM MERGERS AND ACQUISITIONS CONSULTANT Due to temporary technical issues with the PACS/Fluency reporting system, reports are being signed by the in house radiologists without review as a courtesy to insure prompt reporting. The interpreting radiologist is fully responsible for the content of the report.
--- NOTE | 2020-09-28 14:00 | PN ---
Date of Progress Note: 09/27/2020 Chief Complaint: Acute kidney injury on chronic kidney disease associated with hyperkalemia, metabol ic acidosis, and hypertensive urgency. History Of Present Illness: The patient is a 44-year-old woman with history of hypertension, diabete s mellitus with diabetic nephropathy, and chronic kidney disease, stage 3 advancing to stage IV. She presented to the hospital because of left arm swelling. She was found to have uncontrolled hyperten michelle, hyperkalemia and metabolic acidosis. Previously, creatinine baseline was ranging from 2.4 to 2 .8. The patient was found to have elevated creatinine up to 3.26, BUN 42, potassium 5.5, and bicarbo juan was dropping to 18. The patient was started on sodium bicarbonate tablet and she was taking ang iotensin receptor elena in view of hyperkalemia. She received Kayexalate to treat hyperkalemia. S he was instructed about low-potassium diet. Review of Systems: Denies PND or orthopnea. Physical Examination: Lungs: Diminished breath sounds at bases. HEART: S1, S2. ABDOMEN: Soft, benign. EXTREMITIES: Slight edema in lower extremity. Impression And Plan: Diabetes mellitus with renal manifestation, acute on chronic kidney injury, hyp ertensive urgency. The patient will continue low-sodium diet. Angiotensin receptor elena is on ho ld because of hyperkalemia. The patient will be treated with sodium bicarbonate tablets for metaboli c acidosis. The patient insisted to be discharged home and she refused to stay in the hospital. Danie al ultrasound was done to rule out obstructive uropathy. The patient had nonoliguric urine output. Renal ultrasound did not show obstructive uropathy, mildly increased renal echotexture consistent wit h medical renal disease and chronic kidney disease. The patient instructed about avoid of nonsteroid al anti-inflammatory medication, which may need to hyperkalemia and worsening of the renal function. The patient will be instructed about diet with potassium limitation intake as well adequate p.o. flu id intake to prevent volume depletion and worsening of the renal function. She was evaluated for lef t upper extremity swelling. She has venous Doppler done and DVT in the left upper extremity was iden tified. She did not have deep vein thrombosis. 1.Hypertension. Blood pressure overall improved with by mouth medication. 2.The patient is to follow up with her primary construction millwright as soon as possible and she refused to s urbano in the hospital for further evaluation and treatment. BRENDA/MODL Voice ID: [id number] Report ID: [id number]
--- NOTE | 2020-09-28 16:58 | RAD REPORT ---
EXAM DESCRIPTION: RAD - Chest Single View - 09/25/2020 9:19 pm CLINICAL HISTORY: Shortness of breath, left arm pain TECHNIQUE: Single frontal view of the chest is submitted. COMPARISON: None available for comparison FINDINGS: Heart: The cardiothoracic silhouette is within normal limits. Lungs: No focal consolidation. Mediastinum: Unremarkable Pleura: No appreciable effusion. No pneumothorax. Bones: Multilevel spondylosis. No acute fracture. Upper abdomen: Unremarkable IMPRESSION: No acute disease. Electronically signed by: Casandra Childs MD 09/25/2020 10:47 PM CANE PACKER Due to temporary technical issues with the PACS/Fluency reporting system, reports are being signed by the in house radiologists without review as a courtesy to insure prompt reporting. The interpreting radiologist is fully responsible for the content of the report.
== END 2020-09-27 19:34 | disposition home or self-care (01) | DRG 683 ==
LOC: ER 19:35 → ERHOLD 09-26 00:46 → OBSVTOIN 09-26 00:46 → 2ND 09-26 13:19
PROVIDERS: ADMIT Internal Medicine; ATTEND Internal Medicine
DX: N17.9 Acute kidney failure, unspecified (principal); Z68.41 Body mass index [BMI] 40.0-44.9, adult; E87.2 Acidosis; E87.5 Hyperkalemia; N18.4 Chronic kidney disease, stage 4 (severe); I12.9 Hypertensive chronic kidney disease with stage 1 through stage 4 chronic kidney disease, or unspecified chronic kidney disease; E66.9 Obesity, unspecified; E11.22 Type 2 diabetes mellitus with diabetic chronic kidney disease; E11.40 Type 2 diabetes mellitus with diabetic neuropathy, unspecified; I16.0 Hypertensive urgency; R22.9 Localized swelling, mass and lump, unspecified; Z88.4 Allergy status to anesthetic agent; Z88.5 Allergy status to narcotic agent; Z79.82 Long term (current) use of aspirin; Z79.4 Long term (current) use of insulin; Z79.899 Other long term (current) drug therapy; Z90.49 Acquired absence of other specified parts of digestive tract; Z20.828 Contact with and (suspected) exposure to other viral communicable diseases
CPT/HCPCS: 36415; 71045; 72125; 76770; 80048; 80076; 81003; 81015; 82570; 82947; 83735; 83880; 84156; 84484; 85025; 85610; 93005; 93971; 96374; 96375; 99285; J1940; J2175; J2405; J2550; J3010; J7030; U0002

== ENCOUNTER 2021-04-19 23:20 | Observation (INO) | payer BC ==
--- OUTSIDE RECORDS SUMMARY | 2021-04-19 23:23 | XMS REPORT | Continuity of Care Document ---
:1975 Author Organization [facility] t Address [address] [place] [address] [address]. [address] [place] [address] Care Team Providers Name Role Phone Bin PEARSON, S. Primary Care Physician Michael PEARSON Attending Clinician Qian Walton MD Attending Clinician Emilia PEARSON Attending Clinician Payers Payer Name Policy Type Policy Number Effective Date Expiration Date S ryan BLUE CROSS BLUE [id number] 2018 MD Jovani [place] P[place] 00:00:00 [id number] /10/2017-PresentPP O Problems Condition Condition Condition Status Onset Resolution Last Treating Co mments Source Name Details Category Date Date Treatment Clinician Date Left upper Left upper Disease Active Overview : quadrant quadrant 07-05 Formattin And erso pain pain 00:00: g of this n 00 note might be different from the original. Added automatic ally from request for surgery [id number] Family Family Disease Active Overview: history of history of 07-05 Formattin Anderso malignant malignant 00:00: g of this n neoplasm neoplasm 00 note of of might be pancreas pancreas different from the original. Added automatic ally from request for surgery [id number] Diarrhea Diarrhea Disease Active Overview: 07-05 Noahсветлана Rodriguezlazaro 00:00: g of this n 00 note might be different from the original. Added automatic ally from request for surgery [id number] Family Family Disease Active Overview: history of history of 07-05 Denae Ernandez cancer of cancer of 00:00: g of this n colon colon 00 note might be different from the original. 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 Yuan lawanda below knee below knee l [facility] Acquired Acquired Diagnosis Active [facility] absence of 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 Memori a below knee below knee l [facility] Type 2 Type [address] [facility] diabetes diabetes [facility] Mixed Mixed Problem Active [facility] hyperlipid hyperlipid Sara kes - emia emia Memoria [facility] Hx of BKA Hx of BKA Problem Active [facility] Abdominal Abdominal Problem Active [facility] pain, pain, [facility] - unspecifie unspecifie Me moria d d l abdominal abdominal Outp ati location location ent Clinics Fatigue, Fatigue, Problem Active [facility] unspecifie unspecifie Sara kes - d type d type [facility] Body mass Body mass Diagnosis Active [facility] index index [facility] - (BMI) (BMI) Memoria 45.0-49.9, 45.0-49.9, l adult adult [facility] Depression Depression Problem Active [facility] with with [facility] - anxiety anxiety Mem[facility] Acute UTI Acute UTI Diagnosis Active [facility] Dietary Dietary Diagnosis Active [facility] surveillan surveillan Sara kes - ce and ce and Memoria counseling counseling l [facility] Allergies, Adverse Reactions, Alerts Allergy Allergy Status Severity Reaction(s) Onset Inactive Treating Comm ents Source Name Type Date Date Clinician morphine DA Active [facility] [place] [facility] ketamine DA [facility] [place] [facility] morphine DA Active [facility] [place] [facility] MORPHINE Adverse Active Info Not [facility] Reaction Available [facility] Family History Family Member Diagnosis Comments Start Date Stop Date Source Natural brother -Colon cancer Natural brother -Melanoma Michael on Natural brother -Thoracic or Lung MD Vyas Natural brother -Unknown cancer MD Qian garcia Natural father -Pancreatic cancer MD Vyas Paternal grandmother -Breast cancer MD Vyas Social History Social Habit Start Date Stop Date Quantity Comments Source Tobacco use and 2019-07-10 2019-07-10 Never used MD Rodriguez on exposure 00:00:00 00:00:00 Alcohol intake 2019-07-10 2019-07-10 Lifetime MD Awais gerard 00:00:00 00:00:00 non-drinker (finding) Sex Ass[birth year] At [birth year] F MD Rodriguez on 00:00:00 00:00:00 Smoking Status Start Date Stop Date Source Never smoker MD Vyas Medications Ordered Filled Start Stop Current Ordering Indication Dosage Frequency Signature Comments Components Source Medication Medication Date Date Medication? Clinician (SIG) Name Name Ben Contreras 2020- No Jammie one daily [facility] Starter Starter 03-07-28 Millender times 7 [facility] - pack pack 00:00: 00:00 days, then Memori a 00 :00 bid, then l 2 am and 1 Outpati pm and ent then 2 bid Clinics Ciprofloxac Ciprofloxac 2020- No Jammie [address] [facility] in [...] Maria T Pen 00:00: 00:00 Yuan lawanda [facility] 00 :00 l Outpati ent Clinics hydrALAZINE [...] Insulin) 100 unit/mL (3 mL) insulin pen Levemir Levemir Yes Jammie as [facility] [...] [facility] Out[facility] Clinics [place] 3 Yes Jammie [address] [facility] Fish Oil Fish Oil Yes Jammie [address] Millender [facility] NovoFine NovoFine Yes Jammie as [facility] [...] (Smoking morning Yuan lawanda Det) Det) l [facility] Ciprofloxac Ciprofloxac Yes Jammie [address] [facility] [address] in HCl in HCl [facility] l [facility] ent Clinics Bystolic Bystolic Yes Jammie [address] [facility] Lisinopril Lisinopril Yes Jammie [address] [facility] Yes Jammie [address] Vitamins Vitamins Millender in evening [facility] ent Clinics Biotin Plus Biotin Plus Yes Jammie not [facility] Keratin Keratin Millender defined L [facility] Ketoconazol Ketoconazol Yes Jammie [address] [facility] e e Millender applicatio Luke s - n to Memoria affected l area [facility] Pravastatin Pravastatin Yes Jammie [address] Sodium Sodium [facility] ent [facility] Procedures This patient has no known procedures. Encounters Start End Encounter Admission Attending Care Care Encounter Source Date/Time Date/Time Type Type Clinicians Facility Department ID 2021-04-02 2021-04-[address] [facility] [id number] 00:00:00 00:00:00 [facility] [id number] [facility] [id number] 2021-04-01 2021-04-01 Telephone Anton [facility] [id number] 00:00:00 00:00:00 Roscoe Laughlin [facility] [id number] [facility] [id number] [place] [id number] AND RICHARD 312 [facility] 2020-03-07 2020-03-07 Outpatient Estefania Kilpatrick [id number] [facility] 14:40:00 14:40:00 [facility] Family Medicine l Medicine [facility] 2019-09-10 2019-09-10 Outpatient Estefania Kilpatrick [id number] [facility] 15:35:00 15:35:00 t [facility] Medicine Medicine Outpati ent Clinics 2019-08-29 2019-08-29 [facility] [id number] [address] 11:00:00 11:00:00 t [facility] Medicine Outpati ent Clinics 2019-08-15 2019-08-15 [facility] [id number] 13:40:00 13:40:00 t [facility] Medicine Outpati ent Clinics 2019-02-09 2019-02-09 [facility] [id number] [address] 10:00:00 10:00:00 t [facility] Medicine Outpati ent Clinics 2018-10-06 2018-10-06 [facility] [id number] [address] 13:30:00 13:30:00 t [facility] Medicine Outpati ent Clinics 2018-10-05 2018-10-05 [facility] [id number] 11:52:00 11:52:00 t [facility] Medicine Outpati ent Clinics 2018-09-20 2018-09-20 [facility] [id number] [address] 14:45:00 14:45:00 t [facility] Medicine Outpati ent Clinics 2018-07-13 2018-07-13 [facility] [id number] [facility] 09:52:00 09:52:00 t [facility] Medicine Medicine Outpati ent Clinics 2018-06-06 2018-06-06 [facility] [id number] [address] 10:14:00 10:14:00 t [facility] Medicine Outpati ent Clinics 2018-06-05 2018-06-05 [facility] [id number] 14:31:00 14:31:00 t [facility] Medicine Outpati ent Clinics 2018-06-02 2018-06-02 [facility] [id number] [facility] 21:51:00 21:51:00 [facility] 2018-06-02 2018-06-02 Outpatient Estefania Kilpatrick [id number] [facility] 11:00:00 11:00:00 [facility] Results Test Description Test Time Test [...] 86 Unit/L 45-117 N Completed by Nursing: [id number] 17:04:00 Test Item Value Reference Range Interpretation [...] andrew yby method. Completed by Nursing: NOPROTHROMBIN [id number] 17:03:00 Test Item Value Reference Range Interpretation Comments PT PATIENT (test code = PTP) 10.8 SECONDS 9.3-12.9 N INTERNATIONAL NORMAL RATIO 0.94 INR Unit 0.8-1.2 N (test code = INR) THROMBOPLASTIN TIME [id number] 17:03:00 Test Item Value Reference Range Interpretation Comments THROMBOPLASTIN TIME PARTIAL 28.7 SECONDS 26-35 N (test code = PTT) CBC W/O [id number] 16:35:00 Test Item Value Reference Range Interpretation [...] 10.40 fL 7.0-10.5 N MPV) CHEMISTRY 8 [id number] 16:30:00 Test Item Value Reference Range Interpretation [...] 58-135 L code = GFRBED) CHEMISTRY 8 [id number] 16:30:00 Test Item Value Reference Range Interpretation [...] L (test code = GFRBED) TROPONIN I [id number] 16:28:00 Test Item Value Reference Range Interpretation Comments TROPONIN I RAPID 0.00 ng/mL 0.00-0.08 N - The use o f serial (test code = sampling and te sting TROPIRAP) protocol is a recommended pra ctice- An elevated tro ponin level alone is often not sufficient for diagnosis of my ocardial infarction. GLUCOSE BEDSIDE [id number] 16:12:00 Test Item Value Reference Range Interpretation Comments GLUCOSE BEDSIDE TESTING (test code 283 mg/dL 70-110 H = GLUBED) - CT HEAD/BRAIN W/O [id number] 16:02:00 Name: INGRIS MCLEAN [facility]ly [facility] : 1975 Age/S: 43 / F [id number] [address] Unit #: [id number] Loc: [place] [address] Phys: Robyn Moffett MD Acct: [id number] Dis Date: Status: REG ER PHONE #: [phone] Exam Date: 07/07/2019 3081 FAX #: Reason: Code Str raine EXAMS: CPT: [id number] CT HEAD/BRAIN W/O CONT [id number] EXAMINATION: - CT HEAD/BRAIN W/O CONT. LOCATION: [...] PAGE 1 Signed Report (CONTINUED)Name: INGRIS MCLEAN [facility]ly [facility] : 1975 Age/S: 43 / F [address] [address] Unit #: [id number] Loc: [place] [address] Phys: Robyn Moffett MD Acct: [id number] Dis Date: Status: REG ER PHONE #: [phone] Exam Date: 07/07/2019 1551 FAX #: Reason: Code Stroke EXAMS: CPT: [id number] CT HEAD/BRAIN W/O CONT 19254 <Continued> CC: Fani Colon ASSISTANT SPEECH LANGUAGE PATHOLOGIST; Robyn Moffett MD Technologist:MARY HENLEY RT(R)(CT)(MR) CTDI: DLP: Trnscb Date/Time: 07/07/2019 (1602) t.[email or web address] Orig Print D/T: S: 07/07/2019 (1606) PAGE 2 Signed Report
[2021-04-20 00:30] LABS: Protime INR 0.97
[2021-04-20 00:32] LABS: Absolute Lymphocytes (CBC) 2.3 K/uL (0.7-4.9); Basophils % 1.1 % (0-1.3); Hematocrit 35.6 % (36.0-45.0); Lymphocytes % 18.5 % (15.3-44.8); MPV 9.2 fL (7.6-11.3); RBC Red Blood Cell Count 4.17 M/uL (3.86-4.86)
[2021-04-20 00:50] LABS: ALT/SGPT 17 U/L (12-78); AST/SGOT 11 U/L (15-37); Albumin 2.5 g/dL (3.4-5.0); Alkaline Phosphatase 119 U/L (45-117); BUN Blood Urea Nitrogen 35 mg/dL (7-18); Bicarbonate 19 mmol/L (21-32); Bilirubin Direct < 0.1 mg/dL (0-0.2); Bilirubin Total 0.2 mg/dL (0.2-1.0); Glucose Level 383 mg/dL (74-106); NT PRO-BNP 5579 pg/mL (<125); Protein, Total 6.9 g/dL (6.4-8.2); Sodium Level 135 mmol/L (136-145); Troponin (Emerg Dept Use Only) < 0.02 ng/mL (0.0-0.045)
[2021-04-20] MEDS ORDERED: PROMETHAZINE INJ 25 MG/ML AMP ONE ×3 (01:05→06:35)
[2021-04-20] MEDS ORDERED: MEPERIDINE HCL 25 MG/ML SYR ONE (01:59)
[2021-04-20] MEDS ORDERED: INSULIN -REGULAR HUMAN 50 UNIT/0.5 ML ML ONE (02:00)
[2021-04-20 02:21] LABS: Blood Gas Oxyhemoglobin 95.5 % (94-97); Blood O2 Saturation 97.7 % (92-98.5)
--- NOTE | 2021-04-20 04:52 | ER ---
Nurse's Notes [facility] Name: Keiry Umaña Age: 45 yrs Sex: Female : 1975 Arrival Date: 04/19/2021 Time: 23:29 Bed 2 Private MD: Diagnosis: Chest pain, unspecified;Type 1 diabetes mellitus with hyperglycemia;Nausea Presentation: 04/19 23:38 Chief complaint: EMS states: Called for patient who had sudden left arm pain that began lp1 when she was attempting to go to sleep, reports vomiting x1 at home; States feeling neck pain, back pain. Coronavirus screen: Client denies travel out of the [place] in the last 14 days. At this time, the client does not indicate any symptoms associated with coronavirus-19. Ebola Screen: No symptoms or risks identified at this time. Initial Sepsis Screen: Does the patient meet any 2 criteria? No. Patient's initial sepsis screen is negative. Does the patient have a suspected source of infection? No. Patient's initial sepsis screen is negative. Risk Assessment: Do you want to hurt yourself or someone else? Patient reports no desire to harm self or others. Onset of symptoms was April 19, 2021. 23:38 Method Of Arrival: [facility] lp1 23:38 Acuity: CHERYL 2 lp1 LIBRARY PARAPROFESSIONAL: 04/20 00:55 LMP 04/20/2021 lp1 Historical: - Allergies: 04/19 23:39 KETAMINE; lp1 23:39 Morphine; lp1 - PMHx: 23:39 Diabetes - IDDM; High Cholesterol; Hypertension; ESRD; lp1 - PSHx: 23:39 Bilteral BKA; Cholecystectomy; Appendectomy; lp1 - Immunization history:: Adult Immunizations up to date. - Social history:: Smoking status: Patient denies any tobacco usage or history of. Screenin/12 00:55 Abuse screen: Denies threats or abuse. Denies injuries from another. Nutritional lp1 screening: No deficits noted. Tuberculosis screening: No symptoms or risk factors identified. Fall Risk Total Caban Fall Scale indicates High Risk Score (45 or more points). Fall prevention measures have been instituted. Side Rails Up X 2. Assessment: 04/19 23:45 General: Appears uncomfortable, Behavior is restless. Pain: Complains of pain in left lp1 arm Pain radiates to back and chest Pain currently is 8 out of 10 on a pain scale. Quality of pain is described as burning, sharp, Pain began suddenly. Neuro: Level of Consciousness is awake, alert, obeys commands, Oriented to person, place, time, situation. Cardiovascular: Capillary refill < 3 seconds in bilateral fingers Patient's skin is warm and dry. Rhythm is sinus rhythm. Respiratory: Respiratory effort is even, Respiratory pattern is regular, symmetrical, Breath sounds are clear bilaterally. GI: Abdomen is non-distended, Bowel sounds present X 4 quads. Reports nausea. : No signs and/or symptoms were reported regarding the genitourinary system. EENT: No signs and/or symptoms were reported regarding the EENT system. Derm: Skin is pink, warm \T\ dry. Musculoskeletal: Amputation of bilateral BKA. 04/20 01:45 Reassessment: Patient reports pain to arm severe at this time, 9/10 on pain scale, lp1 describing as numbness, tingling; states nausea returning; Provider notified. 03:08 Reassessment: Patient appears in no apparent distress at this time. Patient reports lp1 pain relieved; states nausea still present, but tolerable at this time; Patient reports unable to give urine specimen at this time. 04:00 Reassessment: Patient requesting to have medication for pain and nausea; Provider lp1 notified, no new orders. 04:53 Reassessment: Hospitalist at bedside to discuss plan of care with patient. lp1 05:10 Reassessment: Patient and/or family updated on plan of care and expected duration. Pain ea level reassessed. Patient is alert, oriented x 3, equal unlabored respirations, skin warm/dry/pink. 06:20 Reassessment: Hospitalist at bedside to discuss plan of care with patient. lp1 06:37 Reassessment: Awaiting on covid swab results and room assignment. ea 07:36 Reassessment: Patient appears in no apparent distress at this time. Patient and/or sv family updated on plan of care and expected duration. Pain level reassessed. Patient is alert, oriented x 3, equal unlabored respirations, skin warm/dry/pink. Vital Signs: 04/19 23:38 BP 162 / 115; Pulse 90; Resp 20; Pulse Ox 100% on R/A; Weight 127.01 kg (R); Height 5 lp1 ft. 7 in. (170.18 cm); Pain /; 04/20 00:45 BP 208 / 91; Pulse 88; Resp 16; Pulse Ox 100% on R/A; lp1 01:00 BP 161 / 66; Pulse 87; Resp 16; Pulse Ox 100% on R/A; lp1 01:55 BP 182 / 82; Pulse 81; Resp 17; Temp 97.7(O); Pulse Ox 100% on R/A; lp1 02:15 BP 130 / 68; Pulse 81; Resp 16; Pulse Ox 100% on R/A; lp1 03:12 BP 138 / 75; Pulse 80; Resp 15; Pulse Ox 100% on R/A; lp1 04:00 BP 158 / 83; Pulse 74; Resp 15; Pulse Ox 100% on R/A; lp1 06:31 BP 158 / 79; Pulse 74; Resp 18; Pulse Ox 99% on R/A; lp1 07:40 BP 159 / 90; Pulse 73; Resp 16; Pulse Ox 98% ; sv 04/19 23:38 Body Mass Index 43.85 (127.01 kg, 170.18 cm) lp1 ED Course: 04/19 23:29 Patient arrived in ED. ea 23:38 Sobeida Pappas, RN is Primary Nurse. lp1 23:39 Triage completed. lp1 23:39 Arm band placed on right wrist. lp1 23:40 Patient has correct armband on for positive identification. Bed in low position. Call lp1 light in reach. comfort advisor on. Pulse ox on. NIBP on. 23:40 Patient maintains SpO2 saturation greater than 95% on room air. lp1 23:51 Sal Phillips MD is Attending Physician. 7 04/20 00:12 Missed attempt(s): 20 gauge in right antecubital area. Inserted saline lock: 22 gauge lp1 in right antecubital area, using aseptic technique. Blood collected. 00:59 XRAY Chest (1 view) In Process Unspecified. EDMS 03:12 No provider procedures requiring assistance completed. lp1 04:51 Flako Chapman MD is Hospitalizing Provider. 7 04:53 Patient admitted, IV remains in place. lp1 07:13 Primary Nurse role handed off by Sobeida Pappas RN 07:13 Shawanda Zimmer, RN is Primary Nurse. sv Administered Medications: 00:49 Not Given (Patient Refused; Reports Zofran does not help with nauseaa): Zofran lp1 (Ondansetron) 4 mg IVP once; over 2 minutes 00:50 Drug: Phenergan (promethazine) 12.5 mg Route: IVP; Site: right antecubital; lp1 01:45 Follow up: Response: Nausea is decreased lp1 01:51 Drug: Insulin Regular Human 10 units {Co-Signature: ben (Ivon Engel RN).} Route: IVP; lp1 Site: right antecubital; 02:30 Follow up: Response: Blood sugar is lowered lp1 01:51 Drug: Phenergan (promethazine) 12.5 mg {Note: Verbal order per Dr. Phillips.} Route: IVP; lp1 Site: right antecubital; 03:00 Follow up: Response: No change in condition lp1 01:51 Drug: Demerol (meperidine) 25 mg {Note: Verbal order per Dr. Phillips.} Route: IVP; Site: lp1 right antecubital; 03:00 Follow up: Response: No change in condition lp1 04:51 Not Given (Patient Refused): Zofran (Ondansetron) 4 mg IVP once; over 2 minutes lp1 Outcome: 04:52 Decision to Hospitalize by Provider. [facility] 04:53 Condition: stable lp1 04:53 Instructed on the need for admit. 07:36 Admitted to Tele accompanied by tech, via stretcher, with chart, Report called to tara Song RN 07:47 Patient left the ED. Signatures: Dispatcher [employer] EDMS Shawanda Zimmer RN RN sv Pena, Laura, RN RN Ivon Cornelius RN RN ea Holmes, Maurice, MD MD [facility] Ivon Engel RN, ea Corrections: (The following items were deleted from the chart) 03:38 03:08 Reassessment: Patient appears in no apparent distress at this time. Patient lp1 reports pain relieved; states nausea still present, but tolerable at this time lp1
--- NOTE | 2021-04-20 04:53 | EDPHYS ---
Physician Documentation [facility] Name: Keiry Umaña Age: 45 yrs Sex: Female : 1975 Arrival Date: 04/19/2021 Time: 23:29 Bed 2 Private MD: ED Physician Sal Phillips HPI: 04/20 00:20 This 45 yrs old Female presents to ER via EMS with complaints of Chest Pain. mh7 01:01 The patient presents with a history of heart racing. Context: The symptoms occur during mh7 sleep. Onset: The symptoms/episode began/occurred suddenly, today. Duration: The patient or guardian reports multiple episodes, that are intermittent, that wax and wane, with no pattern. Modifying factors: The symptoms are aggravated by nothing. The symptoms are alleviated by nothing. Associated signs and symptoms: Pertinent positives: chest pain, nausea, SOB, Pertinent negatives: anxiety, cough, fever, lightheadedness, syncope, near-syncope, unusual stressors, vertigo, vomiting. Severity of symptoms: At their worst the symptoms were moderate today, in the emergency department the symptoms have improved moderately. 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 - Social history:: Smoking status: Patient denies any tobacco usage or history of. ROS: 04/20 01:01 Constitutional: Negative for fever, chills, and weight loss, Eyes: Negative for injury, mh7 pain, redness, and discharge, ENT: Negative for injury, pain, and discharge, Neck: Negative for injury, pain, and swelling, Back: Negative for injury and pain, : Negative for injury, bleeding, discharge, and swelling, MS/Extremity: Negative for injury and deformity, Skin: Negative for injury, rash, and discoloration, Neuro: Negative for headache, weakness, numbness, tingling, and seizure, Psych: Negative for depression, anxiety, suicide ideation, homicidal ideation, and hallucinations, Allergy/Immunology: Negative for hives, rash, and allergies, Endocrine: Negative for neck swelling, polydipsia, polyuria, polyphagia, and marked weight changes, Hematologic/Lymphatic: Negative for swollen nodes, abnormal bleeding, and unusual bruising. Exam: 01:01 Constitutional: This is a well developed, well nourished patient who is awake, alert, mh7 and in no acute distress. Head/Face: Normocephalic, atraumatic. Eyes: Pupils equal round and reactive to light, extra-ocular motions intact. Lids and lashes normal. Conjunctiva and sclera are non-icteric and not injected. Cornea within normal limits. Periorbital areas with no swelling, redness, or edema. Neck: Trachea midline, no thyromegaly or masses palpated, and no cervical lymphadenopathy. Supple, full range of motion without nuchal rigidity, or vertebral point tenderness. No Meningismus. Chest/axilla: Normal chest wall appearance and motion. Nontender with no deformity. No lesions are appreciated. Cardiovascular: Regular rate and rhythm with a normal S1 and S2. No gallops, murmurs, or rubs. Normal PMI, no JVD. No pulse deficits. Respiratory: Lungs have equal breath sounds bilaterally, clear to auscultation and percussion. No rales, rhonchi or wheezes noted. No increased work of breathing, no retractions or nasal flaring. Abdomen/GI: Soft, non-tender, with normal bowel sounds. No distension or tympany. No guarding or rebound. No evidence of tenderness throughout. Back: No spinal tenderness. No costovertebral tenderness. Full range of motion. Skin: Warm, dry with normal turgor. Normal color with no rashes, no lesions, and no evidence of cellulitis. Neuro: Awake and alert, GCS 15, oriented to person, place, time, and situation. Cranial nerves II-XII grossly intact. Motor strength 5/5 in all extremities. Sensory grossly intact. Cerebellar exam normal. Normal gait. Psych: Awake, alert, with orientation to person, place and time. Behavior, mood, and affect are within normal limits. 01:01 Musculoskeletal/extremity: Extremities: noted in the right leg and left leg: prosthetic limbs. Vital Signs: 04/19 23:38 BP 162 / 115; Pulse 90; Resp 20; Pulse Ox 100% on R/A; Weight 127.01 kg (R); Height 5 lp1 ft. 7 in. (170.18 cm); Pain 8/10; 04/20 00:45 BP 208 / 91; Pulse 88; Resp 16; Pulse Ox 100% on R/A; lp1 01:00 BP 161 / 66; Pulse 87; Resp 16; Pulse Ox 100% on R/A; lp1 01:55 BP 182 / 82; Pulse 81; Resp 17; Temp 97.7(O); Pulse Ox 100% on R/A; lp1 02:15 BP 130 / 68; Pulse 81; Resp 16; Pulse Ox 100% on R/A; lp1 03:12 BP 138 / 75; Pulse 80; Resp 15; Pulse Ox 100% on R/A; lp1 04:00 BP 158 / 83; Pulse 74; Resp 15; Pulse Ox 100% on R/A; lp1 06:31 BP 158 / 79; Pulse 74; Resp 18; Pulse Ox 99% on R/A; lp1 07:40 BP 159 / 90; Pulse 73; Resp 16; Pulse Ox 98% ; sv 04/19 23:38 Body Mass Index 43.85 (127.01 kg, 170.18 cm) lp1 MDM: 04:50 Differential diagnosis: arrythmia, dehydration, chest pain, palpitations. Data [facility] reviewed: vital signs, nurses notes, lab test result(s), cardiac enzymes, CBC, electrolytes, EKG, radiologic studies, plain films. Data interpreted: Pulse oximetry: on room air is 100 %. Interpretation: normal. Counseling: I had a detailed discussion with the patient and/or guardian regarding: the historical points, exam findings, and any diagnostic results supporting the discharge/admit diagnosis, the presence of at least one elevated blood pressure reading (>120/80) during this emergency department visit, lab results, radiology results, the need for further work-up and treatment in the hospital. Response to treatment: the patient's symptoms have mildly improved after treatment. 04:52 Patient medically screened. [facility] 04/19 23:30 Order name: Basic Metabolic Panel; Complete Time: 00:56 ea 04/19 23:30 Order name: CBC with Diff; Complete Time: 00:40 04/19 23:30 Order name: LFT's; Complete Time: 00:56 04/19 23:30 Order name: Magnesium; Complete Time: 00:56 04/19 23:30 Order name: NT PRO-BNP; Complete Time: 00:56 04/19 23:30 Order name: PT-INR; Complete Time: 00:40 04/19 23:30 Order name: Troponin (emerg Dept Use Only); Complete Time: 00:56 04/20 00:40 Order name: Lipase; Complete Time: 01:31 [facility] 04/20 00:57 Order name: Arterial Blood Gas; Complete Time: 02:31 [facility] 04/20 00:57 Order name: Ketone, Serum; Complete Time: 02:31 [facility] 04/20 02:29 Order name: Glucose, Ancillary Testing; Complete Time: 02:31 [facility] 04/20 03:19 Order name: Troponin (emerg Dept Use Only) [facility] 04/20 05:02 Order name: COVID-19 : Document "Date of Symptom Onset" if Symptomatic. 04/20 06:33 Order name: SARS-COV-2 RT PCR [facility] 04/19 23:30 Order name: XRAY Chest (1 view) 04/19 23:30 Order name: EKG; Complete Time: 23:31 04/19 23:30 Order name: Cardiac monitoring; Complete Time: 23:38 04/19 23:30 Order name: EKG - Nurse/Tech; Complete Time: 23:38 04/19 23:30 Order name: IV Saline Lock; Complete Time: 00:15 04/19 23:30 Order name: Labs collected and sent; Complete Time: 00:15 04/19 23:30 Order name: O2 Per Protocol; Complete Time: 23:38 04/19 23:30 Order name: O2 Sat Monitoring; Complete Time: 23:38 Administered Medications: 00:49 Not Given (Patient Refused; Reports Zofran does not help with nauseaa): Zofran lp1 (Ondansetron) 4 mg IVP once; over 2 minutes 00:50 Drug: Phenergan (promethazine) 12.5 mg Route: IVP; Site: right antecubital; lp1 01:45 Follow up: Response: Nausea is decreased lp1 01:51 Drug: Insulin Regular Human 10 units {Co-Signature: ben (Ivon Engel RN).} Route: IVP; lp1 Site: right antecubital; 02:30 Follow up: Response: Blood sugar is lowered lp1 01:51 Drug: Phenergan (promethazine) 12.5 mg {Note: Verbal order per Dr. Phillips.} Route: IVP; lp1 Site: right antecubital; 03:00 Follow up: Response: No change in condition lp1 01:51 Drug: Demerol (meperidine) 25 mg {Note: Verbal order per Dr. Phillips.} Route: IVP; Site: lp1 right antecubital; 03:00 Follow up: Response: No change in condition lp1 04:51 Not Given (Patient Refused): Zofran (Ondansetron) 4 mg IVP once; over 2 minutes lp1 Disposition Summary: 04/20/21 04:52 Hospitalization Ordered Hospitalization Status: Observation [facility] Provider: Flako Chapman [facility] Location: Telemetry/MedSurg (observation) [facility] Condition: Stable [facility] Problem: new [facility] Symptoms: have improved [facility] Bed/Room Type: Standard [facility] Room Assignment: 230(04/20/21 07:31) sv Diagnosis - Chest pain, unspecified 7 - Type 1 diabetes mellitus with hyperglycemia [facility] - Nausea [facility] Forms: - Medication Reconciliation Form [facility] - SBAR form [facility] Signatures: Dispatcher [employer] Shawanda Gilliland RN RN sv Pena, Laura, RN RN lp1 Juan Da Silva, BUSINESS CONTINUITY COORDINATOR-C BUSINESS CONTINUITY COORDINATOR-[facility] AlabamaIvon Cornelius RN RN ea Botello, Elizabeth eb Holmes, Maurice, MD MD 7 Ivon Engel RN, ea Corrections: (The following items were deleted from the chart) 07:24 04:52 [facility] eb 07:31 07:[address] [place] [id number]
--- NOTE | 2021-04-20 05:00 | P.HP ---
Certification for Inpatient Patient admitted to: Observation With expected LOS: <2 Midnights Patient will require the following post-hospital care: None Practitioner: I am a practitioner with admitting privileges, knowledge of patient current condition, hospital course, and medical plan of care. Services: Services provided to patient in accordance with Admission requirements found in Title 42 Section 412.3 of the Code of Federal Regulations Patient History Date of Service: 04/20/21 Primary Care Provider: none, nephrology-[facility] group Reason for admission: Chest pain/palpitations History of Present Illness: 45-year-old female with history of diabetes mellitus type 2, hypertension, CKD 4 presents emergency department for chest pain, palpitations. Patient reports she is doing fine until last night when she had a sudden severe pain in her left arm that radiated up to her chest with palpitations and associated shortness of breath/vomiting. Patient reports she has had for similar episodes in the past couple of hrs. Patient was evaluated in the emergency department, labs significant for sodium 135, potassium 5.0, carbon dioxide 19 BUN 35 creatinine 2.8 GFR 18 glucose 383 BNP 5579 white blood cell count 12.5 troponin negative, EKG unremarkable chest x-ray unremarkable. Patient still having pain, nausea after emergency department evaluation/interventions and emergency department provider wishes to admit under observation for chest pain/palpitations. Allergies ketamine Allergy (Severe, Verified 03/19/19 22:45) Anaphylaxis morphine Allergy (Intermediate, Verified 11/28/17 00:51) Anaphylaxis Home Medications: Insulin Aspart [Novolog Flexpen] 20 unit SQ AC PRN 02/04/16 Biotin/Keratin [Biotin Plus Keratin Tablet] 1 tab PO DAILY 05/23/20 Cyanocobalamin (Vitamin B-12) [Vitamin B12] 1 tab PO DAILY 05/23/20 Hydralazine HCl 50 mg PO BID 05/23/20 Insulin Degludec [Tresiba] 60 units SQ DAILY 05/23/20 Dulaglutide [Trulicity] 0.75 mg SQ EVERY 7TH DAY 08/26/20 Furosemide 20 mg PO BID 08/26/20 Nebivolol HCl [Bystolic] 1 tab PO DAILY 09/26/20 Codeine/APAP [Tylenol W/Codeine #3 tab] 1 tab PO Q4H PRN #30 tab 09/27/20 Sodium Bicarbonate 650 mg PO BID #60 tablet 09/27/20 - Past Medical/Surgical History Diabetic: Yes -: Hypertension -: Hyperlipidemia -: IDDM -: Depression -: stage 4 kidney disease -: Appendectomy -: Cholecystectomy -: Bilateral BKAs Psychosocial/ Personal History: Patient lives at home with her family and 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 Mother -: Heart disease, Diabetes, Stroke Notes: - Social History Smoking Status: Former smoker Alcohol use: No CD- Drugs: No Caffeine use: Yes Place of Residence: Home Review of Systems 10-point ROS is otherwise unremarkable Respiratory: Shortness of Breath Cardiovascular: Chest Pain, Palpitations Musculoskeletal: Arm Pain Physical Examination - Physical Exam General: Alert, In no apparent distress, Oriented x3 HEENT: Atraumatic, PERRLA, Mucous membr. moist/pink Neck: Supple, 2+ carotid pulse no bruit, No LAD Respiratory: Clear to auscultation bilaterally, Normal air movement Cardiovascular: Regular rate/rhythm, Normal S1 S2 Gastrointestinal: Normal bowel sounds, No tenderness Musculoskeletal: No tenderness, Other (Bilateral BKA) Integumentary: No rashes Neurological: Normal speech, Normal strength at 5/5 x4 extr, Normal tone, Normal affect Lymphatics: No axilla or inguinal lymphadenopathy - Studies Laboratory Data (last 24 hrs) 04/20/21 00:10: Lipase 86 04/20/21 00:10: PT 11.2, INR 0.97 04/20/21 00:10: WBC 12.50 H, Hgb 11.7 L, Hct 35.6 L, Plt Count 343 04/20/21 00:10: Sodium 135 L, Potassium 5.0, BUN 35 H, Creatinine 2.80 H, Glucose 383 H, Magnesium 2.0, Total Bilirubin 0.2, AST 11 L, ALT 17, Alkaline Phosphatase 119 H Assessment and Plan - Plan Assessment Chest pain, palpitations rule out ACS CKD 4 Diabetes mellitus type 2 with hyperglycemia Hypertension Plan Chest pain, palpitations rule out ACS: Continue daily aspirin, statin. Trend troponins, cardiology consult in place. Monitor on telemetry. Patient also with some nausea/vomiting will provide patient with Protonix, p.r.n. anti emetics. DVT prophylaxis with Lovenox 40 mg subcutaneous once daily. Appreciate further input from cardiology. CKD 4: Patient with relatively stable CKD 4, will consult nephrology for evaluation as patient has not seen her nephrology group and while, reports that she is compliant with her sodium bicarbonate therapy. Diabetes mellitus type 2 with hyperglycemia: A.c. HS Accu-Cheks and sliding scale insulin therapy. Patient reports her blood sugars have been running a bit high. Reports that she takes 60 units of tresiba daily. Hypertension: Obtain and continue medications, adjust as necessary. Discharge Plan: Home Plan to discharge in: 24 Hours - Advance Directives Does patient have a Living Will: No Does patient have a Durable POA for Healthcare: No - Code Status/Comfort Care Code Status Assessed: Yes (Full code) Critical Care: No Time Spent Managing Pts Care (In Minutes): 55
[2021-04-20] MEDS ORDERED: SODIUM CHLORIDE 0.9% 10ML INJ IV PRN (05:46)
[2021-04-20] MEDS ORDERED: ACETAMINOPHEN 500 MG TAB PO PRN (05:46)
[2021-04-20] MEDS ORDERED: GLUCAGON 1 MG/VIAL IM PRN (05:46)
[2021-04-20] MEDS ORDERED: D50W 25 GM/50 ML SYRINGE IV PRN (05:46)
[2021-04-20] MEDS ORDERED: TRAMADOL HCL 50 MG TAB PO PRN (05:46)
[2021-04-20] MEDS ORDERED: ONDANSETRON 4 MG/2 ML VIAL IV PRN (05:46)
[2021-04-20] MEDS ORDERED: NA CHLORIDE 0.9% 1,000 ML IV SCH (06:00)
[2021-04-20] MEDS: PROMETHAZINE INJ 25 MG/ML AMP IV PRN ×2 (06:23→21:27)
[2021-04-20] MEDS: HYDROCODONE/APAP 7.5/325 MG TAB PO PRN ×2 (06:27→21:27)
[2021-04-20] MEDS ORDERED: HYDROCODONE/APAP 7.5/325 MG TAB ONE (06:47)
--- NOTE | 2021-04-20 08:23 | RAD REPORT ---
EXAM DESCRIPTION: CT - C Spine Wo Con - 04/20/2021 7:05 am CLINICAL HISTORY: L arm shooting pain, intermittent paresthesia Neck pain, radiculopathy COMPARISON: C Spine Wo Con dated 09/26/2020; Soft Tissue Neck Wo Contr dated 05/25/2020; Soft Tissue Neck Wo Contr dated 05/23/2020 FINDINGS: The cervical vertebral body heights are maintained. Disc thinning with small posterior ost eophyte present lower cervical levels. No evidence of acute cervical spine fracture or subluxation. Prevertebral soft tissues are normal in thickness. IMPRESSION: Negative for acute cervical spine abnormality. Mild to moderate lower cervical spondylosis. Suggest followup MR imaging of the cervical spine for fu rther assessment. All CT scans are performed using dose optimization technique as appropriate and may include automated exposure control or mA/KV adjustment according to patient size.
[2021-04-20 08:26] VITALS: O2SAT 99
--- NOTE | 2021-04-20 08:47 | RAD REPORT ---
EXAM DESCRIPTION: RAD - Chest Single View - 04/20/2021 12:59 am CLINICAL HISTORY: CHEST PAIN Chest pain. COMPARISON: Chest Single View dated 09/25/2020; Chest Single View dated 03/21/2019; Chest Single View dated 03/19/2019; Chest Single View dated 11/27/2017 FINDINGS: Portable technique limits examination quality. The lungs are grossly clear. The heart is normal in size. No displaced fractures. IMPRESSION: No acute intrathoracic process suspected.
[2021-04-20] MEDS: PANTOPRAZOLE 40 MG INJ IVP SCH (09:00)
[2021-04-20 09:16] LABS: HDL Cholesterol 38 mg/dL (40-60)
[2021-04-20 09:27] LABS: LDL, Direct 112 mg/dL (100-129)
[2021-04-20] MEDS: HEPARIN 5000 UNIT/ML 1 ML VIAL SQ SCH ×2 (10:13→21:27)
[2021-04-20] MEDS: METOPROLOL TAR 25 MG TAB PO SCH ×2 (10:13→17:05)
[2021-04-20] MEDS: INSULIN GLARGINE 100 UNITS/ML SQ SCH ×2 (10:14→21:38)
[2021-04-20] MEDS: INSULIN -REGULAR HUMAN 50 UNIT/0.5 ML ML SQ SCH ×4 (10:14→21:38)
[2021-04-20] MEDS: SODIUM BICARB 325 MG TAB PO SCH ×2 (10:14→21:28)
[2021-04-20] MEDS: ASPIRIN EC 81 MG TAB PO SCH (10:14)
[2021-04-20 10:48] VITALS: BMI 43.8
[2021-04-20 11:45] LABS: Urine Appearance CLEAR (Clear); Urine Bilirubin NEGATIVE (Negative); Urine Blood 2+ (Negative); Urine Color YELLOW (Yellow); Urine Glucose 2+ (Negative); Urine Microscopic Reflex ORDER UMIC; Urine Protein 3+ (Negative); Urine Specific Gravity 1.015 (1.005-1.030); Urine Urobilinogen 0.2 mg/dL (0.2-1.0)
[2021-04-20 11:55] LABS: Urine Bacteria <20 /HPF (<20); Urine RBC <5 /HPF (NONE SEEN)
--- NOTE | 2021-04-20 16:06 | EKG ---
Test Date: 2021-04-19 Test Time: 23:34:57 Gate Agent: DANYELL MEASUREMENT RESULTS: Intervals: Rate: 89 DC: 124 QRSD: 86 QT: 400 QTc: 486 [place]: P: 43 DC: 124 QRS: 13 T: 93 INTERPRETIVE STATEMENTS: Normal sinus rhythm Nonspecific ST and T wave abnormality Prolonged QT Abnormal ECG Compared to ECG 09/26/2020 08:21:25 ST (T wave) deviation now present T-wave abnormality no longer present Possible ischemia no longer present Electronically Signed On 04-20-21 16:04:06 CDT by Mehdi Damico
[2021-04-20] MEDS ORDERED: HYDRALAZINE HCL 20 MG/ML VIAL IV PRN (16:22)
[2021-04-20] MEDS ORDERED: D50W 25 GM/50 ML VIAL IV PRN (17:00)
[2021-04-20] MEDS ORDERED: HOME MED 1 EA UNK (Hydralazine Hcl [Hydralazine Hcl] 50 MG Tablet) PO SCH (21:00)
[2021-04-20] MEDS: HYDRALAZINE HCL 25 MG TABLET PO SCH (21:28)
[2021-04-20] MEDS: ATORVASTATIN 40 MG TAB PO SCH (21:38)
[2021-04-21] MEDS: PROMETHAZINE INJ 25 MG/ML AMP IV PRN ×5 (01:10→17:36)
--- NOTE | 2021-04-21 02:39 | CON ---
Date of Consultation: 04/20/2021 Chief Complaint: Chronic kidney disease. History Of Present Illness: The patient is a 45-year-old woman with history of diabetes mellitus typ e 2, hypertension, hypertensive heart and kidney disease, diabetic kidney disease, chronic kidney dis ease stage 4, who presented to Emergency Department for chest pain and palpitation. The patient was complaining of severe pain with sudden onset involving the left arm, radiating to the aperture, assoc iated with shortness of breath, vomiting, and palpitation. The patient similarities on at least 2 oc casions prior to this admission. The patient was evaluated in the night, was found to have potassium 5, sodium 135, carbon dioxide , BUN 35, creatinine 2.8, estimated GFR was 18, glucose 383. BNP 5579. White count was 12.5. Troponin was negative. EKG was unremarkable. Chest x-ray do not show pneumonia, was unremarkable for any evidence of pulmonary edema. The patient was having pain a nd nausea in the emergency room, was medicated for pain. Received anti-nausea medication. The patie nt is feeling better. Review of Systems: Constitutional: Denies fever, chills, syncope. Eyes: Denies new vision changes. Ears, Nose, Mouth, and Throat: Denies sore throat or earache. Respiratory: She has shortness of breath associated with chest pain and palpitation. Denies current ly that symptoms. GI: Denies melena or hematemesis. She has nausea and vomiting. : Denies dysuria, hematuria, incomplete voiding. All other systems reviewed and all are negative. Past Medical History: Diabetes mellitus, chronic kidney disease stage 4, hyperlipidemia, depression, appendectomy, cholecystectomy, bilateral BKA, insulin-dependent diabetes mellitus, hypertension, and hyperlipidemia. Family History: Father with hypertension and pancreatic cancer. The patient's father is . Brother with cancer of the lung. Brother is . Mother with diabetes and stroke. She is dece ased. Social History: She is former smoker. Denies alcohol or illicit drugs. Physical Examination: General: The patient is alert, is not in apparent distress, oriented x3. Eyes: Anicteric sclerae. EOMI. Ears, Nose, Mouth, and Throat: Oral mucosa moist. No pallor. Neck: Supple. No bruits. Lungs: Diminished breath sounds at bases. Heart: S1, S2. No pericardial friction rub. Abdomen: Soft, benign. Extremities: Status post BKA. Laboratory Data: WBC 12.5, hemoglobin 11.7, platelet count 343. Sodium 135, potassium 5, BUN 35, cr eatinine 2.8, glucose 382. AST 11, ALT 17, total bilirubin 0.2. Magnesium 2. Impression And Plan: 1.Chest pain and palpitation. The patient is admitted to rule out acute coronary syndrome. 2.Chronic kidney disease stage 4 due to diabetes mellitus and hypertension. Plan is to check kidney ultrasound, monitor electrolytes. Avoid nephrotoxic medications. The patient will continue insulin for diabetic control. The patient has elevated blood glucose. Advance insulin per sliding scale. 3.Hypertension. Continue medication. Monitor blood pressure and adjust medication as needed. BRENDA/LYNNEL Voice ID: [id number] Report ID: [id number]
[2021-04-21 04:21] LABS: Absolute Lymphocytes (CBC) 3.2 K/uL (0.7-4.9); Hematocrit 31.2 % (36.0-45.0); Lymphocytes % 29.3 % (15.3-44.8); MPV 9.3 fL (7.6-11.3); RBC Red Blood Cell Count 3.69 M/uL (3.86-4.86)
[2021-04-21 04:34] LABS: Bilirubin Total 0.2 mg/dL (0.2-1.0); Potassium 4.9 mmol/L (3.5-5.1); Protein, Total 5.7 g/dL (6.4-8.2)
[2021-04-21] MEDS: METOPROLOL TAR 25 MG TAB PO SCH ×2 (05:36→17:37)
--- NOTE | 2021-04-21 06:04 | P.PN ---
Subjective Date of Service: 04/21/21 Primary Care Provider: none, nephrology-[facility] group Chief Complaint: Chest pain/palpitations Subjective: Other (No c/o chest pain. She reports having neck & LUE pain.) Physical Examination - Vital Signs Temperature: 97.1 F Blood Pressure: 132/60 Pulse: 79 Respirations: 18 Pulse Ox (%): 100 - Physical Exam General: In no apparent distress HEENT: Atraumatic, Normocephalic Neck: Supple, JVD not distended Respiratory: Clear to auscultation bilaterally Cardiovascular: No rubs, No murmurs Gastrointestinal: Soft and benign, Non-distended Musculoskeletal: Other (+bilateral BKA) Integumentary: No warmth Neurological: Normal speech, Normal tone Urinary: Other (No bladder distention; no weinberg catheter) External genitalia: Deferred Rectal: Deferred - Studies Laboratory Data (last 24 hrs) 04/20/21 04:02: Troponin I Cancelled, Triglycerides 474 H, Cholesterol 212 H, LDL Cholesterol Direct 112, HDL Cholesterol 38 L, Cholesterol/HDL Ratio 5.58 Assessment And Plan - Plan # Progressive proteinuric CKD4 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 Tyra Rodriguez at [facility] Per pt, she is undergoing KTx eval for LDKTx at [facility] Urinalysis showed 3+proteinuria & pyuria but no hematuria F/u UCx Monitor renal panel # Nephrotic-range proteinuria Likely 2/2 DM Hx of uncontrolled DM Has Proteinuria 7.1g Partial proteinuria workup neg, including neg SPEP Check serum RENATA, kappa:lambda SFLC, random urine UPEP as outpt; this is likely previously completed by her primary clinical pharmacologist # Chest pain Per Cardiology # Htn BP at goal Monitor # Non-gap metabolic acidosis from renal failure ABG on 04/20 showed NAGMA w/ approp respi compensation Cont oral bicarb # Anemia Nomocytic, RDW wnl TSH wnl Recheck iron panel as outpt # Secondary hyperPTH Recheck serum iPTH + 25OHD as outpt # DM2 Mngt per primary team # Neck, LUE pain Neck MRI showed cervical spondyloses C4-C7 w/ disc herniation Further eval per other services
--- NOTE | 2021-04-21 08:37 | RAD REPORT ---
EXAM DESCRIPTION: US - Renal Ultrasound-Complete - 04/21/2021 8:20 am CLINICAL HISTORY: Chronic renal disease stage IV COMPARISON: 2019 FINDINGS: The right kidney measures 10 cm with an increased echotexture. The left kidney measures 10 cm with an increased echotexture. Hydronephrosis is not seen. No gross abnormality of bladder is seen IMPRESSION: Increased renal echotexture consistent with parenchymal disease
[2021-04-21] MEDS: INSULIN -REGULAR HUMAN 50 UNIT/0.5 ML ML SQ SCH ×4 (09:42→20:15)
[2021-04-21] MEDS: HYDRALAZINE HCL 25 MG TABLET PO SCH ×2 (09:42→20:14)
[2021-04-21] MEDS: INSULIN GLARGINE 100 UNITS/ML SQ SCH ×2 (09:43→20:14)
[2021-04-21] MEDS: HEPARIN 5000 UNIT/ML 1 ML VIAL SQ SCH ×2 (09:43→20:14)
[2021-04-21] MEDS: ASPIRIN EC 81 MG TAB PO SCH (09:43)
[2021-04-21] MEDS: PANTOPRAZOLE 40 MG INJ IVP SCH (09:43)
[2021-04-21] MEDS: SODIUM BICARB 325 MG TAB PO SCH ×2 (09:43→20:15)
--- NOTE | 2021-04-21 13:13 | RAD REPORT ---
EXAM DESCRIPTION: MRI - C Spine Wo Cont - 04/21/2021 1:03 pm CLINICAL HISTORY: Neck and sharp shooting pain on right arm COMPARISON: No comparisons TECHNIQUE: Sagittal T1-weighted, T2-weighted and T2-STIR sequences were obtained as well as T2 medic sequence. FINDINGS: Cervical vertebral bodies are normal in height and alignment. No suspicious marrow edema o r marrow replacing process. No paraspinal mass. Cerebellar tonsils and mid-line skull base show no suspicious finding. No significant finding at the C1 and C2 levels. C2-3 level: No significant findings. C3-4 level: No significant findings. C4-5 level: Disc bulge extends across the central canal attenuating the anterior subarachnoid space. There is contact of the cord. Spinal stenosis to 8-9 mm noted. Disc bulge and uncovertebral joint hyp ertrophy contribute to bilateral foraminal stenosis. C5-6 level: Broad-based herniation of disc material is present extending beyond the endplate spurring . There is contact and flattening the cord. Spinal stenosis is 8 mm. Mild bilateral foraminal stenosi s is present on the right with moderate foraminal stenosis on the left. C6-7 level: Disc bulge partially attenuates the anterior subarachnoid space. There is no contact of t he cord but the cord does have a flattened anterior contour. Spinal stenosis to 8.5 mm noted. Mild le ft foraminal stenosis from protruding disc material. C7-T1 level: No significant findings. No expansile change of the cord. No cord signal abnormality. IMPRESSION: Cervical spondylosis changes are present involving C4-5, C5-6 and C6-7. Spinal stenosis is present at all 3 levels, more pronounced at C5-6 where the cord is flattened by th e herniated disc material. Uncovertebral joint hypertrophy and disc bulge changes in the exit foramina resulting in foraminal st enosis at the same 3 levels.
--- NOTE | 2021-04-21 15:47 | P.DS ---
Admission Date: 04/20/21 Discharge Date: 04/21/21 Primary Care Provider: none, nephrology-[facility] group Disposition: ROUTINE DISCHARGE Discharge Condition: FAIR Reason for Admission: Chest pain/palpitations - Problems (1) Cervical radiculopathy Current Visit: Yes Status: Acute (2) Peripheral edema Current Visit: No Status: Acute (3) CKD (chronic kidney disease) Current Visit: No Status: Chronic Qualifiers: Chronic kidney disease stage: stage 4 (severe) Qualified Code(s): N18.4 - Chronic kidney disease, stage 4 (severe) (4) Diabetes mellitus Current Visit: No Status: Chronic Qualifiers: Diabetes mellitus type: type 1 Diabetes mellitus complication status: with kidney complications Diabetes mellitus complication detail: with chronic kidney disease Chronic kidney disease stage: stage 4 (severe) Qualified Code(s): E10.22 - Type 1 diabetes mellitus with diabetic chronic kidney disease; N18.4 - Chronic kidney disease, stage 4 (severe) (5) HTN (hypertension) Current Visit: No Status: Acute Qualifiers: Hypertension type: essential hypertension Qualified Code(s): I10 - Essential (primary) hypertension (6) Morbid obesity Current Visit: No Status: Acute Brief History of Present Illness: 45-year-old woman with a history of chronic kidney disease follow with [facility] nephrology, morbid obesity, insulin-dependent diabetes mellitus type 2 presented to the emergency department with a complaint of sharp shooting pain from the neck to the left arm, associated with tingling sensation and numbness, maximum intensity 10/10 up to the point she was tearing. She felt palpitation with the pain. Workup in the emergency department was unremarkable except elevated creatinine. Initial troponin negative. EKG demonstrated sinus rhythm with nonspecific T-wave abnormality. Chest x-ray unremarkable. CT cervical spine showed moderate spondylosis. Patient was hospitalized for further management. Hospital Course: Troponin trended negative. Patient had no chest pain during the hospital stay. She continued to experience intermittent sharp shooting pain down her left arm. MRI of the cervical spine report cervical spondylosis changes are present involving C4-5, C5-6 and C6-7. Spinal stenosis is present at all 3 levels, more pronounced at C5-6 where the cord is flattened by the herniated disc material. Uncovertebral joint hypertrophy and disc bulge changes in the exit foramina resulting in foraminal stenosis at the same 3 levels. Essential shooting pain likely secondary to cervical radiculopathy. She is prescribed gabapentin and follow up with neurology. She will also need neurosurgery follow up as an outpatient. She was seen by nephrology and noted to have nephrotic range proteinuria. She will follow with Nephrology as an outpatient for further workup. Vital Signs/Physical Exam: Temp Pulse Resp BP Pulse Ox 97.3 F 73 18 144/67 H 99 04/21/21 12:00 04/21/21 12:00 04/21/21 12:00 04/21/21 12:00 04/21/21 12:00 General: Alert, In no apparent distress, Oriented x3 HEENT: Mucous membr. moist/pink Neck: JVD not distended Respiratory: Clear to auscultation bilaterally, Normal air movement Cardiovascular: No edema, Regular rate/rhythm, Normal S1 S2, No murmurs Gastrointestinal: Normal bowel sounds, Soft and benign, Non-distended, No tenderness Musculoskeletal: No swelling, No erythema Integumentary: No breakdown, No erythema Neurological: Normal gait, Normal speech, Normal strength at 5/5 x4 extr, Cranial nerves 3-12 intact Laboratory Data at Discharge: WBC 11.00 K/uL (4.3-10.9) H 04/21/21 03:31 Hgb 10.3 g/dL (12.0-15.0) L 04/21/21 03:31 Hct 31.2 % (36.0-45.0) L 04/21/21 03:31 Plt Count 317 K/uL (152-406) 04/21/21 03:31 PT 11.2 SECONDS (9.5-12.5) 04/20/21 00:10 INR 0.97 04/20/21 00:10 Sodium 137 mmol/L (136-145) 04/21/21 03:31 Potassium 4.9 mmol/L (3.5-5.1) 04/21/21 03:31 BUN 44 mg/dL (7-18) H 04/21/21 03:31 Creatinine 3.24 mg/dL (0.55-1.3) H 04/21/21 03:31 Glucose 205 mg/dL (74-106) H 04/21/21 03:31 Magnesium 2.0 mg/dL (1.8-2.4) 04/20/21 00:10 Total Bilirubin 0.2 mg/dL (0.2-1.0) 04/21/21 03:31 AST 11 U/L (15-37) L 04/21/21 03:31 ALT 14 U/L (12-78) 04/21/21 03:31 Alkaline Phosphatase 96 U/L (45-117) 04/21/21 03:31 Troponin I < 0.02 ng/mL (0.0-0.045) 04/20/21 13:58 Triglycerides 474 mg/dL (<150) H 04/20/21 04:02 Cholesterol 212 mg/dL (<200) H 04/20/21 04:02 LDL Cholesterol Direct 112 mg/dL (100-129) 04/20/21 04:02 HDL Cholesterol 38 mg/dL (40-60) L 04/20/21 04:02 Cholesterol/HDL Ratio 5.58 04/20/21 04:02 Lipase 86 U/L (73-393) 04/20/21 00:10 Home Medications: Insulin Aspart [Novolog Flexpen] 20 unit SQ AC PRN 02/04/16 Biotin/Keratin [Biotin Plus Keratin Tablet] 1 tab PO DAILY 05/23/20 Cyanocobalamin (Vitamin B-12) [Vitamin B12] 1 tab PO DAILY 05/23/20 Hydralazine HCl 50 mg PO BID 05/23/20 Insulin Degludec [Tresiba] 60 units SQ DAILY 05/23/20 Dulaglutide [Trulicity] 0.75 mg SQ EVERY 7TH DAY 08/26/20 Furosemide 20 mg PO BID 08/26/20 Nebivolol HCl [Bystolic] 1 tab PO DAILY 09/26/20 Sodium Bicarbonate 650 mg PO BID #60 tablet 09/27/20 Gabapentin 100 mg PO BEDTIME #30 capsule 04/21/21 New Medications: Gabapentin 100 mg PO BEDTIME #30 capsule Diet: ADA Activity: Ad francie Followup: Unknown,U [Primary Care Provider] - Ravin Shaffer MD [ASSOCIATE-ACTIVE - CAN ADMIT] - 1-2 Weeks
[2021-04-21 16:00] VITALS: BP 132/60; TEMP 97.1
[2021-04-21] MEDS: ATORVASTATIN 40 MG TAB PO SCH (20:15)
--- NOTE | 2021-04-21 21:06 | CON ---
Date of Consultation: 04/20/2021 Reason For Consultation: Atypical chest pain. History Of Present Illness: Ms. Umaña is a patient who has a history of end-stage renal disease, di abetes, hypertension, dyslipidemia, came in with neck pain, back pain, bilateral arm pain that is mos tly posterior, nonexertional. Denied PND, orthopnea, pedal edema, palpitations, or syncope. Denied any fever or chills. At the time she came in she was ruled out for an TN. Her BNP was 5579. Her cr eatinine was 2.8. Her glucose was 241. Allergies: TO KETAMINE AND MORPHINE. Review of Systems: Negative. Social History: Negative. Family History: Noncontributory. Medications: At home include Lasix, hydralazine, Trulicity, insulin, and Bystolic. Physical Examination: General: She weighed 280 pounds. No acute distress. Vital Signs: Stable, afebrile. HEENT: Negative. Neck: Supple without any bruit, lymphadenopathy, JVD, or thyromegaly. Chest: Clear to auscultation and percussion. Cardiac: Revealed a regular rhythm and rate with an S4 gallops. No murmurs or rubs. Abdomen: Obese but benign. Extremities: Revealed no clubbing, cyanosis, or edema. Diagnostic Data: As stated earlier. EKG was unremarkable. Chest x-ray was negative. Impression And Plan: Atypical chest pain in a patient who has obesity, end-stage renal disease, diab etes, hypertension, dyslipidemia. She was ruled out for myocardial infarction. I think her pain mos t likely is secondary to thoracic spine issue or cervical spine issue. It is certainly possible it i s cardiac although unlikely, but she has multiple cardiac risk factors and I feel comfortable with he r going home and having an outpatient echocardiogram and an FBI. I will see her in the near future. Her problems at this point including hypertension and dyslipidemia are controlled. Her creatinine i s stable. Her diabetes is poorly controlled and that needs to be addressed by Dr. Chapman. Continue p resent regimen. NB/MODL Voice ID: [id number] Report ID: [id number]
== END 2021-04-21 20:13 | disposition home or self-care (01) ==
LOC: ER 23:20 → ERHOLD 04-20 05:08 → 2ND 04-20 07:36
PROVIDERS: ADMIT Hospitalist; ATTEND Internal Medicine
DX: R07.89 Other chest pain (principal); M54.12 Radiculopathy, cervical region; I12.9 Hypertensive chronic kidney disease with stage 1 through stage 4 chronic kidney disease, or unspecified chronic kidney disease; N18.4 Chronic kidney disease, stage 4 (severe); E10.22 Type 1 diabetes mellitus with diabetic chronic kidney disease; E66.01 Morbid (severe) obesity due to excess calories; Z20.822 Contact with and (suspected) exposure to COVID-19; E78.5 Hyperlipidemia, unspecified; F32.9 Major depressive disorder, single episode, unspecified; Z87.891 Personal history of nicotine dependence; Z89.511 Acquired absence of right leg below knee; Z89.512 Acquired absence of left leg below knee; R00.2 Palpitations; Z68.41 Body mass index [BMI] 40.0-44.9, adult
CPT/HCPCS: 93005; 87088; 85025 ×2; 87086; 80048; 36415 ×2; 82010; 83721; 83735; 85610; 80061; 82947 ×8; 80076; 84443; 83036; 84484 ×4; 84439; 83690; 80053; 83880; 72125; 71045; 72141; 76770; 82805; 96375; 96374; 99285; U0003; J2550 ×9; J1644 ×3; C9113 ×2; J2175; J7030; G0378 ×3; 81003; 81015; J1815; J2405

== ENCOUNTER 2021-09-07 04:30 | Inpatient (IN) | payer BC, OTHER ==
--- OUTSIDE RECORDS SUMMARY | 2021-09-07 04:33 | XMS REPORT | Clinical Summary ---
:1975 Author Organization [facility] Address [address] [place] [address] Care Team Providers Name Role Phone Deepthi Steward MD Primary Care Provider Allergies Active Allergy Reactions Severity Noted Date Comments Ketamine Anxiety, Palpitations Low 02/09/2019 Other reaction(s): Hallucinations Morphine High 04/09/2016 Other reaction( s): Confusion/Agita tion allucinations Medications Medication Sig Dispensed Refills Start Date End Date Status LEVEMIR FLEXTOUCH Inject 35 Units 1 09/25/2018 Active U-100 INSULN 100 under the skin 3 unit/mL (3 mL) insulin (three) times a pen day. acetaminophen-codeine Take 2 tablets by 0 01/08/2019 Active (TYLENOL #3) 300 mg-30 mouth as needed. mg tablet amLODIPine (NORVASC) Take 1 tablet by 3 03/07/2019 Active 10 mg tablet mouth daily. famotidine (PEPCID) 20 Take 1 tablet by 0 01/08/2019 Active mg tablet mouth as needed. hydrALAZINE Take 1 tablet by 0 04/02/2019 Active (APRESOLINE) 50 mg mouth daily. tablet insulin aspart U-100 Inject 35 Units 0 04/10/2015 Active (NovoLOG Flexpen U-100 under the skin Insulin) 100 unit/mL twice daily. (3 mL) insulin pen lisinopril Take 20 mg by 0 04/02/2019 Acti ve (PRINIVIL,ZESTRIL) 10 mouth daily. mg tablet BYSTOLIC 5 mg tablet Take 1 tablet by 2 01/22/2019 Active mouth daily. Active Problems Problem Noted Date Left upper quadrant pain 07/05/2019 Overview: Added automatically from request for chris ruby [id number] Family history of malignant neoplasm of pancreas 07/05 Overview: Added automatically from request for chris ruby [id number] Diarrhea 07/05/2019 Overview: Added automatically from request for chris ruby [id number] Family history of cancer of colon 07/05/2019 Overview: Added automatically from request for chris ruby [id number] Encounters Date Type Specialty Care Team Description 01/18/2021 Orders Only Infectious Diseases Shawn Nieto MD S ARS-CoV-2 vaccination after 09/07/2020 Surgical History Surgery Date Site/Laterality Comments APPENDECTOMY 04/09/2019 - 05/09/2019 COLONOSCOPY 10/10/2014 - 10/09/2015 CHOLECYSTECTOMY 10/10/2003 - 10/09/2004 ND EDG US EXAM SURGICAL 07/09/2019 N/A Procedur e: UPPER ALTER STOM DUODENUM/JEJUNUM AURA ROINTESTINAL ENDOSCOPY WITH ENDOSCOPIC ULTRASOUND EXAMINATION; [place] rgeon: Brooke Kendall i, MD; Location: MAIN E NDOSCOPY; Service: GASTROE NTEROLOGY Medical History Medical History Date Comments Hypertension MARCH 2018 Hyperlipidemia 2016 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 Pneumonia DECEMBER 2018 Fatty liver APRIL 2019 Kidney failure 2015 History of recurrent urinary tract infection ALL MY LIFE Polycystic ovarian syndrome 1996 Endometriosis 1995 Blood transfusion, without reported diagnosis 2012 Osteomyelitis 2009 Diabetes mellitus 1996 Depressive disorder 2010 Anxiety 2010 Family History Medical History Relation Name Comments -Colon cancer Brother 1 RANJAN BRYANT -Melanoma Brother 1 RANJAN BRYANT -Thoracic or Lung Brother 2 JOE BRYANT -Unknown cancer Brother 3 ADEBAYO BRYANT -Pancreatic cancer Father JOE BRYANT -Breast cancer Paternal Grandmother JEANNINE BRYANT Relation Name Status Comments Brother 1 RANJAN LAZA Brother 2 JOE CHAUA Brother 3 ADEBAYO LAZA Father JOE BRYANT Paternal Grandmother JEANNINE BRYANT Social History Tobacco Use Types Packs/Day Years Used Date Never Smoker 0 0 Smokeless Tobacco: Never Used Alcohol Use Standard Drinks/Week Comments Never 0 (1 standard drink = 0.6 oz pure alcoho l) Sex Assigned at Date Recorded Female 06/25/2019 7:42 PM CDT Obstetrics History Last Filed Vital Signs Not on file Plan of Treatment Health Maintenance Due Date Last Done Comments COVID-19 Vaccination (1) 1982 Results Not on fileafter 09/07/2020 Insurance Payer Benefit Plan / Subscriber ID Effective Dates Phone Addre ss Type Group [employer] [place] POS [id number] 2018-Present [address] [place] [address] [phone] (Work) Keiry Umaña Personal/Family Self 1975 [address] (Home) [place], [place] [phone] (Work) Keiry Umaña Personal/Family Self 1975 [address] (Home) [place] [phone] (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
--- OUTSIDE RECORDS SUMMARY | 2021-09-07 04:35 | XMS REPORT | Continuity of Care Document ---
:1975 Author Organization [facility] t Address [address] [place] [address] Dr. Owen. [address] [place] [address] Care Team Providers Name Role Phone Pcp, Does Not Have A Primary Care Physician NENA Attending Clinician Unavailable Nena PEARSON Attending Clinician YENY Attending Clinician Unavailable YENY Attending Clinician Unavailable Selina PEARSON, Qian Attending Clinician Qian MARKS Attending Clinician Unavailable Doctor Unassigned, Name Attending Clinician Unavailable KAYLEN Attending Clinician Unavailable ARNULFO FORRESTER Attending Clinician Unavailable Emilia PEARSON Attending Clinician NORI RUIZ Attending Clinician Unavailable Payers Payer Name Policy Type Policy Number Effective Date Expiration Date S [facility] [id number] 2021 HEALTHCARE 00:00:00 PPO/POS [facility] [id number] 2014 00:00:00 BLUE CROSS BLUE [id number] 2018 MD Jovani alvarado [facility] 00:00:00 PPO [id number] -Present [address], [place] [address] Problems Condition Condition Condition Status Onset Resolution Last Treating Co mments Source Name Details Category Date Date Treatment Clinician Date CKD stage CKD stage Disease Active Uni vers G4/A3, GFR G4/A3, GFR 1-19 it y of 15-29 and 15-29 [place] albumin albumin 00 Medical creatinine creatinine Br anch ratio >300 ratio >300 mg/g mg/g Secondary Secondary Disease Active Uni vers hyperparat hyperparat 1-19 [place] y of hyroidism hyroidism 00:[place] Metabolic Metabolic Disease Active Uni vers acidosis acidosis -19 ity of 00:00: [place] 00 Medical Branch Nephrotic Nephrotic Disease Active Uni vers range range 8-04 ity of proteinuri [place]uri [place] Hyperkalem Hyperkalem Disease Active U nivers ia ia 8-04 ity of 00:00: [place] 00 Medical Branch Left upper Left upper Disease Active Overview : quadrant quadrant 9- Formattin And erso pain pain 00:00: g of this n 00 note might be different from the original. Added automatic ally from request for surgery [id number] Family Family Disease Active Overview: history of history of 07-05 Formattin Anderso malignant malignant 00:00: g of this n neoplasm neoplasm 00 note of of might be pancreas pancreas different from the original. Added automatic ally from request for surgery [id number] Diarrhea Diarrhea Disease Active Overview: 9- Formattin Anderso 00:00: g of this n 00 note might be different from the original. Added automatic ally from request for surgery [id number] Family Family Disease Active Overview: history of history of 07-05 Formattin Anderso cancer of cancer of 00:00: g of this n colon colon 00 note might be different from the original. Added automatic ally from request for surgery [id number] 26 weeks 26 weeks Disease Active Unive rs gestation gestation 6-06 ity of of of 00:00: [place] 00 [facility] deangelo Branch Pelvic Pelvic Disease Active Univers pain pain 6-06 ity of affecting affecting 00:00[place] Medi deangelo in second in second Bran ch trimester, trimester, antepartum antepartum Disease Active Uni vers headache headache 6-06 ity of in second in second 00:00[place] trimester trimester 00 Medi deangelo Branch Hypertensi Hypertensi Disease Active U nivers on on 6-06 ity of affecting affecting 00:00[place]i deangelo in second in second Bran ch trimester trimester Uncontroll Uncontroll Disease Active U nivers ed type 2 ed type 2 3-13 ity of diabetes diabetes 00:00: [place] mellitus mellitus 00 Medica l with with Branch complicati complicati on, on, without without long-term long-term current current use of use of insulin insulin CKD stage CKD stage Disease Active 2016-10 Uni vers G3b/A3, G3b/A3, 2-19 ity of GFR 30-44 GFR 30-44 00:00: [place] and and 00 Medical albumin albumin Branch creatinine creatinine ratio >300 ratio >300 mg/g mg/g Status Status Disease Active 2016-10 Univers post 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 00 Me dical amputation amputation Br anch Type 2 Type 2 Disease Active 2016-10 Univers diabetes diabetes 2-19 ity of mellitus mellitus 00:00: [place] with stage with stage 00 Me dical 3 chronic 3 chronic Bran ch kidney kidney disease, disease, with with long-term long-term current current use of use of insulin insulin Morbid Morbid Disease Active Univers obesity obesity 3-20 ity of with body with body 00:00[place] mass index mass index 00 Me dical of 50 or of 50 or Branch higher higher Troponin I Troponin I Disease Active U nivers above above 3-20 ity of reference reference 00:00[place] range range 00 Medical Branch Ischemic Ischemic Disease Active Unive rs chest pain chest pain 3-20 it y of 00:00: [place] 00 Medical Branch Chest pain Chest pain Disease Active U nivers 3-20 ity of 00:00: [place] 00 Medical Branch Morbid Morbid Disease Active Univers obesity obesity 3-20 ity of with body with body 00:00[place] mass index mass index 00 Me dical of of Branch 40.0-49.9 40.0-49.9 Vitamin D Vitamin D Disease Active Uni vers deficiency deficiency 3-16 it y of 00:00: [place] 00 Medical Branch Diabetes Diabetes Disease Active Unive rs mellitus mellitus 3-14 ity of type 2 type 2 00:00: [place] with with 00 Medical complicati complicati Br anch ons, ons, uncontroll uncontroll ed ed Essential Essential Disease Active Uni vers hypertensi hypertensi 3-14 it y of on, benign on, benign 00:00[place] HLD HLD Disease Active Overview: Univer s (hyperlipi (hyperlipi 3-14 Formattin ity of demia) demia) 00:00: g of this [place] note Medical might be Branch different from the original. 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) 00 Medi deangelo Branch S/P BKA S/P BKA Disease Active Univers (below (below 3-14 ity of knee knee 00:00: [place] amputation amputation 00 Me dical ) ) Branch Neuropathy Neuropathy Disease Active U nivers 3-14 ity of 00:00: [place] 00 Medical Branch Diabetic Diabetic Disease Active Unive rs foot ulcer foot ulcer 3-14 it y of 00:00: [place] 00 Medical Branch Morbid Morbid Problem Active [facility] (severe) [...] Me moria d type d type l [facility] [place] [facility] Neck pain Neck pain Problem Active [facility] on right on right [facility] - side side Memoria l [facility] [place] [facility] Acute pain Acute pain Problem Active [facility] of right of right [facility] - shoulder shoulder Memori a l [facility] [place] [facility] Right arm Right arm Problem Active [facility] pain pain [facility] - [facility] [place] [facility] Abnormal Abnormal Problem Active [facility] urinalysis urinalysis Sara kes - Memoria l [facility] [place] [facility] Migraine Migraine Problem Active [facility] [place] [facility] Depression Depression Problem Active [facility] , , [facility] - unspecifie unspecifie Me moria d d l depression depression Ou tpati type type ent Clinics Vitamin D Vitamin D Diagnosis Active [facility] deficiency deficiency Sara kes - Memoria l [facility] [place] [facility] Acquired Acquired Problem Active [facility] absence of absence of Sara kes - right leg right leg Yuan lawanda below knee below knee l [facility] [place] [facility] Acquired Acquired Diagnosis Active [facility] absence of 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 Memori a below knee below knee l [facility] [place] [facility] Type 2 Type [address] [facility] diabetes diabetes [facility] - [facility] l [facility] [place] [facility] Mixed Mixed Problem Active [facility] hyperlipid hyperlipid Sara kes - emia emia [facility] [place] [facility] Hx of BKA Hx of BKA Problem Active [facility] [place] [facility] Abdominal Abdominal Problem Active [facility] pain, pain, [facility]ukes - unspecifie unspecifie Me moria d d l abdominal abdominal Outp ati location location ent Clinics Fatigue, Fatigue, Problem Active [facility] unspecifie unspecifie Sara kes - d type d type Memoria l [facility] [place] [facility] Body mass Body mass Diagnosis Active [facility] index index [facility] - (BMI) (BMI) Memoria 45.0-49.9, 45.0-49.9, l adult adult [facility] [place] [facility] Depression Depression Problem Active [facility] with with [facility] - anxiety anxiety Memoria l [facility] Acute UTI Acute UTI Diagnosis Active [facility] Dietary Dietary Diagnosis Active [facility] surveillan surveillan Sara kes - ce and ce and Memoria counseling counseling l [facility] Allergies, Adverse Reactions, Alerts Allergy Allergy Status Severity Reaction(s) Onset Inactive Treating Comm ents Source Name Type Date Date Clinician morphine DA Active SV 2018- [facility] 9[facility]28 [place] 00:00: d 00 [facility] ketamine DA Active SV [facility] 9 [place] 00:00: d 00 [facility] Amlodipi Propensi Active Swelling Univ ers ne ty to 6-24 ity of adverse 00:00: [place] reaction 00 Medical s Branch AMLODIPI DRUG Active Swelling Univer s NE INGREDI 6-24 ity of 00:00: [place] 00 Medical [place] Ketamine Propensi Active Hallucinatio Univers ty to ns 5-03 ity of adverse 00:00: [place] reaction 00 Medical s Branch KETAMINE DRUG Active Hallucinates Un alicia INGREDI 5-03 ity of 00:00: [place] 00 Medical [place] morphine DA Active SV [facility] 6[facility]07 [place] 00:00: d 00 [facility] Morphine Propensi Active Hallucinatio Univers ty to ns 3-20 ity of adverse 00:00: [place] reaction 00 Medical s Branch MORPHINE DRUG Active Hallucinates Un alicia INGREDI 3-20 ity of 00:00: [place] 00 Medical Branch Ciproflo Propensi Active Rash That Univer s xacin ty to 5-04 within ity of adverse 00:00: taking a [place] reaction 00 large Medical s dosage. Branch CIPROFLO DRUG Active High ITCHING Univers XACIN INGREDI 5-04 ity of 00:00: [place] 00 Medical Branch MORPHINE Adverse Active Info Not [facility] Reaction Available [facility] Family History Family Member Diagnosis Comments Start Date Stop Date Source Natural brother -Colon cancer And erson Natural brother -Melanoma Michael on Natural brother -Thoracic or Lung MD [place] Natural brother -Unknown cancer MD [place] nderson Natural father -Pancreatic cancer MD [place] Paternal grandmother -Breast cancer MD [place] Social History Social Habit Start Date Stop Date Quantity Comments Source Exposure to Unable to assess Univers ity of SARS-CoV-2 [facility] [place] [facility] (event) Branch Alcohol intake 2019-07-10 2019-07-10 Lifetime MD Awais gerard 00:00:00 00:00:00 non-drinker (finding) Tobacco use and 2019-07-05 2019-07-05 Smokeless tobacco MD [place] exposure 00:00:00 00:00:00 non-user Sex Ass[birth year] At [birth year] Universit y of 00:00:00 00:00:00 [facility] Smoking Status Start Date Stop Date Source Unknown if ever smoked [facility] y [facility] Never smoker [facility] Medications Ordered Filled Start Stop Current Ordering Indication Dosage Frequency Signature Comments Components Source Medication Medication Date Date Medication? Clinician (SIG) Name Name dulaglutide Yes inject Univ ers (TRULICITY) 3-10 under the ity of 0.75 mg/0.5 11:39: skin. Once [place] mL PnIj 12 a week Medical (Mondays) Branch insulin Yes 60U inject 60 Unive rs degludec 3-10 Units ity of (TRESIBA 11:39: [place] FLEXTOUCH 12 skin Medical U-100 SC) daily. Branch iron,carb/v Yes Take by Un alicia it C/vit 3-10 mouth. ity of B12/folic 11:39: [place] (IRON 100 12 Medical PLUS ORAL) Branch dulaglutide Yes inject Univ ers (TRULICITY) 3-10 under the ity of 0.75 mg/0.5 11:39: skin. Once [place] mL PnIj 12 a week Medical (Mondays) Branch insulin Yes 60U inject 60 Unive rs degludec 3-10 Units ity of (TRESIBA 11:39: [place] the [place] FLEXTOUCH 12 skin Medical U-100 SC) daily. Branch iron,carb/v Yes Take by Un alicia it C/vit 3-10 mouth. ity of B12/folic 11:39: [place] (IRON 100 12 Medical PLUS ORAL) Branch dulaglutide Yes inject Univ ers (TRULICITY) 3-10 under the ity of 0.75 mg/0.5 11:39: skin. Once [place] mL PnIj 12 a week Medical (Mondays) Branch insulin Yes 60U inject 60 Unive rs degludec 3-10 Units ity of (TRESIBA 11:39: under the [place] FLEXTOUCH 12 skin Medical U-100 SC) daily. Branch iron,carb/v Yes Take by Un alicia it C/vit 3-10 mouth. ity of B12/folic 11:39: [place] (IRON 100 12 Medical PLUS ORAL) Branch dulaglutide Yes inject Univ ers (TRULICITY) 3-10 under the ity of 0.75 mg/0.5 11:39: skin. Once [place] mL PnIj 12 a week Medical (Mondays) Branch insulin Yes 60U inject 60 Unive rs degludec 3-10 Units ity of (TRESIBA 11:39: under the [place] FLEXTOUCH 12 skin Medical U-100 SC) daily. Branch iron,carb/v Yes Take by Un alicia it C/vit 3-10 mouth. ity of B12/folic 11:39: [place] (IRON 100 12 Medical PLUS ORAL) Branch dulaglutide Yes inject Univ ers (TRULICITY) 3-10 under the ity of 0.75 mg/0.5 11:39: skin. Once [place] mL PnIj 12 a week Medical (Mondays) Branch insulin Yes 60U inject 60 Unive rs degludec 3-10 Units ity of (TRESIBA 11:39: under the [place] FLEXTOUCH 12 skin Medical U-100 SC) daily. Branch iron,carb/v Yes Take by Un alicia it C/vit 3-10 mouth. ity of B12/folic 11:39: [place] (IRON 100 12 Medical PLUS ORAL) Branch dulaglutide Yes inject Univ ers (TRULICITY) 3-10 under the ity of 0.75 mg/0.5 11:39: skin. Once [place] mL PnIj 12 a week Medical (Mondays) Branch insulin Yes 60U inject 60 Unive rs degludec 3-10 Units ity of (TRESIBA 11:39: under the [place] FLEXTOUCH 12 skin Medical U-100 SC) daily. Branch iron,carb/v Yes Take by Un alicia it C/vit 3-10 mouth. ity of B12/folic 11:39: [place] (IRON 100 12 Medical PLUS ORAL) Branch ferrous 0 Yes 325mg Take 325 Unive rs sulfate 325 3-10 mg by ity of mg (65 mg 11:39: mouth 3 [place] iron) EC 11 (three) Medical tablet times Branch daily with meals. ferrous 0 Yes 325mg Take 325 Unive rs sulfate 325 3-10 mg by ity of mg (65 mg 11:39: mouth 3 [place] iron) EC 11 (three) Medical tablet times Branch daily with meals. ferrous 0 Yes 325mg Take 325 Unive rs sulfate 325 3-10 mg by ity of mg (65 mg 11:39: mouth 3 [place] iron) EC 11 (three) Medical tablet times Branch daily with meals. ferrous 0 Yes 325mg Take 325 Unive rs sulfate 325 3-10 mg by ity of mg (65 mg 11:39: mouth 3 [place] iron) EC 11 (three) Medical tablet times Branch daily with meals. ferrous 0 Yes 325mg Take 325 Unive rs sulfate 325 3-10 mg by ity of mg (65 mg 11:39: mouth 3 [place] iron) EC 11 (three) Medical tablet times Branch daily with meals. ferrous 0 Yes 325mg Take 325 Unive rs sulfate 325 3-10 mg by ity of mg (65 mg 11:39: mouth 3 [place] iron) EC 11 (three) Medical tablet times Branch daily with meals. BIOTIN-ARTIS 0 Yes Take by Un alicia TIN ORAL 1-19 mouth. ity of 10:47: [place] Medical Branch BIOTIN-ARTIS 0 Yes Take by Un alicia TIN ORAL 1-19 mouth. ity of 10:47: [place] [facility] Branch BIOTIN-ARTIS 0 Yes Take by Un alicia TIN ORAL 1-19 mouth. ity of 10:47: [place] Medical Branch BIOTIN-ARTIS 0 Yes Take by Un alicia TIN ORAL 1-19 mouth. ity of 10:47: [place] [facility] Branch BIOTIN-ARTIS 0 Yes Take by Un alicia TIN ORAL 1-19 mouth. ity of 10:47: [place] 01 Medical Branch BIOTIN-ARTIS 0 Yes Take by Un alicia TIN ORAL 1-19 mouth. ity of 10:47: [place] Medical [facility] Nebivolol 2020-0 Yes [id number] 20mg Take 1 Uni vers 20 mg 1-19 tablet by ity of tablet 00:00: mouth [place] 00 daily. Medical Branch sodium 2020-0 Yes [id number] 1300mg Take 2 Un alicia bicarbonate 1-19 tablets by it y of 650 mg 00:00: mouth 2 [place] tablet 00 (two) Medical times Branch daily. diltiazem 2020-0 Yes [id number] 120mg Take 1 Un alicia 120 mg 24 1-19 capsule by ity of hr capsule 00:00: mouth [place] 00 daily. Medical Branch hydrALAZINE 0 Yes [id number] 50mg Take 1 U nivers 50 mg 1-19 tablet by ity of tablet 00:00: mouth 2 [place] 00 (two) Medical times Branch daily. furosemide 2020-0 Yes [id number] 20mg Take 1 U nivers 20 mg 1-19 tablet by ity of tablet 00:00: mouth [place] 00 every Medical morning Branch and evening. Cholecalcif 0 Yes [id number] 2000U Take 1 Univers lesley, 1-19 tablet by ity of Vitamin D3, 00:00: mouth [place] (VITAMIN 00 daily. Medical D3) 50 mcg Branch (2,000 unit) tablet sevelamer 2020-0 Yes [id number] 800mg Take 1 U nivers 800 mg 1-19 tablet by ity of tablet 00:00: mouth 3 [place] 00 (three) Medical times Branch daily with meals. Nebivolol 2020-0 Yes [id number] 20mg Take 1 Uni vers 20 mg 1-19 tablet by ity of tablet 00:00: mouth [place] 00 daily. Medical Branch sodium 2020-0 Yes [id number] 1300mg Take 2 Un alicia bicarbonate 1-19 tablets by it y of 650 mg 00:00: mouth 2 [place] tablet 00 (two) Medical times Branch daily. diltiazem 2020-0 Yes [id number] 120mg Take 1 Un alicia 120 mg 24 1-19 capsule by ity of hr capsule 00:00: mouth [place] 00 daily. Medical Branch hydrALAZINE 2020-0 Yes [id number] 50mg Take 1 U nivers 50 mg 1-19 tablet by ity of tablet 00:00: mouth 2 [place] 00 (two) Medical times Branch daily. furosemide 2020-0 Yes [id number] 20mg Take 1 U nivers 20 mg 1-19 tablet by ity of tablet 00:00: mouth [place] 00 every Medical morning Branch and evening. Cholecalcif 2020-0 Yes [id number] 2000U Take 1 Univers lesley, 1-19 tablet by ity of Vitamin D3, 00:00: mouth [place] (VITAMIN 00 daily. Medical D3) 50 mcg Branch (2,000 unit) tablet sevelamer 2020-0 Yes [id number] 800mg Take 1 U nivers 800 mg 1-19 tablet by ity of tablet 00:00: mouth 3 [place] 00 (three) Medical times Branch daily with meals. Nebivolol 2020-0 Yes [id number] 20mg Take 1 Uni vers 20 mg 1-19 tablet by ity of tablet 00:00: mouth [place] 00 daily. Medical Branch sodium 2020-0 Yes [id number] 1300mg Take 2 Un alicia bicarbonate 1-19 tablets by it y of 650 mg 00:00: mouth 2 [place] tablet 00 (two) Medical times Branch daily. diltiazem 2020-0 Yes [id number] 120mg Take 1 Un alicia 120 mg 24 1-19 capsule by ity of hr capsule 00:00: mouth [place] 00 daily. Medical Branch hydrALAZINE 2020-0 Yes [id number] 50mg Take 1 U nivers 50 mg 1-19 tablet by ity of tablet 00:00: mouth 2 [place] 00 (two) Medical times Branch daily. furosemide 2020-0 Yes [id number] 20mg Take 1 U nivers 20 mg 1-19 tablet by ity of tablet 00:00: mouth [place] 00 every Medical morning Branch and evening. Cholecalcif 2020-0 Yes [id number] 2000U Take 1 Univers lesley, 1-19 tablet by ity of Vitamin D3, 00:00: mouth [place] (VITAMIN 00 daily. Medical D3) 50 mcg Branch (2,000 unit) tablet sevelamer 202-0 Yes [id number] 800mg Take 1 U nivers 800 mg 1-19 tablet by ity of tablet 00:00: mouth 3 [place] 00 (three) Medical times Branch daily with meals. Nebivolol Yes [id number] 20mg Take 1 Uni vers 20 mg 1-19 tablet by ity of tablet 00:00: mouth [place] 00 daily. Medical Branch sodium Yes [id number] 1300mg Take 2 Un alicia bicarbonate 1-19 tablets by it y of 650 mg 00:00: mouth 2 [place] tablet 00 (two) Medical times Branch daily. diltiazem 0 Yes [id number] 120mg Take 1 Un alicia 120 mg 24 1-19 capsule by ity of hr capsule 00:00: mouth [place] 00 daily. Medical Branch hydrALAZINE Yes [id number] 50mg Take 1 U nivers 50 mg 1-19 tablet by ity of tablet 00:00: mouth 2 [place] 00 (two) Medical times Branch daily. furosemide Yes [id number] 20mg Take 1 U nivers 20 mg 1-19 tablet by ity of tablet 00:00: mouth [place] 00 every Medical morning Branch and evening. Cholecalcif Yes [id number] 2000U Take 1 Univers [place], 1-19 tablet by ity of Vitamin D3, 00:00: mouth [place] (VITAMIN 00 daily. Medical D3) 50 mcg Branch (2,000 unit) tablet sevelamer Yes [id number] 800mg Take 1 U nivers 800 mg 1-19 tablet by ity of tablet 00:00: mouth 3 [place] 00 (three) Medical times Branch daily with meals. Nebivolol Yes [id number] 20mg Take 1 Uni vers 20 mg 1-19 tablet by ity of tablet 00:00: mouth [place] 00 daily. Medical Branch sodium Yes [id number] 1300mg Take 2 Un alicia bicarbonate 1-19 tablets by it y of 650 mg 00:00: mouth 2 [place] tablet 00 (two) Medical times Branch daily. diltiazem 2020- Yes [id number] 120mg Take 1 Un alicia 120 mg 24 1-19 capsule by ity of hr capsule 00:00: mouth [place] 00 daily. Medical Branch hydrALAZINE Yes [id number] 50mg Take 1 U nivers 50 mg 1-19 tablet by ity of tablet 00:00: mouth 2 [place] 00 (two) Medical times Branch daily. furosemide Yes [id number] 20mg Take 1 U nivers 20 mg 1-19 tablet by ity of tablet 00:00: mouth [place] 00 every Medical morning Branch and evening. Cholecalcif 0 Yes [id number] 2000U Take 1 Univers les[place], 1-19 tablet by ity of Vitamin D3, 00:00: mouth [place] (VITAMIN 00 daily. Medical D3) 50 mcg Branch (2,000 unit) tablet sevelamer 0 Yes [id number] 800mg Take 1 U nivers 800 mg 1-19 tablet by ity of tablet 00:00: mouth 3 [place] 00 (three) Medical times Branch daily with meals. Nebivolol 0 Yes [id number] 20mg Take 1 Uni vers 20 mg 1-19 tablet by ity of tablet 00:00: mouth [place] 00 daily. Medical Branch sodium 2020-0 Yes [id number] 1300mg Take 2 Un alicia bicarbonate 1-19 tablets by it y of 650 mg 00:00: mouth 2 [place] tablet 00 (two) Medical times Branch daily. diltiazem 0 Yes [id number] 120mg Take 1 Un alicia 120 mg 24 1-19 capsule by ity of hr capsule 00:00: mouth [place] 00 daily. Medical Branch hydrALAZINE 0 Yes [id number] 50mg Take 1 U nivers 50 mg 1-19 tablet by ity of tablet 00:00: mouth 2 [place] 00 (two) Medical times Branch daily. furosemide 2020-0 Yes [id number] 20mg Take 1 U nivers 20 mg 1-19 tablet by ity of tablet 00:00: mouth [place] 00 every Medical morning Branch and evening. Cholecalcif 0 Yes [id number] 2000U Take 1 Univers lesley, 1-19 tablet by ity of Vitamin D3, 00:00: mouth [place] (VITAMIN 00 daily. Medical D3) 50 mcg Branch (2,000 unit) tablet sevelamer 0 Yes [id number] 800mg Take 1 U nivers 800 mg 1-19 tablet by ity of tablet 00:00: mouth 3 [place] 00 (three) Medical times Branch daily with meals. insulin 2019-0 Yes 35U inject 35 Unive rs aspart 7-31 Units ity of RAPID 14:30: under the [place] (NOVOLOG) 30 skin 3 Medical 100 unit/mL (three) Branc h injection times daily before meals. insulin 2020-0 Yes 35U inject 35 Unive rs aspart 7-31 Units ity of RAPID 14:30: under the [place] (NOVOLOG) 30 skin 3 Medical 100 unit/mL (three) Branc h injection times daily before meals. insulin 2020-0 Yes 35U inject 35 Unive rs aspart 7-31 Units ity of RAPID 14:30: under the [place] (NOVOLOG) 30 skin 3 Medical 100 unit/mL (three) Branc h injection times daily before meals. insulin 2020-0 Yes 35U inject 35 Unive rs aspart 7-31 Units ity of RAPID 14:30: under the [place] (NOVOLOG) 30 skin 3 Medical 100 unit/mL (three) Branc h injection times daily before meals. insulin 2020-0 Yes 35U inject 35 Unive rs aspart 7-31 Units ity of RAPID 14:30: under the [place] (NOVOLOG) 30 skin 3 Medical 100 unit/mL (three) Branc h injection times daily before meals. insulin 2020-0 Yes 35U inject 35 Unive rs aspart 7-31 Units ity of RAPID 14:30: under the [place] (NOVOLOG) 30 skin 3 Medical 100 unit/mL (three) Branc h injection times daily before meals. Contrave Contrave 2019-0 2020- No Jammie one daily [facility] Starter Starter 03-07-28 [place] times 7 [facility] - pack pack 00:00: 00:00 days, then Memori a 00 :00 bid, then l 2 am and 1 Outpati pm and ent then 2 bid Clinics Ciprofloxac Ciprofloxac 2019- 2020- No Jammie [address] [facility] in HCl in HCl 03-07 06- [facility] - 00:[facility]: [facility]:00 Memoria 00 :00 l Outpati ent Clinics Diflucan Diflucan 2019- No Jammie as [facility] 03-07-31 [place] directed [facility] - 00:[facility]: 00:00 [facility] 00 :00 l Outpati ent Clinics Duloxetine Duloxetine 2018-10 Yes Jammie [address] [facility] HCl HCl 10-29 [facility] - 00:[facility]: Memoria 00 l Outpati ent Clinics BD BD 2018-10- No Jammie as [facility] Ultra-Fine 10-29 02-12 Millender directed [facility] Pen Maria T Pen 00:00: 00:00 Yuan lawanda [place] :00 l Outpati ent Clinics hydrALAZINE [...] Insulin) 100 unit/mL (3 mL) insulin pen Insulin Yes 4 (four) Univer s [place], 8-09 times ity of [place], [place] Medical ULTRAFINE Branch III MINI PEN) 31 x 3/16 " Ndle Insulin Yes 4 (four) Univer s [place], 8-09 times ity of Disposable, [place] Medical ULTRAFINE Branch III MINI PEN) 31 x 3/16 " Ndle Insulin Yes 4 (four) Univer s [place], 8-09 times ity of Disposable, [place] ULTRAFINE Branch III MINI PEN) 31 x 3/16 " Ndle Insulin Yes 4 (four) Univer s [place], 8-09 times ity of Dis[place], [place] ULTRAFINE Branch III MINI PEN) 31 x 3/16 " Ndle Insulin Yes 4 (four) Univer s [place], 8-09 times ity of Disposable, 00:[place] 00 Medical ULTRAFINE Branch III MINI PEN) 31 x 3/16 " Ndle Insulin Yes 4 (four) Univer s [place], 8-09 times ity of Disposable, 00:[place] 00 Medical ULTRAFINE Branch III MINI PEN) 31 x 3/16 " Ndle Insulin Yes 4 (four) Univer s [place], 8-09 times ity of Disposable, 00:00[place] ([place] Medical ULTRAFINE Branch III MINI PEN) 31 x 3/16 " Ndle Insulin 2011-10 Yes [id number] Univer s Safety 1-14 ity of [place], 00:00: [place] Disp, 00 Medical (NOVOFINE Branch AUTOCOVER) 30 x 1/3 " Ndle Insulin 2011-10 Yes [id number] Univer s Safety 1-14 ity of [place], 00:00: [place] Disp, 00 Medical (NOVOFINE Branch AUTOCOVER) 30 x 1/3 " Ndle Insulin 2011-10 Yes [id number] Univer s Safety 1-14 ity of [place], 00:00: [place] Disp, 00 Medical (NOVOFINE Branch AUTOCOVER) 30 x 1/3 " Ndle Insulin 2011-10 Yes [id number] Univer s Safety 1-14 ity of [place], 00:00: [place] Disp, 00 Medical (NOVOFINE Branch AUTOCOVER) 30 x 1/3 " Ndle Insulin 2011-10 Yes [id number] [email or web address] s Safety 1-14 ity of [place], 00:00: [place] Disp, 00 Medical (NOVOFINE Branch AUTOCOVER) 30 x 1/3 " Ndle Insulin 2011-10 Yes [id number] Univer s Safety 1-14 ity of [place], 00:00: [place] Disp, 00 Medical (NOVOFINE Branch AUTOCOVER) 30 x 1/3 " Ndle Insulin 2011-10 Yes [id number] Univer s Safety 1-14 ity of [place], 00:00: [place] Disp, 00 Medical (NOVOFINE Branch AUTOCOVER) 30 x 1/3 " Ndle blood sugar Yes [id number] Monitor BG Univers diagnostic 4-23 6 times a ity of (FREESTYLE 00:00: day [place] LITE 00 Medical STRIPS) Branch strip blood sugar Yes [id number] Monitor BG Univers diagnostic 4-23 6 times a ity of (FREESTYLE 00:00: day [place] LITE 00 Medical STRIPS) Branch strip blood sugar Yes [id number] Monitor BG Univers diagnostic 4-23 6 times a ity of (FREESTYLE 00:00: day [place] LITE 00 Medical STRIPS) Branch strip blood sugar Yes [id number] Monitor BG Univers diagnostic 4-23 6 times a ity of (FREESTYLE 00:00: day [place] LITE 00 Medical STRIPS) Branch strip blood sugar Yes [id number] Monitor BG Univers diagnostic 4-23 6 times a ity of (FREESTYLE 00:00: day [place] LITE 00 Medical STRIPS) Branch strip blood sugar Yes [id number] Monitor BG Univers diagnostic 4-23 6 times a ity of (FREESTYLE 00:00: day [place] LITE 00 Medical STRIPS) Branch strip blood sugar Yes [id number] Monitor BG Univers diagnostic 4-23 6 times a ity of (FREESTYLE 00:00: day [place] LITE 00 Medical STRIPS) Branch strip HydrALAZINE HydrALAZINE Yes Jammie 1 tablet [facility] [...] (Smoking morning Yuan lawanda Det) [facility] Ciprofloxac Ciprofloxac Yes Jammie [address] [facility] in HCl in HCl [facility] Bystolic Bystolic Yes Jammie [address] [facility] Lisinopril Lisinopril Yes Jammie [address] [facility] Millender [facility] Yes Jammie [address] Vitamins Vitamins [facility] in evening [facility] Biotin Plus Biotin Plus Yes Jammie not [facility] Keratin Keratin Millender defined [facility] Clinics Ketoconazol Ketoconazol Yes Jammie [address] [facility] e e Millender applicatio [facility] - n to [facility]oria affected l [facility] Pravastatin Pravastatin Yes Jammie [address] [facility] Sodium Sodium Millender [facility] Levemir Levemir Yes Jammie as [facility] FlexTouch FlexTouch Millender directed [facility] Promethazin [...] [facility] [place] 3 [place] 3 Yes Jammie [address] [facility] [...] - Memoria l Outpati ent Clinics Procedures Procedure Date / Time Performed Performing Clinician [facility] e TRANSPLANT/EXT 2021-04-19 05:01:00 Doctor Unassigned, No [facility] PROVIDER CARDIOLOGY Name Medical Bran ch TESTING TRANSPLANT/EXT 2016-02-03 05:01:00 Doctor Unassigned, No [facility] PROVIDER CARDIOLOGY Name Medical Bran ch TESTING Plan of Care Planned Activity Planned Date Details Comments Source Future Scheduled Test 1982 00:00:00 COVID-19 Vaccination MD Vyas (1) [code = COVID-19 Vaccination (1)] Encounters Start End Encounter Admission Attending Care Care Encounter Source Date/Time Date/Time Type Type Clinicians Facility Department ID 2021-08-11 2021-08-11 Outpatient Izabel BARRETT [facility] [id number] Univers 09:00:00 09:00:00 OLEG [facility] 2021-08-11 2021-08-11 Outpatient Izabel BARRETT [facility] [id number] Univers 09:00:00 09:00:00 OLEG [id number] ity [facility] 2021-08-11 2021-08-11 Telephone Nena, UNIVERSIT [id number] Univers 00:00:00 00:00:00 Oleg Y HEALTH 350.1.13.10 i ty of CLINICS [place] [id number] [facility] [address] Branch 2021-08-04 2021-08-04 Outpatient R [facility] [id number] Univers 16:45:00 16:45:00 [id number] ity [facility] 2021-07-29 2021-07-29 Outpatient R YENY [facility] [id number] Univers 14:00:00 14:00:00 [facility] [id number] ity [facility] 2021-07-29 2021-07-29 Outpatient R YENY [facility] [id number] Univers 14:00:00 14:00:00 YENY [facility] 2021-07-22 2021-07-22 Telephone [facility] [id number] Univers 00:00:00 00:00:00 Roscoe MARCELINOPEC 350.1.13.10 ity [facility] 4.2.7.2.[place] C[place] [id number] [facility] AND [place] 189 Branch DIABETES CLINIC 2021-07-21 2021-07-21 Telephone Nena, UNIVERSIT [id number] Univers 00:00:00 00:00:00 Oleg Y HEALTH 350.1.13.10 i ty of CLINICS [place]2.[place] [id number] [facility] 312 Branch 2021-07-17 2021-07-17 [facility] [id number] Univers 16:43:00 23:59:00 Encounter Roscoe Laughlin ERNIE 350.1.13.10 [facility] 4.2.7.2.686 [place] as [id number] [facility] 040 Branch 2021-07-17 2021-07-17 Outpatient R SELINA [facility] [id number] Univers 00:00:00 00:00:00 FORD ity o f [facility] 2021-06-30 2021-06-30 Telephone [facility], [facility] [id number] Univers 00:00:00 00:00:00 Oleg MULTISPEC 350.1.13.10 ity of [facility] 4.2.7.2.[address] [facility] [id number] [facility] [place] [address] Branch DIABETES CLINIC 2021-06-09 2021-06-09 Outpatient R NENA, [facility] [id number] Univers 09:00:00 09:00:00 OLEG [id number] ity [facility] 2021-06-09 2021-06-09 [facility] [id number] Univers 09:00:00 09:00:00 [facility]-05 2021-06-05 Outpatient R [facility] [id number] Univers 08:00:00 08:00:00 [id number] ity [facility] 2021-05-22 2021-05-22 [facility] [id number] Univers 16:30:00 16:30:00 [facility] [id number] ity [facility] 2021-05-22 2021-05-22 [facility] [id number] Univers 16:30:00 16:30:00 [facility] 2021-04-19 2021-04-19 Orders Doctor RANJAN 1.2.840.114 [id number] Univers 00:00:00 00:00:00 Only Unassigned, ERNIE 350.1.13.10 ity of [facility] 4.2.7.2.686 [place] [id number] [place] [address] Branch 2021-04-02 2021-04-02 Telephone Nena, [facility] 1.2.840.114 [id number] 00:00:00 00:00:00 [facility] 350.1.13.10 CLINICS 4.2.7.2.686 [id number] 2021-04-01 2021-04-01 [facility] 1.2.840.114 [id number] 00:00:00 00:00:00 Roscoe A MULTISPEC 350.1.13.10 IALTY 4.2.7.2.686 [place] [id number] [facility] 312 DIABETES CLINIC 2021-03-26 2021-03-26 [facility] [id number] Univers 13:00:00 13:00:00 ROSCOE [id number] ity o [facility] 2021-03-26 2021-03-26 [facility] [id number] Univers 08:25:00 08:25:00 ROSCOE white o [facility] 2021-03-12 2021-03-12 [facility] [id number] Univers 10:30:00 10:30:00 DAVID [id number] [facility] 2021-03-12 2021-03-12 Outpatient R KAYLEN [facility] [id number] Univers 10:30:00 10:30:00 DAVID [facility] 2021-03-05 2021-03-05 Out[facility] [id number] Univers 11:00:00 11:00:00 ROSCOE [id number] ity o [facility] 2021-03-05 2021-03-05 Outpatient [facility] [id number] Univers 08:00:00 08:00:00 ROSCOE white o [facility] 2021-02-16 2021-02-16 Outpatient [facility] [id number] Univers 10:00:00 10:00:00 KARLA [id number] [facility] 2021-02-16 2021-02-16 Outpatient [facility] [id number] Univers 10:00:00 10:00:00 KARLA barnetty [facility] 2021-01-06 2021-01-06 Outpatient R NENA [facility] [id number] Univers 11:30:00 11:30:00 OLEG [id number] ity [facility] 2020-12-31 2020-12-31 Outpatient R [facility] [id number] Univers 11:00:00 11:00:00 [id number] ity [facility] 2020-12-26 2020-12-26 Outpatient R SELINA [facility] [id number] Univers 16:30:00 16:30:00 ROSCOE [id number] ity o f [facility] 2020-12-26 2020-12-26 Outpatient R SELINA, [facility] [id number] Univers 00:00:00 00:00:00 ROSCOE ity o f [facility] 2020-12-17 2020-12-17 Outpatient R [facility] [id number] Univers 09:00:00 09:00:00 [id number] ity [facility] 2020-12-17 2020-12-17 Outpatient R [facility] [id number] Univers 09:00:00 09:00:00 [facility] 2020-11-18 2020-11-18 Outpatient R SELINA [facility] [id number] Univers 00:00:00 00:00:00 FORD ity o f [facility] 2020-10-28 2020-10-28 Outpatient R NENA [facility] [id number] Univers 11:30:00 11:30:00 OLEG [id number] ity [facility] 2020-10-28 2020-10-28 Outpatient R NENA [facility] [id number] Univers 11:30:00 11:30:00 [facility] 2020-10-23 2020-10-23 Outpatient R [facility] [id number] Univers 10:15:00 10:15:00 [id number] ity [facility] 2020-10-23 2020-10-23 [facility] [id number] Univers 10:15:00 10:15:00 OLEG ity of [facility] 2020-10-01 2020-10-01 Outpatient R SARA [facility] [id number] Univers 14:00:00 14:00:00 EMELINA [id number] ity of [facility] 2020-10-01 2020-10-01 Outpatient R SARA [facility] [id number] Univers 14:00:00 14:00:00 EMELINA ity of [facility] 2020-09-29 2020-09-29 Outpatient R [facility] [id number] Univers 13:45:00 13:45:00 [id number] ity of [facility] 2020-09-29 2020-09-29 Outpatient R NENA, [facility] [id number] Univers 13:45:00 13:45:00 OLEG ity of [facility] 2020-09-16 2020-09-16 Outpatient R NENA, [facility] [id number] Univers 10:30:00 10:30:00 OLEG ity of [facility] 2020-09-16 2020-09-16 Outpatient R NENA, [facility] [id number] Univers 10:30:00 10:30:00 OLEG ity [facility] 2020-07-29 2020-07-29 Outpatient R NENA, [facility] [id number] Univers 11:30:00 11:30:00 OLEG ity of [facility] 2020-05-13 2020-05-13 Outpatient R NENA, [facility] [id number] Univers 10:00:00 10:00:00 OLEG ity of [facility] 2020-05-13 2020-05-13 Outpatient R NENA, [facility] [id number] Univers 10:00:00 10:00:00 OLEG ity of [facility] 2020-05-09 2020-05-09 Outpatient R [facility] [id number] Univers 14:20:00 14:20:00 [id number] ity of [facility] 2020-05-09 2020-05-09 Outpatient R [facility] [id number] Univers 14:20:00 14:20:00 ity of [facility] 2020-04-25 2020-04-25 Outpatient R [facility] [id number] Univers 15:00:00 15:00:00 [id number] [facility] 2020-04-25 2020-04-25 Outpatient R NENA [facility] [id number] Univers 15:00:00 15:00:00 OLEG [facility] 2020-03-07 2020-03-07 [facility] [id number] 14:40:00 14:40:00 [facility] Medicine Outpati ent Clinics 2019-09-10 2019-09-10 [facility] [id number] 15:35:00 15:35:00 [facility] Medicine Outpati ent Clinics 2019-08-29 2019-08-29 [facility] [id number] 11:00:00 11:00:00 [facility] Medicine Outpati ent Clinics 2019-08-15 2019-08-15 [facility] [id number] 13:40:00 13:40:00 t [facility] Medicine Outpati ent Clinics 2019-02-09 2019-02-09 [facility] [id number] 10:00:00 10:00:00 t [facility] Medicine Outpati ent Clinics 2018-10-06 2018-10-06 [facility] [id number] 13:30:00 13:30:00 t [facility] Medicine Outpati ent Clinics 2018-10-05 2018-10-05 [facility] [id number] 11:52:00 11:52:00 t [facility] Medicine Outpati ent Clinics 2018-09-20 2018-09-20 [facility] [id number] 14:45:00 14:45:00 [facility] Medicine Outpati ent Clinics 2018-07-13 2018-07-13 [facility] [id number] 09:52:00 09:52:00 [facility] ent Clinics 2018-06-06 2018-06-06 [facility] [id number] 10:14:00 10:14:00 [facility] 2018-06-05 2018-06-05 [facility] [id number] 14:31:00 14:31:00 [facility] 2018-06-02 2018-06-02 [facility] [id number] 21:51:00 21:51:00 [facility] 2018-06-02 2018-06-02 [facility] [id number] 11:00:00 11:00:00 [facility] 2016-02-03 2016-02-03 Orders Doctor RANJAN 1.2.840.114 [id number] Univers 00:00:00 00:00:00 Only Unassigned, ERNIE 350.1.13.10 ity of [facility] 4.2.7.2.686 [facility] as [id number] [place] [address] Branch Results Test Description Test Time Test Comments [...] 86 Unit/L 45-117 N Completed by Nursing: [id number] 17:04:00 Test Item Value Reference Range Interpretation [...] andrew yby method. Completed by Nursing: NOPROTHROMBIN [id number] 17:03:00 Test Item Value Reference Range Interpretation Comments PT PATIENT (test code = PTP) 10.8 SECONDS 9.3-12.9 N INTERNATIONAL NORMAL RATIO 0.94 INR Unit 0.8-1.2 N (test code = INR) THROMBOPLASTIN TIME [id number] 17:03:00 Test Item Value Reference Range Interpretation Comments THROMBOPLASTIN TIME PARTIAL 28.7 SECONDS 26-35 N (test code = PTT) CBC W/O [id number] 16:35:00 Test Item Value Reference Range Interpretation [...] 10.40 fL 7.0-10.5 N MPV) CHEMISTRY 8 [id number] 16:30:00 Test Item Value Reference Range Interpretation [...] 58-135 L code = GFRBED) CHEMISTRY 8 [id number] 16:30:00 Test Item Value Reference Range Interpretation [...] L (test code = GFRBED) TROPONIN I [id number] 16:28:00 Test Item Value Reference Range Interpretation Comments TROPONIN I RAPID 0.00 ng/mL 0.00-0.08 N - The use o f serial (test code = sampling and te sting TROPIRAP) protocol is a recommended pra ctice- An elevated tro ponin level alone is often not sufficient for diagnosis of my ocardial infarction. GLUCOSE BEDSIDE [id number] 16:12:00 Test Item Value Reference Range Interpretation Comments GLUCOSE BEDSIDE TESTING (test code 283 mg/dL 70-110 H = GLUBED) - CT HEAD/BRAIN W/O [id number] 16:02:00 [facility] [place] [facility] 1975 Age/S: 43 / F [id number] Unit #: [id number] Loc: [place] [address] Phys: Robyn Moffett MD Acct: [id number] Dis Date: Status: REG ER PHONE #: [phone] Exam Date: 07/07/2019 5682 FAX #: Reason: Code Str raine EXAMS: CPT: [id number] CT HEAD/BRAIN W/O CONT 57202 EXAMINATION: - CT HEAD/BRAIN W/O CONT. LOCATION: [...] PAGE 1 Signed Report (CONTINUED)Name: INGRIS MCLEAN [facility] : 1975 Age/S: 43 / F [address] Unit #: [id number] Loc: [place] [address] Phys: Robyn Moffett MD Acct: [id number] Dis Date: Status: REG ER PHONE #: [phone] Exam Date: 07/07/2019 1401 FAX #: Reason: Code Stroke EXAMS: CPT: [id number] CT HEAD/BRAIN W/O CONT 92156 <Continued> CC: Fani Colon GEOSPATIAL SCIENTIST; Robyn Moffett MD Technologist:MARY HENLEY, RT(R)(CT)(MR) CTDI: DLP: Trnscb Date/Time: 07/07/2019 (7442) [email or web address] Orig Print D/T: S: 07/07/2019 (1589) PAGE 2 Signed Report
[2021-09-07 05:34] LABS: Urine Blood 1+ (Negative); Urine Glucose 1+ (Negative); Urine Protein 3+ (Negative); Urine pH 6.5 (5.0-7.0)
[2021-09-07 05:37] LABS: Absolute Lymphocytes (CBC) 1.8 K/uL (0.7-4.9); Basophils % 0.7 % (0-1.3); Hematocrit 33.7 % (36.0-45.0); MPV 8.7 fL (7.6-11.3); RBC Red Blood Cell Count 3.95 M/uL (3.86-4.86)
[2021-09-07] MEDS ORDERED: ONDANSETRON 4 MG/2 ML VIAL ONE ×2 (05:41→10:36)
[2021-09-07] MEDS ORDERED: PROMETHAZINE INJ 25 MG/ML AMP ONE ×5 (05:45→23:04)
[2021-09-07 05:51] LABS: ALT/SGPT 12 U/L (12-78); AST/SGOT 10 U/L (15-37); Albumin 1.7 g/dL (3.4-5.0); Alkaline Phosphatase 87 U/L (45-117); BUN Blood Urea Nitrogen 46 mg/dL (7-18); Bicarbonate 19 mmol/L (21-32); Bilirubin Direct < 0.1 mg/dL (0-0.2); Bilirubin Total 0.2 mg/dL (0.2-1.0); Glucose Level 216 mg/dL (74-106); Lipase 86 U/L (73-393); Potassium 5.1 mmol/L (3.5-5.1); Protein, Total 6.4 g/dL (6.4-8.2); Sodium Level 140 mmol/L (136-145)
[2021-09-07] MEDS ORDERED: NA CHLORIDE 0.9% 1,000 ML ONE ×2 (06:25→17:29)
[2021-09-07] MEDS ORDERED: MEPERIDINE HCL 25 MG/ML SYR ONE (06:25)
--- NOTE | 2021-09-07 07:32 | RAD REPORT ---
EXAM DESCRIPTION: CT - Abdomen Pelvis Wo Contrast - 09/07/2021 7:23 am CLINICAL HISTORY: Abd pain;Nausea / vomiting Prior appendectomy and cholecystectomy COMPARISON: [place] Protocol dated 08/25/2020 TECHNIQUE: Axial [address] imaging of the abdomen and pelvis was performed without IV contrast. No IV contrast was given because of allergy, abnormal renal function, patient refusal or physician re quest. No oral contrast administered. All CT scans are performed using dose optimization technique as appropriate and may include automated exposure control or mA/KV adjustment according to patient size. FINDINGS: No suspicious findings in the lung bases. The liver, spleen and pancreas show no suspicious findings on non-contrast imaging. Cholecystectomy c lips are present. No biliary tree dilatation. No hydronephrosis or suspicious renal mass. No obstructing or nonobstructing calculi seen. Pelvic chaitanya or phleboliths are present. No significant adrenal finding. Isodense renal masses and pyelonephritis cannot be excluded in the absence of IV contrast. The urinary bladder is without significant finding. Uterus and ovaries show no suspicious findings on noncontrast imaging. No dilated bowel loops or bowel wall thickening. Appendectomy clips are present. No free air, free fl uid or inflammatory stranding. No hernia, mass or bulky lymphadenopathy. No suspicious bony findings. IMPRESSION: Non-contrast enhanced CT abdomen and pelvis imaging show no significant or suspicious fi nding. A small bowel enteritis could still be present and occult to CT imaging. Full assessment is limited is the absence of IV contrast.
[2021-09-07 07:44] LABS: Urine Bacteria <20 /HPF (<20); Urine RBC <5 /HPF (NONE SEEN)
--- NOTE | 2021-09-07 09:21 | ER ---
Nurse's Notes [facility] Name: Keiry Umaña Age: 45 yrs Sex: Female : 1975 Arrival Date: 09/07/2021 Time: 04:34 Bed 19 Private MD: Diagnosis: Abdominal tenderness;Acute kidney failure, unspecified-on chronic;Type 1 diabetes mellitus with hyperglycemia;Elevated white blood cell count Presentation: 09/07 04:42 Chief complaint: Patient states: Sudden onset of vaginal pain that began at 0130, lp1 reports low back pain for a few days; Denies pain with urination; Reports vomiting after pain onset. Coronavirus screen: At this time, the client does not indicate any symptoms associated with coronavirus-19. Ebola Screen: No symptoms or risks identified at this time. 04:42 Method Of Arrival: Ambulatory lp1 04:45 Initial Sepsis Screen: Does the patient meet any 2 criteria? No. Patient's initial lp1 sepsis screen is negative. Does the patient have a suspected source of infection? No. Patient's initial sepsis screen is negative. Risk Assessment: Do you want to hurt yourself or someone else? Patient reports no desire to harm self or others. Onset of symptoms was September 07, 2021 at 01:30. 04:45 Acuity: CHERYL 3 lp1 Triage Assessment: 05:38 General: Appears in no apparent distress. Behavior is calm, cooperative, appropriate kd3 for age. GI: Reports. 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 LMP 08/10/2021 lp1 Historical: - Allergies: 04:44 Morphine; lp1 04:44 KETAMINE; lp1 - Home Meds: 04:44 aspirin 81 mg Oral chew 1 tab once daily [Active]; Bystolic 5 mg Oral tab 1 tab once lp1 daily [Active]; D-3 50 chol 50,000iu 1x week [Active]; high cholesterol medication [Active]; levimer 50 units twice a day [Active]; lisinopril Oral [Active]; metformin 500 mg Oral tab 1 tab 2 times per day [Active]; Novolog 15 units three times a day [Active]; Vitamin Oral tab 1 tab once daily [Active]; Trulicity subcutaneous [Active]; - PMHx: 04:44 bilateral foot amputee; Diabetes - IDDM; ESRD; High Cholesterol; Hypertension; PCOS; lp1 - PSHx: 04:44 Appendectomy; Bilteral BKA; Cholecystectomy; lp1 - Immunization history:: Adult Immunizations up to date. - Social history:: Smoking status: Patient denies any tobacco usage or history of. Screenin:38 Abuse screen: Denies threats or abuse. Denies injuries from another. Nutritional kd3 screening: No deficits noted. Tuberculosis screening: No symptoms or risk factors identified. Fall Risk IV access (20 points). Assessment: 05:00 General: Appears uncomfortable, obese, Behavior is calm, cooperative. Pain: Complains bb of pain in suprapubic area. Neuro: Level of Consciousness is awake, alert, obeys commands, Oriented to person, place, time, situation. Cardiovascular: Heart tones S1 S2 present Capillary refill < 3 seconds Patient's skin is warm and dry. Respiratory: Respiratory effort is even, unlabored, Respiratory pattern is regular, Breath sounds are clear bilaterally. GI: Abdomen is obese, Bowel sounds present X 4 quads. Abd is soft X 4 quads Abdomen is tender to palpation in suprapubic area. Derm: Skin is pink, warm \T\ dry. Musculoskeletal: Amputation of right leg and left leg. 05:41 Reassessment:. kd3 Vital Signs: 04:45 BP 154 / 124; Pulse 88; Resp 20; Temp 98.1(O); Pulse Ox 100% on R/A; Weight 117.93 kg lp1 (R); Height 5 ft. 8 in. (172.72 cm); Pain 8/10; 04:49 BP 177 / 93; lp1 05:15 BP 176 / 75; Pulse 94; Resp 18 S; Pulse Ox 100% on R/A; bb 07:15 BP 168 / 63; Pulse 70; Resp 18; Pulse Ox 99% on R/A; sl2 09:30 BP 168 / 84; Pulse 78; Resp 18; Pulse Ox 100% ; sl2 10:15 BP 166 / 87; Pulse 73; Resp 18; Temp 98.2; Pulse Ox 100% ; sl2 11:00 BP 164 / 73; Pulse 70; Resp 18; Temp 97.8(O); Pulse Ox 99% ; sl2 12:00 BP 168 / 86; Pulse 71; Resp 18; Pulse Ox 100% on R/A; sl2 13:00 BP 122 / 72; Pulse 78; Resp 18; Temp 98.1(O); Pulse Ox 100% on R/A; sl2 14:00 BP 138 / 76; Pulse 75; Resp 18; Pulse Ox 99% on R/A; sl2 16:44 BP 156 / 72; Pulse 76; Resp 17; Temp 97.8(O); Pulse Ox 99% on R/A; mh5 17:00 BP 152 / 76; Pulse 76; Resp 16; Pulse Ox 100% on R/A; sl2 18:00 BP 153 / 78; Pulse 80; Resp 18; Temp 97.9(O); Pulse Ox 99% on R/A; sl2 04:45 Body Mass Index 39.53 (117.93 kg, 172.72 cm) lp1 ED Course: 04:34 Patient arrived in ED. bp1 04:45 Arm band placed on right wrist. lp1 04:47 Triage completed. lp1 05:03 Sal Phillips MD is Attending Physician. [facility] 05:15 Initial lab(s) drawn, by mo, sent to lab. Urine collected: clean catch specimen, clear. bb Inserted saline lock: 18 gauge in right antecubital area, using aseptic technique. Blood collected. 05:24 Stephanie Ku, RN is Primary Nurse. kd3 05:31 Basic Metabolic Panel Sent. kd3 05:31 CBC with Diff Sent. kd3 05:31 Hepatic Function Sent. kd3 05:31 Lipase Sent. kd3 05:38 Patient has correct armband on for positive identification. Placed in gown. Bed in low kd3 position. Call light in reach. Side rails up X2. 07:23 CT Abd/Pelvis - Without Contrast In Process Unspecified. EDMS 08:17 Attending Physician role handed off by Sal Phillips MD sonali 08:17 Joe Vyas MD is Attending Physician. sonali 08:20 Patient moved to radiology dept. sl2 08:55 Patient moved back from ultrasound. sl2 09:02 Transvaginal Study Probe In Process Unspecified. EDMS 09:19 Flako Chapman MD is Hospitalizing Provider. sonali 10:30 COVID swab sent to lab. 5 10:57 Urine Microscopic Only Sent. 5 12:32 Assist provider with pelvic exam: Set up pelvic tray. Performed by Joe [email or web address] Specimens sent to lab. Patient tolerated well. 17:20 GC (GONORR/CHLAMYDIA) Probe Sent. [facility] Administered Medications: 05:51 Drug: Phenergan (promethazine) 12.5 mg Route: IVP; Site: left antecubital; bb 07:30 Follow up: Response: No adverse reaction sl2 06:36 Drug: Demerol (meperidine) 25 mg Route: IVP; Site: left antecubital; kd3 07:30 Follow up: Response: No adverse reaction sl2 06:36 Drug: NS 0.9% 1000 ml Route: IV; Rate: 1000 ml; Site: left antecubital; kd3 08:00 Follow up: IV Status: Completed infusion; IV Intake: 1000ml sl2 07:10 Drug: Phenergan (promethazine) 12.5 mg Route: IVP; Site: right antecubital; sl2 08:30 Follow up: Response: No adverse reaction sl2 10:56 Follow up: Response: No adverse reaction sl2 09:35 Drug: Zosyn (piperacillin-tazobactam) 3.375 grams Route: IVPB; Infused Over: 60 mins; sl2 Site: left antecubital; 10:56 Follow up: Response: No adverse reaction; IV Status: Completed infusion sl2 10:55 Not Given (Patient Refused): fentaNYL (PF) 50 mcg IVP once; RASS on ADMIN: Combtv4, sl2 Very Agttd3, Agttd2, Rstlss1, AlertClm0, Drwsy-1, Lt Sdtn-2, Mod Sdtn-3, Dp Sdtn-4, UnArsble-5 10:55 Not Given (Patient Refused): Zofran (Ondansetron) 4 mg IVP once; over 2 minutes sl2 11:50 Drug: fentaNYL (PF) 50 mcg Route: IVP; Site: left antecubital; sl2 13:03 Follow up: Response: No adverse reaction; Pain is decreased sl2 12:45 Drug: Phenergan (promethazine) 12.5 mg Route: IVP; Site: left antecubital; sl2 13:03 Follow up: Response: No adverse reaction; Nausea is decreased sl2 12:52 Drug: Rocephin (cefTRIAXone) 1 grams Route: IV; Rate: per protocol; Site: left sl2 antecubital; 13:03 Follow up: Response: No adverse reaction; IV Status: Completed infusion; IV Intake: [id number] 13:02 Drug: DiFLUcan (fluconazole) 200 mg Route: PO; sl2 16:00 Follow up: Response: No adverse reaction sl2 13:02 Drug: Zithromax (azithromycin) 1 grams Route: PO; sl2 16:00 Follow up: Response: No adverse reaction sl2 13:03 Not Given (Patient Refused): Zofran (Ondansetron) 4 mg IVP once; over 2 minutes sl2 Intake: 08:00 IV: 1000ml; Total: 1000ml. sl2 13:03 IV: 10ml; Total: 1010ml. sl2 Outcome: 09:20 Decision to Hospitalize by Provider. [facility] 09/08 09:41 Patient left the ED. [facility] Signatures: Dispatcher [employer] EDMS Joe Vyas MD MD cha Ballard, Brenda, RN RN Sobeida Quan RN RN 1 Talisha Dowell [facility] Christy Barros Maurice, MD MD 7 Jacqueline Wang RN RN sl2 Stephanie Ku RN RN kd3
--- NOTE | 2021-09-07 09:21 | EDPHYS ---
Physician Documentation [facility] Name: Keiry Umaña Age: 45 yrs Sex: Female : 1975 Arrival Date: 09/07/2021 Time: 04:34 Bed 19 Private MD: KELLY Physician Joe Vyas HPI: 09/07 06:24 This 45 yrs old Female presents to ER via Ambulatory with complaints of Vomiting, mh7 Vaginal Pain. 06:24 The patient presents to the emergency department with nausea, that is moderate, mh7 vomiting, that is intermittent, described as clear fluid, abdominal pain, of the suprapubic area, described as intermittent, vague,\\E\\ waxing and waning, and does not radiate. Onset: The symptoms/episode began/occurred this morning, today. Possible causes: unknown. The symptoms are aggravated by nothing. The symptoms are alleviated by nothing. Associated signs and symptoms: Pertinent negatives: anorexia, belching, constipation, diarrhea, dysuria, fever, flatulence, GI bleeding, hematuria, vaginal discharge. Severity of symptoms: At their worst the symptoms were moderate today, in the emergency department the symptoms are unchanged. 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 lp1 Historical: - Allergies: 04:44 Morphine; lp1 04:44 KETAMINE; lp1 - Home Meds: 04:44 aspirin 81 mg Oral chew 1 tab once daily [Active]; Bystolic 5 mg Oral tab 1 tab once lp1 daily [Active]; D-3 50 chol 50,000iu 1x week [Active]; high cholesterol medication [Active]; levimer 50 units twice a day [Active]; lisinopril Oral [Active]; metformin 500 mg Oral tab 1 tab 2 times per day [Active]; Novolog 15 units three times a day [Active]; Vitamin Oral tab 1 tab once daily [Active]; Trulicity subcutaneous [Active]; - PMHx: 04:44 bilateral foot amputee; Diabetes - IDDM; ESRD; High Cholesterol; Hypertension; PCOS; lp1 - PSHx: 04:44 Appendectomy; Bilteral BKA; Cholecystectomy; lp1 - Immunization history:: Adult Immunizations up to date. - Social history:: Smoking status: Patient denies any tobacco usage or history of. ROS: 06:24 Constitutional: Negative for fever, chills, and weight loss, Eyes: Negative for injury, mh7 pain, redness, and discharge, ENT: Negative for injury, pain, and discharge, Neck: Negative for injury, pain, and swelling, Cardiovascular: Negative for chest pain, palpitations, and edema, Respiratory: Negative for shortness of breath, cough, wheezing, and pleuritic chest pain, Back: Negative for injury and pain, : Negative for injury, bleeding, discharge, and swelling, MS/Extremity: Negative for injury and deformity, Skin: Negative for injury, rash, and discoloration, Neuro: Negative for headache, weakness, numbness, tingling, and seizure, Psych: Negative for depression, anxiety, suicide ideation, homicidal ideation, and hallucinations, Allergy/Immunology: Negative for hives, rash, and allergies, Endocrine: Negative for neck swelling, polydipsia, polyuria, polyphagia, and marked weight changes, Hematologic/Lymphatic: Negative for swollen nodes, abnormal bleeding, and unusual bruising. Exam: 06:24 Head/Face: Normocephalic, atraumatic. Eyes: Pupils equal round and reactive to light, mh7 extra-ocular motions intact. Lids and lashes normal. Conjunctiva and sclera are non-icteric and not injected. Cornea within normal limits. Periorbital areas with no swelling, redness, or edema. Neck: Trachea midline, no thyromegaly or masses palpated, and no cervical lymphadenopathy. Supple, full range of motion without nuchal rigidity, or vertebral point tenderness. No Meningismus. Chest/axilla: Normal chest wall appearance and motion. Nontender with no deformity. No lesions are appreciated. Cardiovascular: Regular rate and rhythm with a normal S1 and S2. No gallops, murmurs, or rubs. Normal PMI, no JVD. No pulse deficits. Respiratory: Lungs have equal breath sounds bilaterally, clear to auscultation and percussion. No rales, rhonchi or wheezes noted. No increased work of breathing, no retractions or nasal flaring. Skin: Warm, dry with normal turgor. Normal color with no rashes, no lesions, and no evidence of cellulitis. MS/ Extremity: Pulses equal, no cyanosis. Neurovascular intact. Full, normal range of motion. Neuro: Awake and alert, GCS 15, oriented to person, place, time, and situation. Cranial nerves II-XII grossly intact. Motor strength 5/5 in all extremities. Sensory grossly intact. Cerebellar exam normal. Normal gait. Psych: Awake, alert, with orientation to person, place and time. Behavior, mood, and affect are within normal limits. 06:24 Constitutional: The patient appears in no acute distress, alert, awake, uncomfortable. 06:24 Abdomen/GI: Inspection: obese Bowel sounds: normal, in all quadrants, Palpation: mild abdominal tenderness, in the suprapubic area, mass, is not appreciated, rebound tenderness, is not appreciated, voluntary guarding, is not appreciated, involuntary guarding, is not appreciated, no appreciated organomegaly, Rectal exam: the exam is deferred, because of patient request, Indicators: McBurney's point is not tender, Austin's sign is negative, Rovsing's sign is negative, Obturator sign is negative, Psoas sign is negative, Liver: no appreciated palpable abnormalities, Hernia: not appreciated. 06:24 : CVA tenderness, is absent, Pelvic Exam: The exam is refused by the patient/guardian. The risks and consequences are understood by the patient. 12:22 : Pelvic Exam: External exam: is normal, Speculum exam: no bleeding is noted, os that sonali is closed, bimanual exam reveals no cervical motion tenderness, os that is open, discharge, white, Jennifer. Vital Signs: 04:45 BP 154 / 124; Pulse 88; Resp 20; Temp 98.1(O); Pulse Ox 100% on R/A; Weight 117.93 kg lp1 (R); Height 5 ft. 8 in. (172.72 cm); Pain 8/10; 04:49 BP 177 / 93; lp1 05:15 BP 176 / 75; Pulse 94; Resp 18 S; Pulse Ox 100% on R/A; bb 07:15 BP 168 / 63; Pulse 70; Resp 18; Pulse Ox 99% on R/A; sl2 09:30 BP 168 / 84; Pulse 78; Resp 18; Pulse Ox 100% ; sl2 10:15 BP 166 / 87; Pulse 73; Resp 18; Temp 98.2; Pulse Ox 100% ; sl2 11:00 BP 164 / 73; Pulse 70; Resp 18; Temp 97.8(O); Pulse Ox 99% ; sl2 12:00 BP 168 / 86; Pulse 71; Resp 18; Pulse Ox 100% on R/A; sl2 13:00 BP 122 / 72; Pulse 78; Resp 18; Temp 98.1(O); Pulse Ox 100% on R/A; sl2 14:00 BP 138 / 76; Pulse 75; Resp 18; Pulse Ox 99% on R/A; sl2 16:44 BP 156 / 72; Pulse 76; Resp 17; Temp 97.8(O); Pulse Ox 99% on R/A; mh5 17:00 BP 152 / 76; Pulse 76; Resp 16; Pulse Ox 100% on R/A; sl2 18:00 BP 153 / 78; Pulse 80; Resp 18; Temp 97.9(O); Pulse Ox 99% on R/A; sl2 04:45 Body Mass Index 39.53 (117.93 kg, 172.72 cm) lp1 MDM: 08:15 Transition of care: After a detail discussion of the patient's case, care is 7 transferred to Joe Vyas MD. 08:17 Patient medically screened. sonali 09:15 Differential diagnosis: Nonspecific abd pain, gastritis, pancreatitis, appendicitis, sonali diverticulitis, viral gastroenteritis, gastroenteritis. Data reviewed: vital signs, nurses notes, lab test result(s), EKG, radiologic studies, CT scan, plain films. Data interpreted: quality assurance monitor final: rate is 70 beats/min, rhythm is regular, Pulse oximetry:. Test interpretation: by ED physician or midlevel provider: ECG, plain radiologic studies. Counseling: I had a detailed discussion with the patient and/or guardian regarding: the historical points, exam findings, and any diagnostic results supporting the discharge/admit diagnosis, lab results, radiology results, the need for further work-up and treatment in the hospital. 09/07 05:22 Order name: Basic Metabolic Panel; Complete Time: 06:18 lp1 09/07 05:22 Order name: CBC with Diff; Complete Time: 06:18 lp1 09/07 05:22 Order name: Hepatic Function; Complete Time: 06:18 lp1 09/07 05:22 Order name: Lipase; Complete Time: 06:18 lp1 09/07 05:34 Order name: Urine Dipstick-Ancillary; Complete Time: 06:18 EDMS 09/07 05:34 Order name: Urine --Ancillary (enter results); Complete Time: 07:20 cs9 09/07 07:01 Order name: Urine Microscopic Only [facility] 09/07 07:02 Order name: Urine Microscopic Only; Complete Time: 07:56 [facility] 09/07 10:29 Order name: COVID-19 SARS RT PCR (Document "Date of Onset" if Symptomatic) bd 09/07 11:53 Order name: GC (GONORR/CHLAMYDIA) Probe [facility] 09/07 11:54 Order name: GC (Patrick/Chl) Probe CX/URE [facility] 09/07 12:04 Order name: Urine Dipstick-Ancillary [facility] 09/07 13:10 Order name: C-Reactive Protein [facility] 09/07 13:10 Order name: Procalcitonin [facility] 09/07 06:24 Order name: CT Abd/Pelvis - Without Contrast; Complete Time: 07:56 [facility] 09/07 08:17 Order name: Transvaginal Study Probe [facility] 09/07 13:10 Order name: Sedimentation Rate, W[place] [facility] 09/07 23:28 Order name: Glucose, Ancillary Testing [facility] 09/08 03:58 Order name: CBC with Automated Diff [facility] 09/08 04:32 Order name: Comprehensive Metabolic Panel [facility] 09/08 04:32 Order name: Magnesium [facility] 09/08 07:43 Order name: Glucose, Ancillary Testing [facility] 09/08 08:50 Order name: US [facility] 09/07 05:22 Order name: IV Saline Lock; Complete Time: 05:31 [facility] 09/07 05:22 Order name: Labs collected and sent; Complete Time: 05:31 [facility] 09/07 05:22 Order name: Urine Dipstick-Ancillary (obtain specimen); Complete Time: 05:31 [facility] 09/07 05:22 Order name: Urine Test (obtain specimen); Complete Time: 05:36 [facility] 09/07 11:46 Order name: Pelvic Exam Setup; Complete Time: 13:03 [facility] 09/07 13:11 Order name: CONS Physician Consult EDPR Administered Medications: 05:51 Drug: Phenergan (promethazine) 12.5 mg Route: IVP; Site: left antecubital; bb 07:30 Follow up: Response: No adverse reaction sl2 06:36 Drug: Demerol (meperidine) 25 mg Route: IVP; Site: left antecubital; kd3 07:30 Follow up: Response: No adverse reaction sl2 06:36 Drug: NS 0.9% 1000 ml Route: IV; Rate: 1000 ml; Site: left antecubital; kd3 08:00 Follow up: IV Status: Completed infusion; IV Intake: 1000ml sl2 07:10 Drug: Phenergan (promethazine) 12.5 mg Route: IVP; Site: right antecubital; sl2 08:30 Follow up: Response: No adverse reaction sl2 10:56 Follow up: Response: No adverse reaction sl2 09:35 Drug: Zosyn (piperacillin-tazobactam) 3.375 grams Route: IVPB; Infused Over: 60 mins; sl2 Site: left antecubital; 10:56 Follow up: Response: No adverse reaction; IV Status: Completed infusion sl2 10:55 Not Given (Patient Refused): fentaNYL (PF) 50 mcg IVP once; RASS on ADMIN: Combtv4, sl2 Very Agttd3, Agttd2, Rstlss1, AlertClm0, Drwsy-1, Lt Sdtn-2, Mod Sdtn-3, Dp Sdtn-4, UnArsble-5 10:55 Not Given (Patient Refused): Zofran (Ondansetron) 4 mg IVP once; over 2 minutes sl2 11:50 Drug: fentaNYL (PF) 50 mcg Route: IVP; Site: left antecubital; sl2 13:03 Follow up: Response: No adverse reaction; Pain is decreased sl2 12:45 Drug: Phenergan (promethazine) 12.5 mg Route: IVP; Site: left antecubital; sl2 13:03 Follow up: Response: No adverse reaction; Nausea is decreased sl2 12:52 Drug: Rocephin (cefTRIAXone) 1 grams Route: IV; Rate: per protocol; Site: left sl2 antecubital; 13:03 Follow up: Response: No adverse reaction; IV Status: Completed infusion; IV Intake: [id number] 13:02 Drug: DiFLUcan (fluconazole) 200 mg Route: PO; sl2 16:00 Follow up: Response: No adverse reaction sl2 13:02 Drug: Zithromax (azithromycin) 1 grams Route: PO; sl2 16:00 Follow up: Response: No adverse reaction sl2 13:03 Not Given (Patient Refused): Zofran (Ondansetron) 4 mg IVP once; over 2 minutes sl2 Disposition Summary: 09/07/21 09:20 Hospitalization Ordered Hospitalization Status: Inpatient Admission sonali Provider: Flako Chapman cha Condition: Fair sonali Problem: new sonali Symptoms: have improved sonali Bed/Room Type: Standard sonali Location: Telemetry/MedSurg (Inpatient)(09/08/21 08:15) Room Assignment: [facility](09/08/21 08:15) Diagnosis - Abdominal tenderness sonali - Acute kidney failure, unspecified - on chronic sonali - Type 1 diabetes mellitus with hyperglycemia sonali - Elevated white blood cell count sonali Forms: - Medication Reconciliation Form sonali - SBAR form sonali 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 EDMS EDMS 17: 09:20 Telemetry/MedSurg (Inpatient) sonali bd 17:01 09:20 sonali bd 09/08 08:15 09/07 17:01 BR ER HOLD bd ss 09/08 08:15 09/07 17:01 ERHOLD- bd ss
[2021-09-07] MEDS ORDERED: NA CHLORIDE 0.9% 100 ML ONE (09:42)
[2021-09-07] MEDS ORDERED: PIPERACIL/TAZO 3.375 GM VIAL IV ONE (09:43)
--- NOTE | 2021-09-07 10:17 | RAD REPORT ---
EXAM DESCRIPTION: US - Transvaginal Study Probe - 09/07/2021 9:02 am CLINICAL HISTORY: PAIN Preliminary findings provided at the time of the study. COMPARISON: TRANSVAGINAL STUDY PROBE dated 05/09/2014; Abdomen Pelvis Wo Contrast dated 09/07/2021 TECHNIQUE: Endovaginal sonography was performed along with limited transabdominal sonography. FINDINGS: Uterus measures 8.1 x 4.2 x 4.5 cm. A 2.2 centimeter oval slightly hyperechoic focus in th e anterior fundal myometrium seen. This is most likely an intramural fibroid. There is no mass effect on the 7 millimeter thick endometrium. No endometrial mass, polyp or abnormal fluid collections seen . No suspicious blood or fluid collection in the cul de sac. Ovaries were visible on transabdominal approach. No suspicious ovarian or adnexal finding identifiabl e. IMPRESSION: No acute or worrisome pelvic ultrasound finding. Patient has a small 2 centimeter anteri or fundal fibroid.
[2021-09-07] MEDS ORDERED: FENTANYL CITR 100 MCG/2 ML ONE ×2 (10:36→21:41)
[2021-09-07] MEDS: PROMETHAZINE INJ 25 MG/ML AMP IV PRN ×3 (11:00→23:00)
[2021-09-07 12:04] LABS: Urine Blood 1+ (Negative); Urine Glucose Trace (Negative); Urine Protein 3+ (Negative); Urine Specific Gravity 1.025 (1.005-1.030); Urine pH 6.5 (5.0-7.0)
[2021-09-07] MEDS ORDERED: CEFTRIAXONE 1000 MG/VIAL ONE (12:45)
[2021-09-07] MEDS ORDERED: FLUCONAZOLE 100 MG TAB ONE (12:45)
[2021-09-07] MEDS ORDERED: AZITHROMYCIN 250 MG TAB ONE (12:45)
--- NOTE | 2021-09-07 13:14 | P.HP ---
Certification for Inpatient Patient admitted to: Inpatient With expected LOS: >2 Midnights Practitioner: I am a practitioner with admitting privileges, knowledge of patient current condition, hospital course, and medical plan of care. 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 Patient went to urinate at 1:30 AM, and afterwards felt severe stabbing pain. She felt as th ough the pain was vaginal. She reports pain was severe enough and causing some nausea. She had the sensation as though she was . Nothing seemed to worsen or alleviate this pain. It lasted for several hours until some minimal improvement so she presented to the ED. Currently still in pain but slightly improved. She denies any prior episodes of this. She is sexually active, one partner. Denies any vaginal discharge, denies any UTI symptoms. She does have a history of kidney stones, but did not feel anything like this before. In the ED, she was noted to have leukocytosis, CHUCK, and in pain. She denied any abdominal pain. CT abdomen/pelvis without contrast did not reveal any acute findings. Pelvic/transvaginal ultrasound only noted a possible anterior small fibroid, no other acute findings. Patient reported significant tenderness with the vaginal probe. ED physician MD performed pelvic exam, noting some discharge, likely yeast. Patient denied any significant change in her urinary habits. No significant change in her p.o. intake either. She was in her usual state of health yesterday evening before this occurred. She reports she has chronic retention issues. When she goes to urinate, she sits there up to 30-45 minutes at times until she can urinate. She feels like she fully empties her bladder when she does. She states this is due to her job. She does not want to leave her post, so she holds her urine in until she cannot anymore. Allergies ketamine Allergy (Severe, Verified 03/19/19 22:45) Anaphylaxis morphine Allergy (Intermediate, Verified 11/28/17 00:51) Anaphylaxis Home Medications: Insulin Aspart [Novolog Flexpen] 20 unit SQ AC PRN 02/04/16 Biotin/Keratin [Biotin Plus Keratin Tablet] 1 tab PO DAILY 05/23/20 Cyanocobalamin (Vitamin B-12) [Vitamin B12] 1 tab PO DAILY 05/23/20 Hydralazine HCl 50 mg PO BID 05/23/20 Insulin Degludec [Tresiba] 60 units SQ DAILY 05/23/20 Dulaglutide [Trulicity] 0.75 mg SQ EVERY 7TH DAY 08/26/20 Furosemide 20 mg PO BID 08/26/20 Nebivolol HCl [Bystolic] 1 tab PO DAILY 09/26/20 Sodium Bicarbonate 650 mg PO BID #60 tablet 09/27/20 Gabapentin [Neurontin*] 100 mg PO BEDTIME #30 cap 04/21/21 Ondansetron [Zofran] 4 mg PO Q6H PRN #30 tab 04/21/21 - Past Medical/Surgical History Diabetic: Yes -: Hypertension -: Hyperlipidemia -: IDDM -: Depression -: stage 4 kidney disease -: Appendectomy -: Cholecystectomy -: Bilateral BKAs Psychosocial/ Personal History: Patient lives at home with her family and 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 Mother -: Heart disease, Diabetes, Stroke Notes: - Social History Smoking Status: Never smoker Alcohol use: No CD- Drugs: No Caffeine use: Yes Place of Residence: Home Review of Systems 10-point ROS is otherwise unremarkable Physical Examination - Physical Exam General: Alert, Oriented x3, Mild distress HEENT: EOMI, Sclerae nonicteric Neck: Supple Respiratory: Clear to auscultation bilaterally, Normal air movement Cardiovascular: Regular rate/rhythm, Edema (Trace bilateral lower extreme edema to ankles) Gastrointestinal: Soft and benign, Non-distended, Tenderness (Mild suprapubic tenderness) Musculoskeletal: No erythema, No tenderness Integumentary: Other (Small area of erythema with satellite lesions below pannus) Neurological: Normal speech, Normal strength at 5/5 x4 extr, Normal affect - Studies Laboratory Data (last 24 hrs) 09/07/21 05:15: WBC 15.30 H, Hgb 11.2 L, Hct 33.7 L, Plt Count 299 09/07/21 05:15: Sodium 140, Potassium 5.1, BUN 46 H, Creatinine 4.21 H, Glucose 216 H, Total Bilirubin 0.2, AST 10 L, ALT 12, Alkaline Phosphatase 87, Lipase 86 Assessment and Plan - Advance Directives Does patient have a Living Will: No Does patient have a Durable POA for Healthcare: No Physician Review Additional Text: Problem list CHUCK on CKD 4 Severe pelvic/vaginal pain Vaginal yeast infection Intertrigo Hypertension Insulin-dependent DM 2 PCOS We will admit patient, start IV fluids, check renal ultrasound Nephrology consulted for CHUCK on CKD Initially concern for PID, possible urolithiasis, however no hydronephrosis, no evidence of obstructive or nonobstructive stone on CT 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 status, no significant increase in output Possibly worsening of chronic kidney disease due to her obstructive uropathy, may need urology consult if no improvement Patient also stated she has been taking daily biotin from many years now, may be contributing to her worsening kidney function, unclear Code: Full Dispo: Anticipate DC home in ~2 days Time Spent Managing Pts Care (In Minutes): 60
[2021-09-07] MEDS: FLUCONAZOLE 100 MG TAB PO SCH (14:00)
[2021-09-07] MEDS: NA CHLORIDE 0.9% 1,000 ML IV SCH (17:07)
[2021-09-07] MEDS: INSULIN -REGULAR HUMAN 50 UNIT/0.5 ML ML SQ SCH ×2 (17:07→21:00)
[2021-09-07] MEDS ORDERED: HYDROCODONE/APAP 5/325 MG TAB PO PRN (17:07)
[2021-09-07] MEDS ORDERED: ACETAMINOPHEN 500 MG TAB PO PRN (17:07)
[2021-09-07] MEDS ORDERED: ONDANSETRON 4 MG/2 ML VIAL IV PRN (17:07)
[2021-09-07] MEDS: DOXYCYCLINE 100 MG CAP PO SCH (21:00)
[2021-09-07] MEDS ORDERED: METRONIDAZOLE 500mg IVPB 500 MG/100 ML BAG IV ONE (21:41)
[2021-09-07] MEDS: METRONIDAZOLE 500mg IVPB 500 MG/100 ML BAG IV SCH (23:00)
[2021-09-07] MEDS: FENTANYL CITR 100 MCG/2 ML IV PRN (23:00)
[2021-09-08] MEDS ORDERED: PROMETHAZINE INJ 25 MG/ML AMP ONE ×2 (02:57→07:12)
[2021-09-08] MEDS ORDERED: FENTANYL CITR 100 MCG/2 ML ONE ×2 (02:58→07:13)
[2021-09-08] MEDS ORDERED: NA CHLORIDE 0.9% 1,000 ML ONE (02:59)
[2021-09-08] MEDS: NA CHLORIDE 0.9% 1,000 ML IV SCH ×4 (03:10→20:30)
[2021-09-08] MEDS: FENTANYL CITR 100 MCG/2 ML IV PRN ×5 (03:10→23:34)
[2021-09-08] MEDS: PROMETHAZINE INJ 25 MG/ML AMP IV PRN ×5 (03:10→23:34)
[2021-09-08 03:55] LABS: Absolute Lymphocytes (CBC) 2.1 K/uL (0.7-4.9); Basophils % 0.8 % (0-1.3); Hematocrit 32.1 % (36.0-45.0); Lymphocytes % 16.8 % (15.3-44.8); MPV 8.4 fL (7.6-11.3); RBC Red Blood Cell Count 3.81 M/uL (3.86-4.86)
[2021-09-08 04:23] LABS: Albumin 1.5 g/dL (3.4-5.0); Bilirubin Total 0.2 mg/dL (0.2-1.0); Magnesium 1.8 mg/dL (1.8-2.4); Potassium 5.1 mmol/L (3.5-5.1); Protein, Total 5.7 g/dL (6.4-8.2)
[2021-09-08 06:53] VITALS: BMI 43.8
[2021-09-08] MEDS: INSULIN -REGULAR HUMAN 50 UNIT/0.5 ML ML SQ SCH ×4 (07:30→20:28)
--- NOTE | 2021-09-08 08:39 | CON ---
Date of Consultation: 09/07/2021 Chief Complaint: Chronic kidney stage 4, diabetes mellitus with renal manifestation, hypertension, b ilateral BKA after trauma. History Of Present Illness: The patient presented to the emergency room with sudden onset of severe pelvic pain and pain. She has some urinary symptoms, lower urinary tract symptoms, mainly patient complains of difficulty of voiding. She denies hematuria. She has some painful urination. Denies renal colic. Patient has persistent pain, stabbing pain in the lower pelvis over the last fe w days. The pain was lasting for several hours and had minimal improvement. She decided to come to the emergency room. The patient is medicated for pain and was started on antibiotics. CT scan was d one to rule out kidney stones and to rule out hydronephrosis. The patient was noted to have severe l eukocytosis as well as acute kidney injury on chronic kidney disease. She has underlying chronic kid higinio state stage 4. The patient is started on IV fluid to prevent renal hypoperfusion volu me resuscitation. Patient denies fever or chills. Denies syncope. Denies chest pain. Review of Systems: General: Denies fever or chills. Eyes: Denies vision changes. Ears, Nose, Mouth and Throat: Denies sore throat, earaches. Respiratory: Denies PND, orthopnea. Denies wheezing. GI: Has some nausea and vomiting. : Had difficulty in voiding and is complaining of pain with urination. Denies hematuria. All other systems reviewed and all are negative. Past Medical History: Hypertension, hyperlipidemia, depression, , stage IV chronic kidney, appendectomy, cholecystectomy, bilateral BKA due to trauma. 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 Family History: Father with cancer, hypertension, pancreatic cancer and is . Brother, lung cancer and is . Mother has diabetes and . Physical Examination: General: The patient is alert and oriented x3. Normal affect. Eyes: Anicteric sclerae. EOMI. Ears, Nose, Mouth, and Throat: Oral mucosa moist. No pallor. Neck: Supple. No bruits. Lungs: Clear to auscultation bilaterally. Heart: S1, S2. Abdomen: Soft, benign, obese. Extremities: Status post BKA. Laboratory Data: WBC 15.3, hemoglobin 11.2, hematocrit 33.7, platelet count 299. Sodium 140, potass ium 5.1, BUN 46, creatinine 4.1, glucose 215. Total bilirubin 0.2, AST 10, ALT 12, . Impression And Plan: Acute on chronic kidney injury severe . The pain patient . Continue to medicate with antibiotics and for evidence for PID and to rule out obstructi ve uropathy. CT scan did not show hydronephrosis. The patient will serial bladder scan to rule out increased postvoid residual volume. Acute kidney injury secondary to prerenal azotemia, likely there is some element of nonoliguric acute tubular necrosis secondary to sepsis. Monitor blood pressure. Continue IV fluids for volume resuscitation and continue broad-spectrum antibiotics. Check urine fo r proteinuria and screen for monoclonal gammopathy of unknown significance. EB/MODL Voice ID: [id number] Report ID: [id number]
--- NOTE | 2021-09-08 08:49 | RAD REPORT ---
EXAM DESCRIPTION: US - Renal Ultrasound-Complete - 09/07/2021 10:39 pm CLINICAL HISTORY: CHUCK, CKD COMPARISON: Renal Ultrasound-Complete dated 04/21/2021 FINDINGS: Mild bilateral echogenic kidneys noted. The right kidney measures 10.9 x 4.6 x 3.9 cm. No hydronephrosis, focal mass or perinephric fluid. The left kidney measures 10.1 x 5.7 x 4.3 cm.. No hydronephrosis, focal mass or perinephric fluid. The urinary bladder is incompletely distended without gross abnormality seen. IMPRESSION: Mildly echogenic kidneys bilaterally suggests mild underlying medical renal disease.
[2021-09-08] MEDS ORDERED: AZITHROMYCIN IV 500 MG in NA CHLORIDE 0.9% 250 ML IVPB SCH (09:00)
[2021-09-08] MEDS: DOXYCYCLINE 100 MG CAP PO SCH ×2 (09:00→20:29)
[2021-09-08] MEDS: METRONIDAZOLE 500mg IVPB 500 MG/100 ML BAG IV SCH (09:00)
[2021-09-08] MEDS: CEFTRIAXONE 1,000 MG in NA CHLORIDE 0.9% 50 ML IVPB SCH (09:00)
[2021-09-08] MEDS ORDERED: CEFTRIAXONE 1000 MG/VIAL ONE (09:59)
[2021-09-08] MEDS ORDERED: NA CHLORIDE 0.9% 50 ML ONE (10:01)
[2021-09-08] MEDS ORDERED: NA CHLORIDE 0.9% 500 ML IV ONE (11:18)
--- NOTE | 2021-09-08 15:09 | PN ---
Date of Progress Note: 09/08/2021 Subjective: The patient was admitted with acute kidney injury secondary to poor perfusion, ATN secon samuel to poor intake, superimposed with the diuresis. The patient had advanced kidney disease, stage IV. Physical Examination: Vital Signs: Blood pressure 165/94, pulse of 80, afebrile. Chest: Clear to auscultation. Heart: S1, S2. Regular. Abdomen: Soft, nontender. Extremities: Bilateral below-knee amputation. Neurologic: Alert. No focality. Laboratory Data: WBC 12.4, H and H 10.7/32.1. Sodium 142, potassium 5.1, bicarb 18, BUN 43, creatin ine 4, GFR of 12, calcium 7.5, albumin 1.5, corrected calcium is 9.4. Renal ultrasound was done, . , no hydronephrosis. Current Medications: The patient on include Tylenol, hydrocodone, ceftriaxone, fentanyl, insulin, me tronidazole. Assessment And Plan: 1.Acute kidney injury on advanced chronic kidney disease, nonoliguric, marginal hyperkalemia, second sweta to prerenal, superimposed with Lasix use. I am going to hold the Lasix. I am going to start the patient on IV hydration and we will follow up the patient closely. There is no severe hyperkalemia. Marginal acidosis. No uremic symptoms. I do not see the need to initiate any renal replacement th erapy for the time being with the expectation that the kidney function is going to be improved. 2.Hypertension, controlled, not optimal with the presence of acute kidney injury. Hold Lasix. I am going to start the patient on calcium channel elena and we will follow up with the patient. Pleas e avoid any nonsteroid or any JORGE inhibitor or ARB. 3.Hypocalcemia, mostly secondary to secondary hyperparathyroidism. I am going to send for PTH and v itamin D. 4.Anemia of chronic kidney disease, stable. 5.Acidosis, non-anion gap metabolic acidosis secondary to renal failure. We will start the patient on oral bicarb and we will follow up. 6.Marginal hyperkalemia. Hold Lasix. We will follow up. Improvement after hydration. No need for any binder. 7.Abdominal pain and gastroenteritis/gastroparesis as by primary. YON/MODL Voice ID: [id number] Report ID: [id number]
--- NOTE | 2021-09-08 19:36 | P.PN ---
Subjective Date of Service: 09/08/21 Chief Complaint: Severe pelvic/vaginal pain, CHUCK Patient complaining of persistent pain in the pelvic area. She is also reporting nausea. Physical Examination - Vital Signs Temperature: 99.4 F Blood Pressure: 197/90 Pulse: 82 Respirations: 16 Pulse Ox (%): 92 - Physical Exam General: Alert, In no apparent distress, Oriented x3 HEENT: Mucous membr. moist/pink Neck: Supple, JVD not distended Respiratory: Clear to auscultation bilaterally, Normal air movement Cardiovascular: No edema, Regular rate/rhythm, Normal S1 S2, No murmurs Capillary refill: <2 Seconds Gastrointestinal: Normal bowel sounds, Soft and benign, Non-distended, No tenderness Musculoskeletal: No swelling Integumentary: No rashes, No erythema, No cyanosis Neurological: Normal speech, Normal strength at 5/5 x4 extr Assessment And Plan - Plan Problem list CHUCK on CKD 4 Severe pelvic/vaginal pain Vaginal yeast infection Intertrigo Hypertension Insulin-dependent DM 2 PCOS Plan: Suspected PID. Patient has leukocytosis which is improving slowly. Continue current antibiotics. Follow cervical fluid culture. Nephrology consulted for CHUCK on CKD. Initially concern for possible urolithiasis, however no hydronephrosis, no evidence of obstructive or nonobstructive stone on CT No obvious BOX SEALING MACHINE OPERATOR pathology seen on CT or ultrasound Pelvic exam did not elicit cervical motion tenderness, but did note some disch arge likely yeast Patient also with small area of intertrigo Less likely kidney stone is nothing seen on imaging, no hydronephrosis. CHUCK, possibly prerenal. Pain management as needed
[2021-09-08] MEDS: metroNIDAZOLE 500 MG TABLET PO SCH (20:29)
[2021-09-08] MEDS: SODIUM BICARB 325 MG TAB PO SCH (20:29)
[2021-09-08] MEDS ORDERED: HYDRALAZINE HCL 20 MG/ML VIAL IV PRN (21:39)
[2021-09-08] MEDS ORDERED: ONDANSETRON 4 MG/2 ML VIAL IV PRN (21:39)
[2021-09-09] MEDS: FENTANYL CITR 100 MCG/2 ML IV PRN ×5 (03:44→21:11)
[2021-09-09] MEDS: PROMETHAZINE INJ 25 MG/ML AMP IV PRN ×5 (03:44→21:11)
[2021-09-09 04:56] LABS: Absolute Lymphocytes (CBC) 1.6 K/uL (0.7-4.9); Basophils % 0.7 % (0-1.3); Hematocrit 24.2 % (36.0-45.0); Lymphocytes % 11.3 % (15.3-44.8); MPV 8.9 fL (7.6-11.3); RBC Red Blood Cell Count 2.83 M/uL (3.86-4.86)
[2021-09-09 05:18] LABS: Albumin 1.6 g/dL (3.4-5.0); Phosphorus 4.1 mg/dL (2.5-4.9)
[2021-09-09 05:19] LABS: Thyroid Stimulating Hormone 4.51 uIU/mL (0.360-3.740)
[2021-09-09] MEDS: INSULIN -REGULAR HUMAN 50 UNIT/0.5 ML ML SQ SCH ×4 (07:30→21:00)
[2021-09-09] MEDS ORDERED: NA CHLORIDE 0.9% 100 ML ONE (07:36)
[2021-09-09] MEDS ORDERED: CEFTRIAXONE 1000 MG/VIAL ONE (07:36)
[2021-09-09 07:41] LABS: C.trachomatis RNA,TMA Not Detected (Not Detected)
[2021-09-09] MEDS: NA CHLORIDE 0.9% 1,000 ML IV SCH ×2 (08:00→18:34)
[2021-09-09] MEDS: SODIUM BICARB 325 MG TAB PO SCH ×3 (08:28→21:12)
[2021-09-09] MEDS: metroNIDAZOLE 500 MG TABLET PO SCH ×2 (08:29→21:12)
[2021-09-09] MEDS: DOXYCYCLINE 100 MG CAP PO SCH ×2 (08:29→21:12)
[2021-09-09] MEDS: AMLODIPINE 10 MG TAB PO SCH (08:29)
[2021-09-09] MEDS: CEFTRIAXONE 1,000 MG in NA CHLORIDE 0.9% 50 ML IVPB SCH (08:34)
--- NOTE | 2021-09-09 12:53 | PN ---
Date of Progress Note: 09/09/2021 Subjective: The patient was admitted with gastroenteritis/gastroparesis with acute kidney injury on advanced chronic kidney disease. The patient over the night started on aggressive hydration. Kidney function is slightly better, but the patient still has significant nausea and vomiting. Physical Examination: Vital Signs: When I saw the patient; blood pressure 154/74, pulse of 84, afebrile. Chest: Clear to auscultation. Heart: S1, S2. Regular. Abdomen: Soft, nontender, obese. Could not appreciate any organomegaly. Extremities: No edema. Bilateral below-knee amputation. Neurological: Alert, oriented x3. No focal. Laboratory Data: WBC 14.6, H and H 8.1/24.2, platelet 345. Sodium 139, potassium 5, bicarb 17, BUN 36, creatinine down to 3.8, GFR of 13, calcium 7.5, phosphorus 4.1, albumin 1.6, corrected calcium is 9.5. TSH 4.5, PTH 402. Urinalysis was negative for infection. Current Medications: The patient on include ceftriaxone, fluconazole, metronidazole, doxycycline, pr omethazine, amlodipine 10 mg, hydralazine, Tylenol, Zofran, sodium bicarb 650 b.i.d., hydrocodone. Assessment And Plan: 1.Acute kidney injury on advanced chronic kidney disease, normal-sized kidney, proteinuric, secondar y to diabetes nephropathy with nephrotic range of proteinuria. Full workup including serology and se rum protein electrophoresis before was done. I am going to continue to monitor the patient, continue hydration with current IV fluid, and we will follow up. 2.Secondary hyperparathyroidism. I will start the patient on calcitriol. No need for any binder. 3.Hypertension with the presence of acute kidney injury. Keep holding Lasix or any JORGE inhibitor or ARB. 4.Gastroparesis/gastroenteritis as by primary. Consider to downgrade the antibiotic. 5.Diabetes as by primary. YON/CHECO Voice ID: [id number] Report ID: [id number]
[2021-09-09] MEDS ORDERED: CALCITROL 0.25 MCG CAP PO SCH (13:00)
[2021-09-09] MEDS ORDERED: SODIUM CHLORIDE 0.9% 10ML INJ IV PRN (18:57)
--- NOTE | 2021-09-09 19:11 | P.PN ---
Subjective Date of Service: 09/09/21 Chief Complaint: Severe pelvic/vaginal pain, CHUCK Patient complaining of nausea but wants her diet advanced. She still complaining of pain in the pelvic area. Physical Examination - Vital Signs Temperature: 98.6 F Blood Pressure: 166/70 Pulse: 83 Respirations: 17 Pulse Ox (%): 100 Assessment And Plan - Plan Physical exam General: Alert, In no apparent distress, Oriented x3 HEENT: Mucous membr. moist/pink Respiratory: Clear to auscultation bilaterally, Normal air movement Cardiovascular: No edema, Regular rate/rhythm, Normal S1 S2, No murmurs Gastrointestinal: Normal bowel sounds, Soft and benign, Non-distended, No tenderness Musculoskeletal: No swelling Integumentary: No rashes, No erythema, No cyanosis Neurological: Normal speech, Normal strength at 5/5 x4 extr. Problem list CHUCK on CKD 4 Severe pelvic/vaginal pain Vaginal yeast infection Intertrigo Hypertension Insulin-dependent DM 2 PCOS Plan: Suspected PID but and gonorrhea and Chlamydia antigens are negative. Patient with leukocytosis. Continue current antibiotics. Follow cervical fluid culture. Nephrology consulted for CHUCK on CKD. Initially concern for possible urolithiasis, however no hydronephrosis, no evidence of obstructive or nonobstructive stone on CT No obvious FOIL STAMP OPERATOR pathology seen on CT or ultrasound Pelvic exam did not elicit cervical motion tenderness, but did note some discharge likely yeast Patient also with small area of intertrigo CHUCK, possibly prerenal with baseline chronic kidney disease. Pain management as needed. Start Protonix for possible gastritis given persistent nausea. Renal function is improved. Will discharge once renal function has adequately recovered. She will be referred to follow with FOIL STAMP OPERATOR as an outpatient.
[2021-09-09] MEDS: PANTOPRAZOLE 40 MG INJ IVP SCH (21:10)
[2021-09-10] MEDS: PROMETHAZINE INJ 25 MG/ML AMP IV PRN ×3 (01:23→09:52)
[2021-09-10] MEDS: FENTANYL CITR 100 MCG/2 ML IV PRN ×3 (01:24→09:54)
[2021-09-10] MEDS: NA CHLORIDE 0.9% 1,000 ML IV SCH (04:22)
[2021-09-10 05:23] LABS: Absolute Lymphocytes (CBC) 2.6 K/uL (0.7-4.9); Basophils % 0.8 % (0-1.3); Hematocrit 29.7 % (36.0-45.0); Lymphocytes % 23.6 % (15.3-44.8); MPV 8.7 fL (7.6-11.3); RBC Red Blood Cell Count 3.46 M/uL (3.86-4.86)
[2021-09-10 05:31] LABS: Albumin 1.4 g/dL (3.4-5.0); Phosphorus 4.3 mg/dL (2.5-4.9); Potassium 4.8 mmol/L (3.5-5.1)
[2021-09-10] MEDS ORDERED: CEFTRIAXONE 1000 MG/VIAL ONE (07:15)
[2021-09-10] MEDS ORDERED: NA CHLORIDE 0.9% 50 ML ONE (07:16)
[2021-09-10] MEDS: INSULIN -REGULAR HUMAN 50 UNIT/0.5 ML ML SQ SCH ×3 (07:30→16:30)
[2021-09-10] MEDS: PANTOPRAZOLE 40 MG INJ IVP SCH (08:08)
[2021-09-10] MEDS: CEFTRIAXONE 1,000 MG in NA CHLORIDE 0.9% 50 ML IVPB SCH (08:09)
[2021-09-10 08:55] VITALS: O2SAT 98
[2021-09-10] MEDS: metroNIDAZOLE 500 MG TABLET PO SCH (09:56)
[2021-09-10] MEDS: DOXYCYCLINE 100 MG CAP PO SCH (09:56)
[2021-09-10] MEDS: AMLODIPINE 10 MG TAB PO SCH (09:56)
[2021-09-10] MEDS: SODIUM BICARB 325 MG TAB PO SCH (09:57)
[2021-09-10 12:22] VITALS: BP 123/86; TEMP 97.7
[2021-09-10 12:52] LABS: C.diff Antigen/Toxin Ag neg : Tox neg (NEG : NEG)
[2021-09-10] MEDS: FLUCONAZOLE 100 MG TAB PO SCH (13:55)
[2021-09-10] MEDS ORDERED: SODIUM BICARB 325 MG TAB PO SCH (14:00)
--- NOTE | 2021-09-10 15:36 | PN ---
Date of Progress Note: 09/10/2021 Subjective: The patient was admitted with acute kidney injury on advanced chronic kidney disease sec ondary to diabetes nephropathy. The patient's baseline GFR of 16. The patient had gastroparesis upo n admission today. No nausea. No vomiting. Physical Examination: Vital Signs: Blood pressure 129/68, pulse of 67. The patient had good urine output. Chest: Clear to auscultation. Heart: S1, S2. Regular. Abdomen: Soft, nontender. Extremities: Bilateral below-knee amputation. Laboratory Data: WBC 10.9, H and H 9.8/29.7, platelets 256. Sodium 139, potassium 4.8, bicarb 16, B UN 39, creatinine 4.1, GFR of 12, calcium of 7, phosphorus 4.3, albumin 1.4, corrected calcium is 9. Current Medications: The patient on include; 1.Ceftriaxone. 2.Metronidazole. 3.Fluconazole. 4.Doxycycline. 5.Promethazine. 6.Amlodipine. 7.Tylenol. 8.Sodium bicarb 650 t.i.d. 9.Normal saline. 10.Fentanyl. 11.Calcitriol. Assessment And Plan: 1.Chronic kidney disease, stage 4, progression slowly. I had long discussion with the patient the n eed to initiate gradually to get prepared for renal replacement therapy. Apparently, the patient had already arrangement for living donor kidney transplant. The patient does not have any uremia, no se chet acidosis, no hyperkalemia. I do not see the urgency to start as inpatient. The patient to foll ow up with her primary parks recreation coordinator at [facility]. The patient understands and verbalized especially that the patient had a living donor. Advised the patient also to start active communication and weight lo ss to be able to get her transplant. 2.Hypertension, controlled, optimal. Continue current medications. 3.Acidosis, non-anion gap metabolic acidosis. I am going to see and increase the sodium bicarb. I do not see the need to initiate any renal replacement therapy for that. 4.Secondary hyperparathyroidism. Continue calcitriol. 5.Non-anion gap metabolic acidosis secondary to renal failure/IV fluid. I am going to discontinue I V fluid, increase sodium bicarb. We will follow up with primary. 6.Gastroparesis. Continue symptomatic treatment. 7.Diabetes as by primary. YON/LYNNEL Voice ID: [id number] Report ID: [id number]
--- NOTE | 2021-09-10 16:48 | P.PN ---
Subjective Date of Service: 09/10/21 Chief Complaint: Severe pelvic/vaginal pain, CHUCK Patient doing better today. Serum creatinine trended up to 4. Physical Examination - Vital Signs Temperature: 97.7 F Blood Pressure: 123/86 Pulse: 81 Respirations: 16 Pulse Ox (%): 100 Assessment And Plan - Plan Physical exam General: Alert, In no apparent distress, Oriented x3 HEENT: Mucous membr. moist/pink Respiratory: Clear to auscultation bilaterally, Normal air movement Cardiovascular: No edema, Regular rate/rhythm, Normal S1 S2, No murmurs Gastrointestinal: Normal bowel sounds, Soft and benign, Non-distended, No tenderness Musculoskeletal: No swelling Integumentary: No rashes, No erythema, No cyanosis Neurological: Normal speech, Normal strength at 5/5 x4 extr. Problem list CHUCK on CKD 4 Severe pelvic/vaginal pain Vaginal yeast infection Intertrigo Hypertension Insulin-dependent DM 2 PCOS Nonanionic gap metabolic acidosis Plan: Suspected PID but and gonorrhea and Chlamydia antigens are negative. Leukocytosis resolved. Continue current antibiotics. Follow cervical fluid culture. Nephrology consulted for CHUCK on CKD. Initially concern for possible urolithiasis, however no hydronephrosis, no evidence of obstructive or nonobstructive stone on CT No obvious NEUROSURGICAL NURSE PRACTITIONER pathology seen on CT or ultrasound Pelvic exam did not elicit cervical motion tenderness, but did note some discharge likely yeast Patient also with small area of intertrigo Nephrology input appreciated. Patient noted to have progressive CKD 4. Renal replacement therapy suggested by patient follows with a wood repatcher and she is looking at renal transplantation. Patient started on oral bicarb replacement for metabolic acidosis Pain management as needed. Continue Protonix for possible gastritis Consider referral to NEUROSURGICAL NURSE PRACTITIONER as an outpatient.
--- NOTE | 2021-09-10 17:17 | P.DS ---
Admission Date: 09/07/21 Discharge Date: 09/10/21 Disposition: ROUTINE DISCHARGE Discharge Condition: FAIR Reason for Admission: Severe pelvic/vaginal pain, CHUCK Brief History of Present Illness: 45-year-old female, PMH: Insulin-dependent diabetes mellitus type 2, CKD4, HTN, PCOS, bilateral BKA after trauma Presents to the ED due to sudden onset severe pelvic/vaginal pain. Patient went to urinate at 1:30 AM, and afterwards felt severe stabbing pain. She felt as though the pain was vaginal. She reports pain was severe enough and causing some nausea. She had the sensation as though she was . Nothing seemed to worsen or alleviate this pain. It lasted for several hours until some minimal improvement so she presented to the ED. Currently still in pain but slightly improved. She denies any prior episodes of this. She is sexually active, one partner. Denies any vaginal discharge, denies any UTI symptoms. She does have a history of kidney stones, but did not feel anything like this before. In the ED, she was noted to have leukocytosis, CHUCK, and in pain. She denied any abdominal pain. CT abdomen/pelvis without contrast did not reveal any acute findings. Pelvic/transvaginal ultrasound only noted a possible anterior small fibroid, no other acute findings. Patient reported significant tenderness with the vaginal probe. ED physician MD performed pelvic exam, noting some discharge, likely yeast. Patient denied any significant change in her urinary habits. No significant change in her p.o. intake either. She was in her usual state of health yesterday evening before this occurred. She reported she has chronic retention issues. When she goes to urinate, she sits there up to 30-45 minutes at times until she can urinate. She feels like she fully empties her bladder when she does. She states this is due to her job. She does not want to leave her post, so she holds her urine in until she cannot anymore. Hospital Course: Problem list CHUCK on CKD 4 Severe pelvic/vaginal pain Vaginal yeast infection Intertrigo Hypertension Insulin-dependent DM 2 PCOS Nonanionic gap metabolic acidosis Plan: Suspected PID but and gonorrhea and Chlamydia antigens are negative. Leukocytosis resolved. Patient treated with antibiotics. Cervical fluid culture is pending Nephrology consulted for CHUCK on CKD. Initially concern for possible urolithiasis, however no hydronephrosis, no evidence of obstructive or nonobstructive stone on CT No obvious [facility] pathology seen on CT or ultrasound Pelvic exam did not elicit cervical motion tenderness, but did note some discharge likely yeast Patient also with small area of intertrigo Patient noted to have progressive CKD 4. Renal replacement therapy suggested by patient follows with a jitney driver outside this hospital and she is looking at renal transplantation. Patient started on oral bicarb replacement for metabolic acidosis Pain management as needed. Patient also experienced intractable nausea and vomiting. Gastroparesis versus gastritis suspected She was treated with Protonix for possible gastritis. Patient clinically improved and deemed stable for discharge. Referral to [facility] as an outpatient made on discharge. Vital Signs/Physical Exam: Temp Pulse Resp BP Pulse Ox 97.7 F 81 16 123/86 100 09/10/21 16:47 09/10/21 16:47 09/10/21 16:47 09/10/21 16:47 09/10/21 16:47 General: Alert, In no apparent distress, Oriented x3 HEENT: Mucous membr. moist/pink Neck: JVD not distended Respiratory: Clear to auscultation bilaterally, Normal air movement Cardiovascular: Regular rate/rhythm, Normal S1 S2 Gastrointestinal: Soft and benign, Non-distended Musculoskeletal: No swelling Integumentary: No rashes Neurological: Normal strength at 5/5 x4 extr Laboratory Data at Discharge: WBC 10.90 K/uL (4.3-10.9) D 09/10/21 05:03 Hgb 9.8 g/dL (12.0-15.0) L 09/10/21 05:03 Hct 29.7 % (36.0-45.0) L D 09/10/21 05:03 Plt Count 256 K/uL (152-406) D 09/10/21 05:03 Sodium 139 mmol/L (136-145) 09/10/21 05:03 Potassium 4.8 mmol/L (3.5-5.1) 09/10/21 05:03 BUN 39 mg/dL (7-18) H 09/10/21 05:03 Creatinine 4.10 mg/dL (0.55-1.3) H 09/10/21 05:03 Glucose 190 mg/dL (74-106) H 09/10/21 05:03 Phosphorus 4.3 mg/dL (2.5-4.9) 09/10/21 05:03 Magnesium 1.8 mg/dL (1.8-2.4) 09/08/21 03:29 Total Bilirubin 0.2 mg/dL (0.2-1.0) 09/08/21 03:29 AST 10 U/L (15-37) L 09/08/21 03:29 ALT 10 U/L (12-78) L 09/08/21 03:29 Alkaline Phosphatase 73 U/L (45-117) 09/08/21 03:29 Lipase 86 U/L (73-393) 09/07/21 05:15 Home Medications: Biotin/Keratin [Biotin Plus Keratin Tablet] 1 tab PO DAILY 05/23/20 Cyanocobalamin (Vitamin B-12) [Vitamin B12] 1 tab PO DAILY 05/23/20 Insulin Degludec [Tresiba] 60 units SQ DAILY 05/23/20 Dulaglutide [Trulicity] 1.5 mg SQ EVERY 7TH DAY 08/26/20 Furosemide 20 mg PO BID 08/26/20 Nebivolol HCl [Bystolic] 2 tab PO DAILY 09/26/20 Iron 18 mg PO DAILY 09/08/21 Amlodipine [Norvasc*] 10 mg PO DAILY #30 tab 09/10/21 Calcitrol [Rocaltrol*] 0.25 mcg PO Q48H #15 cap 09/10/21 Hydrocodone 5/APAP 325 [[place] 5/325*] 1 tab PO Q6H PRN #15 tab 09/10/21 Metoclopramide [Reglan] 5 mg PO TID PRN #30 tab 09/10/21 Pantoprazole [Protonix Tab] 40 mg PO DAILY #30 tab 09/10/21 Sodium Bicarbonate 1,300 mg PO TID #180 tablet 09/10/21 New Medications: Hydrocodone 5/APAP 325 [[place] 5/325*] 1 tab PO Q6H PRN #15 tab PRN Reason: Pain Scale 5-7 (Moderate) Amlodipine [Norvasc*] 10 mg PO DAILY #30 tab Pantoprazole [Protonix Tab] 40 mg PO DAILY #30 tab Metoclopramide [Reglan] 5 mg PO TID PRN #30 tab PRN Reason: Nausea / Vomiting Calcitrol [Rocaltrol*] 0.25 mcg PO Q48H #15 cap Sodium Bicarbonate 1,300 mg PO TID #180 tablet Diet: ADA Activity: Ad francie Followup: NONE,NONE [Primary Care Provider] - Seda Boo MD [ACTIVE - CAN ADMIT] - 1-2 Weeks (Please evaluate for pelvic pain.) Time spent managing pt's care (in minutes): 34
[2021-09-14 03:56] LABS: Vitamin D 1,25-Dihydroxy Total <8 pg/mL (18-72); Vitamin D,1,25-OH2, D2 <8 pg/mL
== END 2021-09-10 18:30 | disposition home or self-care (01) | DRG 683 ==
LOC: ER 04:30 → ERHOLD 13:10 → 4TH 09-08 09:04
PROVIDERS: ADMIT Hospitalist; ATTEND Internal Medicine
DX: N17.9 Acute kidney failure, unspecified (principal); E87.2 Acidosis; N18.4 Chronic kidney disease, stage 4 (severe); I12.9 Hypertensive chronic kidney disease with stage 1 through stage 4 chronic kidney disease, or unspecified chronic kidney disease; E11.22 Type 2 diabetes mellitus with diabetic chronic kidney disease; E11.65 Type 2 diabetes mellitus with hyperglycemia; E11.43 Type 2 diabetes mellitus with diabetic autonomic (poly)neuropathy; K31.84 Gastroparesis; K52.9 Noninfective gastroenteritis and colitis, unspecified; L30.4 Erythema intertrigo; E28.2 Polycystic ovarian syndrome; E87.5 Hyperkalemia; D63.1 Anemia in chronic kidney disease; E21.1 Secondary hyperparathyroidism, not elsewhere classified; N76.0 Acute vaginitis; E78.5 Hyperlipidemia, unspecified; D72.829 Elevated white blood cell count, unspecified; R10.2 Pelvic and perineal pain; Z88.5 Allergy status to narcotic agent; Z88.4 Allergy status to anesthetic agent; Z79.82 Long term (current) use of aspirin; Z79.4 Long term (current) use of insulin; Z79.84 Long term (current) use of oral hypoglycemic drugs; Z79.899 Other long term (current) drug therapy; Z89.432 Acquired absence of left foot; Z89.431 Acquired absence of right foot; Z90.49 Acquired absence of other specified parts of digestive tract; Z20.822 Contact with and (suspected) exposure to COVID-19
CPT/HCPCS: 36415; 74176; 76770; 76830; 80048; 80053; 80069; 80076; 81003; 81015; 81025; 82652; 82947; 83690; 83735; 83970; 84145; 84439; 84443; 85025; 85652; 86140; 87324; 87449; 87490; 87590; 94760; 99284; C9113; J0360; J2175; J2405; J2543; J2550; J3010; J7030; J7040; U0003

== ENCOUNTER 2022-02-26 18:04 | Emergency (ER) | payer OTHER ==
--- OUTSIDE RECORDS SUMMARY | 2022-02-26 18:07 | XMS REPORT | Clinical Summary ---
:1975 Author Organization [facility] Address [address] [place] [address] Care Team Providers Name Role Phone Deepthi [...] Added automatically from request for chris ruby [id number] Family history of malignant neoplasm of pancreas 07/05 Overview: Added automatically from request for chris ruby [id number] Diarrhea 07/05/2019 Overview: Added automatically from request for chris ruby [id number] Family history of cancer of colon 07/05/2019 Overview: Added automatically from request for chris ruby [id number] Surgical History Surgery Date Site/Laterality Comments APPENDECTOMY 04/09/2019 - 05/09/2019 COLONOSCOPY 10/10/2014 - 10/09/2015 CHOLECYSTECTOMY 10/10/2003 - 10/09/2004 ME EDG US EXAM SURGICAL 07/09/2019 N/A Procedur [...] Brother 1 RANJAN LAZA Brother 2 JOE MATHEWS LAZA Brother 3 ADEBAYO LAZA Father JOE BRYANT [...] Vaccination (1) 1982 Results Not on fileafter 02/26/2021 Insurance Payer Benefit Plan / Subscriber ID Effective Dates Phone Addre ss Type Group [employer] [place] PPO POS [id number] 2018-Present [address] [place] [address] [phone] (Work) Keiry Umaña Personal/Family Self 1975 [id number] (Home) [place], [place] [phone] (Work) Keiry Umaña Personal/Family Self 1975 [id number] ([address]) [place] [phone] (Work) Care Teams Quality Assurance Analyst Relationship Specialty Start Date End Date Brooke Steward MD PCP - General Gastroenterology, 06/29/19 [facility] [place] [address]
--- OUTSIDE RECORDS SUMMARY | 2022-02-26 18:10 | XMS REPORT | Continuity of Care Document ---
:1975 Author Organization [facility] t Address [address] [place] [address] [address] [place] [address] Care Team Providers Name Role Phone Pcp, Does Not Have A Primary Care Physician Bennie Attending Clinician Unavailable YENY Attending Clinician Unavailable YENY Attending Clinician Unavailable Nena PEARSON Attending Clinician Yeny PEARSON Attending Clinician Doctor Unassigned, Name Attending Clinician Unavailable Pob, Lab Main Attending Clinician Unavailable NENA Attending Clinician Unavailable Vaishali PEARSON Attending Clinician Frederick LEUNG Attending Clinician Unavailable Anton PEARSON, A Attending Clinician Frederick LEUNG Admitting Clinician Unavailable Payers Payer Name Policy Type Policy Number Effective Date Expiration Date S ource Problems Condition Condition Condition Status Onset Resolution Last Treating Co mments Source Name Details Category Date Date Treatment Clinician Date Worsening Worsening Disease Active Uni vers renal renal 3-22 ity of function function 00:00: [place] [address] Medical Branch Multifocal Multifocal Disease Active 2021-0 U nivers pneumonia pneumonia 3-16 ity of 00:00: [place] 00 Medical Branch CKD stage CKD stage Disease Active 2020-10 Uni vers G5/A3, GFR G5/A3, GFR 2-28 it y of <15 and <15 and 00:00: [place] albumin albumin 00 [facility] creatinine creatinine Br anch ratio >300 ratio >300 mg/g mg/g Iron Iron Disease Active 2020-10 Univers deficiency deficiency 2-28 it y of anemia, anemia, 00:00: [place] unspecifie unspecifie 00 Me dical d iron d iron Branch deficiency deficiency anemia anemia type type CHUCK (acute CHUCK (acute Disease Active 2020-10 U keena kidney kidney 2-23 ity of injury) injury) 00:00: [place] [address] Medical Branch Nausea and Nausea and Disease Active 2020-10 U keena vomiting vomiting 2-22 ity of 00:00: [place] [address] Medical Branch Cardiomyop Cardiomyop Disease Active 2020-10 U keena athy athy 2-22 ity of 00:00: [place] [address] Medical Branch Abnormal Abnormal Disease Active 2020-10 Unive rs nuclear nuclear 2-22 ity of cardiac cardiac 00:00: [place] imaging imaging 00 Medical test test Branch CKD stage CKD stage Disease Active Uni vers G4/A3, GFR G4/A3, GFR 1-19 it y of 15-29 and 15-29 and 00:[place] albumin albumin 00 [facility] creatinine creatinine Br anch ratio >300 ratio >300 mg/g mg/g Secondary Secondary Disease Active Uni vers hyperparat hyperparat 1-19 it [place] of hyroidism hy[place] Metabolic Metabolic Disease Active Uni vers acidosis acidosis 1-19 ity of 00:00: [place] [address] Medical Branch Nephrotic Nephrotic Disease Active Uni vers range range 8-04 ity of proteinuri proteinuri 00:[place] Hyperkalem Hyperkalem Disease Active U keena ia ia 8-04 ity of 00:00: [place] [address] Medical Branch Left upper Left upper Disease Active Overview : quadrant quadrant 07-05 Formattin And erso pain pain 00:00: g of this n 00 note might be different from the original. Added automatic ally from request for surgery [id number] Family Family Disease Active Overview: history of history of 07-05 Denae Ernandez malignant malignant 00:00: g of this n neoplasm neoplasm 00 note of of might be pancreas pancreas different from the original. Added automatic ally from request for surgery [id number] Diarrhea Diarrhea Disease Active Overview: 07-05 Denae Ernandez 00:00: g of this n 00 note might be different from the original. Added automatic ally from request for surgery [id number] Family Family Disease Active Overview: history of history of 07-05 Denae Ernandez cancer of cancer of 00:00: g of this n colon colon 00 note might be different from the original. Added automatic ally from request for surgery [id number] 26 weeks 26 weeks Disease Active Unive rs gestation gestation 6-06 ity of of of 00:00: [place] 00 Medi deangleo Branch Pelvic Pelvic Disease Active Univers pain pain 6-06 it[place] of affecting [place] 00:[place] in second in second Bran ch trimester, trimester, antepartum antepartum Disease Active Uni vers headache headache 6-06 ity of in second in second 00:00[place] trimester trimester 00 Medi deangelo Branch Hypertensi Hypertensi Disease Active U nivers on on 6 it[place] of affecting affecting [place] de[place] in second in second Bran ch trimester trimester Type 2 Type 2 Disease Active Univers diabetes diabetes 3-13 ity of mellitus mellitus 00:00: [place] with stage with stage 00 Me dical 5 chronic 5 chronic Bran ch kidney kidney disease disease not on not on chronic chronic dialysis, dialysis, with with long-term long-term current current use of use of insulin insulin CKD stage CKD stage Disease Active 2016-10 Uni vers G3b/A3, G3b/A3, 2-19 ity of GFR 30-44 GFR 30-44 00:[place] 00 Medical albumin albumin Branch creatinine creatinine ratio >300 ratio >300 mg/g mg/g Status Status Disease Active 2016-10 Univers post post 2-19 it[place] of bilateral bilateral 00:[place] below knee below knee 00 Me [...] Active U nivers 3-20 ity of 00:00: Medical Branch Morbid Morbid Disease Active Univers obesity obesity 3-20 ity of with body with body 00:[place] mass index mass index 00 Me dical of of Branch 40.0-49.9 40.0-49.9 Vitamin D Vitamin D Disease Active Uni vers deficiency deficiency 3-16 it y of 00:00: [place] 00 Medical Branch Diabetes Diabetes Disease Active Unive rs mellitus mellitus 3-14 ity of type 2 type 2 00:00: [place] with with 00 Medical complicati complicati Br anch ons, ons, uncontroll uncontroll ed ed HLD HLD Disease Active Overview: Univer s (hyperlipi (hyperlipi 3-14 Formattin ity of demia) demia) 00:00: g of this note Medical might be Branch different from the original. ICD10 Diagnosis Term [employer] Obesity Obesity Disease Active Overview: Univ ers 3-14 Formattin ity of 00:00: g of this 00 note Medical might be Branch different from the original. ICD10 Diagnosis Term [employer] PCOS PCOS Disease Active Univers (polycysti (polycysti 3-14 it y of c ovarian c ovarian 00:[place] syndrome) syndrome) 00 Medi deangelo Branch S/P BKA S/P BKA Disease Active Univers (below (below 3-14 ity of knee knee 00:00: [place] amputation amputation 00 Me dical ) ) Branch Neuropathy Neuropathy Disease Active U nivers 3-14 ity of 00:00: [place] 00 Medical Branch Diabetic Diabetic Disease Active Unive rs foot ulcer foot ulcer 3-14 it y of 00:: [place] [facility] [place] Primary Primary Disease Active Univers hypertensi hypertensi 3-14 it y of on on 00:: [place] [facility] [place] Morbid Morbid Problem Active Common (severe) (severe) Spirit obesity obesity - [facility] due to due to excess excess [facility] calories calories [facility] Body mass Body mass Problem Active Com mon index index Spirit (BMI) of (BMI) of - [facility] 40.0-44.9 40.0-44.9 St in adult in adult [facility] Chronic Chronic Problem Active Common kidney kidney Spirit disease, disease, - [facility] unspecifie unspecifie St d CKD d CKD [facility] stage stage [facility] Hyperlipid Hyperlipid Diagnosis Active Common emia, emia, Spirit unspecifie unspecifie - CHI d d hyperlipid hyperlipid [facility] emia type emia type [facility] Type II Type II Problem Active Common diabetes diabetes Spirit mellitus mellitus - [facility] with with St nephropath nephropath [facility] y y Medical Center Hypertensi Hypertensi Problem Active C ommon on, on, Spirit unspecifie unspecifie - [facility] d type d type [facility] Neck pain Neck pain Problem Active Com mon on right on right [facility] side side [facility] Acute pain Acute pain Problem Active C ommon of right of right [facility] shoulder shoulder [facility] Right arm Right arm Problem Active Com mon pain pain [facility] Abnormal Abnormal Problem Active Commo n urinalysis urinalysis Sp mariah [facility] Migraine Migraine Problem Active Commo n [facility] Depression Depression Problem Active C ommon , , Spirit unspecifie unspecifie - [facility] d d depression depression [facility] type [facility] Vitamin D Vitamin D Diagnosis Active C ommon deficiency deficiency Sp mariah [facility] Acquired Acquired Problem Active Commo n absence of absence of Sp mariah right leg right leg - CH I below knee below knee [facility] Acquired Acquired Diagnosis Active Com mon absence of absence of Sp mariah left leg left leg - [facility] below knee below knee [facility] Type 2 Type 2 Problem Active Common diabetes diabetes [facility] Mixed Mixed Problem Active Common hyperlipid hyperlipid Sp mariah emia emia - [facility] Hx of BKA Hx of BKA Problem Active Com mon Spirit [facility] Abdominal Abdominal Problem Active Com mon pain, pain, Spirit unspecifie unspecifie - [facility] d d abdominal abdominal [place] location [facility] Fatigue, Fatigue, Problem Active Commo n unspecifie unspecifie Sp mariah d type d type - [facility] Body mass Body mass Diagnosis Active C ommon index index Spirit (BMI) (BMI) - [facility] 45.0-49.9, 45.0-49.9, adult [facility] Depression Depression Problem [facility] with with Spirit anxiety anxiety [facility] Acute UTI Acute UTI Diagnosis Active C ommon Spirit [facility] Dietary Dietary Diagnosis Active Commo n surveillan surveillan Sp amriah ce and ce and - [facility] counseling counseling [facility] Allergies, Adverse Reactions, Alerts Allergy Allergy Status Severity Reaction(s) Onset Inactive Treating Comm ents Source Name Type Date Date Clinician morphine DA Active [facility] [place] 00:00: d 00 [facility] ketamine DA Active [facility] [place] 00:00: d 00 [facility] Amlodipi Propensi Active Swelling Univ ers ne ty to 6-24 ity of adverse 00:00: [place] reaction 00 [facility] AMLODIPI DRUG Active Swelling [facility] NE INGREDI 6-24 ity of 00:00: [place] 00 [facility] Ketamine Propensi Active Hallucinatio Univers ty to ns 5-03 ity of adverse 00:00: [place] reaction 00 [facility] KETAMINE DRUG Active Hallucinates Un alicia INGREDI 5-03 ity of 00:00: [place] 00 [facility] morphine DA Active [facility] 6-07 [place] 00:00: d 00 [facility] Morphine Propensi Active Hallucinatio 0 Univers ty to ns 3-20 ity of adverse 00:00: [place] reaction [facility] MORPHINE DRUG Active Hallucinates Un alicia INGREDI 3-20 ity of 00:00: [place] 00 [facility] Ciproflo Propensi Active Rash That Univer s xacin ty to 04 within ity of adverse 00:00: taking a [place] reaction 00 large Medical s dosage. Branch CIPROFLO DRUG Active High ITCHING Univers XACIN INGREDI 02-10 ity of 00:00: [place] 00 Medical Branch MORPHINE Adverse Active Info Not Commo n Reaction Available Spiri t - CH[facility] Family History Family Member Diagnosis Comments Start Date Stop Date Source Natural brother -Colon cancer Natural brother -Melanoma Michael on Natural brother -Thoracic or Lung MD [place] Natural brother -Unknown cancer MD Qian garcia Natural father -Pancreatic cancer MD [place] Paternal grandmother -Breast cancer MD [place] Social History Social Habit Start Date Stop Date Quantity Comments Source Exposure to 2021-12-09 2022-01-08 Not sure [facility] SARS-CoV-2 00:00:00 11:16:00 [facility] (event) Branch Education 2021-09-30 2021-09-30 21 [facility] 00:00:00 00:00:00 [facility] Alcohol intake 2019-07-10 2019-07-10 Lifetime MD Awais gerard 00:00:00 00:00:00 non-drinker (finding) Tobacco use and 2019-07-05 2019-07-05 Smokeless tobacco MD Vyas exposure 00:00:00 00:00:00 non-user Sex [birth year] At [birth year] Universit y of 00:00:00 00:00:00 [facility] Smoking Status Start Date Stop Date Source Never smoker [facility] Medications Ordered Filled Start Stop Current Ordering Indication Dosage Frequency Signature Comments Components Source Medication Medication Date Date Medication? Clinician (SIG) Name Name nebivoloL Yes [id number] 10mg Take 1 Uni vers 10 mg 5-17 tablet by ity of tablet 00:00: mouth [place] 00 daily. Medical Branch nebivoloL Yes [id number] 20mg Take 1 Uni vers 20 mg 5-17 tablet by ity of tablet 00:00: mouth [place] 00 daily. Medical Branch nebivoloL 2021- No [id number] 10mg Take 1 Un alicia 10 mg 5-17 05-17 tablet by ity of tablet 00:00: 00:00 mouth [place] 00 :00 daily. Medical Branch diltiazem 2021- Yes [id number] 180mg Take 1 Univers XR 180 mg 3-24 04-24 capsule by ity of 24 hr 00:00: 04:59 mouth [place] capsule 00 :00 daily for Medical 30 days. Branch levothyroxi 2021- Yes [id number] 50ug Take 1 Univers ne 50 mcg 3-24 04-24 tablet by ity of tablet 00:00: 04:59 mouth [place] 00 :00 every Medical morning Branch for 30 days. sodium 2021- Yes [id number] 30mL Take 30 mL Univers citrate-cit 3-24 04-24 by mouth ity of cayla acid 00:00: 04:59 daily for [place] as 500-334 00 :00 30 days. Medical mg/5 mL Branch solution diltiazem 2021- Yes [id number] 180mg Take 1 Univers XR 180 mg 3-24 04-24 capsule by ity of 24 hr 00:00: 04:59 mouth [place] capsule 00 :00 daily for Medical 30 days. Branch levothyroxi 2021- Yes [id number] 50ug Take 1 Univers ne 50 mcg 3-24 04-24 tablet by ity of tablet 00:00: 04:59 mouth [place] 00 :00 every Medical morning Branch for 30 days. sodium 2021- Yes [id number] 30mL Take 30 mL Univers citrate-cit 3-24 04-24 by mouth ity of cayla acid 00:00: 04:59 daily for [place] as 500-334 00 :00 30 days. Medical mg/5 mL Branch solution diltiazem 2021- Yes [id number] 180mg Take 1 Univers XR 180 mg 3-24 04-24 capsule by ity of 24 hr 00:00: 04:59 mouth [place] capsule 00 :00 daily for Medical 30 days. Branch levothyroxi 2021- Yes [id number] 50ug Take 1 Univers ne 50 mcg 3-24 04-24 tablet by ity of tablet 00:00: 04:59 mouth [place] 00 :00 every Medical morning Branch for 30 days. sodium 2021- Yes [id number] 30mL Take 30 mL Univers citrate-cit 3-24 04-24 by mouth ity of cayla acid 00:00: 04:59 daily for [place] 500-334 00 :00 30 days. Medical mg/5 mL Branch solution diltiazem 2021- Yes [id number] 180mg Take 1 Univers XR 180 mg 3-24 04-24 capsule by ity of 24 hr 00:00: 04:59 mouth [place] capsule 00 :00 daily for Medical 30 days. Branch levothyroxi 2021- Yes [id number] 50ug Take 1 Univers ne 50 mcg 3-24 04-24 tablet by ity of tablet 00:00: 04:59 mouth [place] 00 :00 every Medical morning Branch for 30 days. sodium 2021- Yes [id number] 30mL Take 30 mL Univers citrate-cit 3-24 04-24 by mouth ity of cayla acid 00:00: 04:59 daily for [place] 500-334 00 :00 30 days. Medical mg/5 mL Branch solution diltiazem 2021- No [id number] 180mg Take 1 Univers XR 180 mg 3-24 04-24 capsule by ity of 24 hr 00:00: 04:59 mouth [place] capsule 00 :00 daily for Medical 30 days. Branch levothyroxi 2021- No [id number] 50ug Take 1 Univers ne 50 mcg 3-24 04-24 tablet by ity of tablet 00:00: 04:59 mouth [place] 00 :00 every Medical morning Branch for 30 days. sodium 2021- No [id number] 30mL Take 30 mL Univers citrate-cit 3-24 04-24 by mouth ity of cayla acid 00:00: 04:59 daily for [place] 500-334 00 :00 30 days. Medical mg/5 mL Branch solution insulin Yes 35U inject 35 Unive rs aspart 3-23 Units ity of RAPID 16:27: under the [place] (NOVOLOG) 16 skin 3 Medical 100 unit/mL (three) Branc h injection times daily before meals. insulin Yes 60U inject 60 Unive rs degludec 3-23 Units ity of (TRESIBA 16:27: [place] FLEXTOUCH 16 skin Medical U-100 SC) daily. Branch BIOTIN-ARTIS Yes Take by Un alicia TIN ORAL 3-23 mouth. ity of 16:27: [place] 16 [facility] Branch insulin 2022-0 Yes 35U inject 35 Unive rs aspart 3-23 Units ity of RAPID 16:27: under the [place] (NOVOLOG) 16 skin 3 Medical 100 unit/mL (three) Branc h injection times daily before meals. insulin 2021-0 Yes 60U inject 60 Unive rs degludec 3-23 Units ity of (TRESIBA 16:27: [place] FLEXTOUCH 16 skin Medical U-100 SC) daily. Branch BIOTIN-ARTIS 2021-0 Yes Take by Un alicia TIN ORAL 3-23 mouth. ity of 16:27: [address] insulin 2021-0 Yes 35U inject 35 Unive rs aspart 3-23 Units ity of RAPID 16:27: under the [place] (NOVOLOG) 16 skin 3 Medical 100 unit/mL (three) Branc h injection times daily before meals. insulin 2021-0 Yes 60U inject 60 Unive rs degludec 3-23 Units ity of (TRESIBA 16:27: [place] the [place] FLEXTOUCH 16 skin Medical U-100 SC) daily. Branch BIOTIN-ARTIS 0 Yes Take by Un alicia TIN ORAL 3-23 mouth. ity of 16:27: [address] insulin 2021-0 Yes 35U inject 35 Unive rs aspart 3-23 Units ity of RAPID 16:27: under the [place] (NOVOLOG) 16 skin 3 Medical 100 unit/mL (three) Branc h injection times daily before meals. insulin 2021-0 Yes 60U inject 60 Unive rs degludec 3-23 Units ity of (TRESIBA 16:27: [place] the [place] FLEXTOUCH 16 skin Medical U-100 SC) daily. Branch BIOTIN-ARTIS 0 Yes Take by Un alicia TIN ORAL 3-23 mouth. ity of 16:27: [address] insulin 2021-0 Yes 35U inject 35 Unive rs aspart 3-23 Units ity of RAPID 16:27: under the [place] (NOVOLOG) 16 skin 3 Medical 100 unit/mL (three) Branc h injection times daily before meals. insulin 2021-0 Yes 60U inject 60 Unive rs degludec 3-23 Units ity of (TRESIBA 16:27: [place] FLEXTOUCH 16 skin Medical U-100 SC) daily. Branch BIOTIN-ARTIS 2021-0 Yes Take by Un alicia TIN ORAL 3-23 mouth. ity of 16:27: [address] Branch insulin 2021-0 Yes 35U inject 35 Unive rs aspart 3-23 Units ity of RAPID 16:27: under the [place] (NOVOLOG) 16 skin 3 Medical 100 unit/mL (three) Branc h injection times daily before meals. insulin 2021-0 Yes 60U inject 60 Unive rs degludec 3-23 Units ity of (TRESIBA 16:27: [place] the [place] FLEXTOUCH 16 skin Medical U-100 SC) daily. Branch BIOTIN-ARTIS 0 Yes Take by Un alicia TIN ORAL 3-23 mouth. ity of 16:27: [address] insulin 2021-0 Yes 35U inject 35 Unive rs aspart 3-23 Units ity of RAPID 16:27: under the [place] (NOVOLOG) 16 skin 3 Medical 100 unit/mL (three) Branc h injection times daily before meals. insulin 2021-0 Yes 60U inject 60 Unive rs degludec 3-23 Units ity of (TRESIBA 16:27: [place] the [place] FLEXTOUCH 16 skin Medical U-100 SC) daily. Branch BIOTIN-ARTIS 0 Yes Take by Un alicia TIN ORAL 3-23 mouth. ity of 16:27: [address] insulin 2021-0 Yes 35U inject 35 Unive rs aspart 3-23 Units ity of RAPID 16:27: under the [place] (NOVOLOG) 16 skin 3 Medical 100 unit/mL (three) Branc h injection times daily before meals. insulin 2021-0 Yes 60U inject 60 Unive rs degludec 3-23 Units ity of (TRESIBA 16:27: [place] the [place] FLEXTOUCH 16 skin Medical U-100 SC) daily. Branch BIOTIN-ARTIS 2021-0 Yes Take by Un alicia TIN ORAL 3-23 mouth. ity of 16:27: [address] insulin 2021-0 Yes 35U inject 35 Unive rs aspart 3-23 Units ity of RAPID 16:27: under the [place] (NOVOLOG) 16 skin 3 Medical 100 unit/mL (three) Branc h injection times daily before meals. insulin 2021-0 Yes 60U inject 60 Unive rs degludec 3-23 Units ity of (TRESIBA 16:27: [place] the [place] FLEXTOUCH 16 skin Medical U-100 SC) daily. Branch BIOTIN-ARTIS 0 Yes Take by Un alicia TIN ORAL 3-23 mouth. ity of 16:27: [address] insulin 2021-0 Yes 35U inject 35 Unive rs aspart 3-23 Units ity of RAPID 16:27: under the [place] (NOVOLOG) 16 skin 3 Medical 100 unit/mL (three) Branc h injection times daily before meals. insulin 2021-0 Yes 60U inject 60 Unive rs degludec 3-23 Units ity of (TRESIBA 16:27: [place] the [place] FLEXTOUCH 16 skin Medical U-100 SC) daily. Branch BIOTIN-ARTIS 0 Yes Take by Un alicia TIN ORAL 3-23 mouth. ity of 16:27: [address] insulin 2021-0 Yes 35U inject 35 Unive rs aspart 3-23 Units ity of RAPID 16:27: under the [place] (NOVOLOG) 16 skin 3 Medical 100 unit/mL (three) Branc h injection times daily before meals. insulin 0 Yes 60U inject 60 Unive rs degludec 3-23 Units ity of (TRESIBA 16:27: [place] the [place] FLEXTOUCH 16 skin Medical U-100 SC) daily. Branch BIOTIN-ARTIS 0 Yes Take by Un alicia TIN ORAL 3-23 mouth. ity of 16:27: [address] insulin 2021-0 Yes 35U inject 35 Unive rs aspart 3-23 Units ity of RAPID 16:27: under the [place] (NOVOLOG) 16 skin 3 Medical 100 unit/mL (three) Branc h injection times daily before meals. insulin 2021-0 Yes 60U inject 60 Unive rs degludec 3-23 Units ity of (TRESIBA 16:27: [place] the [place] FLEXTOUCH 16 skin Medical U-100 SC) daily. Branch BIOTIN-ARTIS 0 Yes Take by Un alicia TIN ORAL 3-23 mouth. ity of 16:27: [address] insulin 2021-0 Yes 35U inject 35 Unive rs aspart 3-23 Units ity of RAPID 16:27: under the [place] (NOVOLOG) 16 skin 3 Medical 100 unit/mL (three) Branc h injection times daily before meals. insulin 2021-0 Yes 60U inject 60 Unive rs degludec 3-23 Units ity of (TRESIBA 16:27: [place] the [place] FLEXTOUCH 16 skin Medical U-100 SC) daily. Branch BIOTIN-ARTIS 2021-0 Yes Take by Un alicia TIN ORAL 3-23 mouth. ity of 16:27: [address] Branch insulin 2021-0 Yes 35U inject 35 Unive rs aspart 3-23 Units ity of RAPID 16:27: under the [place] (NOVOLOG) 16 skin 3 Medical 100 unit/mL (three) Branc h injection times daily before meals. insulin 2021-0 Yes 60U inject 60 Unive rs degludec 3-23 Units ity of (TRESIBA 16:27: [place] the [place] FLEXTOUCH 16 skin Medical U-100 SC) daily. Branch BIOTIN-ARTIS 2021-0 Yes Take by Un alicia TIN ORAL 3-23 mouth. ity of 16:27: [address] insulin 2021-0 Yes 35U inject 35 Unive rs aspart 3-23 Units ity of RAPID 16:27: under the [place] (NOVOLOG) 16 skin 3 Medical 100 unit/mL (three) Branc h injection times daily before meals. insulin 2021-0 Yes 60U inject 60 Unive rs degludec 3-23 Units ity of (TRESIBA 16:27: [place] the [place] FLEXTOUCH 16 skin Medical U-100 SC) daily. Branch BIOTIN-ARTIS 2021-0 Yes Take by Un alicia TIN ORAL 3-23 mouth. ity of 16:27: [address] Branch insulin 2-0 Yes 35U inject 35 Unive rs aspart 3-23 Units ity of RAPID 16:27: under the [place] (NOVOLOG) 16 skin 3 Medical 100 unit/mL (three) Branc h injection times daily before meals. insulin 2021-0 Yes 60U inject 60 Unive rs degludec 3-23 Units ity of (TRESIBA 16:27: [place] the [place] FLEXTOUCH 16 skin Medical U-100 SC) daily. Branch BIOTIN-ARTIS Yes Take by Un alicia TIN ORAL 3-23 mouth. ity of 16:27: [address] insulin 2021-0 Yes 35U inject 35 Unive rs aspart 3-23 Units ity of RAPID 16:27: under the [place] (NOVOLOG) 16 skin 3 Medical 100 unit/mL (three) Branc h injection times daily before meals. insulin 2021-0 Yes 60U inject 60 Unive rs degludec 3-23 Units ity of (TRESIBA 16:27: under the [facility] s FLEXTOUCH 16 skin Medical U-100 SC) daily. Branch BIOTIN-ARTIS Yes Take by Un alicia TIN ORAL 3-23 mouth. ity of 16:27: [address] hydrALAZINE 2021-0 Yes [id number] 50mg Take 1 U nivers 50 mg 3-23 tablet by ity of tablet 00:00: mouth 2 [place] [address] (two) Medical times Branch daily. calcium 2021-0 Yes [id number] 1000mg Take 2 Un alicia carbonate 3-23 tablets by ity of 500 mg 00:00: mouth 3 [place] calcium 00 (three) Medical (1,250 mg) times Branch tablet daily with meals. hydrALAZINE 2021-0 Yes [id number] 50mg Take 1 U nivers 50 mg 3-23 tablet by ity of tablet 00:00: mouth 2 [place] (two) Medical times Branch daily. calcium 2021-0 Yes [id number] 1000mg Take 2 Un alicia carbonate 3-23 tablets by ity of 500 mg 00:00: mouth 3 [place] calcium 00 (three) Medical (1,250 mg) times Branch tablet daily with meals. hydrALAZINE 2021-0 Yes [id number] 50mg Take 1 U nivers 50 mg 3-23 tablet by ity of tablet 00:00: mouth 2 [place] (two) Medical times Branch daily. calcium 2021-0 Yes [id number] 1000mg Take 2 Un alicia carbonate 3-23 tablets by ity of 500 mg 00:00: mouth 3 [place] calcium 00 (three) Medical (1,250 mg) times Branch tablet daily with meals. hydrALAZINE 2021-0 Yes [id number] 50mg Take 1 U nivers 50 mg 3-23 tablet by ity of tablet 00:00: mouth 2 (two) Medical times Branch daily. calcium 2-0 Yes [id number] 1000mg Take 2 Un alicia carbonate 3-23 tablets by ity of 500 mg 00:00: mouth 3 [place] calcium 00 (three) Medical (1,250 mg) times Branch tablet daily with meals. hydrALAZINE 2021-0 Yes [id number] 50mg Take 1 U nivers 50 mg 3-23 tablet by ity of tablet 00:00: mouth (two) Medical times Branch daily. calcium 2021-0 Yes [id number] 1000mg Take 2 Un alicia carbonate 3-23 tablets by ity of 500 mg 00:00: mouth 3 [place] calcium 00 (three) Medical (1,250 mg) times Branch tablet daily with meals. hydrALAZINE 2021-0 Yes [id number] 50mg Take 1 U nivers 50 mg 3-23 tablet by ity of tablet 00:00: mouth (two) Medical times Branch daily. calcium 2021-0 Yes [id number] 1000mg Take 2 Un al[facility] carbonate 3-23 tablets by ity of 500 mg 00:00: mouth 3 [place] 00 (three) Medical (1,250 mg) times Branch tablet daily with meals. hydrALAZINE 2021-0 Yes [id number] 50mg Take 1 U nivers 50 mg 3-23 tablet by ity of tablet 00:00: mouth (two) Medical times Branch daily. calcium 2021-0 Yes [id number] 1000mg Take 2 Un alicia carbonate 3-23 tablets by ity of 500 mg 00:00: mouth 3 [place] 00 (three) Medical (1,250 mg) times Branch tablet daily with meals. hydrALAZINE 2-0 Yes [id number] 50mg Take 1 U nivers 50 mg 3-23 tablet by ity of tablet 00:00: mouth 2 (two) Medical times Branch daily. calcium 2-0 Yes [id number] 1000mg Take 2 Un alicia carbonate 3-23 tablets by ity of 500 mg 00:00: mouth 3 [place] calcium 00 (three) Medical (1,250 mg) times Branch tablet daily with meals. hydrALAZINE 2-0 Yes [id number] 50mg Take 1 U nivers 50 mg 3-23 tablet by ity of tablet 00:00: mouth (two) Medical times Branch daily. calcium 2-0 Yes [id number] 1000mg Take 2 Un alicia carbonate 3-23 tablets by ity of 500 mg 00:00: mouth 3 [place] calcium 00 (three) Medical (1,250 mg) times Branch tablet daily with meals. hydrALAZINE 2-0 Yes [id number] 50mg Take 1 U nivers 50 mg 3-23 tablet by ity of tablet 00:00: mouth 2 (two) Medical times Branch daily. calcium 2021-0 Yes [id number] 1000mg Take 2 [facility] alicia carbonate 3-23 tablets by ity of 500 mg 00:00: mouth 3 [place] calcium 00 (three) Medical (1,250 mg) times Branch tablet daily with meals. hydrALAZINE 2-0 Yes [id number] 50mg Take 1 U nivers 50 mg 3-23 tablet by ity of tablet 00:00: mouth 2 (two) Medical times Branch daily. calcium 2021-0 Yes [id number] 1000mg Take 2 Un alicia carbonate 3-23 tablets by ity of 500 mg 00:00: mouth 3 [place] calcium 00 (three) Medical (1,250 mg) times Branch tablet daily with meals. hydrALAZINE 2021-0 Yes [id number] 50mg Take 1 U nivers 50 mg 3-23 tablet by ity of tablet 00:00: mouth (two) Medical times Branch daily. calcium 2021-0 Yes [id number] 1000mg Take 2 [facility] al[facility] carbonate 3-23 tablets by ity of 500 mg 00:00: mouth 3 [place] calcium 00 (three) Medical (1,250 mg) times Branch tablet daily with meals. hydrALAZINE 2-0 Yes [id number] 50mg Take 1 U nivers 50 mg 3-23 tablet by ity of tablet 00:00: mouth 2 (two) Medical times Branch daily. calcium 2-0 Yes [id number] 1000mg Take 2 Un al[facility] carbonate 3-23 tablets by ity of 500 mg 00:00: mouth 3 [place] calcium 00 (three) Medical (1,250 mg) times Branch tablet daily with meals. hydrALAZINE 2-0 Yes [id number] 50mg Take 1 U nivers 50 mg 3-23 tablet by ity of tablet 00:00: mouth 2 (two) Medical times Branch daily. calcium 2022-0 Yes [id number] 1000mg Take 2 [facility] al[facility] carbonate 3-23 tablets by ity of 500 mg 00:00: mouth 3 [place] calcium 00 (three) Medical (1,250 mg) times Branch tablet daily with meals. hydrALAZINE 2021-0 Yes [id number] 50mg Take 1 U nivers 50 mg 3-23 tablet by ity of tablet 00:00: mouth 2 [place] 00 (two) Medical times Branch daily. calcium 2021-0 Yes [id number] 1000mg Take 2 Un alicia carbonate 3-23 tablets by ity of 500 mg 00:00: mouth 3 [place] calcium 00 (three) Medical (1,250 mg) times Branch tablet daily with meals. hydrALAZINE 2021-0 Yes [id number] 50mg Take 1 U nivers 50 mg 3-23 tablet by ity of tablet 00:00: mouth 2 [place] 00 (two) Medical times Branch daily. calcium 2021-0 Yes [id number] 1000mg Take 2 Un al[facility] carbonate 3-23 tablets by ity of 500 mg 00:00: mouth 3 [place] calcium 00 (three) Medical (1,250 mg) times Branch tablet daily with meals. hydrALAZINE 0 Yes [id number] 50mg Take 1 U nivers 50 mg 3-23 tablet by ity of tablet 00:00: mouth 2 00 (two) Medical times Branch daily. calcium 2021-0 Yes [id number] 1000mg Take 2 Un alicia carbonate 3-23 tablets by ity of 500 mg 00:00: mouth 3 [place] calcium 00 (three) Medical (1,250 mg) times Branch tablet daily with meals. furosemide 2021- Yes [id number] 80mg Take 1 [facility] 80 mg 3-23 04-23 tablet by ity of tablet 00:00: 04:59 mouth [place] 00 :00 every Medical morning Branch and evening for 30 days. sevelamer 2021-0 2021- Yes [id number] 1600mg Take 2 [facility] 800 mg 3-23 04-23 tablets by ity of tablet 00:00: 04:59 mouth 3 [place] 00 :00 (three) Medical times Branch daily with meals for 30 days. furosemide 2021-2021- Yes [id number] 80mg Take 1 [facility] 80 mg 3-23 04-23 tablet by ity of tablet 00:00: 04:59 mouth [place] 00 :00 every Medical morning Branch and evening for 30 days. sevelamer 2021- Yes [id number] 1600mg Take 2 [facility] 800 mg 3-23 04-23 tablets by ity of tablet 00:00: 04:59 mouth 3 [place] 00 :00 (three) Medical times Branch daily with meals for 30 days. furosemide 2021- Yes [id number] 80mg Take 1 [facility] 80 mg 3-23 04-23 tablet by ity of tablet 00:00: 04:59 mouth [place] 00 :00 every Medical morning Branch and evening for 30 days. sevelamer 2021- Yes [id number] 1600mg Take 2 [facility] 800 mg 3-23 04-23 tablets by ity of tablet 00:00: 04:59 mouth 3 [place] 00 :00 (three) Medical times Branch daily with meals for 30 days. furosemide 2021- Yes [id number] 80mg Take 1 [facility] 80 mg 3-23 04-23 tablet by ity of tablet 00:00: 04:59 mouth [place] 00 :00 every Medical morning Branch and evening for 30 days. sevelamer 2021- Yes [id number] 1600mg Take 2 [facility] 800 mg 3-23 04-23 tablets by ity of tablet 00:00: 04:59 mouth 3 [place] 00 :00 (three) Medical times Branch daily with meals for 30 days. furosemide 2021- No [id number] 80mg Take 1 [facility] 80 mg 3-23 04-23 tablet by ity of tablet 00:00: 04:59 mouth [place] 00 :00 every Medical morning Branch and evening for 30 days. sevelamer 2021- No [id number] 1600mg Take 2 [facility] 800 mg 3-23 04-23 tablets by ity of tablet 00:00: 04:59 mouth 3 [place] 00 :00 (three) Medical times Branch daily with meals for 30 days. aspirin 81 2021-0 Yes [id number] 81mg Take 1 [facility] al[facility] mg chewable 1-12 tablet by ity of tablet 00:00: mouth [place] 00 daily. Medical Branch aspirin 81 2021-0 Yes [id number] 81mg Take 1 [facility] mg chewable 1-12 tablet by ity of tablet 00:00: mouth [place] 00 daily. Medical Branch aspirin 81 2021-0 Yes [id number] 81mg Take 1 [facility] mg chewable 1-12 tablet by ity of tablet 00:00: mouth [place] 00 daily. Medical Branch aspirin 81 2021-0 Yes [id number] 81mg Take 1 [facility] mg chewable 1-12 tablet by ity of tablet 00:00: mouth [place] 00 daily. Medical Branch aspirin 81 2021-0 Yes [id number] 81mg Take 1 [facility] mg chewable 1-12 tablet by ity of tablet 00:00: mouth [place] 00 daily. Medical Branch aspirin 81 2021-0 Yes [id number] 81mg Take 1 [facility] mg chewable 1-12 tablet by ity of tablet 00:00: mouth [place] 00 daily. Medical Branch aspirin 81 2021-0 Yes [id number] 81mg Take 1 [facility] mg chewable 1-12 tablet by ity of tablet 00:00: mouth [place] 00 daily. Medical Branch aspirin 81 2021-0 Yes [id number] 81mg Take 1 [facility] mg chewable 1-12 tablet by ity of tablet 00:00: mouth [place] 00 daily. Medical Branch aspirin 81 2021-0 Yes [id number] 81mg Take 1 [facility] mg chewable 1-12 tablet by ity of tablet 00:00: mouth [place] 00 daily. Medical Branch aspirin 81 2021-0 Yes [id number] 81mg Take 1 [facility] mg chewable 1-12 tablet by ity of tablet 00:00: mouth [place] 00 daily. Medical Branch aspirin 81 2021-0 Yes [id number] 81mg Take 1 [facility] mg chewable 1-12 tablet by ity of tablet 00:00: mouth [place] 00 daily. Medical Branch aspirin 81 2021-0 Yes [id number] 81mg Take 1 [facility] mg chewable 1-12 tablet by ity of tablet 00:00: mouth [place] 00 daily. Medical Branch aspirin 81 2021-0 Yes [id number] 81mg Take 1 [facility] mg chewable 1-12 tablet by ity of tablet 00:00: mouth [place] 00 daily. Medical Branch aspirin 81 2021-0 Yes [id number] 81mg Take 1 [facility] mg chewable 1-12 tablet by ity of tablet 00:00: mouth [place] 00 daily. Medical Branch aspirin 81 2021-0 Yes [id number] 81mg Take 1 [facility] mg chewable 1-12 tablet by ity of tablet 00:00: mouth [place] 00 daily. Medical Branch aspirin 81 0 Yes [id number] 81mg Take 1 [facility] mg chewable 1-12 tablet by ity of tablet 00:00: mouth [place] 00 daily. Medical Branch aspirin 81 0 Yes [id number] 81mg Take 1 [facility] al[facility] mg chewable 1-12 tablet by ity of tablet 00:00: mouth [place] 00 daily. Medical Branch ferrous 2020-10 Yes [id number] 325mg Take 1 Uni vers sulfate 325 2-28 tablet by ity of mg (65 mg 00:00: mouth 2 [place] iron) 00 (two) Medical tablet times Branch daily. cholecalcif 2020-10 Yes [id number] 4000U Take 4,000 [facility] [place], 2-28 Units by ity of vitamin D3, 00:00: mouth [place] (VITAMIN 00 daily. Medical D3) 100 mcg Branch (4,000 unit) Cap ferrous 2020-10 Yes [id number] 325mg Take 1 [facility] vers sulfate 325 2-28 tablet by ity of mg (65 mg 00:00: mouth 2 [place] iron) 00 (two) Medical tablet times Branch daily. cholecalcif 2020-10 Yes [id number] 4000U Take 4,000 [facility] [place], 2-28 Units by ity of vitamin D3, 00:00: mouth [place] (VITAMIN 00 daily. Medical D3) 100 mcg Branch (4,000 unit) Cap ferrous 2020-10 Yes [id number] 325mg Take 1 [facility] vers sulfate 325 2-28 tablet by ity of mg (65 mg 00:00: mouth 2 [place] iron) 00 (two) Medical tablet times Branch daily. cholecalcif 2020-10 Yes [id number] 4000U Take 4,000 [facility] [place], 2-28 Units by ity of vitamin D3, 00:00: mouth [place] (VITAMIN 00 daily. Medical D3) 100 mcg Branch (4,000 unit) Cap ferrous 2020-10 Yes [id number] 325mg Take 1 [facility] vers sulfate 325 2-28 tablet by ity of mg (65 mg 00:00: mouth 2 [place] iron) 00 (two) Medical tablet times Branch daily. cholecalcif 2020-10 Yes [id number] 4000U Take 4,000 [facility] [place], 2-28 Units by ity of vitamin D3, 00:00: mouth [place] (VITAMIN 00 daily. Medical D3) 100 mcg Branch (4,000 unit) Cap ferrous 2020-10 Yes [id number] 325mg Take 1 [facility] vers sulfate 325 2-28 tablet by ity of mg (65 mg 00:00: mouth 2 [place] iron) 00 (two) Medical tablet times Branch daily. cholecalcif 2020-10 Yes [id number] 4000U Take 4,000 [facility] [place], 2-28 Units by ity of vitamin D3, 00:00: mouth [place] (VITAMIN 00 daily. Medical D3) 100 mcg Branch (4,000 unit) Cap ferrous 2020-10 Yes [id number] 325mg Take 1 [facility] vers sulfate 325 2-28 tablet by ity of mg (65 mg 00:00: mouth 2 [place] iron) 00 (two) Medical tablet times Branch daily. cholecalcif 2020-10 Yes [id number] 4000U Take 4,000 [facility] [place], 2-28 Units by ity of vitamin D3, 00:00: mouth [place] (VITAMIN 00 daily. Medical D3) 100 mcg Branch (4,000 unit) Cap ferrous 2020-10 Yes [id number] 325mg Take 1 [facility] vers sulfate 325 2-28 tablet by ity of mg (65 mg 00:00: mouth 2 [place] iron) 00 (two) Medical tablet times Branch daily. cholecalcif 2020-10 Yes [id number] 4000U Take 4,000 [facility] [place], 2-28 Units by ity of vitamin D3, 00:00: mouth [place] (VITAMIN 00 daily. Medical D3) 100 mcg Branch (4,000 unit) Cap ferrous 2020-10 Yes [id number] 325mg Take 1 [facility] vers sulfate 325 2-28 tablet by ity of mg (65 mg 00:00: mouth 2 [place] iron) 00 (two) Medical tablet times Branch daily. cholecalcif 2020-10 Yes [id number] 4000U Take 4,000 [facility] [place], 2-28 Units by ity of vitamin D3, 00:00: mouth [place] (VITAMIN 00 daily. Medical D3) 100 mcg Branch (4,000 unit) Cap ferrous 2020-10 Yes [id number] 325mg Take 1 [facility] vers sulfate 325 2-28 tablet by ity of mg (65 mg 00:00: mouth 2 [place] iron) 00 (two) Medical tablet times Branch daily. cholecalcif 2020-10 Yes [id number] 4000U Take 4,000 [facility] [place], 2-28 Units by ity of vitamin D3, 00:00: mouth [place] (VITAMIN 00 daily. Medical D3) 100 mcg Branch (4,000 unit) Cap ferrous 2020-10 Yes [id number] 325mg Take 1 Uni vers sulfate 325 2-28 tablet by ity of mg (65 mg 00:00: mouth 2 [place] iron) 00 (two) Medical tablet times Branch daily. cholecalcif 2020-10 Yes [id number] 4000U Take 4,000 [facility] [place], 2-28 Units by ity of vitamin D3, 00:00: mouth [place] (VITAMIN 00 daily. Medical D3) 100 mcg Branch (4,000 unit) Cap ferrous 2020-10 Yes [id number] 325mg Take 1 Uni vers sulfate 325 2-28 tablet by ity of mg (65 mg 00:00: mouth 2 [place] iron) 00 (two) Medical tablet times Branch daily. cholecalcif 2020-10 Yes [id number] 4000U Take 4,000 [facility] [place], 2-28 Units by ity of vitamin D3, 00:00: mouth [place] (VITAMIN 00 daily. Medical D3) 100 mcg Branch (4,000 unit) Cap ferrous 2020-10 Yes [id number] 325mg Take 1 [facility] vers sulfate 325 2-28 tablet by ity of mg (65 mg 00:00: mouth 2 [place] iron) 00 (two) Medical tablet times Branch daily. cholecalcif 2020-10 Yes [id number] 4000U Take 4,000 [facility] [place], 2-28 Units by ity of vitamin D3, 00:00: mouth [place] (VITAMIN 00 daily. Medical D3) 100 mcg Branch (4,000 unit) Cap ferrous 2020-10 Yes [id number] 325mg Take 1 [facility] vers sulfate 325 2-28 tablet by ity of mg (65 mg 00:00: mouth 2 [place] iron) 00 (two) Medical tablet times Branch daily. cholecalcif 2020-10 Yes [id number] 4000U Take 4,000 [facility] [place], 2-28 Units by ity of vitamin D3, 00:00: mouth [place] (VITAMIN 00 daily. Medical D3) 100 mcg Branch (4,000 unit) Cap ferrous 2020-10 Yes [id number] 325mg Take 1 Uni vers sulfate 325 2-28 tablet by ity of mg (65 mg 00:00: mouth 2 [place] iron) 00 (two) Medical tablet times Branch daily. cholecalcif 2020-10 Yes [id number] 4000U Take 4,000 [facility] [place], 2-28 Units by ity of vitamin D3, 00:00: mouth [place] (VITAMIN 00 daily. Medical D3) 100 mcg Branch (4,000 unit) Cap ferrous 2020-10 Yes [id number] 325mg Take 1 Uni vers sulfate 325 2-28 tablet by ity of mg (65 mg 00:00: mouth 2 [place] iron) 00 (two) Medical tablet times Branch daily. cholecalcif 2020-10 Yes [id number] 4000U Take 4,000 [facility] [place], 2-28 Units by ity of vitamin D3, 00:00: mouth [place] (VITAMIN 00 daily. Medical D3) 100 mcg Branch (4,000 unit) Cap ferrous 2020-10 Yes [id number] 325mg Take 1 Uni vers sulfate 325 2-28 tablet by ity of mg (65 mg 00:00: mouth 2 [place] iron) 00 (two) Medical tablet times Branch daily. cholecalcif 2020-10 Yes [id number] 4000U Take 4,000 [facility] [place], 2-28 Units by ity of vitamin D3, 00:00: mouth [place] (VITAMIN 00 daily. Medical D3) 100 mcg Branch (4,000 unit) Cap ferrous 2020-10 Yes [id number] 325mg Take 1 Uni vers sulfate 325 2-28 tablet by ity of mg (65 mg 00:00: mouth 2 [place] iron) 00 (two) Medical tablet times Branch daily. cholecalcif 2020-10 Yes [id number] 4000U Take 4,000 [facility] [place], 2-28 Units by ity of vitamin D3, 00:00: mouth [place] (VITAMIN 00 daily. Medical D3) 100 mcg Branch (4,000 unit) Cap Contrave Contrave 2019-0 2020- No Jammie one daily Common Starter Starter 03-07-28 [facility] times 7 [facility] pack pack 00:00: 00:00 days, then - [facility] 00 :00 bid, then [facility] then 2 bid [facility] Ciprofloxac Ciprofloxac 2019- 2020- No Jammie 1 tablet Common in HCl in HCl 03-07 06-05 [facility] t 00:00: 00:00 - [facility]00 [facility] Diflucan Diflucan 0 2020- No Jammie as Com mon 03-07 05-31 [facility] directed Spiri t 00:00: 00:00 - [facility] 00 :00 [facility] Duloxetine Duloxetine 2018-10 Yes Jammie 1 capsule Common HCl HCl 1-20 [facility] 00:00: - [facility] 00 [facility] BD BD 2018-10- No Jammie as Common Ultra-Fine Ultra-Fine 1-20 02-12 [facility] directed [facility] Maria T Pen Maria T Pen 00:00: 00:00 - [facility] I [place] 00 :00 [facility] hydrALAZINE Yes 1{tbl} Take 1 MD (APRESOLINE 6-24 tablet by And erso ) 50 mg 00:00: mouth n tablet 00 daily. lisinopril Yes 20mg Take 20 mg M D (PRINIVIL,Z 6-24 by mouth [place]i rso ESTRIL) 10 00:00: daily. n mg [...] pen day. Lancets Lancets Yes Jammie as Common 8-24 [facility] 00:00: (dispense - [facility] [address] for karley VSoft contour bs Medical monitor) Center Blood Blood Yes Jammie as Common Glucose Glucose 8-24 [facility] directed [facility] Test Strip Test Strip 00:00: (DISPENSE - [facility] [address] [facility]SE [facility] TEST Medical STRIPS FOR Center KARLEY CONTOUR BS MONITOR ) insulin 0 Yes 35U Inject 35 MD aspart 7-02 Units Anderso U-100 00:00: under the n (NovoLOG 00 skin twice Flexpen daily. U-100 Insulin) 100 unit/mL (3 mL) insulin pen Insulin Yes 4 (four) Univer s [place], 8-09 times ity of Disposable, 00:[place] (BD 00 Medical ULTRAFINE Branch III MINI PEN) 31 x 3/16 " Ndle Insulin Yes 4 (four) Univer s [place], 8-09 times ity of Disposable, 00:00: daily. [place] (BD 00 Medical ULTRAFINE Branch III MINI PEN) 31 x 3/16 " Ndle Insulin Yes 4 (four) Univer s [place], 8-09 times ity of Disposable, 00:00: daily. [place] (BD 00 Medical ULTRAFINE Branch III MINI PEN) 31 x 3/16 " Ndle Insulin Yes 4 (four) Univer s [place], 8-09 times ity of Disposable, 00:00: daily. [place] (BD 00 Medical ULTRAFINE Branch III MINI PEN) 31 x 3/16 " Ndle Insulin Yes 4 (four) Univer s [place], 8-09 times ity of Disposable, 00:00: daily. [place] (BD 00 Medical ULTRAFINE Branch III MINI PEN) 31 x 3/16 " Ndle Insulin Yes 4 (four) Univer s [place], 8-09 times ity of Disposable, 00:00: daily. [place] (BD 00 Medical ULTRAFINE Branch III MINI PEN) 31 x 3/16 " Ndle Insulin Yes 4 (four) Univer s [place], 8-09 times ity of Disposable, 00:00: daily. [place] (BD 00 Medical ULTRAFINE Branch III MINI PEN) 31 x 3/16 " Ndle Insulin Yes 4 (four) Univer s [place], 8-09 times ity of Disposable, 00:00: daily. [place] (BD 00 Medical ULTRAFINE Branch III MINI PEN) 31 x 3/16 " Ndle Insulin Yes 4 (four) Univer s [place], 8-09 times ity of Disposable, 00:00: daily. [place] (BD 00 Medical ULTRAFINE Branch III MINI PEN) 31 x 3/16 " Ndle Insulin Yes 4 (four) Univer s [place], 8-09 times ity of Disposable, 00:00: daily. [place] (BD 00 Medical ULTRAFINE Branch III MINI PEN) 31 x 3/16 " Ndle Insulin Yes 4 (four) Univer s [place], 8-09 times ity of Disposable, 00:00: daily. [place] (BD 00 Medical ULTRAFINE Branch III MINI PEN) 31 x 3/16 " Ndle Insulin Yes 4 (four) Univer s [place], 8-09 times ity of Disposable, 00:00: daily. [place] (BD 00 Medical ULTRAFINE Branch III MINI PEN) 31 x 3/16 " Ndle Insulin Yes 4 (four) Univer s [place], 8-09 times ity of Disposable, 00:00: daily. [place] (BD 00 Medical ULTRAFINE Branch III MINI PEN) 31 x 3/16 " Ndle Insulin Yes 4 (four) Univer s [place], 8-09 times ity of Disposable, 00:00: daily. [place] (BD 00 Medical ULTRAFINE Branch III MINI PEN) 31 x 3/16 " Ndle Insulin Yes 4 (four) Univer s [place], 8-09 times ity of Disposable, 00:00: daily. [place] (BD 00 Medical ULTRAFINE Branch III MINI PEN) 31 x 3/16 " Ndle Insulin Yes 4 (four) Univer s [place], 8-09 times ity of Disposable, 00:00: daily. [place] (BD 00 Medical ULTRAFINE Branch III MINI PEN) 31 x 3/16 " Ndle Insulin Yes 4 (four) Univer s [place], 8-09 times ity of Disposable, 00:00: daily. [place] (BD 00 Medical ULTRAFINE Branch III MINI PEN) 31 x 3/16 " Ndle Insulin 2011-10 Yes [id number] Univer s Safety 1-14 ity of [place], 00:00: [place] Disp, 00 Medical (NOVOFINE Branch AUTOCOVER) 30 x 1/3 " Ndle Insulin 2011-10 Yes [id number] Univer s Safety 1-14 ity of [place], 00:00: [place] Disp, 00 Medical (NOVOFINE Branch AUTOCOVER) 30 x 1/3 " Ndle Insulin 2011-10 Yes [id number] Univer s Safety 1-14 ity of [place], 00:00: [place] Disp, 00 Medical (NOVOFINE Branch AUTOCOVER) 30 x 1/3 " Ndle Insulin 2011-10 Yes [id number] Univer s Safety 1-14 ity of [place], 00:00: [place] Disp, 00 Medical (NOVOFINE Branch AUTOCOVER) 30 x 1/3 " Ndle Insulin 2011-10 Yes [id number] Univer s Safety 1-14 ity of [place], 00:00: [place] Disp, 00 Medical (NOVOFINE Branch AUTOCOVER) 30 x 1/3 " Ndle Insulin 2011-10 Yes [id number] Univer s Safety 1-14 ity of [place], 00:00: [place] Disp, 00 Medical (NOVOFINE Branch AUTOCOVER) 30 x 1/3 " Ndle Insulin 2011-10 Yes [id number] Univer s Safety 1-14 ity of [place], 00:00: [place] Disp, 00 Medical (NOVOFINE Branch AUTOCOVER) 30 x 1/3 " Ndle Insulin 2011-10 Yes [id number] Univer s Safety 1-14 ity of [place], 00:00: [place] Disp, 00 Medical (NOVOFINE Branch AUTOCOVER) 30 x 1/3 " Ndle Insulin 2011-10 Yes [id number] Univer s Safety 1-14 ity of [place], 00:00: [place] Disp, 00 Medical (NOVOFINE Branch AUTOCOVER) 30 x 1/3 " Ndle Insulin 2011-10 Yes [id number] Univer s Safety 1-14 ity of [place], 00:00: [place] Disp, 00 Medical (NOVOFINE Branch AUTOCOVER) 30 x 1/3 " Ndle Insulin 2011-10 Yes [id number] Univer s Safety 1-14 ity of [place], 00:00: [place] Disp, 00 Medical (NOVOFINE Branch AUTOCOVER) 30 x 1/3 " Ndle Insulin 2011-10 Yes [id number] Univer s Safety 1-14 ity of [place], 00:00: [place] Disp, 00 Medical (NOVOFINE Branch AUTOCOVER) 30 x 1/3 " Ndle Insulin 2011-10 Yes [id number] Univer s Safety 1-14 ity of [place], 00:00: [place] Disp, 00 Medical (NOVOFINE Branch AUTOCOVER) 30 x 1/3 " Ndle Insulin 2011-10 Yes [id number] Univer s Safety 1-14 ity of [place], 00:00: [place] Disp, 00 Medical (NOVOFINE Branch AUTOCOVER) 30 x 1/3 " Ndle Insulin 2011-10 Yes [id number] Univer s Safety 1-14 ity of [place], 00:00: [place] Disp, 00 Medical (NOVOFINE Branch AUTOCOVER) 30 x 1/3 " Ndle Insulin 2011-10 Yes [id number] Univer s Safety 1-14 ity of [place], 00:00: [place] Disp, 00 Medical (NOVOFINE Branch AUTOCOVER) 30 x 1/3 " Ndle Insulin 2011-10 Yes [id number] Univer s Safety 1-14 ity of [place], 00:00: [place] Disp, 00 Medical (NOVOFINE Branch AUTOCOVER) 30 x 1/3 " Ndle blood sugar Yes [id number] Monitor BG [facility] diagnostic 4-23 6 times a ity of (FREESTYLE 00:00: day [place] LITE 00 Medical STRIPS) Branch strip blood sugar Yes [id number] Monitor BG [facility] diagnostic 4-23 6 times a ity of (FREESTYLE 00:00: day [place] LITE 00 Medical STRIPS) Branch strip blood sugar Yes [id number] Monitor BG [facility] diagnostic 4-23 6 times a ity of (FREESTYLE 00:00: day [place] LITE 00 Medical STRIPS) Branch strip blood sugar Yes [id number] Monitor BG [facility] diagnostic 4-23 6 times a ity of (FREESTYLE 00:00: day [place] LITE 00 Medical STRIPS) Branch strip blood sugar Yes [id number] Monitor BG [facility] diagnostic 4-23 6 times a ity of (FREESTYLE 00:00: day [place] LITE 00 Medical STRIPS) Branch strip blood sugar Yes [id number] Monitor BG [facility] diagnostic 4-23 6 times a ity of (FREESTYLE 00:00: day [place] LITE 00 Medical STRIPS) Branch strip blood sugar Yes [id number] Monitor BG [facility] diagnostic 4-23 6 times a ity of (FREESTYLE 00:00: day [place] LITE 00 Medical STRIPS) Branch strip blood sugar Yes [id number] Monitor BG [facility] diagnostic 4-23 6 times a ity of (FREESTYLE 00:00: day [place] LITE 00 Medical STRIPS) Branch strip blood sugar Yes [id number] Monitor BG [facility] diagnostic 4-23 6 times a ity of (FREESTYLE 00:00: day [place] LITE 00 Medical STRIPS) Branch strip blood sugar Yes [id number] Monitor BG [facility] diagnostic 4-23 6 times a ity of (FREESTYLE 00:00: day [place] LITE 00 Medical STRIPS) Branch strip blood sugar Yes [id number] Monitor BG [facility] diagnostic 4-23 6 times a ity of (FREESTYLE 00:00: day [place] LITE 00 Medical STRIPS) Branch strip blood sugar Yes [id number] Monitor BG [facility] diagnostic 4-23 6 times a ity of (FREESTYLE 00:00: day [place] LITE 00 Medical STRIPS) Branch strip blood sugar Yes [id number] Monitor BG [facility] diagnostic 4-23 6 times a ity of (FREESTYLE 00:00: day [place] LITE 00 Medical STRIPS) Branch strip blood sugar Yes [id number] Monitor BG [facility] diagnostic 4-23 6 times a ity of (FREESTYLE 00:00: day [place] LITE 00 Medical STRIPS) Branch strip blood sugar Yes [id number] Monitor BG [facility] diagnostic 4-23 6 times a ity of (FREESTYLE 00:00: day [place] LITE 00 Medical STRIPS) Branch strip blood sugar Yes [id number] Monitor BG [facility] diagnostic 4-23 6 times a ity of (FREESTYLE 00:00: day [place] LITE 00 Medical STRIPS) Branch strip blood sugar Yes [id number] Monitor BG [facility] diagnostic 4-23 6 times a ity of (FREESTYLE 00:00: day [place] LITE 00 Medical STRIPS) Branch strip Iron Iron Yes Jammie 1 tablet Common [facility] Ferrous Ferrous Yes Jammie 1 tablet Comm on Sulfate Sulfate [facility] Spir [facility] Aspirin EC Aspirin EC Yes Jammie 1 tablet Common Millender (otc) [facility] Amitiza Amitiza Yes Jammie 1 capsule Com mon Millender with food Spiri [facility] Dicyclomine Dicyclomine Yes Jammie 1 tablet Common HCl HCl Millender [facility] [place] 3 [place] 3 Yes Jammie 1 capsule Com mon Millender [facility] Fish Oil Fish Oil Yes Jammie 1 capsule C ommon Millender [facility] NovoFine NovoFine Yes Jammie as Common Millender directed [facility] Tresiba Tresiba Yes Jammie 60 units Comm on FlexTouch FlexTouch Millender [facility] Fluconazole Fluconazole Yes Jammie 1 tablet Common Millender [facility] Metformin Metformin Yes Jammie 1 tablet Common HCl HCl Millender with meals Spir it [facility] Calcium + Calcium + Yes Jammie 1 tablet Common D3 D3 Millender with a [facility] Atorvastati Atorvastati Yes Jammei 1 tablet Common n Calcium n Calcium Millender [facility] HydrALAZINE HydrALAZINE Yes Jammie 1 tablet Common HCl HCl Millender with food [facility] Fenofibrate Fenofibrate Yes Jammie 1 tablet Common Millender with food [facility] Vitamin D3 Vitamin D3 Yes Jammie one tab Common Millender [facility] Metoprolol Metoprolol Yes Jammie 1 tablet Common Succinate Succinate Millender Spirit ER ER [facility] NovoLog NovoLog Yes Jammie as Common Flexpen Flexpen Millender directed [facility] Victoza Victoza Yes Jammie not Common Millender defined [facility] BuPROPion BuPROPion Yes Jammie 1 tablet Common HCl ER HCl ER Millender in the Spir it (Smoking (Smoking morning - CH I Det) Det) [facility] Ciprofloxac Ciprofloxac Yes Jammie 1 tablet Common in HCl in HCl Millender [facility] Bystolic Bystolic Yes Jammie 1 tablet Co mmon Millender [facility] Lisinopril Lisinopril Yes Jammie 1 tablet Common Millender [facility] Yes Jammie 1 tablet Co mmon Vitamins Vitamins Millender in evening [facility] Biotin Plus Biotin Plus Yes Jammie not Common Keratin Keratin Millender defined S pirit [facility] Ketoconazol Ketoconazol Yes Jammie 1 Common e e Millender applicatio Spir it n to - [facility] affected [facility] Pravastatin Pravastatin Yes Jammie 1 tablet Common Sodium Sodium Millender [facility] Levemir Levemir Yes Jammie as Common FlexTouch FlexTouch Millender directed [facility] Promethazin Promethazin Yes Jammie 1 tablet Common e HCl e HCl Millender as needed Spi rit [facility] Amlodipine Amlodipine Yes Jammie 1 tablet Common Besylate Besylate Millender Sp mariah [facility] Trulicity Trulicity Yes Jammie as Comm on Millender directed [facility] Procedures Procedure Date / Time Performing Clinician Source Performed AUTHORIZATION FOR 2022-02-12 05:01:00 Doctor Unassigned, No [facility] Name [facility] AUTHORIZATION FOR 2022-01-26 05:01:00 Doctor Unassigned, No [facility] Name [facility] Plan of Care Planned Activity Planned Date Details Comments Source Future Scheduled Test 1982 00:00:00 COVID-19 Vaccination MD Vyas (1) [code = COVID-19 Vaccination (1)] Encounters Start End Encounter Admission Attending Care Care Encounter Source Date/Time Date/Time Type Type Clinicians Facility Department ID 2021-11-04 Outpatient BANDAR Avery [facility] [id number] Common 11:01:29 Jammie [id number] [facility] 2022-05-12 2022-05-12 Outpatient R MALATHI SAINI [facility] U TMB [id number] Univers 09:00:00 09:00:00 MALATIH SAINI [id number] ity [facility] 2022-02-23 2022-02-23 Telephone MINDY Rodriguez 1.2.840.114 [id number] Univers 00:00:00 00:00:00 [facility] 350.1.13.10 i ty of [facility] [id number] [address] [address] 2022-02-19 2022-02-19 [facility] 1.2.840.114 [id number] Univers 00:00:00 00:00:00 [facility] 350.1.13.10 [place] L[place] [id number] [facility] MEDICAL [address] OFFICE BUILDING 2022-02-19 2022-02-19 Patient Nena, UNIVERSIT [id number] Univers 00:00:00 00:00:00 [facility] 350.1.13.10 [place] [id number] [facility] [address] 2022-02-19 2022-02-19 Refill Nena, UNIVERSIT [id number] Univers 00:00:00 00:00:00 Oleg HEALTH 350.1.13.10 i ty [place] [id number] [facility] [address] 2022-02-18 2022-02-18 Patient Nena, UNIVERSIT [id number] Univers 00:00:00 00:00:00 Secure [facility] Oleg Y HEALTH 350.1.13.10 ity [place] [id number] [facility] [address] 2022-02-16 2022-02-16 Refill Nena, UNIVERSIT 1.2.806.118 [id number] Univers 00:00:00 00:00:00 [facility] HEALTH 350.1.13.10 i ty [place] [id number] [facility] [address] 2022-02-12 2022-02-12 Orders Doctor RANJAN 1.2.840.114 [id number] Univers 00:00:00 00:00:00 Only Unassigned, ERNIE 350.1.13.10 ity of [facility] 4.2.7.2.686 Shola as [id number] [facility] [address] 2022-02-03 2022-02-03 Telephone [facility] 1.2.840.114 [id number] Univers 00:00:00 00:00:00 [facility] 350.1.13.10 [place] [id number] [facility] [address] OFFICE BUILDING 2022-02-03 2022-02-03 Patient Nena, UNIVERSIT [id number] Univers 00:00:00 00:00:00 Secure Msg Oleg Y HEALTH 350.1.13.10 ity [place] [id number] [address] 2022-02-02 2022-02-02 Junior Underwriter Subhash, Adc Lab Main [facility] 1.2.8 40.114 [id number] Univers 13:15:00 13:30:00 Visit Oleg Rodriguez 350.1.13.10 ity of [place] [id number] Nj dical NAL [address] [facility] 2022-02-02 2022-02-02 Outpatient R NENA, [facility] [id number] Univers 13:15:00 13:15:00 OLEG [id number] ity [facility] 2022-02-02 2022-02-02 Outpatient R NENA, [facility] [id number] Univers 13:15:00 13:15:00 OLEG ity [facility] 2022-02-02 2022-02-02 Telephone MINDY Rodriguez 1.2.840.114 [id number] Univers 00:00:00 00:00:00 [facility] HEALTH 350.1.13.10 i ty [place] [id number] [address] 2022-01-26 2022-01-26 Refill Nena, UNIVERSIT 1.2.849.010 [id number] Univers 00:00:00 00:00:00 Oleg Y HEALTH 350.1.13.10 i ty [place] [id number] [address] 2022-01-26 2022-01-26 Orders Doctor RANJAN 1.2.840.114 [id number] Univers 00:00:00 00:00:00 Only Unassigned, ERNIE 350.1.13.10 ity of [facility] 4.2.7.2.686 Shola as [id number] [facility] [address] 2022-01-22 2022-01-22 Telephone [place] MINDY 1.2.840.114 [id number] Univers 00:00:00 00:00:00 Prateek Y HEALTH 350.1.13.10 i ty [place] [id number] [facility] [address] 2022-01-18 2022-01-18 Junior Underwriter Subhash, Adc Lab Main [facility] 1.2.8 40.114 [id number] Univers 16:30:00 16:45:00 Visit Oleg Rodriguez 350.1.13.10 ity of [place] [id number] Nj dical [facility] 353 [facility] 2022-01-18 2022-01-18 Outpatient R [facility] [id number] Univers 16:30:00 16:30:00 [id number] ity [facility] 2022-01-18 2022-01-18 [facility] [id number] Univers 16:30:00 16:30:00 OLEG ity [facility] 2022-01-13 2022-01-13 Patient Nena, UNIVERSIT 1.2.426.690 [id number] Univers 00:00:00 00:00:00 Secure Msg Oleg Y HEALTH 350.1.13.10 ity [place] [id number] [facility] [address] 2022-01-12 2022-01-12 Telephone NenaSALLY 1.2.840.114 [id number] Univers 00:00:00 00:00:00 Oleg Y HEALTH 350.1.13.10 i ty [place] [id number] [facility] [address] 2021-12-28 2021-12-30 Outpatient X [facility] [id number] Univers 21:31:00 16:15:00 VINI ity [facility] 2021-04-02 2021-04-02 Telephone MINDY Rodriguez 1.2.840.114 [id number] 00:00:00 00:00:00 Oleg Y [facility] 350.1.13.10 CLINICS 4.2.7.2.686 [id number] 312 2021-04-01 2021-04-01 [facility] 1.2.840.114 [id number] 00:00:00 00:00:00 Roscoe Laughlin M[facility] 350.1.13.10 IALTY 4.2.7.2.686 [place] [id number] AND RICHARD [facility] 2020-03-07 2020-03-07 Outpatient [facility] [id number] Common 14:40:00 14:40:[address] [facility] 2019-09-10 2019-09-10 [facility] [id number] Common 15:35:00 15:35:[address] [facility] 2019-08-29 2019-08-29 [facility] [id number] Common 11:00:00 11:00:[address] [facility] 2019-08-15 2019-08-15 Outpatient [facility] [id number] Common 13:40:00 13:40:[address] [facility] 2019-02-09 2019-02-09 Outpatient [facility] [id number] Common 10:00:00 10:00:[address] [facility] 2018-10-06 2018-10-06 Outpatient [facility] [id number] Common 13:30:00 13:30:[address] [facility] 2018-10-05 2018-10-05 Outpatient [facility] [id number] Common 11:52:00 11:52:[address] [facility] 2018-09-20 2018-09-20 Out[facility] [id number] Common 14:45:00 14:45:[address] [facility] 2018-07-13 2018-07-13 Outpatient [facility] [id number] Common 09:52:00 09:52:[address] [facility] 2018-06-06 2018-06-06 Outpatient [facility] [id number] Common 10:14:00 10:14:[address] [facility] 2018-06-05 2018-06-05 Outpatient [facility] [id number] Common 14:31:00 14:31:[address] [facility] 2018-06-02 2018-06-02 Outpatient [facility] [id number] Common 21:51:00 21:51:[address] [facility] 2018-06-02 2018-06-02 Outpatient [facility] [id number] Common 11:00:00 11:00:[address] [facility] Results Test Description Test Time Test [...] 86 Unit/L 45-117 N Completed by Nursing: [id number] 17:04:00 Test Item Value Reference Range Interpretation [...] andrew yby method. Completed by Nursing: NOPROTHROMBIN [id number] 17:03:00 Test Item Value Reference Range Interpretation Comments PT PATIENT (test code = PTP) 10.8 SECONDS 9.3-12.9 N INTERNATIONAL NORMAL RATIO 0.94 INR Unit 0.8-1.2 N (test code = INR) THROMBOPLASTIN TIME [id number] 17:03:00 Test Item Value Reference Range Interpretation Comments THROMBOPLASTIN TIME PARTIAL 28.7 SECONDS 26-35 N (test code = PTT) CBC W/O [id number] 16:35:00 Test Item Value Reference Range Interpretation [...] 10.40 fL 7.0-10.5 N MPV) CHEMISTRY 8 [id number] 16:30:00 Test Item Value Reference Range Interpretation [...] 58-135 L code = GFRBED) CHEMISTRY 8 [id number] 16:30:00 Test Item Value Reference Range Interpretation [...] L (test code = GFRBED) TROPONIN I [id number] 16:28:00 Test Item Value Reference Range Interpretation Comments TROPONIN I RAPID 0.00 ng/mL 0.00-0.08 N - The use o f serial (test code = sampling and te sting TROPIRAP) protocol is a recommended pra ctice- An elevated tro ponin level alone is often not sufficient for diagnosis of my ocardial infarction. GLUCOSE BEDSIDE [id number] 16:12:00 Test Item Value Reference Range Interpretation Comments GLUCOSE BEDSIDE TESTING (test code 283 mg/dL 70-110 H = GLUBED) - CT HEAD/BRAIN W/O [id number] 16:02:00 Name: [facility] [place] : 1975 Age/S: 43 / F [id number] [address] [place] Unit #: [id number] Loc: [place] [address] Phys: Robyn Moffett MD Acct: [id number] Dis Date: Status: REG ER PHONE #: [phone] Exam Date: 07/07/2019 7659 FAX #: Reason: Code Str raine EXAMS: CPT: [id number] CT HEAD/BRAIN W/O CONT 38228 EXAMINATION: - CT HEAD/BRAIN W/O CONT. LOCATION: [...] PAGE 1 Signed Report (CONTINUED)Name: INGRIS MCLEAN [facility] : 1975 Age/S: 43 / F [id number] [place] Unit #: [id number] Loc: [place] [address] Phys: Robyn Moffett MD Acct: [id number] Dis Date: Status: REG ER PHONE #: [phone] Exam Date: 07/07/2019 9649 FAX #: Reason: Code Stroke EXAMS: CPT: [id number] CT HEAD/BRAIN W/O CONT 36959 <Continued> CC: Fani Colon COUNTER SUPPLY WORKER; Robyn Moffett MD Technologist:MARY HENLEY, RT(R)(CT)(MR) CTDI: DLP: Trnscb Date/Time: 07/07/2019 (8079) [email or web address] Orig Print D/T: S: 07/07/2019 (8799) PAGE 2 Signed Report
--- NOTE | 2022-02-26 19:52 | RAD REPORT ---
EXAM DESCRIPTION: RAD - Chest Single View - 02/26/2022 7:27 pm CLINICAL HISTORY: CHEST PAIN COMPARISON: Portable 04/20/2021 TECHNIQUE: AP portable chest image was obtained 02/26/2022 7:27 pm . FINDINGS: Lungs are clear. Heart and vasculature are normal. No measurable pleural effusion and no p neumothorax. No acute bony abnormality seen. No acute aortic findings suspected. IMPRESSION: No acute cardiopulmonary process. No significant change from comparison study.
--- NOTE | 2022-02-26 19:56 | RAD REPORT ---
EXAM DESCRIPTION: CT - Head Brain Wo Cont - 02/26/2022 7:23 pm CLINICAL HISTORY: Paresthesia COMPARISON: Ct Stroke Brain Wo Cont dated 02/03/2016 TECHNIQUE: Axial 5 mm thick images of the head were obtained without IV contrast. All CT scans are performed using dose optimization technique as appropriate and may include automated exposure control or mA/KV adjustment according to patient size. FINDINGS: No intracranial hemorrhage, mass, edema or shift of mid-line structures. No acute infarcti on changes seen. No abnormal extra-axial fluid collections. Ventricles are normal. Mastoid air cells and visualized portions of the paranasal sinuses are clear. No acute bony findings. IMPRESSION: Negative non-contrast CT head examination.
--- NOTE | 2022-02-26 20:11 | ER ---
Nurse's Notes [facility] Name: Keiry Umaña Age: 46 yrs Sex: Female : 1975 Arrival Date: 02/26/2022 Time: 18:05 Bed 3 Private MD: Diagnosis: Chest pain, unspecified Presentation: 02/26 18:15 Chief complaint: Patient states: sudden onset of chest pain just prior to arrival. Pt ss reports that she has had two episodes of chest pain as it comes and goes and after the second episode, she experienced L sided arm numbness and face numbness that concerned her. Numbness subsided when pain subsided. Coronavirus screen: Client denies travel out of the [place] in the last 14 days. Ebola Screen: Patient denies exposure to infectious person. Patient denies travel to an Ebola-affected area in the 21 days before illness onset. Initial Sepsis Screen: Does the patient meet any 2 criteria? No. Patient's initial sepsis screen is negative. Does the patient have a suspected source of infection? No. Patient's initial sepsis screen is negative. Risk Assessment: Do you want to hurt yourself or someone else? Patient reports no desire to harm self or others. Onset of symptoms was February 26, 2022. 18:15 Method Of Arrival: Ambulatory ss 18:15 Acuity: CHERYL 2 ss Historical: - Allergies: 18:16 KETAMINE; ss 18:16 Morphine; ss - PMHx: 18:16 Diabetes - IDDM; ESRD; High Cholesterol; Hypertension; PCOS; ss - PSHx: 18:16 Appendectomy; Bilteral BKA; Cholecystectomy; ss Screenin:07 Abuse screen: Denies threats or abuse. Denies injuries from another. Nutritional iw screening: No deficits noted. Tuberculosis screening: No symptoms or risk factors identified. Assessment: 18:40 General: Appears in no apparent distress. Behavior is calm, cooperative. Pain: Denies iw pain. Complains of pain in anterior aspect of left upper chest Pain does not radiate. Pain: Pain began 30 min ago. Neuro: Level of Consciousness is awake, alert, obeys commands, Oriented to person, place, time, situation, Moves all extremities. Full function. Cardiovascular: Patient's skin is warm and dry. Respiratory: Respiratory effort is even, unlabored, Respiratory pattern is regular, symmetrical. Derm: Skin is intact, is healthy with good turgor. Musculoskeletal: Range of motion: intact in all extremities. 19:07 Reassessment: lab paged to draw labs. iw 19:15 Reassessment: Attempted to draw labs with no success, called lab and requested a lab vc1 draw. 19:30 Reassessment: Pt stated "If I am not having a heartattack or a stroke I just want to go vc1 home.". 19:50 Reassessment: Lab called to request lab draw. vc1 20:10 Reassessment: Lab at bedside, pt refusing lab draw stating she just wants to go home, vc1 Provider notified. Pt. provided with AMA form. Vital Signs: 18:15 BP 175 / 81; Pulse 89; Resp 16; Temp 99.1(TE); Pulse Ox 100% on R/A; Weight 119.75 kg; ss Height 6 ft. 0 in. (182.88 cm); 18:15 Body Mass Index 35.80 (119.75 kg, 182.88 cm) ED Course: 18:05 Patient arrived in ED. mr 18:09 Reji Song, JORGE is PHCP. pm1 18:09 Dianne Connolly MD is Attending Physician. pm1 18:12 Karen Garcia, CHERI is Primary Nurse. iw 18:16 Triage completed. ss 18:16 Arm band placed on right wrist. ss 18:20 EKG done, by ED staff. tm3 18:55 Missed attempt(s): 22 gauge in left upper arm. Bleeding controlled, band aid applied, iw catheter tip intact. 19:24 CT Head Brain wo Cont In Process Unspecified. EDMS 19:28 XRAY Chest (1 view) In Process Unspecified. EDMS Administered Medications: No medications were administered Outcome: 20:11 Discharge ordered by MD. pm1 20:25 Patient left the ED. vc1 Signatures: Dispatcher [employer] EDMS TrishJere [email or web address] ReyesSakina mr Karen Garcia, CHERI ALONZO iw Grace Crews RN RN Reji Song, JORGE GILL BOX FIXER pm1 Patricia Lo RN RN vc1 Corrections: (The following items were deleted from the chart) 18:17 18:16 PMHx: bilateral foot amputee; ss ss
--- NOTE | 2022-02-26 20:12 | EDPHYS ---
Physician Documentation [facility] Name: Keiry Umaña Age: 46 yrs Sex: Female : 1975 Arrival Date: 02/26/2022 Time: 18:05 Bed 3 Private MD: ED Physician Dianne Connolly HPI: 02/26 18:16 This 46 yrs old Unknown Female presents to ER via Ambulatory with complaints of Chest pm1 Pain. 18:16 The patient or guardian reports chest pain that is located primarily in the anterior pm1 aspect of left upper chest. Onset: 45 minute(s) ago. The pain does not radiate. Associated signs and symptoms: Pertinent positives: numbness to left side of face, Pertinent negatives: abdominal pain, cough, dizziness, headache, nausea, palpitations, shortness of breath, vomiting. The chest pain is described as sharp. Duration: The patient or guardian reports multiple episodes, approximately 2 episodes since symptom onset, the episodes last approximately 5 minute(s). Modifying factors: The symptoms are alleviated by nothing. the symptoms are aggravated by nothing. Severity of pain: in the emergency department the pain has improved. The patient has experienced similar episodes in the past, a few times. The patient has not recently seen a physician. Historical: - Allergies: 18:16 KETAMINE; ss 18:16 Morphine; ss - PMHx: 18:16 Diabetes - IDDM; ESRD; High Cholesterol; Hypertension; PCOS; ss - PSHx: 18:16 Appendectomy; Bilteral BKA; Cholecystectomy; ss ROS: 18:16 Constitutional: Negative for fever, chills, and weight loss, Respiratory: Negative for pm1 shortness of breath, cough, wheezing, and pleuritic chest pain. 18:16 Abdomen/GI: Negative for abdominal pain, nausea, vomiting, diarrhea, and constipation, Back: Negative for injury and pain, : Negative for injury, bleeding, discharge, and swelling, MS/Extremity: Negative for injury and deformity, Skin: Negative for injury, rash, and discoloration. 18:16 Cardiovascular: Positive for chest pain, Negative for edema, orthopnea, palpitations. 18:16 Neuro: Positive for numbness, of the left side of face, Negative for weakness. 18:16 All other systems are negative. Exam: 18:16 Constitutional: This is a well developed, well nourished patient who is awake, alert, pm1 and in no acute distress. Head/Face: Normocephalic, atraumatic. 18:16 Back: No spinal tenderness. No costovertebral tenderness. Full range of motion. Skin: Warm, dry with normal turgor. Normal color with no rashes, no lesions, and no evidence of cellulitis. MS/ Extremity: Pulses equal, no cyanosis. Neurovascular intact. Full, normal range of motion. 18:16 Eyes: Exam is negative for acute changes, Extraocular movements: no acute changes, Conjunctiva: no acute changes, Sclera: no acute changes, icterus, is not appreciated. 18:16 ENT: Exam is negative for acute changes, Mouth: no acute changes, Lips: normal, moist, Oral mucosa: normal, pink and intact, moist. 18:16 Cardiovascular: Exam negative for acute changes, Rate: normal, Rhythm: regular, Pulses: no pulse deficits are appreciated. 18:16 Respiratory: Exam negative for acute changes, respiratory distress, shortness of breath, Breath sounds: are clear throughout. 18:16 Abdomen/GI: Exam negative for acute changes, Inspection: abdomen appears normal, Palpation: abdomen is soft and non-tender, in all quadrants. 18:16 Neuro: Exam negative for acute changes, Orientation: is normal, Mentation: is normal, Motor: is normal, moves all fours. Vital Signs: 18:15 BP 175 / 81; Pulse 89; Resp 16; Temp 99.1(TE); Pulse Ox 100% on R/A; Weight 119.75 kg; ss Height 6 ft. 0 in. (182.88 cm); 18:15 Body Mass Index 35.80 (119.75 kg, 182.88 cm) ss MDM: 18:16 Patient medically screened. pm1 18:16 Data reviewed: vital signs. Data interpreted: Pulse oximetry: on room air is 100 %. pm1 Interpretation: normal. 20:06 Refusal of service: The patient/guardian displays adequate decision making capability pm1 and despite a detailed discussion of alternatives, benefits, risks, and consequences refuses: Admission to the hospital for further work-up and treatment, all lab tests, Explained to the patient that I have already discussed admitting her to the hospital with the night hospitalist who agreed to keep her in the hospital. We were just pending lab results. Her history of HPI and medical history are criteria enough for me to admit her for chest pain admission without the pending labs. The patient wants to go home regardless because she has been chest pain free since she has arrived and is feeling better. 02/26 18:08 Order name: XRAY Chest (1 view); Complete Time: 19:55 [facility] 02/26 18:08 Order name: EKG; Complete Time: 18:08 [facility] 02/26 18:08 Order name: Cardiac monitoring [facility] 02/26 18:08 Order name: EKG - Nurse/Tech [facility] 02/26 18:08 Order name: IV Saline Lock [facility] 02/26 18:52 Order name: CT Head Brain wo Cont; Complete Time: 19:58 pm1 02/26 18:08 Order name: Labs collected and sent [facility] 02/26 18:08 Order name: O2 Per Protocol [facility] 02/26 18:08 Order name: O2 Sat Monitoring [facility] Administered Medications: No medications were administered Disposition Summary: 02/26/22 20:11 Discharge Ordered Location: Home pm1 Problem: new pm1 Symptoms: are resolved pm1 Condition: Undetermined pm1 Diagnosis - Chest pain, unspecified pm1 Followup: pm1 - With: Emergency Department - When: As needed - Reason: Worsening of condition Followup: pm1 - With: Private Physician - When: Upon discharge from the Emergency Department - Reason: Recheck today's complaints, Continuance of care, Re-evaluation by your physician Discharge Instructions: - Discharge Summary Sheet pm1 - Nonspecific Chest Pain, Adult pm1 Forms: - Medication Reconciliation Form pm1 - Thank You Letter pm1 - Antibiotic Education pm1 - Prescription Opioid Use pm1 Signatures: Dispatcher [employer] Grace Garcia RN RN ss Marinas, Patrick, MEDIA PROFESSIONAL MEDIA PROFESSIONAL pm1 Dianne Connolly MD MD ma2 Corrections: (The following items were deleted from the chart) 18:17 18:16 PMHx: bilateral foot amputee; [facility]
[2022-02-26 20:29] VITALS: BP 175/81; TEMP 99.1; O2SAT 100
--- NOTE | 2022-02-27 11:07 | EKG ---
Test Date: 2022-02-26 Test Time: 18:14:43 Chemical Compounder: TM MEASUREMENT RESULTS: Intervals: Rate: 81 MO: 120 QRSD: 86 QT: 434 QTc: 504 [place]: P: 49 MO: 120 QRS: 15 T: 133 INTERPRETIVE STATEMENTS: Normal sinus rhythm T wave abnormality, consider lateral ischemia Prolonged QT Abnormal ECG Compared to ECG 04/19/2021 23:34:57 T-wave abnormality now present Possible ischemia now present ST (T wave) deviation no longer present Electronically Signed On 02-27-22 11:06:05 CDT by Mehdi Damico
== END 2022-02-26 20:25 | disposition home or self-care (01) ==
LOC: ER 18:04
DX: R07.9 Chest pain, unspecified (principal); E11.22 Type 2 diabetes mellitus with diabetic chronic kidney disease; I12.0 Hypertensive chronic kidney disease with stage 5 chronic kidney disease or end stage renal disease; N18.6 End stage renal disease; Z88.4 Allergy status to anesthetic agent; Z88.5 Allergy status to narcotic agent; Z89.511 Acquired absence of right leg below knee; Z89.512 Acquired absence of left leg below knee
CPT/HCPCS: 70450; 71045; 85025; 93005; 99283

== ENCOUNTER 2024-01-07 23:45 | Inpatient (IN) | payer BC ==
--- OUTSIDE RECORDS SUMMARY | 2024-01-07 23:48 | XMS REPORT | Clinical Summary ---
Author Name Unknown Organization [facility] Address [address] [place] [address] Care Team Providers Care Verse Writer Name Role Phone Brooke Steward MD Primary Care Provider [phone] Allergies Active Allergy Reactions Criticality Noted Date Comments Ketamine Anxiety,Palpitations Low 02/09/2019 Other reaction(s): Hallucinations Morphine High 04/09/2016 Other reaction(s): Confusion/Agitation allucinations Medications Medication Sig Dispensed Refills Start Date End Date Status LEVEMIR FLEXTOUCH U-100 INSULN 100 unit/mL (3 mL) insulin pen Inject 35 Units under the skin 3 (three) times a day. 1 09/25/2018 Active acetaminophen-codeine (TYLENOL #3) 300 mg-30 mg tablet Take 2 tablets by mouth as needed. 0 01/08/2019 Active amLODIPine (NORVASC) 10 mg tablet Take 1 tablet by mouth daily. 3 03/07/2019 Active famotidine (PEPCID) 20 mg tablet Take 1 tablet by mouth as needed. 0 01/08/2019 Active hydrALAZINE (APRESOLINE) 50 mg tablet Take 1 tablet by mouth daily. 0 04/02/2019 Active insulin aspart U-100 (NovoLOG Flexpen U-100 Insulin) 100 unit/mL (3 mL) insulin pen Inject 35 Units under the skin twice daily. 0 04/10/2015 Active lisinopril (PRINIVIL,ZESTRIL) 10 mg tablet Take 20 mg by mouth daily. 0 04/02/2019 Active BYSTOLIC 5 mg tablet Take 1 tablet by mouth daily. 2 01/22/2019 Active Active Problems Problem Noted Date Diagnosed Date Left upper quadrant pain 07/05/2019 Overview: Added automatically from request for surgery [id number] Family history of malignant neoplasm of pancreas 07/05/2019 Overview: Added automatically from request for surgery [id number] Diarrhea 07/05/2019 Overview: Added automatically from request for surgery [id number] Family history of cancer of colon 07/05/2019 Overview: Added automatically from request for surgery [id number] Surgical History Surgery Date Site/Laterality Comments APPENDECTOMY 04/09/2019 - 05/09/2019 COLONOSCOPY 10/10/2014 - 10/09/2015 CHOLECYSTECTOMY 10/10/2003 - 10/09/2004 [place] EDG US EXAM SURGICAL ALTER STOM DUODENUM/JEJUNUM 07/09/2019 N/A Procedure: UPPER GASTROINTESTINAL ENDOSCOPY WITH ENDOSCOPIC ULTRASOUND EXAMINATION; Surgeon: Brooke Steward MD; Location: MAIN ENDOSCOPY; Service: GASTROENTEROLOGY Medical History Medical History Date Comments Hypertension MARCH 2018 Hyperlipidemia 2016 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 Pneumonia DECEMBER 2018 Fatty liver APRIL 2019 Kidney failure 2016 History of recurrent urinary tract infection ALL MY LIFE Polycystic ovarian syndrome 1996 Endometriosis 1996 Blood transfusion, without reported diagnosis 20 13 Osteomyelitis 2009 Diabetes mellitus 1995 Depressive disorder 2010 Anxiety 2010 Family History [...] Tobacco Use Types Packs/Day Years Used Date Smoking Tobacco: Never Smokeless Tobacco: Never Alcohol Use Standard Drinks/Week Comments Never 0 (1 standard drink = 0.6 oz pur e alcohol) Sex and Gender Information Value Date Recorded Sex Assigned at Female 06/25/2019 7:42 PM CDT Gender Identity Female 06/25/2019 7:42 PM CDT Sexual Orientation Straight 06/25/2019 7: 42 PM CDT Obstetrics History Plan of Treatment Health Maintenance Due Date Last Done Comments COVID-19 Vaccine (#1) 06/26/1978 Influenza Vaccine 06/10/2023 Care Teams Verse Writer Relationship Specialty Start Date End Date Brooke Steward MD [address] [place] [id number] PCP - General Gastroenterology, Hepatology and Nutrition 06/29/19
[2024-01-08] MEDS ORDERED: PROMETHAZINE INJ 25 MG/ML AMP ONE (00:12)
[2024-01-08] MEDS ORDERED: FENTANYL CITR 100 MCG/2 ML ONE ×4 (00:12→10:35)
[2024-01-08] MEDS ORDERED: NA CHLORIDE 0.9% 50 ML ONE (00:13)
[2024-01-08 00:22] LABS: Absolute Basophils 0.1 K/uL (0-0.5); Absolute Eosinophils 0.2 K/uL (0-0.5); Absolute Lymphocytes (CBC) 1.2 K/uL (0.7-4.9); Absolute Monocytes 0.5 K/uL (0.1-1.3); Absolute Neutrophil 7.1 K/uL (1.8-8.0); Basophils % 0.6 % (0-1.3); Eosinophils % 2.7 % (0-4.4); Hematocrit 31.1 % (36.0-45.0); Hemoglobin 10.3 g/dL (12.0-15.0); Lymphocytes % 13.1 % (15.3-44.8); MCH 30.6 pg (27.0-35.0); MCHC 33.3 g/dL (32.0-36.0); MCV 92.1 fL (80-100); Monocytes % 5.7 % (3.3-12.3); Neutrophils % 77.9 % (41.7-73.7); Platelets 314 thou/uL (152-406); RBC Red Blood Cell Count 3.38 M/uL (3.86-4.86); Red Cell Distribution Width 16.6 % (12.1-15.2)
[2024-01-08] MEDS ORDERED: NA CHLORIDE 0.9% 500 ML ONE (00:25)
[2024-01-08 00:29] LABS: PT Prothrombin Time 13.7 SECONDS (9.5-12.5); Protime INR 1.25
[2024-01-08 01:01] LABS: AST/SGOT 5 U/L (15-37); Albumin 2.1 g/dL (3.4-5.0); Albumin/Globulin Ratio 0.5 (1.1-1.8); Alkaline Phosphatase 89 U/L (45-117); Anion Gap 12.8 mEq/L (5.0-15.0); BUN Blood Urea Nitrogen 47 mg/dL (7-18); Bicarbonate 27 mEq/L (21-32); Bilirubin Direct 0.2 mg/dL (0-0.2); Bilirubin Indirect, Calculated 0.2 mg/dL (0.2-0.8); Bilirubin Total 0.4 mg/dL (0.2-1.0); Globulin 4.4 g/dL (2.3-3.5); Glucose Level 173 mg/dL (74-106); Lipase 26 U/L (13-75); Magnesium 1.9 mg/dL (1.6-2.4); Potassium 3.8 mEq/L (3.5-5.1); Protein, Total 6.5 g/dL (6.4-8.2); Sodium Level 135 mEq/L (136-145)
[2024-01-08 01:02] LABS: ALT/SGPT < 10 U/L (13-56); Glomerular Filtration Rate 5 ml/min (=/>90)
[2024-01-08 01:03] LABS: NT PRO-BNP > 175000 pg/mL (<125)
[2024-01-08 01:05] LABS: Troponin High Sensitivity 144.4 pg/mL (<58.9)
--- NOTE | 2024-01-08 01:47 | ER ---
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 [facility] gave 10mg reglan, 50mcg fentanyl, and 1000mL NS bolus. Coronavirus screen: Vaccine status: Patient reports being unvaccinated. Ebola Screen: Patient negative for fever greater than or equal to 101.5 degrees Fahrenheit, and additional compatible Ebola Virus Disease symptoms Patient denies exposure to infectious person. Patient denies travel to an Ebola-affected area in the 21 days before illness onset. No symptoms or risks identified at this time. Initial Sepsis Screen: Does the patient meet any 2 criteria? No. Patient's initial sepsis screen is negative. Does the patient have a suspected source of infection? No. Patient's initial sepsis screen is negative. Risk Assessment: Do you want to hurt yourself or someone else? Patient reports no desire to harm self or others. Onset of symptoms was January 07, 2024 at 10:00. Care prior to arrival: Medication(s) given: Normal saline infusion, 1000 mL, 10mg reglan, 50mcg fentanyl. 23:46 Method Of Arrival: EMS: [facility] tm6 23:46 Acuity: CHERYL 3 tm6 Triage Assessment: 01/07 00:09 General: Appears in no apparent distress. uncomfortable, Behavior is calm, cooperative. tm6 Pain: Complains of pain in left upper quadrant and left lower quadrant and left low back Pain currently is 7 out of 10 on a pain scale. Quality of pain is described as sharp, Pain began 1 day ago. EENT: No signs and/or symptoms were reported regarding the EENT system. Neuro: Level of Consciousness is awake, alert, obeys commands, Oriented to person, place, time, situation. Cardiovascular: Patient's skin is warm and dry. Respiratory: Airway is patent Respiratory effort is even, unlabored, Respiratory pattern is regular, symmetrical. GI: Abdomen is flat, non-distended, Abd is soft and non tender X 4 quads. Reports lower abdominal pain, upper abdominal pain, nausea, vomiting. : No signs and/or symptoms were reported regarding the genitourinary system. Derm: No signs and/or symptoms reported regarding the dermatologic system. Musculoskeletal: No signs and/or symptoms reported regarding the musculoskeletal system. Historical: - Allergies: 01/06 23:49 KETAMINE; tm6 23:49 Morphine; tm6 - PMHx: 23:49 Diabetes - IDDM; ESRD; PCOS; Hypertension; High Cholesterol; Hypothyroidism; Congestive tm6 heart failure; - PSHx: 23:49 Appendectomy; Bilteral BKA; Cholecystectomy; coronary stents (Cholecystectomy); tm6 - Immunization history:: Adult Immunizations up to date, Client reports having NOT received the Covid vaccine. Flu vaccine is not up to date. - Social history:: Smoking status: Patient denies any tobacco usage or history of. Patient/guardian denies using alcohol, street drugs. Screenin/31 00:11 [facility] ED Fall Risk Assessment (Adult) History of falling in the last 3 months, tm6 including since admission No falls in past 3 months (0 pts) Confusion or Disorientation No (0 pts) Intoxicated or Sedated No (0 pts) Impaired Gait No (0 pts) Mobility Assist Device Used Yes (1 pt) Altered Elimination No (0 pt) Score/Fall Risk Level 0 - 2 = Low Risk Oriented to surroundings, Maintained a safe environment. Abuse screen: Denies threats or abuse. Denies injuries from another. Nutritional screening: No deficits noted. Tuberculosis screening: No symptoms or risk factors identified. Assessment: 00:11 Reassessment: see triage assessment. GI: Bowel sounds present X 4 quads. tm6 01:19 Reassessment: Patient and/or family updated on plan of care and expected duration. Pain tm6 level reassessed. Patient is alert, oriented x 3, equal unlabored respirations, skin warm/dry/pink. 02:59 Reassessment: Patient and/or family updated on plan of care and expected duration. Pain tm6 level reassessed. Patient is alert, oriented x 3, equal unlabored respirations, skin warm/dry/pink. Vital Signs: 01/06 23:46 BP 111 / 89; Pulse 80; Resp 18; Temp 97.7(O); Pulse Ox 100% on R/A; Weight 115.21 kg; tm6 Height 6 ft. 0 in. ; Pain 03/19; 01/07 00:12 BP 123 / 81; Pulse 82; Pulse Ox 100% on R/A; tm6 01:19 BP 116 / 73; Pulse 66; Pulse Ox 100% on R/A; tm6 02:59 BP 113 / 70; Pulse 74; Pulse Ox 100% on R/A; tm6 01/06 23:46 Body Mass Index 34.45 (115.21 kg, 182.88 cm) tm6 01/06 23:46 Pain Scale: Adult tm6 ED Course: 01/06 23:45 Patient arrived in ED. tm6 23:46 Gloria Harrison, CHERI is Primary Nurse. tm6 23:49 Triage completed. tm6 23:52 Joe Vyas MD is Attending Physician. [facility] 01/07 00:09 Arm band placed on right wrist. tm6 00:11 Patient has correct armband on for positive identification. Placed in gown. Bed in low tm6 position. Call light in reach. Side rails up X2. Provided Education on: plan of care. Client placed on continuous cardiac and pulse oximetry monitoring. NIBP monitoring applied. Pulse ox on. NIBP on. Door closed. Noise minimized. Lights dimmed. Warm blanket given. 00:23 Initial lab(s) drawn, by or, sent to lab. kmf 00:30 CT Chest Abdomen Pelvis W/O Contrast In Process Unspecified. EDMS 00:45 XRAY Chest (1 view) In Process Unspecified. EDMS 01:42 Richard Suh DO is Referral Physician. sonali 01:45 Dianne Roberts MD is Hospitalizing Provider. sonali 03:10 No provider procedures requiring assistance completed. Patient admitted, IV remains in rv place. 10:38 Missed attempt(s): 22 gauge in right antecubital area. Bleeding controlled, band aid ll1 applied, catheter tip intact. Administered Medications: 00:06 Not Given (Physician Discretion): ondansetron 4 mg IVP once; over 2 minutes jb4 00:06 Not Given (Physician Discretion): morphineor iv 2 mg IVP once over 4 mins jb4 00:06 Not Given (Physician Discretion): morphineor iv 2 mg IVP once over 4 mins jb4 00:28 Drug: fentaNYL (PF) IVP 25 mcg IVP once Route: IVP; Site: left antecubital; cm10 03:11 Follow up: Response: No adverse reaction rv 00:39 Drug: NS 0.9% IV 500 ml IV at bolus once Route: IV; Rate: bolus; Site: left antecubital;cm10 03:12 Follow up: IV Status: Completed infusion rv 00:39 Drug: Promethazine IVP 12.5 mg IVP once Route: IVP; Site: left antecubital; cm10 03:11 Follow up: Response: No adverse reaction rv 02:16 Drug: Aspirin PO Chewable Tablet 81 mg PO once Route: PO; tm6 03:11 Follow up: Response: No adverse reaction rv 02:16 Drug: Famotidine IVP 20 mg IVP once; dilute with 10 mL 0.9% NaCl; give over 2 minutes tm6 Route: IVP; Site: left antecubital; 03:11 Follow up: Response: No adverse reaction rv 02:21 Drug: fentaNYL (PF) IVP 25 mcg IVP once Route: IVP; Site: left antecubital; tm6 03:11 Follow up: Response: No adverse reaction rv 06:13 Drug: fentaNYL (PF) IVP 50 mcg IVP once Route: IVP; Site: left antecubital; rv Medication: 00:11 VIS not applicable for this client. tm6 Outcome: 01:42 Discharge ordered by . sonali 01:46 Decision to Hospitalize by Provider. sonali 03:11 Admitted to ER Hold. Please see [facility] for further documentation. rv 03:11 Condition: stable 03:11 Instructed on the need for admit, 15:41 Patient left the ED. mb9 Signatures: Dispatcher [employer] EDMS Joe Vyas MD MD cha Vicente, Ronaldo RN RN rv Lana Amato RN RN ll1 Sakina Ramirez RN RN mb9 Brooke Dowell RN RN cm10 Pam Ramirez [facility] Gloria Harrison RN RN tm6 Wero Day RN jb4
--- NOTE | 2024-01-08 01:47 | EDPHYS ---
Physician Documentation [facility] Name: Keiry Umaña Age: 48 yrs Sex: Female : 1975 Arrival Date: 01/07/2024 Time: 23:45 Bed 14 Private MD: KELLY Physician Joe Vyas HPI: 01/07 00:00 This 48 yrs old Unknown Female presents to ER via EMS with complaints of Flank Pain, sonali Abdominal Pain. 00:00 The patient complains of pain in the mid back area, left low back, left mid back and sonali right low back. The pain does not radiate. Onset: The symptoms/episode began/occurred today. Modifying factors: The symptoms are alleviated by nothing. the symptoms are aggravated by nothing. Associated signs and symptoms: Pertinent positives: nausea, vomiting. Severity of pain: At its worst the pain was mild moderate in the emergency department the pain is unchanged. The patient has not experienced similar symptoms in the past. Historical: - Allergies: 01/06 23:49 KETAMINE; tm6 23:49 Morphine; tm6 - PMHx: 23:49 Diabetes - IDDM; ESRD; PCOS; Hypertension; High Cholesterol; Hypothyroidism; Congestive tm6 heart failure; - PSHx: 23:49 Appendectomy; Bilteral BKA; Cholecystectomy; coronary stents (Cholecystectomy); tm6 - Immunization history:: Adult Immunizations up to date, Client reports having NOT received the Covid vaccine. Flu vaccine is not up to date. - Social history:: Smoking status: Patient denies any tobacco usage or history of. Patient/guardian denies using alcohol, street drugs. ROS: 01/07 00:01 Constitutional: Negative for fever, chills, and weight loss, Eyes: Negative for injury, sonali pain, redness, and discharge, ENT: Negative for injury, pain, and discharge, Neck: Negative for injury, pain, and swelling, Cardiovascular: Negative for chest pain, palpitations, and edema, Respiratory: Negative for shortness of breath, cough, wheezing, and pleuritic chest pain, Back: Negative for injury and pain, : Negative for injury, bleeding, discharge, and swelling, MS/Extremity: Negative for injury and deformity, Skin: Negative for injury, rash, and discoloration, Neuro: Negative for headache, weakness, numbness, tingling, and seizure, Psych: Negative for depression, anxiety, suicide ideation, homicidal ideation, and hallucinations, Allergy/Immunology: Negative for hives, rash, and allergies, Endocrine: Negative for neck swelling, polydipsia, polyuria, polyphagia, and marked weight changes, Hematologic/Lymphatic: Negative for swollen nodes, abnormal bleeding, and unusual bruising, Abdomen/GI: Positive for abdominal pain, nausea and vomiting, Exam: 00:01 Constitutional: This is a well developed, well nourished patient who is awake, alert, sonali and in no acute distress. Head/Face: Normocephalic, atraumatic. Eyes: Pupils equal round and reactive to light, extra-ocular motions intact. Lids and lashes normal. Conjunctiva and sclera are non-icteric and not injected. Cornea within normal limits. Periorbital areas with no swelling, redness, or edema. ENT: Nares patent. No nasal discharge, no septal abnormalities noted. Tympanic membranes are normal and external auditory canals are clear. Oropharynx with no redness, swelling, or masses, exudates, or evidence of obstruction, uvula midline. Mucous membranes moist. Neck: Trachea midline, no thyromegaly or masses palpated, and no cervical lymphadenopathy. Supple, full range of motion without nuchal rigidity, or vertebral point tenderness. No Meningismus. Chest/axilla: Normal chest wall appearance and motion. Nontender with no deformity. No lesions are appreciated. Cardiovascular: Regular rate and rhythm with a normal S1 and S2. No gallops, murmurs, or rubs. Normal PMI, no JVD. No pulse deficits. Respiratory: Lungs have equal breath sounds bilaterally, clear to auscultation and percussion. No rales, rhonchi or wheezes noted. No increased work of breathing, no retractions or nasal flaring. Abdomen/GI: Soft, non-tender, with normal bowel sounds. No distension or tympany. No guarding or rebound. No evidence of tenderness throughout. Back: No spinal tenderness. No costovertebral tenderness. Full range of motion. Skin: Warm, dry with normal turgor. Normal color with no rashes, no lesions, and no evidence of cellulitis. MS/ Extremity: Pulses equal, no cyanosis. Neurovascular intact. Full, normal range of motion. Neuro: Awake and alert, GCS 15, oriented to person, place, time, and situation. Cranial nerves II-XII grossly intact. Motor strength 5/5 in all extremities. Sensory grossly intact. Cerebellar exam normal. Normal gait. Psych: Awake, alert, with orientation to person, place and time. Behavior, mood, and affect are within normal limits. 00:01 Abdomen/GI: Inspection: abdomen appears normal, WITH PD CATHTETER, 02:15 ECG was reviewed by the Attending Physician. [facility] Vital Signs: 01/06 23:46 BP 111 / 89; Pulse 80; Resp 18; Temp 97.7(O); Pulse Ox 100% on R/A; Weight 115.21 kg; tm6 Height 6 ft. 0 in. ; Pain 6/10; 01/07 00:12 BP 123 / 81; Pulse 82; Pulse Ox 100% on R/A; tm6 01:19 BP 116 / 73; Pulse 66; Pulse Ox 100% on R/A; tm6 02:59 BP 113 / 70; Pulse 74; Pulse Ox 100% on R/A; tm6 01/06 23:46 Body Mass Index 34.45 (115.21 kg, 182.88 cm) 6 01/06 23:46 Pain Scale: Adult 6 MDM: 01/06 23:52 Patient medically screened. [facility] 01/07 00:02 Differential diagnosis: UTI, pancreatitis, Nonspecific abd pain, gastritis, sonali cholecystitis, pancreatitis, appendicitis, viral gastroenteritis, gastroenteritis. Data reviewed: vital signs, nurses notes, lab test result(s), EKG, radiologic studies, CT scan, plain films. Consideration of Admission/Observation Escalation of care including admission/observation considered. I considered the following discharge prescriptions or medication management in the emergency department Medications were administered in the Emergency Department. See MAR. Independent interpretation of the following test(s) in the Emergency Department EKG: See my EKG interpretation above. Test considered but Not performed: Ultrasound NO ABD USG. Care significantly affected by the following chronic conditions: Diabetes, Hypertension, Congestive Heart Failure, Obesity, Chronic Kidney Disease. 01/06 23:57 Order name: Basic Metabolic Panel; Complete Time: 01:39 [facility] 01/06 23:57 Order name: CBC with Diff; Complete Time: 00:49 [facility] 01/06 23:57 Order name: LFT's; Complete Time: 01:39 [facility] 01/06 23:57 Order name: Magnesium; Complete Time: 01:39 [facility] 01/06 23:57 Order name: NT PRO-BNP; Complete Time: 01:39 [facility] 01/06 23:57 Order name: PT-INR; Complete Time: 00:49 [facility] 01/06 23:57 Order name: Troponin HS; Complete Time: 01:39 [facility] 01/06 23:57 Order name: Lipase; Complete Time: 01:39 [facility] 01/07 01:45 Order name: Urinalysis w/ reflexes [facility] 01/07 03:13 Order name: CBC with Automated Diff EDMO 01/07 03:13 Order name: CBC with Automated Diff EDMS 01/07 03:13 Order name: Comprehensive Metabolic Panel EDMO 01/07 03:13 Order name: Comprehensive Metabolic Panel [facility] 01/07 12:53 Order name: Troponin High Sensitivity [facility] 01/06 23:57 Order name: XRAY Chest (1 view) [facility] 01/06 23:57 Order name: CT Chest Abdomen Pelvis W/O Contrast [facility] 01/06 23:57 Order name: EKG; Complete Time: 23:57 [facility] 01/06 23:57 Order name: Cardiac monitoring; Complete Time: 00:28 [facility] 01/06 23:57 Order name: EKG - Nurse/Tech; Complete Time: 00:28 [facility] 01/06 23:57 Order name: IV Saline Lock; Complete Time: 00:28 [facility] 01/06 23:57 Order name: Labs collected and sent; Complete Time: 00:28 [facility] 01/06 23:57 Order name: O2 Per Protocol; Complete Time: 00:13 [facility] 01/06 23:57 Order name: O2 Sat Monitoring; Complete Time: 00:13 [facility] EC:15 Rate is 76 beats/min. Rhythm is regular. QRS [place] is Normal. MA interval is normal. QRS sonali interval is normal. QT interval is normal. No Q waves. T waves are Normal. No ST changes noted. Clinical impression: NSR w/ Non-specific ST/T Changes and No evidence of ischemia. Interpreted by me. Reviewed by me. Administered Medications: 00:06 Not Given (Physician Discretion): ondansetron 4 mg IVP once; over 2 minutes jb4 00:06 Not Given (Physician Discretion): morphineor iv 2 mg IVP once over 4 mins jb4 00:06 Not Given (Physician Discretion): morphineor iv 2 mg IVP once over 4 mins jb4 00:28 Drug: fentaNYL (PF) IVP 25 mcg IVP once Route: IVP; Site: left antecubital; cm10 03:11 Follow up: Response: No adverse reaction rv 00:39 Drug: NS 0.9% IV 500 ml IV at bolus once Route: IV; Rate: bolus; Site: left antecubital;cm10 03:12 Follow up: IV Status: Completed infusion rv 00:39 Drug: Promethazine IVP 12.5 mg IVP once Route: IVP; Site: left antecubital; cm10 03:11 Follow up: Response: No adverse reaction rv 02:16 Drug: Aspirin PO Chewable Tablet 81 mg PO once Route: PO; tm6 03:11 Follow up: Response: No adverse reaction rv 02:16 Drug: Famotidine IVP 20 mg IVP once; dilute with 10 mL 0.9% NaCl; give over 2 minutes tm6 Route: IVP; Site: left antecubital; 03:11 Follow up: Response: No adverse reaction rv 02:21 Drug: fentaNYL (PF) IVP 25 mcg IVP once Route: IVP; Site: left antecubital; tm6 03:11 Follow up: Response: No adverse reaction rv 06:13 Drug: fentaNYL (PF) IVP 50 mcg IVP once Route: IVP; Site: left antecubital; rv Disposition Summary: 01/08/24 01:46 Hospitalization Ordered Notes: Hospitalization Status: Observation sonali Provider: Dianne Roberts cha Condition: Fair(01/08/24 01:46) sonali Problem: new(01/08/24 01:46) sonali Symptoms: have improved(01/08/24 01:46) sonali Bed/Room Type: Standard sonali Location: Telemetry/MedSurg (observation)(01/08/24 14:25) ja1 Room Assignment: 204(01/08/24 14:49) ja1 Diagnosis - Abdominal pain, Generalized(01/08/24 01:46) sonali - Dependence on renal dialysis - peritoneal(01/08/24 01:46) sonali - Pleural condition, unspecified - bilateral sonali - Abnormal levels of other serum enzymes - elevated TROPONIN sonali Forms: - Medication Reconciliation Form sonali - SBAR form sonali - Leadership Thank You Letter sonali Signatures: Dispatcher [employer] EDJoe Choi MD MD cha Bryson, James, RN RN jb4 Hua Monge, RN RN ja1 Myron Santamaria, RN RN Brooke Becerra, RN RN 10 Gloria Harrison, RN RN tm6 Corrections: (The following items were deleted from the chart) 01/06 23:57 23:57 Chest Abdomen Pelvis Wo Con+CT.RAD.BRZ ordered. EDMS EDMS 01/07 01:42 01:42 Home sonali sonali 01:42 01:42 new sonali sonali 01:42 01:42 have improved sonali sonali 01:42 01:42 Stable sonali sonali 01:42 01:42 Abdominal pain, Generalized sonali sonali 01:42 01:42 Nausea with vomiting, unspecified sonali sonali 01:42 01:42 Dependence on renal dialysis - PERITONEAL sonali sonali 01:45 01:45 Urinalysis+U.LAB.BRZ ordered. EDMS EDMS 03:19 01:46 Telemetry/MedSurg (observation) sonali jb4 03:19 01:46 sonali jb4 14:25 03:19 [facility] ER HOLD jb4 ja1 14:25 03:19 ERHOLD- jb4 ja1 14:49 14:25 [facility] ja1 ja1
[2024-01-08] MEDS ORDERED: FAMOTIDINE 20 MG/2 ML VIAL IV ONE (02:08)
[2024-01-08] MEDS ORDERED: ASPIRIN 81 MG CHEWABLE TABLET ONE (02:08)
[2024-01-08] MEDS: CEFTRIAXONE 1,000 MG in NA CHLORIDE 0.9% 50 ML IVPB ONE (03:08)
[2024-01-08] MEDS ORDERED: ACETAMINOPHEN 500 MG TAB PO PRN (03:08)
[2024-01-08] MEDS: METHYLPREDNISOLONE 125 MG INJ IV ONE (03:08)
[2024-01-08] MEDS: METRONIDAZOLE 500mg IVPB 500 MG/100 ML BAG IV SCH (03:11)
--- NOTE | 2024-01-08 03:12 | P.HP ---
Certification for Inpatient Patient admitted to: Observation With expected LOS: <2 Midnights Patient will require the following post-hospital care: None Practitioner: I am a practitioner with admitting privileges, knowledge of patient current condition, hospital course, and medical plan of care. Services: Services provided to patient in accordance with Admission requirements found in Title 42 Section 412.3 of the Code of Federal Regulations Patient History Date of Service: 01/08/24 Reason for admission: Abdominal pain; ESRD on peritoneal dialysis; elevated troponin History of Present Illness: Patient is a 48-year-old female who came to the emergency room with abdominal discomfort. She states she was seen by her veterans service representative earlier in the week, and she was told that she had a urinary tract infection. She was started on ciprofloxacin. She been taking her antibiotics as prescribed; however, she states that she was still having some abdominal discomfort. She decided to come into the emergency room for further evaluation. In the ER patient was having abdominal complaints. Patient states that she was hurting in the back and the left flank. Patient was evaluated with CT imaging studies. Patient with pneumoperitoneum from peritoneal dialysis; some mild ascites but no other abnormal findings were noted. Patient denies any fever, shakes, or chills. Patient with no significant leukocytosis. Patient states that she can do her own peritoneal dialysis in the hospital. However, if her workup is negative she did want to go home. Unfortunately, her troponins were elevated which is not unusual in patients on dialysis. Because of her elevated troponin, we do want to go ahead and ruled her out for significant elevation in her troponins. If there is no significant change then she can probably be discharged on antibiotics and further management as an outpatient with cardiology for further workup as an outpatient. Patient will be admitted for observation. Allergies ketamine Allergy (Severe, Verified 03/19/19 22:45) Anaphylaxis morphine Allergy (Intermediate, Verified 11/28/17 00:51) Anaphylaxis Home Medications: Biotin/Keratin [Biotin Plus Keratin Tablet] 1 tab PO DAILY 05/23/20 Cyanocobalamin (Vitamin B-12) [Vitamin B12] 1 tab PO DAILY 05/23/20 Insulin Degludec [Tresiba] 60 units SQ DAILY 05/23/20 Dulaglutide [Trulicity] 1.5 mg SQ EVERY 7TH DAY 08/26/20 Furosemide 20 mg PO BID 08/26/20 Nebivolol HCl [Bystolic] 2 tab PO DAILY 09/26/20 Iron 18 mg PO DAILY 09/08/21 Amlodipine [Norvasc*] 10 mg PO DAILY #30 tab 09/10/21 Calcitrol [Rocaltrol*] 0.25 mcg PO Q48H #15 cap 09/10/21 Hydrocodone 5/APAP 325 [[place] 5/325*] 1 tab PO Q6H PRN #15 tab 09/10/21 Metoclopramide [Reglan] 5 mg PO TID PRN #30 tab 09/10/21 Pantoprazole [Protonix Tab] 40 mg PO DAILY #30 tab 09/10/21 Sodium Bicarbonate 1,300 mg PO TID #180 tablet 09/10/21 - Past Medical/Surgical History Diabetic: Yes -: Hypertension -: Hyperlipidemia -: IDDM -: Depression -: Peritoneal dialysis -: ESRD -: Appendectomy -: Cholecystectomy -: Bilateral BKAs -: Peritoneal dialysis catheter placement Psychosocial/ Personal History: 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 Mother Medical History: Heart disease, Diabetes, Stroke Notes: - Social History Smoking Status: Former smoker Alcohol use: No CD- Drugs: No Caffeine use: Yes Review of Systems 10-point ROS is otherwise unremarkable Physical Examination - Vital Signs Temperature: 98 F (Vitals reviewed) - Physical Exam General: Alert, In no apparent distress, Oriented x3 HEENT: Atraumatic, PERRLA, Mucous membr. moist/pink, EOMI, Sclerae nonicteric Neck: Supple, 2+ carotid pulse no bruit, No LAD, Without JVD or thyroid abnormality Respiratory: Clear to auscultation bilaterally, Normal air movement Cardiovascular: Regular rate/rhythm, Normal S1 S2, No murmurs Gastrointestinal: Normal bowel sounds, Soft and benign, Non-distended, No tenderness, No rebound, No guarding Musculoskeletal: No clubbing, No swelling, No tenderness, Other (Bilateral below-knee amputation) Integumentary: No rashes Neurological: Normal speech, Normal strength at 5/5 x4 extr (Upper extremity strength is within normal limits as well as hip flexor strength is normal), Sensation intact, Cranial nerves 3-12 intact, Normal affect, Abnormal gait Lymphatics: No axilla or inguinal lymphadenopathy - Studies Laboratory Data (last 24 hrs) 01/08/24 01/08/24 01/08/24 00:03 00:03 00:03 WBC 9.10 Hgb 10.3 L Hct 31.1 L Plt Count 314 PT 13.7 H INR 1.25 Sodium 135 L Potassium 3.8 BUN 47 H Creatinine 8.46 H Glucose 173 H Magnesium 1.9 Total Bilirubin 0.4 AST 5 L ALT < 10 L Alkaline Phosphatase 89 Lipase 26 Assessment & Plan - Problems (Diagnosis) (1) Abdominal pain Current Visit: Yes Status: Acute (2) ESRD on peritoneal dialysis Current Visit: Yes Status: Acute (3) Elevated troponin Current Visit: Yes Status: Acute (4) HTN (hypertension) Current Visit: No Status: Acute Qualifiers: Hypertension type: essential hypertension (5) History of below knee amputation Current Visit: No Status: Acute Qualifiers: Laterality: left Qualified Code(s): Z89.512 - Acquired absence of left leg below knee (6) UTI (urinary tract infection) Current Visit: No Status: Acute Qualifiers: Urinary tract infection type: acute cystitis Hematuria presence: without hematuria Qualified Code(s): N30.00 - Acute cystitis without hematuria (7) Diabetes mellitus Current Visit: No Status: Chronic Qualifiers: Diabetes mellitus type: type 1 Diabetes mellitus complication status: with kidney complications Diabetes mellitus complication detail: with chronic kidney disease Chronic kidney disease stage: stage 4 (severe) Qualified Code(s): E10.22 - Type 1 diabetes mellitus with diabetic chronic kidney disease; N18.4 - Chronic kidney disease, stage 4 (severe) - Plan Plan: 1. Abdominal pain; patient states is related to her UTI. Urine analysis with culture was done as an outpatient. Patient was given ciprofloxacin. Currently, workup here is unremarkable. CT imaging was negative. Plan was for her to continue with antibiotics as an outpatient follow-up with her PCP regarding her abdominal complaints. Abdominal exam is fairly unremarkable. There is no rebound and no guarding. She has no peritoneal signs. No evidence of SBP. 2. Patient with elevated troponin; no prior records of her troponins. Although in the setting of ESRD this is expected. Will go ahead and check serial troponins. If these do not change significantly then patient can continue with outpatient follow-up with her veterans service representative with referral to cardiology. 3. ESRD; patient on peritoneal dialysis; she states she can do her own peritoneal dialysis. She has the bags that where she can do them on her own. Patient is able to provide her own peritoneal dialysis so no need to transfer at this time in the setting of her being on observation patient 4. Metabolic syndrome; patient with hypertension/diabetes/dyslipidemia-patient with neuropathy status post bilateral below-knee amputations. Patient blood pressure and blood sugar stable. Continue to monitor. Awaiting for home medications to be reviewed and placed by nursing staff. Once this is done we will resume her home medications 5. GI DVT prophylaxis Discharge Plan: Home Plan to discharge in: 24 Hours - Advance Directives Does patient have a Living Will: No Does patient have a Durable POA for Healthcare: No - Code Status/Comfort Care Code Status Assessed: Yes Code Status: Full Code Critical Care: No Time Spent Managing PTS Care (In Minutes): 45
[2024-01-08] MEDS ORDERED: WATER FOR INJ,STERILE 10 ML ONE (04:11)
[2024-01-08] MEDS ORDERED: METHYLPREDNISOLONE 40 MG INJ ONE (04:11)
[2024-01-08] MEDS ORDERED: CEFTRIAXONE 1000 MG/VIAL ONE (04:11)
[2024-01-08] MEDS ORDERED: METRONIDAZOLE 500mg IVPB 500 MG/100 ML BAG IV ONE ×2 (04:12→08:55)
[2024-01-08] MEDS: dexAMETHasone 4 MG/ML VIAL IV ONE (05:34)
[2024-01-08] MEDS ORDERED: dexAMETHasone 4 MG/ML VIAL ONE (05:45)
[2024-01-08] MEDS ORDERED: HYDROCODONE/APAP 10/325 TAB ONE ×2 (05:45→13:28)
[2024-01-08] MEDS: HYDROCODONE/APAP 10/325 TAB PO PRN (05:49)
--- NOTE | 2024-01-08 07:21 | P.PN ---
Date of Service: 01/08/24 Subjective: no significant change in admission started with abdominal discomfort, which improved now L CVA / flank tenderness multiorganism grew in urine culture done ~1 week ago ROS: 10 point ROS as noted above, otherwise negative Physical Exam: GEN: Alert, oriented, NAD HEENT: Normal conjunctiva, sclera anicteric CV: Regular rate and rhythm, no edema Pulm: Nonlabored respirations on room air, clear bilaterally ABD: Soft, nontender, nondistended, PD cath without surrounding erythema, nontender, +L CVA/flank tenderness MSK: bilateral BKA Neuro: Normal speech, normal affect vitals reviewed Problem List: UTI, failed outpatient therapy ESRD on peritoneal dialysis NSTEMI, suspect type II Hypertension IDDM2 chronic systolic CHF, HFrEF (EF:25% per patient report) UTI Abdominal Pain Patient reports seeing her nail machine operator earlier this week and was told she had a UTI. Started on ciprofloxacin and reports compliance with medication. Abdominal discomfort worsened and started radiating to back/left flank so she came here. Denies fever/chills. CT abd/pelvis (01/07): pneumoperitoneum likely secondary to peritoneal dialysis, bilateral pleural fluid collections L > R, possible lower left lung atelectasis, small amount of free fluid in pelvis. Anasarca Urinalysis in ED concerning for UTI - +LE, +WBC, +bacteria Given rocephin, IV steroids shortly after admission change to cefepime, continue flagyl patient without abdominal tenderness - no peritoneal signs on exam pain is focused in left flank/back likely due to ascending urinary infection, UA grossly abnormal / +bacteruria obtained culture results - see above multi-organisms will get culture and cell count of peritoneal dialysate - pt states able to do it herself, will check with lab what containers needed ID consult ESRD on peritoneal dialysis Patient reports she can do her own peritoneal dialysis. Has the bags to where she can do them on her own. No need to transfer at this time. CXR with blunted left costophrenic angle and increased opacity in left lower lung could represent pleural fluid/atelectasis Nephrology consulted Creatinine 8.46, BNP > 175k Continue to monitor renal function NSTEMI initial troponin elevated, continue to trend monitor on tele Cardiology consulted Hypertension confirm home meds, restart as appropriate IDDM2 confirm home meds Accu-checks, SSI VTE: heparin sq Code: Full Dispo: Home, ~2-3 days
[2024-01-08] MEDS ORDERED: ASPIRIN EC 81 MG TAB PO ONE (08:54)
[2024-01-08] MEDS ORDERED: HEPARIN 5000 UNIT/ML 1 ML VIAL ONE ×2 (08:55→10:55)
[2024-01-08] MEDS: ASPIRIN EC 81 MG TAB PO SCH (09:00)
[2024-01-08] MEDS: INFLUENZA VACCINE (for 6+ mo) 0.5 ML DOSE IMVAC ONE (09:00)
[2024-01-08] MEDS: HEPARIN 5000 UNIT/ML 1 ML VIAL SQ SCH (09:00)
[2024-01-08 09:14] LABS: Specific Gravity 1.011 (1.005-1.030); Sqamous Epithelial 20-50 /HPF (None Seen); Urine Bacteria 20-50 /HPF (<20); Urine Bilirubin NEGATIVE (Negative); Urine Blood 1+ (Negative); Urine Clarity Extremely Turbid (Clear); Urine Color Light-Orange (Yellow); Urine Culture Reflex Order NOT NEEDED; Urine Glucose 1+ (Negative); Urine Ketones NEGATIVE (Negative); Urine Microscopic Reflex YN ORDER UMIC; Urine Nitrite NEGATIVE (Negative); Urine Protein 2+ (Negative); Urine RBC <5 /HPF (None Seen); Urine Urobilinogen Normal (Normal); Urine WBC >50 /HPF (<5); Urine WBC Clump Many /HPF (None Seen); Urine pH 6.5 (5.0-7.0)
[2024-01-08] MEDS: FENTANYL CITR 100 MCG/2 ML IV ONE (10:29)
[2024-01-08] MEDS: CEFEPIME 1 GM in NA CHLORIDE 0.9% 100 ML IV SCH (14:30)
[2024-01-08] MEDS ORDERED: CEFEPIME 1 GM/VIAL ONE (14:46)
[2024-01-08] MEDS ORDERED: NA CHLORIDE 0.9% 100 ML ONE (14:46)
[2024-01-08] MEDS: HYDROMORPHONE HCL 1 MG/ML INJ IV PRN (16:09)
[2024-01-08] MEDS ORDERED: GLUCAGON 1 MG/VIAL IM PRN (17:02)
[2024-01-08] MEDS ORDERED: D50W 25 GM/50 ML SYRINGE IV PRN (17:02)
--- NOTE | 2024-01-08 18:01 | RAD REPORT ---
EXAM DESCRIPTION: CT - Chest Abd Pelvis Wo Con - 01/08/2024 7:02 am CLINICAL HISTORY: Abdominal distention;Dyspnea COMPARISON: None Available. TECHNIQUE: Contiguous axial images of the chest, abdomen and pelvis were obtained followed by recons truction images.This exam was performed according to our departmental dose-optimization program, whic h includes automated exposure control, adjustment of the mA and/or kV according to patient size and/o r use of iterative reconstruction technique. FINDINGS: There is free air within the abdomen. There is a percutaneous dialysis catheter. There is diffuse atherosclerosis. There is a small amount of free fluid in the pelvis. Stranding of the subcut aneous fat compatible with anasarca. There are bilateral pleural fluid collections, left greater than right. Increased opacity in the left lower lung may represent atelectasis. There are coronary arterial calcifications. The aorta is of normal contour and tapering. There is no pneumothorax. The liver, spleen, pancreas and kidneys are within normal limits. There is no hydronephrosis or renal stones. The gallbladder is unremarkable by CT criteria. Adrenal glands are within normal limits. Aor ta is of normal caliber and tapering. There is no bowel obstruction. There is no stranding of the mes enteric fat to suggest an inflammatory response. The appendix was not visualized. Area of increased a ttenuation at the pericecal level could be related to prior appendectomy. There is no pericecal infla mmation. IMPRESSION: 1. Pneumoperitoneum could be secondary to a percutaneous dialysis catheter. Recommend correlation with patient history. 2. Bilateral pleural fluid collections, left greater than right. Increased opacity in the left lowe r lung may represent atelectasis. 3. Small amount of free fluid in the pelvis. Anasarca. Electronically signed by: Giovanni Rubio MD 01/08/2024 01:07 AM CDT Due to temporary technical issues with the PACS/Fluency reporting system, reports are being signed by the in house radiologists without review as a courtesy to insure prompt reporting. The interpreting radiologist is fully responsible for the content of the report
--- NOTE | 2024-01-08 18:02 | RAD REPORT ---
EXAM DESCRIPTION: RAD - Chest Single View - 01/08/2024 12:43 am CLINICAL HISTORY: ABDOMINAL DISTENTION COMPARISON: None FINDINGS: Cardiac silhouette is within normal limits. Blunted left costophrenic angle and increased opacity in the left lower lung could represent combination of pleural fluid and atelectasis. Other et iologies are not excluded.. There is no acute osseous process visualized. IMPRESSION: Blunted left costophrenic angle and increased opacity in the left lower lung could repre sent combination of pleural fluid and atelectasis. Other etiologies are not excluded. Electronically signed by: Giovanni Rubio MD 01/08/2024 01:03 AM CDT Due to temporary technical issues with the PACS/Fluency reporting system, reports are being signed by the in house radiologists without review as a courtesy to insure prompt reporting. The interpreting radiologist is fully responsible for the content of the report
[2024-01-08] MEDS ORDERED: D10W 125 ML IV PRN (18:12)
[2024-01-08 18:19] VITALS: O2SAT 100
[2024-01-08] MEDS: ATORVASTATIN 40 MG TAB PO SCH (19:54)
[2024-01-08] MEDS: INSULIN REGULAR (HUMAN) 100 UNIT/ML SQ SCH (19:59)
--- NOTE | 2024-01-08 20:09 | CON ---
Date of Consultation: 01/08/2024 The patient was seen and examined at bedside. History Of Present Illness: Ms. Umaña is a 48-year-old female with past medical history significant for history of ESRD, currently on peritoneal dialysis; hypertension; peripheral vascular disease wit h bilateral BKA, presented to the hospital with severe nausea, vomiting, and flank pain that has been going on for about 2 or 3 days prior to admission. She came to the ER because her nausea and vomiti ng was getting worse and she just could not be comfortable anymore with the pain and hence, she came to the hospital. She was recently being treated for urinary tract infection with ciprofloxacin. Her urinalysis grew multiple organisms including Klebsiella oxytoca. However, because of her worsening symptoms, she has been admitted to the hospital for further evaluation. Her troponins are also noted to be elevated. However, she denies any chest pain or shortness of breath. Her PD fluid has been r eported to be clear and denies any cloudy effluent. Past Medical History: Significant for history of hypertension, hyperlipidemia, insulin-dependent jeanne betes, bilateral BKA, appendectomy, cholecystectomy, and PD catheter placement. Family History: Noncontributory. Review of Systems: As per History of Present Illness, Social History: Former smoker. No history of alcohol or drug use at this time reported. Physical Examination: Vital Signs: Showing temperature of 98.4, pulse rate of 95, respiratory rate of 16, and blood pressu re of 137/88. General: She appears in no acute distress. HEENT: Atraumatic head. Lungs: Clear to auscultation. Heart: Auscultation of the heart reveals regular rate and rhythm. Abdomen: Soft and nontender. PD catheter was noted to be in place without any evidence of rebound o r guarding. She had the left-sided CVA tenderness and bilateral BKAs were noted. Laboratory Data: Labs consistent with ESRD. Troponin was noted to be high, but trending down. CBC showing stable hemoglobin, hematocrit, and platelet count. UA is consistent with infection, however, also has a number of squamous epithelial cells. Her CT of the chest and abdomen was done as well. Current Medications: Have been reviewed. Impression: 1.End-stage renal disease, on peritoneal dialysis. The patient will continue to do her manual excha nges here since there is no PD nurses available. The patient's PD fluid will be sent for cell count and culture. However, there are no clinical signs of infection. 2.Left flank tenderness associated with nausea and vomiting, possible pyelonephritis. The patient's urine culture from most recently showing evidence of Klebsiella oxytoca along with E coli and Serrat ia liquefaciens on the culture reports. Culture reports have been forwarded to the primary attending as well. Currently receiving antibiotics with cefepime 1 g daily. Continue the same and monitor cl osely. Plan: Overall, the patient will continue to do manual PD exchanges while she remains hospitalized. We will do a trial of IV antibiotics with cefepime and monitor her closely. Advance diet as tolerate d and will follow up. VV/MODL Voice ID: [id number] Report ID: [id number]
[2024-01-08] MEDS: PROMETHAZINE 25 MG TABLET PO PRN (22:20)
[2024-01-09] MEDS: NA CHLORIDE 0.9% 50 ML ONE (00:37)
[2024-01-09] MEDS: PROMETHAZINE INJ 25 MG/ML AMP IV ONE (00:40)
[2024-01-09 00:53] LABS: Appearance CLEAR (CLEAR); Body Fluid Source PERITONEAL; Body Fluid WBC 46 /mm^3; Color of Supernate Not Xanthochromic (Not Xantho); Color of fluid Colorless (COLORLESS); Fluid Total Cells Count 100; Tube # SINGLE
[2024-01-09 00:54] LABS: Body Fluid Lymphocytes 10 %
[2024-01-09 04:17] VITALS: BMI 34.5
[2024-01-09 05:22] LABS: Absolute Basophils 0.1 K/uL (0-0.5); Absolute Lymphocytes (CBC) 0.5 K/uL (0.7-4.9); Absolute Monocytes 0.5 K/uL (0.1-1.3); Absolute Neutrophil 8.4 K/uL (1.8-8.0); Basophils % 0.6 % (0-1.3); Hematocrit 30.1 % (36.0-45.0); Hemoglobin 9.8 g/dL (12.0-15.0); Lymphocytes % 5.5 % (15.3-44.8); MCH 30.4 pg (27.0-35.0); MCHC 32.6 g/dL (32.0-36.0); MCV 93.2 fL (80-100); MPV 8.7 fL (7.6-11.3); Monocytes % 5.1 % (3.3-12.3); Neutrophils % 88.8 % (41.7-73.7); Platelets 345 thou/uL (152-406); RBC Red Blood Cell Count 3.22 M/uL (3.86-4.86)
[2024-01-09 05:42] LABS: Albumin 2.3 g/dL (3.4-5.0); Albumin/Globulin Ratio 0.5 (1.1-1.8); Alkaline Phosphatase 88 U/L (45-117); Anion Gap 15.8 mEq/L (5.0-15.0); BUN Blood Urea Nitrogen 58 mg/dL (7-18); Bicarbonate 23 mEq/L (21-32); Bilirubin Total 0.5 mg/dL (0.2-1.0); Globulin 4.3 g/dL (2.3-3.5); Glomerular Filtration Rate 5 ml/min (=/>90); Glucose Level 294 mg/dL (74-106); Magnesium 1.8 mg/dL (1.6-2.4); Potassium 4.8 mEq/L (3.5-5.1); Protein, Total 6.6 g/dL (6.4-8.2); Sodium Level 130 mEq/L (136-145)
[2024-01-09 05:46] LABS: ALT/SGPT < 10 U/L (13-56); AST/SGOT < 4 U/L (15-37)
[2024-01-09] MEDS ORDERED: HEPA 1000U/500MLS 1,000 UNIT/500 ML BAG IV ONE (06:53)
[2024-01-09] MEDS ORDERED: LIDOCAINE 1% 20 ML MDV ONE (06:54)
--- NOTE | 2024-01-09 08:19 | P.CNS ---
Date of Consult: 01/09/24 Reason for Consult: UTI, multiple organisms Chief Complaint: Abdominal pain; ESRD on peritoneal dialysis; elevated troponin History of Present Illness: Patient is a 48 year old female with a past medical history of ESRD on peritoneal dialysis, hypertension, hyperlipidemia, diabetes mellitus, bilateral BKA who presented to the ED with complaints of abdominal and left flank pain, nausea and vomiting. She was Of note, she was recently seen by her manufacturing engineer chief and was prescribed Ciprofloxacin PO for urinary tract infection as outpatient without improvement in symptoms which led her to present to the emergency department. Urine cutlures from outside lab showing 3 different organisms. She was started on Cefepime IV and infectious disease was consulted. Allergies ketamine Allergy (Severe, Verified 03/19/19 22:45) Anaphylaxis morphine Allergy (Intermediate, Verified 11/28/17 00:51) Anaphylaxis Home medications list reviewed: Yes Home Medications: Biotin/Keratin [Biotin Plus Keratin Tablet] 1 tab PO DAILY 05/23/20 Cyanocobalamin (Vitamin B-12) [Vitamin B12] 1 tab PO DAILY 05/23/20 Insulin Degludec [Tresiba] 60 units SQ DAILY 05/23/20 Dulaglutide [Trulicity] 1.5 mg SQ EVERY 7TH DAY 08/26/20 Furosemide 20 mg PO BID 08/26/20 Nebivolol HCl [Bystolic] 2 tab PO DAILY 09/26/20 Iron 18 mg PO DAILY 09/08/21 Amlodipine [Norvasc*] 10 mg PO DAILY #30 tab 09/10/21 Calcitrol [Rocaltrol*] 0.25 mcg PO Q48H #15 cap 09/10/21 Hydrocodone 5/APAP 325 [Force 5/325*] 1 tab PO Q6H PRN #15 tab 09/10/21 Metoclopramide [Reglan] 5 mg PO TID PRN #30 tab 09/10/21 Pantoprazole [Protonix Tab] 40 mg PO DAILY #30 tab 09/10/21 Sodium Bicarbonate 1,300 mg PO TID #180 tablet 09/10/21 - Past Medical/Surgical History Diabetic: Yes -: Hypertension -: Hyperlipidemia -: IDDM -: Depression -: Peritoneal dialysis -: ESRD -: Appendectomy -: Cholecystectomy -: Bilateral BKAs -: Peritoneal dialysis catheter placement Psychosocial/ Personal History: 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 Mother Medical History: Heart disease, Diabetes, Stroke Notes: - Social History Smoking Status: Never smoker Alcohol use: No CD- Drugs: No Caffeine use: Yes Review of Systems 10-point ROS is otherwise unremarkable Gastrointestinal: Nausea Musculoskeletal: Other (bilateral BKA) Physical Examination Temp Pulse Resp BP Pulse Ox 96.9 F 74 16 117/68 98 01/09/24 04:00 01/09/24 04:00 01/09/24 04:29 01/09/24 04:00 01/09/24 04:29 General: Alert, In no apparent distress, Oriented x3 HEENT: Atraumatic, Normocephalic Respiratory: Clear to auscultation bilaterally, Normal air movement Cardiovascular: Regular rate/rhythm Gastrointestinal: Soft and benign, Other (peritoneal dialysis catheter noted. Mild left flank tenderness) Musculoskeletal: Other (bilateral BKA) Integumentary: No rashes Neurological: Normal speech, Normal tone, Normal affect Laboratory Data - Reviewed Microbiology Data - Reviewed Imagings Data: - CT abdomen pelvis 01/06: " 1. Pneumoperitoneum could be secondary to a percutaneous dialysis catheter. Recommend correlation with patient history. 2. Bilateral pleural fluid collections, left greater than right. Increased opacity in the left lower lung may represent atelectasis. 3. Small amount of free fluid in the pelvis. Anasarca" Conclusions/Impression: Problem List Urinary Tract Infection ESRD on Peritoneal Dialysis Diabetes Mellitus type II NSTEMI Chronic Systolic Congestive Heart Failure Hypertension Urinary Tract Infection - failed outpatient antibiotic on ciprofloxacin - Urine culture obtained from outside laboratory on 01/02: Klebsiella oxytoca, Escherichia coli and Serratia liquefaciens - blood cultures 01/08: pending - Currently on Cefepime 1g IV Q24H (started 01/07) - CT chest abdomen pelvis 01/06: "1. Pneumoperitoneum could be secondary to a percutaneous dialysis catheter. Recommend correlation with patient history. 2. Bilateral pleural fluid collections, left greater than right. Increased opacity in the left lower lung may represent atelectasis. 3. Small amount of free fluid in the pelvis. Anasarca." The liver, spleen, pancreas and kidneys are within normal limits. There is no hydronephrosis or renal stones - Peritoneal fluid analysis: not suggestive of infection. Peritoneal culture: no growth to date - Afebrile Recommendations - UTI: Continue Cefepime for 7-10 days. Follow up with blood culture results. - patient has left upper extremity midline - monitor CBC and BMP - strict blood glucose control - continue supportive care Case discussed with Jimy Carroll
--- NOTE | 2024-01-09 08:19 | P.PN ---
Date of Service: 01/09/24 Subjective: reported dyspnea overnight, woke up gasping for air and improved with oxygen supplementation - 2 episodes, feeling better now that she has been awake for a bit dyspnea worsened when laying flat, states she sleeps sitting up / reclined. left back/flank pain improving afebrile ROS: 10 point ROS as noted above, otherwise negative Physical Exam: GEN: Alert, oriented, sitting up in bed HEENT: Normal conjunctiva, sclera anicteric CV: Regular rate and rhythm, trace to 1+ lower extremity edema Pulm: Nonlabored respirations on room air, clear bilaterally ABD: Soft, nontender, PD cath without surrounding erythema, +L CVA/flank tenderness MSK: bilateral BKA Neuro: Normal speech, normal affect vitals reviewed Problem List: UTI, failed outpatient therapy; multiple organisms - Klebsiella Oxytoca Raoultella ornithinolytica, E. coli, Serratia Liquefaciens (resistant to Carbapenem) ESRD on peritoneal dialysis mild-moderate Bilateral Pleural effusions L > R chronic systolic CHF, HFrEF (EF:25% per patient report) NSTEMI, suspect type II Hypertension IDDM2 UTI, failed outpatient therapy; multiple organisms - Klebsiella Oxytoca Raoultella ornithinolytica, E. coli, Serratia Liquefaciens (resistant to Carbapenem) Patient reports seeing her skid strapper earlier this week and was told she had a UTI. Started Ciprofloxacin, felt some improvement, then started to have pain back/left flank so she came here. Denies fever/chills. CT abd/pelvis (01/07): pneumoperitoneum likely secondary to peritoneal dialysis, bilateral pleural fluid collections L > R, possible lower left lung atelectasis, small amount of free fluid in pelvis. Anasarca patient without abdominal tenderness - no peritoneal signs on exam pain is focused in left flank/back likely due to ascending urinary infection, UA grossly abnormal / +bacteruria Urine culture from outside facility with multiple organisms - Klebsiella Oxytoca Raoultella ornithinolytica, E. coli, Serratia Liquefaciens (resistant to Carbapenem) culture sensitivities can be seen on progress note from 01/07 Given rocephin, IV steroids shortly after admission continue cefepime / flagyl (01/07-) ID consulted culture and cell count of peritoneal dialysate - unremarkable Follow blood cultures ESRD on peritoneal dialysis mild-moderate Bilateral Pleural effusions L > R chronic systolic CHF, HFrEF (EF:25% per patient report) Patient reports she can do her own peritoneal dialysis. Has the bags to where she can do them on her own. No need to transfer at this time. CXR with blunted left costophrenic angle and increased opacity in left lower lung could represent pleural fluid/atelectasis Nephrology consulted Creatinine 8.46, BNP > 175k on admission Continue to monitor renal function some dyspnea reported overnight, improved with oxygen supplementation suspect multifactorial etiology likely secondary to pleural fluid, +some component of undiagnosed sleep apnea consider sleep study in near future as outpatient NSTEMI, suspect type II troponins elevated x3 but trended flat likely demand ischemia in setting of ESRD monitor on tele Cardiology consulted Hypertension confirm home meds Hold antihypertensives given low-normal BP IDDM2 confirm home meds Accu-checks, SSI VTE: heparin sq Code: Full Dispo: Home, ~1-2 days
[2024-01-09 08:41] LABS: Specific Gravity 1.014 (1.005-1.030); Urine Bilirubin NEGATIVE (Negative); Urine Blood 2+ (Negative); Urine Clarity Extremely Turbid (Clear); Urine Color Light-Orange (Yellow); Urine Glucose 3+ (Negative); Urine Ketones NEGATIVE (Negative); Urine Microscopic Reflex YN NO UMIC; Urine Nitrite NEGATIVE (Negative); Urine Protein 2+ (Negative); Urine Urobilinogen Normal (Normal); Urine pH 5.5 (5.0-7.0)
[2024-01-09] MEDS ORDERED: CEFTRIAXONE 1,000 MG in NA CHLORIDE 0.9% 50 ML IVPB SCH (09:00)
[2024-01-09 11:35] LABS: Differential Total Cells Count 100; Lymphocytes 6 % (15-42); Monocytes 4 % (0-10); Segmented Neutrophils 90 % (40-80)
[2024-01-09 11:45] LABS: Blood Morphology Comment NOT SEEN (NOT SEEN); Hypersegmented Neutrophils 2+; Platelet Estimate ADEQ
--- NOTE | 2024-01-09 13:43 | EKG ---
Test Date: 2024-01-08 Test Time: 01:56:32 Fire Chief Deputy: BARBARA MEASUREMENT RESULTS: Intervals: Rate: 76 GA: 128 QRSD: 108 QT: 428 QTc: 481 Mandan: P: 35 GA: 128 QRS: 19 T: -58 INTERPRETIVE STATEMENTS: Normal sinus rhythm Cannot rule out Anteroseptal infarct, age undetermined Abnormal ECG Compared to ECG 02/26/2022 18:14:43 Myocardial infarct finding now present T-wave abnormality no longer present Possible ischemia no longer present Prolonged QT interval no longer present Electronically Signed On 01-09-24 13:37:18 CDT by Angel Montelongo
--- NOTE | 2024-01-09 14:18 | P.PN ---
Date of Service: 01/09/24 Vital Signs Temp Pulse Resp BP Pulse Ox 96.5 F L 78 16 141/78 H 100 01/09/24 12:00 01/09/24 12:00 01/09/24 12:00 01/09/24 12:00 01/09/24 12:00 Medications Acetaminophen (Acetaminophen 500 Mg Tab) 500 mg PO Q6H PRN PRN Reason: Pain scale 2-4 (Mild)/Fever Hydrocodone Bitart/Acetaminophen (Hydrocodone/Apap 10/325 Tab) 1 tab PO Q6H PRN PRN Reason: Pain scale 5-7 (Moderate) Last Admin: 01/08/24 13:37 Dose: 1 tab Aspirin (Aspirin Ec 81 Mg Tab) 162 mg PO DAILY [facility] Last Admin: 01/09/24 08:32 Dose: 162 mg Atorvastatin Calcium (Atorvastatin 40 Mg Tab) 40 mg PO BEDTIME SONY Last Admin: 01/08/24 19:54 Dose: 40 mg Glucagon (Glucagon 1 Mg/Vial) 1 mg IM 1X PRN PRN Reason: HYPOGLYCEMIA Heparin Sodium (Porcine) (Heparin 5000 Unit/Ml 1 Ml Vial) 5,000 unit SQ Q12HR SONY Last Admin: 01/09/24 08:33 Dose: 5,000 unit Hydromorphone HCl (Hydromorphone Hcl 1 Mg/Ml Inj) 1 mg IV Q6H PRN PRN Reason: Pain scale 8-10 (Severe) Last Admin: 01/09/24 10:08 Dose: 1 mg Metronidazole/Sodium Chloride (Flagyl 500mg/100 Ml Iv Premix) 500 mg in 100 mls @ 200 mls/hr IV Q8HR SONY; Protocol Last Admin: 01/09/24 08:33 Dose: 100 mls Cefepime HCl 1 gm/ Sodium (Chloride) 100 mls @ 200 mls/hr IV DAILY [facility]; Protocol Last Admin: 01/09/24 08:32 Dose: 100 mls Dextrose (Dextrose 10% Water Iv Soln.) 125 mls @ 0 mls/hr IV PRN PRN; Protocol PRN Reason: HYPOGLYCEMIA Insulin Human Regular (Insulin Regular (Human) 100 Unit/Ml) 0 unit SQ ACHS SONY; Protocol Last Admin: 01/09/24 11:44 Dose: 4 unit Ondansetron HCl (Ondansetron 4 Mg/2 Ml Vial) 4 mg IV Q8H PRN PRN Reason: NAUSEA / VOMITING Promethazine HCl (Promethazine 25 Mg Tablet) 25 mg PO Q8H PRN PRN Reason: NAUSEA / VOMITING Last Admin: 01/09/24 10:08 Dose: 25 mg Lab Results (last 24 hrs) 01/09/24 11:10: POC Glucose 274 H 01/09/24 08:18: Urine Color Light-orange, Urine Clarity Extremely turbid H, Urine pH 5.5, Ur Specific [place] 1.014, Glucose (UA)(Auto) 3+ H, Urine Ketones Negative, Urine Blood 2+ H, Urine Nitrite Negative, Urine Bilirubin Negative, Urine Urobilinogen Normal, Ur Leukocyte Esterase 500 H, Urine Total Protein 2+ H 01/09/24 08:09: POC Glucose 218 H 01/09/24 05:10: Sodium 130 L, Potassium 4.8, Chloride 96 L, Carbon Dioxide 23, Anion Gap 15.8 H, BUN 58 H, Creatinine 8.96 H, Est GFR (CKD-EPI) 5 L, Glucose 294 H, Calcium 7.2 L, Magnesium 1.8, Total Bilirubin 0.5, AST < 4 L, ALT < 10 L, Alkaline Phosphatase 88, Serum Total Protein 6.6, Albumin 2.3 L, Globulin 4.3 H, Albumin/Globulin Ratio 0.5 L 01/09/24 05:10: WBC 9.40, RBC 3.22 L, Hgb 9.8 L, Hct 30.1 L, MCV 93.2, MCH 30.4, MCHC 32.6, RDW 16.0 H, Plt Count 345, MPV 8.7, Neutrophils % 88.8 H, Lymphocytes % 5.5 L, Monocytes % 5.1, Eosinophils % 0.0, Basophils % 0.6, Absolute Neutrophils 8.4 H, Segmented Neutrophils 90 H, Absolute Lymphocytes 0.5 L, Lymphocytes 6 L, Monocytes 4, Absolute Monocytes 0.5, Absolute Eosinophils 0.0, Absolute Basophils 0.1, Hypersegmented Neuts 2+, Platelet Estimate Adeq, Morphology Comment Not seen 01/08/24 22:30: Fluid Source Peritoneal, Fluid Color Colorless, Fluid Appearance Clear, Fld Supernatant Color Not xanthochromic, Fluid WBC 46, Fluid RBC 7, Fluid Neutrophils 41, Fluid Lymphocytes 10, Fluid Eosinophils 1, Fluid Mononuclear Cell 48 01/08/24 19:53: POC Glucose 297 H 01/08/24 16:02: POC Glucose 256 H 01/08/24 15:27: Troponin I High Sens 72.5 H* Microbiology Results 01/08/24 22:30 Body Fluid - Peritoneal Fluid Gram Stain - Final 01/08/24 22:30 Body Fluid - Peritoneal Fluid Culture & Sensitivity - Preliminary No growth. Assessment/ Plan: Nephrology Progress Note +BELTRAN +Orthopnea No Chest Pain No Acute Events Overnight Vital Signs, Medications, Blood Work, and Imaging reviewed in the chart NAD. NCAT. MMM. Neck Supple. Normal Respiratory Effort. RRR. Abd ND. No C/C. Hip Edema 1+. No Rash. AAO. Normal Speech. Assessment & Plan ESRD on PD Hyponatremia -PD as ordered -Colace BID HTN with CKD/ CHF -Monitor BP Systolic CHF, A/C BL Pleural Effusion -Low sodium diet -Increase UF with PD -Start Bumex BID DM II with CKD, Polyneuropathy -RISS Hypoalbuminemia -Encourage protein intake Anemia in CKD -Retacrit X1 CKD MBD -Start Renvela and Ergo Acute Infective Cystitis -Continue Abx -ID following Case reviewed with Dr. Chapman EXAM DESCRIPTION: CT - Chest Abd Pelvis Wo Con - 01/08/2024 7:02 am CLINICAL HISTORY: Abdominal distention;Dyspnea COMPARISON: None Available. TECHNIQUE: Contiguous axial images of the chest, abdomen and pelvis were obtained followed by reconstruction images.This exam was performed according to our departmental dose-optimization program, which includes automated exposure control, adjustment of the mA and/or kV according to patient size and/or use of iterative reconstruction technique. FINDINGS: There is free air within the abdomen. There is a percutaneous dialysis catheter. There is diffuse atherosclerosis. There is a small amount of free fluid in the pelvis. Stranding of the subcutaneous fat compatible with anasarca. There are bilateral pleural fluid collections, left greater than right. Increased opacity in the left lower lung may represent atelectasis. There are coronary arterial calcifications. The aorta is of normal contour and tapering. There is no pneumothorax. The liver, spleen, pancreas and kidneys are within normal limits. There is no hydronephrosis or renal stones. The gallbladder is unremarkable by CT criteria. Adrenal glands are within normal limits. Aorta is of normal caliber and tapering. There is no bowel obstruction. There is no stranding of the mesenteric fat to suggest an inflammatory response. The appendix was not visualized. Area of increased attenuation at the pericecal level could be related to prior appendectomy. There is no pericecal inflammation. IMPRESSION: 1. Pneumoperitoneum could be secondary to a percutaneous dialysis catheter. Recommend correlation with patient history. 2. Bilateral pleural fluid collections, left greater than right. Increased opacity in the left lower lung may represent atelectasis. 3. Small amount of free fluid in the pelvis. Anasarca. EXAM DESCRIPTION: RAD - Chest Single View - 01/08/2024 12:43 am CLINICAL HISTORY: ABDOMINAL DISTENTION COMPARISON: None FINDINGS: Cardiac silhouette is within normal limits. Blunted left costophrenic angle and increased opacity in the left lower lung could represent combination of pleural fluid and atelectasis. Other etiologies are not excluded.. There is no acute osseous process visualized. IMPRESSION: Blunted left costophrenic angle and increased opacity in the left lower lung
[2024-01-09] MEDS: EPOETIN ALFA-EPBX 10,000 UNIT/ML VIAL SQ ONE (15:57)
[2024-01-09] MEDS: BUMETANIDE 1 MG TABLET PO SCH (15:57)
[2024-01-09] MEDS: SEVELAMER CARBONATE 800 MG TABLET PO SCH (15:57)
--- NOTE | 2024-01-09 18:24 | CON ---
Date of Consultation: 01/09/2024 Reason For Consultation: Elevated troponin. History Of Present Illness: A 48-year-old female comes in with flank discomfort, which was diagnosed with urinary tract infection, recently started on ciprofloxacin and then her discomfort became worse and started having nausea and vomiting and severe left flank pain and lower back pain, found to have pyelonephritis. Denies having any chest pain or shortness of breath. Upon evaluation, troponin was slightly elevated, so I was consulted. The patient apparently had a heart catheterization end of last year in September and she claimed that the heart is well vascularized. She has history of page nary artery disease, status post PCI to heart attack in the past and it was patent as per her report. No active chest pain. Past Medical History: Hypertension, dyslipidemia, diabetes, coronary artery disease, end-stage renal disease, severe anxiety disorder. She bites her nails. Medications: Refer to reconciliation sheet for detailed list. Allergies: KETAMINE AND MORPHINE. Family History: No premature coronary artery disease or cancer. Social History: She is an ex-smoker. Does not smoke or drink or use any drugs. Review of Systems: All systems reviewed, they were negative except mentioned in HPI. Physical Examination: Vital Signs: Reviewed. Head and Neck: Pupils are equal, reactive to light. Intact eye movements. No JVD. No cervical lym phadenopathy. Neck is supple. Thyroid is not enlarged. Lungs: Clear to auscultation bilaterally. No rhonchi, rales, or crackles. No accessory muscle use. Heart: Regular rate and rhythm. No extra sounds. Abdomen: Soft, nontender. Bowel sounds positive. No organomegaly. No masses or hernia. No rigidi ty or rebound. Extremities: No edema, clubbing, or cyanosis. Intact pulses. Skin: No rash. Neurologic: Alert, awake, and oriented x3. No focal deficits appreciated. Investigations: Troponin peaked at 144 and now it is 72, BUN is 58, creatinine 8.96. Assessment/recommendations: 1.Elevated troponin. This is demand ischemia. The patient came in septic and she had a coronary an giogram as per report recently that showed well-vascularized heart. I recommend no further workup on this. Obtain an echo during this hospital stay and continue her chronic medication for coronary art monica disease including baby aspirin and statin. 2.Dyslipidemia. Continue statin. 3.End-stage renal disease, on hemodialysis with pyelonephritis on broad-spectrum antibiotics. /CHECO Voice ID: [id number] Report ID: [id number]
[2024-01-09] MEDS: HYDROMORPHONE HCL 1 MG/ML INJ IV PRN (20:15)
[2024-01-09] MEDS: DOCUSATE NA 100 MG CAP PO SCH (21:00)
--- NOTE | 2024-01-09 21:24 | RAD REPORT ---
EXAM DESCRIPTION: RAD - Lumbar Spine 3 Views - 01/09/2024 9:16 pm CLINICAL HISTORY: Back pain FINDINGS: No fracture or dislocation is seen. Vascular calcifications Moderate spondylosis L5-S1 consisting of disc space narrowing and osteophytes.
[2024-01-10 03:59] LABS: Absolute Eosinophils 0.2 K/uL (0-0.5); Absolute Lymphocytes (CBC) 1.2 K/uL (0.7-4.9); Absolute Monocytes 0.6 K/uL (0.1-1.3); Absolute Neutrophil 7.2 K/uL (1.8-8.0); Basophils % 0.4 % (0-1.3); Eosinophils % 1.8 % (0-4.4); Hematocrit 28.3 % (36.0-45.0); Hemoglobin 9.6 g/dL (12.0-15.0); Lymphocytes % 13.3 % (15.3-44.8); MCH 31.1 pg (27.0-35.0); MCHC 33.8 g/dL (32.0-36.0); MPV 8.7 fL (7.6-11.3); Monocytes % 6.9 % (3.3-12.3); Neutrophils % 77.6 % (41.7-73.7); Nucleated Red Blood Cells % 0.1 % (0-0); Platelets 317 thou/uL (152-406); RBC Red Blood Cell Count 3.08 M/uL (3.86-4.86); Red Cell Distribution Width 16.5 % (12.1-15.2)
[2024-01-10 04:55] LABS: Albumin 2.3 g/dL (3.4-5.0); Albumin/Globulin Ratio 0.6 (1.1-1.8); Alkaline Phosphatase 89 U/L (45-117); Anion Gap 14.2 mEq/L (5.0-15.0); BUN Blood Urea Nitrogen 64 mg/dL (7-18); Bicarbonate 24 mEq/L (21-32); Bilirubin Total 0.3 mg/dL (0.2-1.0); Globulin 4.1 g/dL (2.3-3.5); Glomerular Filtration Rate 5 ml/min (=/>90); Glucose Level 247 mg/dL (74-106); Magnesium 1.9 mg/dL (1.6-2.4); Phosphorus 7.4 mg/dL (2.5-4.9); Potassium 4.2 mEq/L (3.5-5.1); Protein, Total 6.4 g/dL (6.4-8.2); Sodium Level 132 mEq/L (136-145)
[2024-01-10 04:56] LABS: ALT/SGPT < 10 U/L (13-56); AST/SGOT < 4 U/L (15-37); NT PRO-BNP > 175000 pg/mL (<125)
[2024-01-10] MEDS: MULTIVITAMINS,THERAPEUT 1 TAB PO SCH (08:29)
[2024-01-10] MEDS: DRISDOL (VITAMIN D=ERGOCALCIFEROL) 50000 UNIT CAP PO SCH (08:29)
--- NOTE | 2024-01-10 09:18 | P.PN ---
Date of Service: 01/10/24 INFECTIOUS DISEASE PROGRESS NOTE Chief Complaint: Abdominal pain; ESRD on peritoneal dialysis; elevated troponin Subjective: No acute events overnight. In no apparent distress. + nausea improvement in left back/flank pain. Physical Examination Temp Pulse Resp BP Pulse Ox 96.8 F 67 16 103/61 95 01/10/24 08:00 01/10/24 08:29 01/10/24 08:07 01/10/24 08:00 01/10/24 08:07 General: Alert, In no apparent distress, Oriented x3 HEENT: Atraumatic, Normocephalic Respiratory: Clear to auscultation bilaterally, Normal air movement Cardiovascular: Regular rate/rhythm Gastrointestinal: Ascites. non-tender. Normoactive bowel sounds. Peritoneal dialysis catheter. Musculoskeletal: Bilateral BKA. Integumentary: No rashes Neurological: Normal speech, Normal tone, Normal affect Laboratory Data - Reviewed Microbiology Data - Reviewed Imagings Data: - CT abdomen pelvis 01/06: " 1. Pneumoperitoneum could be secondary to a percutaneous dialysis catheter. Recommend correlation with patient history. 2. Bilateral pleural fluid collections, left greater than right. Increased opacity in the left lower lung may represent atelectasis. 3. Small amount of free fluid in the pelvis. Anasarca" Medications List: Reviewed Assessment and Plan Problem List Urinary Tract Infection ESRD on Peritoneal Dialysis Diabetes Mellitus type II NSTEMI Chronic Systolic Congestive Heart Failure Hypertension Acute Cystitis - failed outpatient antibiotic on ciprofloxacin - Urine culture obtained from outside laboratory on 01/02: Klebsiella oxytoca, Escherichia coli and Serratia liquefaciens - blood cultures 01/08: no growth 24 hours - Currently on Cefepime 1g IV Q24H (started 01/07) - CT chest abdomen pelvis 01/06: "1. Pneumoperitoneum could be secondary to a percutaneous dialysis catheter. Recommend correlation with patient history. 2. Bilateral pleural fluid collections, left greater than right. Increased opacity in the left lower lung may represent atelectasis. 3. Small amount of free fluid in the pelvis. Anasarca." The liver, spleen, pancreas and kidneys are within normal limits. There is no hydronephrosis or renal stones. - Peritoneal fluid analysis: not suggestive of infection. No peritoneal signs. Peritoneal culture: no growth to date - Afebrile Recommendations - UTI: Continue Cefepime for 7 days (01/07-01/14). - patient has left upper extremity midline - monitor CBC and BMP - strict blood glucose control - renally dose medications- ESRD peritoneal dialysis. - continue supportive care Case discussed with Jimy Carroll
--- NOTE | 2024-01-10 16:36 | PN ---
Date of Progress Note: 01/10/2024 Subjective: Seen by bedside. Doing well clinically. No chest pain. Review of Systems: No chest pain, shortness of breath, orthopnea, or cough. No nausea, vomiting, or diarrhea. She has pain of her lower back and flank area. Otherwise, no other complaints. All other systems were revie wed, they are negative. Objective: Vital Signs: Reviewed. Head and Neck: Pupils are equal, reactive to light. Intact eye movements. No JVD. No cervical lym phadenopathy. Neck is supple. Thyroid is not enlarged. Lungs: Clear to auscultation bilaterally. No rhonchi, wheezing, or crackles. No accessory muscle u se. Heart: Regular rate and rhythm. No extra sounds. Abdomen: Soft, nontender. Bowel sounds positive. No organomegaly. No masses or hernia. No rigidi ty or rebound. Extremities: No edema, clubbing, or cyanosis. Intact pulses. Skin: No rash. No nodule. Neurological: Alert, awake, oriented x3. No acute focal deficits appreciated. Lymph Nodes: No cervical or axillary lymphadenopathy. Investigations: BUN 64, creatinine 8.9, hemoglobin is 9.6. Assessment And Recommendations: 1.Elevated troponin. This is likely demand ischemia. Please obtain echocardiogram and further asse ss for any wall motion abnormalities. Patient does not have any chest pain. Had recent heart cathet erization that was negative as by report. 2.Coronary artery disease, but no active chest pain. Monitor. Continue aspirin and statin. 3.Dyslipidemia. Continue statin. 4.Pyelonephritis, on proper antibiotics. SR/MODL Voice ID: [id number] Report ID: [id number]
--- NOTE | 2024-01-10 16:57 | P.PN ---
Subjective Date of Service: 01/10/24 Chief Complaint: Abdominal pain; ESRD on peritoneal dialysis; elevated troponin Patient complaining of intermittent low back pain. No recorded fever. Physical Examination - Vital Signs Temperature: 97.6 F Blood Pressure: 133/88 Pulse: 77 Respirations: 20 Pulse Ox (%): 95 - Studies Microbiology Data (last 24 hrs): 01/09/24 09:35 Blood - Blood Anaerobic Blood Culture - Final 01/08/24 22:30 Body Fluid - Peritoneal Fluid Gram Stain - Final Assessment And Plan - Plan Physical Exam: GEN: Alert, oriented, NAD. CV: Regular rate and rhythm, trace to 1+ lower extremity edema Pulm: clear bilaterally, adequate breath sounds ABD: Soft, nontender, PD cath without surrounding erythema, +L CVA/flank tenderness MSK: bilateral BKA Neuro: Normal speech, normal affect vitals reviewed Problem List: UTI, failed outpatient therapy; multiple organisms - Klebsiella Oxytoca Raoultella ornithinolytica, E. coli, Serratia Liquefaciens (resistant to Carbapenem) ESRD on peritoneal dialysis mild-moderate Bilateral Pleural effusions L > R chronic systolic CHF, HFrEF (EF:25% per patient report) NSTEMI, suspect type II Hypertension IDDM2 UTI, failed outpatient therapy multiple organisms - Klebsiella Oxytoca Raoultella ornithinolytica, E. coli, Serratia Liquefaciens (resistant to Carbapenem) CT abd/pelvis (01/07): pneumoperitoneum likely secondary to peritoneal dialysis, bilateral pleural fluid collections L > R, possible lower left lung atelectasis, small amount of free fluid in pelvis. Anasarca patient without abdominal tenderness - no peritoneal signs on exam pain is focused in left flank/back likely due to ascending urinary infection, UA grossly abnormal / +bacteruria Urine culture from outside facility with multiple organisms - Klebsiella Oxytoca Raoultella ornithinolytica, E. coli, Serratia Liquefaciens (resistant to Carbapenem) Given rocephin, IV steroids shortly after admission. IV Rocephin transition to IV cefepime. Peritoneal fluid culture is growing coagulase positive staph, but peritoneal fluid cell count is unremarkable. Blood culture shows no growth to date. Continue cefepime / flagyl (01/07-) Add zyvox Infectious disease input appreciated. culture and cell count of peritoneal dialysate - unremarkable Follow cultures ESRD on peritoneal dialysis mild-moderate Bilateral Pleural effusions L > R chronic systolic CHF, HFrEF (EF:25% per patient report) CXR with blunted left costophrenic angle and increased opacity in left lower lung could represent pleural fluid/atelectasis Nephrology is following. Patient is undergoing routine peritoneal dialysis Continue to monitor renal function NSTEMI, suspect type II troponins elevated x3 but trended flat likely demand ischemia in setting of ESRD Cardiology input appreciated. Hypertension Hold antihypertensives given low-normal BP IDDM2 Blood glucose readings are within acceptable range. Accu-checks, SSI VTE: heparin sq Code: Full Dispo: Home.
--- NOTE | 2024-01-10 20:34 | P.PN ---
Date of Service: 01/10/24 Vital Signs Temp Pulse Resp BP Pulse Ox 97.6 F 77 18 133/88 96 01/10/24 16:59 01/10/24 16:59 01/10/24 20:18 01/10/24 16:59 01/10/24 20:18 Medications Acetaminophen (Acetaminophen 500 Mg Tab) 500 mg PO Q6H PRN PRN Reason: Pain scale 2-4 (Mild)/Fever Hydrocodone Bitart/Acetaminophen (Hydrocodone/Apap 10/325 Tab) 1 tab PO Q6H PRN PRN Reason: Pain scale 5-7 (Moderate) Last Admin: 01/08/24 13:37 Dose: 1 tab Aspirin (Aspirin Ec 81 Mg Tab) 162 mg PO DAILY [facility] Last Admin: 01/10/24 08:29 Dose: 162 mg Atorvastatin Calcium (Atorvastatin 40 Mg Tab) 40 mg PO BEDTIME [facility] Last Admin: 01/10/24 20:17 Dose: 40 mg Bumetanide (Bumetanide 1 Mg Tablet) 2 mg PO BIDL [facility] Last Admin: 01/10/24 16:07 Dose: 2 mg Docusate Sodium (Docusate Na 100 Mg Cap) 100 mg PO BID [facility] Last Admin: 01/10/24 08:29 Dose: 100 mg Ergocalciferol (Drisdol (Vitamin D=Ergocalciferol) 23113 Unit Cap) 50,000 unit PO Q48H [facility] Stop: 01/12/24 09:01 Last Admin: 01/10/24 08:29 Dose: 50,000 unit Glucagon (Glucagon 1 Mg/Vial) 1 mg IM 1X PRN PRN Reason: HYPOGLYCEMIA Heparin Sodium (Porcine) (Heparin 5000 Unit/Ml 1 Ml Vial) 5,000 unit SQ Q12HR [facility] Last Admin: 01/10/24 20:17 Dose: 5,000 unit Hydromorphone HCl (Hydromorphone Hcl 1 Mg/Ml Inj) 1 mg IV Q4H PRN PRN Reason: Pain scale 8-10 (Severe) Last Admin: 01/10/24 20:18 Dose: 1 mg Cefepime HCl 1 gm/ Sodium (Chloride) 100 mls @ 200 mls/hr IV DAILY [facility]; Protocol Last Admin: 01/10/24 08:28 Dose: 100 mls Dextrose (Dextrose 10% Water Iv Soln.) 125 mls @ 0 mls/hr IV PRN PRN; Protocol PRN Reason: HYPOGLYCEMIA Insulin Human Regular (Insulin Regular (Human) 100 Unit/Ml) 0 unit SQ ACHS [facility]ONY; Protocol Last Admin: 01/10/24 16:00 Dose: Not Given Ondansetron HCl (Ondansetron 4 Mg/2 Ml Vial) 4 mg IV Q8H PRN PRN Reason: NAUSEA / VOMITING Promethazine HCl (Promethazine 25 Mg Tablet) 25 mg PO Q8H PRN PRN Reason: NAUSEA / VOMITING Last Admin: 01/09/24 20:04 Dose: 25 mg Sevelamer Carbonate (Sevelamer Carbonate 800 Mg Tablet) 800 mg PO TIDWM [facility]ONY Last Admin: 01/10/24 16:07 Dose: 800 mg Vitamin B Complex/Vit C/Folic Acid (Multivitamins,Therapeut 1 Tab) 1 tab PO DAILY [facility] Last Admin: 01/10/24 08:29 Dose: 1 tab Microbiology Results 01/09/24 09:35 Blood - Blood Aerobic Blood Culture - Preliminary No growth in 24 hours. 01/09/24 09:35 Blood - Blood Anaerobic Blood Culture - Final 01/08/24 22:30 Body Fluid - Peritoneal Fluid Gram Stain - Final 01/08/24 22:30 Body Fluid - Peritoneal Fluid Culture & Sensitivity - Preliminary Assessment/ Plan: Nephrology Progress Note Orthopnea Reduced urine output Episode of back pain earlier today No Chest Pain No Acute Events Overnight Vital Signs, Medications, Blood Work, and Imaging reviewed in the chart NAD. NCAT. MMM. Neck Supple. Normal Respiratory Effort. RRR. Abd ND. No C/C. Hip Edema 1+. No Rash. AAO. Normal Speech. Assessment & Plan ESRD on PD Hyponatremia -PD as ordered -Colace BID HTN with CKD/ CHF -Monitor BP Systolic CHF, A/C BL Pleural Effusion -Low sodium diet -Continue UF with PD -Continue Bumex BID DM II with CKD, Polyneuropathy -RISS Hypoalbuminemia -Encourage protein intake Anemia in CKD -Retacrit PRN CKD MBD -Increase Renvela -Continue Ergo Acute Infective Cystitis -Continue Abx -ID following Hospitalist note reviewed EXAM DESCRIPTION: CT - Chest Abd Pelvis Wo Con - 01/08/2024 7:02 am CLINICAL HISTORY: Abdominal distention;Dyspnea COMPARISON: None Available. TECHNIQUE: Contiguous axial images of the chest, abdomen and pelvis were obtained followed by reconstruction images.This exam was performed according to our departmental dose-optimization program, which includes automated exposure control, adjustment of the mA and/or kV according to patient size and/or use of iterative reconstruction technique. FINDINGS: There is free air within the abdomen. There is a percutaneous dialysis catheter. There is diffuse atherosclerosis. There is a small amount of free fluid in the pelvis. Stranding of the subcutaneous fat compatible with anasarca. There are bilateral pleural fluid collections, left greater than right. Increased opacity in the left lower lung may represent atelectasis. There are coronary arterial calcifications. The aorta is of normal contour and tapering. There is no pneumothorax. The liver, spleen, pancreas and kidneys are within normal limits. There is no hydronephrosis or renal stones. The gallbladder is unremarkable by CT criteria. Adrenal glands are within normal limits. Aorta is of normal caliber and tapering. There is no bowel obstruction. There is no stranding of the mesenteric fat to suggest an inflammatory response. The appendix was not visualized. Area of increased attenuation at the pericecal level could be related to prior appendectomy. There is no pericecal inflammation. IMPRESSION: 1. Pneumoperitoneum could be secondary to a percutaneous dialysis catheter. Recommend correlation with patient history. 2. Bilateral pleural fluid collections, left greater than right. Increased opacity in the left lower lung may represent atelectasis. 3. Small amount of free fluid in the pelvis. Anasarca. EXAM DESCRIPTION: RAD - Chest Single View - 01/08/2024 12:43 am CLINICAL HISTORY: ABDOMINAL DISTENTION COMPARISON: None FINDINGS: Cardiac silhouette is within normal limits. Blunted left costophrenic angle and increased opacity in the left lower lung could represent combination of pleural fluid and atelectasis. Other etiologies are not excluded.. There is no acute osseous process visualized. IMPRESSION: Blunted left costophrenic angle and increased opacity in the left lower lung
[2024-01-11 07:01] LABS: Anion Gap 14.4 mEq/L (5.0-15.0); Potassium 4.4 mEq/L (3.5-5.1)
[2024-01-11] MEDS: ONDANSETRON 4 MG/2 ML VIAL IV PRN (07:47)
--- NOTE | 2024-01-11 09:12 | P.PN ---
Date of Service: 01/11/24 INFECTIOUS DISEASE PROGRESS NOTE Subjective: Patient seen and examined in room. She reports severe left back pain last night. Currently, no new or worsening complaints at this time. Physical Examination Temp Pulse Resp BP Pulse Ox 97.0 F 75 17 111/59 L 96 01/11/24 04:00 01/11/24 04:00 01/11/24 07:39 01/11/24 04:00 01/11/24 07:39 General: Alert, In no apparent distress, Oriented x3 HEENT: Atraumatic, Normocephalic Respiratory: Clear to auscultation bilaterally, Normal air movement Cardiovascular: Regular rate/rhythm Gastrointestinal: Non-tender. Normoactive bowel sounds. Peritoneal dialysis catheter. Musculoskeletal: Bilateral BKA. Integumentary: No rashes Neurological: Normal speech, Normal tone, Normal affect Laboratory Data - Reviewed Microbiology Data - Reviewed Imagings Data: - CT abdomen pelvis 01/06: " 1. Pneumoperitoneum could be secondary to a percutaneous dialysis catheter. Recommend correlation with patient history. 2. Bilateral pleural fluid collections, left greater than right. Increased opacity in the left lower lung may represent atelectasis. 3. Small amount of free fluid in the pelvis. Anasarca" Medications List: Reviewed Assessment and Plan Problem List Urinary Tract Infection ESRD on Peritoneal Dialysis Diabetes Mellitus type II NSTEMI Chronic Systolic Congestive Heart Failure Hypertension Acute Cystitis - failed outpatient antibiotic on ciprofloxacin - Urine culture obtained from outside laboratory on 01/02: Klebsiella oxytoca, Escherichia coli and Serratia liquefaciens - blood cultures 01/08: no growth 24 hours - Currently on Cefepime 1g IV Q24H (started 01/07) - CT chest abdomen pelvis 01/06: "1. Pneumoperitoneum could be secondary to a percutaneous dialysis catheter. Recommend correlation with patient history. 2. Bilateral pleural fluid collections, left greater than right. Increased opacity in the left lower lung may represent atelectasis. 3. Small amount of free fluid in the pelvis. Anasarca." The liver, spleen, pancreas and kidneys are within normal limits. There is no hydronephrosis or renal stones. - Peritoneal fluid analysis: not suggestive of infection. No peritoneal signs. - Peritoneal culture: MRSA - Afebrile Recommendations Peritoneal fluid culture now growing MRSA. Recommend treatment of peritoneal fluid MRSA with Vancomycin IV x 14 days. Renally dose, pharmacy consulted for assistance with dosing. - UTI: Continue Cefepime for 7 days (01/07-01/14). - monitor CBC and BMP and vanco troughs - strict blood glucose control - nephrology following - continue supportive care Case discussed with Jimy Carroll
[2024-01-11] MEDS: SEVELAMER CARBONATE 800 MG TABLET PO SCH (09:36)
--- NOTE | 2024-01-11 14:39 | P.PN ---
Subjective Date of Service: 01/11/24 Chief Complaint: Abdominal pain; ESRD on peritoneal dialysis; elevated troponin Patient reports intermittent back pain. No recorded fever. She has been tolerating her diet. Physical Examination - Vital Signs Temperature: 97.0 F Blood Pressure: 124/75 Pulse: 76 Respirations: 17 Pulse Ox (%): 100 - Studies Microbiology Data (last 24 hrs): 01/08/24 22:30 Body Fluid - Peritoneal Fluid Gram Stain - Final 01/08/24 22:30 Body Fluid - Peritoneal Fluid Culture & Sensitivity - Final Meth Resistant Staph Aureus 01/09/24 09:35 Blood - Blood Anaerobic Blood Culture - Final Assessment And Plan - Plan Physical Exam: GEN: Alert, oriented, NAD. CV: Regular rate and rhythm, trace to 1+ lower extremity edema Pulm: clear bilaterally, adequate breath sounds ABD: Soft, nontender, PD cath without surrounding erythema, +L CVA/flank tenderness MSK: bilateral BKA Neuro: Normal speech, normal affect vitals reviewed Problem List: UTI, failed outpatient therapy; multiple organisms - Klebsiella Oxytoca Raoultella ornithinolytica, E. coli, Serratia Liquefaciens (resistant to Carbapenem) ESRD on peritoneal dialysis mild-moderate Bilateral Pleural effusions L > R chronic systolic CHF, HFrEF (EF:25% per patient report) NSTEMI, suspect type II Hypertension IDDM2 UTI, failed outpatient therapy multiple organisms - Klebsiella Oxytoca Raoultella ornithinolytica, E. coli, Serratia Liquefaciens (resistant to Carbapenem) CT abd/pelvis (01/07): pneumoperitoneum likely secondary to peritoneal dialysis, bilateral pleural fluid collections L > R, possible lower left lung atelectasis, small amount of free fluid in pelvis. Anasarca Patient without abdominal tenderness - no peritoneal signs on exam pain is focused in left flank/back likely due to ascending urinary infection, UA grossly abnormal / +bacteruria Urine culture from outside facility with multiple organisms - Klebsiella Oxytoca Raoultella ornithinolytica, E. coli, Serratia Liquefaciens (resistant to Carbapenem) Given rocephin, IV steroids shortly after admission. IV Rocephin changed to IV cefepime. Peritoneal fluid analysis does not indicate peritonitis. Peritoneal fluid culture is growing MRSA. Infectious disease input appreciated. 2 weeks of vancomycin recommended. IV vancomycin versus peritoneal dwelling vanco. Blood culture shows no growth to date. Continue cefepime / flagyl (01/07-) ESRD on peritoneal dialysis mild-moderate Bilateral Pleural effusions L > R chronic systolic CHF, HFrEF (EF:25% per patient report) CXR with blunted left costophrenic angle and increased opacity in left lower lung could represent pleural fluid/atelectasis Nephrology is following. Patient is undergoing routine peritoneal dialysis Continue to monitor renal function NSTEMI, suspect type II troponins elevated x3 but trended flat likely demand ischemia in setting of ESRD Cardiology input appreciated. Hypertension Patient is currently normotensive. Continue to hold antihypertensives. IDDM2 Blood glucose readings are within acceptable range. Accu-checks, SSI VTE: heparin sq Code: Full Dispo: Home.
[2024-01-11] MEDS: VANCOMYCIN 2.25 GM in NA CHLORIDE 0.9% 500 ML IVPB ONE (15:39)
--- NOTE | 2024-01-11 21:12 | P.PN ---
Date of Service: 01/11/24 Vital Signs Temp Pulse Resp BP Pulse Ox 97.2 F 89 17 133/82 100 01/11/24 20:00 01/11/24 20:00 01/11/24 20:00 01/11/24 20:00 01/11/24 20:00 Medications Acetaminophen (Acetaminophen 500 Mg Tab) 500 mg PO Q6H PRN PRN Reason: Pain scale 2-4 (Mild)/Fever Hydrocodone Bitart/Acetaminophen (Hydrocodone/Apap 10/325 Tab) 1 tab PO Q6H PRN PRN Reason: Pain scale 5-7 (Moderate) Last Admin: 01/08/24 13:37 Dose: 1 tab Aspirin (Aspirin Ec 81 Mg Tab) 162 mg PO DAILY [facility] Last Admin: 01/11/24 09:36 Dose: 162 mg Atorvastatin Calcium (Atorvastatin 40 Mg Tab) 40 mg PO BEDTIME [facility] Last Admin: 01/10/24 20:17 Dose: 40 mg Bumetanide (Bumetanide 1 Mg Tablet) 2 mg PO BIDL [facility] Last Admin: 01/11/24 17:23 Dose: 2 mg Docusate Sodium (Docusate Na 100 Mg Cap) 100 mg PO BID [facility] Last Admin: 01/11/24 09:36 Dose: 100 mg Ergocalciferol (Drisdol (Vitamin D=Ergocalciferol) 33663 Unit Cap) 50,000 unit PO Q48H [facility] Stop: 01/12/24 09:01 Last Admin: 01/10/24 08:29 Dose: 50,000 unit Glucagon (Glucagon 1 Mg/Vial) 1 mg IM 1X PRN PRN Reason: HYPOGLYCEMIA Heparin Sodium (Porcine) (Heparin 5000 Unit/Ml 1 Ml Vial) 5,000 unit SQ Q12HR [facility] Last Admin: 01/11/24 09:36 Dose: 5,000 unit Hydromorphone HCl (Hydromorphone Hcl 1 Mg/Ml Inj) 1 mg IV Q4H PRN PRN Reason: Pain scale 8-10 (Severe) Last Admin: 01/11/24 19:38 Dose: 1 mg Cefepime HCl 1 gm/ Sodium (Chloride) 100 mls @ 200 mls/hr IV DAILY [facility]; Protocol Last Admin: 01/11/24 09:35 Dose: 100 mls Dextrose (Dextrose 10% Water Iv Soln.) 125 mls @ 0 mls/hr IV PRN PRN; Protocol PRN Reason: HYPOGLYCEMIA Vancomycin HCl 1.5 gm/ Sodium (Chloride) 500 mls @ 333.333 mls/hr IVPB Q7D [facility] Insulin Human Regular (Insulin Regular (Human) 100 Unit/Ml) 0 unit SQ ACHS [facility]; Protocol Last Admin: 01/11/24 16:30 Dose: Not Given Ondansetron HCl (Ondansetron 4 Mg/2 Ml Vial) 4 mg IV Q8H PRN PRN Reason: NAUSEA / VOMITING Last Admin: 01/11/24 07:47 Dose: 4 mg Promethazine HCl (Promethazine 25 Mg Tablet) 25 mg PO Q8H PRN PRN Reason: NAUSEA / VOMITING Last Admin: 01/09/24 20:04 Dose: 25 mg Sevelamer Carbonate (Sevelamer Carbonate 800 Mg Tablet) 1,600 mg PO TIDWM [facility] Last Admin: 01/11/24 17:23 Dose: 1,600 mg Vitamin B Complex/Vit C/Folic Acid (Multivitamins,Therapeut 1 Tab) 1 tab PO GERBER LY [facility] Last Admin: 01/11/24 09:36 Dose: 1 tab Microbiology Results 01/08/24 22:30 Body Fluid - Peritoneal Fluid Gram Stain - Final 01/08/24 22:30 Body Fluid - Peritoneal Fluid Culture & Sensitivity - Final Meth Resistant Staph Aureus 01/09/24 09:35 Blood - Blood Aerobic Blood Culture - Preliminary No growth in 24 hours. 01/09/24 09:35 Blood - Blood Anaerobic Blood Culture - Final Assessment/ Plan: Nephrology Progress Note Orthopnea improved No Dyspnea No Chest Pain No Acute Events Overnight Vital Signs, Medications, Blood Work, and Imaging reviewed in the chart NAD. NCAT. MMM. Neck Supple. Normal Respiratory Effort. RRR. Abd ND. No C/C. Hip Edema 1+. No Rash. AAO. Normal Speech. Assessment & Plan ESRD on PD Hyponatremia -PD as ordered -Colace BID HTN with CKD/ CHF -Monitor BP Systolic CHF, A/C BL Pleural Effusion -Low sodium diet -Continue UF with PD -Continue Bumex BID DM II with CKD, Polyneuropathy -RISS Hypoalbuminemia -Encourage protein intake Anemia in CKD -Retacrit PRN CKD MBD -Continue Renvela -Continue Ergo Acute Infective Cystitis Peritonitis -Vancomycing X14 days -Cefepime X7 days -ID following Case reviewed with Dr. Rosa and Dr. Alvarado EXAM DESCRIPTION: CT - Chest Abd Pelvis Wo Con - 01/08/2024 7:02 am CLINICAL HISTORY: Abdominal distention;Dyspnea COMPARISON: None Available. TECHNIQUE: Contiguous axial images of the chest, abdomen and pelvis were obtained followed by reconstruction images.This exam was performed according to our departmental dose-optimization program, which includes automated exposure control, adjustment of the mA and/or kV according to patient size and/or use of iterative reconstruction technique. FINDINGS: There is free air within the abdomen. There is a percutaneous dialysis catheter. There is diffuse atherosclerosis. There is a small amount of free fluid in the pelvis. Stranding of the subcutaneous fat compatible with anasarca. There are bilateral pleural fluid collections, left greater than right. Increased opacity in the left lower lung may represent atelectasis. There are coronary arterial calcifications. The aorta is of normal contour and tapering. There is no pneumothorax. The liver, spleen, pancreas and kidneys are within normal limits. There is no hydronephrosis or renal stones. The gallbladder is unremarkable by CT criteria. Adrenal glands are within normal limits. Aorta is of normal caliber and tapering. There is no bowel obstruction. There is no stranding of the mesenteric fat to suggest an inflammatory response. The appendix was not visualized. Area of increased attenuation at the pericecal level could be related to prior appendectomy. There is no pericecal inflammation. IMPRESSION: 1. Pneumoperitoneum could be secondary to a percutaneous dialysis catheter. Recommend correlation with patient history. 2. Bilateral pleural fluid collections, left greater than right. Increased opacity in the left lower lung may represent atelectasis. 3. Small amount of free fluid in the pelvis. Anasarca. EXAM DESCRIPTION: RAD - Chest Single View - 01/08/2024 12:43 am CLINICAL HISTORY: ABDOMINAL DISTENTION COMPARISON: None FINDINGS: Cardiac silhouette is within normal limits. Blunted left costophrenic angle and increased opacity in the left lower lung could represent combination of pleural fluid and atelectasis. Other etiologies are not excluded.. There is no acute osseous process visualized. IMPRESSION: Blunted left costophrenic angle and increased opacity in the left lower lung
[2024-01-12 06:44] LABS: Absolute Basophils 0.1 K/uL (0-0.5); Absolute Eosinophils 0.2 K/uL (0-0.5); Absolute Lymphocytes (CBC) 1.2 K/uL (0.7-4.9); Absolute Monocytes 0.9 K/uL (0.1-1.3); Absolute Neutrophil 9.6 K/uL (1.8-8.0); Basophils % 0.6 % (0-1.3); Eosinophils % 1.9 % (0-4.4); Hematocrit 29.7 % (36.0-45.0); Hemoglobin 9.5 g/dL (12.0-15.0); Lymphocytes % 9.6 % (15.3-44.8); MCH 29.7 pg (27.0-35.0); MCHC 32.1 g/dL (32.0-36.0); MCV 92.6 fL (80-100); MPV 8.8 fL (7.6-11.3); Monocytes % 7.9 % (3.3-12.3); Platelets 291 thou/uL (152-406); RBC Red Blood Cell Count 3.21 M/uL (3.86-4.86); Red Cell Distribution Width 16.6 % (12.1-15.2)
--- NOTE | 2024-01-12 07:14 | ECHO ---
HEIGHT: 6 ft 0 in WEIGHT: 254 lb 11.2 oz DATE OF STUDY: 01/11/[address]: Angel Montelongo 2-DIMENSIONAL: YES M.MODE: YES DOPPLER: YES COLOR FLOW: YES TDS: PORTABLE: YES DEFINITY: BUBBLE STUDY: DIAGNOSIS: CHEST PAIN CARDIAC HISTORY: CATHERIZATION: YES SURGERY: NO PROSTHETIC VALVE: NO PACEMAKER: NO MEASUREMENTS (cm) DIASTOLIC (NORMALS) SYSTOLIC (NORMALS) IVSd 1.0 (0.6-1.2) LA Diam 3.4 (1.9-4.0) LVEF 47% LVIDd 6.1 (3.5-5.7) LVIDs 4.6 (2.0-3.5) %FS 24% LVPWd 1.1 (0.6-1.2) Ao Diam 2.7 (2.0-3.7) 2 DIMENSIONAL ASSESSMENT: RIGHT ATRIUM: NORMAL LEFT ATRIUM: NORMAL RIGHT VENTRICLE: MILD DILATED LEFT VENTRICLE: DILATED TRICUSPID VALVE: MILD TRICUSPID REGURGITATION MITRAL VALVE: NORMAL PULMONIC VALVE: NORMAL AORTIC VALVE: NORMAL PERICARDIAL EFFUSION: NONE AORTIC ROOT: NORMAL LEFT VENTRICULAR WALL MOTION: SEVERE GLOBAL HYPOKINESIS DOPPLER/COLOR FLOW: DIASTOLIC DYSFUNCTION COMMENTS: 1. SEVERE REDUCED LEFT VENTRICULAR SYSTOLIC FUNCTION, EJECTION FRACTION 10-15%, SEVERE GLOBAL HYPOKINESIS 2. DIASTOLIC DYSFUNCTION 3. ELEVATED RIGHT ATRIAL FILLING PRESSURE (GREATER THAN 20 mmHg), MODERATE PULMONARY HYPERTENSION (RIGHT VENTRICULAR SYSTOLIC PRESSURE 50-55 mmHg) TECHNOLOGIST: JABIER GALLARDO
--- NOTE | 2024-01-12 11:57 | P.PN ---
Date of Service: 01/12/24 INFECTIOUS DISEASE PROGRESS NOTE Subjective: No acute events overnight. + intermittent left back/flank pain. Otherwise no new/worsening complaints. No abdominal pain. In no apparent distress. Physical Examination Temp Pulse Resp BP Pulse Ox 97.4 F 74 16 123/83 98 01/12/24 08:00 01/12/24 08:00 01/12/24 08:00 01/12/24 08:00 01/12/24 08:00 General: Alert, In no apparent distress, Oriented x3 HEENT: Atraumatic, Normocephalic. Sclera nonicteric Respiratory: Clear to auscultation bilaterally, Normal air movement. Unlabored respirations on room air. Cardiovascular: Regular rate/rhythm. Gastrointestinal: Non-tender. Normoactive bowel sounds. Soft. Peritoneal dialysis catheter. Musculoskeletal: Bilateral BKA. Integumentary: No rashes Neurological: Normal speech, Normal tone, Normal affect Laboratory Data - Reviewed Microbiology Data - Reviewed Imagings Data: - CT abdomen pelvis 01/06: " 1. Pneumoperitoneum could be secondary to a percutaneous dialysis catheter. Recommend correlation with patient history. 2. Bilateral pleural fluid collections, left greater than right. Increased opacity in the left lower lung may represent atelectasis. 3. Small amount of free fluid in the pelvis. Anasarca" Medications List: Reviewed Assessment and Plan Problem List Urinary Tract Infection ESRD on Peritoneal Dialysis Diabetes Mellitus type II NSTEMI Chronic Systolic Congestive Heart Failure Hypertension Acute Cystitis - failed outpatient antibiotic on ciprofloxacin - Urine culture obtained from outside laboratory on 01/02: Klebsiella oxytoca, Escherichia coli and Serratia liquefaciens - blood cultures 01/08: no growth 24 hours - Currently on Cefepime 1g IV Q24H (started 01/07) - CT chest abdomen pelvis 01/06: "1. Pneumoperitoneum could be secondary to a percutaneous dialysis catheter. Recommend correlation with patient history. 2. Bilateral pleural fluid collections, left greater than right. Increased opacity in the left lower lung may represent atelectasis. 3. Small amount of free fluid in the pelvis. Anasarca." The liver, spleen, pancreas and kidneys are within normal limits. There is no hydronephrosis or renal stones. - Peritoneal fluid analysis: not suggestive of infection. No peritoneal signs. - Peritoneal culture: Methicillin-Resistant Staphylococcus aureus (MRSA) Afebrile Recommendations - MRSA Peritoneal fluid culture: Recommend treatment with Vancomycin IV x 14 days. - UTI: Continue Cefepime for 7 days (01/07-01/14). On day 01/14. - Renally dose medications (peritoneal dialysis); pharmacy consulted for assistance with dosing - nephrology following - monitor CBC and BMP and vanco troughs - strict blood glucose control - continue supportive care Case discussed with Jimy Carroll
--- NOTE | 2024-01-12 14:37 | P.DS ---
Admission Date: 01/09/24 Discharge Date: 01/12/24 Disposition: ROUTINE DISCHARGE Discharge Condition: FAIR Reason for Admission: Abdominal pain; ESRD on peritoneal dialysis; elevated troponin Brief History of Present Illness: Patient is a 48-year-old female who came to the emergency room with abdominal discomfort. She was seen by her drug abuse program coordinator diagnosed with UTI and started on Cipro which she took as prescribed . However, the abdominal discomfort persisted so she came to the emergency department for evaluation. Patient also complained of back pain and left flank pain. In the ER, patient was evaluated with CT imaging studies. Patient with pneumoperitoneum from peritoneal dialysis; some mild ascites but no other abnormal findings were noted. Patient denied any fever, shakes, or chills. Patient with no significant leukocytosis. Patient states that she can do her own peritoneal dialysis in the hospital. Her troponins were elevated which is not unusual in patients on dialysis. Patient was hospitalized for further management. Hospital Course: Diagnosis UTI, failed outpatient therapy; multiple organisms - Klebsiella Oxytoca Raoultella ornithinolytica, E. coli, Serratia Liquefaciens (resistant to Carbapenem) ESRD on peritoneal dialysis mild-moderate Bilateral Pleural effusions L > R chronic systolic CHF, HFrEF (EF:25% per patient report) NSTEMI, suspect type II Hypertension IDDM2 UTI, failed outpatient therapy multiple organisms - Klebsiella Oxytoca Raoultella ornithinolytica, E. coli, Serratia Liquefaciens (resistant to Carbapenem) CT abd/pelvis (01/07): pneumoperitoneum likely secondary to peritoneal dialysis, bilateral pleural fluid collections L > R, possible lower left lung atelectasis, small amount of free fluid in pelvis. Anasarca Patient without abdominal tenderness - no peritoneal signs on exam She had pain in the left flank/back likely due to ascending urinary infection, UA grossly abnormal / +bacteruria Urine culture from outside facility with multiple organisms - Klebsiella Oxytoca Raoultella ornithinolytica, E. coli, Serratia Liquefaciens (resistant to Carbapenem) Patient treated with IV Rocephin, IV steroids shortly after admission. IV Rocephin changed to IV cefepime based on organisms sensitivity Peritoneal fluid analysis did not indicate peritonitis. Peritoneal fluid culture grew MRSA. Infectious disease input appreciated. 2 weeks of vancomycin recommended. IV vancomycin versus peritoneal dwelling vanco. Nephrology Dr. Suh has arranged for outpatient IV cefepime and vancomycin to be given during peritoneal dialysis. Blood culture showed no growth to date. ESRD on peritoneal dialysis mild-moderate Bilateral Pleural effusions L > R chronic systolic CHF, HFrEF (EF:25% per patient report) CXR with blunted left costophrenic angle and increased opacity in left lower lung could represent pleural fluid/atelectasis Patient evaluated by nephrology Dr. Suh Patient underwent routine peritoneal dialysis NSTEMI, suspect type II troponins elevated x3 but trended flat Seen by cardiology, elevated troponin deemed secondary to demand ischemia in setting of ESRD Hypertension Patient was normotensive during the hospital stay and did not require any antihypertensive. Her antihypertensives were held during the hospital stay. They were not resumed on discharge because patient remained normotensive. IDDM2 Managed with Accu-checks, SSI. Blood sugar readings were within acceptable range so patient was not given any long-acting insulin. She is on Trulicity which is resumed on discharge. Vital Signs/Physical Exam: Temp Pulse Resp BP Pulse Ox 97.3 F 70 16 117/70 99 01/12/24 12:00 01/12/24 12:00 01/12/24 12:00 01/12/24 12:00 01/12/24 12:00 General: Alert, In no apparent distress, Oriented x3 HEENT: Mucous membr. moist/pink Neck: JVD not distended Respiratory: Clear to auscultation bilaterally, Normal air movement Cardiovascular: Regular rate/rhythm, Normal S1 S2 Gastrointestinal: Normal bowel sounds, Soft and benign, Non-distended Musculoskeletal: Other (Bilateral AKA) Integumentary: No cyanosis Neurological: Normal strength at 5/5 x4 extr Laboratory Data at Discharge: WBC 12.00 thou/uL (4.3-10.9) H 01/12/24 06:34 Hgb 9.5 g/dL (12.0-15.0) L 01/12/24 06:34 Hct 29.7 % (36.0-45.0) L 01/12/24 06:34 Plt Count 291 thou/uL (152-406) 01/12/24 06:34 PT 13.7 SECONDS (9.5-12.5) H 01/08/24 00:03 INR 1.25 01/08/24 00:03 Sodium 132 mEq/L (136-145) L 01/12/24 06:34 Potassium 5.0 mEq/L (3.5-5.1) D 01/12/24 06:34 BUN 69 mg/dL (7-18) H 01/12/24 06:34 Creatinine 9.15 mg/dL (0.55-1.02) H 01/12/24 06:34 Glucose 159 mg/dL (74-106) H 01/12/24 06:34 Phosphorus 7.4 mg/dL (2.5-4.9) H 01/10/24 03:18 Magnesium 1.9 mg/dL (1.6-2.4) 01/10/24 03:18 Total Bilirubin 0.3 mg/dL (0.2-1.0) 01/10/24 03:18 AST < 4 U/L (15-37) L 01/10/24 03:18 ALT < 10 U/L (13-56) L 01/10/24 03:18 Alkaline Phosphatase 89 U/L (45-117) 01/10/24 03:18 Lipase 26 U/L (13-75) 01/08/24 00:03 Home Medications: Biotin/Keratin [Biotin Plus Keratin Tablet] 1 tab PO DAILY 05/23/20 Cyanocobalamin (Vitamin B-12) [Vitamin B12] 1 tab PO DAILY 05/23/20 Dulaglutide [Trulicity] 1.5 mg SQ EVERY 7TH DAY 08/26/20 Iron 18 mg PO DAILY 09/08/21 Calcitrol [Rocaltrol*] 0.25 mcg PO Q48H #15 cap 09/10/21 Hydrocodone 5/APAP 325 [[place] 5/325*] 1 tab PO Q6H PRN #15 tab 09/10/21 Pantoprazole [Protonix Tab*] 40 mg PO DAILY #30 tab 09/10/21 Atorvastatin Calcium [Lipitor] 40 mg PO BEDTIME #30 tab 01/12/24 Bumetanide [Bumex*] 2 mg PO BIDL #120 tab 01/12/24 Docusate [Colace Cap*] 100 mg PO BID #60 cap 01/12/24 Promethazine Tab [Phenergan*] 25 mg PO Q8H PRN #30 tab 01/12/24 Sevelamer Carbonate [Renvela*] 1,600 mg PO TIDWM #180 tab 01/12/24 New Medications: Bumetanide [Bumex*] 2 mg PO BIDL #120 tab Docusate [Colace Cap*] 100 mg PO BID #60 cap Atorvastatin Calcium [Lipitor] 40 mg PO BEDTIME #30 tab Promethazine Tab [Phenergan*] 25 mg PO Q8H PRN #30 tab PRN Reason: Nausea / Vomiting Sevelamer Carbonate [Renvela*] 1,600 mg PO TIDWM #180 tab Physician Discharge Instructions: Dr. Suh your kidney doctor has arranged for 2 antibiotics to be given through your peritoneal dialysis to treat possible peritoneal infection and also to continue treatment for the urinary tract infection. Diet: Renal (ADA diet) Activity: Fall precautions Followup: Akira Suero FNP [Primary Care Provider] - Richard Suh DO [ACTIVE - CAN ADMIT] - 1 Week Time spent managing pt's care (in minutes): 38
[2024-01-12 17:17] VITALS: BP 122/77; TEMP 97.6
--- NOTE | 2024-01-12 21:03 | P.PN ---
Date of Service: 01/12/24 Vital Signs Temp Pulse Resp BP Pulse Ox 97.6 F 78 16 122/77 100 01/12/24 16:00 01/12/24 16:00 01/12/24 16:00 01/12/24 16:00 01/12/24 16:00 Microbiology Results 01/09/24 08:49 Clean Catch Urine [place] Count - Preliminary >100,000 CFU/ML. 01/09/24 08:49 Clean Catch Urine - Preliminary MIXED ALEVRTO. 01/08/24 22:30 Body Fluid - Peritoneal Fluid Gram Stain - Final 01/08/24 22:30 Body Fluid - Peritoneal Fluid Culture & Sensitivity - Final Meth Resistant Staph Aureus 01/09/24 09:35 Blood - Blood Aerobic Blood Culture - Preliminary No growth in 24 hours. 01/09/24 09:35 Blood - Blood Anaerobic Blood Culture - Final Assessment/ Plan: Nephrology Progress Note No Dyspnea No Chest Pain Feeling better No Acute Events Overnight Vital Signs, Medications, Blood Work, and Imaging reviewed in the chart NAD. NCAT. MMM. Neck Supple. Normal Respiratory Effort. RRR. Abd ND. No C/C. Hip Edema 1+. No Rash. AAO. Normal Speech. Assessment & Plan ESRD on PD Hyponatremia -PD as ordered -Colace BID HTN with CKD/ CHF -Monitor BP Systolic CHF, A/C BL Pleural Effusion -Low sodium diet -Continue UF with PD -Continue Bumex BID DM II with CKD, Polyneuropathy -RISS Hypoalbuminemia -Encourage protein intake Anemia in CKD -Retacrit PRN CKD MBD -Continue Renvela -Continue Ergo Acute Infective Cystitis Peritonitis -Vancomycing X14 days -Cefepime X7 days -ID following Case reviewed with Dr. Rosa EXAM DESCRIPTION: CT - Chest Abd Pelvis Wo Con - 01/08/2024 7:02 am CLINICAL HISTORY: Abdominal distention;Dyspnea COMPARISON: None Available. TECHNIQUE: Contiguous axial images of the chest, abdomen and pelvis were obtained followed by reconstruction images.This exam was performed according to our departmental dose-optimization program, which includes automated exposure control, adjustment of the mA and/or kV according to patient size and/or use of iterative reconstruction technique. FINDINGS: There is free air within the abdomen. There is a percutaneous dialysis catheter. There is diffuse atherosclerosis. There is a small amount of free fluid in the pelvis. Stranding of the subcutaneous fat compatible with anasarca. There are bilateral pleural fluid collections, left greater than right. Increased opacity in the left lower lung may represent atelectasis. There are coronary arterial calcifications. The aorta is of normal contour and tapering. There is no pneumothorax. The liver, spleen, pancreas and kidneys are within normal limits. There is no hydronephrosis or renal stones. The gallbladder is unremarkable by CT criteria. Adrenal glands are within normal limits. Aorta is of normal caliber and tapering. There is no bowel obstruction. There is no stra nding of the mesenteric fat to suggest an inflammatory response. The appendix was not visualized. Area of increased attenuation at the pericecal level could be related to prior appendectomy. There is no pericecal inflammation. IMPRESSION: 1. Pneumoperitoneum could be secondary to a percutaneous dialysis catheter. Recommend correlation with patient history. 2. Bilateral pleural fluid collections, left greater than right. Increased opacity in the left lower lung may represent atelectasis. 3. Small amount of free fluid in the pelvis. Anasarca. EXAM DESCRIPTION: RAD - Chest Single View - 01/08/2024 12:43 am CLINICAL HISTORY: ABDOMINAL DISTENTION COMPARISON: None FINDINGS: Cardiac silhouette is within normal limits. Blunted left costophrenic angle and increased opacity in the left lower lung could represent combination of pleural fluid and atelectasis. Other etiologies are not excluded.. There is no acute osseous process visualized. IMPRESSION: Blunted left costophrenic angle and increased opacity in the left lower lung
[2024-01-18] MEDS ORDERED: VANCOMYCIN 1.5 GM in NA CHLORIDE 0.9% 500 ML IVPB SCH (16:00)
== END 2024-01-12 18:26 | disposition home or self-care (01) | DRG 689 ==
LOC: ER 23:45 → ERHOLD 01-08 03:08 → 2ND 01-08 14:40 → OBSVTOIN 01-09 11:51
PROVIDERS: ADMIT Hospitalist; ATTEND Internal Medicine
DX: N30.00 Acute cystitis without hematuria (principal); I21.A1 Myocardial infarction type 2; N18.6 End stage renal disease; I50.23 Acute on chronic systolic (congestive) heart failure; R18.8 Other ascites; I13.2 Hypertensive heart and chronic kidney disease with heart failure and with stage 5 chronic kidney disease, or end stage renal disease; Z16.29 Resistance to other single specified antibiotic; E87.1 Hypo-osmolality and hyponatremia; E11.22 Type 2 diabetes mellitus with diabetic chronic kidney disease; E11.42 Type 2 diabetes mellitus with diabetic polyneuropathy; E11.51 Type 2 diabetes mellitus with diabetic peripheral angiopathy without gangrene; D63.1 Anemia in chronic kidney disease; E03.9 Hypothyroidism, unspecified; E88.09 Other disorders of plasma-protein metabolism, not elsewhere classified; E78.00 Pure hypercholesterolemia, unspecified; E88.810 Metabolic syndrome; I25.10 Atherosclerotic heart disease of native coronary artery without angina pectoris; B96.1 Klebsiella pneumoniae [K. pneumoniae] as the cause of diseases classified elsewhere; B96.20 Unspecified Escherichia coli [E. coli] as the cause of diseases classified elsewhere; B96.89 Other specified bacterial agents as the cause of diseases classified elsewhere; B95.62 Methicillin resistant Staphylococcus aureus infection as the cause of diseases classified elsewhere; R79.89 Other specified abnormal findings of blood chemistry; Z88.5 Allergy status to narcotic agent; Z79.4 Long term (current) use of insulin; Z95.5 Presence of coronary angioplasty implant and graft; Z99.2 Dependence on renal dialysis; Z88.8 Allergy status to other drugs, medicaments and biological substances; Z90.49 Acquired absence of other specified parts of digestive tract; Z91.158 Patient's noncompliance with renal dialysis for other reason; Z89.512 Acquired absence of left leg below knee; Z89.511 Acquired absence of right leg below knee; Z28.310 Unvaccinated for COVID-19; Z79.899 Other long term (current) drug therapy; Z87.891 Personal history of nicotine dependence
CPT/HCPCS: 36415; 71045; 71250; 72100; 74176; 80048; 80053; 80076; 81001; 81003; 82607; 82947; 83690; 83735; 83880; 84100; 84484; 85025; 85610; 87040; 87070; 87077; 87086; 87088; 87186; 89050; 93005; 93306; 96361; 96374; 96375; 99285; G0378; J0692; J0696; J1100; J1170; J1644; J1815; J2001; J2405; J2550; J2920; J3010; J7040; Q0169; Q5106

== ENCOUNTER 2024-01-15 14:12 | Inpatient (IN) | payer BC ==
--- OUTSIDE RECORDS SUMMARY | 2024-01-15 14:15 | XMS REPORT | Clinical Summary ---
Author Name Unknown Organization [facility] Address [address] [place] [address] Care Team Providers Care Transportation Sales Consultant Name Role Phone Brooke Steward MD Primary Care Provider [phone] Allergies Active Allergy Reactions Criticality Noted Date [...] Overview: Added automatically from request for surgery [id number] Family history of malignant neoplasm of pancreas 07/05/2019 Overview: Added automatically from request for surgery [id number] Diarrhea 07/05/2019 Overview: Added automatically from request for surgery [id number] Family history of cancer of colon 07/05/2019 Overview: Added automatically from request for surgery [id number] Surgical History Surgery Date Site/Laterality Comments APPENDECTOMY 04/09/2019 - 05/09/2019 COLONOSCOPY 10/10/2014 - 10/09/2015 CHOLECYSTECTOMY 10/10/2003 - 10/09/2004 CO EDG US EXAM SURGICAL ALTER STOM DUODENUM/JEJUNUM [...] BRYANT Relation Name Status Comments Brother 1 RAJNAN LAZA Brother 2 JOE MATHEWS LAZA Brother [...] (#1) 06/26/1978 Influenza Vaccine 06/10/2023 Care Teams Transportation Sales Consultant Relationship Specialty Start Date End Date Brooke Steward MD [address] [place] [id number] PCP - General Gastroenterology, Hepatology and Nutrition 06/29/19
[2024-01-15] MEDS ORDERED: PROMETHAZINE INJ 25 MG/ML AMP ONE (15:17)
[2024-01-15] MEDS ORDERED: HYDROMORPHONE HCL 1 MG/ML INJ ONE (15:17)
[2024-01-15] MEDS ORDERED: FAMOTIDINE 20 MG/2 ML VIAL IV ONE (15:17)
[2024-01-15] MEDS ORDERED: Levofloxacin500mg IV 500 MG/100 ML BAG IV ONE (15:17)
[2024-01-15] MEDS ORDERED: NA CHLORIDE 0.9% 1,000 ML ONE (15:18)
[2024-01-15] MEDS ORDERED: CEFEPIME 1 GM/VIAL ONE (15:18)
[2024-01-15] MEDS ORDERED: NA CHLORIDE 0.9% 100 ML ONE (15:18)
--- NOTE | 2024-01-15 15:21 | RAD REPORT ---
EXAM DESCRIPTION: RAD - Chest Single View - 01/15/2024 3:09 pm CLINICAL HISTORY: Abdominal distention;Fever COMPARISON: Chest Single View dated 01/08/2024; Abdomen 1 View (KUB) dated 08/04/2023; Chest Single V iew dated 02/26/2022; Chest Single View dated 04/20/2021; Chest Abd Pelvis Wo Con dated 01/08/2024; Ches t Abd Pelvis Wo Con dated 01/15/2024 FINDINGS: Lines: None. Lungs: Probable atelectasis as result of the left pleural effusion . Pleural: Moderate left pleural effusion . Cardiac: Partially obscured. Mediastinum: Within normal limits. Bones: No acute fractures. Other: None IMPRESSION: Moderate left pleural effusion and likely underlying atelectasis. Reference subsequent C T. A moderate right effusion is also present but was not apparent radiographically.
--- NOTE | 2024-01-15 15:27 | RAD REPORT ---
EXAM DESCRIPTION: CTChest Abd Pelvis Wo Con - 01/15/2024 3:10 pm CLINICAL HISTORY: Abdominal distention;Fever COMPARISON: Chest Abd Pelvis Wo Con dated 01/08/2024; CTANGIO CHEST FOR PE dated 09/19/2008; CTANGIO CHEST FOR PE dated 04/06/2008 TECHNIQUE: CT of the chest, abdomen, and pelvis was performed. All CT scans are performed using dose optimization technique as appropriate and may include automated exposure control or mA/KV adjustment according to patient size. FINDINGS: Thorax: Chest Wall: No abnormal mass Lungs: Atelectasis as result of the effusions. Pleura: Moderate bilateral pleural effusions. Ashlyn/Mediastinum: No lymphadenopathy. Aorta/Pulmonary Arteries: Unremarkable Heart: Mild cardiomegaly. Coronary artery calcifications. Abdomen/Pelvis: Liver: No acute abnormality or suspicious lesions. Biliary: No biliary ductal dilatation. Cholecystectomy Stomach: No significant focal abnormality. Duodenum: No significant focal abnormality. Pancreas: No significant abnormality. Spleen: No significant abnormality. Adrenal: No suspicious lesions. Kidney/ureter: No hydronephrosis. No renal calculi. Atrophic kidneys. Retroperitoneum: No retroperitoneal adenopathy. Vascular: No aneurysm. Bowel: No significant focal abnormality. Peritoneum: Mild pneumoperitoneum with free fluid. Peritoneal dialysis catheter terminates in the rig ht lower quadrant. . Mild body wall edema. Bladder: Grossly unremarkable. Reproductive: No adnexal masses. Bones: No acute fracture. Other: n/a IMPRESSION: 1. No specific source of fever identified. Moderate pleural effusions which are unchange d with likely underlying atelectasis rather than pneumonia. 2. Small volume of intraperitoneal free air and free fluid likely related to presence of a peritoneal dialysis catheter. No loculated fluid collections identified.
[2024-01-15 15:35] LABS: Absolute Basophils 0.1 K/uL (0-0.5); Absolute Eosinophils 0.2 K/uL (0-0.5); Absolute Lymphocytes (CBC) 0.6 K/uL (0.7-4.9); Absolute Monocytes 0.7 K/uL (0.1-1.3); Absolute Neutrophil 7.5 K/uL (1.8-8.0); Basophils % 0.6 % (0-1.3); Eosinophils % 2.3 % (0-4.4); Hematocrit 29.9 % (36.0-45.0); Hemoglobin 9.6 g/dL (12.0-15.0); Lymphocytes % 6.1 % (15.3-44.8); MCH 29.9 pg (27.0-35.0); MCHC 32.2 g/dL (32.0-36.0); MPV 8.7 fL (7.6-11.3); Monocytes % 7.7 % (3.3-12.3); Neutrophils % 83.3 % (41.7-73.7); Platelets 319 thou/uL (152-406); RBC Red Blood Cell Count 3.22 M/uL (3.86-4.86); Red Cell Distribution Width 16.5 % (12.1-15.2)
[2024-01-15 15:41] LABS: PT Prothrombin Time 14.6 SECONDS (9.5-12.5); Protime INR 1.34
[2024-01-15 16:10] LABS: SARS-CoV-2 Antigen CONTROL BLUE LINE VIS/BG OK
[2024-01-15 16:11] LABS: SARS-CoV-2 Antigen Rapid Res Positive (Negative)
[2024-01-15 16:13] LABS: AST/SGOT 7 U/L (15-37); Albumin/Globulin Ratio 0.5 (1.1-1.8); Alkaline Phosphatase 76 U/L (45-117); Anion Gap 17.1 mEq/L (5.0-15.0); BUN Blood Urea Nitrogen 79 mg/dL (7-18); Bicarbonate 22 mEq/L (21-32); Bilirubin Direct 0.2 mg/dL (0-0.2); Bilirubin Indirect, Calculated 0.3 mg/dL (0.2-0.8); Bilirubin Total 0.5 mg/dL (0.2-1.0); Globulin 4.3 g/dL (2.3-3.5); Glomerular Filtration Rate 4 ml/min (=/>90); Glucose Level 173 mg/dL (74-106); Lipase 25 U/L (13-75); Potassium 5.1 mEq/L (3.5-5.1); Protein, Total 6.3 g/dL (6.4-8.2); Sodium Level 134 mEq/L (136-145); Troponin High Sensitivity 32.5 pg/mL (<58.9)
[2024-01-15 16:14] LABS: ALT/SGPT < 10 U/L (13-56); NT PRO-BNP > 175000 pg/mL (<125)
--- NOTE | 2024-01-15 16:22 | ER ---
Nurse's Notes [facility] Name: Keiry Umaña Age: 48 yrs Sex: Female : 1975 Arrival Date: 01/15/2024 Time: 14:12 Bed 15 Private MD: Diagnosis: Abdominal tenderness;Fever, unspecified;Type 1 diabetes mellitus with hyperglycemia;Dependence on renal dialysis-PD;Anemia in chronic kidney disease;Pleural effusion, not elsewhere classified-BILATERAL;SARS-associated coronavirus as the cause of diseases classified elsewhere Presentation: 01/14 14:19 Chief complaint: EMS states: Pt hx of peritoneal dialysis, d/c from hospital on ., ph c/o fever, discolored urine, abdominal pain, and cloudy fluid from abdomen during dialysis, TMAX 102, VSS. Coronavirus screen: Vaccine status: Patient reports receiving the 2nd dose of the covid vaccine. Ebola Screen: No symptoms or risks identified at this time. Initial Sepsis Screen: Does the patient meet any 2 criteria? No. Patient's initial sepsis screen is negative. Does the patient have a suspected source of infection? No. Patient's initial sepsis screen is negative. Risk Assessment: Do you want to hurt yourself or someone else? Patient reports no desire to harm self or others. 14:19 Method Of Arrival: EMS: [facility] ph 14:19 Acuity: CHERYL 3 ph 17:52 Onset of symptoms was January 13, 2024. cp4 CONSUMER RELATIONS SPECIALIST: 17:50 LMP 12/2023, unknown cp4 Historical: - Allergies: 14:29 KETAMINE; ph 14:29 Morphine; ph - PMHx: 14:29 Congestive heart failure; ESRD; Diabetes - IDDM; High Cholesterol; Hypertension; ph Hypothyroidism; PCOS; - PSHx: 14:29 Bilteral BKA; Appendectomy; Cholecystectomy; coronary stents (ys); ph - Immunization history:: Adult Immunizations unknown. - Infectious Disease History:: Denies. - Social history:: Smoking status: Patient denies any tobacco usage or history of. Screenin:37 [facility] ED Fall Risk Assessment (Adult) History of falling in the last 3 months, cp4 including since admission No falls in past 3 months (0 pts) Confusion or Disorientation No (0 pts) Intoxicated or Sedated No (0 pts) Impaired Gait No (0 pts) Mobility Assist Device Used No (0 pt) Altered Elimination No (0 pt) Score/Fall Risk Level 0 - 2 = Low Risk Oriented to surroundings, Maintained a safe environment, Assessed \T\ reinforced patient's understanding of fall precautions, Hourly rounding (assess needs \T\ fall precautionary measures) done. Abuse screen: Denies threats or abuse. Nutritional screening: No deficits noted. Tuberculosis screening: No symptoms or risk factors identified. Assessment: 15:37 General: Appears distressed, uncomfortable, Behavior is calm, cooperative, appropriate cp4 for age. Pain: Complains of pain in abdomen Pain does not radiate. Pain currently is 10 out of 10 on a pain scale. GI: Bowel sounds present X 4 quads. Abdomen is tender to palpation X 4 quads. Vital Signs: 14:19 BP 128 / 64; Pulse 90; Resp 20; Temp 99.5; Pulse Ox 97% on R/A; Weight 108.86 kg; ph 15:00 BP 128 / 64; Pulse 88; Resp 18; Pulse Ox 97% ; cp4 16:00 BP 119 / 62; Pulse 87; Resp 18; Pulse Ox 97% ; cp4 17:00 BP 125 / 76; Pulse 87; Resp 18; Pulse Ox 98% ; cp4 ED Course: 14:18 Patient arrived in ED. ph 14:29 Triage completed. ph 14:29 Arm band placed on Patient placed in an exam room, on a stretcher. ph 14:31 Joe Vyas MD is Attending Physician. sonali 15:11 XRAY Chest (1 view) In Process Unspecified. EDMS 15:12 CT Chest Abdomen Pelvis W/O Contrast In Process Unspecified. EDMS 15:18 Initial lab(s) drawn, by ut, sent to lab. First set of blood cultures drawn by ut, cp4 Second set of blood cultures drawn by ut, COVID swab sent to lab. Flu and/or RSV swab sent to lab. Inserted saline lock: 18 gauge in right EJ, using aseptic technique. Blood collected. 15:34 Jodi Mooney is Primary Nurse. cp4 15:35 Flu Sent. cp4 15:35 SARS RAPID Sent. cp4 15:35 Lactate w/ 2H reflex if indic. Sent. cp4 15:35 Blood Culture Adult (2) Sent. cp4 15:35 Lipase Sent. cp4 15:36 Basic Metabolic Panel Sent. cp4 15:36 LFT's Sent. cp4 15:36 Magnesium Sent. cp4 15:36 NT PRO-BNP Sent. cp4 15:36 PT-INR Sent. cp4 15:36 Troponin HS Sent. cp4 15:37 Bed in low position. Call light in reach. Side rails up X 1. Client placed on cp4 continuous cardiac and pulse oximetry monitoring. NIBP monitoring applied. display carver on. 15:37 No provider procedures requiring assistance completed. cp4 16:19 Jered Rosa is Hospitalizing Provider. sonali 16:48 Urinalysis w/ reflexes Sent. cp4 17:49 Patient admitted, IV remains in place. cp4 17:50 Provided Education on: admission. cp4 17:54 Larry cath inserted, using sterile technique, 16 Fr., by ut, balloon inflated, to cp4 gravity drainage, urine specimen collected. Administered Medications: 15:35 Drug: NS 0.9% IV 500 ml IV at bolus once Route: IV; Rate: bolus; Site: left jugular; cp4 16:48 Follow up: Response: No adverse reaction; IV Status: Completed infusion cp4 15:35 Drug: Cefepime IVPB 1 grams IVPB at 200 ml/hr once over 30 mins; (mix in NS 100 mL) cp4 Route: IVPB; Rate: 200 ml/hr; Infused Over: 30 mins; Site: left jugular; 16:18 Follow up: IV Status: Completed infusion cp4 16:18 Follow up: Response: No adverse reaction cp4 15:35 Drug: HYDROmorphone IVP 1 mg IVP once Route: IVP; Site: left jugular; cp4 16:48 Follow up: Response: No adverse reaction; Pain is decreased cp4 15:35 Drug: Promethazine IVP 12.5 mg IVP once Route: IVP; Site: left jugular; cp4 16:48 Follow up: Response: No adverse reaction cp4 15:35 Drug: Famotidine IVP 20 mg IVP once; dilute with 10 mL 0.9% NaCl; give over 2 minutes cp4 Route: IVP; Site: left jugular; 16:48 Follow up: Response: No adverse reaction cp4 16:18 Drug: levofloxacin IVPB 500 mg 100 ml IVPB once over 60 mins Volume: 100 ml; Route: cp4 IVPB; Infused Over: 60 mins; Site: left jugular; 17:25 Follow up: Response: No adverse reaction; IV Status: Completed infusion 4 16:49 Drug: NS 0.9% IV 1000 ml IV at 75 ml/hr continuous Route: IV; Rate: 75 ml/hr; Site: cp4 left jugular; 17:17 Drug: vancoMYCIN IVPB 1 grams IVPB once over 2 hrs Route: IVPB; Infused Over: 2 hrs; cp4 Site: left jugular; 17:36 Follow up: IV Status: Infusion continued upon admission cp4 Medication: 15:37 VIS not applicable for this client. cp4 Outcome: 16:21 Decision to Hospitalize by Provider. [facility] 17:44 Patient left the ED. 4 17:49 Admitted to Tele accompanied by nurse, via stretcher, 4 17:49 Condition: stable 17:49 Instructed on the need for admit, Demonstrated understanding of instructions, follow-up care, Signatures: Dispatcher [employer] Joe Winkler MD MD cha Hall, Patricia, RN RN Jodi Mohr cp4
--- NOTE | 2024-01-15 16:22 | EDPHYS ---
Physician Documentation [facility] Name: Keiry Umaña Age: 48 yrs Sex: Female : 1975 Arrival Date: 01/15/2024 Time: 14:12 Bed 15 Private MD: ED Physician Joe Vyas HPI: 01/14 16:02 This 48 yrs old Female presents to ER via EMS with complaints of Abdominal sonali Pain, Fever. 16:02 The patient reports fever, that was measured at 101 degrees Fahrenheit. Onset: The sonali symptoms/episode began/occurred 3 day(s) ago. Modifying factors: there are no obvious modifying factors. Associated signs and symptoms: Pertinent positives: abdominal pain, myalgias, nausea. Severity of symptoms: At their worst the symptoms were moderate in the emergency department the symptoms are unchanged. The patient has experienced similar episodes in the past, several times. 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 - Infectious Disease History:: Denies. - Social history:: Smoking status: Patient denies any tobacco usage or history of. ROS: 16:04 Eyes: Negative for injury, pain, redness, and discharge, ENT: Negative for injury, sonali pain, and discharge, Neck: Negative for injury, pain, and swelling, Cardiovascular: Negative for chest pain, palpitations, and edema, Respiratory: Negative for shortness of breath, cough, wheezing, and pleuritic chest pain, Back: Negative for injury and pain, MS/Extremity: Negative for injury and deformity, Skin: Negative for injury, rash, and discoloration, Neuro: Negative for headache, weakness, numbness, tingling, and seizure, Psych: Negative for depression, anxiety, suicide ideation, homicidal ideation, and hallucinations, Allergy/Immunology: Negative for hives, rash, and allergies, Endocrine: Negative for neck swelling, polydipsia, polyuria, polyphagia, and marked weight changes, Hematologic/Lymphatic: Negative for swollen nodes, abnormal bleeding, and unusual bruising, 16:04 Constitutional: Positive for body aches, chills, fatigue, fever, malaise, 16:04 Cardiovascular: Positive for palpitations, 16:04 Abdomen/GI: Positive for abdominal pain, nausea, abdominal cramps, abdominal distension, 16:04 Neuro: Positive for weakness, Exam: 16:04 Constitutional: This is a well developed, well nourished patient who is awake, alert, sonali and in no acute distress. Head/Face: Normocephalic, atraumatic. Eyes: Pupils equal round and reactive to light, extra-ocular motions intact. Lids and lashes normal. Conjunctiva and sclera are non-icteric and not injected. Cornea within normal limits. Periorbital areas with no swelling, redness, or edema. ENT: Nares patent. No nasal discharge, no septal abnormalities noted. Tympanic membranes are normal and external auditory canals are clear. Oropharynx with no redness, swelling, or masses, exudates, or evidence of obstruction, uvula midline. Mucous membranes moist. Neck: Trachea midline, no thyromegaly or masses palpated, and no cervical lymphadenopathy. Supple, full range of motion without nuchal rigidity, or vertebral point tenderness. No Meningismus. Chest/axilla: Normal chest wall appearance and motion. Nontender with no deformity. No lesions are appreciated. Cardiovascular: Regular rate and rhythm with a normal S1 and S2. No gallops, murmurs, or rubs. Normal PMI, no JVD. No pulse deficits. Respiratory: Lungs have equal breath sounds bilaterally, clear to auscultation and percussion. No rales, rhonchi or wheezes noted. No increased work of breathing, no retractions or nasal flaring. Back: No spinal tenderness. No costovertebral tenderness. Full range of motion. Skin: Warm, dry with normal turgor. Normal color with no rashes, no lesions, and no evidence of cellulitis. MS/ Extremity: Pulses equal, no cyanosis. Neurovascular intact. Full, normal range of motion. Neuro: Awake and alert, GCS 15, oriented to person, place, time, and situation. Cranial nerves II-XII grossly intact. Motor strength 5/5 in all extremities. Sensory grossly intact. Cerebellar exam normal. Normal gait. Psych: Awake, alert, with orientation to person, place and time. Behavior, mood, and affect are within normal limits. 16:04 ECG was reviewed by the Attending Physician. 16:04 Abdomen/GI: Inspection: distension, that is mild, Bowel sounds: normal, Palpation: moderate abdominal tenderness, in all quadrants, Liver: no appreciated palpable abnormalities, Hernia: not appreciated, 16:24 ECG was reviewed by the Attending Physician. [facility] Vital Signs: 14:19 BP 128 / 64; Pulse 90; Resp 20; Temp 99.5; Pulse Ox 97% on R/A; Weight 108.86 kg; ph 15:00 BP 128 / 64; Pulse 88; Resp 18; Pulse Ox 97% ; cp4 16:00 BP 119 / 62; Pulse 87; Resp 18; Pulse Ox 97% ; cp4 17:00 BP 125 / 76; Pulse 87; Resp 18; Pulse Ox 98% ; cp4 MDM: 14:31 Patient medically screened. sonali 16:11 Differential diagnosis: viral Infection, bacterial infection, URI, bronchitis, sonali pneumonia UTI, gastroenteritis, cholecystitis, Cholelithiasis, diverticulitis, gastritis. Differential Diagnosis altered mental status, sepsis, flu. Data reviewed: vital signs, nurses notes, EMS record, lab test result(s), EKG, radiologic studies, CT scan, plain films. Consideration of Admission/Observation Patient was admitted/placed on observation. Escalation of care including admission/observation considered. I considered the following discharge prescriptions or medication management in the emergency department Medications were administered in the Emergency Department. See MAR. Independent interpretation of the following test(s) in the Emergency Department EKG: See my EKG interpretation above. Test considered but Not performed: Ultrasound NO ABD USG. Care significantly affected by the following chronic conditions: Diabetes, Hypertension, Obesity, Chronic Kidney Disease, HYPOTHYROID , HIGH CHOLESTEROL. 01/14 14:54 Order name: Basic Metabolic Panel; Complete Time: 16:25 [facility] 01/14 14:54 Order name: CBC with Diff; Complete Time: 16:25 [facility] 01/14 14:54 Order name: LFT's; Complete Time: 16:25 01/14 14:54 Order name: Magnesium; Complete Time: 16:25 [facility] 01/14 14:54 Order name: NT PRO-BNP; Complete Time: 16:25 [facility] 01/14 14:54 Order name: PT-INR; Complete Time: 16:25 [facility] 01/14 14:54 Order name: Troponin HS; Complete Time: 16:25 [facility] 01/14 14:54 Order name: Lipase; Complete Time: 16:25 [facility] 01/14 14:54 Order name: Blood Culture Adult (2) [facility] 01/14 14:54 Order name: Lactate w/ 2H reflex if indic.; Complete Time: 16:25 [facility] 01/14 14:54 Order name: Urinalysis w/ reflexes [facility] 01/14 14:54 Order name: SARS RAPID; Complete Time: 16:25 [facility] 01/14 14:54 Order name: Flu; Complete Time: 17:29 [facility] 01/14 14:54 Order name: XRAY Chest (1 view); Complete Time: 16:25 [facility] 01/14 14:54 Order name: CT Chest Abdomen Pelvis W/O Contrast; Complete Time: 16:25 [facility] 01/14 16:26 Order name: CONS Physician Consult; Complete Time: 16:48 [facility] 01/14 14:54 Order name: Cardiac monitoring; Complete Time: 15:36 [facility] 01/14 14:54 Order name: EKG - Nurse/Tech; Complete Time: 16:30 [facility] 01/14 14:54 Order name: IV Saline Lock; Complete Time: 15:36 [facility] 01/14 14:54 Order name: Labs collected and sent; Complete Time: 15:36 [facility] 01/14 14:54 Order name: O2 Per Protocol; Complete Time: 15:36 [facility] 01/14 14:54 Order name: O2 Sat Monitoring; Complete Time: 15:36 [facility] EC:24 Rate is 80 beats/min. Rhythm is regular. QRS [place] is Normal. RI interval is normal. QRS sonali interval is normal. QT interval is normal. No Q waves. T waves are Inverted in leads II, III, aVF, V4, V5. No ST changes noted. Clinical impression: NSR w/ Non-specific ST/T Changes and No evidence of ischemia. Interpreted by me. Reviewed by me. Administered Medications: 15:35 Drug: NS 0.9% IV 500 ml IV at bolus once Route: IV; Rate: bolus; Site: left jugular; cp4 16:48 Follow up: Response: No adverse reaction; IV Status: Completed infusion cp4 15:35 Drug: Cefepime IVPB 1 grams IVPB at 200 ml/hr once over 30 mins; (mix in NS 100 mL) cp4 Route: IVPB; Rate: 200 ml/hr; Infused Over: 30 mins; Site: left jugular; 16:18 Follow up: IV Status: Completed infusion cp4 16:18 Follow up: Response: No adverse reaction cp4 15:35 Drug: HYDROmorphone IVP 1 mg IVP once Route: IVP; Site: left jugular; cp4 16:48 Follow up: Response: No adverse reaction; Pain is decreased cp4 15:35 Drug: Promethazine IVP 12.5 mg IVP once Route: IVP; Site: left jugular; cp4 16:48 Follow up: Response: No adverse reaction cp4 15:35 Drug: Famotidine IVP 20 mg IVP once; dilute with 10 mL 0.9% NaCl; give over 2 minutes cp4 Route: IVP; Site: left jugular; 16:48 Follow up: Response: No adverse reaction cp4 16:18 Drug: levofloxacin IVPB 500 mg 100 ml IVPB once over 60 mins Volume: 100 ml; Route: cp4 IVPB; Infused Over: 60 mins; Site: left jugular; 17:25 Follow up: Response: No adverse reaction; IV Status: Completed infusion cp4 16:49 Drug: NS 0.9% IV 1000 ml IV at 75 ml/hr continuous Route: IV; Rate: 75 ml/hr; Site: cp4 left jugular; 17:17 Drug: vancoMYCIN IVPB 1 grams IVPB once over 2 hrs Route: IVPB; Infused Over: 2 hrs; cp4 Site: left jugular; 17:36 Follow up: IV Status: Infusion continued upon admission cp4 Disposition Summary: 01/15/24 16:21 Hospitalization Ordered Notes: Hospitalization Status: Inpatient Admission sonali Provider: Jered Rosa cha Location: Telemetry/[facility]Sur (Inpatient) sonali Condition: Fair sonali Problem: new sonali Symptoms: have improved sonali Bed/Room Type: Standard [facility] Room Assignment: 204(01/15/24 16:52) bd Diagnosis - Abdominal tenderness sonali - Fever, unspecified sonali - Type 1 diabetes mellitus with hyperglycemia sonali - Dependence on renal dialysis - PD sonali - Anemia in chronic kidney disease sonali - Pleural effusion, not elsewhere classified - BILATERAL sonali - SARS-associated coronavirus as the cause of diseases classified elsewhere sonali Forms: - Medication Reconciliation Form sonali - SBAR form sonali - Leadership Thank You Letter [facility] 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 EDMS EDMS 14:55 14:55 CBC+H.LAB.BRZ ordered. EDMS EDMS 14:55 14:55 HEPATIC FUNCTION+C.LAB.BRZ ordered. EDMS EDMS 14:55 14:55 MAGNESIUM+C.LAB.BRZ ordered. EDMS EDMS 14:55 14:55 PROBNP+C.LAB.BRZ ordered. EDMS EDMS 14:55 14:55 PROTIME (+INR)+COAG.LAB.BRZ ordered. EDMS EDMS 14:55 14:55 Troponin High Sensitivity+C.LAB.BRZ ordered. EDMS EDMS 14:55 14:55 LIPASE+C.LAB.BRZ ordered. EDMS EDMS 14:55 14:55 BLOOD CULTURE*+BA.LAB.BRZ ordered. EDMS EDMS 14:55 14:55 LACTATE+C.LAB.BRZ ordered. EDMS EDMS 14:55 14:55 Urinalysis+U.LAB.BRZ ordered. EDMS EDMS 14:55 14:55 SARS-COV-2 Antigen Rapid+I.LAB.BRZ ordered. EDMS EDMS 14:55 14:55 Influenza Screen (A \T\ B)+BA.LAB.BRZ ordered. EDMS EDMS 14:55 14:55 Chest Abdomen Pelvis Wo Con+CT.RAD.BRZ ordered. EDMS EDMS 16:52 16:21 [facility]
--- NOTE | 2024-01-15 16:54 | P.HP ---
Patient History Date of Service: 01/15/24 Reason for admission: Fluid volume overload History of Present Illness: Keiry Umaña is a 48 year old female with Pmhx HTN, HLD, hypothyroidism, [place], DM on ozempic, ESRD on Peritoneal dialysis, and anxiety/depression who presents to the ED with chief complaint of abdominal pain associated with fever of 101 which began three days ago. . She was recently discharged for home antibiotic therapy through the PD catheter, she reports the first dose was to start on Tuesday. On examination, she is in severe abdominal pain, shivering, pale skin color. She reports seeing blood in her urine and in her PD catheter. Initial vitals BP 128/64, HR 98, rest 20, temp 99.5, pulse ox 97% on room air Significant laboratory evaluation H&H 9.6/29.9, neutrophils 83.3, sodium 134, anion gap 17.1, BUN/creatinine 79/10.5, GFR 4, serum glucose 173, BNP 175,000. Chest x-ray reports moderate left pleural effusion and likely underlying atelectasis. Reference subsequent CT A moderate right effusion is also present but was no apparent radiographically. CT chest abdomen pelvis reports " 1. no specific source of fever identified. Moderate pleural effusion was which are unchanged with likely underlying atelectasis rather than pneumonia. 2 small volume of intraperitoneal free air and free fluid likely related to presence of a peritoneal dialysis catheter. No loculated fluid collections identified." Keiry will be admitted to hospitalist service for further evaluation and treatment of fluid volume overload, COVID, peritoneal MRSA. Dr. Bueno and Dr. Alvarado consulted. Allergies ketamine Allergy (Severe, Verified 03/19/19 22:45) Anaphylaxis morphine Allergy (Intermediate, Verified 11/28/17 00:51) Anaphylaxis Home Medications: Biotin/Keratin [Biotin Plus Keratin Tablet] 1 tab PO DAILY 05/23/20 Cyanocobalamin (Vitamin B-12) [Vitamin B12] 1 tab PO DAILY 05/23/20 Dulaglutide [Trulicity] 1.5 mg SQ EVERY 7TH DAY 08/26/20 Iron 18 mg PO DAILY 09/08/21 Calcitrol [Rocaltrol*] 0.25 mcg PO Q48H #15 cap 09/10/21 Hydrocodone 5/APAP 325 [[place] 5/325*] 1 tab PO Q6H PRN #15 tab 09/10/21 Pantoprazole [Protonix Tab*] 40 mg PO DAILY #30 tab 09/10/21 Atorvastatin Calcium [Lipitor] 40 mg PO BEDTIME #30 tab 01/12/24 Bumetanide [Bumex*] 2 mg PO BIDL #120 tab 01/12/24 Docusate [Colace Cap*] 100 mg PO BID #60 cap 01/12/24 Hydrocodone 10/APAP 325 [[place] 10/325*] 1 tab PO Q6H PRN #15 tab 01/12/24 Promethazine Tab [Phenergan*] 25 mg PO Q8H PRN #30 tab 01/12/24 Sevelamer Carbonate [Renvela*] 1,600 mg PO TIDWM #180 tab 01/12/24 - Past Medical/Surgical History Diabetic: Yes -: Hypertension -: Hyperlipidemia -: IDDM -: Depression -: Peritoneal dialysis -: ESRD -: Appendectomy -: Cholecystectomy -: Bilateral BKAs -: Peritoneal dialysis catheter placement Psychosocial/ Personal History: Patient lives at home with her family and 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 Mother -: Heart disease, Diabetes, Stroke Notes: - Social History Smoking Status: Never smoker Alcohol use: No CD- Drugs: No Caffeine use: Yes Review of Systems General: Fever, Chills, Weakness Gastrointestinal: Nausea, Vomiting, Abdominal Pain Physical Examination - Physical Exam General: Alert, Oriented x3, Moderate distress HEENT: Atraumatic, Normocephalic, PERRLA Neck: Supple, 2+ carotid pulse no bruit Respiratory: Clear to auscultation bilaterally, Normal air movement Cardiovascular: Normal S1 S2, Abnormal pulses (tachycardic) Capillary refill: <2 Seconds Gastrointestinal: Hypoactive, Soft and benign, Tenderness Musculoskeletal: Other (no fingernails, bilateral amputation) Integumentary: Skin breakdown (multiple), Other (pale skin color) - Studies Laboratory Data (last 24 hrs) 01/15/24 01/15/24 01/15/24 15:03 15:03 15:03 WBC 9.00 Hgb 9.6 L Hct 29.9 L Plt Count 319 PT 14.6 H INR 1.34 Sodium 134 L Potassium 5.1 BUN 79 H Creatinine 10.50 H Glucose 173 H Magnesium 2.0 Total Bilirubin 0.5 AST 7 L ALT < 10 L Alkaline Phosphatase 76 Lipase 25 Microbiology Data (last 24 hrs): 01/15/24 15:30 Nasopharnyx Influenza Type A Antigen Screen - Final 01/15/24 15:30 Nasopharnyx Influenza Type B Antigen Screen - Final Assessment and Plan - Plan Assessment and plan ESRD on peritoneal dialysis MRSA on peritoneal fluid Abominal pain with Nausea/vomiting Fluid volume overload CHF Metabolic acidosis Hyponatremia -CT chest abdomen pelvis reports " 1. no specific source of fever identified. Moderate pleural effusion was which are unchanged with likely underlying atelectasis rather than pneumonia. 2 small volume of intraperitoneal free air and free fluid likely related to presence of a peritoneal dialysis catheter. No loculated fluid collections identified." -BUN/creatinine 79/10.5, GFR 4 -Potassium 5.1, sodium 134, anion gap 17 -Peritoneal dialysis -Dr. Bueno consulted -Dr. Alvarado consulted -BNP 175,000 -Dilaudid -Phenergen -Follow blood cultures COVID-positive Bilateral pleural effusion -Chest x-ray reports "moderate left pleural effusion and likely underlying atelectasis. Reference subsequent CT A moderate right effusion is also present but was no apparent radiographically." -Left shift neutrophils 83.3, WBC 9 -Isolation precautions Anemia of chronic disease -H/H 9.6/29.9 -Monitor in a.m. labs Diabetes mellitusIDDM -Serum glucose 173 -Accu-Check with sliding scale insulin -uses Ozempic at home History of hypertension History of HTN History of hypothyroidism -Continue home medications when available DVT PPx heparin Full code LOS 2 to 3 days Discharge Plan: Home Plan to discharge in: 72 Hours - Advance Directives Does patient have a Living Will: No Does patient have a Durable POA for Healthcare: No Time Spent Managing Pts Care (In Minutes): 50
[2024-01-15] MEDS ORDERED: VANCOMYCIN 1 GM/VIAL ONE (17:11)
[2024-01-15] MEDS ORDERED: NA CHLORIDE 0.9% 250 ML ONE (17:11)
[2024-01-15] MEDS ORDERED: ACETAMINOPHEN 500 MG TAB PO PRN (17:39)
[2024-01-15] MEDS ORDERED: GLUCAGON 1 MG/VIAL IM PRN (17:48)
[2024-01-15] MEDS ORDERED: D50W 25 GM/50 ML SYRINGE IV PRN (17:48)
[2024-01-15 17:55] VITALS: BMI 32.5
[2024-01-15 17:57] LABS: Specific Gravity 1.012 (1.005-1.030); Sqamous Epithelial None Seen /HPF (None Seen); Urine Bacteria <20 /HPF (<20); Urine Bilirubin NEGATIVE (Negative); Urine Blood 2+ (Negative); Urine Clarity Extremely Turbid (Clear); Urine Color Light-Orange (Yellow); Urine Culture Reflex Order REFLEXED; Urine Glucose NEGATIVE (Negative); Urine Ketones NEGATIVE (Negative); Urine Microscopic Reflex YN ORDER UMIC; Urine Nitrite NEGATIVE (Negative); Urine Protein 2+ (Negative); Urine RBC 21-50 /HPF (None Seen); Urine Urobilinogen Normal (Normal); Urine WBC >50 /HPF (<5); Urine pH 6.5 (5.0-7.0)
[2024-01-15] MEDS ORDERED: D10W 125 ML IV PRN (17:59)
[2024-01-15] MEDS: PROMETHAZINE INJ 25 MG/ML AMP IV PRN (18:17)
[2024-01-15] MEDS: HEPARIN 5000 UNIT/ML 1 ML VIAL SQ SCH (18:17)
[2024-01-15] MEDS: HYDROMORPHONE HCL 1 MG/ML INJ IV PRN ×2 (18:17→22:00)
--- NOTE | 2024-01-15 19:12 | CON ---
Date of Consultation: 01/15/2024 History Of Present Illness: Patient is seen in Emergency Room, discussed with Dr. Joe Vyas. A lso discussed with admitting physician, Dr. Rosa. The patient is a 48-year-old female with history of peritoneal dialysis, presented to the hospital after having a purulent discharge and bloody urine . The patient was recently admitted with the question of urinary tract infection. Has been on intra peritoneal antibiotics, but apparently has had a change in condition and seems to be developing urina ry tract infection recurrence despite antibiotics outpatient. Needs IV antibiotics. Also been havin g some suprapubic tenderness. On evaluation, patient does not seem to have diffuse tenderness in the abdomen. Does not seem to have any rebound, guarding, but does seem uncomfortable and does have claudia e bloody and purulent discharge on the urine. Her proBNP was elevated at 175,000, but she does not h ave much edema. She is able to breathe comfortably. Her COVID test has also come back positive. He r breathing, however, is comfortable. She does not have any difficulty with her breathing currently and does not have significant edema, either. She does have bilateral amputations and uses prosthesis . Past Medical History: As stated, the patient is on dialysis. The patient has history of hypertensio n, peripheral vascular disease, amputations. Recent urinary tract infection, was on antibiotics for that. Medications: Reviewed. Allergies: TO KETAMINE, MORPHINE, EXTERNAL ALLERGIES. Physical Examination: Vitals: Reasonably stable with blood pressure systolic 120 to 130, her pulse is around 70, respirati ons around 14 and comfortable. Lungs: Clear to auscultation. Abdomen: Soft. Extremities: Revealed no edema. Patient has bilateral amputations. She does have some suprapubic d iscomfort. Medications: Reviewed. The patient has gotten cefepime. She has also gotten Levaquin, also gram of vancomycin, and also patient has been on vancomycin IV. Patient is getting heparin for DVT prophyla xis. She got fluids with about 500 cc bolus of normal saline. Laboratory Data: Reviewed. WBC count is 9, hemoglobin 9.6, hematocrit 29.9, platelet count of 319. Chemistries: Sodium 134, potassium 5.1, chloride 100, bicarb is 22, BUN is 79, creatinine 10.5, deangelo cium 7.6. Lactic acid level is 1.5, albumin about 2.0, corrected calcium is close to normal. ProBNP is at about 175,000. Lipase 25. Albumin 2. Liver enzymes seemed reasonable with AST at 7, ALT les s than 10, alkaline phosphatase at 76. Troponin I high sensitivity is within normal range. Assessment And Plan: Patient with question of urinary tract infection in the setting of recent infec tion. Patient has been on antibiotics. Has been evaluated by Dr. Alvarado's Infectious Disease team a s well. Consult Infectious Disease again. Start with broad-spectrum antibiotics. Await urine cultu re and then adjust as needed. The patient does not seem to have significant belly tenderness. The P D catheter site looks clean and no drainage. Does not seem to be having peritonitis at least at this time. Blood pressure is stable. Patient does not seem to be in any hemodynamic danger. Currently, her blood pressure is in 120 to 130 range. Her pulse is stable at about 70 to 80 and regular. The patient is alert, awake, able to answer questions. Will need IV antibiotics and need adjustment of t he same depending on her culture results. Also can get 2 blood cultures done to see if there is any evidence of bacteremia. The patient can use her home treatment for peritoneal dialysis and bring her own machine as peritoneal dialysis nurse is not available at this hospital. The patient is aware of that. I also discussed with the peritoneal dialysis nurse from her home unit and discussed plan markus Vyas, Emergency Room and also Dr. Rosa, hospitalist. /CHECO Voice ID: [id number] Report ID: [id number]
[2024-01-15] MEDS: HYDROMORPHONE HCL 1 MG/ML INJ ONE (19:31)
[2024-01-15] MEDS: HYDROMORPHONE HCL 1 MG/ML INJ IV ONE (19:32)
[2024-01-15] MEDS: INSULIN REGULAR (HUMAN) 100 UNIT/ML SQ SCH (20:39)
[2024-01-16] MEDS ORDERED: SODIUM CHLORIDE 0.9% 10ML INJ IV PRN (02:50)
[2024-01-16] MEDS: PROMETHAZINE INJ 25 MG/ML AMP IV ONE (02:58)
[2024-01-16] MEDS: PANTOPRAZOLE 40 MG INJ IVP ONE (02:58)
[2024-01-16 04:12] LABS: Absolute Lymphocytes (CBC) 0.4 K/uL (0.7-4.9); Absolute Monocytes 0.7 K/uL (0.1-1.3); Absolute Neutrophil 4.9 K/uL (1.8-8.0); Basophils % 0.7 % (0-1.3); Eosinophils % 0.7 % (0-4.4); Hematocrit 25.7 % (36.0-45.0); Hemoglobin 8.4 g/dL (12.0-15.0); MCH 30.2 pg (27.0-35.0); MCHC 32.5 g/dL (32.0-36.0); MCV 92.9 fL (80-100); MPV 9.1 fL (7.6-11.3); Monocytes % 11.9 % (3.3-12.3); Neutrophils % 80.7 % (41.7-73.7); Nucleated Red Blood Cells % 0.1 % (0-0); Platelets 253 thou/uL (152-406); RBC Red Blood Cell Count 2.77 M/uL (3.86-4.86); Red Cell Distribution Width 17.5 % (12.1-15.2)
[2024-01-16 04:35] LABS: Anion Gap 17.8 mEq/L (5.0-15.0); Magnesium 1.8 mg/dL (1.6-2.4); Phosphorus 8.3 mg/dL (2.5-4.9); Potassium 5.8 mEq/L (3.5-5.1)
--- NOTE | 2024-01-16 06:46 | P.PN ---
Date of Service: 01/16/24 Subjective Awake and feeling better after sleeping well last night ROS 10 point ROS as noted above, otherwise negative Physical Exam General: NAD, AAO x 3, calm HEENT: Atraumatic, Normocephalic, PERRLA Neck: Supple, 2+ carotid pulse no bruit Respiratory: Clear to auscultation bilaterally, Normal air movement Cardiovascular: Normal S1 S2, NSR, no murmur noted Capillary refill: <2 Seconds Gastrointestinal: Hypoactive, Soft and benign on palpation, Tenderness, distended Musculoskeletal: Other (no fingernails, bilateral amputation) Integumentary: Skin breakdown (multiple), Other (pale skin color) Vitals Reviewed Problem list ESRD on peritoneal dialysis MRSA on peritoneal fluid Abominal pain with Nausea/vomiting Fluid volume overload CHF Metabolic acidosis Hyponatremia COVID-positive Bilateral pleural effusion Anemia of chronic disease Diabetes mellitusIDDM History of hypertension History of HTN History of Hypothyroidism Assessment and Plan ESRD on peritoneal dialysis MRSA on peritoneal fluid Abominal pain with Nausea/vomiting Fluid volume overload CHF Metabolic acidosis Hyponatremia -CT chest abdomen pelvis reports " 1. no specific source of fever identified. Moderate pleural effusion was which are unchanged with likely underlying atelectasis rather than pneumonia. 2 small volume of intraperitoneal free air and free fluid likely related to presence of a peritoneal dialysis catheter. No loculated fluid collections identified." -BUN/creatinine 80/10.2, GFR 4 -Potassium 5.8, sodium 134, anion gap 17.8 -Continue Peritoneal dialysis -Dr. Bueno consulted -Dr. Alvarado consulted- Vanc IV -BNP 175,000 -Dilaudid -Phenergen -Follow blood cultures COVID-positive Bilateral pleural effusion -Chest x-ray reports "moderate left pleural effusion and likely underlying atelectasis. Reference subsequent CT A moderate right effusion is also present but was no apparent radiographically." -Left shift neutrophils 80.7, WBC 6.10 -Isolation precautions -Repeat Covid test showing positive 01/15 UTI -ID recommend Cefepime Anemia of chronic disease -H/H 8.4/25.7 -Monitor in a.m. labs Diabetes mellitusIDDM -Serum glucose 119 -Accu-Check with sliding scale insulin -uses Ozempic at home History of hypertension History of HTN History of Hypothyroidism -Continue home medications when available DVT PPx heparin Full code LOS 2 to 3 days
--- NOTE | 2024-01-16 08:51 | P.CNS ---
Date of Consult: 01/16/24 Reason for Consult: fever, covid Chief Complaint: Fluid volume overload History of Present Illness: Patient is a 48-year-old female with a Pmhx HTN, HLD, hypothyroidism, [place], DM on ozempic, ESRD on Peritoneal dialysis, and anxiety/depression who presents to the ED with chief complaint of abdominal pain associated with fever of 101 which began three days ago. Patient was recently hospitalized and discharged home on IV antibiotics for urinary tract infection and suspected peritoneal infection for which she was to receive vancomycin via PD cath. Allergies ketamine Allergy (Severe, Verified 03/19/19 22:45) Anaphylaxis morphine Allergy (Intermediate, Verified 11/28/17 00:51) Anaphylaxis Home medications list reviewed: Yes Home Medications: Atorvastatin Calcium [Lipitor] 40 mg PO BEDTIME #30 tab 01/12/24 Bumetanide [Bumex*] 2 mg PO BIDL #120 tab 01/12/24 Docusate [Colace Cap*] 100 mg PO BID #60 cap 01/12/24 Hydrocodone 10/APAP 325 [[place] 10/325*] 1 tab PO Q6H PRN #15 tab 01/12/24 Promethazine Tab [Phenergan*] 25 mg PO Q8H PRN #30 tab 01/12/24 Sevelamer Carbonate [Renvela*] 1,600 mg PO TIDWM #180 tab 01/12/24 Apixaban [Eliquis] 5 mg PO BID 01/16/24 Carvedilol [Coreg] 25 mg PO BID 01/16/24 Clopidogrel Bisulfate [Plavix] 75 mg PO DAILY 01/16/24 Doxepin HCl 6 mg PO BEDTIME 01/16/24 Levothyroxine [Synthroid] 50 mcg PO [id number] 01/16/24 Sacubitril/Valsartan [Entresto 49 mg-51 mg Tablet] 1 tab PO BID 01/16/24 Sertraline [Zoloft] 100 mg PO DAILY 01/16/24 - Past Medical/Surgical History Diabetic: Yes -: Hypertension -: Hyperlipidemia -: IDDM -: Depression -: Peritoneal dialysis -: ESRD -: Appendectomy -: Cholecystectomy -: Bilateral BKAs -: Peritoneal dialysis catheter placement Psychosocial/ Personal History: 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 Mother Medical History: Heart disease, Diabetes, Stroke Notes: - Social History Smoking Status: Never smoker Alcohol use: No CD- Drugs: No Caffeine use: Yes Place of Residence: Home Review of Systems General: Weakness Gastrointestinal: Nausea, Abdominal Pain Genitourinary: Frequency Physical Examination Temp Pulse Resp BP Pulse Ox 97.4 F 93 H 18 126/68 100 01/16/24 04:00 01/16/24 04:00 01/16/24 05:44 01/16/24 04:00 01/16/24 04:00 General: Alert, In no apparent distress, Oriented x3 HEENT: Atraumatic, Normocephalic Respiratory: Clear to auscultation bilaterally, Normal air movement, Other (unlabored respirations on room air) Cardiovascular: Regular rate/rhythm, Edema Gastrointestinal: Normal bowel sounds, Non-distended, Tenderness (diffuse) Musculoskeletal: Other (bilateral BKA) Laboratory Data - Reviewed Microbiology Data - Reviewed Imagings Data: - Reviewed Conclusions/Impression: Problem List ESRD on peritoneal dialysis MRSA of peritoneal fluid COVID-positive Fluid volume overload CHF Metabolic acidosis Hyponatremia Bilateral pleural effusion Anemia of chronic disease Diabetes mellitus bilateral BKA MRSA of peritoneal fluid -CT chest abdomen pelvis reports " 1. no specific source of fever identified. Moderate pleural effusion was which are unchanged with likely underlying atelectasis rather than pneumonia. 2 small volume of intraperitoneal free air and free fluid likely related to presence of a peritoneal dialysis catheter. No loculated fluid collections identified." - MRSA of peritoneal fluid on culture from 01/07 -Recently discharged home to complete a minimum of 2 weeks on vancomycin. - Blood cultures 01/14: Pending Urinary Tract Infection - Recent hospitalization being treated with Cefepime for urine culture obtained from outside laboratory on 01/02: Klebsiella oxytoca, Escherichia coli and Serratia liquefaciens to complete 7 days. - Patient now returning with cloudy, foul smelling urine - urine culture 01/14: pending COVID-positive -Tested positive for COVID 01/14 - negative influenza a and B Recommendaitons - MRSA peritoneal fluid: continue with vancomycin IV, dosed per ESRD. Pharmacy and nephrology following. - UTI: start on Cefepime IV, renally dose. Follow up with urine culture results. Will adjust antibiotics as appropriate. - Covid: continue supportive care. - Monitor CBC, BMP and fever trends, vanco troughs Case discussed with Rakel Carroll.
[2024-01-16] MEDS: SOD POLYSTYREN SUL 15 GM/60 ML UCUP PO ONE (12:04)
[2024-01-16] MEDS: CALCIUM ACETATE 667 MG TAB PO SCH (12:04)
--- NOTE | 2024-01-16 12:42 | EKG ---
Test Date: 2024-01-15 Test Time: 16:19:57 [employer]: RAFAEL MEASUREMENT RESULTS: Intervals: Rate: 80 [place]: 126 QRSD: 100 QT: 436 QTc: 502 [place]: P: 59 NJ: 126 QRS: 48 T: -28 INTERPRETIVE STATEMENTS: Normal sinus rhythm Low voltage QRS Nonspecific T wave abnormality Prolonged QT Abnormal ECG Compared to ECG 01/08/2024 01:56:32 Low QRS voltage now present T-wave abnormality now present Prolonged QT interval now present Myocardial infarct finding no longer present Electronically Signed On 01-16-24 12:40:19 CDT by Angel Montelongo
[2024-01-16] MEDS: BUMETANIDE 1 MG TABLET PO SCH (13:03)
[2024-01-16] MEDS: HYDROMORPHONE HCL 2 MG/ML inj IV PRN (13:04)
[2024-01-16] MEDS: CEFEPIME 1 GM in NA CHLORIDE 0.9% 100 ML IV SCH (14:41)
[2024-01-16] MEDS ORDERED: VANCOMYCIN 1 GM in NA CHLORIDE 0.9% 250 ML IVPB SCH (15:00)
[2024-01-16 15:27] LABS: INFLUENZA A NAA NEGATIVE (NEGATIVE)
[2024-01-16 15:37] LABS: SARS-COV-2 RT PCR POSITIVE (NEGATIVE)
[2024-01-16] MEDS: DOCUSATE NA 100 MG CAP PO SCH (19:59)
--- NOTE | 2024-01-16 21:16 | P.PN ---
Date of Service: 01/16/24 Vital Signs Temp Pulse Resp BP Pulse Ox 97.5 F 79 18 114/69 99 01/16/24 16:00 01/16/24 16:00 01/16/24 21:00 01/16/24 16:00 01/16/24 21:00 Medications Acetaminophen (Acetaminophen 500 Mg Tab) 500 mg PO Q4H PRN PRN Reason: TEMP > 100' F Bumetanide (Bumetanide 1 Mg Tablet) 2 mg PO TID [facility] Last Admin: 01/16/24 19:59 Dose: 2 mg Calcium Acetate (Calcium Acetate 667 Mg Tab) 1,334 mg PO TIDWM [facility] Last Admin: 01/16/24 17:27 Dose: 1,334 mg Docusate Sodium (Docusate Na 100 Mg Cap) 100 mg PO BID [facility] Last Admin: 01/16/24 19:59 Dose: 100 mg Glucagon (Glucagon 1 Mg/Vial) 1 mg IM 1X PRN; Protocol PRN Reason: HYPOGLYCEMIA Heparin Sodium (Porcine) (Heparin 5000 Unit/Ml 1 Ml Vial) 5,000 unit SQ Q8HR [facility] Last Admin: 01/16/24 17:27 Dose: 5,000 unit Hydromorphone HCl (Hydromorphone Hcl 2 Mg/Ml Inj) 2 mg IV Q4H PRN PRN Reason: Pain scale 8-10 (Severe) Last Admin: 01/16/24 21:00 Dose: 2 mg Dextrose (Dextrose 10% Water Iv Soln.) 125 mls @ 0 mls/hr IV PRN PRN; Protocol PRN Reason: HYPOGLYCEMIA Cefepime HCl 1 gm/ Sodium (Chloride) 100 mls @ 200 mls/hr IV Q24H [facility] Last Admin: 01/16/24 14:41 Dose: 100 mls Vancomycin HCl 1 gm/ Sodium (Chloride) 250 mls @ 250 mls/hr IVPB Q72H [facility] Insulin Human Regular (Insulin Regular (Human) 100 Unit/Ml) 0 unit SQ ACHS [facility]; Protocol Last Admin: 01/16/24 20:30 Dose: Not Given Promethazine HCl (Promethazine Inj 25 Mg/Ml Amp) 25 mg IV Q4H PRN PRN Reason: NAUSEA / VOMITING Last Admin: 01/16/24 21:00 Dose: 25 mg Sodium Chloride (Sodium Chloride 0.9% 10ml Inj) 10 ml IV UD PRN PRN Reason: Diluant Microbiology Results 01/15/24 15:31 Blood - Blood Aerobic Blood Culture - Preliminary No growth in 24 hours. 01/15/24 15:31 Blood - Blood Anaerobic Blood Culture - Preliminary No growth in 24 hours. 01/15/24 15:03 Blood - Blood Aerobic Blood Culture - Preliminary No growth in 24 hours. 01/15/24 15:03 Blood - Blood Anaerobic Blood Culture - Preliminary No growth in 24 hours. 01/15/24 15:30 Nasopharnyx Influenza Type A Antigen Screen - Final 01/15/24 15:30 Nasopharnyx Influenza Type B Antigen Screen - Final Assessment/ Plan: Nephrology No dyspnea No chest pain Persistent edema No acute events overnight Vitals, medications, blood work and imaging reviewed in the chart NAD. MMM. NCAT. Normal Respiratory Effort. S1S2. ND Abd. PD Cath. No C/C. Hip Edema 1-2+. No rash. AAO. Normal speech. Larry with sediment ESRD on PD -PD as ordered Hyperkalemia -Kayexalate X1 HTN with CKD/ CHF -Monitor BP Systolic CHF, A/C BL Pleural Effusion -Start Bumex DM II with CKD & Polyneuropathy -RISS Anemia in CKD -Retacrit X1 CKD MBD -Start Phoslo Acute infective cystitis with hematuria -Continue abx -ID following Case reviewed with Dr. Rosa
[2024-01-17 03:41] LABS: Absolute Eosinophils 0.1 K/uL (0-0.5); Absolute Lymphocytes (CBC) 0.6 K/uL (0.7-4.9); Absolute Neutrophil 3.9 K/uL (1.8-8.0); Basophils % 0.6 % (0-1.3); Eosinophils % 1.6 % (0-4.4); Lymphocytes % 11.2 % (15.3-44.8); MCH 30.2 pg (27.0-35.0); MCHC 32.2 g/dL (32.0-36.0); MCV 93.9 fL (80-100); MPV 8.8 fL (7.6-11.3); Monocytes % 17.4 % (3.3-12.3); Neutrophils % 69.2 % (41.7-73.7); Nucleated Red Blood Cells % 0.1 % (0-0); Platelets 241 thou/uL (152-406); RBC Red Blood Cell Count 2.99 M/uL (3.86-4.86); Red Cell Distribution Width 17.4 % (12.1-15.2)
[2024-01-17 04:33] LABS: Anion Gap 17.2 mEq/L (5.0-15.0); Magnesium 1.8 mg/dL (1.6-2.4); Phosphorus 8.3 mg/dL (2.5-4.9)
[2024-01-17 04:35] LABS: Potassium 6.2 mEq/L (3.5-5.1)
[2024-01-17 04:56] LABS: Band Neutrophils 5 % (0-1); Differential Total Cells Count 100; Eosinophils 5 % (0-3); Lymphocytes 14 % (15-42); Monocytes 15 % (0-10); Reactive Lymphocytes 2 %; Segmented Neutrophils 59 % (40-80)
[2024-01-17 04:57] LABS: Blood Morphology Comment NOT SEEN (NOT SEEN); Platelet Estimate ADEQ
[2024-01-17] MEDS: SOD POLYSTYREN SUL 15 GM/60 ML UCUP PO ONE (05:04)
--- NOTE | 2024-01-17 08:52 | P.PN ---
Date of Service: 01/17/24 Infectious Disease Progress Note Chief Complaint: Fluid volume overload Subjective: Patient seen and examined at bedside. + nausea + diffuse abdominal tenderness + generalized weakness Physical Examination Temp Pulse Resp BP Pulse Ox 98.3 F 84 16 99/55 L 99 01/17/24 04:00 01/17/24 04:00 01/17/24 08:24 01/17/24 04:00 01/17/24 04:39 General: Alert, In no apparent distress, Oriented x3 HEENT: Atraumatic, Normocephalic Respiratory: Clear to auscultation bilaterally, Normal air movement. Unlabored respirations on room air Cardiovascular: Regular rate/rhythm. Edema Gastrointestinal: Normal bowel sounds, Non-distended. Diffuse abdominal tenderness. Skin: Abdomen with peritoneal dialysis catheters, no erythema or purulent drainage. Musculoskeletal: bilateral BKA Laboratory Data - Reviewed Microbiology Data - Reviewed Imagings Data: - Reviewed Assessment and Plan Problem List ESRD on peritoneal dialysis MRSA of peritoneal fluid COVID-positive Fluid volume overload CHF Metabolic acidosis Hyponatremia Bilateral pleural effusion Anemia of chronic disease Diabetes mellitus bilateral BKA MRSA of peritoneal fluid -CT chest abdomen pelvis reports " 1. no specific source of fever identified. Moderate pleural effusion was which are unchanged with likely underlying atelectasis rather than pneumonia. 2 small volume of intraperitoneal free air and free fluid likely related to presence of a peritoneal dialysis catheter. No loculated fluid collections identified." - MRSA of peritoneal fluid on culture from 01/07 -Recently discharged home to complete a minimum of 2 weeks on vancomycin. - Blood cultures 01/14: no growth to date Urinary Tract Infection - Recent hospitalization being treated with Cefepime for urine culture obtained from outside laboratory on 01/02: Klebsiella oxytoca, Escherichia coli and Serratia liquefaciens to complete 7 days. - Patient now returning with cloudy, foul smelling urine - urine culture 01/14: no growth to date COVID-positive -Tested positive for COVID 01/14 - negative influenza a and B - denies any cough, shortness of breath, wheezing, chest pain Recommendaitons - MRSA peritoneal fluid: continue with vancomycin IV, dosed per ESRD. Pharmacy and nephrology following. - UTI: start on Cefepime IV, renally dose. Follow up with urine culture results. Will adjust antibiotics as appropriate. - Covid: continue supportive care. - Monitor CBC, BMP and fever trends, vanco troughs Case discussed with Jimy Carroll
[2024-01-17 11:57] LABS: Anion Gap 16.8 mEq/L (5.0-15.0); Potassium 5.8 mEq/L (3.5-5.1)
[2024-01-17] MEDS: EPOETIN ALFA-EPBX 10,000 UNIT/ML VIAL SQ SCH (12:35)
[2024-01-17] MEDS: PANTOPRAZOLE 40 MG INJ IVP SCH (13:00)
--- NOTE | 2024-01-17 13:23 | P.PN ---
Date of Service: 01/17/24 Subjective Still with nausea/vomiting reporting generalized abd pain C/O lower extremity edema preventing her from putting on prosthesis ROS 10 point ROS as noted above, otherwise negative Physical Exam General: NAD, AAO x 3, calm HEENT: Atraumatic, Normocephalic, PERRLA Neck: Supple, 2+ carotid pulse no bruit Respiratory: Clear to auscultation bilaterally, Normal air movement Cardiovascular: Normal S1 S2, NSR, no murmur noted Capillary refill: <2 Seconds Gastrointestinal: Hypoactive, Soft and benign on palpation, Tenderness, distended Musculoskeletal: Other (no fingernails, bilateral BKA) Integumentary: Skin breakdown (multiple), Other (pale skin color) Vitals Reviewed Problem list ESRD on peritoneal dialysis Acute on chronic systolic congestive heart failure Anasarca, bilateral pleural effusions Hyponatremia-mild Hyperkalemia Peritoneal fluid culture positive for MRSA-01/07 Abominal pain with Nausea/vomiting COVID-19 positive Anemia of chronic disease Diabetes mellitusIDDM History of hypertension History of HTN History of Hypothyroidism Plan ESRD on peritoneal dialysis Acute on chronic systolic congestive heart failure Anasarca, bilateral pleural effusions Hyponatremia-mild Hyperkalemia Given dose of Kayexalate x 1 this morning, repeat potassium slightly improved Continue peritoneal dialysis Patient had been using just gravity method overnight since has been here Recommended patient bring in her peritoneal dialysis machine when she plans on doing Nephrology has increased diuresis with Bumex Monitor renal function daily Peritoneal fluid culture positive for MRSA-01/07 Blood cultures no growth Continue vancomycin/cefepime Infectious disease following Needed PICC line at discharge-will need to discuss further with nephrology Abominal pain with Nausea/vomiting As needed pain medications and antiemetics Reports she feels as if she is having some reflux-added Protonix 01/16 COVID-19 positive Breathing well on room air Supportive care Anemia of chronic disease Monitor H&H daily Diabetes mellitusIDDM ACHS Accu-Chek, sliding scale insulin History of hypertension History of HTN History of Hypothyroidism Continue home medications DVT PPx heparin Full code LOS 2 to 3 days
[2024-01-17] MEDS ORDERED: VANCOMYCIN 1 GM in NA CHLORIDE 0.9% 250 ML IVPB SCH (15:00)
--- NOTE | 2024-01-17 21:13 | P.PN ---
Date of Service: 01/17/24 Vital Signs Temp Pulse Resp BP Pulse Ox 97.4 F 79 15 148/90 H 98 01/17/24 20:00 01/17/24 20:00 01/17/24 20:14 01/17/24 20:00 01/17/24 20:14 Medications Acetaminophen (Acetaminophen 500 Mg Tab) 500 mg PO Q4H PRN PRN Reason: TEMP > 100' F Bumetanide (Bumetanide 1 Mg Tablet) 2 mg PO TID [facility] Last Admin: 01/17/24 20:14 Dose: 2 mg Calcium Acetate (Calcium Acetate 667 Mg Tab) 1,334 mg PO TIDWM [facility] Last Admin: 01/17/24 16:33 Dose: 1,334 mg Docusate Sodium (Docusate Na 100 Mg Cap) 100 mg PO BID [facility] Last Admin: 01/17/24 20:14 Dose: 100 mg Glucagon (Glucagon 1 Mg/Vial) 1 mg IM 1X PRN; Protocol PRN Reason: HYPOGLYCEMIA Heparin Sodium (Porcine) (Heparin 5000 Unit/Ml 1 Ml Vial) 5,000 unit SQ Q8HR [facility] Last Admin: 01/17/24 16:32 Dose: 5,000 unit Hydromorphone HCl (Hydromorphone Hcl 2 Mg/Ml Inj) 2 mg IV Q4H PRN PRN Reason: Pain scale 8-10 (Severe) Last Admin: 01/17/24 20:14 Dose: 2 mg Dextrose (Dextrose 10% Water Iv Soln.) 125 mls @ 0 mls/hr IV PRN PRN; Protocol PRN Reason: HYPOGLYCEMIA Cefepime HCl 1 gm/ Sodium (Chloride) 100 mls @ 200 mls/hr IV Q24H [facility] Last Admin: 01/17/24 16:30 Dose: 100 mls Vancomycin HCl 1 gm/ Sodium (Chloride) 250 mls @ 250 mls/hr IVPB Q72H [facility] Insulin Human Regular (Insulin Regular (Human) 100 Unit/Ml) 0 unit SQ ACHS [facility]; Protocol Last Admin: 01/17/24 20:26 Dose: Not Given Pantoprazole Sodium (Pantoprazole 40 Mg Inj) 40 mg IVP Q12HR [facility]; Protocol Last Admin: 01/17/24 20:14 Dose: 40 mg Promethazine HCl (Promethazine Inj 25 Mg/Ml Amp) 25 mg IV Q4H PRN PRN Reason: NAUSEA / VOMITING Last Admin: 01/17/24 20:14 Dose: 25 mg Sodium Chloride (Sodium Chloride 0.9% 10ml Inj) 10 ml IV UD PRN PRN Reason: Diluant Lab Results (last 24 hrs) 01/17/24 11:19: Sodium 132 L, Potassium 5.8 H, Chloride 100, Carbon Dioxide 21, Anion Gap 16.8 H, BUN 91 H, Creatinine 11.10 H, Est GFR (CKD-EPI) 4 L, Glucose 105, Calcium 7.8 L 01/17/24 07:57: POC Glucose 97 01/17/24 03:13: Sodium 132 L, Potassium 6.2 H*, Chloride 100, Carbon Dioxide 21, Anion Gap 17.2 H, BUN 89 H, Creatinine 10.90 H, Est GFR (CKD-EPI) 4 L, Glucose 100, Calcium 7.5 L, Phosphorus 8.3 H, Magnesium 1.8 01/17/24 03:13: WBC 5.60, RBC 2.99 L, Hgb 9.0 L, Hct 28.0 L, MCV 93.9, MCH 30.2, MCHC 32.2, RDW 17.4 H, Plt Count 241, MPV 8.8, Neutrophils % 69.2, Lymphocytes % 11.2 L, Monocytes % 17.4 H, Eosinophils % 1.6, Basophils % 0.6, Absolute Neutrophils 3.9, Segmented Neutrophils 59, Band Neutrophils 5 H, Absolute Lymphocytes 0.6 L, Lymphocytes 14 L, Monocytes 15 H, Absolute Monocytes 1.0, Eosinophils 5 H, Absolute Eosinophils 0.1, Absolute Basophils 0.0, Reactive Lymphocytes 2, Platelet Estimate Adeq, Morphology Comment Not seen Microbiology Results 01/15/24 16:44 Clean Catch Urine [place] Count - Preliminary No growth. 01/15/24 16:44 Clean Catch Urine - Preliminary No growth. 01/15/24 15:31 Blood - Blood Aerobic Blood Culture - Preliminary No growth in 24 hours. 01/15/24 15:31 Blood - Blood Anaerobic Blood Culture - Preliminary No growth in 24 hours. 01/15/24 15:03 Blood - Blood Aerobic Blood Culture - Preliminary No growth in 24 hours. 01/15/24 15:03 Blood - Blood Anaerobic Blood Culture - Preliminary No growth in 24 hours. 01/15/24 15:30 Nasopharnyx Influenza Type A Antigen Screen - Final 01/15/24 15:30 Nasopharnyx Influenza Type B Antigen Screen - Final Assessment/ Plan: Nephrology No dyspnea No chest pain Persistent edema Malaise No acute events overnight Vitals, medications, blood work and imaging reviewed in the chart NAD. MMM. NCAT. Normal Respiratory Effort. S1S2. ND Abd. PD Cath. No C/C. Hip Edema 1-2+. No rash. AAO. Normal speech. Larry ESRD on PD -PD as ordered Hyperkalemia -Kayexalate X1 -Change to a Renal Diet HTN with CKD/ CHF -Monitor BP Systolic CHF, A/C BL Pleural Effusion -Continue Bumex DM II with CKD & Polyneuropathy -RISS Anemia in CKD -Retacrit PRN CKD MBD -Continue Phoslo -Start Calcitriol Acute infective cystitis with hematuria -Continue abx -ID following Case reviewed with PD nurse
[2024-01-18 07:22] LABS: Absolute Eosinophils 0.2 K/uL (0-0.5); Absolute Monocytes 0.9 K/uL (0.1-1.3); Absolute Neutrophil 5.7 K/uL (1.8-8.0); Basophils % 0.5 % (0-1.3); Hemoglobin 10.1 g/dL (12.0-15.0); Lymphocytes % 12.6 % (15.3-44.8); MCH 29.6 pg (27.0-35.0); MCHC 31.5 g/dL (32.0-36.0); MPV 8.8 fL (7.6-11.3); Monocytes % 12.1 % (3.3-12.3); Neutrophils % 72.8 % (41.7-73.7); Nucleated Red Blood Cells % 0.3 % (0-0); Platelets 240 thou/uL (152-406); Red Cell Distribution Width 17.6 % (12.1-15.2)
[2024-01-18 07:42] LABS: Anion Gap 17.1 mEq/L (5.0-15.0); Magnesium 1.9 mg/dL (1.6-2.4); Phosphorus 8.3 mg/dL (2.5-4.9)
[2024-01-18 07:43] LABS: Potassium 6.1 mEq/L (3.5-5.1)
[2024-01-18] MEDS: CALCITROL 0.25 MCG CAP PO SCH (08:57)
--- NOTE | 2024-01-18 09:07 | P.PN ---
Date of Service: 01/18/24 Infectious Disease Progress Note Chief Complaint: Fluid volume overload Subjective: Reports feeling somewhat better today. Abdominal pain controlled with pain medications. No acute events overnight. Physical Examination Temp Pulse Resp BP Pulse Ox 97.6 F 73 18 127/77 98 01/18/24 04:00 01/18/24 04:00 01/18/24 04:00 01/18/24 04:00 01/18/24 04:00 General: Alert, In no apparent distress, Oriented x3 HEENT: Atraumatic, Normocephalic Respiratory: Clear to auscultation bilaterally, Normal air movement. Unlabored respirations on room air Cardiovascular: Regular rate/rhythm. Edema Gastrointestinal: Normal bowel sounds, Non-distended. mild diffuse abdominal tenderness. Skin: Abdomen with peritoneal dialysis catheters, no erythema or purulent drainage surrounding site. Musculoskeletal: bilateral BKA Laboratory Data - Reviewed Microbiology Data - Reviewed Imagings Data: - Reviewed Assessment and Plan Problem List ESRD on peritoneal dialysis MRSA of peritoneal fluid COVID-positive Fluid volume overload CHF Metabolic acidosis Hyponatremia Bilateral pleural effusion Anemia of chronic disease Diabetes mellitus bilateral BKA MRSA of peritoneal fluid -CT chest abdomen pelvis reports " 1. no specific source of fever identified. Moderate pleural effusion was which are unchanged with likely underlying atelectasis rather than pneumonia. 2 small volume of intraperitoneal free air and free fluid likely related to presence of a peritoneal dialysis catheter. No loculated fluid collections identified." - MRSA of peritoneal fluid on culture from 01/07 -Recently discharged home to complete a minimum of 2 weeks on vancomycin. - Blood cultures 01/14: no growth to date Urinary Tract Infection - Recent hospitalization being treated with Cefepime for urine culture obtained from outside laboratory on 01/02: Klebsiella oxytoca, Escherichia coli and Se rratia liquefaciens to complete 7 days. - Patient now returning with cloudy, foul smelling urine -Urinalysis: LE greater than 500, WBC greater than 50, RBC 21-50 - urine culture 01/14: no growth to date; 10,000-100,000 CFU/mL COVID-positive -Tested positive for COVID 01/14 - negative influenza a and B - denies any cough, shortness of breath, wheezing, chest pain ESRD on peritoneal dialysis -Creatinine 11.3 -Nephrology following. See notes for further recommendations Recommendaitons - MRSA peritoneal fluid: continue with vancomycin IV, dosed per ESRD. Pharmacy and nephrology following. - pending repeat peritoneal fluid culture - UTI: Continue cefepime for now. - Covid: continue supportive care. - Monitor CBC, BMP and fever trends, vanco troughs Case discussed with Jimy Carroll
[2024-01-18] MEDS: VANCOMYCIN 1 GM in NA CHLORIDE 0.9% 250 ML IVPB SCH (11:00)
--- NOTE | 2024-01-18 13:06 | P.PN ---
Date of Service: 01/18/24 Subjective Less nausea/vomiting Now with PD machine at bedside Had been using gravity method previously/overnight ROS 10 point ROS as noted above, otherwise negative Physical Exam General: NAD, AAO x 3, calm HEENT: Atraumatic, Normocephalic, PERRLA Neck: Supple, 2+ carotid pulse no bruit Respiratory: Clear to auscultation bilaterally, Normal air movement Cardiovascular: Normal S1 S2, NSR, no murmur noted Capillary refill: <2 Seconds Gastrointestinal: Hypoactive, Soft and benign on palpation, Tenderness, distended Musculoskeletal: Other (no fingernails, bilateral BKA) Integumentary: Skin breakdown (multiple), Other (pale skin color) Vitals Reviewed Problem list ESRD on peritoneal dialysis Acute on chronic systolic congestive heart failure Anasarca, bilateral pleural effusions Hyponatremia-mild Hyperkalemia Peritoneal fluid culture positive for MRSA-01/07 Abominal pain with Nausea/vomiting COVID-19 positive Anemia of chronic disease Diabetes mellitusIDDM History of hypertension History of HTN History of Hypothyroidism Plan ESRD on peritoneal dialysis Acute on chronic systolic congestive heart failure Anasarca, bilateral pleural effusions Hyponatremia-mild Hyperkalemia Continue peritoneal dialysis-now with PD machine at bedside-to discuss additional session of PD today with Dr. Suh Patient had been using just gravity method overnight since has been here Nephrology has increased diuresis with Bumex Monitor renal function daily Peritoneal fluid culture positive for MRSA-01/07 Blood cultures no growth Continue vancomycin/cefepime Infectious disease following May Need PICC line at discharge-will need to discuss further with nephrology Repeat perioneal fluid culture today Abominal pain with Nausea/vomiting As needed pain medications and antiemetics Reports she feels as if she is having some reflux-added Protonix 01/16 Some improvement with IV protonix since yesterday COVID-19 positive Breathing well on room air Supportive care Anemia of chronic disease Monitor H&H daily Diabetes mellitusIDDM ACHS Accu-Chek, sliding scale insulin History of hypertension History of HTN History of Hypothyroidism Continue home medications DVT PPx heparin Full code LOS 2 to 3 days
[2024-01-18] MEDS ORDERED: VANCOMYCIN 1 GM in NA CHLORIDE 0.9% 250 ML IVPB SCH (15:00)
[2024-01-18 17:25] LABS: Anion Gap 17.9 mEq/L (5.0-15.0); Potassium 4.9 mEq/L (3.5-5.1)
--- NOTE | 2024-01-18 22:44 | P.PN ---
Date of Service: 01/18/24 Vital Signs Temp Pulse Resp BP Pulse Ox 99 F 85 18 127/64 98 01/18/24 20:00 01/18/24 20:00 01/18/24 20:00 01/18/24 20:00 01/18/24 20:00 Medications Acetaminophen (Acetaminophen 500 Mg Tab) 500 mg PO Q4H PRN PRN Reason: TEMP > 100' F Bumetanide (Bumetanide 1 Mg Tablet) 2 mg PO TID [facility] Last Admin: 01/18/24 15:14 Dose: 2 mg Calcitriol (Calcitrol 0.25 Mcg Cap) 0.5 mcg PO DAILY [facility] Last Admin: 01/18/24 08:57 Dose: 0.5 mcg Calcium Acetate (Calcium Acetate 667 Mg Tab) 1,334 mg PO TIDWM [facility] Last Admin: 01/18/24 17:24 Dose: 1,334 mg Docusate Sodium (Docusate Na 100 Mg Cap) 100 mg PO BID [facility] Last Admin: 01/18/24 08:56 Dose: 100 mg Glucagon (Glucagon 1 Mg/Vial) 1 mg IM 1X PRN; Protocol PRN Reason: HYPOGLYCEMIA Heparin Sodium (Porcine) (Heparin 5000 Unit/Ml 1 Ml Vial) 5,000 unit SQ Q8HR [facility] Last Admin: 01/18/24 17:24 Dose: 5,000 unit Hydromorphone HCl (Hydromorphone Hcl 2 Mg/Ml Inj) 2 mg IV Q4H PRN PRN Reason: Pain scale 8-10 (Severe) Last Admin: 01/18/24 08:56 Dose: 2 mg Dextrose (Dextrose 10% Water Iv Soln.) 125 mls @ 0 mls/hr IV PRN PRN; Protocol PRN Reason: HYPOGLYCEMIA Cefepime HCl 1 gm/ Sodium (Chloride) 100 mls @ 200 mls/hr IV Q24H [facility] Last Admin: 01/18/24 15:00 Dose: Not Given Vancomycin HCl 1 gm/ Sodium (Chloride) 250 mls @ 250 mls/hr IVPB Q72H [facility] Last Admin: 01/18/24 12:34 Dose: 250 mls Insulin Human Regular (Insulin Regular (Human) 100 Unit/Ml) 0 unit SQ ACHS [facility]; Protocol Last Admin: 01/18/24 17:21 Dose: 2 unit Pantoprazole Sodium (Pantoprazole 40 Mg Inj) 40 mg IVP Q12HR [facility]; Protocol Last Admin: 01/18/24 08:56 Dose: 40 mg Promethazine HCl (Promethazine Inj 25 Mg/Ml Amp) 25 mg IV Q4H PRN PRN Reason: NAUSEA / VOMITING Last Admin: 01/18/24 08:56 Dose: 25 mg Sodium Chloride (Sodium Chloride 0.9% 10ml Inj) 10 ml IV UD PRN PRN Reason: Diluant Microbiology Results 01/15/24 16:44 Clean Catch Urine [place] Count - Final BETWEEN 10,000 & 100,000 CFU/ML 01/15/24 16:44 Clean Catch Urine - Final MIXED [place]. 01/15/24 15:31 Blood - Blood Aerobic Blood Culture - Preliminary No growth in 24 hours. 01/15/24 15:31 Blood - Blood Anaerobic Blood Culture - Preliminary No growth in 24 hours. 01/15/24 15:03 Blood - Blood Aerobic Blood Culture - Preliminary No growth in 24 hours. 01/15/24 15:03 Blood - Blood Anaerobic Blood Culture - Preliminary No growth in 24 hours. 01/15/24 15:30 Nasopharnyx Influenza Type A Antigen Screen - Final 01/15/24 15:30 Nasopharnyx Influenza Type B Antigen Screen - Final Assessment/ Plan: Nephrology No dyspnea No chest pain Persistent edema Malaise with nausea No acute events overnight Vitals, medications, blood work and imaging reviewed in the chart NAD. MMM. NCAT. Normal Respiratory Effort. S1S2. ND Abd. PD Cath. No C/C. Hip Edema 1-2+. No rash. AAO. Normal speech. Larry ESRD on PD -PD as ordered -Recommend extra treatments Hyperkalemia -Kayexalate prn -Continue Renal Diet HTN with CKD/ CHF -Monitor BP Systolic CHF, A/C BL Pleural Effusion -Continue Bumex DM II with CKD & Polyneuropathy -RISS -Start Reglan for possible gastroparesis Anemia in CKD -Retacrit PRN CKD MBD -Continue Phoslo -Continue Calcitriol Acute infective cystitis with hematuria -Continue abx -ID following Hospitalist note reviewed
[2024-01-19 03:35] LABS: Absolute Eosinophils 0.2 K/uL (0-0.5); Absolute Lymphocytes (CBC) 0.8 K/uL (0.7-4.9); Absolute Monocytes 0.7 K/uL (0.1-1.3); Absolute Neutrophil 5.1 K/uL (1.8-8.0); Basophils % 0.4 % (0-1.3); Eosinophils % 2.7 % (0-4.4); Hematocrit 27.2 % (36.0-45.0); Hemoglobin 9.2 g/dL (12.0-15.0); Lymphocytes % 11.7 % (15.3-44.8); MCHC 33.7 g/dL (32.0-36.0); MPV 8.4 fL (7.6-11.3); Monocytes % 10.1 % (3.3-12.3); Neutrophils % 75.1 % (41.7-73.7); Nucleated Red Blood Cells % 0.1 % (0-0); Platelets 228 thou/uL (152-406); RBC Red Blood Cell Count 2.96 M/uL (3.86-4.86); Red Cell Distribution Width 17.2 % (12.1-15.2)
[2024-01-19 03:49] LABS: Anion Gap 15.2 mEq/L (5.0-15.0); Magnesium 1.6 mg/dL (1.6-2.4); Phosphorus 7.5 mg/dL (2.5-4.9); Potassium 4.2 mEq/L (3.5-5.1)
[2024-01-19] MEDS: VANCOMYCIN 1 GM in NA CHLORIDE 0.9% 250 ML IVPB SCH (08:31)
[2024-01-19] MEDS: METOCLOPRAMIDE 10 MG/2mL INJ IV SCH (08:33)
[2024-01-19] MEDS: MAGNESIUM SULFATE 1 gm IVPB 1 GM/100 ML BAG IV ONE (08:34)
--- NOTE | 2024-01-19 08:35 | P.PN ---
Infectious Disease Progress Note Chief Complaint: Fluid volume overload Subjective: NAD. Reports improvement in nausea. Improvement in abdominal pain. No acute events overnight. Physical Examination Temp Pulse Resp BP Pulse Ox 97.1 F 86 18 123/77 99 01/19/24 04:00 01/19/24 04:00 01/19/24 04:00 01/19/24 04:00 01/19/24 06:18 General: Alert, In no apparent distress, Oriented x3 HEENT: Atraumatic, Normocephalic Respiratory: Clear to auscultation bilaterally, Normal air movement. Unlabored respirations on room air Cardiovascular: Regular rate/rhythm. Edema Gastrointestinal: Normal bowel sounds, Non-distended. mild diffuse abdominal tenderness. Skin: Abdomen with peritoneal dialysis catheters, no erythema or purulent drainage surrounding site. Musculoskeletal: bilateral BKA Laboratory Data - Reviewed Microbiology Data - Reviewed Imagings Data: - Reviewed Medication List: Reviewed Assessment and Plan Problem List ESRD on peritoneal dialysis MRSA of peritoneal fluid COVID-positive Fluid volume overload CHF Metabolic acidosis Hyponatremia Bilateral pleural effusion Anemia of chronic disease Diabetes mellitus bilateral BKA MRSA of peritoneal fluid -CT chest abdomen pelvis reports " 1. no specific source of fever identified. Moderate pleural effusion was which are unchanged with likely underlying atelectasis rather than pneumonia. 2 small volume of intraperitoneal free air and free fluid likely related to presence of a peritoneal dialysis catheter. No loculated fluid collections identified." - MRSA of peritoneal fluid on culture from 01/07. Recently discharged home to complete a minimum of 2 weeks on vancomycin. - Blood cultures 01/14: no growth to date Urinary Tract Infection - Recent hospitalization being treated with Cefepime x 7 days for urine culture obtained from outside laboratory on 01/02: Klebsiella oxytoca, Escherichia coli and Serratia liquefaciens. - Patient now returning with cloudy, foul smelling urine -Urinalysis: LE greater than 500, WBC greater than 50, RBC 21-50 - urine culture 01/14: no growth; 10,000-100,000 CFU/mL COVID-positive -Tested positive for COVID 01/14 - negative influenza a and B - denies any cough, shortness of breath, wheezing, chest pain ESRD on peritoneal dialysis -Nephrology following. See notes for further recommendations Recommendaitons - MRSA peritoneal fluid: continue with vancomycin IV, dosed per ESRD. Pharmacy and nephrology following. - pending repeat peritoneal fluid culture. follow up. - UTI: Continue cefepime - Covid: continue supportive care. - Monitor CBC, BMP and fever trends, vanco troughs Case discussed with Jimy Carroll
--- NOTE | 2024-01-19 10:22 | P.PN ---
Date of Service: 01/19/24 Subjective Less nausea/vomiting Doing better with peritoneal dialysis machine vs gravity method now with midline in place due to difficult iv access ROS 10 point ROS as noted above, otherwise negative Physical Exam General: NAD, AAO x 3, calm HEENT: Atraumatic, Normocephalic, PERRLA Neck: Supple, 2+ carotid pulse no bruit Respiratory: Clear to auscultation bilaterally, Normal air movement Cardiovascular: Normal S1 S2, NSR, no murmur noted Capillary refill: <2 Seconds Gastrointestinal: Hypoactive, Soft and benign on palpation, Tenderness, distended Musculoskeletal: Other (no fingernails, bilateral BKA) Integumentary: Skin breakdown (multiple), Other (pale skin color) Vitals Reviewed Problem list ESRD on peritoneal dialysis Acute on chronic systolic congestive heart failure Anasarca, bilateral pleural effusions Hyponatremia-mild Hyperkalemia Peritoneal fluid culture positive for MRSA-01/07 Abominal pain with Nausea/vomiting COVID-19 positive Anemia of chronic disease Diabetes mellitusIDDM History of hypertension History of HTN History of Hypothyroidism Plan ESRD on peritoneal dialysis Acute on chronic systolic congestive heart failure Anasarca, bilateral pleural effusions Hyponatremia-mild Hyperkalemia Continue peritoneal dialysis-now with PD machine at bedside-hyperkalemia improved with PD machine usage Continue with additional sessions of PD per nephrology Nephrology has increased diuresis with Bumex Monitor renal function daily Peritoneal fluid culture positive for MRSA-01/07 Blood cultures no growth Continue vancomycin/cefepime Infectious disease following May Need PICC line at discharge-will need to discuss further with nephrology Repeat perioneal fluid culture sent 01/17-awaiting results At discharge likely to require abx via PD or IV Abominal pain with Nausea/vomiting As needed pain medications and antiemetics Reports she feels as if she is having some reflux-added Protonix 01/16 Some improvement with IV protonix since yesterday Dilaudid reduced to 1mg q6h 01/18, added norco started on reglan 01/17 Still with c/o pain/nausea but tolerating some diet COVID-19 positive Breathing well on room air Supportive care Anemia of chronic disease Monitor H&H daily Diabetes mellitusIDDM ACHS Accu-Chek, sliding scale insulin History of hypertension History of HTN History of Hypothyroidism Continue home medications DVT PPx heparin Full code LOS 2 to 3 days
[2024-01-19] MEDS: HYDROCODONE/APAP 10/325 TAB PO PRN (11:34)
[2024-01-19] MEDS: HYDROMORPHONE HCL 1 MG/ML INJ IV PRN (16:45)
--- NOTE | 2024-01-19 20:57 | P.PN ---
Date of Service: 01/19/24 Vital Signs Temp Pulse Resp BP Pulse Ox 98.3 F 76 18 110/55 L 94 01/19/24 16:00 01/19/24 16:00 01/19/24 17:12 01/19/24 16:00 01/19/24 17:12 Medications Acetaminophen (Acetaminophen 500 Mg Tab) 500 mg PO Q4H PRN PRN Reason: TEMP > 100' F Hydrocodone Bitart/Acetaminophen (Hydrocodone/Apap 10/325 Tab) 1 tab PO Q4H PRN PRN Reason: Pain scale 8-10 (Severe) Last Admin: 01/19/24 11:34 Dose: 1 tab Bumetanide (Bumetanide 1 Mg Tablet) 2 mg PO TID [facility] Last Admin: 01/19/24 14:00 Dose: Not Given Calcitriol (Calcitrol 0.25 Mcg Cap) 0.5 mcg PO DAILY [facility] Last Admin: 01/19/24 08:32 Dose: 0.5 mcg Calcium Acetate (Calcium Acetate 667 Mg Tab) 1,334 mg PO TIDWM [facility] Last Admin: 01/19/24 16:44 Dose: 1,334 mg Docusate Sodium (Docusate Na 100 Mg Cap) 100 mg PO BID [facility] Last Admin: 01/19/24 08:34 Dose: 100 mg Glucagon (Glucagon 1 Mg/Vial) 1 mg IM 1X PRN; Protocol PRN Reason: HYPOGLYCEMIA Heparin Sodium (Porcine) (Heparin 5000 Unit/Ml 1 Ml Vial) 5,000 unit SQ Q8HR [facility] Last Admin: 01/19/24 16:45 Dose: 5,000 unit Hydromorphone HCl (Hydromorphone Hcl 1 Mg/Ml Inj) 1 mg IV Q6H PRN PRN Reason: BREAKTHROUGH PAIN Last Admin: 01/19/24 16:45 Dose: 1 mg Dextrose (Dextrose 10% Water Iv Soln.) 125 mls @ 0 mls/hr IV PRN PRN; Protocol PRN Reason: HYPOGLYCEMIA Cefepime HCl 1 gm/ Sodium (Chloride) 100 mls @ 200 mls/hr IV Q24H [facility] Last Admin: 01/19/24 15:30 Dose: 100 mls Vancomycin HCl 1 gm/ Sodium (Chloride) 250 mls @ 250 mls/hr IVPB Q72H [facility] Last Admin: 01/19/24 08:31 Dose: 250 mls Insulin Human Regular (Insulin Regular (Human) 100 Unit/Ml) 0 unit SQ ACHS [facility]; Protocol Last Admin: 01/19/24 16:30 Dose: Not Given Metoclopramide HCl (Metoclopramide 10 Mg/2ml Inj) 5 mg IV BIDAC [facility] Last Admin: 01/19/24 16:45 Dose: 5 mg Pantoprazole Sodium (Pantoprazole 40 Mg Inj) 40 mg IVP Q12HR [facility]; Protocol Last Admin: 01/19/24 08:33 Dose: 40 mg Promethazine HCl (Promethazine Inj 25 Mg/Ml Amp) 25 mg IV Q4H PRN PRN Reason: NAUSEA / VOMITING Last Admin: 01/19/24 11:35 Dose: 25 mg Sodium Chloride (Sodium Chloride 0.9% 10ml Inj) 10 ml IV UD PRN PRN Reason: Diluant Microbiology Results 01/15/24 16:44 Clean Catch Urine [place] Count - Final BETWEEN 10,000 & 100,000 CFU/ML 01/15/24 16:44 Clean Catch Urine - Final MIXED [place]. 01/15/24 15:31 Blood - Blood Aerobic Blood Culture - Preliminary No growth in 24 hours. 01/15/24 15:31 Blood - Blood Anaerobic Blood Culture - Preliminary No growth in 24 hours. 01/15/24 15:03 Blood - Blood Aerobic Blood Culture - Preliminary No growth in 24 hours. 01/15/24 15:03 Blood - Blood Anaerobic Blood Culture - Preliminary No growth in 24 hours. 01/15/24 15:30 Nasopharnyx Influenza Type A Antigen Screen - Final 01/15/24 15:30 Nasopharnyx Influenza Type B Antigen Screen - Final Assessment/ Plan: Nephrology No dyspnea No chest pain Poor appetite Diarrhea No acute events overnight Vitals, medications, blood work and imaging reviewed in the chart NAD. MMM. NCAT. Normal Respiratory Effort. S1S2. ND Abd. PD Cath. No C/C. Hip Edema 1-2+. No rash. AAO. Normal speech. Larry ESRD on PD -PD as ordered -Recommend extra treatments Hyperkalemia -Kayexalate prn -Continue Renal Diet HTN with CKD/ CHF -Monitor BP Systolic CHF, A/C BL Pleural Effusion -Continue Bumex DM II with CKD & Polyneuropathy -RISS -Continue Reglan for possible gastroparesis Anemia in CKD -Retacrit PRN CKD MBD -Continue Phoslo -Continue Calcitriol Acute infective cystitis with hematuria -Continue abx -ID following ID note reviewed Case reviewed with hospitalist team/ Dr. Chapman
[2024-01-20 04:50] LABS: Absolute Basophils 0.1 K/uL (0-0.5); Absolute Eosinophils 0.1 K/uL (0-0.5); Absolute Monocytes 0.6 K/uL (0.1-1.3); Absolute Neutrophil 5.4 K/uL (1.8-8.0); Basophils % 1.3 % (0-1.3); Eosinophils % 1.7 % (0-4.4); Hematocrit 28.3 % (36.0-45.0); Hemoglobin 9.4 g/dL (12.0-15.0); Lymphocytes % 14.3 % (15.3-44.8); MCH 30.8 pg (27.0-35.0); MCHC 33.1 g/dL (32.0-36.0); MCV 93.1 fL (80-100); MPV 8.4 fL (7.6-11.3); Monocytes % 8.1 % (3.3-12.3); Neutrophils % 74.6 % (41.7-73.7); Nucleated Red Blood Cells % 0.1 % (0-0); Platelets 233 thou/uL (152-406); RBC Red Blood Cell Count 3.04 M/uL (3.86-4.86); Red Cell Distribution Width 17.3 % (12.1-15.2)
[2024-01-20 05:23] VITALS: O2SAT 98
[2024-01-20 05:24] LABS: Anion Gap 12.1 mEq/L (5.0-15.0); Magnesium 1.8 mg/dL (1.6-2.4); Phosphorus 6.5 mg/dL (2.5-4.9); Potassium 4.1 mEq/L (3.5-5.1)
[2024-01-20] MEDS: MAGNESIUM SULFATE 1 gm IVPB 1 GM/100 ML BAG IV ONE (08:10)
--- NOTE | 2024-01-20 09:25 | P.PN ---
Date of Service: 01/20/24 Subjective Less nausea/vomiting Doing better with peritoneal dialysis machine vs gravity method now with midline in place due to difficult iv access Taking less pain meds/nausea meds ROS 10 point ROS as noted above, otherwise negative Physical Exam General: NAD, AAO x 3, calm HEENT: Atraumatic, Normocephalic, PERRLA Neck: Supple, 2+ carotid pulse no bruit Respiratory: Clear to auscultation bilaterally, Normal air movement Cardiovascular: Normal S1 S2, NSR, no murmur noted Capillary refill: <2 Seconds Gastrointestinal: Hypoactive, Soft and benign on palpation, Tenderness, distended Musculoskeletal: Other (no fingernails, bilateral BKA) Integumentary: Skin breakdown (multiple), Other (pale skin color) Vitals Reviewed Problem list ESRD on peritoneal dialysis Acute on chronic systolic congestive heart failure Anasarca, bilateral pleural effusions Hyponatremia-mild Hyperkalemia Peritoneal fluid culture positive for MRSA-01/07 Abominal pain with Nausea/vomiting COVID-19 positive Anemia of chronic disease Diabetes mellitusIDDM History of hypertension History of HTN History of Hypothyroidism Plan ESRD on peritoneal dialysis Acute on chronic systolic congestive heart failure Anasarca, bilateral pleural effusions Hyponatremia-mild Hyperkalemia Continue peritoneal dialysis-now with PD machine at bedside-hyperkalemia improved with PD machine usage Continue with additional sessions of PD per nephrology Nephrology has increased diuresis with Bumex Monitor renal function daily Peritoneal fluid culture positive for MRSA-01/07 Blood cultures no growth Continue vancomycin/cefepime Infectious disease following May Need PICC line at discharge-will need to discuss further with nephrology Repeat perioneal fluid culture sent 01/17-preliminary with no growth At discharge likely to require abx via PD or IV will discuss further with ID/nephrology Abominal pain with Nausea/vomiting As needed pain medications and antiemetics Reports she feels as if she is having some reflux-added Protonix 01/16 Some improvement with IV protonix since yesterday Dilaudid reduced to 0.5mg iv q6 01/19 started on reglan 01/17 Tolerating diet more today COVID-19 positive Breathing well on room air Supportive care Anemia of chronic disease Monitor H&H daily Diabetes mellitusIDDM ACHS Accu-Chek, sliding scale insulin History of hypertension History of HTN History of Hypothyroidism Continue home medications DVT PPx heparin Full code LOS 2 to 3 days
[2024-01-20] MEDS: HYDROMORPHONE HCL 1 MG/ML INJ IV PRN (12:04)
[2024-01-20] MEDS: PROMETHAZINE INJ 25 MG/ML AMP IV PRN (12:05)
--- NOTE | 2024-01-20 14:46 | P.PN ---
Infectious Disease Progress Note Chief Complaint: Fluid volume overload Subjective: In no apparent distress. + generalized weakness No new/worsening complaints. Improvement in nausea and pain. Physical Examination General: Alert, In no apparent distress, Oriented x3 HEENT: Atraumatic, Normocephalic Respiratory: Clear to auscultation bilaterally, Normal air movement. Unlabored respirations on room air Cardiovascular: Regular rate/rhythm. Edema Gastrointestinal: Normal bowel sounds, Non-distended. mild diffuse abdominal tenderness. Skin: Abdomen with peritoneal dialysis catheters, no erythema or purulent drainage surrounding site. Musculoskeletal: bilateral BKA Laboratory Data - Reviewed Microbiology Data - Reviewed Imagings Data: - Reviewed Medication List: Reviewed Assessment and Plan Problem List ESRD on peritoneal dialysis MRSA of peritoneal fluid COVID-positive Fluid volume overload CHF Metabolic acidosis Hyponatremia Bilateral pleural effusion Anemia of chronic disease Diabetes mellitus bilateral BKA MRSA of peritoneal fluid -CT chest abdomen pelvis reports " 1. no specific source of fever identified. Moderate pleural effusion was which are unchanged with likely underlying atelectasis rather than pneumonia. 2 small volume of intraperitoneal free air and free fluid likely related to presence of a peritoneal dialysis catheter. No loculated fluid collections identified." - MRSA of peritoneal fluid on culture from 01/07. Recently discharged home to complete a minimum of 2 weeks on vancomycin. - Blood cultures 01/14: no growth to date - peritoneal fluid culture 01/16: no growth to date Urinary Tract Infection - Recent hospitalization being treated with Cefepime x 7 days for urine culture obtained from outside laboratory on 01/02: Klebsiella oxytoca, Escherichia coli and Serratia liquefaciens. - Patient now returning with cloudy, foul smelling urine -Urinalysis: LE greater than 500, WBC greater than 50, RBC 21-50 - urine culture 01/14: no growth; 10,000-100,000 CFU/mL COVID-positive -Tested positive for COVID 01/14 - negative influenza a and B - denies any cough, shortness of breath, wheezing, chest pain ESRD on peritoneal dialysis -Nephrology following. See notes for further recommendations Recommendaitons - MRSA peritoneal fluid: continue with vancomycin IV, dosed per ESRD. Pharmacy and nephrology following. - repeat peritoneal fluid culture without growth, will continue with vancomycin for 2 weeks. - UTI: Continue cefepime x 7 days (01/14-01/20) - Covid: continue supportive care. - Monitor CBC, BMP and fever trends, vanco troughs Case discussed with Jimy Carroll
--- NOTE | 2024-01-20 22:23 | P.PN ---
Date of Service: 01/20/24 Vital Signs Temp Pulse Resp BP Pulse Ox 96.9 F 84 18 116/70 97 01/20/24 20:00 01/20/24 21:57 01/20/24 20:00 01/20/24 21:57 01/20/24 20:00 Medications Acetaminophen (Acetaminophen 500 Mg Tab) 500 mg PO Q4H PRN PRN Reason: TEMP > 100' F Hydrocodone Bitart/Acetaminophen (Hydrocodone/Apap 10/325 Tab) 1 tab PO Q4H PRN PRN Reason: Pain scale 8-10 (Severe) Last Admin: 01/19/24 20:41 Dose: 1 tab Bumetanide (Bumetanide 1 Mg Tablet) 2 mg PO TID [facility] Last Admin: 01/20/24 21:57 Dose: 2 mg Calcitriol (Calcitrol 0.25 Mcg Cap) 0.5 mcg PO DAILY [facility] Last Admin: 01/20/24 09:22 Dose: 0.5 mcg Calcium Acetate (Calcium Acetate 667 Mg Tab) 1,334 mg PO TIDWM [facility] Last Admin: 01/20/24 16:19 Dose: 1,334 mg Docusate Sodium (Docusate Na 100 Mg Cap) 100 mg PO BID [facility] Last Admin: 01/20/24 09:00 Dose: Not Given Glucagon (Glucagon 1 Mg/Vial) 1 mg IM 1X PRN; Protocol PRN Reason: HYPOGLYCEMIA Heparin Sodium (Porcine) (Heparin 5000 Unit/Ml 1 Ml Vial) 5,000 unit SQ Q8HR [facility] Last Admin: 01/20/24 16:19 Dose: 5,000 unit Hydromorphone HCl (Hydromorphone Hcl 1 Mg/Ml Inj) 0.5 mg IV Q6H PRN PRN Reason: BREAKTHROUGH PAIN Last Admin: 01/20/24 18:12 Dose: 0.5 mg Dextrose (Dextrose 10% Water Iv Soln.) 125 mls @ 0 mls/hr IV PRN PRN; Protocol PRN Reason: HYPOGLYCEMIA Cefepime HCl 1 gm/ Sodium (Chloride) 100 mls @ 200 mls/hr IV Q24H [facility] Last Admin: 01/20/24 14:17 Dose: 100 mls Vancomycin HCl 1 gm/ Sodium (Chloride) 250 mls @ 250 mls/hr IVPB Q72H [facility] Last Admin: 01/19/24 08:31 Dose: 250 mls Insulin Human Regular (Insulin Regular (Human) 100 Unit/Ml) 0 unit SQ ACHS SONY; Protocol Last Admin: 01/20/24 16:29 Dose: Not Given Metoclopramide HCl (Metoclopramide 10 Mg/2ml Inj) 5 mg IV BIDAC SONY Last Admin: 01/20/24 16:20 Dose: Not Given Pantoprazole Sodium (Pantoprazole 40 Mg Inj) 40 mg IVP Q12HR [facility]; Protocol Last Admin: 01/20/24 09:22 Dose: 40 mg Promethazine HCl (Promethazine Inj 25 Mg/Ml Amp) 12.5 mg IV Q4H PRN PRN Reason: NAUSEA / VOMITING Last Admin: 01/20/24 18:12 Dose: 12.5 mg Sodium Chloride (Sodium Chloride 0.9% 10ml Inj) 10 ml IV UD PRN PRN Reason: Diluant Microbiology Results 01/15/24 15:31 Blood - Blood Aerobic Blood Culture - Final No growth in 5 days. 01/15/24 15:31 Blood - Blood Anaerobic Blood Culture - Final No growth in 5 days. 01/15/24 15:03 Blood - Blood Aerobic Blood Culture - Final No growth in 5 days. 01/15/24 15:03 Blood - Blood Anaerobic Blood Culture - Final No growth in 5 days. 01/15/24 16:44 Clean Catch Urine [place] Count - Final BETWEEN 10,000 & 100,000 CFU/ML 01/15/24 16:44 Clean Catch Urine - Final MIXED ALVERTO. 01/15/24 15:30 Nasopharnyx Influenza Type A Antigen Screen - Final 01/15/24 15:30 Nasopharnyx Influenza Type B Antigen Screen - Final Assessment/ Plan: Nephrology No dyspnea No chest pain Feeling better today No acute events overnight Vitals, medications, blood work and imaging reviewed in the chart NAD. MMM. NCAT. Normal Respiratory Effort. S1S2. ND Abd. PD Cath. No C/C. Hip Edema 1-2+. No rash. AAO. Normal speech. Larry ESRD on PD -PD as ordered -Recommend extra treatments Hyperkalemia -Kayexalate prn -Continue Renal Diet HTN with CKD/ CHF -Monitor BP Systolic CHF, A/C BL Pleural Effusion -Continue Bumex DM II with CKD & Polyneuropathy -RISS -Continue Reglan for possible gastroparesis Anemia in CKD -Retacrit PRN CKD MBD -Continue Phoslo -Continue Calcitriol Acute infective cystitis with hematuria -Continue abx -ID following ID note reviewed Case reviewed with hospitalist team
[2024-01-21 06:19] LABS: Hematocrit 29.8 % (36.0-45.0); Hemoglobin 9.8 g/dL (12.0-15.0); MCH 30.4 pg (27.0-35.0); MCHC 32.9 g/dL (32.0-36.0); MCV 92.3 fL (80-100); MPV 8.6 fL (7.6-11.3); Platelets 241 thou/uL (152-406); RBC Red Blood Cell Count 3.23 M/uL (3.86-4.86); Red Cell Distribution Width 17.4 % (12.1-15.2)
[2024-01-21 06:40] LABS: Anion Gap 13.6 mEq/L (5.0-15.0); Potassium 4.6 mEq/L (3.5-5.1)
[2024-01-21] MEDS ORDERED: PROMETHAZINE 25 MG TABLET PO PRN (06:59)
[2024-01-21 09:06] VITALS: BP 116/70; TEMP 98.4
[2024-01-21] MEDS: EPOETIN ALFA 10,000 UNIT/ML VIAL SQ SCH (09:23)
[2024-01-21] MEDS: CEFEPIME 1 GM in NA CHLORIDE 0.9% 100 ML IV SCH (09:24)
[2024-01-21] MEDS: PROMETHAZINE 25 MG TABLET PO ONE (11:37)
--- NOTE | 2024-01-21 12:04 | P.DS ---
Admission Date: 01/17/24 Discharge Date: 01/21/24 Disposition: ROUTINE DISCHARGE Discharge Condition: GOOD Reason for Admission: Fluid volume overload Consultations: NephrologyDr. Suh Infectious diseaseDrAlana Alvarado Brief History of Present Illness: Keiry Umaña is a 48 year old female with Pmhx HTN, HLD, hypothyroidism, [place], DM on ozempic, ESRD on Peritoneal dialysis, and anxiety/depression who presents to the ED with chief complaint of abdominal pain associated with fever of 101 which began three days ago. . She was recently discharged for home antibiotic therapy through the PD catheter, she reports the first dose was to start on Tuesday. On examination, she is in severe abdominal pain, shivering, pale skin color. She reports seeing blood in her urine and in her PD catheter. Keiry will be admitted to hospitalist service for further evaluation and treatment of fluid volume overload, COVID, peritoneal MRSA. Dr. Bueno and Dr. Alvarado consulted. Hospital Course: Problem list ESRD on peritoneal dialysis Acute on chronic systolic congestive heart failure Anasarca, bilateral pleural effusions Hyponatremia-mild Hyperkalemia Peritoneal fluid culture positive for MRSA-01/07 Abominal pain with Nausea/vomiting COVID-19 positive Anemia of chronic disease Diabetes mellitusIDDM History of hypertension History of HTN History of Hypothyroidism Patient was admitted to hospital for volume overload, hyperkalemia, abdominal pain, and was found to be COVID-19 positive.She recently had a peritoneal fluid culture which was positive for MRSA. The peritoneal fluid culture with MRSA was obtained on 01/07 during a recent admission and she was discharged with outpatient vancomycin with peritoneal dialysis for a total of 2 weeks. Apparently there was lack of communication with peritoneal dialysis nurse/nephrology and she did not receive any doses of IV vancomycin with her peritoneal dialysis and she left the hospital on 01/11. She returned to the hospital on 01/16 and was treated with IV vancomycin, IV cefepime for the MRSA and UTI. She has completed the course of IV cefepime and is still needing 1 week of vancomycin for the MRSA peritoneal fluid. Outpatient vancomycin has been arranged with her [employer]s and footballs reverser, then trough was obtained today 01/20 and was 19.1. At this time patient stable for outpatient treatment. Please call your peritoneal dialysis nurse/nephrology Dr. Suh to further arrange your outpatient peritoneal dialysis/vancomycin therapy which has been set up. Please continue using her peritoneal dialysis machine versus the gravity method as it has shown to be much more effective for you including potassium and overall volume status. Continue taking your other home medications as previously prescribed. Follow-up with your primary care doctor in 1 to 2 weeks Vital Signs/Physical Exam: Temp Pulse Resp BP Pulse Ox 98.4 F 79 15 116/70 97 01/21/24 08:00 01/21/24 09:24 01/21/24 11:36 01/21/24 09:24 01/21/24 11:36 General: Alert, In no apparent distress, Oriented x3 HEENT: Atraumatic, PERRLA Neck: Supple, JVD not distended Respiratory: Clear to auscultation bilaterally, Normal air movement Cardiovascular: Regular rate/rhythm, Normal S1 S2 Gastrointestinal: Normal bowel sounds, Other (PD cath in place) Musculoskeletal: Other (FLOWER BKA) Integumentary: No rashes Neurological: Normal speech, Normal tone, Normal affect Lymphatics: No axilla or inguinal lymphadenopathy Laboratory Data at Discharge: WBC 8.70 thou/uL (4.3-10.9) 01/21/24 05:49 Hgb 9.8 g/dL (12.0-15.0) L 01/21/24 05:49 Hct 29.8 % (36.0-45.0) L 01/21/24 05:49 Plt Count 241 thou/uL (152-406) 01/21/24 05:49 PT 14.6 SECONDS (9.5-12.5) H 01/15/24 15:03 INR 1.34 01/15/24 15:03 Sodium Cancelled 01/21/24 Unknown Potassium Cancelled 01/21/24 Unknown BUN Cancelled 01/21/24 Unknown Creatinine Cancelled 01/21/24 Unknown Glucose Cancelled 01/21/24 Unknown Phosphorus 6.5 mg/dL (2.5-4.9) H 01/20/24 04:29 Magnesium 1.8 mg/dL (1.6-2.4) 01/20/24 04:29 Total Bilirubin 0.5 mg/dL (0.2-1.0) 01/15/24 15:03 AST 7 U/L (15-37) L 01/15/24 15:03 ALT < 10 U/L (13-56) L 01/15/24 15:03 Alkaline Phosphatase 76 U/L (45-117) 01/15/24 15:03 Lipase 25 U/L (13-75) 01/15/24 15:03 Home Medications: Atorvastatin Calcium [Lipitor] 40 mg PO BEDTIME #30 tab 01/12/24 Bumetanide [Bumex*] 2 mg PO BIDL #120 tab 01/12/24 Docusate [Colace Cap*] 100 mg PO BID #60 cap 01/12/24 Hydrocodone 10/APAP 325 [[place] 10/325*] 1 tab PO Q6H PRN #15 tab 01/12/24 Promethazine Tab [Phenergan*] 25 mg PO Q8H PRN #30 tab 01/12/24 Sevelamer Carbonate [Renvela*] 1,600 mg PO TIDWM #180 tab 01/12/24 Apixaban [Eliquis] 5 mg PO BID 01/16/24 Carvedilol [Coreg] 25 mg PO BID 01/16/24 Clopidogrel Bisulfate [Plavix] 75 mg PO DAILY 01/16/24 Doxepin HCl 6 mg PO BEDTIME 01/16/24 Levothyroxine [Synthroid] 50 mcg PO [id number] 01/16/24 Sacubitril/Valsartan [Entresto 49 mg-51 mg Tablet] 1 tab PO BID 01/16/24 Sertraline [Zoloft] 100 mg PO DAILY 01/16/24 Physician Discharge Instructions: Patient was admitted to hospital for volume overload, hyperkalemia, abdominal pain, and was found to be COVID-19 positive.She recently had a peritoneal fluid culture which was positive for MRSA. The peritoneal fluid culture with MRSA was obtained on 01/07 during a recent admission and she was discharged with outpatient vancomycin with peritoneal dialysis for a total of 2 weeks. Apparently there was lack of communication with peritoneal dialysis nurse/nephrology and she did not receive any doses of IV vancomycin with her peritoneal dialysis and she left the hospital on 01/11. She returned to the hospital on 01/16 and was treated with IV vancomycin, IV cefepime for the MRSA and UTI. She has completed the course of IV cefepime and is still needing 1 week of vancomycin for the MRSA peritoneal fluid. Outpatient vancomycin has been arranged with her [employer]s and footballs reverser, then trough was obtained today 01/20 and was 19.1. At this time patient stable for outpatient treatment. Please call your peritoneal dialysis nurse/nephrology Dr. Suh to further arrange your outpatient peritoneal dialysis/vancomycin therapy which has been set up. Please continue using her peritoneal dialysis machine versus the gravity method as it has shown to be much more effective for you including potassium and overall volume status. Continue taking your other home medications as previously prescribed. Follow-up with your primary care doctor in 1 to 2 weeks Diet: Renal Activity: Fall precautions Followup: Richard Suh DO [ACTIVE - CAN ADMIT] - 2-3 Days Akira Suero FNP [Primary Care Provider] - 1-2 Weeks Time spent managing pt's care (in minutes): 35
--- NOTE | 2024-01-21 22:11 | P.PN ---
Date of Service: 01/21/24 Vital Signs Temp Pulse Resp BP Pulse Ox 98.4 F 79 15 116/70 97 01/21/24 08:00 01/21/24 09:24 01/21/24 11:36 01/21/24 09:24 01/21/24 11:36 Microbiology Results 01/15/24 15:31 Blood - Blood Aerobic Blood Culture - Final No growth in 5 days. 01/15/24 15:31 Blood - Blood Anaerobic Blood Culture - Final No growth in 5 days. 01/15/24 15:03 Blood - Blood Aerobic Blood Culture - Final No growth in 5 days. 01/15/24 15:03 Blood - Blood Anaerobic Blood Culture - Final No growth in 5 days. 01/15/24 16:44 Clean Catch Urine [place] Count - Final BETWEEN 10,000 & 100,000 CFU/ML 01/15/24 16:44 Clean Catch Urine - Final MIXED ALVERTO. 01/15/24 15:30 Nasopharnyx Influenza Type A Antigen Screen - Final 01/15/24 15:30 Nasopharnyx Influenza Type B Antigen Screen - Final Assessment/ Plan: Nephrology No dyspnea No chest pain Feeling better today and ready to go home No acute events overnight Vitals, medications, blood work and imaging reviewed in the chart NAD. MMM. NCAT. Normal Respiratory Effort. S1S2. ND Abd. PD Cath. No C/C. Hip Edema 1-2+. No rash. AAO. Normal speech. Larry ESRD on PD -PD as ordered -Recommend extra treatments Hyperkalemia -Kayexalate prn -Continue Renal Diet HTN with CKD/ CHF -Monitor BP Systolic CHF, A/C BL Pleural Effusion -Continue Bumex DM II with CKD & Polyneuropathy -RISS -Discontinue Reglan -Phenergan prn nausea Anemia in CKD -Retacrit PRN CKD MBD -Continue Phoslo -Continue Calcitriol Acute infective cystitis with hematuria -Continue abx -ID following ID note reviewed Case reviewed with Dr. Chapman
== END 2024-01-21 11:58 | disposition home or self-care (01) | DRG 919 ==
LOC: ER 14:12 → ERHOLD 16:23 → 2ND 16:55 → OBSVTOIN 01-17 11:40
PROVIDERS: ADMIT Internal Medicine; ATTEND Hospitalist
PROC: 3E1M39Z Irrigation of Peritoneal Cavity using Dialysate, Percutaneous Approach (ICD-10-PCS; principal; 2024-01-17)
DX: T85.898A Other specified complication of other internal prosthetic devices, implants and grafts, initial encounter (principal); I50.23 Acute on chronic systolic (congestive) heart failure; N18.6 End stage renal disease; U07.1 COVID-19; E87.20 Acidosis, unspecified; E87.1 Hypo-osmolality and hyponatremia; I13.2 Hypertensive heart and chronic kidney disease with heart failure and with stage 5 chronic kidney disease, or end stage renal disease; N30.01 Acute cystitis with hematuria; E11.22 Type 2 diabetes mellitus with diabetic chronic kidney disease; E11.65 Type 2 diabetes mellitus with hyperglycemia; E11.51 Type 2 diabetes mellitus with diabetic peripheral angiopathy without gangrene; E11.42 Type 2 diabetes mellitus with diabetic polyneuropathy; D63.1 Anemia in chronic kidney disease; E87.70 Fluid overload, unspecified; E78.00 Pure hypercholesterolemia, unspecified; E87.5 Hyperkalemia; E03.9 Hypothyroidism, unspecified; I25.2 Old myocardial infarction; B95.62 Methicillin resistant Staphylococcus aureus infection as the cause of diseases classified elsewhere; Z99.2 Dependence on renal dialysis; Z88.5 Allergy status to narcotic agent; Z95.5 Presence of coronary angioplasty implant and graft; Z88.8 Allergy status to other drugs, medicaments and biological substances; Z90.49 Acquired absence of other specified parts of digestive tract; Z79.01 Long term (current) use of anticoagulants; Z79.02 Long term (current) use of antithrombotics/antiplatelets; Z89.512 Acquired absence of left leg below knee; Z89.511 Acquired absence of right leg below knee; Z79.899 Other long term (current) drug therapy; Z91.158 Patient's noncompliance with renal dialysis for other reason; Z79.890 Hormone replacement therapy; Y84.8 Other medical procedures as the cause of abnormal reaction of the patient, or of later complication, without mention of misadventure at the time of the procedure
CPT/HCPCS: 0240U; 36415; 51702; 71045; 71250; 74176; 80048; 80076; 80202; 81001; 82947; 83605; 83690; 83735; 83880; 84100; 84484; 85025; 85027; 85610; 87040; 87070; 87086; 87088; 87804; 87811; 93005; 96365; 96367; 96368; 96375; 99285; C9113; G0378; J0692; J1170; J1644; J1815; J2550; J2765; J3475; J7030; J7050; Q0169; Q5106

== ENCOUNTER 2024-04-04 15:04 | Inpatient (IN) | payer BC ==
--- OUTSIDE RECORDS SUMMARY | 2024-04-04 15:07 | XMS REPORT | Clinical Summary ---
Author Name Unknown Organization [facility] Address [address] [place] [address] Care Team Providers Care Car Inspector Name Role Phone Brooke Steward MD Primary Care Provider [phone] Allergies Active Allergy Reactions Criticality Noted Date [...] tablet Take 1 tablet by mouth daily. 04/02/2019 Active insulin aspart U-100 (NovoLOG Flexpen U-100 Insulin) 100 unit/mL (3 mL) insulin pen Inject 35 Units under the skin twice daily. 04/10/2015 Active lisinopril (PRINIVIL,ZESTRIL) 10 mg tablet Take 20 mg by mouth daily. 04/02/2019 Active BYSTOLIC 5 mg tablet Take 1 tablet by mouth daily. 2 01/22/2019 Active Active Problems Problem Noted Date Diagnosed Date Left upper quadrant pain 07/05/2019 Overview: Added automatically from request for surgery [id number] Family history of malignant neoplasm of pancreas 07/05/2019 Overview: Added automatically from request for surgery [id number] Diarrhea 07/05/2019 Overview: Added automatically from request for surgery [id number] Family history of cancer of colon 07/05/2019 Overview: Added automatically from request for surgery [id number] Surgical History Surgery Date Site/Laterality Comments APPENDECTOMY 04/09/2019 - 05/09/2019 COLONOSCOPY 10/10/2014 - 10/09/2015 CHOLECYSTECTOMY 10/10/2003 - 10/09/2004 OR EDG US EXAM SURGICAL ALTER STOM DUODENUM/JEJUNUM [...] transfusion, without reported diagnosis 20 13 Osteomyelitis 2010 Diabetes mellitus 1996 Depressive disorder 2010 Anxiety [...] Due Date Last Done Comments COVID-19 Vaccine ( season) 2023 Influenza Vaccine 06/10/2024 Care Teams Car Inspector Relationship Specialty Start Date End Date Brooke Steward MD [facility] [place] [address] [email or web address] [email or web address] - General Gastroenterology, Hepatology and Nutrition 06/29/19
--- NOTE | 2024-04-04 15:45 | RAD REPORT ---
EXAM DESCRIPTION: US - Extremity Venous Uni Ltd - 04/04/2024 3:38 pm CLINICAL HISTORY: Pain COMPARISON: None. TECHNIQUE: Real-time sonographic evaluation of the right lower extremity deep venous system was perf ormed. FINDINGS: Normal compressibility, flow augmentation, phasic flow and spontaneous flow is identified in the right lower extremity deep venous system. No intraluminal filling defects seen. Note that the patient had a [id number] amputation. The common femoral vein, femoral vein, popliteal veins were interrogated. IMPRESSION: No DVT in the right lower extremity.
--- NOTE | 2024-04-04 16:12 | RAD REPORT ---
EXAM DESCRIPTION: CT - Lower Ext Wo Con W/ Mpr - 04/04/2024 3:48 pm CLINICAL HISTORY: leg pain while at dialysis COMPARISON: No comparisons TECHNIQUE: CT scan of the right lower extremity was obtained without contrast. All CT scans are per formed using dose optimization technique as appropriate and may include automated exposure control or mA/KV adjustment according to patient size. FINDINGS: Status post below the knee amputation. There is some cortical loss along the stump of the tibia. There is also soft tissue swelling and skin thickening. This could represent osteomyelitis. No fractures identified . Peripheral vascular calcifications. Degenerative changes are present at the r ight acetabulum and at the knee. IMPRESSION: No fracture identified. Status post [id number] amputation. Cortical loss at the tibi al stump could reflect osteomyelitis in the appropriate clinical setting.
[2024-04-04] MEDS ORDERED: HYDROMORPHONE HCL 0.5 MG/0.5 ML INJ ONE ×2 (16:28→17:49)
[2024-04-04] MEDS ORDERED: PROMETHAZINE INJ 25 MG/ML AMP ONE (16:28)
[2024-04-04 16:29] LABS: Absolute Basophils 0.1 K/uL (0-0.5); Absolute Eosinophils 0.3 K/uL (0-0.5); Absolute Lymphocytes (CBC) 1.1 K/uL (0.7-4.9); Absolute Monocytes 0.8 K/uL (0.1-1.3); Absolute Neutrophil 6.8 K/uL (1.8-8.0); Basophils % 0.9 % (0-1.3); Eosinophils % 3.4 % (0-4.4); Hematocrit 30.7 % (36.0-45.0); Hemoglobin 9.9 g/dL (12.0-15.0); Lymphocytes % 12.3 % (15.3-44.8); MCH 29.8 pg (27.0-35.0); MCHC 32.2 g/dL (32.0-36.0); MCV 92.6 fL (80-100); MPV 8.2 fL (7.6-11.3); Monocytes % 9.1 % (3.3-12.3); Neutrophils % 74.3 % (41.7-73.7); Platelets 365 thou/uL (152-406); RBC Red Blood Cell Count 3.32 M/uL (3.86-4.86)
[2024-04-04 16:33] LABS: PT Prothrombin Time 15.2 SECONDS (9.4-12.5); PTT, Activated Partial Thromb 36.9 SECONDS (24.3-36.9); Protime INR 1.4
[2024-04-04 16:48] LABS: Albumin 2.1 g/dL (3.4-5.0); Albumin/Globulin Ratio 0.4 (1.1-1.8); Alkaline Phosphatase 99 U/L (45-117); Anion Gap 13.8 mEq/L (5.0-15.0); BUN Blood Urea Nitrogen 46 mg/dL (7-18); Bicarbonate 24 mEq/L (21-32); Bilirubin Total 0.4 mg/dL (0.2-1.0); Globulin 5.2 g/dL (2.3-3.5); Glomerular Filtration Rate 6 ml/min (=/>90); Glucose Level 101 mg/dL (74-106); Potassium 3.8 mEq/L (3.5-5.1); Protein, Total 7.3 g/dL (6.4-8.2); Sodium Level 131 mEq/L (136-145)
[2024-04-04 16:49] LABS: AST/SGOT < 10 U/L (15-37)
[2024-04-04 16:50] LABS: ALT/SGPT < 14 U/L (13-56)
--- NOTE | 2024-04-04 17:18 | EDPHYS ---
Physician Documentation [facility] Name: Keiry Umaña Age: 48 yrs Sex: Female : 1975 Arrival Date: 04/04/2024 Time: 15:04 Bed 11 Private MD: ED Physician Brad Chapman HPI: 04/04 17:12 This 48 yrs old Female presents to ER via EMS with complaints of right leg pain, rn redness. 17:12 The patient presents with pain, tenderness. The complaints affect the lateral aspect of rn right thigh. Onset: The symptoms/episode began/occurred 1 week(s) ago. Modifying factors: The symptoms are alleviated by nothing. the symptoms are aggravated by movement. Severity of symptoms: At their worst the symptoms were moderate, in the emergency department the symptoms are unchanged. The patient has not experienced similar symptoms in the past. The patient has been recently seen by a physician:. Patient reports this all began with injury to the right hip, suffered a contusion while wrestling with a family member. Pain and swelling got worse, was evaluated at outside ER, diagnosed with hematoma with concern for infection, given antibiotics and did not improve. Went to PCP who prescribed another round of antibiotics and swelling and redness has worsened. Pain has worsened as well.. 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 - Infectious Disease History:: Denies. - Social history:: Smoking status: Patient denies any tobacco usage or history of. - Family history:: not pertinent. - Hospitalizations: : No recent hospitalization is reported. ROS: 17:12 Constitutional: Negative for fever, chills, and weight loss, Cardiovascular: Negative rn for chest pain, palpitations, and edema, Respiratory: Negative for shortness of breath, cough, wheezing, and pleuritic chest pain, Abdomen/GI: Negative for abdominal pain, nausea, vomiting, diarrhea, and constipation, MS/Extremity: Positive for pain/injury/redness to right lateral thigh Exam: 17:12 Constitutional: This is a well developed, well nourished patient who is awake, alert, rn appears in pain Cardiovascular: Regular rate and rhythm. No pulse deficits. Respiratory: No increased work of breathing, no retractions or nasal flaring. Abdomen/GI: Soft, non-tender MS/ Extremity: Pulses equal, no cyanosis. Tender to palpation right proximal and mid thigh with erythema and warmth overlying ecchymosis. Painful range of motion of the right lower extremity active and passively. No open wounds. No blisters. 19:00 ECG was reviewed by the Attending Physician. rn Vital Signs: 15:11 BP 113 / 80; Pulse 78; Resp 18; Temp 97.8; Pulse Ox 100% ; Weight 94.8 kg; Pain 9/10; as6 16:00 BP 114 / 66; Pulse 77; Resp 19; Pulse Ox 100% ; as6 17:15 BP 102 / 54; Pulse 68; Resp 16; Pulse Ox 95% ; as6 18:55 BP 115 / 70; Pulse 75; Resp 16; Temp 97.9; Pulse Ox 98% ; as6 15:11 Pain Scale: Adult as6 MDM: 15:13 Patient medically screened. rn 17:12 Differential diagnosis: contusion, Hematoma, infected hematoma, secondary cellulitis. rn Data reviewed: vital signs, nurses notes, lab test result(s), radiologic studies, CT scan, and as a result, I will admit patient. Consideration of Admission/Observation Patient was admitted/placed on observation. Escalation of care including admission/observation considered. Care significantly affected by the following chronic conditions: Diabetes, Chronic Kidney Disease. Counseling: I had a detailed discussion with the patient and/or guardian regarding the historical points, exam findings, and any diagnostic results supporting the discharge/admit diagnosis, lab results, radiology results, the need for further work-up and treatment in the hospital. ED course: Patient with worsening symptoms, began this what sounds like hematoma, possible infected hematoma now. CT imaging does not show deeper infection such as myositis. No fluid collections. Ultrasound negative for DVT. Will admit to hospital service for pain control and antibiotic coverage.. 04/04 15:20 Order name: Blood Culture Adult (2) rn 04/04 15:20 Order name: CBC with Diff; Complete Time: 16:54 rn 04/04 15:20 Order name: CMP; Complete Time: 16:54 rn 04/04 15:20 Order name: Lactate w/ 2H reflex if indic.; Complete Time: 16:54 rn 04/04 15:20 Order name: Protime (+inr); Complete Time: 16:54 rn 04/04 15:20 Order name: Ptt, Activated; Complete Time: 16:54 rn 04/04 18:20 Order name: Urinalysis w/ reflexes EDMS 04/04 18:20 Order name: Basic Metabolic Panel EDMS 04/04 18:20 Order name: Basic Metabolic Panel EDMS 04/04 18:20 Order name: Basic Metabolic Panel EDMS 04/04 18:20 Order name: Basic Metabolic Panel EDMS 04/04 18:20 Order name: Basic Metabolic Panel EDMS 04/04 18:20 Order name: Basic Metabolic Panel EDMS 04/04 18:20 Order name: CBC with Automated Diff EDMS 04/04 18:20 Order name: CBC with Automated Diff EDMS 04/04 18:20 Order name: CBC with Automated Diff EDMS 04/04 18:20 Order name: CBC with Automated Diff EDMS 04/04 18:20 Order name: CBC with Automated Diff EDMS 04/04 18:20 Order name: CBC with Automated Diff EDMS 04/04 18:20 Order name: Magnesium EDMS 04/04 18:20 Order name: Magnesium EDMS 04/04 18:20 Order name: Magnesium EDMS 04/04 18:20 Order name: Magnesium EDMS 04/04 18:20 Order name: Magnesium EDMS 04/04 18:20 Order name: Magnesium EDMS 04/04 18:20 Order name: Phosphorus EDMS 04/04 18:20 Order name: Phosphorus EDMS 04/04 18:20 Order name: Phosphorus EDMS 04/04 18:20 Order name: Phosphorus EDMS 04/04 18:20 Order name: Phosphorus EDMS 04/04 18:20 Order name: Phosphorus EDMS 04/04 15:21 Order name: Extremity Venous Uni Ltd US; Complete Time: 16:17 rn 04/04 15:26 Order name: Lower Ext Wo Con W/ Mpr; Complete Time: 16:17 EDMS 04/04 15:20 Order name: EKG; Complete Time: 15:21 rn 04/04 15:20 Order name: Accucheck; Complete Time: 16:24 rn 04/04 15:20 Order name: Cardiac monitoring; Complete Time: 16:24 rn 04/04 15:20 Order name: EKG - Nurse/Tech; Complete Time: 16:24 rn 04/04 15:20 Order name: IV Saline Lock - Large Bore; Complete Time: 16:24 rn 04/04 15:20 Order name: Labs collected and sent; Complete Time: 16:24 rn 04/04 15:20 Order name: O2 Per Protocol; Complete Time: 15:34 rn 04/04 15:20 Order name: O2 Sat Monitoring; Complete Time: 15:34 rn 04/04 15:20 Order name: Vital Signs; Complete Time: :34 rn EC:00 Rate is 74 beats/min. Rhythm is regular. QRS [place] is Normal. TN interval is normal. QRS rn interval is normal. No Q waves. T waves are Inverted in leads II, III, aVF. No ST changes noted. Clinical impression: NSR w/ Non-specific ST/T Changes. Interpreted by me. Reviewed by me. Administered Medications: 16:27 Drug: HYDROmorphone IVP 0.5 mg IVP once Route: IVP; Site: left forearm; as6 19:29 Follow up: Response: No adverse reaction as6 16:27 Drug: Promethazine IVP 6.25 mg IVP once Route: IVP; Site: left forearm; as6 19:30 Follow up: Response: No adverse reaction as6 17:30 Drug: vancoMYCIN IVPB 1 grams IVPB once over 2 hrs Route: IVPB; Infused Over: 2 hrs; as6 Site: left forearm; 19:30 Follow up: Response: No adverse reaction; IV Status: Completed infusion; IV Intake: as6 250ml 17:53 Drug: HYDROmorphone IVP 0.5 mg IVP once Route: IVP; Site: left forearm; as6 19:30 Follow up: Response: No adverse reaction as6 Disposition Summary: 04/04/24 17:17 Hospitalization Ordered Notes: Hospitalization Status: Observation rn Provider: Dianne Roberts rn [facility]) rn Condition: Stable rn Problem: an ongoing problem rn Symptoms: have worsened rn Bed/Room Type: Standard rn Room Assignment: 406(04/04/24 18:49) karma Diagnosis - Cellulitis of right lower limb rn - Traumatic hematoma right lower extremity rn Forms: - Medication Reconciliation Form rn - SBAR form rn - Leadership Thank You Letter rn Signatures: Dispatcher [employer] Gabriella Weaver RN RN dw Nieto, Roman, MD MD rn Slawson, Ashby, RN RN as6 Corrections: (The following items were deleted from the chart) 18:49 17:17 cristian parada
--- NOTE | 2024-04-04 17:18 | ER ---
Nurse's Notes [facility] Name: Keiry Umaña Age: 48 yrs Sex: Female : 1975 Arrival Date: 04/04/2024 Time: 15:04 Bed 11 Private MD: Diagnosis: Cellulitis of right lower limb;Traumatic hematoma right lower extremity Presentation: 04/04 15:16 Coronavirus screen: At this time, the client does not indicate any symptoms associated as6 with coronavirus-19. Ebola Screen: No symptoms or risks identified at this time. Initial Sepsis Screen: Does the patient meet any 2 criteria? No. Patient's initial sepsis screen is negative. Does the patient have a suspected source of infection? No. Patient's initial sepsis screen is negative. Risk Assessment: Do you want to hurt yourself or someone else? Patient reports no desire to harm self or others. Onset of symptoms was March 25, 2024. 15:16 Acuity: CHERYL 3 as6 15:16 Method Of Arrival: EMS: [facility] as6 15:16 Chief complaint: EMS states: called out for right hip pain. on \E\16 pt started with a as6 small bruise to her hip and the pain and bruising has spread. Triage Assessment: 15:12 General: Appears uncomfortable, Behavior is calm, cooperative. Pain: Complains of pain as6 in right hip and lateral aspect of right thigh. Respiratory: Respiratory effort is even, unlabored, Respiratory pattern is regular, symmetrical. Derm: Bruising that is bright red, on lateral aspect of right thigh. Musculoskeletal: Amputation of BKA. 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 - Infectious Disease History:: Denies. - Social history:: Smoking status: Patient denies any tobacco usage or history of. - Family history:: not pertinent. - Hospitalizations: : No recent hospitalization is reported. Screenin:53 [facility] ED Fall Risk Assessment (Adult) History of falling in the last 3 months, as6 including since admission No falls in past 3 months (0 pts) Confusion or Disorientation No (0 pts) Intoxicated or Sedated No (0 pts) Impaired Gait Yes (1 pt) Mobility Assist Device Used No (0 pt) Altered Elimination No (0 pt) Score/Fall Risk Level 0 - 2 = Low Risk Oriented to surroundings, Maintained a safe environment, Educated pt \T\ family on fall prevention, incl call for assistance when getting out of bed, Assessed \T\ reinforced patient's understanding of fall precautions. Abuse screen: Denies threats or abuse. Denies injuries from another. Nutritional screening: No deficits noted. Tuberculosis screening: No symptoms or risk factors identified. Assessment: 17:15 Reassessment: Patient appears in no apparent distress at this time. Patient and/or as6 family updated on plan of care and expected duration. Pain level reassessed. Patient is alert, oriented x 3, equal unlabored respirations, skin warm/dry/pink. Patient states feeling better. Vital Signs: 15:11 BP 113 / 80; Pulse 78; Resp 18; Temp 97.8; Pulse Ox 100% ; Weight 94.8 kg; Pain 9/10; as6 16:00 BP 114 / 66; Pulse 77; Resp 19; Pulse Ox 100% ; as6 17:15 BP 102 / 54; Pulse 68; Resp 16; Pulse Ox 95% ; as6 18:55 BP 115 / 70; Pulse 75; Resp 16; Temp 97.9; Pulse Ox 98% ; as6 15:11 Pain Scale: Adult as6 ED Course: 15:11 Patient arrived in ED. as6 15:11 Arm band placed on left wrist. as6 15:13 Brad Chapman MD is Attending Physician. rn 15:16 Triage completed. as6 15:[address], CHERI is Primary Nurse. as6 15:39 Extremity Venous Uni Ltd US In Process Unspecified. EDMS 15:49 Lower Ext Wo Con W/ Mpr In Process Unspecified. EDMS 16:20 Inserted saline lock: 22 gauge in left forearm, using aseptic technique. Blood as6 collected. 16:24 Ptt, Activated Sent. as6 16:24 Protime (+inr) Sent. as6 16:24 Lactate w/ 2H reflex if indic. Sent. as6 16:24 CMP Sent. as6 16:24 CBC with Diff Sent. as6 16:24 Blood Culture Adult (2) Sent. as6 17:16 Dianne Roberts MD is Hospitalizing Provider. rn 18:53 Patient requests pain medication. as6 18:54 Bed in low position. Call light in reach. Side rails up X2. Provided Education on: need as6 for admit . Warm blanket given. 18:54 No provider procedures requiring assistance completed. Patient admitted, IV remains in as6 place. Administered Medications: 16:27 Drug: HYDROmorphone IVP 0.5 mg IVP once Route: IVP; Site: left forearm; as6 19:29 Follow up: Response: No adverse reaction as6 16:27 Drug: Promethazine IVP 6.25 mg IVP once Route: IVP; Site: left forearm; as6 19:30 Follow up: Response: No adverse reaction as6 17:30 Drug: vancoMYCIN IVPB 1 grams IVPB once over 2 hrs Route: IVPB; Infused Over: 2 hrs; as6 Site: left forearm; 19:30 Follow up: Response: No adverse reaction; IV Status: Completed infusion; IV Intake: as6 250ml 17:53 Drug: HYDROmorphone IVP 0.5 mg IVP once Route: IVP; Site: left forearm; as6 19:30 Follow up: Response: No adverse reaction as6 Medication: 18:53 VIS not applicable for this client. as6 Intake: 19:30 IV: 250ml; Total: 250ml. as6 Outcome: 17:17 Decision to Hospitalize by Provider. rn 18:55 Condition: stable as6 18:55 Instructed on the need for admit, 19:59 Patient left the ED. as6 Signatures: Dispatcher [employer] EDBrad De Dios MD MD rn Slawson, Ashby, RN RN as6
[2024-04-04] MEDS ORDERED: NA CHLORIDE 0.9% 250 ML ONE (17:22)
[2024-04-04] MEDS ORDERED: VANCOMYCIN 1 GM/VIAL ONE (17:22)
--- NOTE | 2024-04-04 17:47 | P.HP ---
Certification for Inpatient Patient admitted to: Inpatient With expected LOS: >2 Midnights Patient will require the following post-hospital care: None Practitioner: I am a practitioner with admitting privileges, knowledge of patient current condition, hospital course, and medical plan of care. Services: Services provided to patient in accordance with Admission requirements found in Title 42 Section 412.3 of the Code of Federal Regulations Patient History Date of Service: 04/04/24 Reason for admission: Right leg trauma History of Present Illness: Keiry Umaña is a 48 year old female with Pmhx Hypertension, hyperlipidemia, diabetes mellitusIDDM, depression, peritoneal dialysis, end-stage renal disease, bilateral BKA who presents to the ED with chief complaint of right lower extremity trauma while playing with her grandchild. She reports going to the urgent care and was given antibiotics but the bruising and tenderness worsened. She saw her electronic equipment maint tech who also gave her antibiotics. She states she is not able to use her prosthesis due to the swelling. On examination, lateral aspect of left thigh with erythema and bruising, afebrile, c/o pain to lateral and anterior right thigh. Ultrasound showing No DVT in the right lower extremity. CT without contrast showing No fracture identified. Status post [id number] amputation. Cortical loss at the tibial stump could reflect osteomyelitis in the appropriate clinical setting. Laboratory evaluation significant for BUN/creatinine 46/7.84, GFR 6 on peritoneal dialysis which her will be bringing supplies to accomplish dialysis while inpatient. Keiry will be admitted to hospitalist service for IV antibiotics for right lower extremity trauma likely significant for infection. Allergies ketamine Allergy (Severe, Verified 03/19/19 22:45) Anaphylaxis morphine Allergy (Intermediate, Verified 11/28/17 00:51) Anaphylaxis Home Medications: Atorvastatin Calcium [Lipitor] 40 mg PO BEDTIME #30 tab 01/12/24 Bumetanide [Bumex*] 2 mg PO BIDL #120 tab 01/12/24 Docusate [Colace Cap*] 100 mg PO BID #60 cap 01/12/24 Hydrocodone 10/APAP 325 [Leckrone 10/325*] 1 tab PO Q6H PRN #15 tab 01/12/24 Promethazine Tab [Phenergan*] 25 mg PO Q8H PRN #30 tab 01/12/24 Sevelamer Carbonate [Renvela*] 1,600 mg PO TIDWM #180 tab 01/12/24 Apixaban [Eliquis] 5 mg PO BID 01/16/24 Carvedilol [Coreg] 25 mg PO BID 01/16/24 Clopidogrel Bisulfate [Plavix] 75 mg PO DAILY 01/16/24 Doxepin HCl 6 mg PO BEDTIME 01/16/24 Levothyroxine [Synthroid] 50 mcg PO [id number] 01/16/24 Sacubitril/Valsartan [Entresto 49 mg-51 mg Tablet] 1 tab PO BID 01/16/24 Sertraline [Zoloft] 100 mg PO DAILY 01/16/24 - Past Medical/Surgical History Diabetic: Yes -: Hypertension -: Hyperlipidemia -: IDDM -: Depression -: Peritoneal dialysis -: ESRD -: Appendectomy -: Cholecystectomy -: Bilateral BKAs -: Peritoneal dialysis catheter placement Psychosocial/ Personal History: Patient lives at home with her family and 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 Mother -: Heart disease, Diabetes, Stroke Notes: - Social History Alcohol use: No CD- Drugs: No Caffeine use: Yes Review of Systems Musculoskeletal: Other (right lower extremity pain) Physical Examination - Physical Exam General: Alert, In no apparent distress, Oriented x3 HEENT: Atraumatic, Normocephalic Neck: Supple, JVD not distended Respiratory: Clear to auscultation bilaterally, Normal air movement Cardiovascular: Normal pulses, Regular rate/rhythm, Normal S1 S2 Capillary refill: <2 Seconds Gastrointestinal: Normal bowel sounds, Soft and benign, Distended (obese) Musculoskeletal: No clubbing, Erythema (right thigh), Other (bilateral BKA, multiple finger amputations) Integumentary: No rashes, Skin breakdown (multiple on hands) Neurological: Normal speech, Normal tone - Studies Laboratory Data (last 24 hrs) 04/04/24 04/04/24 04/04/24 16:21 16:21 16:21 WBC 9.10 Hgb 9.9 L Hct 30.7 L Plt Count 365 PT 15.2 H INR 1.40 APTT 36.9 Sodium 131 L Potassium 3.8 BUN 46 H Creatinine 7.84 H Glucose 101 Total Bilirubin 0.4 AST < 10 L ALT < 14 Alkaline Phosphatase 99 Assessment and Plan - Plan Assessment and plan Right lower extremity trauma/infection -CT without contrast showing No fracture identified. Status post [id number] amputation. Cortical loss at the tibial stump could reflect osteomyelitis in the appropriate clinical setting. -Ultrasound showing No DVT in the right lower extremity -Supportive care -IV antibiotic -Pain control -Follow blood cultures Diabetes mellitusIDDM -Accu-Check with sliding scale insulin End-stage renal disease -Peritoneal dialysis -BUN/creatinine 46/7.84, GFR 6 History HTN/HLD History of depression History of bilateral BKA History of hypothyroidism History of CHF History of CAD with coronary stents -Continue home medications DVT PPx Full code LOS 2 days Discharge Plan: Home Plan to discharge in: 48 Hours - Advance Directives Does patient have a Living Will: Yes Does patient have a Durable POA for Healthcare: No
[2024-04-04] MEDS ORDERED: ACETAMINOPHEN 500 MG TAB PO PRN ×2 (18:12→18:16)
[2024-04-04] MEDS ORDERED: ONDANSETRON 4 MG/2 ML VIAL IV PRN (18:16)
[2024-04-04] MEDS: VANCOMYCIN 1 GM in NA CHLORIDE 0.9% 250 ML IVPB SCH (18:17)
[2024-04-04] MEDS: INSULIN REGULAR (HUMAN) 100 UNIT/ML SQ SCH (21:00)
[2024-04-04 21:09] VITALS: BMI 28.3
[2024-04-04] MEDS: HYDROMORPHONE HCL 0.5 MG/0.5 ML INJ IV PRN (21:34)
[2024-04-04] MEDS: PROMETHAZINE INJ 25 MG/ML AMP IV PRN (21:38)
[2024-04-05 06:47] LABS: Absolute Basophils 0.1 K/uL (0-0.5); Absolute Eosinophils 0.4 K/uL (0-0.5); Absolute Monocytes 0.9 K/uL (0.1-1.3); Absolute Neutrophil 4.9 K/uL (1.8-8.0); Basophils % 1.2 % (0-1.3); Eosinophils % 5.5 % (0-4.4); Hematocrit 34.1 % (36.0-45.0); Hemoglobin 11.2 g/dL (12.0-15.0); Lymphocytes % 14.1 % (15.3-44.8); MCH 30.6 pg (27.0-35.0); MCHC 32.9 g/dL (32.0-36.0); Monocytes % 11.9 % (3.3-12.3); Neutrophils % 67.3 % (41.7-73.7); Nucleated Red Blood Cells % 0.2 % (0-0); Platelets 357 thou/uL (152-406); RBC Red Blood Cell Count 3.67 M/uL (3.86-4.86)
[2024-04-05 06:52] LABS: Anion Gap 14.5 mEq/L (5.0-15.0); Magnesium 1.5 mg/dL (1.6-2.4); Phosphorus 6.3 mg/dL (2.5-4.9); Potassium 3.5 mEq/L (3.5-5.1)
--- NOTE | 2024-04-05 06:57 | P.CNS ---
Date of Consult: 04/05/24 Reason for Consult: ESRD Requesting Physician: humberto hardin Chief Complaint: Right leg trauma History of Present Illness: Keiry Umaña is a 48 year old female with Pmhx Hypertension, hyperlipidemia, diabetes mellitusIDDM, depression, peritoneal dialysis, end-stage renal disease, bilateral BKA who presents to the ED with chief complaint of right lower extremity trauma while playing with her grandchild. She reports going to the urgent care and was given antibiotics but the bruising and tenderness worsened. She saw her devulcanizer tender who also gave her antibiotics. She states she is not able to use her prosthesis due to the swelling. On examination, lateral aspect of left thigh with erythema and bruising, afebrile, c/o pain to lateral and anterior right thigh. Ultrasound showing No DVT in the right lower extremity. CT without contrast showing No fracture identified. Status post [id number] amputation. Cortical loss at the tibial stump could reflect osteomyelitis in the appropriate clinical setting. Laboratory evaluation significant for BUN/creatinine 46/7.84, GFR 6 on peritoneal dialysis which her will be bringing supplies to accomplish dialysis while inpatient. Keiry will be admitted to hospitalist service for IV antibiotics for right lower extremity trauma likely significant for infection. [id number] 17:12 This 48 yrs old Female presents to ER via EMS with complaints of right leg pain, rn redness. 17:12 The patient presents with pain, tenderness. The complaints affect the lateral aspect of rn right thigh. Onset: The symptoms/episode began/occurred 1 week(s) ago. Modifying factors: The symptoms are alleviated by nothing. the symptoms are aggravated by movement. Severity of symptoms: At their worst the symptoms were moderate, in the emergency department the symptoms are unchanged. The patient has not experienced similar symptoms in the past. The patient has been recently seen by a physician:. Patient reports this all began with injury to the right hip, suffered a contusion while wrestling with a family member. Pain and swelling got worse, was evaluated at outside ER, diagnosed with hematoma with concern for infection, given antibiotics and did not improve. Went to PCP who prescribed another round of antibiotics and swelling and redness has worsened. Pain has worsened as well.. Allergies ketamine Allergy (Severe, Verified 04/04/24 23:38) Anaphylaxis morphine Allergy (Intermediate, Verified 04/04/24 23:38) Anaphylaxis ondansetron [From Zofran] Adverse Reaction (Verified 04/05/24 01:09) Nausea/Vomiting Home medications list reviewed: Yes Home Medications: Apixaban [Eliquis] 5 mg PO BID 04/05/24 Atorvastatin Calcium [Lipitor] 40 mg PO BEDTIME 04/05/24 Furosemide [Lasix] 80 mg PO BID 04/05/24 Levothyroxine Sodium [Synthroid] 50 mcg PO DAILY 04/05/24 Sacubitril/Valsartan [Entresto 24 mg-26 mg Tablet] 1 tab PO BID 04/05/24 - Past Medical/Surgical History Diabetic: Yes -: HTN -: HLD -: IDDM -: Systolic Diastolic CHF/ Pulmonary HTN -: ESRD on PD (Dr. 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 Mother Medical History: Heart disease, Diabetes, Stroke Notes: - Social History Smoking Status: Never smoker Alcohol use: No CD- Drugs: No Caffeine use: Yes Place of Residence: Home Review of Systems 10-point ROS is otherwise unremarkable General: Malaise Integumentary: Bruising Physical Examination Temp Pulse Resp BP Pulse Ox 97.6 F 64 17 109/77 100 04/05/24 04:00 04/05/24 04:00 04/05/24 05:28 04/05/24 04:00 04/05/24 05:28 General: Oriented x3, Cooperative HEENT: Atraumatic Neck: Supple Respiratory: Normal air movement Cardiovascular: Regular rate/rhythm, Edema Gastrointestinal: Soft and benign, Non-distended Musculoskeletal: No clubbing, No contractures Integumentary: No rashes, Tenderness/swelling Neurological: Normal speech Laboratory Data (last 24 hrs) 04/04/24 04/04/24 04/04/24 16:21 16:21 16:21 WBC 9.10 Hgb 9.9 L Hct 30.7 L Plt Count 365 PT 15.2 H INR 1.40 APTT 36.9 Sodium 131 L Potassium 3.8 BUN 46 H Creatinine 7.84 H Glucose 101 Total Bilirubin 0.4 AST < 10 L ALT < 14 Alkaline Phosphatase 99 Imagings Data: EXAM DESCRIPTION: CT - Lower Ext Wo Con W/ Mpr - 04/04/2024 3:48 pm CLINICAL HISTORY: leg pain while at dialysis COMPARISON: No comparisons TECHNIQUE: CT scan of the right lower extremity was obtained without contrast. All CT scans are performed using dose optimization technique as appropriate and may include automated exposure control or mA/KV adjustment according to patient size. FINDINGS: Status post below the knee amputation. There is some cortical loss jose armando ng the stump of the tibia. There is also soft tissue swelling and skin thickening. This could represent osteomyelitis. No fractures identified . Peripheral vascular calcifications. Degenerative changes are present at the right acetabulum and at the knee. IMPRESSION: No fracture identified. Status post [id number] amputation. Cortical loss at the tibial stump could reflect osteomyelitis in the appropriate clinical setting. EXAM DESCRIPTION: US - Extremity Venous Uni Ltd - 04/04/2024 3:38 pm CLINICAL HISTORY: Pain COMPARISON: None. TECHNIQUE: Real-time sonographic evaluation of the right lower extremity deep venous system was performed. FINDINGS: Normal compressibility, flow augmentation, phasic flow and spontaneous flow is identified in the right lower extremity deep venous system. No intraluminal filling defects seen. Note that the patient had a pichw-xmp-irju amputation. The common femoral vein, femoral vein, popliteal veins were in terrogated. IMPRESSION: No DVT in the right lower extremity. LEFT VENTRICULAR WALL MOTION: SEVERE GLOBAL HYPOKINESIS DOPPLER/COLOR FLOW: DIASTOLIC DYSFUNCTION COMMENTS: 1. SEVERE REDUCED LEFT VENTRICULAR SYSTOLIC FUNCTION, EJECTION FRACTION 10-15%, SEVERE GLOBAL HYPOKINESIS 2. DIASTOLIC DYSFUNCTION 3. ELEVATED RIGHT ATRIAL FILLING PRESSURE (GREATER THAN 20 mmHg), MODERATE PULMONARY HYPERTENSION (RIGHT VENTRICULAR SYSTOLIC PRESSURE 50-55 mmHg) Conclusions/Impression: ESRD on PD -PD as ordered Hyponatremia -Fluid restriction Hypokalemia -Replete as ordered Hypomagnesemia -Replete mag as ordered HTN with CKD/ CHF -Hold Entresto at this time due to hypotension Systolic Diastolic CHF, chronic Moderate Pulmonary HTN -PD with UF -Low sodium diet -Daily weight DM II with CKD, Polyneuropathy & Peripheral Angiopathy -RISS Anemia in CKD -Retacrit prn CKD MBD -Start Calcitriol -Start Renvela Right posterior lateral thigh hematoma Right posterior lateral thigh pain -Continue abx for possible infection; renal dosing -Follow up cx -Dilaudid prn Case reviewed with Dr. Hardin Thank you kindly for the consultation
[2024-04-05] MEDS: CALCITROL 0.25 MCG CAP PO SCH (09:32)
[2024-04-05] MEDS: DRISDOL (VITAMIN D=ERGOCALCIFEROL) 50000 UNIT CAP PO SCH (09:32)
[2024-04-05] MEDS: POTASSIUM CL SA 10 MEQ TAB PO ONE (09:32)
[2024-04-05] MEDS: MULTIVITAMINS,THERAPEUT 1 TAB PO SCH (09:32)
[2024-04-05] MEDS: SEVELAMER CARBONATE 800 MG TABLET PO SCH (09:32)
[2024-04-05] MEDS: DOCUSATE NA 100 MG CAP PO SCH (09:32)
[2024-04-05] MEDS: VANCOMYCIN 1 GM in NA CHLORIDE 0.9% 250 ML IVPB ONE (09:32)
[2024-04-05] MEDS: Magnesium Sulfate 2gm IVPB 2 G/50 ML BAG IV ONE (09:33)
--- NOTE | 2024-04-05 14:08 | EKG ---
Test Date: 2024-04-04 Test Time: 16:00:25 Project Coordinator: MEASUREMENT RESULTS: Intervals: Rate: 74 MI: 142 QRSD: 110 QT: 462 QTc: 512 Sterling: P: 34 MI: 142 QRS: 67 T: 226 INTERPRETIVE STATEMENTS: Normal sinus rhythm Cannot rule out Anterior infarct, age undetermined T wave abnormality, consider inferior ischemia Prolonged QT Abnormal ECG Compared to ECG 01/15/2024 16:19:57 Myocardial infarct finding now present Possible ischemia now present T-wave abnormality still present Electronically Signed On 04-05-24 14:06:58 CDT by Angel Montelongo
--- NOTE | 2024-04-05 14:52 | P.PN ---
Date of Service: 04/05/24 Subjective Still complaining of pain, reports not sleeping well last night ROS 10 point ROS as noted above, otherwise negative Physical Exam General: Alert and oriented x3, uncomfortable HEENT: Atraumatic, Normocephalic Neck: Supple, JVD not distended Respiratory: Clear to auscultation bilaterally, Normal air movement Cardiovascular: Normal pulses, RRR, Normal S1 S2 Capillary refill: <2 Seconds Gastrointestinal: Normal bowel sounds, Soft and benign on palpation, Distended (obese) Musculoskeletal: No clubbing, Erythema (right thigh), Other (bilateral BKA, multiple finger amputations) Integumentary: No rashes, Skin breakdown (multiple on hands) Neurological: Normal speech, Normal tone Vitals Reviewed Problem list Right lower extremity trauma/infection Diabetes mellitusIDDM End-stage renal disease History HTN/HLD History of depression History of bilateral BKA History of hypothyroidism History of CHF History of CAD with coronary stents Assessment and Plan Right lower extremity trauma/infection -CT without contrast showing No fracture identified. Status post [id number] amputation. Cortical loss at the tibial stump could reflect osteomyelitis in the appropriate clinical setting. -Ultrasound showing No DVT in the right lower extremity -Supportive care -IV antibiotic -Pain control -blood cultures-NGTD Diabetes mellitusIDDM -Accu-Check with sliding scale insulin End-stage renal disease Hypomangesemia -Peritoneal dialysis -BUN/creatinine 41/7.55, GFR 6 -Dr. Suh consulted -replete PRN History HTN/HLD History of depression History of bilateral BKA History of hypothyroidism History of CHF History of CAD with coronary stents -Continue home medications DVT PPx Full code LOS 2 days
[2024-04-05] MEDS ORDERED: VANCOMYCIN 1 GM in NA CHLORIDE 0.9% 250 ML IVPB SCH (18:00)
[2024-04-05] MEDS: HYDROCODONE/APAP 10/325 TAB PO PRN (19:50)
[2024-04-06] MEDS: CALCIUM CARBONATE CHEW 500MG TAB PO PRN (05:01)
[2024-04-06 07:31] LABS: Absolute Basophils 0.1 K/uL (0-0.5); Absolute Eosinophils 0.4 K/uL (0-0.5); Absolute Monocytes 0.8 K/uL (0.1-1.3); Absolute Neutrophil 6.2 K/uL (1.8-8.0); Basophils % 1.2 % (0-1.3); Eosinophils % 5.1 % (0-4.4); Hematocrit 28.3 % (36.0-45.0); Hemoglobin 9.4 g/dL (12.0-15.0); Lymphocytes % 12.2 % (15.3-44.8); MCH 30.6 pg (27.0-35.0); MCHC 33.4 g/dL (32.0-36.0); MCV 91.7 fL (80-100); MPV 7.9 fL (7.6-11.3); Neutrophils % 72.5 % (41.7-73.7); Nucleated Red Blood Cells % 0.1 % (0-0); Platelets 338 thou/uL (152-406); RBC Red Blood Cell Count 3.09 M/uL (3.86-4.86); Red Cell Distribution Width 16.1 % (12.1-15.2)
[2024-04-06 07:50] LABS: Anion Gap 12.9 mEq/L (5.0-15.0); Magnesium 1.9 mg/dL (1.6-2.4); Phosphorus 7.1 mg/dL (2.5-4.9); Potassium 3.9 mEq/L (3.5-5.1)
--- NOTE | 2024-04-06 09:49 | P.PN ---
Date of Service: 04/06/24 Subjective Still complaining of pain to RLE Slightly better today No acute events overnight ROS 10 point ROS as noted above, otherwise negative Physical Exam General: Alert and oriented x3, uncomfortable HEENT: Atraumatic, Normocephalic Neck: Supple, JVD not distended Respiratory: Clear to auscultation bilaterally, Normal air movement Cardiovascular: Normal pulses, RRR, Normal S1 S2 Capillary refill: <2 Seconds Gastrointestinal: Normal bowel sounds, Soft and benign on palpation, Distended (obese) Musculoskeletal: No clubbing, Erythema (right thigh), Other (bilateral BKA, multiple finger amputations) Integumentary: No rashes, Skin breakdown (multiple on hands) Neurological: Normal speech, Normal tone Vitals Reviewed Problem list Right lower extremity hematoma with possible secondary infection/cellulitis Diabetes mellitusIDDM End-stage renal disease History HTN/HLD History of depression History of bilateral BKA History of hypothyroidism History of CHF History of CAD with coronary stents Plan Right lower extremity hematoma with possible secondary infection/cellulitis CT without contrast showing No fracture identified. Status post [id number] amputation. Cortical loss at the tibial stump could reflect osteomyelitis in the appropriate clinical setting. Ultrasound showing No DVT in the right lower extremity IV antibiotic- vancomycin Blood cultures-NGTD Diabetes mellitusIDDM -Accu-Check with sliding scale insulin End-stage renal disease Hypomangesemia -Peritoneal dialysis -BUN/creatinine 41/7.55, GFR 6 -Dr. Suh consulted -replete PRN History HTN/HLD History of depression History of bilateral BKA History of hypothyroidism History of CHF History of CAD with coronary stents Home meds continues DVT PPx-eliquis continued Full code LOS 1-2 days
--- NOTE | 2024-04-06 11:59 | P.PN ---
(S) Pt reports pain a bit better controlled but has also been getting IV Dilaudid, a bit more ambulatory yesterday, no issues overnight with CCPD, total UF ~ 548 ml Vitals reviewed in the EMR General: Oriented x3, Cooperative HEENT: Atraumatic, sclera anicteric, not needing O2 Neck: Supple Respiratory: Normal air movement, no rales or wheezes Cardiovascular: Regular rate/rhythm mostly Gastrointestinal: Soft and benign, obese, PD catheter present Musculoskeletal: b/l amputations Integumentary: Some SC edema, induration and mild erythema vs bruising over Rt lateral thigh, some TTP Neurological: Normal speech, alert, non focal Laboratory data: Reviewed in the EMR Imagings Data: Conclusions/Impression: ESRD on PD -Cont CCPD per home prescription, metab profile overall stable. Hyperphosphatemia -Increase phos binders dose Systolic Diastolic CHF, chronic. Severe ischemic CMP Moderate Pulmonary HTN -Compensated, cont diuretics, cont vol regulation, monitor UF closely on CCPD, pt counseled Right posterior lateral thigh pain -Questionable cellulitis vs other -Consider checking inflammatory markers, procal -Complete PO Abx course since Abx initiated
[2024-04-06] MEDS ORDERED: VANCOMYCIN 1 GM in NA CHLORIDE 0.9% 250 ML IVPB SCH ×2 (12:00→18:00)
[2024-04-06] MEDS: SEVELAMER CARBONATE 800 MG TABLET PO SCH (12:20)
[2024-04-06] MEDS: levoFLOXacin 500 MG TAB PO ONE (12:20)
[2024-04-06] MEDS: DOXYCYCLINE 100 MG CAP PO SCH (12:21)
[2024-04-06] MEDS: HYDROMORPHONE ORAL 2 MG TAB PO PRN ×2 (13:29→19:52)
[2024-04-06] MEDS: HYDROMORPHONE ORAL 2 MG TAB PO ONE (15:19)
--- NOTE | 2024-04-06 16:27 | P.DS ---
Admission Date: 04/04/24 Discharge Date: 04/06/24 Disposition: ROUTINE DISCHARGE Discharge Condition: FAIR Reason for Admission: Right leg trauma Consultations: Nephrology-Dr. Bonilla/Dr. Suh Brief History of Present Illness: Keiry Umaña is a 48 year old female with Pmhx Hypertension, hyperlipidemia, diabetes mellitusIDDM, depression, peritoneal dialysis, end-stage renal disease, bilateral BKA who presents to the ED with chief complaint of right lower extremity trauma while playing with her grandchild. She reports going to the urgent care and was given antibiotics but the bruising and tenderness worsened. She saw her director corporate sales who also gave her antibiotics. She states she is not able to use her prosthesis due to the swelling. On examination, lateral aspect of left thigh with erythema and bruising, afebrile, c/o pain to lateral and anterior right thigh. Ultrasound showing No DVT in the right lower extremity. CT without contrast showing No fracture identified. Status post [id number]-[id number] amputation. Cortical loss at the tibial stump could reflect osteomyelitis in the appropriate clinical setting. Laboratory evaluation significant for BUN/creatinine 46/7.84, GFR 6 on peritoneal dialysis which her will be bringing supplies to accomplish dialysis while inpatient. Hospital Course: Problem list Right lower extremity hematoma with possible secondary infection/cellulitis Diabetes mellitusIDDM End-stage renal disease History HTN/HLD History of depression History of bilateral BKA History of hypothyroidism History of CHF History of CAD with coronary stents Patient was admitted to the hospital for right lateral thigh pain with concern for possible hematoma versus superimposed infectious process/cellulitis. She was initially treated with IV vancomycin but did not have significant improvement in her symptoms although she was having a lot of pain. She does take Eliquis at home, it is thought that this may be a large area of bruising which is contributing to the swelling, pain in the area of the there is risk for infection/cellulitis in this area. She had a significant amount of pain requiring opioids for management, was transition to oral hydromorphone prior to discharge, after further discussion with nephrology it was decided to cover her for possible infectious process in the leg as well at discharge. Patient will be prescribed levofloxacin 250 mg every 48 hours starting on 04/08 with 3 tabs prescribed, also doxycycline 100 mg by mouth twice daily for 1 week. Please follow-up with your primary care doctor 1 to 2 weeks Please also follow-up with nephrology in 1 to 2 weeks or as previously scheduled Continue outpatient peritoneal dialysis as ordered Prescriptions for antibiotics/pain medicine sent to [facility] [place] [facility] ordered on 04/06/24 (pending authorization): [facility] Patient Address: [address] [place], [place] [id number], [place] [address] Vital Signs/Physical Exam: Temp Pulse Resp BP Pulse Ox 97.2 F 73 18 129/61 99 04/06/24 12:00 04/06/24 12:00 04/06/24 15:19 04/06/24 12:00 04/06/24 15:19 General: Alert, In no apparent distress, Oriented x3 HEENT: Atraumatic, PERRLA Neck: Supple, JVD not distended Respiratory: Clear to auscultation bilaterally, Normal air movement Cardiovascular: Regular rate/rhythm, Normal S1 S2 Gastrointestinal: Normal bowel sounds Musculoskeletal: No tenderness, Other (Area of bruising/induration to right lateral thigh, FLOWER AKA) Integumentary: No rashes Neurological: Normal speech, Normal tone, Normal affect Laboratory Data at Discharge: WBC 8.50 thou/uL (4.3-10.9) 04/06/24 06:50 Hgb 9.4 g/dL (12.0-15.0) L D 04/06/24 06:50 Hct 28.3 % (36.0-45.0) L 04/06/24 06:50 Plt Count 338 thou/uL (152-406) 04/06/24 06:50 PT 15.2 SECONDS (9.4-12.5) H 04/04/24 16:21 INR 1.40 04/04/24 16:21 APTT 36.9 SECONDS (24.3-36.9) 04/04/24 16:21 Sodium 132 mEq/L (136-145) L 04/06/24 06:50 Potassium 3.9 mEq/L (3.5-5.1) 04/06/24 06:50 BUN 44 mg/dL (7-18) H 04/06/24 06:50 Creatinine 7.42 mg/dL (0.55-1.02) H 04/06/24 06:50 Glucose 161 mg/dL (74-106) H 04/06/24 06:50 Phosphorus 7.1 mg/dL (2.5-4.9) H 04/06/24 06:50 Magnesium 1.9 mg/dL (1.6-2.4) 04/06/24 06:50 Total Bilirubin 0.4 mg/dL (0.2-1.0) 04/04/24 16:21 AST < 10 U/L (15-37) L 04/04/24 16:21 ALT < 14 U/L (13-56) 04/04/24 16:21 Alkaline Phosphatase 99 U/L (45-117) 04/04/24 16:21 Home Medications: Apixaban [Eliquis] 5 mg PO BID 04/05/24 Atorvastatin Calcium [Lipitor] 40 mg PO BEDTIME 04/05/24 Furosemide [Lasix] 80 mg PO BID 04/05/24 Levothyroxine Sodium [Synthroid] 50 mcg PO DAILY 04/05/24 Sacubitril/Valsartan [Entresto 24 mg-26 mg Tablet] 1 tab PO BID 04/05/24 Calcitrol [Rocaltrol*] 0.5 mcg PO DAILY #60 cap 04/06/24 Docusate [Colace Cap*] 100 mg PO BID #60 cap 04/06/24 Doxycycline Hyclate 100 mg PO BID 7 Days #14 cap 04/06/24 Sevelamer Carbonate [Renvela*] 1,600 mg PO TIDWM #0 04/06/24 Vitamin D [Drisdol*] 50,000 unit PO Q48H cap 04/06/24 levoFLOXacin [Levaquin*] 250 mg PO Q48H #3 tab 04/06/24 New Medications: Docusate [Colace Cap*] 100 mg PO BID #60 cap Doxycycline Hyclate 100 mg PO BID 7 Days #14 cap levoFLOXacin [Levaquin*] 250 mg PO Q48H #3 tab Calcitrol [Rocaltrol*] 0.5 mcg PO DAILY #60 cap Physician Discharge Instructions: Patient was admitted to the hospital for right lateral thigh pain with concern for possible hematoma versus superimposed infectious process/cellulitis. She was initially treated with IV vancomycin but did not have significant improvement in her symptoms although she was having a lot of pain. She does take Eliquis at home, it is thought that this may be a large area of bruising which is contributing to the swelling, pain in the area of the there is risk for infection/cellulitis in this area. She had a significant amount of pain requiring opioids for management, was transition to oral hydromorphone prior to discharge, after further discussion with nephrology it was decided to cover her for possible infectious process in the leg as well at discharge. Patient will be prescribed levofloxacin 250 mg every 48 hours starting on 04/08 with 3 tabs prescribed, also doxycycline 100 mg by mouth twice daily for 1 week. Please follow-up with your primary care doctor 1 to 2 weeks Please also follow-up with nephrology in 1 to 2 weeks or as previously scheduled Continue outpatient peritoneal dialysis as ordered Prescriptions for antibiotics/pain medicine sent to [facility] ordered on 04/06/24 (pending authorization): [facility] Patient Address: [address] [place] [address], [place] [address] Diet: Renal Activity: Fall precautions Followup: Richard Suh DO [ACTIVE - CAN ADMIT] - 1-2 Weeks Akira Suero FNP [Primary Care Provider] - 1-2 Weeks Time spent managing pt's care (in minutes): 35
[2024-04-06] MEDS: HYDROMORPHONE HCL 1 MG/ML INJ IV ONE ×3 (16:39→21:17)
[2024-04-06] MEDS: FUROSEMIDE 40 MG TABLET PO SCH (17:05)
[2024-04-06] MEDS: SACUBITRIL/VALSARTAN 24/26 MG TAB PO SCH (19:52)
[2024-04-06] MEDS: ATORVASTATIN 40 MG TAB PO SCH (19:52)
[2024-04-06] MEDS: APIXABAN 5 MG TABLET PO SCH (19:52)
[2024-04-06] MEDS ORDERED: DOXYCYCLINE 100 MG CAP PO SCH (21:00)
[2024-04-07] MEDS ORDERED: HYDROMORPHONE HCL 0.5 MG/0.5 ML INJ IV PRN ×2 (01:57→02:10)
[2024-04-07] MEDS: HYDROMORPHONE HCL 0.5 MG/0.5 ML INJ ONE (02:13)
[2024-04-07] MEDS: HYDROMORPHONE HCL 0.5 MG/0.5 ML INJ IV PRN (02:30)
[2024-04-07 06:27] LABS: Absolute Basophils 0.1 K/uL (0-0.5); Absolute Eosinophils 0.3 K/uL (0-0.5); Absolute Lymphocytes (CBC) 1.1 K/uL (0.7-4.9); Absolute Neutrophil 7.6 K/uL (1.8-8.0); Basophils % 0.8 % (0-1.3); Eosinophils % 3.1 % (0-4.4); Hematocrit 27.9 % (36.0-45.0); Hemoglobin 9.4 g/dL (12.0-15.0); Lymphocytes % 10.6 % (15.3-44.8); MCHC 33.7 g/dL (32.0-36.0); MPV 8.1 fL (7.6-11.3); Monocytes % 9.7 % (3.3-12.3); Neutrophils % 75.8 % (41.7-73.7); Platelets 316 thou/uL (152-406); RBC Red Blood Cell Count 3.03 M/uL (3.86-4.86); Red Cell Distribution Width 15.9 % (12.1-15.2)
[2024-04-07 06:58] LABS: Anion Gap 13.2 mEq/L (5.0-15.0); C-Reactive Protein 86.5 mg/L (<3.00); Magnesium 1.8 mg/dL (1.6-2.4); Phosphorus 7.5 mg/dL (2.5-4.9); Potassium 4.2 mEq/L (3.5-5.1)
[2024-04-07 08:06] VITALS: TEMP 97.9
[2024-04-07] MEDS: MAGNESIUM SULFATE 1 gm IVPB 1 GM/100 ML BAG IV ONE (08:14)
[2024-04-07] MEDS: LEVOTHYROXINE SOD 0.05 MG TABLET PO SCH (08:15)
[2024-04-07 10:15] VITALS: O2SAT 97
[2024-04-07 15:57] VITALS: BP 123/60
--- NOTE | 2024-04-07 16:06 | P.PN ---
Date of Service: 04/07/24 Discharge was delayed 04/06 due to ongoing pain management issues. See complete discharge summary from 04/06 Subjective Doing better today, pain better controlled on oral meds ROS 10 point ROS as noted above, otherwise negative Physical Exam General: Alert and oriented x3, uncomfortable HEENT: Atraumatic, Normocephalic Neck: Supple, JVD not distended Respiratory: Clear to auscultation bilaterally, Normal air movement Cardiovascular: Normal pulses, RRR, Normal S1 S2 Capillary refill: <2 Seconds Gastrointestinal: Normal bowel sounds, Soft and benign on palpation, Distended (obese) Musculoskeletal: No clubbing, Erythema (right thigh), Other (bilateral BKA, multiple finger amputations) Integumentary: No rashes, Skin breakdown (multiple on hands) Neurological: Normal speech, Normal tone Vitals Reviewed Problem list Right lower extremity hematoma with possible secondary infection/cellulitis Diabetes mellitusIDDM End-stage renal disease History HTN/HLD History of depression History of bilateral BKA History of hypothyroidism History of CHF History of CAD with coronary stents Plan Right lower extremity hematoma with possible secondary infection/cellulitis CT without contrast showing No fracture identified. Status post [id number]-[id number] amputation. Cortical loss at the tibial stump could reflect osteomyelitis in the appropriate clinical setting. Ultrasound showing No DVT in the right lower extremity Blood cultures-NGTD Will send RX for abx and pain meds Diabetes mellitusIDDM -Accu-Check with sliding scale insulin End-stage renal disease Hypomangesemia -Peritoneal dialysis -BUN/creatinine 41/7.55, GFR 6 -Dr. Suh consulted -replete PRN History HTN/HLD History of depression History of bilateral BKA History of hypothyroidism History of CHF History of CAD with coronary stents Home meds continues DVT PPx-eliquis continued Full code LOS 1-2 days
--- NOTE | 2024-04-07 18:36 | P.PN ---
Date of Service: 04/07/24 Vital Signs Temp Pulse Resp BP Pulse Ox 97.9 F 87 16 123/60 97 04/07/24 15:46 04/07/24 15:46 04/07/24 15:46 04/07/24 15:46 04/07/24 15:46 Microbiology Results 04/04/24 16:37 Blood - Blood Aerobic Blood Culture - Preliminary No growth in 24 hours. 04/04/24 16:37 Blood - Blood Anaerobic Blood Culture - Preliminary No growth in 24 hours. 04/04/24 16:21 Blood - Blood Aerobic Blood Culture - Preliminary No growth in 24 hours. 04/04/24 16:21 Blood - Blood Anaerobic Blood Culture - Preliminary No growth in 24 hours. Assessment/ Plan: Nephrology No dyspnea No chest pain Pain has improved today No acute events overnight Vitals, medications, blood work and imaging reviewed in the chart General: Oriented x3, Cooperative HEENT: Atraumatic Neck: Supple Respiratory: Normal air movement Cardiovascular: Regular rate/rhythm, Edema Gastrointestinal: Soft and benign, Non-distended Musculoskeletal: No clubbing, No contractures Integumentary: No rashes, Tenderness/swelling Neurological: Normal speech Laboratory Data (last 24 hrs) 04/04/24 04/04/24 04/04/24 16:21 16:21 16:21 WBC 9.10 Hgb 9.9 L Hct 30.7 L Plt Count 365 PT 15.2 H INR 1.40 APTT 36.9 Sodium 131 L Potassium 3.8 BUN 46 H Creatinine 7.84 H Glucose 101 Total Bilirubin 0.4 AST < 10 L ALT < 14 Alkaline Phosphatase 99 Imagings Data: EXAM DESCRIPTION: CT - Lower Ext Wo Con W/ Mpr - 04/04/2024 3:48 pm CLINICAL HISTORY: leg pain while at dialysis COMPARISON: No comparisons TECHNIQUE: CT scan of the right lower extremity was obtained without contrast. All CT scans are performed using dose optimization technique as appropriate and may include automated exposure control or mA/KV adjustment according to patient size. FINDINGS: Status post below the knee amputation. There is some cortical loss along the stump of the tibia. There is also soft tissue swelling and skin thickening. This could represent osteomyelitis. No fractures identified . Peripheral vascular calcifications. Degenerative changes are present at the right acetabulum and at the knee. IMPRESSION: No fracture identified. Status post kasre-laz-coir amputation. Cortical loss at the tibial stump could reflect osteomyelitis in the appropriate clinical setting. EXAM DESCRIPTION: US - Extremity Venous Uni Ltd - 04/04/2024 3:38 pm CLINICAL HISTORY: Pain COMPARISON: None. TECHNIQUE: Real-time sonographic evaluation of the right lower extremity deep venous system was performed. FINDINGS: Normal compressibility, flow augmentation, phasic flow and spontaneous flow is identified in the right lower extremity deep venous system. No intraluminal filling defects seen. Note that the patient had a [id number] amputation. The common femoral vein, femoral vein, popliteal veins were interrogated. IMPRESSION: No DVT in the right lower extremity. LEFT VENTRICULAR WALL MOTION: SEVERE GLOBAL HYPOKINESIS DOPPLER/COLOR FLOW: DIASTOLIC DYSFUNCTION COMMENTS: 1. SEVERE REDUCED LEFT VENTRICULAR SYSTOLIC FUNCTION, EJECTION FRACTION 10-15%, SEVERE GLOBAL HYPOKINESIS 2. DIASTOLIC DYSFUNCTION 3. ELEVATED RIGHT ATRIAL FILLING PRESSURE (GREATER THAN 20 mmHg), MODERATE PULMONARY HYPERTENSION (RIGHT VENTRICULAR SYSTOLIC PRESSURE 50-55 mmHg) Conclusions/Impression: ESRD on PD -PD as ordered Hyponatremia -Fluid restriction Hypokalemia -Replete prn Hypomagnesemia -Replete mag as ordered HTN with CKD/ CHF -Restart entresto as indicated Systolic Diastolic CHF, chronic Moderate Pulmonary HTN -PD with UF -Low sodium diet -Daily weight DM II with CKD, Polyneuropathy & Peripheral Angiopathy -RISS Anemia in CKD -Retacrit prn CKD MBD -Continue Calcitriol -Continue Renvela Right posterior lateral thigh hematoma Right posterior lateral thigh pain -Continue abx for possible infection; renal dosing -Follow up cx -Dilaudid prn Case reviewed with Dr. Rosa
[2024-04-08] MEDS ORDERED: levoFLOXacin 250 MG TAB PO SCH (12:00)
== END 2024-04-07 16:40 | disposition home or self-care (01) | DRG 604 ==
LOC: ER 15:04 → ERHOLD 18:12 → 4TH 19:36
PROVIDERS: ADMIT Internal Medicine; ATTEND Internal Medicine
PROC: 3E1M39Z Irrigation of Peritoneal Cavity using Dialysate, Percutaneous Approach (ICD-10-PCS; principal; 2024-04-06)
DX: S80.11XA Contusion of right lower leg, initial encounter (principal); N18.6 End stage renal disease; L03.115 Cellulitis of right lower limb; I50.42 Chronic combined systolic (congestive) and diastolic (congestive) heart failure; I13.2 Hypertensive heart and chronic kidney disease with heart failure and with stage 5 chronic kidney disease, or end stage renal disease; E87.1 Hypo-osmolality and hyponatremia; M86.8X6 Other osteomyelitis, lower leg; E11.22 Type 2 diabetes mellitus with diabetic chronic kidney disease; E11.69 Type 2 diabetes mellitus with other specified complication; E11.42 Type 2 diabetes mellitus with diabetic polyneuropathy; D63.1 Anemia in chronic kidney disease; F32.A Depression, unspecified; E78.00 Pure hypercholesterolemia, unspecified; E87.6 Hypokalemia; E83.42 Hypomagnesemia; E03.9 Hypothyroidism, unspecified; E83.39 Other disorders of phosphorus metabolism; I27.20 Pulmonary hypertension, unspecified; I25.10 Atherosclerotic heart disease of native coronary artery without angina pectoris; Z88.5 Allergy status to narcotic agent; Z95.5 Presence of coronary angioplasty implant and graft; Z88.8 Allergy status to other drugs, medicaments and biological substances; Z90.49 Acquired absence of other specified parts of digestive tract; Z79.01 Long term (current) use of anticoagulants; Z79.02 Long term (current) use of antithrombotics/antiplatelets; Z79.890 Hormone replacement therapy; Z79.899 Other long term (current) drug therapy; Z89.511 Acquired absence of right leg below knee; Z89.029 Acquired absence of unspecified finger(s); Z89.512 Acquired absence of left leg below knee
CPT/HCPCS: 36415; 73700; 76377; 80048; 80053; 80202; 82947; 83605; 83735; 84100; 84145; 85025; 85610; 85730; 86140; 87040; 93005; 93971; 94760; 96365; 96366; 96375; 99284; J1170; J2405; J2550; J3475; J7050

== ENCOUNTER 2024-04-11 02:03 | Inpatient (IN) | payer BC ==
--- OUTSIDE RECORDS SUMMARY | 2024-04-11 02:06 | XMS REPORT | Clinical Summary ---
Author Name Unknown Organization [facility] Address [address] [place] [address] Care Team Providers Care Mathematics Technician Name Role Phone Brooke Steward MD Primary Care Provider [phone] Allergies Active Allergy Reactions Criticality Noted Date [...] Overview: Added automatically from request for surgery [id number] Family history of malignant neoplasm of pancreas 07/05/2019 Overview: Added automatically from request for surgery [id number] Diarrhea 07/05/2019 Overview: Added automatically from request for surgery [id number] Family history of cancer of colon 07/05/2019 Overview: Added automatically from request for surgery [id number] Surgical History Surgery Date Site/Laterality Comments APPENDECTOMY 04/09/2019 - 05/09/2019 COLONOSCOPY 10/10/2014 - 10/09/2015 CHOLECYSTECTOMY 10/10/2003 - 10/09/2004 HI EDG US EXAM SURGICAL ALTER STOM DUODENUM/JEJUNUM [...] season) 2023 Influenza Vaccine 06/10/2024 Care Teams Mathematics Technician Relationship Specialty Start Date End Date Brooke Steward MD [facility] [place] [address] [email or web address] PCP - General Gastroenterology, Hepatology and Nutrition 06/29/19
[2024-04-11] MEDS ORDERED: PROMETHAZINE INJ 25 MG/ML AMP ONE (03:05)
[2024-04-11] MEDS ORDERED: ACETAMINOPHEN 500 MG TAB ONE (03:05)
[2024-04-11] MEDS ORDERED: VANCOMYCIN 1 GM/VIAL ONE (03:05)
[2024-04-11] MEDS ORDERED: FENTANYL CITR 100 MCG/2 ML ONE ×4 (03:06→15:59)
[2024-04-11] MEDS ORDERED: NA CHLORIDE 0.9% 100 ML ONE (03:06)
[2024-04-11] MEDS ORDERED: PIPERACIL/TAZO 3.375 GM VIAL IV ONE (03:06)
[2024-04-11] MEDS ORDERED: NA CHLORIDE 0.9% 500 ML ONE (03:06)
[2024-04-11 04:05] LABS: Absolute Eosinophils 0.2 K/uL (0-0.5); Absolute Lymphocytes (CBC) 1.1 K/uL (0.7-4.9); Absolute Monocytes 0.8 K/uL (0.1-1.3); Basophils % 0.4 % (0-1.3); Eosinophils % 1.9 % (0-4.4); Hematocrit 26.7 % (36.0-45.0); Hemoglobin 9.1 g/dL (12.0-15.0); Lymphocytes % 10.7 % (15.3-44.8); MCH 31.4 pg (27.0-35.0); MCHC 34.2 g/dL (32.0-36.0); MCV 91.8 fL (80-100); MPV 8.1 fL (7.6-11.3); Monocytes % 8.2 % (3.3-12.3); Neutrophils % 78.8 % (41.7-73.7); Nucleated Red Blood Cells % 0.1 % (0-0); Platelets 357 thou/uL (152-406); RBC Red Blood Cell Count 2.91 M/uL (3.86-4.86)
[2024-04-11 04:32] LABS: Albumin 1.7 g/dL (3.4-5.0); Albumin/Globulin Ratio 0.3 (1.1-1.8); Alkaline Phosphatase 93 U/L (45-117); Anion Gap 13.5 mEq/L (5.0-15.0); BUN Blood Urea Nitrogen 56 mg/dL (7-18); Bicarbonate 24 mEq/L (21-32); Bilirubin Total 0.4 mg/dL (0.2-1.0); Globulin 5.1 g/dL (2.3-3.5); Glomerular Filtration Rate 6 ml/min (=/>90); Glucose Level 107 mg/dL (74-106); Potassium 4.5 mEq/L (3.5-5.1); Protein, Total 6.8 g/dL (6.4-8.2); Sodium Level 126 mEq/L (136-145)
[2024-04-11 04:36] LABS: ALT/SGPT < 14 U/L (13-56); AST/SGOT < 10 U/L (15-37)
[2024-04-11 06:42] LABS: PT Prothrombin Time 14.9 SECONDS (9.4-12.5); Protime INR 1.34
--- NOTE | 2024-04-11 06:46 | EDPHYS ---
Physician Documentation [facility] Name: Keiry Umaña Age: 48 yrs Sex: Female : 1975 Arrival Date: 04/11/2024 Time: 02:03 Bed 18 Private MD: ED Physician Ruy Montes HPI: 04/11 06:18 This 48 yrs old Female presents to ER via EMS with complaints of pain right sp4 hip and redness . 06:45 This is 48-year-old female past medical history hypertension hyperlipidemia diabetes sp4 type 2 depression peritoneal dialysis end-stage renal disease bilateral BKA presents to the emergency room with moderate to severe right lower extremity redness pain swelling and discomfort. Patient was just managed here for right lower extremity hematoma with secondary cellulitis on 04/06/2024 patient was discharged home also managed for diabetes end-stage renal disease hypertension hyperlipidemia depression hypothyroidism ELIS CAD. Patient was discharged home with doxycycline levofloxacin calcitriol apixaban.. Historical: - Allergies: 02:20 KETAMINE; jb4 02:20 Morphine; jb4 - PMHx: 02:20 Congestive heart failure; Diabetes - IDDM; ESRD; High Cholesterol; Hypertension; jb4 Hypothyroidism; PCOS; - PSHx: 02:20 Appendectomy; Bilteral BKA; Cholecystectomy; coronary stents; jb4 - Immunization history:: Adult Immunizations. - Family history:: not pertinent. ROS: 06:45 Constitutional: Negative for fever, chills, and weight loss, positive moderate to sp4 severe right lower extremity pain swelling redness or discomfort. 06:45 All other systems are negative, Exam: 06:21 ECG was reviewed by the Attending Physician. EKG at 0 238 normal sinus rhythm prolonged sp4 QT. EKG rate 79 bpm. 06:45 Constitutional: This is a well developed, well nourished patient who is awake, patient sp4 is moderately debilitated female with peritoneal dialysis catheter right lower abdominal quadrant also bilateral lower extremity below-knee amputation, right lower extremity right lateral thigh area of redness swelling tenderness consistent with cellulitis. Head/Face: Normocephalic, atraumatic. Eyes: Pupils equal round and reactive to light, extra-ocular motions intact. Lids and lashes normal. Conjunctiva and sclera are not injected. Cornea within normal limits. Periorbital areas with no swelling, redness, or edema. ENT: Nares patent. No nasal discharge, no septal abnormalities noted. Tympanic membranes are normal and external auditory canals are clear. Oropharynx with no redness, swelling, or masses, exudates, or evidence of obstruction, uvula midline. Mucous membranes moist. Neck: Trachea midline, no thyromegaly or masses palpated, and no cervical lymphadenopathy. Supple, full range of motion without nuchal rigidity, or vertebral point tenderness. Chest/axilla: Normal chest wall appearance and motion. Nontender with no deformity. No lesions are appreciated. Cardiovascular: Regular rate and rhythm with a normal S1 and S2. No gallops, murmurs, or rubs. Normal PMI, no JVD. No pulse deficits. Respiratory: Lungs have equal breath sounds bilaterally, clear to auscultation and percussion. No rales, rhonchi or wheezes noted. No increased work of breathing, no retractions or nasal flaring. Abdomen/GI: Soft, with normal bowel sounds. No distension or tympany. No guarding or rebound. No evidence of tenderness throughout. Back: No spinal tenderness. No costovertebral tenderness. Skin: Warm, dry with normal turgor. Normal color with no rashes, no lesions, and no evidence of cellulitis. MS/ Extremity: Pulses equal, no cyanosis. Neurovascular intact. Full, normal range of motion. Bilateral chronic below knee amputations, right lateral thigh contains area of redness swelling tenderness also hematoma type lesion with extensive redness consistent with cellulitis. Neuro: Awake and alert, GCS 15, oriented to person, place, time, and situation. Cranial nerves II-XII grossly intact. Motor strength 5/5 in all extremities. Sensory grossly intact. Psych: Awake, alert, with orientation to person, place and time. Behavior, mood, and affect are within normal limits Vital Signs: 02:14 BP 101 / 60; Pulse 82; Resp 16; Temp 98.6(O); Pulse Ox 100% on R/A; Weight 94.8 kg; jb4 Height 6 ft. 0 in. ; 02:45 BP 99 / 52; Pulse 88; Resp 16; Pulse Ox 100% on R/A; jb4 04:00 BP 93 / 54; Pulse 84; Resp 16; Pulse Ox 100% on R/A; jb4 05:00 BP 99 / 64; Pulse 80; Resp 16; Pulse Ox 100% on R/A; jb4 06:28 BP 97 / 46; Pulse 79; Resp 16; Pulse Ox 100% on R/A; jb4 08:45 BP 115 / 73; Pulse 70; Resp 16; Pulse Ox 98% on R/A; mb9 02:14 Body Mass Index 28.35 (94.80 kg, 182.88 cm) jb4 Osmany Coma Score: 06:45 Eye Response: spontaneous(4). Motor Response: obeys commands(6). Verbal Response: sp4 oriented(5). Total: 15. MDM: 02:17 Patient medically screened. sp4 06:19 ED course: EXAMINATION: CT PELVIS WITHOUT IV CONTRAST, CT LOWER EXTREMITYWITHOUT IV sp4 CONTRAST RIGHT INDICATION: Female, 48 years old, right thigh infection , extend ct to right thigh COMPARISON(S): 04/04/2024 TECHNIQUE: CT acquisition of the pelvis and right thigh without contrast. Coronal and sagittal reformatted images provided. This exam was performed according to departmental dose-optimization program which includes automated exposure control, adjustment of the mA and/or kV according to patient size, and/or use of iterative reconstruction technique. FINDINGS: Soft tissue characterization limited by lack of intravenous contrast. Exam is also limited by reformations only provided in bone algorithm, mild photon starvation, and portions of the posterolateral thigh outside of the field of view. Slight interval worsening in degree and extent of extensive subcutaneous soft tissue stranding throughout the right greater than left pelvis, in the right side. Asymmetric right thigh skin thickening is present. No evidence of fluid collection, deep fascial edema, or soft tissue gas. Intramuscular fat planes are preserved. Severe diffuse atherosclerosis. Small moderate volume of pelvic ascites, with partially imaged dialysis type catheter coiled in the left pelvis. No acute osseous finding, evidence of erosion or pathologic sclerosis. Mild degenerative changes of the lumbosacral spine, sacroiliac joints, hips and right knee. Small right knee joint effusion. IMPRESSION: 1. Slight interval worsening of diffuse edema and/or inflammatory stranding throughout the right pelvis and right thigh from prior CT, without appreciable fluid collection or soft tissue gas. 2. Pelvic ascites may be related to peritoneal dialysis. 3. Additional chronic and incidental findings above. . ED course: EXAMINATION: CT PELVIS WITHOUT IV CONTRAST, CT LOWER EXTREMITYWITHOUT IV CONTRAST RIGHT INDICATION: Female, 48 years old, right thigh infection , extend ct to right thigh COMPARISON(S): 04/04/2024 TECHNIQUE: CT acquisition of the pelvis and right thigh without contrast. Coronal and sagittal reformatted images provided. This exam was performed according to departmental dose-optimization program which includes automated exposure control, adjustment of the mA and/or kV according to patient size, and/or use of iterative reconstruction technique. FINDINGS: Soft tissue characterization limited by lack of intravenous contrast. Exam is also limited by reformations only provided in bone algorithm, mild photon starvation, and portions of the posterolateral thigh outside of the field of view. Slight interval worsening in degree and extent of extensive subcutaneous soft tissue stranding throughout the right greater than left pelvis, in the right side. Asymmetric right thigh skin thickening is present. No evidence of fluid collection, deep fascial edema, or soft tissue gas. Intramuscular fat planes are preserved. Severe diffuse atherosclerosis. Small moderate volume of pelvic ascites, with partially imaged dialysis type catheter coiled in the left pelvis. No acute osseous finding, evidence of erosion or pathologic sclerosis. Mild degenerative changes of the lumbosacral spine, sacroiliac joints, hips and right knee. Small right knee joint effusion. IMPRESSION: 1. Slight interval worsening of diffuse edema and/or inflammatory stranding throughout the right pelvis and right thigh from prior CT, without appreciable fluid collection or soft tissue gas. 2. Pelvic ascites may be related to peritoneal dialysis. 3. Additional chronic and incidental findings above. . 06:45 Differential Diagnosis altered mental status, sepsis, flu, cellulitis . Data reviewed: [facility] vital signs, nurses notes, EMS record, old medical records, lab test result(s), EKG, radiologic studies, CT scan. Consideration of Admission/Observation Patient was admitted/placed on observation. Escalation of care including admission/observation considered. Management of patient was discussed with the following: Hospitalist: Ari PEARSON . 04/11 02:16 Order name: Blood Culture Adult (2) [facility] 04/11 02:16 Order name: CBC with Diff; Complete Time: 06:18 [facility] 04/11 02:16 Order name: CMP; Complete Time: 06:18 [facility] 04/11 02:16 Order name: Lactate w/ 2H reflex if indic.; Complete Time: 06:18 [facility] 04/11 02:16 Order name: Protime (+inr) [facility] 04/11 02:16 Order name: Ptt, Activated sp4 04/11 03:54 Order name: Glucose, Ancillary Testing; Complete Time: 06:18 EDMS 04/11 07:50 Order name: Basic Metabolic Panel EDMS 04/11 07:50 Order name: Basic Metabolic Panel EDMS 04/11 07:50 Order name: Basic Metabolic Panel EDMS 04/11 07:50 Order name: Basic Metabolic Panel EDMS 04/11 07:50 Order name: Basic Metabolic Panel EDMS 04/11 07:50 Order name: Basic Metabolic Panel EDMS 04/11 07:50 Order name: CBC with Automated Diff EDMS 04/11 07:50 Order name: CBC with Automated Diff EDMS 04/11 07:50 Order name: CBC with Automated Diff EDMS 04/11 07:50 Order name: CBC with Automated Diff EDMS 04/11 07:50 Order name: CBC with Automated Diff EDMS 04/11 07:50 Order name: CBC with Automated Diff EDMS 04/11 07:50 Order name: Magnesium EDMS 04/11 07:50 Order name: Magnesium EDMS 04/11 07:50 Order name: Magnesium EDMS 04/11 07:50 Order name: Magnesium EDMS 04/11 07:50 Order name: Magnesium EDMS 04/11 07:50 Order name: Magnesium EDMS 04/11 07:50 Order name: Phosphorus EDMS 04/11 07:50 Order name: Phosphorus EDMS 04/11 07:50 Order name: Phosphorus EDMS 04/11 07:50 Order name: Phosphorus EDMS 04/11 07:50 Order name: Phosphorus EDMS 04/11 07:50 Order name: Phosphorus EDMS 04/11 09:55 Order name: Phosphorus EDMS / 10:53 Order name: PTH Intact EDMS 04/11 12:28 Order name: Glucose, Ancillary Testing EDMS 04/11 02:17 Order name: CT Pelvis wo Cont sp4 04/11 03:13 Order name: Femur Right Wo Con EDMS 04/11 02:16 Order name: EKG; Complete Time: 02:16 sp4 04/11 07:50 Order name: CONS Physician Consult EDMS 04/11 07:50 Order name: CONS Physician Consult EDMS 04/11 07:50 Order name: CONS Physician Consult EDMS 04/11 02:16 Order name: Accucheck; Complete Time: 02:58 sp4 04/11 02:16 Order name: Cardiac monitoring; Complete Time: 02:58 sp4 04/11 02:16 Order name: EKG - Nurse/Tech; Complete Time: :58 sp4 04/11 02:16 Order name: IV Saline Lock - Large Bore; Complete Time: 03:40 sp4 04/11 02:16 Order name: Labs collected and sent; Complete Time: 02:58 sp4 04/11 02:16 Order name: O2 Per Protocol; Complete Time: 02:24 sp4 04/11 02:16 Order name: O2 Sat Monitoring; Complete Time: 02:24 sp4 04/11 02:16 Order name: Vital Signs; Complete Time: :58 sp4 EC:21 Rate is 79 beats/min. Rhythm is regular, Normal Sinus Rhythm. QRS Broad Top is Normal. NM sp4 interval is normal. QRS interval is normal. QT interval is prolonged. No Q waves. T waves are Normal. No ST changes noted. Clinical impression: No evidence of ischemia. Interpreted by me. Reviewed by me. Administered Medications: 03:26 Drug: Promethazine IM 25 mg IM once Route: IM; Site: left gluteus; jb4 03:35 Drug: Acetaminophen PO 1000 mg PO once Route: PO; jb4 03:35 Drug: fentaNYL (PF) IVP 50 mcg IVP once Route: IVP; Site: left hand; jb4 04:06 Drug: Piperacillin-Tazobactam IVPB 3.375 grams IVPB once over 60 mins; (mix in NS 100 jb4 mL) Route: IVPB; Infused Over: 60 mins; Site: left hand; 05:09 Drug: fentaNYL (PF) IVP 25 mcg IVP once Route: IVP; Site: left hand; jb4 05:10 Drug: vancoMYCIN IVPB 2 grams IVPB at calculated rate once Route: IVPB; Rate: jb4 calculated rate; Site: left hand; Disposition Summary: 04/11/24 06:45 Hospitalization Ordered Notes: Hospitalization Status: Inpatient Admission sp4 Provider: Flako Chapman Condition: Stable sp4 Problem: new sp4 Symptoms: have improved sp4 Bed/Room Type: Standard sp4 Location: Telemetry/MedSurg (Inpatient)(04/11/24 13:07) kathie Room Assignment: 214(04/11/24 13:07) kathie Diagnosis - Cellulitis of right lower limb sp4 - Generalized weakness, moderate to severe pain associated with right lower extremity sp4 cellulitis. Right thigh cellulitis Forms: - Medication Reconciliation Form sp4 - SBAR form sp4 - Leadership Thank You Letter sp4 Signatures: Dispatcher [employer] EDMS Wero Day, RN RN jb4 Hua Monge RN RN ja1 Mary Stephen RN RN kb3 Ruy Montes MD MD sp4 Corrections: (The following items were deleted from the chart) 02:16 02:16 BLOOD CULTURE*+BA.LAB.BRZ ordered. EDMS EDMS 02:16 02:16 CBC+H.LAB.BRZ ordered. EDMS EDMS 02:17 02:16 COMPREHENSIVE METABOLIC PANEL+C.LAB.BRZ ordered. EDMS EDMS 02:17 02:16 LACTATE+C.LAB.BRZ ordered. EDMS EDMS 02:17 02:16 PROTIME (+INR)+COAG.LAB.BRZ ordered. EDMS EDMS 02:17 02:16 PTT, ACTIVATED+COAG.LAB.BRZ ordered. EDMS EDMS 08:47 06:45 Telemetry/MedSurg (Inpatient) sp4 kb3 08:47 06:45 sp4 kb3 13:07 08:[address] [facility] ER HOLD kb3 ja1 13:07 08:47 ERHOLD- kb3 ja1
--- NOTE | 2024-04-11 06:46 | ER ---
Nurse's Notes [facility] Name: Keiry Umaña Age: 48 yrs Sex: Female : 1975 Arrival Date: 04/11/2024 Time: 02:03 Bed 18 Private MD: Diagnosis: Cellulitis of right lower limb;Generalized weakness, moderate to severe pain associated with right lower extremity cellulitis. Right thigh cellulitis Presentation: 04/11 02:14 Chief complaint: EMS states: Pt was recently released from here after receiving IV jb4 antibiotics for an infection in her right leg. Tonight reports the pain is a 7/10, the redness has decreased from its original size, pt now reports worse swelling to the leg and a firmness on the inner thigh. Coronavirus screen: At this time, the client does not indicate any symptoms associated with coronavirus-19. Ebola Screen: No symptoms or risks identified at this time. Initial Sepsis Screen: Does the patient meet any 2 criteria? No. Patient's initial sepsis screen is negative. Does the patient have a suspected source of infection? No. Patient's initial sepsis screen is negative. Risk Assessment: Do you want to hurt yourself or someone else? Patient reports no desire to harm self or others. Onset of symptoms was April 11, 2024. Transition of care: patient was not received from another setting of care. 02:14 Method Of Arrival: EMS: [facility] jb4 02:14 Acuity: CHERYL 3 jb4 Historical: - Allergies: 02:20 KETAMINE; jb4 02:20 Morphine; jb4 - PMHx: 02:20 Congestive heart failure; Diabetes - IDDM; ESRD; High Cholesterol; Hypertension; jb4 Hypothyroidism; PCOS; - PSHx: 02:20 Appendectomy; Bilteral BKA; Cholecystectomy; coronary stents; jb4 - Immunization history:: Adult Immunizations. - Family history:: not pertinent. Screenin:21 [facility] [place] ED Fall Risk Assessment (Adult) History of falling in the last 3 months, jb4 including since admission No falls in past 3 months (0 pts) Confusion or Disorientation No (0 pts) Intoxicated or Sedated No (0 pts) Impaired Gait Yes (1 pt) Mobility Assist Device Used Yes (1 pt) Altered Elimination No (0 pt) Score/Fall Risk Level 0 - 2 = Low Risk Oriented to surroundings, Maintained a safe environment. Abuse screen: Denies threats or abuse. Nutritional screening: No deficits noted. Tuberculosis screening: No symptoms or risk factors identified. Assessment: 02:21 General: Appears in no apparent distress. comfortable, Behavior is calm, cooperative, jb4 appropriate for age. Pain: Complains of pain in lateral aspect of right thigh and medial aspect of right thigh Pain does not radiate. Pain currently is 7 out of 10 on a pain scale. Neuro: Level of Consciousness is awake, alert, obeys commands, Oriented to person, place, time, situation. Cardiovascular: Patient's skin is warm and dry. Respiratory: Airway is patent Respiratory effort is even, unlabored, Respiratory pattern is regular, symmetrical. GI: No signs and/or symptoms were reported involving the gastrointestinal system. : No signs and/or symptoms were reported regarding the genitourinary system. EENT: No signs and/or symptoms were reported regarding the EENT system. Derm: Skin is intact, Skin is pink, warm \T\ dry. Musculoskeletal: Circulation, motion, and sensation intact. Range of motion: intact in all extremities. 03:30 Reassessment: Patient appears in no apparent distress at this time. Patient and/or jb4 family updated on plan of care and expected duration. Pain level reassessed. Patient is alert, oriented x 3, equal unlabored respirations, skin warm/dry/pink. 04:38 Reassessment: Patient appears in no apparent distress at this time. Patient and/or jb4 family updated on plan of care and expected duration. Pain level reassessed. Patient is alert, oriented x 3, equal unlabored respirations, skin warm/dry/pink. Pt reports normal systolic B/p is 90-100. 06:00 Reassessment: Patient appears in no apparent distress at this time. Patient and/or jb4 family updated on plan of care and expected duration. Pain level reassessed. Patient is alert, oriented x 3, equal unlabored respirations, skin warm/dry/pink. Vital Signs: 02:14 BP 101 / 60; Pulse 82; Resp 16; Temp 98.6(O); Pulse Ox 100% on R/A; Weight 94.8 kg; jb4 Height 6 ft. 0 in. ; 02:45 BP 99 / 52; Pulse 88; Resp 16; Pulse Ox 100% on R/A; jb4 04:00 BP 93 / 54; Pulse 84; Resp 16; Pulse Ox 100% on R/A; jb4 05:00 BP 99 / 64; Pulse 80; Resp 16; Pulse Ox 100% on R/A; jb4 06:28 BP 97 / 46; Pulse 79; Resp 16; Pulse Ox 100% on R/A; jb4 08:45 BP 115 / 73; Pulse 70; Resp 16; Pulse Ox 98% on R/A; mb9 02:14 Body Mass Index 28.35 (94.80 kg, 182.88 cm) jb4 Latimer Coma Score: 06:45 Eye Response: spontaneous(4). Motor Response: obeys commands(6). Verbal Response: sp4 oriented(5). Total: 15. ED Course: 02:14 Patient arrived in ED. jb4 02:15 Ruy Montes MD is Attending Physician. sp4 02:20 Triage completed. jb4 02:20 Arm band placed on right wrist. jb4 02:21 Patient has correct armband on for positive identification. Bed in low position. Call jb4 light in reach. Side rails up X 1. Provided Education on: plan of care. 03:15 Missed attempt(s): 20 gauge Bleeding controlled, band aid applied, catheter tip intact. oe 03:25 First set of blood cultures drawn by me. oe 03:27 Inserted saline lock: 24 gauge in left hand, using aseptic technique. Blood collected. oe 03:46 CBC with Diff Sent. oe 03:46 CMP Sent. oe 03:46 Lactate w/ 2H reflex if indic. Sent. oe 03:46 Protime (+inr) Sent. oe 03:46 Ptt, Activated Sent. oe 03:47 CT Pelvis wo Cont In Process Unspecified. EDMS 03:48 Femur Right Wo Con In Process Unspecified. EDMS 06:44 Flako Chapman MD is Hospitalizing Provider. sp4 06:49 Wero Day, CHERI is Primary Nurse. jb4 09:24 No provider procedures requiring assistance completed. Patient admitted, IV remains in mb9 place. Administered Medications: 03:26 Drug: Promethazine IM 25 mg IM once Route: IM; Site: left gluteus; jb4 03:35 Drug: Acetaminophen PO 1000 mg PO once Route: PO; jb4 03:35 Drug: fentaNYL (PF) IVP 50 mcg IVP once Route: IVP; Site: left hand; jb4 04:06 Drug: Piperacillin-Tazobactam IVPB 3.375 grams IVPB once over 60 mins; (mix in NS 100 jb4 mL) Route: IVPB; Infused Over: 60 mins; Site: left hand; 05:09 Drug: fentaNYL (PF) IVP 25 mcg IVP once Route: IVP; Site: left hand; jb4 05:10 Drug: vancoMYCIN IVPB 2 grams IVPB at calculated rate once Route: IVPB; Rate: jb4 calculated rate; Site: left hand; Medication: 02:21 VIS not applicable for this client. jb4 Outcome: 06:45 Decision to Hospitalize by Provider. sp4 14:33 Admitted to Med/surg room 214, mb9 14:33 Condition: stable 14:33 Instructed on the need for admit, 14:34 Patient left the ED. mb9 Signatures: Dispatcher [employer] EDWero Santamaria RN RN jb4 Westley Jj Mary Beth RN RN mb9 Ruy Montes MD MD sp4 Corrections: (The following items were deleted from the chart) 03:46 03:27 Missed attempt(s): 20 gauge Bleeding controlled, band aid applied, catheter tip oe intact. oe
--- NOTE | 2024-04-11 07:05 | P.HP ---
Certification for Inpatient Patient admitted to: Observation With expected LOS: <2 Midnights Patient will require the following post-hospital care: None Practitioner: I am a practitioner with admitting privileges, knowledge of patient current condition, hospital course, and medical plan of care. Services: Services provided to patient in accordance with Admission requirements found in Title 42 Section 412.3 of the Code of Federal Regulations Patient History Date of Service: 04/11/24 Reason for admission: Cellulitits to right thight History of Present Illness: Keiry Umaña is a 48 year old female with Pmhx Hypertension, hyperlipidemia, diabetes mellitusIDDM, depression, end-stage renal disease (peritoneal dialysis), bilateral BKA who presents to the ED with chief complaint of right thigh trauma/severe pain. She was recently discharged after IV antibiotics to continue PO antibiotic therapy at home with doxycycline and levaquin. She was discharged on Oral dilaudid x 30 tablets. She continues to have severe pain and increased painful area to her right posterior thigh. She reports taking Eliquis, last dose yesterday morning 04/10/2024. Keiry will be admitted to hospitalist service for increased tightness and bruising to right outer thigh. Dr. Lopez, Dr. Alvarado Allergies ketamine Allergy (Severe, Verified 04/04/24 23:38) Anaphylaxis morphine Allergy (Intermediate, Verified 04/04/24 23:38) Anaphylaxis ondansetron [From Zofran] Adverse Reaction (Verified 04/05/24 01:09) Nausea/Vomiting Home Medications: Apixaban [Eliquis] 5 mg PO BID 04/05/24 Atorvastatin Calcium [Lipitor] 40 mg PO BEDTIME 04/05/24 Furosemide [Lasix] 80 mg PO BID 04/05/24 Levothyroxine Sodium [Synthroid] 50 mcg PO DAILY 04/05/24 Sacubitril/Valsartan [Entresto 24 mg-26 mg Tablet] 1 tab PO BID 04/05/24 Calcitrol [Rocaltrol*] 0.5 mcg PO DAILY #60 cap 04/06/24 Docusate [Colace Cap*] 100 mg PO BID #60 cap 04/06/24 Doxycycline Hyclate 100 mg PO BID 7 Days #14 cap 04/06/24 Sevelamer Carbonate [Renvela*] 1,600 mg PO TIDWM #0 04/06/24 Vitamin D [Drisdol*] 50,000 unit PO Q48H cap 04/06/24 levoFLOXacin [Levaquin*] 250 mg PO Q48H #3 tab 04/06/24 Hydromorphone HCl 4 mg PO Q6H #30 tab 04/07/24 - Past Medical/Surgical History Diabetic: Yes -: HTN -: HLD -: IDDM -: Systolic Diastolic CHF/ Pulmonary HTN -: ESRD on PD (Dr. 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 Mother -: Heart disease, Diabetes, Stroke Notes: - Social History Alcohol use: No CD- Drugs: No Caffeine use: Yes Review of Systems Gastrointestinal: Nausea Musculoskeletal: Other (right thigh pain) Physical Examination - Physical Exam General: Alert, In no apparent distress, Oriented x3 HEENT: Atraumatic, Normocephalic, PERRLA Neck: Supple, 2+ carotid pulse no bruit Respiratory: Clear to auscultation bilaterally, Normal air movement Cardiovascular: Normal pulses, Regular rate/rhythm, Normal S1 S2 Capillary refill: <2 Seconds Gastrointestinal: Soft and benign, No tenderness Musculoskeletal: Erythema (right outer aspect of thigh), Tenderness (right outer ascept of thigh) Integumentary: Erythema (right outer ascept of thigh), Warmth (right outer ascept of thigh) Neurological: Normal speech, Normal tone - Studies Laboratory Data (last 24 hrs) 04/11/24 04/11/24 04/11/24 03:25 03:25 03:25 WBC 10.20 Hgb 9.1 L Hct 26.7 L Plt Count 357 PT 14.9 H INR 1.34 APTT 33.0 Sodium 126 L Potassium 4.5 BUN 56 H Creatinine 8.03 H Glucose 107 H Total Bilirubin 0.4 AST < 10 L ALT < 14 Alkaline Phosphatase 93 Assessment and Plan - Plan Right lower extremity trauma/infection -CT pelvis w/o contrast, CT lower extremity: slight interval worsening of diffuse edema and/or inflammatory stranding throughout the right pelvis and right thigh from prior CT without appreciable fluid collection or soft tissue gas. -Supportive care -IV antibiotic given in ED -Pain control -Follow blood cultures -Consult Dr. Alvarado Merrem 500 Q12H and Vanc IV for two weeks 04/25 -Dr. Lopez- I and D 04/11, daily dresing changes with vashe damp to dry Prolonged QT/QTc -QT/QTc 442/506 -Hold medications that prolong QT Diabetes mellitusIDDM -Accu-Check with sliding scale insulin End-stage renal disease -Peritoneal dialysis with home equipment -BUN/creatinine -Dr. Suh consulted History HTN/HLD History of depression History of bilateral BKA History of hypothyroidism History of CHF History of CAD with coronary stents -Continue home medications -Continuous telemetry DVT PPx Full code LOS 2 days Discharge Plan: Home Plan to discharge in: 48 Hours - Advance Directives Does patient have a Living Will: Yes Does patient have a Durable POA for Healthcare: No
--- NOTE | 2024-04-11 08:25 | P.CNS ---
Date of Consult: 04/11/24 Reason for Consult: ESRD Requesting Physician: Flako Chapman Chief Complaint: Cellulitits to right thight History of Present Illness: Keiry Umaña is a 48 year old female with Pmhx Hypertension, hyperlipidemia, diabetes mellitusIDDM, depression, end-stage renal disease (peritoneal dialysis), bilateral BKA who presents to the ED with chief complaint of right thigh trauma/severe pain. She was recently discharged after IV antibiotics to continue PO antibiotic therapy at home with doxycycline and levaquin. She was discharged on Oral dilaudid x 30 tablets. She reports taking Eliquis, last dose yesterday morning 04/10/2024 06:18 This 48 yrs old Female presents to ER via EMS with complaints of pain right sp4 hip and redness . Allergies ketamine Allergy (Severe, Verified 04/04/24 23:38) Anaphylaxis morphine Allergy (Intermediate, Verified 04/04/24 23:38) Anaphylaxis ondansetron [From Zofran] Adverse Reaction (Verified 04/05/24 01:09) Nausea/Vomiting Home medications list reviewed: Yes Home Medications: Apixaban [Eliquis] 5 mg PO BID 04/05/24 Atorvastatin Calcium [Lipitor] 40 mg PO BEDTIME 04/05/24 Furosemide [Lasix] 80 mg PO BID 04/05/24 Levothyroxine Sodium [Synthroid] 50 mcg PO DAILY 04/05/24 Sacubitril/Valsartan [Entresto 24 mg-26 mg Tablet] 1 tab PO BID 04/05/24 Calcitrol [Rocaltrol*] 0.5 mcg PO DAILY #60 cap 04/06/24 Docusate [Colace Cap*] 100 mg PO BID #60 cap 04/06/24 Doxycycline Hyclate 100 mg PO BID 7 Days #14 cap 04/06/24 Sevelamer Carbonate [Renvela*] 1,600 mg PO TIDWM #0 04/06/24 Vitamin D [Drisdol*] 50,000 unit PO Q48H cap 04/06/24 levoFLOXacin [Levaquin*] 250 mg PO Q48H #3 tab 04/06/24 Hydromorphone HCl 4 mg PO Q6H #30 tab 04/07/24 - Past Medical/Surgical History Diabetic: Yes -: HTN -: HLD -: IDDM -: Systolic Diastolic CHF/ Pulmonary HTN -: ESRD on PD (Dr. 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 Mother Medical History: Heart disease, Diabetes, Stroke Notes: - Social History Smoking Status: Never smoker Alcohol use: No CD- Drugs: No Caffeine use: Yes Review of Systems 10-point ROS is otherwise unremarkable General: Weakness, Malaise Musculoskeletal: Leg Pain Physical Examination General: Oriented x3, Cooperative HEENT: Atraumatic Neck: Supple Respiratory: Clear to auscultation bilaterally Cardiovascular: Regular rate/rhythm, Edema Gastrointestinal: Soft and benign, Non-distended Musculoskeletal: No clubbing, No contractures Integumentary: No rashes, No cyanosis, Tenderness/swelling Neurological: Normal speech Laboratory Data (last 24 hrs) 04/11/24 04/11/24 04/11/24 03:25 03:25 03:25 WBC 10.20 Hgb 9.1 L Hct 26.7 L Plt Count 357 PT 14.9 H INR 1.34 APTT 33.0 Sodium 126 L Potassium 4.5 BUN 56 H Creatinine 8.03 H Glucose 107 H Total Bilirubin 0.4 AST < 10 L ALT < 14 Alkaline Phosphatase 93 Imagings Data: EXAM DESCRIPTION: CT - Femur Right Wo Con - 04/11/2024 6:45 am CLINICAL HISTORY: Female, 48 years old, right thigh infection , extend ct to right thigh COMPARISON: 04/04/2024 TECHNIQUE: CT acquisition of the pelvis and right thigh without contrast. C oronal and sagittal reformatted images provided. This exam was performed according to departmental dose-optimization program which includes automated exposure control, adjustment of the mA and/or kV according to patient size, and/or use of iterative reconstruction technique. FINDINGS: Soft tissue characterization limited by lack of intravenous contrast. Exam is also limited by reformations only provided in bone algorithm, mild photon starvation, and portions of the posterolateral thigh outside of the field of view. Slight interval worsening in degree and extent of extensive subcutaneous soft tissue stranding throughout the right greater than left pelvis, in the right side. Asymmetric right thigh skin thickening is present. No evidence of fluid collection, deep fascial edema, or soft tissue gas. Intramuscular fat planes are preserved. Severe diffuse atherosclerosis. Small moderate volume of pelvic ascites, with partially imaged dialysis type catheter coiled in the left pelvis. No acute osseous finding, evidence of erosion or pathologic sclerosis. Mild degenerative changes of the lumbosacral spine, sacroiliac joints, hips and right knee. Small right knee joint effusion. IMPRESSION: 1. Slight interval worsening of diffuse edema and/or inflammatory stranding throughout the right pelvis and right thigh from prior CT, without appreciable fluid collection or soft tissue gas. 2. Pelvic ascites may be related to peritoneal dialysis. 3. Additional chronic and incidental findings above. Conclusions/Impression: ESRD on PD -Continue home PD prescription Orthostatic Hypotension -IV Albumin as ordered Systolic CHF, chronic -PD with UF -Lasix X1 Hypoalbuminemia -IV Albumin as ordered -Start Nepro Anemia in CKD -Retacrit X1 CKD MBD -Renvela TID Right thigh hematoma with possible cellulitis vs traumatic calciphylaxis -Renal diet -Renvela TID -Start Sodium thiosulfate -Surgery and ID evaluating the patient Case reviewed with Dr. Chapman Thank you kindly for the consultation
[2024-04-11 08:34] VITALS: BMI 28.3
[2024-04-11] MEDS: ALBUMIN HUMAN 25% 100 ML IV SCH ×2 (09:30→15:29)
[2024-04-11] MEDS ORDERED: ALBUMIN HUMAN 25% 100 ML IV ONE (09:31)
[2024-04-11] MEDS: ALBUMIN HUMAN 25% 200 ML IV ONE (09:41)
[2024-04-11] MEDS: FUROSEMIDE 40 MG/4 ML VIAL IV ONE (10:15)
[2024-04-11] MEDS: HYDROMORPHONE ORAL 2 MG TAB PO PRN (10:40)
[2024-04-11] MEDS ORDERED: FUROSEMIDE 100 MG/10 ML VIAL IV ONE (10:47)
[2024-04-11] MEDS ORDERED: FUROSEMIDE 20 MG/ 2ML VIAL ONE (10:47)
[2024-04-11] MEDS ORDERED: FUROSEMIDE 40 MG/4 ML VIAL ONE (10:48)
[2024-04-11] MEDS ORDERED: HYDROMORPHONE ORAL 2 MG TAB ONE (10:48)
[2024-04-11] MEDS: INSULIN REGULAR (HUMAN) 100 UNIT/ML SQ SCH (11:30)
--- NOTE | 2024-04-11 13:25 | P.CNS ---
Date of Consult: 04/11/24 Chief Complaint: Cellulitits to right thight History of Present Illness: Patient with PMH of HTN, HLD, DM, ESRD, atrial fibrillation, heart failure, CAD s/p PCI most recent 1 year ago presented with right leg cellulitis, cardiology was consulted for clearance, dneies having chest pain, no SOB, no palpitations, no syncope. Allergies ketamine Allergy (Severe, Verified 04/04/24 23:38) Anaphylaxis morphine Allergy (Intermediate, Verified 04/04/24 23:38) Anaphylaxis ondansetron [From Zofran] Adverse Reaction (Verified 04/05/24 01:09) Nausea/Vomiting Home Medications: Apixaban [Eliquis] 5 mg PO BID 04/05/24 Atorvastatin Calcium [Lipitor] 40 mg PO BEDTIME 04/05/24 Furosemide [Lasix] 80 mg PO BID 04/05/24 Levothyroxine Sodium [Synthroid] 50 mcg PO DAILY 04/05/24 Sacubitril/Valsartan [Entresto 24 mg-26 mg Tablet] 1 tab PO BID 04/05/24 Calcitrol [Rocaltrol*] 0.5 mcg PO DAILY #60 cap 04/06/24 Docusate [Colace Cap*] 100 mg PO BID #60 cap 04/06/24 Doxycycline Hyclate 100 mg PO BID 7 Days #14 cap 04/06/24 Sevelamer Carbonate [Renvela*] 1,600 mg PO TIDWM #0 04/06/24 Vitamin D [Drisdol*] 50,000 unit PO Q48H cap 04/06/24 levoFLOXacin [Levaquin*] 250 mg PO Q48H #3 tab 04/06/24 Hydromorphone HCl 4 mg PO Q6H #30 tab 04/07/24 - Past Medical/Surgical History Diabetic: Yes -: HTN -: HLD -: IDDM -: Systolic Diastolic CHF/ Pulmonary HTN -: ESRD on PD (Dr. 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 Mother Medical History: Heart disease, Diabetes, Stroke Notes: - Social History Smoking Status: Never smoker Alcohol use: No CD- Drugs: No Caffeine use: Yes Review of Systems 10-point ROS is otherwise unremarkable Physical Examination Temp Pulse Resp BP Pulse Ox 97.8 F 73 18 113/62 97 04/11/24 12:00 04/11/24 12:00 04/11/24 12:00 04/11/24 12:00 04/11/24 12:00 General: Alert, In no apparent distress HEENT: Atraumatic, PERRLA, Mucous membr. moist/pink, EOMI, Sclerae nonicteric Neck: Supple, 2+ carotid pulse no bruit, No LAD, Without JVD or thyroid abnormality Respiratory: Clear to auscultation bilaterally, Normal air movement Cardiovascular: Regular rate/rhythm, Normal S1 S2 Gastrointestinal: Normal bowel sounds, No tenderness Musculoskeletal: No tenderness Integumentary: No rashes Neurological: Normal gait, Normal speech, Normal tone, Normal affect Lymphatics: No axilla or inguinal lymphadenopathy Laboratory Data (last 24 hrs) 04/11/24 04/11/24 04/11/24 03:25 03:25 03:25 WBC Hgb Hct Plt Count PT 14.9 H INR 1.34 APTT 33.0 Sodium 126 L Potassium 4.5 BUN 56 H Creatinine 8.03 H Glucose 107 H Phosphorus 8.0 H Total Bilirubin 0.4 AST < 10 L ALT < 14 Alkaline Phosphatase 93 04/11/24 03:25 WBC 10.20 Hgb 9.1 L Hct 26.7 L Plt Count 357 PT INR APTT Sodium Potassium BUN Creatinine Glucose Phosphorus Total Bilirubin AST ALT Alkaline Phosphatase - Problems (1) Encounter for pre-operative cardiovascular clearance Current Visit: Yes Status: Acute Plan: Patient is not having chest pain, no arrhythmia, no SOB. Patient is cleared as intermediate cardiac risk for surgery. (2) Chronic systolic heart failure Current Visit: Yes Status: Acute Plan: Patient looks euvolemic on exam. Continue Entresto. (3) HTN (hypertension) Current Visit: No Status: Acute Plan: continue patient home medications. Qualifiers: Hypertension type: essential hypertension (4) Atrial fibrillation Current Visit: Yes Status: Acute Plan: per patient, she got history of atrial fibrillation, she is currently in sinus rhythm, continue to hold eliquis until after surgery.
--- NOTE | 2024-04-11 13:42 | CON ---
History Of Present Illness: This is a 48-year-old female with significant past medical history of hy pertension, hyperlipidemia, diabetes mellitus, depression, end-stage renal disease, on peritoneal jeanne lysis, bilateral BKA, who presents to the emergency room with right thigh discomfort and nausea and v omiting. Patient has been given IV and p.o. antibiotics as this complaint is going on for more than 3 weeks. Past Medical History: As per HPI. Social History: Nonsmoker. Nondrinker. Family History: Noncontributory. Medications: Include currently no antibiotic. Allergies: KETAMINE, MORPHINE, ZOFRAN. Review of Systems: 10-point review was performed. Physical Examination: General: This is a 48-year-old female, lying in the ER stretcher, not in any acute cardiopulmonary d istress. Vital Signs: Temperature 97, pulse 70, respiration 18, blood pressure 113/62. HEENT: Unremarkable. Neck: Supple. Lungs: Basal crackles. Heart: S1, S2. Regular. Abdomen: Soft, nontender. Bowel sounds present. Extremity: Right lower extremity with erythematous changes, increased warmth and tenderness, purplis h to red discoloration noted. Laboratory Data: Shows WBC 10.2, hemoglobin 9.1, platelets are 357. Chemistry shows sodium 126, pot assium 4.5, chloride 93, bicarb 24, BUN 56, creatinine 8, glucose is 107, albumin level is 1.7. Micr o data; blood cultures are pending. Assessment And Plan: Right leg cellulitis versus calciphylaxis. We will recommend to start the payton ent on Zosyn 2.25 g q.12 hours or meropenem 500 mg IV q.12 hours and vancomycin adjusted to her kidne y function for 2 weeks. Continue to follow up with Pain Management, diabetes control. Apply Betadin e to the thigh region where the purplish and red discoloration is present. We will follow the patien t on daily basis. We will follow the patient closely. Thank you, Dr. Chapman, for consult. NF/LYNNEL Voice ID: [id number] Report ID: [id number]
--- NOTE | 2024-04-11 14:19 | RAD REPORT ---
EXAM DESCRIPTION: CT - Femur Right Wo Con - 04/11/2024 6:45 am CLINICAL HISTORY: Female, 48 years old, right thigh infection , extend ct to right thigh COMPARISON: 04/04/2024 TECHNIQUE: CT acquisition of the pelvis and right thigh without contrast. Coronal and sagittal refor matted images provided. This exam was performed according to departmental dose-optimization program w hich includes automated exposure control, adjustment of the mA and/or kV according to patient size, a nd/or use of iterative reconstruction technique. FINDINGS: Soft tissue characterization limited by lack of intravenous contrast. Exam is also limited by reformations only provided in bone algorithm, mild photon starvation, and portions of the postero lateral thigh outside of the field of view. Slight interval worsening in degree and extent of extensive subcutaneous soft tissue stranding throug hout the right greater than left pelvis, in the right side. Asymmetric right thigh skin thickening is present. No evidence of fluid collection, deep fascial edema, or soft tissue gas. Intramuscular fat planes are preserved. Severe diffuse atherosclerosis. Small moderate volume of pelvic ascites, with partially imaged dialys is type catheter coiled in the left pelvis. No acute osseous finding, evidence of erosion or pathologic sclerosis. Mild degenerative changes of t he lumbosacral spine, sacroiliac joints, hips and right knee. Small right knee joint effusion. IMPRESSION: 1. Slight interval worsening of diffuse edema and/or inflammatory stranding throughout the right pelvis and right thigh from prior CT, without appreciable fluid collection or soft tissue gas. 2. Pelvic ascites may be related to peritoneal dialysis. 3. Additional chronic and incidental findings above. Electronically signed by: Akin Motta MD 04/11/2024 04:39 AM [facility] Due to temporary technical issues with the PACS/Fluency reporting system, reports are being signed by the in house radiologist without review as a courtesy to ensure prompt reporting. The interpreting r adiologist is fully responsible for the content of the report.
--- NOTE | 2024-04-11 14:21 | RAD REPORT ---
EXAM DESCRIPTION: CT - Pelvis Wo Cont - 04/11/2024 6:45 am CLINICAL HISTORY: Female, 48 years old, right thigh infection , extend ct to right thigh COMPARISON: 04/04/2024 TECHNIQUE: CT acquisition of the pelvis and right thigh without contrast. Coronal and sagittal refor matted images provided. This exam was performed according to departmental dose-optimization program w hich includes automated exposure control, adjustment of the mA and/or kV according to patient size, a nd/or use of iterative reconstruction technique. FINDINGS: Soft tissue characterization limited by lack of intravenous contrast. Exam is also limited by reformations only provided in bone algorithm, mild photon starvation, and portions of the postero lateral thigh outside of the field of view. Slight interval worsening in degree and extent of extensive subcutaneous soft tissue stranding throug hout the right greater than left pelvis, in the right side. Asymmetric right thigh skin thickening is present. No evidence of fluid collection, deep fascial edema, or soft tissue gas. Intramuscular fat planes are preserved. Severe diffuse atherosclerosis. Small moderate volume of pelvic ascites, with partially imaged dialys is type catheter coiled in the left pelvis. No acute osseous finding, evidence of erosion or pathologic sclerosis. Mild degenerative changes of t he lumbosacral spine, sacroiliac joints, hips and right knee. Small right knee joint effusion. IMPRESSION: 1. Slight interval worsening of diffuse edema and/or inflammatory stranding throughout the right pelvis and right thigh from prior CT, without appreciable fluid collection or soft tissue gas. 2. Pelvic ascites may be related to peritoneal dialysis. 3. Additional chronic and incidental findings above. Electronically signed by: Akin Motta MD 04/11/2024 04:39 AM [facility] Due to temporary technical issues with the PACS/Fluency reporting system, reports are being signed by the in house radiologist without review as a courtesy to ensure prompt reporting. The interpreting r adiologist is fully responsible for the content of the report.
[2024-04-11] MEDS: NA CHLORIDE 0.9% 500 ML ONE (15:10)
[2024-04-11] MEDS: SUCCINYLCHOLINE 20 MG/ML (10 ML) IV ONE (15:44)
[2024-04-11] MEDS ORDERED: propofoL 200 MG/20 ML VIAL IV ONE (15:52)
[2024-04-11] MEDS: LIDOCAINE HCL/EPINEPHRINE 20 ML MDV ONE (16:04)
--- NOTE | 2024-04-11 16:38 | P.OP ---
Preoperative diagnosis: Resistent Cellulitis, Possible Fascitis Postoperative diagnosis: Resistent Cellulitis, Possible Fascitis Primary procedure: Incision and Drainage of RIGHT Thigh Fluid Collection Anesthesia: MAC + Local Estimated blood loss: <2cc Specimen: Cultures Findings: Murky fluid in RIGHT Thigh Complications: None Transferred to: Recovery Room Condition: Good
[2024-04-11] MEDS: FENTANYL CITR 100 MCG/2 ML ONE (16:47)
[2024-04-11] MEDS ORDERED: SODIUM CHLORIDE IV SCH (17:00)
[2024-04-11] MEDS ORDERED: [UNRECOGNIZED DRUG - OTHER] IV SCH (17:00)
[2024-04-11] MEDS: EPOETIN ALFA 10,000 UNIT/ML VIAL IV SCH (18:19)
[2024-04-11] MEDS: ONDANSETRON 4 MG/2 ML VIAL IV ONE (18:21)
[2024-04-11] MEDS: Meropenem 500 MG in NA CHLORIDE 0.9% 100 ML IV ONE (20:49)
[2024-04-11] MEDS ORDERED: PIPER TAZO 2.25 GM in NA CHLORIDE 0.9% 50 ML IV SCH (21:00)
[2024-04-11] MEDS: HYDROMORPHONE HCL 1 MG/ML INJ IV PRN (21:48)
[2024-04-11] MEDS: PROMETHAZINE INJ 25 MG/ML AMP IV ONE (23:57)
[2024-04-12] MEDS ORDERED: CLINDAMYCIN INJ 600 MG in NA CHLORIDE 0.9% 50 ML IV SCH (01:00)
--- NOTE | 2024-04-12 03:03 | OP ---
Date of Procedure: 04/11/2024 Surgeon: Binh Lopez MD, Preoperative Diagnosis: Persistent cellulitis/possible fasciitis. Postoperative Diagnosis: Persistent cellulitis/possible fasciitis. Procedure Performed: Incision and drainage of right thigh fluid collection. Anesthesia: MAC plus local 1% lidocaine with epinephrine. Estimated Blood Loss: Less than 2 cc. Specimen: Cultures sent both aerobic and anaerobic speciation. Findings: Murky fluid in the right thigh was appreciated significant volume. Complication: None. Condition: The patient was transferred to recovery room in good condition. Procedure In Detail: After informed consent was obtained, the patient was brought to the operating r oom, prepped and draped in the usual sterile fashion. After adequate anesthesia was achieved, I made an incision over the right upper thigh area for approximately 4 cm in length down to the subcutaneou s tissues. I then dissected down into the planes using electrocautery down to approach the fascial p star to ensure there was no evidence of fasciitis. No fasciitis. No drummond fluid appreciated. Howeve r, some murky fluid was appreciated in the superficial planes. As I dissected down, I found that the re was no evidence of fasciitis at this time. I then irrigated the area copiously and suctioned out a significant amount of edema and edematous type fluid. Cultures were sent for both aerobic and anae robic speciation from the fluid as described above, which had murky appearance. No abscesses were ap preciated. However, the wound was then packed and left open. It was packed with Vashe-soaked Kerlix and a sterile dressing was placed over top. The patient tolerated the procedure well without incide nt or complication and transferred to PACU in good condition. All counts were correct at the end of the case. TK/MODL Voice ID: [id number] Report ID: [id number]
[2024-04-12] MEDS ORDERED: HYDROMORPHONE HCL 1 MG/ML INJ IV PRN (06:43)
--- NOTE | 2024-04-12 06:48 | P.PN ---
Date of Service: 04/12/24 Subjective Feels better since surgery reports pain is more releaved able to rest ROS 10 point ROS as noted above, otherwise negative Physical Exam General: Alert and Oriented x3, NAD HEENT: Atraumatic, Normocephalic, PERRLA Neck: Supple, 2+ carotid pulse no bruit Respiratory: Clear to auscultation bilaterally, Normal air movement Cardiovascular: Normal pulses, NSR, Normal S1 S2 present Capillary refill: <2 Seconds Gastrointestinal: Soft and benign on palpation, No tenderness, distended (Obese) Musculoskeletal: Erythema (right outer aspect of thigh), Tenderness (right outer ascept of thigh) Integumentary: Erythema (right outer ascept of thigh), Warmth (right outer ascept of thigh), Dressing CDI Neurological: Normal speech, Normal tone Vitals Reviewed Problem list Right lower extremity trauma/infection Prolonged QT/QTc Diabetes mellitusIDDM End-stage renal disease History HTN/HLD History of depression History of bilateral BKA History of hypothyroidism History of CHF History of CAD with coronary stents Assessment and Plan Right lower extremity trauma/infection -CT pelvis w/o contrast, CT lower extremity: slight interval worsening of diffuse edema and/or inflammatory stranding throughout the right pelvis and right thigh from prior CT without appreciable fluid collection or soft tissue gas. -Supportive care -IV antibiotic given in ED -Pain control -Follow blood cultures- NGTD -wound cultures-no WBC or organisms seen -Consult Dr. Alvarado Merrem 500 Q12H and Vanc IV for two weeks 04/25 after each dialysis -Dr. Lopez- I and D 04/11, daily dressing changes with vashe damp to dry Prolonged QT/QTc -QT/QTc 442/506 -Hold medications that prolong QT Diabetes mellitusIDDM -Accu-Check with sliding scale insulin End-stage renal disease Hyponatremia Hypocalcemia Anemia -H/H 7.6/22.6- type and screen in place, monitor in AM labs -Transfuse PRN -Sodium 126, Ca 7.8, PTH 182.5 -Peritoneal dialysis with home equipment -Dr. Suh consulted -Vancomycin and meropenem after each dialysis History HTN/HLD History of depression History of bilateral BKA History of hypothyroidism History of CHF History of CAD with coronary stents -Continue home medications -Continuous telemetry DVT PPx SCD Full code LOS 2 days Discharge Plan: Home Plan to discharge in: 48 Hours
[2024-04-12] MEDS: VANCOMYCIN 1 GM in NA CHLORIDE 0.9% 250 ML IVPB SCH (07:00)
[2024-04-12 07:17] LABS: Absolute Lymphocytes (CBC) 0.6 K/uL (0.7-4.9); Absolute Monocytes 0.6 K/uL (0.1-1.3); Absolute Neutrophil 7.3 K/uL (1.8-8.0); Basophils % 0.5 % (0-1.3); Eosinophils % 0.6 % (0-4.4); Hematocrit 22.6 % (36.0-45.0); Hemoglobin 7.6 g/dL (12.0-15.0); Lymphocytes % 6.7 % (15.3-44.8); MCH 30.7 pg (27.0-35.0); MCHC 33.5 g/dL (32.0-36.0); MCV 91.8 fL (80-100); MPV 7.9 fL (7.6-11.3); Monocytes % 7.4 % (3.3-12.3); Neutrophils % 84.8 % (41.7-73.7); Nucleated Red Blood Cells % 0.1 % (0-0); Platelets 283 thou/uL (152-406); RBC Red Blood Cell Count 2.46 M/uL (3.86-4.86); Red Cell Distribution Width 15.8 % (12.1-15.2)
[2024-04-12 07:39] LABS: Anion Gap 14.1 mEq/L (5.0-15.0); Magnesium 1.9 mg/dL (1.6-2.4); Phosphorus 8.8 mg/dL (2.5-4.9); Potassium 5.1 mEq/L (3.5-5.1)
[2024-04-12] MEDS: DOCUSATE NA 100 MG CAP PO SCH (09:00)
[2024-04-12] MEDS: Meropenem 500 MG in NA CHLORIDE 0.9% 100 ML IV SCH (09:00)
[2024-04-12] MEDS: NEPRO SHAKE 237 ML CAN PO SCH (09:00)
[2024-04-12] MEDS: SEVELAMER CARBONATE 800 MG TABLET PO SCH ×2 (09:07→12:12)
[2024-04-12] MEDS ORDERED: HYDROMORPHONE HCL 0.5 MG/0.5 ML INJ IM PRN (09:38)
[2024-04-12] MEDS: HYDROMORPHONE HCL 0.5 MG/0.5 ML INJ IV PRN (10:14)
[2024-04-12 11:10] LABS: Hematocrit 22.2 % (36.0-45.0); Hemoglobin 7.4 g/dL (12.0-15.0)
--- NOTE | 2024-04-12 12:09 | P.PN ---
(S) Pt reports pain a bit better controlled, surgery note reviewed, pt denies any dyspnea, denies any issues on CCPD overnight. Case discussed in detail with Dr. Ari Sainz reviewed in the EMR General: Oriented x3, Cooperative HEENT: Atraumatic, sclera anicteric, not needing O2 Neck: Supple Respiratory: Normal air movement, no rales or wheezes Cardiovascular: Regular rate/rhythm mostly Gastrointestinal: Soft and benign, obese, PD catheter present, some crusting, no drainage at exit site Musculoskeletal: b/l amputations Integumentary: Some SC edema, induration and mild erythema over Rt lateral thigh, some TTP persists, dressing over site of I/D Neurological: Normal speech, alert, non focal Laboratory data: Reviewed in the EMR Imagings Data: Conclusions/Impression: ESRD on PD -Cont CCPD per home prescription, monitor UF and metab profile Hyperphosphatemia -Increase phos binders dose Systolic Diastolic CHF, chronic. 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
[2024-04-12] MEDS: FUROSEMIDE 40 MG TABLET PO SCH (13:44)
[2024-04-12] MEDS: HYDROCODONE/APAP 7.5/325 MG TAB PO PRN (13:48)
--- NOTE | 2024-04-12 16:07 | EKG ---
Test Date: 2024-04-11 Test Time: 02:38:40 Division Leader: JEREMI MEASUREMENT RESULTS: Intervals: Rate: 79 IA: 138 QRSD: 106 QT: 442 QTc: 506 [place]: P: 30 IA: 138 QRS: 87 T: 219 INTERPRETIVE STATEMENTS: Normal sinus rhythm Anterolateral infarct, age undetermined ST & T wave abnormality, consider inferior ischemia Prolonged QT Abnormal ECG Compared to ECG 04/04/2024 16:00:25 ST (T wave) deviation now present T-wave abnormality no longer present Myocardial infarct finding still present Possible ischemia still present Electronically Signed On 04-12-24 16:06:47 CDT by Yony Sanders
[2024-04-13] MEDS ORDERED: VANCOMYCIN 1 GM in NA CHLORIDE 0.9% 250 ML IVPB SCH (05:00)
[2024-04-13 06:24] LABS: Absolute Basophils 0.1 K/uL (0-0.5); Absolute Eosinophils 0.1 K/uL (0-0.5); Absolute Lymphocytes (CBC) 0.7 K/uL (0.7-4.9); Absolute Monocytes 0.9 K/uL (0.1-1.3); Absolute Neutrophil 8.1 K/uL (1.8-8.0); Basophils % 0.5 % (0-1.3); Eosinophils % 0.8 % (0-4.4); Hematocrit 27.2 % (36.0-45.0); Hemoglobin 8.7 g/dL (12.0-15.0); Lymphocytes % 7.3 % (15.3-44.8); MCV 93.8 fL (80-100); MPV 8.6 fL (7.6-11.3); Monocytes % 9.2 % (3.3-12.3); Neutrophils % 82.2 % (41.7-73.7); Platelets 286 thou/uL (152-406); Red Cell Distribution Width 16.4 % (12.1-15.2)
[2024-04-13 06:27] LABS: Anion Gap 15.5 mEq/L (5.0-15.0); Phosphorus 8.4 mg/dL (2.5-4.9); Potassium 4.5 mEq/L (3.5-5.1)
[2024-04-13] MEDS: Mupirocin NASAL 2 APPL/1 GM TUBE NAS SCH (10:13)
--- NOTE | 2024-04-13 12:17 | P.PN ---
(S) Continues to have pain in Rt thigh, difficult transferring/ambulating, swelling also creating issues for putting on prosthetic limbs. Total UF on CCPD low at just under 500 cc Vitals reviewed in the EMR General: Oriented x3, Cooperative HEENT: Atraumatic, sclera anicteric, not needing O2 Neck: Supple Respiratory: Normal air movement, no rales or wheezes Cardiovascular: Regular rate/rhythm mostly Gastrointestinal: Soft and benign, obese, PD catheter present, some crusting, no drainage at exit site Musculoskeletal: b/l amputations Integumentary: Some SC edema, induration and mild erythema over Rt lateral thigh, some TTP persists, dressing over site of I/D Neurological: Normal speech, alert, non focal Laboratory data: Reviewed in the EMR Imagings Data: Conclusions/Impression: ESRD on PD -Cont CCPD per home prescription but will ask her to use red/green bag combo today, monitor UF and metab profile. Non anuric, will place on IV lasix to increase UOP Hyperphosphatemia -Increased phos binders dose Systolic Diastolic CHF, chronic. 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
[2024-04-13] MEDS: VANCOMYCIN 1 GM in NA CHLORIDE 0.9% 250 ML IVPB SCH (12:49)
[2024-04-13] MEDS: SCOPOLAMINE HYDROBROMIDE PATCH TD SCH (14:48)
--- NOTE | 2024-04-13 19:39 | P.PN ---
Date of Service: 04/13/24 Subjective Awake and c/o some increased pain Requesting stronger pain medications but refusing norco ROS 10 point ROS as noted above, otherwise negative Physical Exam General: AAO x3, NAD HEENT: Atraumatic, Normocephalic, PERRLA Neck: Supple, 2+ carotid pulse no bruit Respiratory: Clear to auscultation bilaterally, symmetrical chest wall movement, on room air Cardiovascular: regular rate and thythm, Normal S1 S2 present Capillary refill: <2 Seconds Gastrointestinal: Soft and benign on palpation, No tenderness, distended (Obese) Musculoskeletal: Erythema (right outer aspect of thigh), Tenderness (right outer ascept of thigh) Integumentary: Erythema (right outer ascept of thigh), Warmth (right outer ascept of thigh), Dressing CDI Neurological: Normal speech, Normal tone Vitals Reviewed Problem list Right lower extremity trauma/infection Prolonged QT/QTc Diabetes mellitusIDDM End-stage renal disease History HTN/HLD History of depression History of bilateral BKA History of hypothyroidism History of CHF History of CAD with coronary stents Assessment and Plan Right lower extremity trauma/infection -CT pelvis w/o contrast, CT lower extremity: slight interval worsening of diffuse edema and/or inflammatory stranding throughout the right pelvis and right thigh from prior CT without appreciable fluid collection or soft tissue gas. -Supportive care -IV antibiotic given in ED -Pain control, norco and dilaudid, she is refusing norco -Follow blood cultures- NGTD -wound cultures-no WBC or organisms seen -Consult Dr. Alvarado Merrem 500 IV and Vanc IV for two weeks 04/25 after each dialysis -Dr. Lopez- I and D 04/11, daily dressing changes with vashe damp to dry -Midline ordered Prolonged QT/QTc -QT/QTc 450/519 on repeat EKG 04/12 -Hold medications that prolongs QT Diabetes mellitusIDDM -Accu-Check with sliding scale insulin End-stage renal disease Hyponatremia Hypocalcemia Anemia -H/H 8.7/27.6- type and screen in place, monitor in AM labs -Transfuse PRN -Sodium 127, Ca 7.9, PTH 182.5 -Peritoneal dialysis with home equipment -Dr. Suh consulted -Vancomycin and meropenem after each dialysis History HTN/HLD History of depression History of bilateral BKA History of hypothyroidism History of CHF History of CAD with coronary stents -Continue home medications -Continuous telemetry DVT PPx SCD Full code LOS 2 days Discharge Plan: Home Plan to discharge in: 48 Hours
[2024-04-13] MEDS: Oxycodone HCl/Acetaminophen 5/325 MG TAB PO ONE (20:19)
[2024-04-14 06:33] LABS: Absolute Basophils 0.1 K/uL (0-0.5); Absolute Eosinophils 0.2 K/uL (0-0.5); Absolute Lymphocytes (CBC) 0.9 K/uL (0.7-4.9); Absolute Monocytes 0.9 K/uL (0.1-1.3); Absolute Neutrophil 7.1 K/uL (1.8-8.0); Basophils % 1.1 % (0-1.3); Hematocrit 25.5 % (36.0-45.0); Hemoglobin 8.7 g/dL (12.0-15.0); Lymphocytes % 9.8 % (15.3-44.8); MCH 31.3 pg (27.0-35.0); MCHC 34.2 g/dL (32.0-36.0); MCV 91.6 fL (80-100); MPV 7.8 fL (7.6-11.3); Neutrophils % 77.1 % (41.7-73.7); Platelets 348 thou/uL (152-406); RBC Red Blood Cell Count 2.79 M/uL (3.86-4.86); Red Cell Distribution Width 16.1 % (12.1-15.2)
[2024-04-14 06:55] LABS: Magnesium 1.9 mg/dL (1.6-2.4); Phosphorus 7.7 mg/dL (2.5-4.9)
--- NOTE | 2024-04-14 07:16 | P.PN ---
Date of Service: 04/14/24 Subjective Dressing changed yesterday caused extreme pain Pain has been relieved more today No new complaint ROS 10 point ROS as noted above, otherwise negative Physical Exam General: Alert and oriented x3, NAD, comfortable HEENT: Atraumatic, Normocephalic, PERRLA Neck: Supple, 2+ carotid pulse no bruit Respiratory: Clear to auscultation bilaterally, symmetrical chest wall movement, on room air Cardiovascular: RRR, Normal S1 S2 present Capillary refill: <2 Seconds Gastrointestinal: Soft and benign on palpation, NT, distended (Obese), active bowel sounds Musculoskeletal: Erythema (right outer aspect of thigh), Tenderness (right outer ascept of thigh) Integumentary: Erythema (right outer ascept of thigh), Warmth (right outer ascept of thigh), Dressing CDI Neurological: Normal speech, Normal tone Vitals Reviewed Problem list Right lower extremity trauma/infection Prolonged QT/QTc Diabetes mellitusIDDM End-stage renal disease History HTN/HLD History of depression History of bilateral BKA History of hypothyroidism History of CHF History of CAD with coronary stents Assessment and Plan Right lower extremity trauma/infection -CT pelvis w/o contrast, CT lower extremity: slight interval worsening of diffuse edema and/or inflammatory stranding throughout the right pelvis and right thigh from prior CT without appreciable fluid collection or soft tissue gas. -Supportive care -IV antibiotic given in ED -Pain control, norco and dilaudid, she is refusing norco -Follow blood cultures- NGTD -wound cultures-no WBC or organisms seen -Consult Dr. Alvarado Merrem 500 IV and Vanc IV for two weeks 04/25 after each dialysis -Dr. Lopez- I and D 04/11, daily dressing changes with vashe damp to dry -Midline ordered Prolonged QT/QTc -QT/QTc 450/519 on repeat EKG 04/12 -Hold medications that prolongs QT Diabetes mellitusIDDM -Accu-Check with sliding scale insulin End-stage renal disease Hyponatremia Hypocalcemia Anemia -H/H 8.7/25.5 -Transfuse PRN -Sodium 130, Ca 7.9, PTH 182.5 -Peritoneal dialysis with home equipment -Dr. Suh consulted -Vancomycin and meropenem after each dialysis History HTN/HLD History of depression History of bilateral BKA History of hypothyroidism History of CHF History of CAD with coronary stents -Continue home medications -Continuous telemetry DVT PPx SCD Full code LOS 2 days Discharge Plan: Inpatient rehab, waiting on authorization
[2024-04-14] MEDS: Meropenem 500 MG in NA CHLORIDE 0.9% 100 ML IV SCH (07:25)
--- NOTE | 2024-04-14 13:01 | P.PN ---
(S) No overnight issues on CCPD, s/p dressing change of Rt thigh I&D yesterday, reports pain with dressing change but otherwise mostly controlled Vitals reviewed in the EMR General: Oriented x3, Cooperative HEENT: Atraumatic, sclera anicteric, not needing O2 Neck: Supple Respiratory: Normal air movement, no rales or wheezes Cardiovascular: Regular rate/rhythm mostly Gastrointestinal: Soft and benign, obese, PD catheter present, some crusting, no drainage at exit site Musculoskeletal: b/l amputations Integumentary: Some SC edema, induration and mild erythema over Rt lateral thig h, some TTP persists, dressing over site of I/D Neurological: Normal speech, alert, non focal Laboratory data: Reviewed in the EMR Imagings Data: Conclusions/Impression: ESRD on PD -Cont CCPD per home prescription but will ask her to use red/green bag combo intermittently, monitor UF and metab profile. Non anuric, cont Lasix Hyperphosphatemia -Increased phos binders dose Systolic Diastolic CHF, chronic. 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
[2024-04-14] MEDS: PANTOPRAZOLE 40MG TABLET PO SCH (14:50)
[2024-04-14] MEDS: FUROSEMIDE 40 MG TABLET PO SCH (18:16)
[2024-04-14] MEDS: SACUBITRIL/VALSARTAN 24/26 MG TAB PO SCH (20:59)
[2024-04-14] MEDS: SUCRALFATE 1 GM TABLET PO PRN (21:06)
[2024-04-14] MEDS: MAGNES/ALUMIN/SIMET 30ML UCUP PO ONE (23:44)
[2024-04-15 06:40] LABS: Absolute Basophils 0.1 K/uL (0-0.5); Absolute Eosinophils 0.2 K/uL (0-0.5); Absolute Lymphocytes (CBC) 0.8 K/uL (0.7-4.9); Absolute Neutrophil 7.9 K/uL (1.8-8.0); Basophils % 0.7 % (0-1.3); Eosinophils % 1.5 % (0-4.4); Hematocrit 26.7 % (36.0-45.0); Hemoglobin 9.1 g/dL (12.0-15.0); Lymphocytes % 8.3 % (15.3-44.8); MCH 31.2 pg (27.0-35.0); MCHC 34.1 g/dL (32.0-36.0); MCV 91.5 fL (80-100); MPV 8.1 fL (7.6-11.3); Neutrophils % 79.5 % (41.7-73.7); Nucleated Red Blood Cells % 0.1 % (0-0); Platelets 397 thou/uL (152-406); RBC Red Blood Cell Count 2.92 M/uL (3.86-4.86); Red Cell Distribution Width 15.7 % (12.1-15.2)
[2024-04-15 06:50] LABS: Anion Gap 12.8 mEq/L (5.0-15.0); Phosphorus 6.3 mg/dL (2.5-4.9); Potassium 3.8 mEq/L (3.5-5.1)
--- NOTE | 2024-04-15 07:04 | P.PN ---
Date of Service: 04/15/24 Subjective c/o pain, requested a sleep aid but then changed her mind and requests to have it changed to tonight difficult to control with pain, nausea, and sleep ROS 10 point ROS as noted above, otherwise negative Physical Exam General: Alert and oriented x3, NAD, comfortable HEENT: Atraumatic, Normocephalic, PERRLA Neck: Supple, 2+ carotid pulse no bruit Respiratory: Nonlabored breathing, symmetrical chest wall movement, on room air Cardiovascular: Regular rate and rhythm, Normal S1 S2 present Capillary refill: <2 Seconds Gastrointestinal: Soft and benign on palpation, NT, distended (Obese), active bowel sounds Musculoskeletal: Erythema (right outer aspect of thigh), Tenderness (right outer ascept of thigh) Integumentary: Erythema (right outer ascept of thigh), Warmth (right outer ascept of thigh), Dressing CDI Neurological: Normal speech, Normal tone Vitals Reviewed Problem list Right lower extremity trauma/infection Prolonged QT/QTc Diabetes mellitusIDDM End-stage renal disease History HTN/HLD History of depression History of bilateral BKA History of hypothyroidism History of CHF History of CAD with coronary stents Assessment and Plan Right lower extremity trauma/infection -CT pelvis w/o contrast, CT lower extremity: slight interval worsening of diffuse edema and/or inflammatory stranding throughout the right pelvis and right thigh from prior CT without appreciable fluid collection or soft tissue gas. -Supportive care -IV antibiotic given in ED -Pain control, norco and dilaudid, she is refusing norco -Follow blood cultures- NGTD -wound cultures-no WBC or organisms seen -Consult Dr. Alvarado Merrem 500 IV and Vanc IV for two weeks 04/25 after each dialysis -Dr. Lopez- I and D 04/11, daily dressing changes with vashe damp to dry -Midline ordered Prolonged QT/QTc -QT/QTc 450/519 on repeat EKG 04/12 -Hold medications that prolongs QT Diabetes mellitusIDDM -Accu-Check with sliding scale insulin End-stage renal disease Hyponatremia Hypocalcemia Anemia -H/H stable -Transfuse PRN -Sodium 129, Ca 7.8, PTH 182.5 -Peritoneal dialysis with home equipment -Dr. Suh consulted -Vancomycin and meropenem after each dialysis History HTN/HLD History of depression History of bilateral BKA History of hypothyroidism History of CHF History of CAD with coronary stents -Continue home medications -Continuous telemetry DVT PPx SCD Full code LOS 2 days Discharge Plan: Inpatient rehab, waiting on authorization
[2024-04-15] MEDS: POTASSIUM CL SA 10 MEQ TAB PO ONE (08:08)
[2024-04-15] MEDS: SCOPOLAMINE HYDROBROMIDE PATCH TD SCH (09:00)
[2024-04-15] MEDS: HYDROMORPHONE HCL 0.5 MG/0.5 ML INJ IV PRN (09:55)
[2024-04-15] MEDS: LIDOCAINE 4% PATCH TOP SCH (09:57)
[2024-04-15] MEDS: TRAZODONE 50 MG TABLET PO ONE ×2 (12:11→20:33)
--- NOTE | 2024-04-15 13:05 | P.PN ---
(S) No overnight issues on CCPD, still having trouble fitting prosthetic limbs on to ambulate. No acute dyspnea, no N/V Vitals reviewed in the EMR General: Oriented x3, Cooperative HEENT: Atraumatic, sclera anicteric, not needing O2 Neck: Supple Respiratory: Normal air movement, no rales or wheezes Cardiovascular: Regular rate/rhythm mostly Gastrointestinal: Soft and benign, obese, PD catheter present, some crusting, no drainage at exit site Musculoskeletal: b/l amputations Integumentary: Some SC edema, induration and mild erythema over Rt lateral thigh, some TTP persists, dressing over site of I/D Neurological: Normal speech, alert, non focal Laboratory data: Reviewed in the EMR Imagings Data: Conclusions/Impression: ESRD on PD -Cont CCPD per home prescription but will ask her to use red/green bag combo intermittently, monitor UF and metab profile. Non anuric, cont Lasix Hyperphosphatemia -Increased phos binders dose Systolic Diastolic CHF, chronic. Severe ischemic CMP Moderate Pulmonary HTN -Compensated, cont loop diuretics, cont vol regulation, monitor UF closely on CCPD, pt counseled -Resumed home dose Entresto but will lower dose to 1/2 tab and holding parameters placed. 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 Pharmacy ordered level is elevated, will hold Vanc until level < 19 -Ok to cont IV Abx via Rt UE mid or picc line for a specified duration per ID -s/p sodium thiosulfate dose(s), will order additional doses this week. 25 gm IV 3x/week
[2024-04-15] MEDS: SACUBITRIL/VALSARTAN 24/26 MG TAB PO SCH (20:32)
[2024-04-16 05:44] LABS: Hematocrit 26.8 % (36.0-45.0); Hemoglobin 8.5 g/dL (12.0-15.0); RBC Red Blood Cell Count 2.88 M/uL (3.86-4.86)
[2024-04-16 05:45] LABS: MCH 29.4 pg (27.0-35.0); MCV 93.2 fL (80-100)
[2024-04-16 05:48] LABS: Basophils % 0.4 % (0-1.3); Eosinophils % 1.9 % (0-4.4); Lymphocytes % 6.9 % (15.3-44.8); MCHC 31.6 g/dL (32.0-36.0); MPV 8.1 fL (7.6-11.3); Monocytes % 9.3 % (3.3-12.3); Neutrophils % 81.5 % (41.7-73.7); Platelets 377 thou/uL (152-406); Red Cell Distribution Width 15.5 % (12.1-15.2)
[2024-04-16 05:49] LABS: Absolute Eosinophils 0.2 K/uL (0-0.5); Absolute Lymphocytes (CBC) 0.7 K/uL (0.7-4.9); Absolute Neutrophil 8.5 K/uL (1.8-8.0); Magnesium 2.1 mg/dL (1.6-2.4); Phosphorus 5.5 mg/dL (2.5-4.9)
[2024-04-16] MEDS ORDERED: SCOPOLAMINE HYDROBROMIDE PATCH TD SCH (09:00)
[2024-04-16] MEDS ORDERED: LIDOCAINE 4% PATCH TOP SCH (09:00)
--- NOTE | 2024-04-16 09:47 | P.PN ---
Date of Service: 04/16/24 Subjective Continues to be uncomfortable, not able to sleep, now with diarrhea likely from antibiotic therapy Awaiting INP rehab placement ROS 10 point ROS as noted above, otherwise negative Physical Exam General: Awake, alert, and oriented x3, NAD, uncomfortable HEENT: Atraumatic, Normocephalic, PERRLA Neck: Supple, 2+ carotid pulse no bruit Respiratory: Nonlabored breathing, symmetrical chest wall movement, on room air Cardiovascular: NSR, Normal S1 S2 present Capillary refill: <2 Seconds Gastrointestinal: Soft and benign on palpation, NT, distended (Obese), active bowel sounds Musculoskeletal: Erythema (right outer aspect of thigh), Tenderness (right outer ascept of thigh) Integumentary: Erythema (right outer ascept of thigh), Warmth (right outer ascept of thigh), Dressing CDI Neurological: Normal speech, Normal tone Vitals Reviewed Problem list Right lower extremity trauma/infection Prolonged QT/QTc Diabetes mellitusIDDM End-stage renal disease History HTN/HLD History of depression History of bilateral BKA History of hypothyroidism History of CHF History of CAD with coronary stents Assessment and Plan Right lower extremity trauma/infection Diarrhea -CT pelvis w/o contrast, CT lower extremity: slight interval worsening of diffuse edema and/or inflammatory stranding throughout the right pelvis and right thigh from prior CT without appreciable fluid collection or soft tissue gas. -Supportive care -IV antibiotic given in ED -Pain control, norco and dilaudid, she is refusing norco d/t upset stomach -Lidocaine patch -Follow blood cultures- NGTD -wound cultures-no WBC or organisms seen -Consult Dr. Alvarado Merrem 500 IV and Vanc IV for two weeks 04/25 after each dialysis -Dr. Lopez- I and D 04/11, daily dressing changes with vashe damp to dry -Midline placed Hypotensive Prolonged QT/QTc -QT/QTc 450/519 on repeat EKG 04/12 -Hold medications that prolongs QT -Midodrine started 04/16 Diabetes mellitusIDDM -Accu-Check with sliding scale insulin End-stage renal disease Hyponatremia Hypocalcemia Anemia -H/H stable- continue to monitor -Transfuse PRN -Sodium 129, Ca 7.8, PTH 182.5 -Peritoneal dialysis with home equipment -Dr. Suh consulted -Vancomycin and meropenem after each dialysis History HTN/HLD History of depression History of bilateral BKA History of hypothyroidism History of CHF History of CAD with coronary stents -Continue home medications -Continuous telemetry DVT PPx SCD Full code LOS 2 days Discharge Plan: Inpatient rehab, waiting on authorization
[2024-04-16] MEDS: MIDODRINE HCL 5 MG TABLET PO SCH (11:30)
[2024-04-16] MEDS: LACTOBACILLUS/ACIDOPHILUS TAB PO SCH (11:30)
[2024-04-16] MEDS: EPOETIN ALFA 10,000 UNIT/ML VIAL SQ SCH (16:35)
[2024-04-17] MEDS: KETOROLAC 30 MG/ML INJ IV ONE (00:58)
[2024-04-17] MEDS ORDERED: HYDROMORPHONE HCL 1 MG/ML INJ IV ONE (01:20)
[2024-04-17] MEDS: HYDROMORPHONE HCL 0.5 MG/0.5 ML INJ IV ONE ×2 (01:45→04:01)
--- NOTE | 2024-04-17 09:03 | EKG ---
Test Date: 2024-04-15 Test Time: 16:12:59 Layer Off: JAROD MEASUREMENT RESULTS: Intervals: Rate: 75 MA: 160 QRSD: 110 QT: 448 QTc: 500 [place]: P: 39 MA: 160 QRS: 118 T: -74 INTERPRETIVE STATEMENTS: Normal sinus rhythm Right axis deviation Cannot rule out Anterior infarct, age undetermined T wave abnormality, consider inferior ischemia Prolonged QT Abnormal ECG Compared to ECG 04/12/2024 16:16:42 Right-axis deviation now present T-wave abnormality now present Possible ischemia now present Myocardial infarct finding still present Electronically Signed On 04-17-24 09:02:36 CDT by Yony Sanders
--- NOTE | 2024-04-17 09:06 | EKG ---
Test Date: 2024-04-12 Test Time: 16:15:32 [employer]: VH MEASUREMENT RESULTS: Intervals: Rate: 80 DC: 156 QRSD: 114 QT: 456 QTc: 525 [place]: P: 28 DC: 156 QRS: 25 T: 25 INTERPRETIVE STATEMENTS: Normal sinus rhythm Septal infarct, age undetermined Lateral infarct, age undetermined Prolonged QT Abnormal ECG Compared to ECG 04/11/2024 02:38:40 ST (T wave) deviation no longer present Possible ischemia no longer present Myocardial infarct finding still present Electronically Signed On 04-17-24 09:05:14 CDT by Yony Sanders
--- NOTE | 2024-04-17 11:39 | PN ---
Subjective: Patient lying in bed. No new acute event. Chart reviewed. Complains of left side shaina lar lesions coming up. Objective: Vital Signs: Temperature 97, pulse 59, respirations 12, blood pressure 96/52. Lungs: Basal crackles. Heart: S1, S2. Regular. Abdomen: Soft, nontender. Bowel sounds present. Extremity: Bilateral BKA. Right thigh purplish discoloration wound noted. Surgical wound noted. L eft thigh with purplish discoloration. Assessment And Plan: Cellulitis of bilateral thighs in a patient with end-stage renal disease. Aayush mmend to continue vancomycin and meropenem. Apply Betadine to the thigh region on the area of purpli sh discoloration. Continue supportive care. We will follow the patient as needed. NF/MODL Voice ID: [id number] Report ID: [id number]
--- NOTE | 2024-04-17 14:25 | P.PN ---
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 Hypotension is limiting narcotic use, pain is not controlled Awaiting INP rehab placement ROS 10 point ROS as noted above, otherwise negative Physical Exam General: AAO x3, NAD, uncomfortable HEENT: Atraumatic, Normocephalic, PERRLA Neck: Supple, 2+ carotid pulse no bruit Respiratory: Bilaterally clear breath sounds symmetrical chest wall movement, on room air Cardiovascular: Regular rate and rhythm, Normal S1 S2 present Capillary refill: <2 Seconds Gastrointestinal: Soft and benign on palpation, NT, distended (Obese), active bowel sounds Musculoskeletal: Erythema (right outer aspect of thigh), Tenderness (right outer ascept of thigh), tenderness and warmth (left outer aspect of thigh) Integumentary: Erythema (right and left outer ascept of thigh), Warmth (right and left outer ascept of thigh), Right Dressing CDI Neurological: Normal speech, Normal tone Vitals Reviewed Problem list Right lower extremity trauma/infection Prolonged QT/QTc Diabetes mellitusIDDM End-stage renal disease History HTN/HLD History of depression History of bilateral BKA History of hypothyroidism History of CHF History of CAD with coronary stents Assessment and Plan Right lower extremity trauma/infection Diarrhea -CT pelvis w/o contrast, CT lower extremity: slight interval worsening of diffuse edema and/or inflammatory stranding throughout the right pelvis and right thigh from prior CT without appreciable fluid collection or soft tissue gas. -Supportive care -IV antibiotic given in ED -Pain control, norco and dilaudid, she is refusing norco d/t upset stomach -Lidocaine patch -Follow blood cultures- NGTD -wound cultures-no WBC or organisms seen, no anaerobe grown -Consult Dr. Alvarado Merrem 500 IV and Vanc IV for two weeks 04/25 after each dialysis -Dr. Lopez- I and D 04/11, daily dressing changes with vashe damp to dry -Betadine to right and left thigh, skin breakdown -Midline placed Hypotensive Prolonged QT/QTc -QT/QTc 450/519 on repeat EKG 04/12 -Hold medications that prolongs QT -BP 110/64 -Midodrine started 04/16 Diabetes mellitusIDDM -Accu-Check with sliding scale insulin End-stage renal disease Hyponatremia Hypocalcemia Anemia -H/H stable- continue to monitor -Transfuse PRN -Sodium 129, Ca 7.8, PTH 182.5 -Peritoneal dialysis with home equipment -Dr. Suh consulted -Continuing vancomycin and meropenem after each dialysis -Vancomycin trough 23.4, will hold vanc History HTN/HLD History of depression History of bilateral BKA History of hypothyroidism History of CHF History of CAD with coronary stents -Continue home medications -Continuous telemetry DVT PPx SCD Full code LOS 2 days Discharge Plan: Inpatient rehab, waiting on authorization
[2024-04-17] MEDS: HYDROMORPHONE HCL 0.5 MG/0.5 ML INJ IV PRN (15:03)
[2024-04-17 15:24] LABS: Anion Gap 10.6 mEq/L (5.0-15.0); Magnesium 1.8 mg/dL (1.6-2.4); Phosphorus 6.7 mg/dL (2.5-4.9); Potassium 4.6 mEq/L (3.5-5.1)
[2024-04-17 15:29] LABS: Absolute Basophils 0.1 K/uL (0-0.5); Absolute Eosinophils 0.3 K/uL (0-0.5); Absolute Lymphocytes (CBC) 1.1 K/uL (0.7-4.9); Absolute Neutrophil 7.8 K/uL (1.8-8.0); Basophils % 0.9 % (0-1.3); Eosinophils % 3.1 % (0-4.4); Hematocrit 24.6 % (36.0-45.0); Hemoglobin 7.9 g/dL (12.0-15.0); Lymphocytes % 10.5 % (15.3-44.8); MCH 30.1 pg (27.0-35.0); MCHC 32.1 g/dL (32.0-36.0); MCV 93.9 fL (80-100); MPV 8.1 fL (7.6-11.3); Neutrophils % 75.5 % (41.7-73.7); Nucleated Red Blood Cells % 0.1 % (0-0); Platelets 386 thou/uL (152-406); RBC Red Blood Cell Count 2.61 M/uL (3.86-4.86); Red Cell Distribution Width 15.9 % (12.1-15.2)
[2024-04-18 05:03] LABS: Absolute Basophils 0.1 K/uL (0-0.5); Absolute Eosinophils 0.4 K/uL (0-0.5); Absolute Monocytes 1.1 K/uL (0.1-1.3); Absolute Neutrophil 8.9 K/uL (1.8-8.0); Basophils % 1.1 % (0-1.3); Eosinophils % 3.2 % (0-4.4); Hematocrit 23.8 % (36.0-45.0); Hemoglobin 7.9 g/dL (12.0-15.0); Lymphocytes % 8.9 % (15.3-44.8); MCH 30.7 pg (27.0-35.0); MCV 93.1 fL (80-100); MPV 7.7 fL (7.6-11.3); Monocytes % 9.3 % (3.3-12.3); Neutrophils % 77.5 % (41.7-73.7); Nucleated Red Blood Cells % 0.3 % (0-0); Platelets 409 thou/uL (152-406); RBC Red Blood Cell Count 2.56 M/uL (3.86-4.86)
[2024-04-18 05:34] LABS: Anion Gap 13.1 mEq/L (5.0-15.0); Magnesium 1.8 mg/dL (1.6-2.4); Phosphorus 6.1 mg/dL (2.5-4.9); Potassium 4.1 mEq/L (3.5-5.1)
--- NOTE | 2024-04-18 07:20 | P.PN ---
Date of Service: 04/18/24 Subjective Awake eating breakfast and sitting up in bed reports pain yesterday was worse than this morning Changes to pain medication Awaiting INP rehab placement ROS 10 point ROS as noted above, otherwise negative Physical Exam General: Awake, alert, and oriented x3, NAD, uncomfortable HEENT: Atraumatic, Normocephalic, PERRLA Neck: Supple, 2+ carotid pulse no bruit Respiratory: Nonlabored breathing, symmetrical chest wall movement, on room air Cardiovascular: NSR, Normal S1 S2 present, hypotensive Capillary refill: <2 Seconds Gastrointestinal: Soft and benign on palpation, NT, distended (Obese), active bowel sounds Musculoskeletal: Erythema (right outer aspect of thigh), Tenderness (right outer ascept of thigh) Integumentary: Erythema (right outer ascept of thigh), Warmth (right outer ascept of thigh), Dressing CDI Neurological: Normal speech, Normal tone Vitals Reviewed Problem list Right lower extremity trauma/infection Prolonged QT/QTc Diabetes mellitusIDDM End-stage renal disease History HTN/HLD History of depression History of bilateral BKA History of hypothyroidism History of CHF History of CAD with coronary stents Assessment and Plan Right lower extremity trauma/infection Bilateral thigh cellulitis Diarrhea -CT pelvis w/o contrast, CT lower extremity: slight interval worsening of diffuse edema and/or inflammatory stranding throughout the right pelvis and right thigh from prior CT without appreciable fluid collection or soft tissue gas. -Supportive care -IV antibiotic given in ED -Pain control, norco and dilaudid, she is refusing norco d/t upset stomach -Lidocaine patch -Follow blood cultures- NGTD -wound cultures-no WBC or organisms seen -Consult Dr. Alvarado Merrem 500 IV and Vanc IV for two weeks 04/25 after each dialysis -Van trough 21.5, vanc per pharmacy -bedtadine to bilateral thigh cellulitis, right thigh add petroleum gauze with island dressing -Dr. Lopez- I and D 04/11, daily dressing changes with vashe damp to dry -Midline placed Hypotensive Prolonged QT/QTc -QT/QTc 450/519 on repeat EKG 04/12 -Hold medications that prolongs QT -BP 91/42 -limiting pain medication administration -Midodrine started 04/16 Diabetes mellitusIDDM -Accu-Check with sliding scale insulin End-stage renal disease Hyponatremia Hypocalcemia Anemia -H/H stable- continue to monitor -Transfuse PRN -Sodium 1.30, Ca 7.5, PTH 182.5 -Peritoneal dialysis with home equipment -Dr. Suh consulted -Vancomycin and meropenem after each dialysis, vanc managed per pharmacy History HTN/HLD History of depression History of bilateral BKA History of hypothyroidism History of CHF History of CAD with coronary stents -Continue home medications -Continuous telemetry DVT PPx SCD Full code LOS 2 days Discharge Plan: Inpatient rehab, waiting on authorization <SaadJuanitaLizz - Last Filed: 04/18/24 14:43> Patient seen and examined. Plan of care discussed with Ms. Nash Patient is complaining of uncontrolled pain in the right thigh. She has developed abrasion wound over area of erythema posterior lateral right thigh. Incision wound is packed and looks clean. 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 No change in bilateral thigh edema. Patient is getting IV Lasix. Case discussed with nephrology Dr. Suh and a trial of hemodialysis as compared to prior treatment dialysis being considered to help improve her thigh edema. Analgesics as needed. [place] changed to hydromorphone which is better for ESRD. Titrate oral hydromorphone. Continue PT. Infectious diseases following and managing with antibioticss <humberto hardin - Last Filed: 04/18/24 16:51>
[2024-04-18] MEDS: HYDROMORPHONE HCL 1 MG/ML INJ IV ONE (12:10)
[2024-04-18] MEDS: HYDROMORPHONE HCL 0.5 MG/0.5 ML INJ IV ONE (12:25)
[2024-04-18] MEDS ORDERED: VANCOMYCIN 1 GM in NA CHLORIDE 0.9% 250 ML IVPB SCH (13:00)
--- NOTE | 2024-04-18 13:05 | PN ---
Subjective: The patient lying in bed. No new acute event. Continued to have discomfort in her thig h region. Objective: Vital Signs: Reviewed. Lungs: Basal crackles. Heart: S1, S2. Regular. Abdomen: Soft, nontender. Bowel sounds present. Extremity: Erythematous changes noted in both lower extremities in both thigh region on the lateral aspect with the purplish discoloration and some denuded skin also noted on the right thigh. Laboratory Data: WBC 11.5, hemoglobin 7.9, platelets 409. Chemistry shows BUN of 52, creatinine 8.4 . Assessment And Plan: Bilateral thigh region cellulitis with the skin being sloughing off. I will re commend to apply Betadine and then petroleum gauze, covered with island dressing on the right thigh. On the left thigh, just apply Betadine and monitor for signs of infection. Repeat CBC and BMP. Con tinue current treatment with meropenem and vancomycin. We will follow the patient as needed. NF/MODL Voice ID: [id number] Report ID: [id number]
[2024-04-18] MEDS: HYDROMORPHONE ORAL 2 MG TAB PO PRN (13:48)
--- NOTE | 2024-04-18 18:51 | P.PN ---
Date of Service: 04/18/24 Vital Signs Temp Pulse Resp BP Pulse Ox 97.2 F 76 17 106/53 L 98 04/18/24 16:00 04/18/24 16:18 04/18/24 16:49 04/18/24 16:18 04/18/24 16:49 Medications Hydrocodone Bitart/Acetaminophen (Hydrocodone/Apap 7.5/325 Mg Tab) 1 tab PO Q6H PRN PRN Reason: Pain scale 5-7 (Moderate) Last Admin: 04/17/24 12:31 Dose: 1 tab Docusate Sodium (Docusate Na 100 Mg Cap) 100 mg PO BID [facility] Last Admin: 04/18/24 09:00 Dose: Not Given Enteral Nutritional Formula (Nepro Shake 237 Ml Can) 237 ml PO TID [facility] Last Admin: 04/18/24 14:00 Dose: Not Given Epoetin Castro (Epoetin Castro 10,000 Unit/Ml Vial) 10,000 unit SQ MoWeFr@1700 [facility] Last Admin: 04/18/24 16:48 Dose: 10,000 unit Furosemide (Furosemide 40 Mg Tablet) 40 mg PO BIDL [facility] Last Admin: 04/18/24 16:18 Dose: 40 mg Hydromorphone HCl (Hydromorphone Hcl 0.5 Mg/0.5 Ml Inj) 0.25 mg IV Q4H PRN PRN Reason: Pain scale 8-10 (Severe) Last Admin: 04/18/24 16:19 Dose: 0.25 mg Hydromorphone HCl (Hydromorphone Oral 2 Mg Tab) 2 mg PO Q4H PRN PRN Reason: Pain scale 8-10 (Severe) Last Admin: 04/18/24 13:48 Dose: 2 mg Meropenem 500 mg/ Sodium (Chloride) 100 mls @ 200 mls/hr IV AFTER EACH DIALYSIS [facility] Last Admin: 04/15/24 05:07 Dose: 100 mls Vancomycin HCl 1 gm/ Sodium (Chloride) 250 mls @ 250 mls/hr IVPB Q7D [facility]; Protocol Insulin Human Regular (Insulin Regular (Human) 100 Unit/Ml) 0 unit SQ ACHS [facility]; Protocol Last Admin: 04/18/24 15:37 Dose: Not Given Lactobacillus Acidoph/Bulgaricus (Lactobacillus/Acidophilus Tab) 1 tab PO TID [facility] Last Admin: 04/18/24 14:00 Dose: 1 tab Lidocaine (Lidocaine 4% Patch) 1 patch TOP DAILY [facility] Last Admin: 04/18/24 09:00 Dose: 1 patch Midodrine (Midodrine Hcl 5 Mg Tablet) 5 mg PO TID [facility] Last Admin: 04/18/24 13:49 Dose: 5 mg Pantoprazole Sodium (Pantoprazole 40mg Tablet) 40 mg PO DAILYAC [facility]; Protocol Last Admin: 04/18/24 05:50 Dose: 40 mg Scopolamine HBr (Scopolamine Hydrobromide Patch) 1 pat TD Q3D@0900 [facility] Last Admin: 04/18/24 09:00 Dose: Not Given Sevelamer Carbonate (Sevelamer Carbonate 800 Mg Tablet) 2,400 mg PO TIDWM [facility] Last Admin: 04/18/24 16:18 Dose: 2,400 mg Sucralfate (Sucralfate 1 Gm Tablet) 1 gm PO ACHS PRN PRN Reason: INDIGESTION Last Admin: 04/14/24 21:06 Dose: 1 gm Microbiology Results 04/11/24 16:20 Wound - Abscess Gram Stain - Final 04/11/24 16:20 Wound - Abscess Anaerobic Culture - Final NO ANAEROBES GROWN. 04/11/24 03:48 Blood - Blood Aerobic Blood Culture - Final No growth in 5 days. 04/11/24 03:48 Blood - Blood Anaerobic Blood Culture - Final No growth in 5 days. 04/11/24 03:25 Blood - Blood Aerobic Blood Culture - Final No growth in 5 days. 04/11/24 03:25 Blood - Blood Anaerobic Blood Culture - Final No growth in 5 days. 04/11/24 16:20 Wound - Abscess Gram Stain - Final 04/11/24 16:20 Wound - Abscess Culture & Sensitivity - Final No growth. Assessment/ Plan: Nephrology No dyspnea No chest pain Severe right thigh pain No acute events overnight Vitals, medications, blood work and imaging reviewed in the chart Physical Examination General: Oriented x3, Cooperative HEENT: Atraumatic Neck: Supple Respiratory: Clear to auscultation bilaterally Cardiovascular: Regular rate/rhythm, Edema Gastrointestinal: Soft and benign, Non-distended Musculoskeletal: No clubbing, No contractures Integumentary: No rashes, No cyanosis, Tenderness/swelling Neurological: Normal speech Laboratory Data (last 24 hrs) 04/11/24 04/11/24 04/11/24 03:25 03:25 03:25 WBC 10.20 Hgb 9.1 L Hct 26.7 L Plt Count 357 PT 14.9 H INR 1.34 APTT 33.0 Sodium 126 L Potassium 4.5 BUN 56 H Creatinine 8.03 H Glucose 107 H Total Bilirubin 0.4 AST < 10 L ALT < 14 Alkaline Phosphatase 93 Imagings Data: EXAM DESCRIPTION: CT - Femur Right Wo Con - 04/11/2024 6:45 am CLINICAL HISTORY: Female, 48 years old, right thigh infection , extend ct to right thigh COMPARISON: 04/04/2024 TECHNIQUE: CT acquisition of the pelvis and right thigh without contrast. Coronal and sagittal reformatted images provided. This exam was performed according to departmental dose-optimization program which includes automated exposure control, adjustment of the mA and/or kV according to patient size, and/or use of iterative reconstruction technique. FINDINGS: Soft tissue characterization limited by lack of intravenous contrast. Exam is also limited by reformations only provided in bone algorithm, mild photon starvation, and portions of the posterolateral thigh outside of the field of view. Slight interval worsening in degree and extent of extensive subcutaneous soft tissue stranding throughout the right greater than left pelvis, in the right side. Asymmetric right thigh skin thickening is present. No evidence of fluid collection, deep fascial edema, or soft tissue gas. Intramuscular fat planes are preserved. Severe diffuse atherosclerosis. Small moderate volume of pelvic ascites, with partially imaged dialysis type catheter coiled in the left pelvis. No acute osseous finding, evidence of erosion or pathologic sclerosis. Mild degenerative changes of the lumbosacral spine, sacroiliac joints, hips and right knee. Small right knee joint effusion. IMPRESSION: 1. Slight interval worsening of diffuse edema and/or inflammatory stranding throughout the right pelvis and right thigh from prior CT, without appreciable fluid collection or soft tissue gas. 2. Pelvic ascites may be related to peritoneal dialysis. 3. Additional chronic and incidental findings above. 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
[2024-04-18] MEDS ORDERED: EPOETIN ALFA 10,000 UNIT/ML VIAL SQ SCH (20:00)
[2024-04-19 05:05] LABS: Absolute Basophils 0.1 K/uL (0-0.5); Absolute Eosinophils 0.4 K/uL (0-0.5); Absolute Monocytes 1.3 K/uL (0.1-1.3); Absolute Neutrophil 8.8 K/uL (1.8-8.0); Basophils % 0.9 % (0-1.3); Eosinophils % 3.5 % (0-4.4); Hemoglobin 8.1 g/dL (12.0-15.0); Lymphocytes % 8.7 % (15.3-44.8); MCH 30.5 pg (27.0-35.0); MCHC 32.6 g/dL (32.0-36.0); MCV 93.7 fL (80-100); MPV 8.1 fL (7.6-11.3); Monocytes % 11.2 % (3.3-12.3); Neutrophils % 75.7 % (41.7-73.7); Platelets 424 thou/uL (152-406); RBC Red Blood Cell Count 2.66 M/uL (3.86-4.86); Red Cell Distribution Width 16.1 % (12.1-15.2)
[2024-04-19 05:20] LABS: Anion Gap 9.8 mEq/L (5.0-15.0); Magnesium 1.7 mg/dL (1.6-2.4); Phosphorus 5.7 mg/dL (2.5-4.9); Potassium 3.8 mEq/L (3.5-5.1)
--- NOTE | 2024-04-19 07:45 | P.PN ---
Date of Service: 04/19/24 Subjective Continues with severe pain-difficulty controlling pain with medication, allergy to morphine is hallucinations wound VAC applied to right outer aspect today Surgery consulted for tunneled dialysis catheter and initiating HD soon ROS 10 point ROS as noted above, otherwise negative Physical Exam General: AAO x3, NAD, uncomfortable HEENT: Atraumatic, Normocephalic, PERRLA Neck: Supple, 2+ carotid pulse no bruit Respiratory: Nonlabored breathing, symmetrical chest wall movement, on room air Cardiovascular: Regular rate and rhythm, Normal S1 S2 present Capillary refill: <2 Seconds Gastrointestinal: Soft and benign on palpation, NT, distended (Obese), active bowel sounds Musculoskeletal: Erythema (right outer aspect of thigh), Tenderness (right outer ascept of thigh) Integumentary: Erythema (right outer ascept of thigh), Warmth (right outer ascept of thigh), Dressing CDI Neurological: Normal speech, Normal tone Vitals Reviewed Problem list Right lower extremity trauma/infection Prolonged QT/QTc Diabetes mellitusIDDM End-stage renal disease History HTN/HLD History of depression History of bilateral BKA History of hypothyroidism History of CHF History of CAD with coronary stents Assessment and Plan Right lower extremity trauma/infection Bilateral thigh cellulitis, calciphylaxis Diarrhea -CT pelvis w/o contrast, CT lower extremity: slight interval worsening of diffuse edema and/or inflammatory stranding throughout the right pelvis and right thigh from prior CT without appreciable fluid collection or soft tissue gas. -Supportive care -IV antibiotic given in ED -Pain control Dilaudid p.o. and dilaudid IV, she is refusing norco d/t upset stomach -Lidocaine patch -Follow blood cultures- NGTD -wound cultures-no WBC or organisms seen -Consult Dr. Alvarado Merrem 500 IV and Vanc IV for two weeks (end date 04/25) after each dialysis -Van trough 21.5, vanc per pharmacy -bedtadine to bilateral thigh cellulitis, right thigh add petroleum gauze with island dressing -Dr. Lopez- I and D 04/11, daily dressing changes with vashe damp to dry -Midline placed -Nephrology plans to initiate HD to help decrease edema to bilateral thigh Hypotensive-resolved Prolonged QT/QTc -QT/QTc 450/519 on repeat EKG 04/12 -Hold medications that prolongs QT -BP 145/78 -limiting pain medication administration -Midodrine started 04/16 Diabetes mellitusIDDM -Accu-Check with sliding scale insulin End-stage renal disease Hyponatremia Hypocalcemia Anemia -H/H stable- continue to monitor -Transfuse PRN -Continue monitoring sodium and calcium -Peritoneal dialysis with home equipment -Dr. Suh consulted -Vancomycin and meropenem after each dialysis, vanc managed per pharmacy History HTN/HLD History of depression History of bilateral BKA History of hypothyroidism History of CHF History of CAD with coronary stents -Continue home medications -Continuous telemetry DVT PPx SCD Full code LOS 2 days Discharge Plan: Inpatient rehab, when pain is controlled
[2024-04-19] MEDS: HYDROMORPHONE HCL 0.5 MG/0.5 ML INJ IV ONE ×2 (08:00→10:44)
[2024-04-19] MEDS: FUROSEMIDE 40 MG TABLET PO SCH (10:47)
[2024-04-19] MEDS ORDERED: VANCOMYCIN 1 GM in NA CHLORIDE 0.9% 250 ML IVPB SCH (14:00)
[2024-04-19] MEDS: MORPHINE 4 MG/ML SYR IV ONE (15:17)
[2024-04-19] MEDS: VANCOMYCIN 1 GM in NA CHLORIDE 0.9% 250 ML IVPB SCH (15:40)
--- NOTE | 2024-04-19 18:17 | P.PN ---
Date of Service: 04/19/24 Vital Signs Temp Pulse Resp BP Pulse Ox 98.8 F 84 16 160/70 H 98 04/19/24 16:00 04/19/24 18:10 04/19/24 17:49 04/19/24 18:10 04/19/24 17:49 Medications Hydrocodone Bitart/Acetaminophen (Hydrocodone/Apap 7.5/325 Mg Tab) 1 tab PO Q6H PRN PRN Reason: Pain scale 5-7 (Moderate) Last Admin: 04/17/24 12:31 Dose: 1 tab Docusate Sodium (Docusate Na 100 Mg Cap) 100 mg PO BID [facility] Last Admin: 04/19/24 10:45 Dose: Not Given Enteral Nutritional Formula (Nepro Shake 237 Ml Can) 237 ml PO TID [facility] Last Admin: 04/19/24 14:00 Dose: Not Given Epoetin Castro (Epoetin Castro 10,000 Unit/Ml Vial) 10,000 unit SQ MoWeFr@1700 [facility] Last Admin: 04/18/24 16:48 Dose: 10,000 unit Furosemide (Furosemide 40 Mg Tablet) 80 mg PO BIDL [facility] Last Admin: 04/19/24 18:10 Dose: 80 mg Hydromorphone HCl (Hydromorphone Oral 2 Mg Tab) 2 mg PO Q4H PRN PRN Reason: Pain scale 8-10 (Severe) Last Admin: 04/19/24 16:49 Dose: 2 mg Hydromorphone HCl (Hydromorphone Hcl 0.5 Mg/0.5 Ml Inj) 1 mg IV Q4H PRN PRN Reason: BREAKTHROUGH PAIN Meropenem 500 mg/ Sodium (Chloride) 100 mls @ 200 mls/hr IV AFTER EACH DIALYSIS [facility] Last Admin: 04/15/24 05:07 Dose: 100 mls Vancomycin HCl 1 gm/ Sodium (Chloride) 250 mls @ 250 mls/hr IVPB Q7D [facility]; Protocol Last Admin: 04/19/24 15:40 Dose: 250 mls Insulin Human Regular (Insulin Regular (Human) 100 Unit/Ml) 0 unit SQ ACHS [facility]; Protocol Last Admin: 04/19/24 16:30 Dose: Not Given Lactobacillus Acidoph/Bulgaricus (Lactobacillus/Acidophilus Tab) 1 tab PO TID [facility] Last Admin: 04/19/24 15:39 Dose: 1 tab Lidocaine (Lidocaine 4% Patch) 1 patch TOP DAILY [facility] Last Admin: 04/19/24 10:46 Dose: 1 patch Midodrine (Midodrine Hcl 5 Mg Tablet) 5 mg PO TID [facility] Last Admin: 04/19/24 15:41 Dose: 5 mg Pantoprazole Sodium (Pantoprazole 40mg Tablet) 40 mg PO DAILYAC [facility]; Protocol Last Admin: 04/19/24 06:17 Dose: 40 mg Scopolamine HBr (Scopolamine Hydrobromide Patch) 1 pat TD Q3D@0900 [facility] Last Admin: 04/18/24 09:00 Dose: Not Given Sevelamer Carbonate (Sevelamer Carbonate 800 Mg Tablet) 2,400 mg PO TIDWM [facility] Last Admin: 04/19/24 18:10 Dose: 2,400 mg Sucralfate (Sucralfate 1 Gm Tablet) 1 gm PO ACHS PRN PRN Reason: INDIGESTION Last Admin: 04/14/24 21:06 Dose: 1 gm Microbiology Results 04/11/24 16:20 Wound - Abscess Gram Stain - Final 04/11/24 16:20 Wound - Abscess Anaerobic Culture - Final NO ANAEROBES GROWN. 04/11/24 03:48 Blood - Blood Aerobic Blood Culture - Final No growth in 5 days. 04/11/24 03:48 Blood - Blood Anaerobic Blood Culture - Final No growth in 5 days. 04/11/24 03:25 Blood - Blood Aerobic Blood Culture - Final No growth in 5 days. 04/11/24 03:25 Blood - Blood Anaerobic Blood Culture - Final No growth in 5 days. 04/11/24 16:20 Wound - Abscess Gram Stain - Final 04/11/24 16:20 Wound - Abscess Culture & Sensitivity - Final No growth. Assessment/ Plan: Nephrology No dyspnea No chest pain Severe right thigh pain No acute events overnight Vitals, medications, blood work and imaging reviewed in the chart Physical Examination General: Oriented x3, Cooperative HEENT: Atraumatic Neck: Supple Respiratory: Clear to auscultation bilaterally Cardiovascular: Regular rate/rhythm, Edema Gastrointestinal: Soft and benign, Non-distended Musculoskeletal: No clubbing, No contractures Integumentary: No rashes, No cyanosis, Tenderness/swelling Neurological: Normal speech Laboratory Data (last 24 hrs) 04/11/24 04/11/2424 03:25 03:25 03:25 WBC 10.20 Hgb 9.1 L Hct 26.7 L Plt Count 357 PT 14.9 H INR 1.34 APTT 33.0 Sodium 126 L Potassium 4.5 BUN 56 H Creatinine 8.03 H Glucose 107 H Total Bilirubin 0.4 AST < 10 L ALT < 14 Alkaline Phosphatase 93 Imagings Data: EXAM DESCRIPTION: CT - Femur Right Wo Con - 04/11/2024 6:45 am CLINICAL HISTORY: Female, 48 years old, right thigh infection , extend ct to right thigh COMPARISON: 04/04/2024 TECHNIQUE: CT acquisition of the pelvis and right thigh without contrast. Coronal and sagittal reformatted images provided. This exam was performed according to departmental dose-optimization program which includes automated exposure control, adjustment of the mA and/or kV according to patient size, and/or use of iterative reconstruction technique. FINDINGS: Soft tissue characterization limited by lack of intravenous contrast. Exam is also limited by reformations only provided in bone algorithm, mild photon starvation, and portions of the posterolateral thigh outside of the field of view. Slight interval worsening in degree and extent of extensive subcutaneous soft tissue stranding throughout the right greater than left pelvis, in the right side. Asymmetric right thigh skin thickening is present. No evidence of fluid collection, deep fascial edema, or soft tissue gas. Intramuscular fat planes are preserved. Severe diffuse atherosclerosis. Small moderate volume of pelvic ascites, with partially imaged dialysis type catheter coiled in the left pelvis. No acute osseous finding, evidence of erosion or pathologic sclerosis. Mild degenerative changes of the lumbosacral spine, sacroiliac joints, hips and right knee. Small right knee joint effusion. IMPRESSION: 1. Slight interval worsening of diffuse edema and/or inflammatory stranding throughout the right pelvis and right thigh from prior CT, without appreciable fluid collection or soft tissue gas. 2. Pelvic ascites may be related to peritoneal dialysis. 3. Additional chronic and incidental findings above. 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 Rosa and Dr. Lopez
[2024-04-19] MEDS: HYDROMORPHONE HCL 0.5 MG/0.5 ML INJ IV PRN (19:42)
[2024-04-20 05:49] LABS: Absolute Basophils 0.1 K/uL (0-0.5); Absolute Eosinophils 0.5 K/uL (0-0.5); Absolute Lymphocytes (CBC) 1.2 K/uL (0.7-4.9); Absolute Monocytes 1.2 K/uL (0.1-1.3); Absolute Neutrophil 8.8 K/uL (1.8-8.0); Eosinophils % 4.1 % (0-4.4); Hemoglobin 7.9 g/dL (12.0-15.0); Lymphocytes % 10.3 % (15.3-44.8); MCH 29.9 pg (27.0-35.0); MCHC 31.7 g/dL (32.0-36.0); MCV 94.4 fL (80-100); MPV 7.9 fL (7.6-11.3); Monocytes % 9.9 % (3.3-12.3); Neutrophils % 74.7 % (41.7-73.7); Platelets 432 thou/uL (152-406); RBC Red Blood Cell Count 2.65 M/uL (3.86-4.86); Red Cell Distribution Width 16.1 % (12.1-15.2)
[2024-04-20 06:17] LABS: Anion Gap 12.1 mEq/L (5.0-15.0); Magnesium 1.6 mg/dL (1.6-2.4); Phosphorus 5.5 mg/dL (2.5-4.9); Potassium 4.1 mEq/L (3.5-5.1)
--- NOTE | 2024-04-20 08:38 | P.PN ---
Date of Service: 04/20/24 Subjective Continues to have intractable pain to right lateral thigh Wound Vac in place Plan for HD cath insertion for improved volume management ROS 10 point ROS as noted above, otherwise negative Physical Exam General: AAO x3, NAD, uncomfortable HEENT: Atraumatic, Normocephalic, PERRLA Neck: Supple, 2+ carotid pulse no bruit Respiratory: Nonlabored breathing, symmetrical chest wall movement, on room air Cardiovascular: Regular rate and rhythm, Normal S1 S2 present Capillary refill: <2 Seconds Gastrointestinal: Soft and benign on palpation, NT, distended (Obese), active bowel sounds Musculoskeletal: Erythema (right outer aspect of thigh), Tenderness (right outer ascept of thigh) Integumentary: Erythema (right outer ascept of thigh), Warmth (right outer ascept of thigh), Dressing CDI Neurological: Normal speech, Normal tone Vitals Reviewed Problem list Right lower extremity trauma/infection Prolonged QT/QTc Diabetes mellitusIDDM End-stage renal disease History HTN/HLD History of depression History of bilateral BKA History of hypothyroidism History of CHF History of CAD with coronary stents Plan Right lower extremity trauma/infection Bilateral thigh cellulitis, calciphylaxis Diarrhea -CT pelvis w/o contrast, CT lower extremity: slight interval worsening of diffuse edema and/or inflammatory stranding throughout the right pelvis and right thigh from prior CT without appreciable fluid collection or soft tissue gas. -Supportive care -IV antibiotic given in ED -Pain control Dilaudid p.o. and dilaudid IV -Lidocaine patch -blood cultures- NGTD -wound cultures-no WBC or organisms seen -Consult Dr. Alvarado Merrem 500 IV and Vanc IV for two weeks (end date 04/25) after each dialysis -vanc dosing per pharmacy -bedtadine to bilateral thigh cellulitis, right thigh add petroleum gauze with island dressing -Dr. Lopez- I and D 04/11, daily dressing changes with vashe damp to dry -Midline placed -Nephrology plans to initiate HD to help decrease edema to bilateral thigh -Awaiting HD cath placement with general surgery to initiate HD Hypotensive-resolved Prolonged QT/QTc -QT/QTc 450/519 on repeat EKG 04/12 -Hold medications that prolongs QT -Midodrine started 04/16 Diabetes mellitusIDDM -Accu-Check with sliding scale insulin End-stage renal disease Hyponatremia Hypocalcemia Anemia -H/H stable- continue to monitor -Transfuse PRN -Continue monitoring sodium and calcium -Peritoneal dialysis with home equipment, likely to initiate HD inpatient -Nephrology following -Vancomycin and meropenem after each dialysis, vanc managed per pharmacy History HTN/HLD History of depression History of bilateral BKA History of hypothyroidism History of CHF History of CAD with coronary stents -Continue home medications -Continuous telemetry DVT PPx SCD Full code LOS 2 days Discharge Plan: Inpatient rehab, when pain is controlled
--- NOTE | 2024-04-20 10:28 | P.PN ---
(S) Not much change in condition since last seen Sun. Pt still having sig pain over the Rt posterolateral thigh, wound area, some skin denudation, wound vac applied yesterday. Plan for temp iHD discussed yesterday and today and pt provides consent for temp HD catheter placement and HD which she has been on prv Vitals reviewed in the EMR General: Oriented x3, Cooperative HEENT: Atraumatic, sclera anicteric, not needing O2 Neck: Supple Respiratory: Normal air movement, no rales or wheezes Cardiovascular: Regular rate/rhythm mostly Gastrointestinal: Soft and benign, obese, PD catheter present, some crusting, no drainage at exit site Musculoskeletal: b/l amputations Integumentary: Some SC edema, induration and mild erythema over Rt lateral thigh, some TTP persists, dressing over site of I/D Neurological: Normal speech, alert, non focal Laboratory data: Reviewed in the EMR Imagings Data: Conclusions/Impression: ESRD on PD -Plan to temp transition to iHD for greater metab clearance to clear phos and UF to help mobilize some of the 3rd space edema. HD ordered for today and tmrw Hyperphosphatemia -Increased phos binders dose, level improving Systolic Diastolic CHF, chronic. 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 Recheck level tmrw now that she will be on HD with greatr clearance -Ok to cont IV Abx via Rt UE mid or picc line for a specified duration per ID -s/p sodium thiosulfate dose(s), additional doses not given this week as pharmacy did not have in stock and were moving towards discharge planning
[2024-04-20] MEDS: ALBUMIN HUMAN 25% 100 ML IV SCH (11:00)
[2024-04-20] MEDS: NA CHLORIDE 0.9% 500 ML ONE (12:25)
[2024-04-20] MEDS: DEXTROSE ORAL 40% 15 GM TUBE PO ONE (12:45)
[2024-04-20] MEDS: NA CHLORIDE 0.9% 50 ML ONE (12:52)
[2024-04-20] MEDS ORDERED: propofoL 200 MG/20 ML VIAL IV ONE ×2 (13:39→14:43)
[2024-04-20] MEDS ORDERED: ONDANSETRON 4 MG/2 ML VIAL ONE (13:39)
[2024-04-20] MEDS ORDERED: MIDAZOLAM HCL 2 MG/2 ML INJ ONE ×2 (13:39→14:44)
[2024-04-20] MEDS ORDERED: FENTANYL CITR 100 MCG/2 ML ONE ×2 (13:39→14:43)
[2024-04-20] MEDS ORDERED: LIDOCAINE 1% MPF 5 ML VIAL ONE ×2 (13:39→14:43)
[2024-04-20] MEDS: HYDROMORPHONE HCL 1 MG/ML INJ ONE (14:20)
[2024-04-20] MEDS: LIDOCAINE HCL/EPINEPHRINE 20 ML MDV ONE (15:20)
[2024-04-20] MEDS: HEPARIN 5000 UNIT/ML 1 ML VIAL ONE (15:33)
--- NOTE | 2024-04-20 15:48 | P.OP ---
Preoperative diagnosis: Dependence on Renal Dialysis Postoperative diagnosis: Dependence on Renal Dialysis Primary procedure: Placement of Tunneled LEFT internal jugular hemodialysis catheter Secondary procedure: Ultrasound, Flouroscopy with interpretation utilized Anesthesia: GETA + Local Estimated blood loss: <10cc Specimen: None Findings: Cath @ SVC, RIGHT IJ diminutive Complications: None Implants: 24cm Hemosplit HD catehter Transferred to: Recovery Room Condition: Good
--- NOTE | 2024-04-20 16:27 | RAD REPORT ---
EXAM DESCRIPTION: RAD - Chest Single View - 04/20/2024 4:21 pm CLINICAL HISTORY: HD catheter placement COMPARISON: Chest Single View dated 01/15/2024; Chest Single View dated 01/08/2024; Abdomen 1 View (KUB ) dated 08/04/2023; Chest Single View dated 02/26/2022 FINDINGS: Lines: Left IJ approach dialysis catheter placement with distal tip at the right atrium. Lungs: Pulmonary edema. Pleural: Left pleural effusion likely. Cardiac: Cardiomegaly. Mediastinum: Within normal limits. Bones: No acute fractures. Other: None IMPRESSION: Left IJ approach dialysis catheter with distal tip at the right atrium. Pulmonary edema. No pneumothorax.
--- NOTE | 2024-04-20 18:46 | RAD REPORT ---
EXAM DESCRIPTION: RAD - Fluoroscopy <1 Hour - 04/20/2024 3:58 pm CLINICAL HISTORY: HD CATH PLACEMENT COMPARISON: MRI FOOT, LEFT W/WO CONTRAST dated 06/11/2009 FINDINGS/IMPRESSION: Seven intraoperative fluoroscopic images submitted. This demonstrates placement of a left IJ approach dialysis catheter. Fluoro time: 0.1 minutes Cumulative dose: 4.16 mGy
--- NOTE | 2024-04-20 20:39 | OP ---
Date of Procedure: 04/20/2024 Surgeon: Ashish Lopez MD, Preoperative Diagnosis: Dependent on renal dialysis. Postoperative Diagnosis: Dependent on renal dialysis. Procedure Performed: Placement of tunneled left internal jugular hemodialysis catheter using ultraso und and fluoroscopic guidance with interpretation utilized. Anesthesia: General endotracheal plus local with 0.25% Marcaine. Estimated Blood Loss: Less than 10 cc. Specimens: None. Findings: Catheter at the SVC confluence and the right internal jugular vein appeared diminutive and possibly partially occluded. Complications: None. Implants: 24 cm HemoSplit hemodialysis catheter. Disposition: Patient transferred to recovery room in good condition. Procedure In Detail: After informed consent was obtained, patient was brought to the operating room, prepped and draped in the usual sterile fashion. After adequate anesthesia was achieved, an ultraso und of both sides of the neck and starting with the right internal jugular, which appeared to be smal l, diminutive, not amenable to placement of a catheter due to its diminutive size, possibly due to ob structive process, but impossible to discern at this point. Therefore, I looked at the left internal jugular vein which was found to be quite adequate, at this point. After this, patient remained in s teep Trendelenburg, which she remained throughout the procedure. At this point, using a microintrodu cer set, I cannulated the left internal jugular vein under ultrasound guidance on the first attempt w ithout incident or complication. Micro wire was advanced, at this point. Fluoroscopic guidance conf irmed the confluence of the SVC. At this point, I then placed the neck incision overlying the wire a t the internal jugular site and placed a micro introducer sheath, removed the micro wire and placed a standard wire at this point. Fluoroscopic guidance once again confirmed the position of the wire in the right atrium, at this point. I then backed the wire out, at this point, and the wire remained i n place. I then found appropriate location on the chest wall and placed it after appropriately anest hetizing the skin. I tunneled the catheter through this, bringing out through the internal jugular i nsertion site. At this point, I oriented the catheter and performed sequential dilatation using Seld aubree technique ultimately placing introducer sheath without incident or complication. The fluorosco pic guidance was used throughout to help confirm the position of the catheter. At this point, the ca theter was introduced at the introducer sheath and the introducer sheath was removed, at this point, and good hemostasis was achieved throughout. I then pulled back dark red nonpulsatile blood througho ut the procedure including 2 ports, at this point. I then flushed her with saline until completely c lear and then packed her with heparin super flush, at this point. I then placed caps on, at this poi nt. The patient remained in steep Trendelenburg position. I confirmed position of the catheter one last time with x-ray. I then secured the insertion site after cleansing it appropriately using a sin gle and interrupted 3-0 nylon suture and secured the catheter to the chest with the same set interrup ashish 3-0 nylon suture and a sterile dressing was placed over top. The patient tolerated the procedure without incident or complication, transferred to PACU in good condition. All counts were correct at the end of the case. JOANAN/CHECO Voice ID: [id number] Report ID: [id number]
[2024-04-21 05:47] LABS: Absolute Basophils 0.1 K/uL (0-0.5); Absolute Eosinophils 0.4 K/uL (0-0.5); Absolute Lymphocytes (CBC) 1.1 K/uL (0.7-4.9); Absolute Monocytes 1.2 K/uL (0.1-1.3); Absolute Neutrophil 9.7 K/uL (1.8-8.0); Basophils % 0.9 % (0-1.3); Eosinophils % 3.1 % (0-4.4); Hematocrit 23.6 % (36.0-45.0); Lymphocytes % 8.6 % (15.3-44.8); MCH 31.6 pg (27.0-35.0); MCHC 33.8 g/dL (32.0-36.0); MCV 93.5 fL (80-100); MPV 7.7 fL (7.6-11.3); Monocytes % 9.7 % (3.3-12.3); Neutrophils % 77.7 % (41.7-73.7); Nucleated Red Blood Cells % 0.1 % (0-0); Platelets 458 thou/uL (152-406); RBC Red Blood Cell Count 2.52 M/uL (3.86-4.86); Red Cell Distribution Width 16.2 % (12.1-15.2)
[2024-04-21 06:04] LABS: Anion Gap 15.7 mEq/L (5.0-15.0); Magnesium 1.9 mg/dL (1.6-2.4); Phosphorus 6.4 mg/dL (2.5-4.9); Potassium 4.7 mEq/L (3.5-5.1)
--- NOTE | 2024-04-21 09:55 | P.PN ---
Date of Service: 04/21/24 Subjective HD cath in place Pain better controlled today No acute events overnight ROS 10 point ROS as noted above, otherwise negative Physical Exam General: AAO x3, NAD, uncomfortable HEENT: Atraumatic, Normocephalic, PERRLA Neck: Supple, 2+ carotid pulse no bruit Respiratory: Nonlabored breathing, symmetrical chest wall movement, on room air Cardiovascular: Regular rate and rhythm, Normal S1 S2 present Capillary refill: <2 Seconds Gastrointestinal: Soft and benign on palpation, NT, distended (Obese), active bowel sounds Musculoskeletal: Erythema (right outer aspect of thigh), Tenderness (right outer ascept of thigh) Integumentary: Erythema (right outer ascept of thigh), Warmth (right outer ascept of thigh), Dressing CDI Neurological: Normal speech, Normal tone Vitals Reviewed Problem list Right lower extremity trauma/infection Prolonged QT/QTc Diabetes mellitusIDDM End-stage renal disease History HTN/HLD History of depression History of bilateral BKA History of hypothyroidism History of CHF History of CAD with coronary stents Plan Right lower extremity trauma/infection Bilateral thigh cellulitis, calciphylaxis Diarrhea -Pain control Dilaudid p.o. and dilaudid IV -blood cultures- NGTD -wound cultures-no WBC or organisms seen -Consult Dr. Alvarado Merrem 500 IV and Vanc IV for two weeks (end date 04/25) after each dialysis -vanc dosing per pharmacy -bedtadine to bilateral thigh cellulitis, right thigh add petroleum gauze with island dressing -Dr. Lopez- I and D 04/11, daily dressing changes with vashe damp to dry -Midline placed -Nephrology plans to initiate HD to help decrease edema to bilateral thigh -HD cath placed evening 04/20, plan for HD today Hypotensive-resolved Prolonged QT/QTc -QT/QTc 450/519 on repeat EKG 04/12 -Hold medications that prolongs QT -Midodrine started 04/16 Diabetes mellitusIDDM -Accu-Check with sliding scale insulin End-stage renal disease Hyponatremia Hypocalcemia Anemia -H/H stable- continue to monitor -Transfuse PRN -Continue monitoring sodium and calcium -Peritoneal dialysis with home equipment, likely to initiate HD inpatient -Nephrology following -Vancomycin and meropenem after each dialysis, vanc managed per pharmacy History HTN/HLD History of depression History of bilateral BKA History of hypothyroidism History of CHF History of CAD with coronary stents -Continue home medications -Continuous telemetry DVT PPx SCD Full code LOS 2 days Discharge Plan: Inpatient rehab, when pain is controlled <Juan Da Silva - Last Filed: 04/21/24 09:54> Patient seen and examined. Plan of care discussed with Juan Da Silva. Patient states had thigh pain is much better today and she is able to lift her thighs up without much pain. Blood pressure readings are better today. 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 Patient is planned for inpatient rehab placement. <humberto hardin - Last Filed: 04/21/24 16:33>
--- NOTE | 2024-04-21 16:50 | PN ---
Date of Progress Note: 04/21/2024 Subjective: The patient is seen in her room at [facility]. The patient is alert, awake, able to answer questions. Denies any headache, nausea, vomiting. Objective: Vital Signs: Stable. Blood pressure last was 120/59, pulse is about 70 and regular, res pirations are 14 and comfortable. She is afebrile, O2 sats are 98% on room air. Lungs: Clear to auscultation. Abdomen: Soft. Lungs: The patient denies any shortness of breath. Her lungs are clear to auscultation bilaterally. Laboratory Data: Reviewed. Medications: Reviewed. Assessment And Plan: The patient with end-stage renal disease, had been on peritoneal dialysis, has been now transition to hemodialysis, awaiting dialysis treatment today. Dialysis nurse is in the [facility]. Discussed with dialysis nurse. Patient's orders are there and the patient is going to be getting dialysis treatment today. Continue to monitor electrolytes and likely next dialysis treatment on . /CHECO Voice ID: [id number] Report ID: [id number]
[2024-04-21] MEDS ORDERED: VANCOMYCIN 1 GM in NA CHLORIDE 0.9% 250 ML IVPB SCH (18:00)
[2024-04-21] MEDS: PROMETHAZINE INJ 25 MG/ML AMP IV PRN (23:28)
[2024-04-22] MEDS: VANCOMYCIN 1 GM/VIAL ONE (06:07)
[2024-04-22 09:26] LABS: Absolute Basophils 0.1 K/uL (0-0.5); Absolute Eosinophils 0.4 K/uL (0-0.5); Absolute Lymphocytes (CBC) 1.2 K/uL (0.7-4.9); Absolute Monocytes 1.2 K/uL (0.1-1.3); Absolute Neutrophil 6.9 K/uL (1.8-8.0); Basophils % 1.2 % (0-1.3); Eosinophils % 3.8 % (0-4.4); Hematocrit 23.3 % (36.0-45.0); Hemoglobin 7.4 g/dL (12.0-15.0); Lymphocytes % 11.9 % (15.3-44.8); MCH 30.5 pg (27.0-35.0); MCHC 31.9 g/dL (32.0-36.0); MCV 95.5 fL (80-100); MPV 8.3 fL (7.6-11.3); Neutrophils % 71.1 % (41.7-73.7); Platelets 412 thou/uL (152-406); RBC Red Blood Cell Count 2.44 M/uL (3.86-4.86); Red Cell Distribution Width 16.5 % (12.1-15.2)
--- NOTE | 2024-04-22 09:30 | P.PN ---
Date of Service: 04/22/24 Subjective HD cath in place Pain better controlled today No acute events overnight Had HD yesterday ROS 10 point ROS as noted above, otherwise negative Physical Exam General: AAO x3, NAD, uncomfortable HEENT: Atraumatic, Normocephalic, PERRLA Neck: Supple, 2+ carotid pulse no bruit Respiratory: Nonlabored breathing, symmetrical chest wall movement, on room air Cardiovascular: Regular rate and rhythm, Normal S1 S2 present Capillary refill: <2 Seconds Gastrointestinal: Soft and benign on palpation, NT, distended (Obese), active bowel sounds Musculoskeletal: Erythema (right outer aspect of thigh), Tenderness (right outer ascept of thigh) Integumentary: Erythema (right outer ascept of thigh), Warmth (right outer ascept of thigh), Dressing CDI Neurological: Normal speech, Normal tone Vitals Reviewed Problem list Right lower extremity trauma/infection Prolonged QT/QTc Diabetes mellitusIDDM End-stage renal disease History HTN/HLD History of depression History of bilateral BKA History of hypothyroidism History of CHF History of CAD with coronary stents Plan Right lower extremity trauma/infection Bilateral thigh cellulitis, calciphylaxis Diarrhea -Pain control Dilaudid p.o. and dilaudid IV -blood cultures- NGTD -wound cultures-no WBC or organisms seen -Consult Dr. Alvarado Merrem 500 IV and Vanc IV for two weeks (end date 04/25) after each dialysis -vanc dosing per pharmacy -bedtadine to bilateral thigh cellulitis, right thigh add petroleum gauze with island dressing -Dr. Lopez- I and D 04/11, daily dressing changes with vashe damp to dry -Midline placed -Nephrology plans to initiate HD to help decrease edema to bilateral thigh -HD cath placed evening 04/20 -Continue with HD as ordered by nephrology Hypotensive-resolved Prolonged QT/QTc -QT/QTc 450/519 on repeat EKG 04/12 -Hold medications that prolongs QT -Midodrine started 04/16 Diabetes mellitusIDDM -Accu-Check with sliding scale insulin End-stage renal disease Hyponatremia Hypocalcemia Anemia -H/H stable- continue to monitor -Transfuse PRN -Continue monitoring sodium and calcium -Peritoneal dialysis with home equipment, likely to initiate HD inpatient -Nephrology following -Vancomycin and meropenem after each dialysis, vanc managed per pharmacy History HTN/HLD History of depression History of bilateral BKA History of hypothyroidism History of CHF History of CAD with coronary stents -Continue home medications -Continuous telemetry DVT PPx SCD Full code LOS 2 days Discharge Plan: Inpatient rehab, when pain is controlled
[2024-04-22 09:55] LABS: Phosphorus 4.8 mg/dL (2.5-4.9)
[2024-04-22] MEDS: NA CHLORIDE 0.9% 250 ML IV SCH (12:00)
--- NOTE | 2024-04-22 14:33 | PN ---
Date of Progress Note: 04/22/2024 Subjective: Patient is alert, awake, and comfortable. States she feels better compared to yesterday . Tolerated dialysis well. Denies any headache, nausea, or vomiting. Patient's breathing is somewh at stable. She does feel weak and tired. Objective: Vital Signs: On evaluation of her vitals, patient's vitals are relatively stable. Blood pressure slightly on the lower side, last one was 103/51, pulse is 65 and regular, respirations arou nd 12, and patient is afebrile. Lungs: Clear to auscultation. Abdomen: Soft. Extremities: Revealed no edema. Laboratory Data: Reviewed. Her WBC is 9.7, hemoglobin is low at 7.4, hematocrit 23.3, platelet coun t of 412. Sodium 134, potassium 4.0, chloride 99, bicarb is 29, BUN is 34, creatinine 6.98. Medications: Reviewed. Assessment And Plan: The patient with end-stage renal disease, had dialysis yesterday, tolerated it well. Denies any headache, nausea, vomiting. Clinically, looks relatively stable, but hemoglobin is on the lower side and despite SENDY, patient has not improved significantly. Would benefit likely fro m a unit of blood. Discussed with Dr. Rosa to see if he would also agree and then patient would be transfused with a unit of blood if her hemoglobin stays below 7.5. Discharge planning as per the Pr imary team. The patient will likely need placement and continuation of dialysis with hemodialysis outpatient and then assessment of possibility of future transition back to PD if that is even feasibl e at that time. /CHECO Voice ID: [id number] Report ID: [id number]
[2024-04-22] MEDS: GABAPENTIN 100 MG CAP PO SCH (19:55)
[2024-04-22] MEDS: HEPARIN 5000 UNIT/ML 1 ML VIAL SQ SCH (20:01)
[2024-04-23 04:35] LABS: Hepatitis B Core IgM Nonreactive (Nonreactive); Hepatitis B Surface Ab - Quant < 3.10 mIU/mL (<8.0); Hepatitis B surface AG Interp. Nonreactive (Nonreactive)
[2024-04-23 04:36] LABS: HBsAG Nonreactive Report Report
[2024-04-23 06:11] LABS: Hematocrit 26.5 % (36.0-45.0); Hemoglobin 8.9 g/dL (12.0-15.0); MCH 31.3 pg (27.0-35.0); MCHC 33.7 g/dL (32.0-36.0); MCV 92.9 fL (80-100); MPV 7.6 fL (7.6-11.3); Platelets 428 thou/uL (152-406); RBC Red Blood Cell Count 2.85 M/uL (3.86-4.86); Red Cell Distribution Width 16.7 % (12.1-15.2)
[2024-04-23 06:28] LABS: Anion Gap 10.1 mEq/L (5.0-15.0); Potassium 4.1 mEq/L (3.5-5.1)
[2024-04-23] MEDS: HYDROMORPHONE ORAL 2 MG TAB PO PRN (08:44)
--- NOTE | 2024-04-23 09:08 | P.PN ---
Date of Service: 04/23/24 Subjective HD cath in place Pain better controlled today No acute events overnight Had HD yesterday again ROS 10 point ROS as noted above, otherwise negative Physical Exam General: AAO x3, NAD, uncomfortable HEENT: Atraumatic, Normocephalic, PERRLA Neck: Supple, 2+ carotid pulse no bruit Respiratory: Nonlabored breathing, symmetrical chest wall movement, on room air Cardiovascular: Regular rate and rhythm, Normal S1 S2 present Capillary refill: <2 Seconds Gastrointestinal: Soft and benign on palpation, NT, distended (Obese), active bowel sounds Musculoskeletal: Erythema (right outer aspect of thigh), Tenderness (right outer ascept of thigh) Integumentary: Erythema (right outer ascept of thigh), Warmth (right outer ascept of thigh), Dressing CDI Neurological: Normal speech, Normal tone Vitals Reviewed Problem list Right lower extremity trauma/infection Prolonged QT/QTc Diabetes mellitusIDDM End-stage renal disease anemia of chronic disease History HTN/HLD History of depression History of bilateral BKA History of hypothyroidism History of CHF History of CAD with coronary stents Plan Right lower extremity trauma/infection Bilateral thigh cellulitis, calciphylaxis Diarrhea -Pain control Dilaudid p.o. and dilaudid IV -blood cultures- NGTD -wound cultures-no WBC or organisms seen -Consult Dr. Alvarado Merrem 500 IV and Vanc IV for two weeks (end date 04/25) after each dialysis -vanc dosing per pharmacy -bedtadine to bilateral thigh cellulitis, right thigh add petroleum gauze with island dressing -Dr. Lopez- I and D 04/11, daily dressing changes with vashe damp to dry -Midline placed -HD cath placed evening 04/20 -Continue with HD as ordered by nephrology -Still having difficulty placing prosthetics significantly limiting her mobility Hypotensive-resolved Prolonged QT/QTc -QT/QTc 450/519 on repeat EKG 04/12 -Hold medications that prolongs QT -Midodrine started 04/16 Anemia of chronic disease received 1 unit PRBC 04/22 Diabetes mellitusIDDM -Accu-Check with sliding scale insulin End-stage renal disease Hyponatremia Hypocalcemia Anemia -H/H stable- continue to monitor -Transfuse PRN -Continue monitoring sodium and calcium -Peritoneal dialysis with home equipment, likely to initiate HD inpatient -Nephrology following -Vancomycin and meropenem after each dialysis, vanc managed per pharmacy History HTN/HLD History of depression History of bilateral BKA History of hypothyroidism History of CHF History of CAD with coronary stents -Continue home medications -Continuous telemetry DVT PPx SCD Full code LOS 1-2 days Discharge Plan: Inpatient rehab
--- NOTE | 2024-04-23 16:50 | EKG ---
Test Date: 2024-04-12 Test Time: 16:16:42 [employer]: VH MEASUREMENT RESULTS: Intervals: Rate: 80 WI: 156 QRSD: 114 QT: 450 QTc: 519 Chandler: P: 31 WI: 156 QRS: 16 T: -25 INTERPRETIVE STATEMENTS: Normal sinus rhythm Septal infarct, age undetermined Prolonged QT Abnormal ECG Compared to ECG 04/12/2024 16:15:32 No significant changes Electronically Signed On 04-23-24 16:38:21 CDT by Angel Montelongo
[2024-04-23] MEDS: HYDROMORPHONE HCL 0.5 MG/0.5 ML INJ IV PRN (19:37)
--- NOTE | 2024-04-23 22:22 | P.PN ---
Date of Service: 04/23/24 Vital Signs Temp Pulse Resp BP Pulse Ox 97.1 F 70 16 111/52 L 100 04/23/24 16:00 04/23/24 16:00 04/23/24 19:37 04/23/24 16:00 04/23/24 19:37 Medications Docusate Sodium (Docusate Na 100 Mg Cap) 100 mg PO BID [facility] Last Admin: 04/23/24 21:00 Dose: Not Given Enteral Nutritional Formula (Nepro Shake 237 Ml Can) 237 ml PO TID [facility] Last Admin: 04/23/24 21:00 Dose: Not Given Epoetin Castro (Epoetin Castro 10,000 Unit/Ml Vial) 10,000 unit SQ MoWeFr@1700 [facility] Last Admin: 04/23/24 16:47 Dose: 10,000 unit Furosemide (Furosemide 40 Mg Tablet) 80 mg PO BIDL [facility] Last Admin: 04/23/24 16:43 Dose: 80 mg Gabapentin (Gabapentin 100 Mg Cap) 100 mg PO TID [facility] Last Admin: 04/23/24 21:11 Dose: 100 mg Heparin Sodium (Porcine) (Heparin 1,000 Unit/Ml Vial) 6,000 unit IV EVERY HD PRN PRN Reason: FOR DIALYSIS CATHETER CARE Last Admin: 04/21/24 17:48 Dose: 6,000 unit Heparin Sodium (Porcine) (Heparin 5000 Unit/Ml 1 Ml Vial) 5,000 unit SQ Q12HR [facility] Last Admin: 04/23/24 21:11 Dose: 5,000 unit Hydromorphone HCl (Hydromorphone Oral 2 Mg Tab) 4 mg PO Q4H PRN PRN Reason: Pain scale 8-10 (Severe) Last Admin: 04/23/24 21:15 Dose: 4 mg Hydromorphone HCl (Hydromorphone Hcl 0.5 Mg/0.5 Ml Inj) 1 mg IV Q6H PRN PRN Reason: BREAKTHROUGH PAIN Last Admin: 04/23/24 19:37 Dose: 1 mg Meropenem 500 mg/ Sodium (Chloride) 100 mls @ 200 mls/hr IV AFTER EACH DIALYSIS [facility] Last Admin: 04/21/24 21:34 Dose: 100 mls Vancomycin HCl 1 gm/ Sodium (Chloride) 250 mls @ 250 mls/hr IVPB AFTER EACH DIALYSIS [facility]; Protocol Sodium Chloride (Sodium Chloride) 250 mls @ 30 mls/hr IV .Q8H20M [facility] Insulin Human Regular (Insulin Regular (Human) 100 Unit/Ml) 0 unit SQ ACHS [facility]; Protocol Last Admin: 04/23/24 21:00 Dose: Not Given Lactobacillus Acidoph/Bulgaricus (Lactobacillus/Acidophilus Tab) 1 tab PO TID [facility] Last Admin: 04/23/24 21:11 Dose: 1 tab Lidocaine (Lidocaine 4% Patch) 1 patch TOP DAILY [facility] Last Admin: 04/23/24 10:21 Dose: 1 patch Midodrine (Midodrine Hcl 5 Mg Tablet) 5 mg PO TID [facility] Last Admin: 04/23/24 21:11 Dose: 5 mg Pantoprazole Sodium (Pantoprazole 40mg Tablet) [facility]; Protocol Last Admin: 04/23/24 05:50 Dose: 40 mg Scopolamine HBr (Scopolamine Hydrobromide Patch) 1 pat TD Q3D@0900 [facility] Last Admin: 04/18/24 09:00 Dose: Not Given Sevelamer Carbonate (Sevelamer Carbonate 800 Mg Tablet) 2,400 mg PO TIDWM [facility] Last Admin: 04/23/24 16:44 Dose: 2,400 mg Sucralfate (Sucralfate 1 Gm Tablet) 1 gm PO ACHS PRN PRN Reason: INDIGESTION Last Admin: 04/21/24 10:15 Dose: 1 gm Microbiology Results 04/11/24 16:20 Wound - Abscess Gram Stain - Final 04/11/24 16:20 Wound - Abscess Anaerobic Culture - Final NO ANAEROBES GROWN. 04/11/24 03:48 Blood - Blood Aerobic Blood Culture - Final No growth in 5 days. 04/11/24 03:48 Blood - Blood Anaerobic Blood Culture - Final No growth in 5 days. 04/11/24 03:25 Blood - Blood Aerobic Blood Culture - Final No growth in 5 days. 04/11/24 03:25 Blood - Blood Anaerobic Blood Culture - Final No growth in 5 days. 04/11/24 16:20 Wound - Abscess Gram Stain - Final 04/11/24 16:20 Wound - Abscess Culture & Sensitivity - Final No growth. Assessment/ Plan: Nephrology No dyspnea No chest pain Persistent right thigh pain No acute events overnight Vitals, medications, blood work and imaging reviewed in the chart Physical Examination General: Oriented x3, Cooperative HEENT: Atraumatic Neck: Supple Respiratory: Clear to auscultation bilaterally Cardiovascular: Regular rate/rhythm, Edema Gastrointestinal: Soft and benign, Non-distended Musculoskeletal: No clubbing, No contractures Integumentary: No rashes, No cyanosis, Tenderness/swelling Neurological: Normal speech Laboratory Data (last 24 hrs) 04/11/24 04/11/24 04/11/24 03:25 03:25 03:25 WBC 10.20 Hgb 9.1 L Hct 26.7 L Plt Count 357 PT 14.9 H INR 1.34 APTT 33.0 Sodium 126 L Potassium 4.5 BUN 56 H Creatinine 8.03 H Glucose 107 H Total Bilirubin 0.4 AST < 10 L ALT < 14 Alkaline Phosphatase 93 Imagings Data: EXAM DESCRIPTION: CT - Femur Right Wo Con - 04/11/2024 6:45 am CLINICAL HISTORY: Female, 48 years old, right thigh infection , extend ct to right thigh COMPARISON: 04/04/2024 TECHNIQUE: CT acquisition of the pelvis and right thigh without contrast. Coronal and sagittal reformatted images provided. This exam was performed according to departmental dose-optimization program which includes automated exposure control, adjustment of the mA and/or kV according to patient size, and/or use of iterative reconstruction technique. FINDINGS: Soft tissue characterization limited by lack of intravenous contrast. Exam is also limited by reformations only provided in bone algorithm, mild photon starvation, and portions of the posterolateral thigh outside of the field of view. Slight interval worsening in degree and extent of extensive subcutaneous soft tissue stranding throughout the right greater than left pelvis, in the right side. Asymmetric right thigh skin thickening is present. No evidence of fluid collection, deep fascial edema, or soft tissue gas. Intramuscular fat planes are preserved. Severe diffuse atherosclerosis. Small moderate volume of pelvic ascites, with partially imaged dialysis type catheter coiled in the left pelvis. No acute osseous finding, evidence of erosion or pathologic sclerosis. Mild degenerative changes of the lumbosacral spine, sacroiliac joints, hips and right knee. Small right knee joint effusion. IMPRESSION: 1. Slight interval worsening of diffuse edema and/or inflammatory stranding throughout the right pelvis and right thigh from prior CT, without appreciable fluid collection or soft tissue gas. 2. Pelvic ascites may be related to peritoneal dialysis. 3. Additional chronic and incidental findings above. 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
[2024-04-24 06:29] LABS: Hematocrit 26.5 % (36.0-45.0); Hemoglobin 8.9 g/dL (12.0-15.0); MCH 31.2 pg (27.0-35.0); MCHC 33.5 g/dL (32.0-36.0); MCV 93.4 fL (80-100); MPV 7.7 fL (7.6-11.3); Platelets 432 thou/uL (152-406); RBC Red Blood Cell Count 2.84 M/uL (3.86-4.86); Red Cell Distribution Width 16.5 % (12.1-15.2)
[2024-04-24 06:37] LABS: Anion Gap 12.4 mEq/L (5.0-15.0); Potassium 4.4 mEq/L (3.5-5.1)
[2024-04-24] MEDS: ALBUMIN HUMAN 25% 100 ML IV ONE (10:03)
--- NOTE | 2024-04-24 10:18 | P.PN ---
Date of Service: 04/24/24 Subjective No acute events overnight Continue with HD, abx ROS 10 point ROS as noted above, otherwise negative Physical Exam General: AAO x3, NAD, uncomfortable HEENT: Atraumatic, Normocephalic, PERRLA Neck: Supple, 2+ carotid pulse no bruit Respiratory: Nonlabored breathing, symmetrical chest wall movement, on room air Cardiovascular: Regular rate and rhythm, Normal S1 S2 present Capillary refill: <2 Seconds Gastrointestinal: Soft and benign on palpation, NT, distended (Obese), active bowel sounds Musculoskeletal: Erythema (right outer aspect of thigh), Tenderness (right outer ascept of thigh) Integumentary: Erythema (right outer ascept of thigh), Warmth (right outer ascept of thigh), Dressing CDI Neurological: Normal speech, Normal tone Vitals Reviewed Problem list Right lower extremity trauma/infection Prolonged QT/QTc Diabetes mellitusIDDM End-stage renal disease anemia of chronic disease History HTN/HLD History of depression History of bilateral BKA History of hypothyroidism History of CHF History of CAD with coronary stents Plan Right lower extremity trauma/infection Bilateral thigh cellulitis, calciphylaxis Diarrhea -Pain control Dilaudid p.o. and dilaudid IV -blood cultures- NGTD -wound cultures-no WBC or organisms seen -Consult Dr. Alvarado Merrem 500 IV and Vanc IV for two weeks (end date 04/25) after each dialysis -vanc dosing per pharmacy -bedtadine to bilateral thigh cellulitis, right thigh add petroleum gauze with island dressing -Dr. Lopez- I and D 04/11, daily dressing changes with vashe damp to dry -Midline placed -HD cath placed evening 04/20 -Continue with HD as ordered by nephrology -Still having difficulty placing prosthetics significantly limiting her mobility -Very limited by her inability to put on her prosthetics Hypotensive-resolved Prolonged QT/QTc -QT/QTc 450/519 on repeat EKG 04/12 -Hold medications that prolongs QT -Midodrine started 04/16 Anemia of chronic disease received 1 unit PRBC 04/22 Diabetes mellitusIDDM -Accu-Check with sliding scale insulin End-stage renal disease Hyponatremia Hypocalcemia Anemia -H/H stable- continue to monitor -Transfuse PRN -Continue monitoring sodium and calcium -Peritoneal dialysis with home equipment, likely to initiate HD inpatient -Nephrology following -Vancomycin and meropenem after each dialysis, vanc managed per pharmacy History HTN/HLD History of depression History of bilateral BKA History of hypothyroidism History of CHF History of CAD with coronary stents -Continue home medications -Continuous telemetry DVT PPx SCD Full code LOS 1-2 days Discharge Plan: Inpatient rehab
--- NOTE | 2024-04-24 12:12 | PN ---
Subjective: The patient is feeling much better today. Denies any chest pain, abdominal pain, consti pation, or diarrhea. About to get hemodialysis in her room. Objective: Vital Signs: Reviewed. Lungs: Basal crackles. Heart: S1, S2. Regular. Abdomen: Soft, nontender. Bowel sounds present. Extremity: 1+ edema. Laboratory Data: WBC 10.3 down from 11.6, hemoglobin 8.9, platelets 432. Chemistry shows BUN of 46, creatinine 8.2. Cultures are negative. Right wound lower extremity wound VAC is in place. Assessment And Plan: Bilateral lower extremity cellulitis, improving. Leukocytosis, improving. The patient is currently being treated with meropenem and vancomycin, we will recommend to continue tota l of 4 weeks. Consider long-term acute care. We will follow the patient as needed. NF/MODL Voice ID: [id number] Report ID: [id number]
[2024-04-24] MEDS: ALTEPLASE 2 MG/VIAL IV SCH ×2 (12:22→13:14)
[2024-04-24] MEDS ORDERED: ALTEPLASE 2 MG/VIAL IV SCH (13:00)
[2024-04-24] MEDS: Meropenem 500 MG in NA CHLORIDE 0.9% 100 ML IV SCH (21:01)
--- NOTE | 2024-04-24 21:38 | P.PN ---
Date of Service: 04/24/24 Vital Signs Temp Pulse Resp BP Pulse Ox 98.0 F 69 15 86/50 L 97 04/24/24 15:55 04/24/24 15:55 04/24/24 18:06 04/24/24 15:55 04/24/24 18:06 Medications Docusate Sodium (Docusate Na 100 Mg Cap) 100 mg PO BID [facility] Last Admin: 04/24/24 09:00 Dose: Not Given Epoetin Castro (Epoetin Castro 10,000 Unit/Ml Vial) 10,000 unit SQ MoWeFr@1700 [facility] Last Admin: 04/23/24 16:47 Dose: 10,000 unit Furosemide (Furosemide 40 Mg Tablet) 80 mg PO BIDL [facility] Last Admin: 04/24/24 16:23 Dose: Not Given Gabapentin (Gabapentin 100 Mg Cap) 100 mg PO TID [facility] Last Admin: 04/24/24 13:17 Dose: 100 mg Heparin Sodium (Porcine) (Heparin 1,000 Unit/Ml Vial) 6,000 unit IV EVERY HD PRN PRN Reason: FOR DIALYSIS CATHETER CARE Last Admin: 04/24/24 09:54 Dose: 6,000 unit Heparin Sodium (Porcine) (Heparin 5000 Unit/Ml 1 Ml Vial) 5,000 unit SQ Q12HR [facility] Last Admin: 04/24/24 09:50 Dose: 5,000 unit Hydromorphone HCl (Hydromorphone Oral 2 Mg Tab) 4 mg PO Q4H PRN PRN Reason: Pain scale 8-10 (Severe) Last Admin: 04/24/24 18:06 Dose: 4 mg Hydromorphone HCl (Hydromorphone Hcl 0.5 Mg/0.5 Ml Inj) 1 mg IV Q6H PRN PRN Reason: BREAKTHROUGH PAIN Last Admin: 04/24/24 19:23 Dose: 1 mg Vancomycin HCl 1 gm/ Sodium (Chloride) 250 mls @ 250 mls/hr IVPB AFTER EACH DIALYSIS [facility]; Protocol Sodium Chloride (Sodium Chloride) 250 mls @ 30 mls/hr IV .Q8H20M [facility] Last Admin: 04/24/24 14:00 Dose: Not Given Meropenem 500 mg/ Sodium (Chloride) 100 mls @ 200 mls/hr IV Q24H [facility] Stop: 04/25/24 21:29 Insulin Human Regular (Insulin Regular (Human) 100 Unit/Ml) 0 unit SQ ACHS [facility]; Protocol Last Admin: 04/24/24 16:22 Dose: Not Given Lactobacillus Acidoph/Bulgaricus (Lactobacillus/Acidophilus Tab) 1 tab PO TID [facility] Last Admin: 04/24/24 13:17 Dose: 1 tab Lidocaine (Lidocaine 4% Patch) 1 patch TOP DAILY [facility] Last Admin: 04/24/24 09:49 Dose: 1 patch Midodrine (Midodrine Hcl 5 Mg Tablet) 5 mg PO TID [facility] Last Admin: 04/24/24 13:18 Dose: 5 mg Nutritional Formula (Ensure High Protein 237 Ml Can) 237 ml PO BID [facility] Pantoprazole Sodium (Pantoprazole 40mg Tablet) 40 mg PO DAILYAC [facility]; Protocol Last Admin: 04/24/24 05:53 Dose: 40 mg Scopolamine HBr (Scopolamine Hydrobromide Patch) 1 pat TD Q3D@0900 [facility] Last Admin: 04/24/24 09:00 Dose: Not Given Sevelamer Carbonate (Sevelamer Carbonate 800 Mg Tablet) 2,400 mg PO TIDWM [facility] Last Admin: 04/24/24 18:06 Dose: 2,400 mg Sucralfate (Sucralfate 1 Gm Tablet) 1 gm PO ACHS PRN PRN Reason: INDIGESTION Last Admin: 04/21/24 10:15 Dose: 1 gm Microbiology Results 04/11/24 16:20 Wound - Abscess Gram Stain - Final 04/11/24 16:20 Wound - Abscess Anaerobic Culture - Final NO ANAEROBES GROWN. 04/11/24 03:48 Blood - Blood Aerobic Blood Culture - Final No growth in 5 days. 04/11/24 03:48 Blood - Blood Anaerobic Blood Culture - Final No growth in 5 days. 04/11/24 03:25 Blood - Blood Aerobic Blood Culture - Final No growth in 5 days. 04/11/24 03:25 Blood - Blood Anaerobic Blood Culture - Final No growth in 5 days. 04/11/24 16:20 Wound - Abscess Gram Stain - Final 04/11/24 16:20 Wound - Abscess Culture & Sensitivity - Final No growth. Assessment/ Plan: Nephrology No dyspnea No chest pain Persistent right thigh pain No acute events overnight Vitals, medications, blood work and imaging reviewed in the chart Physical Examination General: Oriented x3, Cooperative HEENT: Atraumatic Neck: Supple Respiratory: Clear to auscultation bilaterally Cardiovascular: Regular rate/rhythm, Edema Gastrointestinal: Soft and benign, Non-distended Musculoskeletal: No clubbing, No contractures Integumentary: No rashes, No cyanosis, Tenderness/swelling Neurological: Normal speech Laboratory Data (last 24 hrs) 04/11/24 04/11/24 04/11/24 03:25 03:25 03:25 WBC 10.20 Hgb 9.1 L Hct 26.7 L Plt Count 357 PT 14.9 H INR 1.34 APTT 33.0 Sodium 126 L Potassium 4.5 BUN 56 H Creatinine 8.03 H Glucose 107 H Total Bilirubin 0.4 AST < 10 L ALT < 14 Alkaline Phosphatase 93 Imagings Data: EXAM DESCRIPTION: CT - Femur Right Wo Con - 04/11/2024 6:45 am CLINICAL HISTORY: Female, 48 years old, right thigh infection , extend ct to right thigh COMPARISON: 04/04/2024 TECHNIQUE: CT acquisition of the pelvis and right thigh without contrast. Coronal and sagittal reformatted images provided. This exam was performed according to departmental dose-optimization program which includes automated exposure control, adjustment of the mA and/or kV according to patient size, and/or use of iterative reconstruction technique. FINDINGS: Soft tissue characterization limited by lack of intravenous contrast. Exam is also limited by reformations only provided in bone algorithm, mild photon starvation, and portions of the posterolateral thigh outside of the field of view. Slight interval worsening in degree and extent of extensive subcutaneous soft tissue stranding throughout the right greater than left pelvis, in the right side. Asymmetric right thigh skin thickening is present. No evidence of fluid collection, deep fascial edema, or soft tissue gas. Intramuscular fat planes are preserved. Severe diffuse atherosclerosis. Small moderate volume of pelvic ascites, with partially imaged dialysis type catheter coiled in the left pelvis. No acute osseous finding, evidence of erosion or pathologic sclerosis. Mild degenerative changes of the lumbosacral spine, sacroiliac joints, hips and right knee. Small right knee joint effusion. IMPRESSION: 1. Slight interval worsening of diffuse edema and/or inflammatory stranding throughout the right pelvis and right thigh from prior CT, without appreciable fluid collection or soft tissue gas. 2. Pelvic ascites may be related to peritoneal dialysis. 3. Additional chronic and incidental findings above. 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
[2024-04-24] MEDS: ENSURE HIGH PROTEIN 237 ML CAN PO SCH (21:46)
[2024-04-25 04:54] LABS: Hematocrit 29.1 % (36.0-45.0); Hemoglobin 9.3 g/dL (12.0-15.0); MCH 30.3 pg (27.0-35.0); MCV 94.6 fL (80-100); MPV 7.8 fL (7.6-11.3); Platelets 437 thou/uL (152-406); RBC Red Blood Cell Count 3.08 M/uL (3.86-4.86); Red Cell Distribution Width 16.6 % (12.1-15.2)
[2024-04-25 05:17] LABS: Anion Gap 11.1 mEq/L (5.0-15.0); Potassium 4.1 mEq/L (3.5-5.1)
[2024-04-25] MEDS: VANCOMYCIN 1 GM in NA CHLORIDE 0.9% 250 ML IVPB SCH (08:42)
[2024-04-25] MEDS: ALTEPLASE 2 MG/VIAL IV SCH (12:00)
[2024-04-25] MEDS: ALBUMIN HUMAN 25% 100 ML IV ONE (12:00)
--- NOTE | 2024-04-25 13:18 | P.PN ---
Date of Service: 04/25/24 Subjective No acute events overnight Continue with HD, abx HD catheter not flowing well yesterday Did complete PD last night ROS 10 point ROS as noted above, otherwise negative Physical Exam General: AAO x3, NAD, uncomfortable HEENT: Atraumatic, Normocephalic, PERRLA Neck: Supple, 2+ carotid pulse no bruit Respiratory: Nonlabored breathing, symmetrical chest wall movement, on room air Cardiovascular: Regular rate and rhythm, Normal S1 S2 present Capillary refill: <2 Seconds Gastrointestinal: Soft and benign on palpation, NT, distended (Obese), active bowel sounds Musculoskeletal: Erythema (right outer aspect of thigh), Tenderness (right outer ascept of thigh) Integumentary: Erythema (right outer ascept of thigh), Warmth (right outer ascept of thigh), Dressing CDI Neurological: Normal speech, Normal tone Vitals Reviewed Problem list Right lower extremity trauma/infection Prolonged QT/QTc Diabetes mellitusIDDM End-stage renal disease anemia of chronic disease History HTN/HLD History of depression History of bilateral BKA History of hypothyroidism History of CHF History of CAD with coronary stents Plan Right lower extremity trauma/infection Bilateral thigh cellulitis, calciphylaxis Diarrhea -Pain control Dilaudid p.o. and dilaudid IV -blood cultures- NGTD -wound cultures-no WBC or organisms seen -Consult Dr. Alvarado Merrem 500 IV and Vanc IV for two weeks (end date 04/25) after each dialysis -vanc dosing per pharmacy -bedtadine to bilateral thigh cellulitis, right thigh add petroleum gauze with island dressing -Dr. Lopez- I and D 04/11, daily dressing changes with vashe damp to dry -Midline placed -HD cath placed evening 04/20 -Continue with HD/PD as ordered by nephrology -Still having difficulty placing prosthetics significantly limiting her mobility -Very limited by her inability to put on her prosthetics -Working with PT doing bed exercises Hypotensive-resolved Prolonged QT/QTc -QT/QTc 450/519 on repeat EKG 04/12 -Hold medications that prolongs QT -Midodrine started 04/16 Anemia of chronic disease received 1 unit PRBC 04/22 Diabetes mellitusIDDM -Accu-Check with sliding scale insulin End-stage renal disease Hyponatremia Hypocalcemia Anemia -H/H stable- continue to monitor -Transfuse PRN -Continue monitoring sodium and calcium -Started on HD inpatient, catheter giving issues, did PD last night -Nephrology following -Vancomycin and meropenem after each dialysis, vanc managed per pharmacy History HTN/HLD History of depression History of bilateral BKA History of hypothyroidism History of CHF History of CAD with coronary stents -Continue home medications -Continuous telemetry DVT PPx SCD Full code LOS 1-2 days Discharge Plan: Inpatient rehab
[2024-04-25] MEDS: NA CHLORIDE 0.9% 250 ML ONE (21:21)
--- NOTE | 2024-04-25 22:15 | P.PN ---
Date of Service: 04/25/24 Vital Signs Temp Pulse Resp BP Pulse Ox 97.6 F 82 18 119/58 L 94 04/25/24 20:00 04/25/24 20:00 04/25/24 20:00 04/25/24 20:00 04/25/24 20:00 Medications Docusate Sodium (Docusate Na 100 Mg Cap) 100 mg PO BID [facility] Last Admin: 04/25/24 21:00 Dose: Not Given Epoetin Castro (Epoetin Castro 10,000 Unit/Ml Vial) 10,000 unit SQ MoWeFr@1700 [facility] Last Admin: 04/25/24 17:58 Dose: 10,000 unit Furosemide (Furosemide 40 Mg Tablet) 80 mg PO BIDL [facility] Last Admin: 04/25/24 16:32 Dose: 80 mg Gabapentin (Gabapentin 100 Mg Cap) 100 mg PO TID [facility] Last Admin: 04/25/24 21:35 Dose: 100 mg Heparin Sodium (Porcine) (Heparin 1,000 Unit/Ml Vial) 6,000 unit IV EVERY HD PRN PRN Reason: FOR DIALYSIS CATHETER CARE Last Admin: 04/25/24 15:04 Dose: 6,000 unit Heparin Sodium (Porcine) (Heparin 5000 Unit/Ml 1 Ml Vial) 5,000 unit SQ Q12HR [facility] Last Admin: 04/25/24 21:32 Dose: 5,000 unit Heparin Sodium (Porcine) (Heparin 1,000 Unit/Ml Vial) 2,000 unit IV EVERY HD PRN PRN Reason: Prevent HD System Clotting Last Admin: 04/25/24 11:57 Dose: 2,000 unit Hydromorphone HCl (Hydromorphone Oral 2 Mg Tab) 4 mg PO Q4H PRN PRN Reason: Pain scale 8-10 (Severe) Last Admin: 04/24/24 18:06 Dose: 4 mg Hydromorphone HCl (Hydromorphone Hcl 0.5 Mg/0.5 Ml Inj) 1 mg IV Q6H PRN PRN Reason: BREAKTHROUGH PAIN Last Admin: 04/25/24 16:33 Dose: 1 mg Sodium Chloride (Sodium Chloride) 250 mls @ 30 mls/hr IV .[id number] [facility] Last Admin: 04/25/24 21:52 Dose: Not Given Vancomycin HCl 1 gm/ Sodium (Chloride) 250 mls @ 250 mls/hr IVPB Q96H [facility]; Protocol Insulin Human Regular (Insulin Regular (Human) 100 Unit/Ml) 0 unit SQ ACHS [facility]; Protocol Last Admin: 04/25/24 21:00 Dose: Not Given Lactobacillus Acidoph/Bulgaricus (Lactobacillus/Acidophilus Tab) 1 tab PO TID [facility] Last Admin: 04/25/24 21:00 Dose: 1 tab Lidocaine (Lidocaine 4% Patch) 1 patch TOP DAILY [facility] Last Admin: 04/25/24 08:42 Dose: 1 patch Midodrine (Midodrine Hcl 5 Mg Tablet) 5 mg PO TID [facility] Last Admin: 04/25/24 21:34 Dose: 5 mg Nutritional Formula (Ensure High Protein 237 Ml Can) 237 ml PO BID [facility] Last Admin: 04/25/24 21:37 Dose: 237 ml Pantoprazole Sodium (Pantoprazole 40mg Tablet) 40 mg PO DAILYAC [facility]; Protocol Last Admin: 04/25/24 06:07 Dose: 40 mg Scopolamine HBr (Scopolamine Hydrobromide Patch) 1 pat TD Q3D@0900 [facility] Last Admin: 04/24/24 09:00 Dose: Not Given Sevelamer Carbonate (Sevelamer Carbonate 800 Mg Tablet) 2,400 mg PO TIDWM [facility] Last Admin: 04/25/24 16:33 Dose: 2,400 mg Sucralfate (Sucralfate 1 Gm Tablet) 1 gm PO ACHS PRN PRN Reason: INDIGESTION Last Admin: 04/21/24 10:15 Dose: 1 gm Microbiology Results 04/11/24 16:20 Wound - Abscess Gram Stain - Final 04/11/24 16:20 Wound - Abscess Anaerobic Culture - Final NO ANAEROBES GROWN. 04/11/24 03:48 Blood - Blood Aerobic Blood Culture - Final No growth in 5 days. 04/11/24 03:48 Blood - Blood Anaerobic Blood Culture - Final No growth in 5 days. 04/11/24 03:25 Blood - Blood Aerobic Blood Culture - Final No growth in 5 days. 04/11/24 03:25 Blood - Blood Anaerobic Blood Culture - Final No growth in 5 days. 04/11/24 16:20 Wound - Abscess Gram Stain - Final 04/11/24 16:20 Wound - Abscess Culture & Sensitivity - Final No growth. Assessment/ Plan: Nephrology No dyspnea No chest pain Persistent right thigh pain No acute events overnight Vitals, medications, blood work and imaging reviewed in the chart Physical Examination General: Oriented x3, Cooperative HEENT: Atraumatic Neck: Supple Respiratory: Clear to auscultation bilaterally Cardiovascular: Regular rate/rhythm, Edema Gastrointestinal: Soft and benign, Non-distended Musculoskeletal: No clubbing, No contractures Integumentary: No rashes, No cyanosis, Tenderness/swelling Neurological: Normal speech Laboratory Data (last 24 hrs) 04/11/24 04/11/24 04/11/24 03:25 03:25 03:25 WBC 10.20 Hgb 9.1 L Hct 26.7 L Plt Count 357 PT 14.9 H INR 1.34 APTT 33.0 Sodium 126 L Potassium 4.5 BUN 56 H Creatinine 8.03 H Glucose 107 H Total Bilirubin 0.4 AST < 10 L ALT < 14 Alkaline Phosphatase 93 Imagings Data: EXAM DESCRIPTION: CT - Femur Right Wo Con - 04/11/2024 6:45 am CLINICAL HISTORY: Female, 48 years old, right thigh infection , extend ct to right thigh COMPARISON: 04/04/2024 TECHNIQUE: CT acquisition of the pelvis and right thigh without contrast. Coronal and sagittal reformatted images provided. This exam was performed according to departmental dose-optimization program which includes automated exposure control, adjustment of the mA and/or kV according to patient size, and/or use of iterative reconstruction technique. FINDINGS: Soft tissue characterization limited by lack of intravenous contrast. Exam is also limited by reformations only provided in bone algorithm, mild photon starvation, and portions of the posterolateral thigh outside of the field of view. Slight interval worsening in degree and extent of extensive subcutaneous soft tissue stranding throughout the right greater than left pelvis, in the right side. Asymmetric right thigh skin thickening is present. No evidence of fluid collection, deep fascial edema, or soft tissue gas. Intramuscular fat planes are preserved. Severe diffuse atherosclerosis. Small moderate volume of pelvic ascites, with partially imaged dialysis type catheter coiled in the left pelvis. No acute osseous finding, evidence of erosion or pathologic sclerosis. Mild degenerative changes of the lumbosacral spine, sacroiliac joints, hips and right knee. Small right knee joint effusion. IMPRESSION: 1. Slight interval worsening of diffuse edema and/or inflammatory stranding throughout the right pelvis and right thigh from prior CT, without appreciable fluid collection or soft tissue gas. 2. Pelvic ascites may be related to peritoneal dialysis. 3. Additional chronic and incidental findings above. 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
[2024-04-26 09:09] LABS: Hematocrit 39.6 % (36.0-45.0); Hemoglobin 12.6 g/dL (12.0-15.0); MCH 25.3 pg (27.0-35.0); MCHC 31.8 g/dL (32.0-36.0); MCV 79.5 fL (80-100); Platelets 135 thou/uL (152-406); RBC Red Blood Cell Count 4.98 M/uL (3.86-4.86); Red Cell Distribution Width 30.5 % (12.1-15.2)
[2024-04-26 09:21] LABS: Anion Gap 8.9 mEq/L (5.0-15.0); Phosphorus 3.4 mg/dL (2.5-4.9); Potassium 3.9 mEq/L (3.5-5.1)
--- NOTE | 2024-04-26 12:56 | P.PN ---
Date of Service: 04/26/24 Subjective HD cath sluggish but ok for low flow use Still doing PD at night Appeal for IPR denied ROS 10 point ROS as noted above, otherwise negative Physical Exam General: AAO x3, NAD, uncomfortable HEENT: Atraumatic, Normocephalic, PERRLA Neck: Supple, 2+ carotid pulse no bruit Respiratory: Nonlabored breathing, symmetrical chest wall movement, on room air Cardiovascular: Regular rate and rhythm, Normal S1 S2 present Capillary refill: <2 Seconds Gastrointestinal: Soft and benign on palpation, NT, distended (Obese), active bowel sounds Musculoskeletal: Erythema (right outer aspect of thigh), Tenderness (right outer ascept of thigh) Integumentary: Erythema (right outer ascept of thigh), Warmth (right outer ascept of thigh), Dressing CDI Neurological: Normal speech, Normal tone Vitals Reviewed Problem list Right lower extremity trauma/infection Prolonged QT/QTc Diabetes mellitusIDDM End-stage renal disease anemia of chronic disease History HTN/HLD History of depression History of bilateral BKA History of hypothyroidism History of CHF History of CAD with coronary stents Plan Right lower extremity trauma/infection Bilateral thigh cellulitis, calciphylaxis Diarrhea -Pain control Dilaudid p.o. and dilaudid IV -blood cultures- NGTD -wound cultures-no WBC or organisms seen -Consult Dr. Alvarado Merrem 500 IV and Vanc IV for four weeks (end date 05/09) after each dialysis -vanc dosing per pharmacy -bedtadine to bilateral thigh cellulitis, right thigh add petroleum gauze with island dressing -Dr. Lopez- I and D 04/11, daily dressing changes with vashe damp to dry -Midline placed -HD cath placed evening 04/20 -Continue with HD/PD as ordered by nephrology -HD cath sluggish, ok for low flow use and fluid removal -Will try some compressions to lower extremities -Still having difficulty placing prosthetics significantly limiting her mobility -Very limited by her inability to put on her prosthetics -Working with PT doing bed exercises Hypotensive-resolved Prolonged QT/QTc -QT/QTc 450/519 on repeat EKG 04/12 -Hold medications that prolongs QT -Midodrine started 04/16 Anemia of chronic disease received 1 unit PRBC 04/22 Diabetes mellitusIDDM -Accu-Check with sliding scale insulin End-stage renal disease Hyponatremia Hypocalcemia Anemia -H/H stable- continue to monitor -Transfuse PRN -Continue monitoring sodium and calcium -Started on HD inpatient with low flow for additional fluid removal -Nephrology following -Vancomycin and meropenem after each dialysis, vanc managed per pharmacy History HTN/HLD History of depression History of bilateral BKA History of hypothyroidism History of CHF History of CAD with coronary stents -Continue home medications -Continuous telemetry DVT PPx SCD Full code LOS 1-2 days Discharge Plan: Inpatient rehab
[2024-04-26] MEDS: ALBUMIN HUMAN 25% 100 ML IV ONE (14:00)
[2024-04-26] MEDS: NA CHLORIDE 0.9% 500 ML IV SCH (16:27)
[2024-04-26] MEDS: Meropenem 500 MG in NA CHLORIDE 0.9% 100 ML IV SCH (20:11)
--- NOTE | 2024-04-26 22:04 | P.PN ---
Date of Service: 04/26/24 Vital Signs Temp Pulse Resp BP Pulse Ox 98.5 F 96 H 17 117/51 L 94 04/26/24 20:00 04/26/24 20:00 04/26/24 20:10 04/26/24 20:00 04/26/24 20:10 Medications Docusate Sodium (Docusate Na 100 Mg Cap) 100 mg PO BID [facility] Last Admin: 04/26/24 20:10 Dose: 100 mg Epoetin Castro (Epoetin Castro 10,000 Unit/Ml Vial) 10,000 unit SQ MoWeFr@1700 [facility] Last Admin: 04/25/24 17:58 Dose: 10,000 unit Furosemide (Furosemide 40 Mg Tablet) 80 mg PO BIDL [facility] Last Admin: 04/26/24 16:28 Dose: Not Given Gabapentin (Gabapentin 100 Mg Cap) 100 mg PO TID [facility] Last Admin: 04/26/24 20:11 Dose: 100 mg Heparin Sodium (Porcine) (Heparin 1,000 Unit/Ml Vial) 6,000 unit IV EVERY HD PRN PRN Reason: FOR DIALYSIS CATHETER CARE Last Admin: 04/25/24 15:04 Dose: 6,000 unit Heparin Sodium (Porcine) (Heparin 5000 Unit/Ml 1 Ml Vial) 5,000 unit SQ Q12HR [facility] Last Admin: 04/26/24 20:34 Dose: 5,000 unit Heparin Sodium (Porcine) (Heparin 1,000 Unit/Ml Vial) 4,000 unit IV EVERY HD PRN PRN Reason: Prevent HD System Clotting Last Admin: 04/26/24 14:27 Dose: 4,000 unit Hydromorphone HCl (Hydromorphone Oral 2 Mg Tab) 4 mg PO Q4H PRN PRN Reason: Pain scale 8-10 (Severe) Last Admin: 04/26/24 20:10 Dose: 4 mg Hydromorphone HCl (Hydromorphone Hcl 0.5 Mg/0.5 Ml Inj) 1 mg IV Q6H PRN PRN Reason: BREAKTHROUGH PAIN Last Admin: 04/26/24 16:28 Dose: 1 mg Meropenem 500 mg/ Sodium (Chloride) 100 mls @ 200 mls/hr IV Q24H [facility] Stop: 05/09/24 21:29 Last Admin: 04/26/24 20:11 Dose: 100 mls Vancomycin HCl 1 gm/ Sodium (Chloride) 250 mls @ 250 mls/hr IVPB AFTER EACH DIALYSIS [facility]; Protocol Sodium Chloride (Sodium Chloride) 500 mls @ 30 mls/hr IV .[id number] [facility] Last Admin: 04/26/24 16:27 Dose: 500 mls Insulin Human Regular (Insulin Regular (Human) 100 Unit/Ml) 0 unit SQ ACHS [facility]; Protocol Last Admin: 04/26/24 16:02 Dose: Not Given Lactobacillus Acidoph/Bulgaricus (Lactobacillus/Acidophilus Tab) 1 tab PO TID [facility] Last Admin: 04/26/24 20:10 Dose: 1 tab Lidocaine (Lidocaine 4% Patch) 1 patch TOP DAILY [facility] Last Admin: 04/26/24 08:35 Dose: 1 patch Midodrine (Midodrine Hcl 5 Mg Tablet) 5 mg PO TID [facility] Last Admin: 04/26/24 20:11 Dose: 5 mg Nutritional Formula (Ensure High Protein 237 Ml Can) 237 ml PO BID [facility] Last Admin: 04/26/24 08:36 Dose: 237 ml Pantoprazole Sodium (Pantoprazole 40mg Tablet) 40 mg PO DAILYAC [facility]; Protocol Last Admin: 04/26/24 06:29 Dose: 40 mg Scopolamine HBr (Scopolamine Hydrobromide Patch) 1 pat TD Q3D@0900 [facility] Last Admin: 04/24/24 09:00 Dose: Not Given Sevelamer Carbonate (Sevelamer Carbonate 800 Mg Tablet) 2,400 mg PO TIDWM [facility] Last Admin: 04/26/24 16:28 Dose: 2,400 mg Sucralfate (Sucralfate 1 Gm Tablet) 1 gm PO ACHS PRN PRN Reason: INDIGESTION Last Admin: 04/21/24 10:15 Dose: 1 gm Microbiology Results 04/11/24 16:20 Wound - Abscess Gram Stain - Final 04/11/24 16:20 Wound - Abscess Anaerobic Culture - Final NO ANAEROBES GROWN. 04/11/24 03:48 Blood - Blood Aerobic Blood Culture - Final No growth in 5 days. 04/11/24 03:48 Blood - Blood Anaerobic Blood Culture - Final No growth in 5 days. 04/11/24 03:25 Blood - Blood Aerobic Blood Culture - Final No growth in 5 days. 04/11/24 03:25 Blood - Blood Anaerobic Blood Culture - Final No growth in 5 days. 04/11/24 16:20 Wound - Abscess Gram Stain - Final 04/11/24 16:20 Wound - Abscess Culture & Sensitivity - Final No growth. Assessment/ Plan: Nephrology No dyspnea No chest pain Persistent right thigh pain No acute events overnight Vitals, medications, blood work and imaging reviewed in the chart Physical Examination General: Oriented x3, Cooperative HEENT: Atraumatic Neck: Supple Respiratory: Clear to auscultation bilaterally Cardiovascular: Regular rate/rhythm, Edema Gastrointestinal: Soft and benign, Non-distended Musculoskeletal: No clubbing, No contractures Integumentary: No rashes, No cyanosis, Tenderness/swelling Neurological: Normal speech Laboratory Data (last 24 hrs) 04/11/24 04/11/24 04/11/24 03:25 03:25 03:25 WBC 10.20 Hgb 9.1 L Hct 26.7 L Plt Count 357 PT 14.9 H INR 1.34 APTT 33.0 Sodium 126 L Potassium 4.5 BUN 56 H Creatinine 8.03 H Glucose 107 H Total Bilirubin 0.4 AST < 10 L ALT < 14 Alkaline Phosphatase 93 Imagings Data: EXAM DESCRIPTION: CT - Femur Right Wo Con - 04/11/2024 6:45 am CLINICAL HISTORY: Female, 48 years old, right thigh infection , extend ct to right thigh COMPARISON: 04/04/2024 TECHNIQUE: CT acquisition of the pelvis and right thigh without contrast. Coronal and sagittal reformatted images provided. This exam was performed according to departmental dose-optimization program which includes automated exposure control, adjustment of the mA and/or kV according to patient size, and/or use of iterative reconstruction technique. FINDINGS: Soft tissue characterization limited by lack of intravenous contrast. Exam is also limited by reformations only provided in bone algorithm, mild photon starvation, and portions of the posterolateral thigh outside of the field of view. Slight interval worsening in degree and extent of extensive subcutaneous soft tissue stranding throughout the right greater than left pelvis, in the right side. Asymmetric right thigh skin thickening is present. No evidence of fluid collection, deep fascial edema, or soft tissue gas. Intramuscular fat planes are preserved. Severe diffuse atherosclerosis. Small moderate volume of pelvic ascites, with partially imaged dialysis type catheter coiled in the left pelvis. No acute osseous finding, evidence of erosion or pathologic sclerosis. Mild degenerative changes of the lumbosacral spine, sacroiliac joints, hips and right knee. Small right knee joint effusion. IMPRESSION: 1. Slight interval worsening of diffuse edema and/or inflammatory stranding throughout the right pelvis and right thigh from prior CT, without appreciable fluid collection or soft tissue gas. 2. Pelvic ascites may be related to peritoneal dialysis. 3. Additional chronic and incidental findings above. 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
[2024-04-27 07:06] LABS: Hematocrit 25.9 % (36.0-45.0); Hemoglobin 8.7 g/dL (12.0-15.0); MCH 31.4 pg (27.0-35.0); MCHC 33.5 g/dL (32.0-36.0); Platelets 369 thou/uL (152-406); RBC Red Blood Cell Count 2.75 M/uL (3.86-4.86); Red Cell Distribution Width 16.3 % (12.1-15.2)
[2024-04-27 07:32] LABS: Anion Gap 7.7 mEq/L (5.0-15.0); Magnesium 1.8 mg/dL (1.6-2.4); Phosphorus 2.7 mg/dL (2.5-4.9); Potassium 3.7 mEq/L (3.5-5.1)
[2024-04-27] MEDS ORDERED: ALBUMIN HUMAN 25% 100 ML IV ONE (10:43)
[2024-04-27] MEDS: ALBUMIN HUMAN 25% 100 ML IV SCH (11:30)
[2024-04-27] MEDS: VANCOMYCIN 1 GM in NA CHLORIDE 0.9% 250 ML IVPB SCH (15:38)
[2024-04-27] MEDS ORDERED: VANCOMYCIN 1 GM in NA CHLORIDE 0.9% 250 ML IVPB SCH (18:00)
--- NOTE | 2024-04-27 19:43 | P.PN ---
Date of Service: 04/27/24 Subjective HD cath sluggish but ok for low flow use Still doing PD at night Appeal for IPR denied, considering SNF Some improvement in swelling to FLOWER LE ROS 10 point ROS as noted above, otherwise negative Physical Exam General: AAO x3, NAD, uncomfortable HEENT: Atraumatic, Normocephalic, PERRLA Neck: Supple, 2+ carotid pulse no bruit Respiratory: Nonlabored breathing, symmetrical chest wall movement, on room air Cardiovascular: Regular rate and rhythm, Normal S1 S2 present Capillary refill: <2 Seconds Gastrointestinal: Soft and benign on palpation, NT, distended (Obese), active bowel sounds Musculoskeletal: Erythema (right outer aspect of thigh), Tenderness (right outer ascept of thigh) Integumentary: Erythema (right outer ascept of thigh), Warmth (right outer ascept of thigh), Dressing CDI Neurological: Normal speech, Normal tone Vitals Reviewed Problem list Right lower extremity trauma/infection Prolonged QT/QTc Diabetes mellitusIDDM End-stage renal disease anemia of chronic disease History HTN/HLD History of depression History of bilateral BKA History of hypothyroidism History of CHF History of CAD with coronary stents Plan Right lower extremity trauma/infection Bilateral thigh cellulitis, calciphylaxis Diarrhea -Pain control Dilaudid p.o. and dilaudid IV -blood cultures- NGTD -wound cultures-no WBC or organisms seen -Consult Dr. Alvarado Merrem 500 IV and Vanc IV for four weeks (end date 05/09) after each dialysis -vanc dosing per pharmacy -bedtadine to bilateral thigh cellulitis, right thigh add petroleum gauze with island dressing -Dr. Lopez- I and D 04/11, daily dressing changes with vashe damp to dry -Midline placed -HD cath placed evening 04/20 -Continue with HD/PD as ordered by nephrology -HD cath sluggish, ok for low flow use and fluid removal -Still doing PD at night -Compression stockings placed to FLOWER LE seem to help -Still having difficulty placing prosthetics significantly limiting her mobility -Very limited by her inability to put on her prosthetics -Working with PT doing bed exercises Hypotensive-resolved Prolonged QT/QTc -QT/QTc 450/519 on repeat EKG 04/12 -Hold medications that prolongs QT -Midodrine started 04/16 Anemia of chronic disease received 1 unit PRBC 04/22 Diabetes mellitusIDDM -Accu-Check with sliding scale insulin End-stage renal disease Hyponatremia Hypocalcemia Anemia -H/H stable- continue to monitor -Transfuse PRN -Continue monitoring sodium and calcium -Started on HD inpatient with low flow for additional fluid removal -Nephrology following -Vancomycin and meropenem after each dialysis, vanc managed per pharmacy History HTN/HLD History of depression History of bilateral BKA History of hypothyroidism History of CHF History of CAD with coronary stents -Continue home medications -Continuous telemetry DVT PPx heparin subq Full code LOS 1-2 days Discharge Plan: SNF
--- NOTE | 2024-04-27 19:55 | P.PN ---
Date of Service: 04/27/24 Vital Signs Temp Pulse Resp BP Pulse Ox 97.6 F 72 18 113/60 100 04/27/24 16:00 04/27/24 16:00 04/27/24 17:49 04/27/24 16:48 04/27/24 16:00 Medications Docusate Sodium (Docusate Na 100 Mg Cap) 100 mg PO BID [facility] Last Admin: 04/27/24 08:27 Dose: 100 mg Epoetin Castro (Epoetin Castro 10,000 Unit/Ml Vial) 10,000 unit SQ MoWeFr@1700 [facility] Last Admin: 04/27/24 16:49 Dose: 10,000 unit Furosemide (Furosemide 40 Mg Tablet) 80 mg PO BIDL [facility] Last Admin: 04/27/24 16:48 Dose: 80 mg Gabapentin (Gabapentin 100 Mg Cap) 100 mg PO TID [facility] Last Admin: 04/27/24 13:28 Dose: 100 mg Heparin Sodium (Porcine) (Heparin 1,000 Unit/Ml Vial) 6,000 unit IV EVERY HD PRN PRN Reason: FOR DIALYSIS CATHETER CARE Last Admin: 04/27/24 14:30 Dose: 6,000 unit Heparin Sodium (Porcine) (Heparin 5000 Unit/Ml 1 Ml Vial) 5,000 unit SQ Q12HR [facility] Last Admin: 04/27/24 08:26 Dose: 5,000 unit Heparin Sodium (Porcine) (Heparin 1,000 Unit/Ml Vial) 4,000 unit IV EVERY HD PRN PRN Reason: Prevent HD System Clotting Last Admin: 04/27/24 11:27 Dose: 4,000 unit Hydromorphone HCl (Hydromorphone Oral 2 Mg Tab) 4 mg PO Q4H PRN PRN Reason: Pain scale 8-10 (Severe) Last Admin: 04/27/24 16:49 Dose: 4 mg Hydromorphone HCl (Hydromorphone Hcl 0.5 Mg/0.5 Ml Inj) 1 mg IV Q6H PRN PRN Reason: BREAKTHROUGH PAIN Last Admin: 04/26/24 22:42 Dose: 1 mg Meropenem 500 mg/ Sodium (Chloride) 100 mls @ 200 mls/hr IV Q24H [facility] Stop: 05/09/24 21:29 Last Admin: 04/26/24 20:11 Dose: 100 mls Vancomycin HCl 1 gm/ Sodium (Chloride) 250 mls @ 250 mls/hr IVPB AFTER EACH DIALYSIS [facility]; Protocol Sodium Chloride (Sodium Chloride) 500 mls @ 30 mls/hr IV .[id number] [facility] Last Admin: 04/27/24 08:28 Dose: Not Given Vancomycin HCl 1 gm/ Sodium (Chloride) 250 mls @ 250 mls/hr IVPB 1X [facility] Last Admin: 04/27/24 15:38 Dose: Not Given Insulin Human Regular (Insulin Regular (Human) 100 Unit/Ml) 0 unit SQ ACHS [facility]; Protocol Last Admin: 04/27/24 15:38 Dose: Not Given Lactobacillus Acidoph/Bulgaricus (Lactobacillus/Acidophilus Tab) 1 tab PO TID [facility] Last Admin: 04/27/24 13:28 Dose: 1 tab Lidocaine (Lidocaine 4% Patch) 1 patch TOP DAILY [facility] Last Admin: 04/27/24 08:28 Dose: 1 patch Midodrine (Midodrine Hcl 5 Mg Tablet) 5 mg PO TID [facility] Last Admin: 04/27/24 13:28 Dose: 5 mg Nutritional Formula (Ensure High Protein 237 Ml Can) 237 ml PO BID [facility] Last Admin: 04/27/24 08:28 Dose: Not Given Pantoprazole Sodium (Pantoprazole 40mg Tablet) 40 mg PO DAILYAC [facility]; Protocol Last Admin: 04/27/24 05:13 Dose: 40 mg Scopolamine HBr (Scopolamine Hydrobromide Patch) 1 pat TD Q3D@0900 [facility] Last Admin: 04/27/24 08:28 Dose: Not Given Sevelamer Carbonate (Sevelamer Carbonate 800 Mg Tablet) 2,400 mg PO TIDWM [facility] Last Admin: 04/27/24 16:48 Dose: 2,400 mg Sucralfate (Sucralfate 1 Gm Tablet) 1 gm PO ACHS PRN PRN Reason: INDIGESTION Last Admin: 04/21/24 10:15 Dose: 1 gm Microbiology Results 04/11/24 16:20 Wound - Abscess Gram Stain - Final 04/11/24 16:20 Wound - Abscess Anaerobic Culture - Final NO ANAEROBES GROWN. 04/11/24 03:48 Blood - Blood Aerobic Blood Culture - Final No growth in 5 days. 04/11/24 03:48 Blood - Blood Anaerobic Blood Culture - Final No growth in 5 days. 04/11/24 03:25 Blood - Blood Aerobic Blood Culture - Final No growth in 5 days. 04/11/24 03:25 Blood - Blood Anaerobic Blood Culture - Final No growth in 5 days. 04/11/24 16:20 Wound - Abscess Gram Stain - Final 04/11/24 16:20 Wound - Abscess Culture & Sensitivity - Final No growth. Assessment/ Plan: Nephrology No dyspnea No chest pain Persistent right thigh pain No acute events overnight Vitals, medications, blood work and imaging reviewed in the chart Physical Examination General: Oriented x3, Cooperative HEENT: Atraumatic Neck: Supple Respiratory: Clear to auscultation bilaterally Cardiovascular: Regular rate/rhythm, Edema Gastrointestinal: Soft and benign, Non-distended Musculoskeletal: No clubbing, No contractures Integumentary: No rashes, No cyanosis, Tenderness/swelling Neurological: Normal speech Laboratory Data (last 24 hrs) 04/11/24 04/11/24 04/11/24 03:25 03:25 03:25 WBC 10.20 Hgb 9.1 L Hct 26.7 L Plt Count 357 PT 14.9 H INR 1.34 APTT 33.0 Sodium 126 L Potassium 4.5 BUN 56 H Creatinine 8.03 H Glucose 107 H Total Bilirubin 0.4 AST < 10 L ALT < 14 Alkaline Phosphatase 93 Imagings Data: EXAM DESCRIPTION: CT - Femur Right Wo Con - 04/11/2024 6:45 am CLINICAL HISTORY: Female, 48 years old, right thigh infection , extend ct to right thigh COMPARISON: 04/04/2024 TECHNIQUE: CT acquisition of the pelvis and right thigh without contrast. Coronal and sagittal reformatted images provided. This exam was performed according to departmental dose-optimization program which includes automated exposure control, adjustment of the mA and/or kV according to patient size, and/or use of iterative reconstruction technique. FINDINGS: Soft tissue characterization limited by lack of intravenous contrast. Exam is also limited by reformations only provided in bone algorithm, mild photon starvation, and portions of the posterolateral thigh outside of the field of view. Slight interval worsening in degree and extent of extensive subcutaneous soft tissue stranding throughout the right greater than left pelvis, in the right side. Asymmetric right thigh skin thickening is present. No evidence of fluid collection, deep fascial edema, or soft tissue gas. Intramuscular fat planes are preserved. Severe diffuse atherosclerosis. Small moderate volume of pelvic ascites, with partially imaged dialysis type catheter coiled in the left pelvis. No acute osseous finding, evidence of erosion or pathologic sclerosis. Mild degenerative changes of the lumbosacral spine, sacroiliac joints, hips and right knee. Small right knee joint effusion. IMPRESSION: 1. Slight interval worsening of diffuse edema and/or inflammatory stranding throughout the right pelvis and right thigh from prior CT, without appreciable fluid collection or soft tissue gas. 2. Pelvic ascites may be related to peritoneal dialysis. 3. Additional chronic and incidental findings above. 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
[2024-04-27] MEDS ORDERED: [UNRECOGNIZED DRUG - OTHER] IV SCH (20:00)
[2024-04-27] MEDS ORDERED: SODIUM CHLORIDE IV SCH (20:00)
[2024-04-28] MEDS: HYDROMORPHONE HCL 2 MG/ML inj ONE ×4 (01:14→08:38)
[2024-04-28 05:20] LABS: Hemoglobin 8.5 g/dL (12.0-15.0); MCH 30.9 pg (27.0-35.0); MCHC 32.6 g/dL (32.0-36.0); MCV 94.5 fL (80-100); MPV 7.8 fL (7.6-11.3); Platelets 372 thou/uL (152-406); RBC Red Blood Cell Count 2.75 M/uL (3.86-4.86); Red Cell Distribution Width 16.3 % (12.1-15.2)
[2024-04-28 05:31] LABS: Anion Gap 9.9 mEq/L (5.0-15.0); Magnesium 1.6 mg/dL (1.6-2.4); Phosphorus 2.5 mg/dL (2.5-4.9); Potassium 3.9 mEq/L (3.5-5.1)
--- NOTE | 2024-04-28 10:37 | P.PN ---
Date of Service: 04/28/24 Subjective HD cath sluggish but ok for low flow use Still doing PD at night Appeal for IPR denied, considering SNF Some improvement in swelling to FLOWER LE ROS 10 point ROS as noted above, otherwise negative Physical Exam General: AAO x3, NAD, uncomfortable HEENT: Atraumatic, Normocephalic, PERRLA Neck: Supple, 2+ carotid pulse no bruit Respiratory: Nonlabored breathing, symmetrical chest wall movement, on room air Cardiovascular: Regular rate and rhythm, Normal S1 S2 present Capillary refill: <2 Seconds Gastrointestinal: Soft and benign on palpation, NT, distended (Obese), active bowel sounds Musculoskeletal: Erythema (right outer aspect of thigh), Tenderness (right outer ascept of thigh) Integumentary: Erythema (right outer ascept of thigh), Warmth (right outer ascept of thigh), Dressing CDI Neurological: Normal speech, Normal tone Vitals Reviewed Problem list Right lower extremity trauma/infection Prolonged QT/QTc Diabetes mellitusIDDM End-stage renal disease anemia of chronic disease History HTN/HLD History of depression History of bilateral BKA History of hypothyroidism History of CHF History of CAD with coronary stents Plan Right lower extremity trauma/infection Bilateral thigh cellulitis, calciphylaxis Diarrhea -Pain control Dilaudid p.o. and dilaudid IV -blood cultures- NGTD -wound cultures-no WBC or organisms seen -Consult Dr. Alvarado Merrem 500 IV and Vanc IV for four weeks (end date 05/09) after each dialysis -vanc dosing per pharmacy -bedtadine to bilateral thigh cellulitis, right thigh add petroleum gauze with island dressing -Dr. Lopez- I and D 04/11, now with wound vac in place -Midline placed LUE -HD cath placed evening 04/20 -Continue with HD/PD as ordered by nephrology -HD cath sluggish, ok for low flow use and fluid removal -Still doing PD at night -Compression stockings placed to FLOWER LE seem to help -Still having difficulty placing prosthetics significantly limiting her mobility -Very limited by her inability to put on her prosthetics -Working with PT doing bed exercises Hypotensive-resolved Prolonged QT/QTc -QT/QTc 450/519 on repeat EKG 04/12 -Hold medications that prolongs QT -Midodrine started 04/16 Anemia of chronic disease received 1 unit PRBC 04/22 Diabetes mellitusIDDM -Accu-Check with sliding scale insulin End-stage renal disease Hyponatremia Hypocalcemia Anemia -H/H stable- continue to monitor -Transfuse PRN -Continue monitoring sodium and calcium -Started on HD inpatient with low flow for additional fluid removal -Nephrology following -Vancomycin and meropenem after each dialysis, vanc managed per pharmacy History HTN/HLD History of depression History of bilateral BKA History of hypothyroidism History of CHF History of CAD with coronary stents -Continue home medications -Continuous telemetry DVT PPx heparin subq Full code LOS 1-2 days Discharge Plan: SNF
[2024-04-28] MEDS: HYDROMORPHONE HCL 2 MG/ML inj IV PRN (18:36)
--- NOTE | 2024-04-28 21:47 | P.PN ---
Date of Service: 04/28/24 Vital Signs Temp Pulse Resp BP Pulse Ox 98.6 F 84 18 119/62 98 04/28/24 16:00 04/28/24 16:00 04/28/24 19:06 04/28/24 16:00 04/28/24 19:06 Medications Docusate Sodium (Docusate Na 100 Mg Cap) 100 mg PO BID [facility] Last Admin: 04/28/24 08:44 Dose: 100 mg Epoetin Castro (Epoetin Castro 10,000 Unit/Ml Vial) 10,000 unit SQ MoWeFr@1700 [facility] Last Admin: 04/27/24 16:49 Dose: 10,000 unit Furosemide (Furosemide 40 Mg Tablet) 80 mg PO BIDL [facility] Last Admin: 04/28/24 16:38 Dose: Not Given Gabapentin (Gabapentin 100 Mg Cap) 100 mg PO TID [facility] Last Admin: 04/28/24 13:47 Dose: 100 mg Heparin Sodium (Porcine) (Heparin 1,000 Unit/Ml Vial) 6,000 unit IV EVERY HD PRN PRN Reason: FOR DIALYSIS CATHETER CARE Last Admin: 04/28/24 18:55 Dose: 6,000 unit Heparin Sodium (Porcine) (Heparin 1,000 Unit/Ml Vial) 4,000 unit IV EVERY HD PRN PRN Reason: Prevent HD System Clotting Last Admin: 04/27/24 11:27 Dose: 4,000 unit Hydromorphone HCl (Hydromorphone Oral 2 Mg Tab) 4 mg PO Q4H PRN PRN Reason: Pain scale 8-10 (Severe) Last Admin: 04/27/24 16:49 Dose: 4 mg Hydromorphone HCl (Hydromorphone Hcl 2 Mg/Ml Inj) 1 mg IV Q6H PRN PRN Reason: BREAKTHROUGH PAIN Last Admin: 04/28/24 18:36 Dose: 1 mg Meropenem 500 mg/ Sodium (Chloride) 100 mls @ 200 mls/hr IV Q24H [facility] Stop: 05/09/24 21:29 Last Admin: 04/27/24 20:20 Dose: 100 mls Vancomycin HCl 1 gm/ Sodium (Chloride) 250 mls @ 250 mls/hr IVPB AFTER EACH DIALYSIS [facility]; Protocol Sodium Chloride (Sodium Chloride) 500 mls @ 30 mls/hr IV .[id number] [facility] Last Admin: 04/27/24 08:28 Dose: Not Given Vancomycin HCl 1 gm/ Sodium (Chloride) 250 mls @ 250 mls/hr IVPB 1X [facility] Last Admin: 04/28/24 16:00 Dose: 250 mls Insulin Human Regular (Insulin Regular (Human) 100 Unit/Ml) 0 unit SQ ACHS [facility]; Protocol Last Admin: 04/28/24 16:16 Dose: Not Given Lactobacillus Acidoph/Bulgaricus (Lactobacillus/Acidophilus Tab) 1 tab PO TID [facility] Last Admin: 04/28/24 13:49 Dose: 1 tab Lidocaine (Lidocaine 4% Patch) 1 patch TOP DAILY [facility] Last Admin: 04/28/24 08:45 Dose: 1 patch Midodrine (Midodrine Hcl 5 Mg Tablet) 5 mg PO TID [facility] Last Admin: 04/28/24 16:21 Dose: 5 mg Nutritional Formula (Ensure High Protein 237 Ml Can) 237 ml PO BID [facility] Last Admin: 04/28/24 08:47 Dose: Not Given Pantoprazole Sodium (Pantoprazole 40mg Tablet) 40 mg PO DAILYAC [facility]; Protocol Last Admin: 04/28/24 06:37 Dose: 40 mg Scopolamine HBr (Scopolamine Hydrobromide Patch) 1 pat TD Q3D@0900 [facility] Last Admin: 04/27/24 08:28 Dose: Not Given Sevelamer Carbonate (Sevelamer Carbonate 800 Mg Tablet) 2,400 mg PO TIDWM [facility] Last Admin: 04/28/24 16:39 Dose: 2,400 mg Sucralfate (Sucralfate 1 Gm Tablet) 1 gm PO ACHS PRN PRN Reason: INDIGESTION Last Admin: 04/21/24 10:15 Dose: 1 gm Microbiology Results 04/11/24 16:20 Wound - Abscess Gram Stain - Final 04/11/24 16:20 Wound - Abscess Anaerobic Culture - Final NO ANAEROBES GROWN. 04/11/24 03:48 Blood - Blood Aerobic Blood Culture - Final No growth in 5 days. 04/11/24 03:48 Blood - Blood Anaerobic Blood Culture - Final No growth in 5 days. 04/11/24 03:25 Blood - Blood Aerobic Blood Culture - Final No growth in 5 days. 04/11/24 03:25 Blood - Blood Anaerobic Blood Culture - Final No growth in 5 days. 04/11/24 16:20 Wound - Abscess Gram Stain - Final 04/11/24 16:20 Wound - Abscess Culture & Sensitivity - Final No growth. Assessment/ Plan: Nephrology No dyspnea No chest pain Persistent right thigh pain Persistent hip and thigh edema No acute events overnight Vitals, medications, blood work and imaging reviewed in the chart Physical Examination General: Oriented x3, Cooperative HEENT: Atraumatic Neck: Supple Respiratory: Clear to auscultation bilaterally Cardiovascular: Regular rate/rhythm, Edema Gastrointestinal: Soft and benign, Non-distended Musculoskeletal: No clubbing, No contractures Integumentary: No rashes, No cyanosis, Tenderness/swelling Neurological: Normal speech Laboratory Data (last 24 hrs) 04/11/24 04/11/24 04/11/24 03:25 03:25 03:25 WBC 10.20 Hgb 9.1 L Hct 26.7 L Plt Count 357 PT 14.9 H INR 1.34 APTT 33.0 Sodium 126 L Potassium 4.5 BUN 56 H Creatinine 8.03 H Glucose 107 H Total Bilirubin 0.4 AST < 10 L ALT < 14 Alkaline Phosphatase 93 Imagings Data: EXAM DESCRIPTION: CT - Femur Right Wo Con - 04/11/2024 6:45 am CLINICAL HISTORY: Female, 48 years old, right thigh infection , extend ct to right thigh COMPARISON: 04/04/2024 TECHNIQUE: CT acquisition of the pelvis and right thigh without contrast. Coronal and sagittal reformatted images provided. This exam was performed according to departmental dose-optimization program which includes automated exposure control, adjustment of the mA and/or kV according to patient size, and/or use of iterative reconstruction technique. FINDINGS: Soft tissue characterization limited by lack of intravenous contrast. Exam is also limited by reformations only provided in bone algorithm, mild photon starvation, and portions of the posterolateral thigh outside of the field of view. Slight interval worsening in degree and extent of extensive subcutaneous soft tissue stranding throughout the right greater than left pelvis, in the right side. Asymmetric right thigh skin thickening is present. No evidence of fluid collection, deep fascial edema, or soft tissue gas. Intramuscular fat planes are preserved. Severe diffuse atherosclerosis. Small moderate volume of pelvic ascites, with partially imaged dialysis type catheter coiled in the left pelvis. No acute osseous finding, evidence of erosion or pathologic sclerosis. Mild degenerative changes of the lumbosacral spine, sacroiliac joints, hips and right knee. Small right knee joint effusion. IMPRESSION: 1. Slight interval worsening of diffuse edema and/or inflammatory stranding throughout the right pelvis and right thigh from prior CT, without appreciable fluid collection or soft tissue gas. 2. Pelvic ascites may be related to peritoneal dialysis. 3. Additional chronic and incidental findings above. 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 Suh
[2024-04-29] MEDS: HEPARIN 5000 UNIT/ML 1 ML VIAL ONE (00:52)
[2024-04-29] MEDS ORDERED: POLYETHYL GLY 3350 17 GM/DOSE PO ONE (06:17)
[2024-04-29 08:00] LABS: Hematocrit 25.7 % (36.0-45.0); Hemoglobin 8.4 g/dL (12.0-15.0); MCH 30.7 pg (27.0-35.0); MCHC 32.8 g/dL (32.0-36.0); MCV 93.7 fL (80-100); MPV 7.9 fL (7.6-11.3); Platelets 362 thou/uL (152-406); RBC Red Blood Cell Count 2.74 M/uL (3.86-4.86); Red Cell Distribution Width 16.4 % (12.1-15.2)
[2024-04-29 08:13] LABS: Anion Gap 7.8 mEq/L (5.0-15.0); Magnesium 1.8 mg/dL (1.6-2.4); Phosphorus 2.8 mg/dL (2.5-4.9); Potassium 3.8 mEq/L (3.5-5.1)
[2024-04-29] MEDS ORDERED: VANCOMYCIN 1 GM in NA CHLORIDE 0.9% 250 ML IVPB SCH (09:00)
[2024-04-29] MEDS: HEPARIN 5000 UNIT/ML 1 ML VIAL SQ SCH (09:05)
--- NOTE | 2024-04-29 10:57 | P.PN ---
Date of Service: 04/29/24 Subjective Leg swelling improving Able to get prosthetics on but they do not lock in to place yet Able to stand at bedside 04/28 with PT Awaiting [facility] clearance Using HD cath only for low flow/removing fluid PD still at night for renal replacement therapy If cleared at [facility] will not be able to have HD, only PD Would likely need HD cath removed prior to transfer to [facility]/[place] New midline placed 04/27, still on IV abx per ID through 05/09 ROS 10 point ROS as noted above, otherwise negative Physical Exam General: AAO x3, NAD, uncomfortable HEENT: Atraumatic, Normocephalic, PERRLA Neck: Supple, 2+ carotid pulse no bruit Respiratory: Nonlabored breathing, symmetrical chest wall movement, on room air Cardiovascular: Regular rate and rhythm, Normal S1 S2 present Capillary refill: <2 Seconds Gastrointestinal: Soft and benign on palpation, NT, distended (Obese), active bowel sounds Musculoskeletal: Erythema (right outer aspect of thigh), Tenderness (right outer ascept of thigh) Integumentary: Erythema (right outer ascept of thigh), Warmth (right outer ascept of thigh), Dressing CDI Neurological: Normal speech, Normal tone Vitals Reviewed Problem list Right lower extremity trauma/infection Prolonged QT/QTc Diabetes mellitusIDDM End-stage renal disease anemia of chronic disease History HTN/HLD History of depression History of bilateral BKA History of hypothyroidism History of CHF History of CAD with coronary stents Plan Right lower extremity trauma/infection Bilateral thigh cellulitis, calciphylaxis Diarrhea -Pain control Dilaudid p.o. and dilaudid IV -blood cultures- NGTD -wound cultures-no WBC or organisms seen -Consult Dr. Alvarado Merrem 500 IV and Vanc IV for four weeks (end date 05/09) after each dialysis -vanc dosing per pharmacy -bedtadine to bilateral thigh cellulitis, right thigh add petroleum gauze with island dressing -Dr. Lopez- I and D 04/11, now with wound vac in place -New midline placed 04/27 -HD cath placed evening 04/20 -Continue with HD/PD as ordered by nephrology -HD cath sluggish, ok for low flow use and fluid removal -Still doing PD at night -Compression stockings placed to FLOWER LE seem to help -Still having difficulty placing prosthetics significantly limiting her mobility -Very limited by her inability to put on her prosthetics -Working with PT doing bed exercises, able to stand and put on prosthetics but not lock in 04/28 Hypotensive-resolved Prolonged QT/QTc -QT/QTc 450/519 on repeat EKG 04/12 -Hold medications that prolongs QT -Midodrine started 04/16 Anemia of chronic disease received 1 unit PRBC 04/22 Diabetes mellitusIDDM -Accu-Check with sliding scale insulin End-stage renal disease Hyponatremia Hypocalcemia Anemia -H/H stable- continue to monitor -Transfuse PRN -Continue monitoring sodium and calcium -Started on HD inpatient with low flow for additional fluid removal -Nephrology following -Vancomycin and meropenem after each dialysis, vanc managed per pharmacy History HTN/HLD History of depression History of bilateral BKA History of hypothyroidism History of CHF History of CAD with coronary stents -Continue home medications -Continuous telemetry DVT PPx heparin subq Full code LOS 1-2 days Discharge Plan: SNF
[2024-04-30 05:44] LABS: Hematocrit 25.6 % (36.0-45.0); Hemoglobin 8.3 g/dL (12.0-15.0); MCH 30.5 pg (27.0-35.0); MCHC 32.6 g/dL (32.0-36.0); MCV 93.8 fL (80-100); Platelets 398 thou/uL (152-406); RBC Red Blood Cell Count 2.73 M/uL (3.86-4.86)
[2024-04-30] MEDS: ALBUMIN HUMAN 25% 100 ML IV SCH (10:00)
--- NOTE | 2024-04-30 10:22 | P.PN ---
Date of Service: 04/30/24 Vital Signs Temp Pulse Resp BP Pulse Ox 97.6 F 68 15 85/42 L 97 04/30/24 08:00 04/30/24 09:44 04/30/24 08:00 04/30/24 09:44 04/30/24 08:00 Medications Docusate Sodium (Docusate Na 100 Mg Cap) 100 mg PO BID [facility] Last Admin: 04/30/24 09:45 Dose: 100 mg Epoetin Castro (Epoetin Castro 10,000 Unit/Ml Vial) 10,000 unit SQ MoWeFr@1700 [facility] Last Admin: 04/27/24 16:49 Dose: 10,000 unit Furosemide (Furosemide 40 Mg Tablet) 80 mg PO BIDL [facility] Last Admin: 04/30/24 09:44 Dose: Not Given Gabapentin (Gabapentin 100 Mg Cap) 100 mg PO TID [facility] Last Admin: 04/30/24 09:44 Dose: 100 mg Heparin Sodium (Porcine) (Heparin 1,000 Unit/Ml Vial) 6,000 unit IV EVERY HD PRN PRN Reason: FOR DIALYSIS CATHETER CARE Last Admin: 04/28/24 18:55 Dose: 6,000 unit Heparin Sodium (Porcine) (Heparin 5000 Unit/Ml 1 Ml Vial) 5,000 unit SQ Q12HR [facility] Last Admin: 04/30/24 09:45 Dose: 5,000 unit Heparin Sodium (Porcine) (Heparin 1,000 Unit/Ml Vial) 5,000 unit IV EVERY HD PRN PRN Reason: Prevent HD System Clotting Hydromorphone HCl (Hydromorphone Oral 2 Mg Tab) 4 mg PO Q4H PRN PRN Reason: Pain scale 8-10 (Severe) Last Admin: 04/28/24 22:02 Dose: 4 mg Hydromorphone HCl (Hydromorphone Hcl 2 Mg/Ml Inj) 1 mg IV Q6H PRN PRN Reason: BREAKTHROUGH PAIN Last Admin: 04/30/24 07:14 Dose: 1 mg Meropenem 500 mg/ Sodium (Chloride) 100 mls @ 200 mls/hr IV Q24H [facility] Stop: 05/09/24 21:29 Last Admin: 04/29/24 20:06 Dose: 100 mls Vancomycin HCl 1 gm/ Sodium (Chloride) 250 mls @ 250 mls/hr IVPB AFTER EACH DIALYSIS [facility]; Protocol Sodium Chloride (Sodium Chloride) 500 mls @ 30 mls/hr IV .[id number] [facility] Last Admin: 04/30/24 03:20 Dose: Not Given Albumin Human (Albumin 25% 25 Gm) 100 mls @ 100 mls/hr IV 1X [facility] Stop: 04/30/24 10:59 Insulin Human Regular (Insulin Regular (Human) 100 Unit/Ml) 0 unit SQ ACHS [facility]; Protocol Last Admin: 04/30/24 07:30 Dose: Not Given Lactobacillus Acidoph/Bulgaricus (Lactobacillus/Acidophilus Tab) 1 tab PO TID [facility] Last Admin: 04/30/24 09:45 Dose: 1 tab Lidocaine (Lidocaine 4% Patch) 1 patch TOP DAILY [facility] Last Admin: 04/30/24 09:50 Dose: 1 patch Midodrine (Midodrine Hcl 5 Mg Tablet) 5 mg PO TID [facility] Last Admin: 04/30/24 09:45 Dose: 5 mg Midodrine (Midodrine Hcl 5 Mg Tablet) 5 mg PO 1X ONE Stop: 04/30/24 10:21 Nutritional Formula (Ensure High Protein 237 Ml Can) 237 ml PO BID [facility] Last Admin: 04/30/24 09:00 Dose: Not Given Pantoprazole Sodium (Pantoprazole 40mg Tablet) 40 mg PO DAILYAC [facility]; Protocol Last Admin: 04/30/24 06:24 Dose: 40 mg Scopolamine HBr (Scopolamine Hydrobromide Patch) 1 pat TD Q3D@0900 [facility] Last Admin: 04/27/24 08:28 Dose: Not Given Sevelamer Carbonate (Sevelamer Carbonate 800 Mg Tablet) 2,400 mg PO TIDWM [facility] Last Admin: 04/30/24 09:45 Dose: 2,400 mg Sucralfate (Sucralfate 1 Gm Tablet) 1 gm PO ACHS PRN PRN Reason: INDIGESTION Last Admin: 04/21/24 10:15 Dose: 1 gm Microbiology Results 04/11/24 16:20 Wound - Abscess Gram Stain - Final 04/11/24 16:20 Wound - Abscess Anaerobic Culture - Final NO ANAEROBES GROWN. 04/11/24 03:48 Blood - Blood Aerobic Blood Culture - Final No growth in 5 days. 04/11/24 03:48 Blood - Blood Anaerobic Blood Culture - Final No growth in 5 days. 04/11/24 03:25 Blood - Blood Aerobic Blood Culture - Final No growth in 5 days. 04/11/24 03:25 Blood - Blood Anaerobic Blood Culture - Final No growth in 5 days. 04/11/24 16:20 Wound - Abscess Gram Stain - Final 04/11/24 16:20 Wound - Abscess Culture & Sensitivity - Final No growth. Assessment/ Plan: Nephrology No dyspnea No chest pain Persistent right thigh pain She reports an improvement in her edema No acute events overnight Vitals, medications, blood work and imaging reviewed in the chart Physical Examination General: Oriented x3, Cooperative HEENT: Atraumatic Neck: Supple Respiratory: Clear to auscultation bilaterally Cardiovascular: Regular rate/rhythm, Edema Gastrointestinal: Soft and benign, Non-distended Musculoskeletal: No clubbing, No contractures Integumentary: No rashes, No cyanosis, Tenderness/swelling Neurological: Normal speech Laboratory Data (last 24 hrs) 04/11/24 04/11/24 04/11/24 03:25 03:25 03:25 WBC 10.20 Hgb 9.1 L Hct 26.7 L Plt Count 357 PT 14.9 H INR 1.34 APTT 33.0 Sodium 126 L Potassium 4.5 BUN 56 H Creatinine 8.03 H Glucose 107 H Total Bilirubin 0.4 AST < 10 L ALT < 14 Alkaline Phosphatase 93 Imagings Data: EXAM DESCRIPTION: CT - Femur Right Wo Con - 04/11/2024 6:45 am CLINICAL HISTORY: Female, 48 years old, right thigh infection , extend ct to right thigh COMPARISON: 04/04/2024 TECHNIQUE: CT acquisition of the pelvis and right thigh without contrast. Coronal and sagittal reformatted images provided. This exam was performed according to departmental dose-optimization program which includes automated exposure control, adjustment of the mA and/or kV according to patient size, and/or use of iterative reconstruction technique. FINDINGS: Soft tissue characterization limited by lack of intravenous contrast. Exam is also limited by reformations only provided in bone algorithm, mild photon starvation, and portions of the posterolateral thigh outside of the field of view. Slight interval worsening in degree and extent of extensive subcutaneous soft tissue stranding throughout the right greater than left pelvis, in the right side. Asymmetric right thigh skin thickening is present. No evidence of fluid collection, deep fascial edema, or soft tissue gas. Intramuscular fat planes are preserved. Severe diffuse atherosclerosis. Small moderate volume of pelvic ascites, with partially imaged dialysis type catheter coiled in the left pelvis. No acute osseous finding, evidence of erosion or pathologic sclerosis. Mild degenerative changes of the lumbosacral spine, sacroiliac joints, hips and right knee. Small right knee joint effusion. IMPRESSION: 1. Slight interval worsening of diffuse edema and/or inflammatory stranding throughout the right pelvis and right thigh from prior CT, without appreciable fluid collection or soft tissue gas. 2. Pelvic ascites may be related to peritoneal dialysis. 3. Additional chronic and incidental findings above. 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 Chapman
[2024-04-30] MEDS: MIDODRINE HCL 5 MG TABLET PO ONE (10:26)
--- NOTE | 2024-04-30 12:44 | PN ---
Subjective: The patient is lying in bed, feels better today. Denies any other problems. Objective: Vital signs: Reviewed. Lungs: Basal crackles. Heart: S1, S2. Regular. Abdomen: Soft, nontender. Bowel sounds present. Extremities: Right thigh region wounds noted with 100% granulation tissue surrounding purplish disco loration also noted. Left thigh has improved completely. Laboratory Data: Shows 11.7 WBC, hemoglobin 8.3, platelets 398. Chemistry shows a BUN of 28, creati nine 5. Assessment And Plan: The patient currently is on meropenem and vancomycin. We will recommend to con tinue antibiotic total of 4 weeks. Can be switched to Invanz on discharge. Continue supportive care . We will follow the patient as needed. Recommend to apply Xeroform to the wound dressing and mckay e wound dressings daily. We will follow the patient as needed. NF/MODL Voice ID: [id number] Report ID: [id number]
[2024-04-30] MEDS: CIPROFLOXACIN HCL 500 MG TAB PO SCH (15:02)
--- NOTE | 2024-04-30 18:30 | P.PN ---
Date of Service: 04/30/24 Subjective Appears more relaxed, did c/o pain in both legs Did have successful HD outputs but was unsuccessful today d/t unfunctional line SNF denied today she would like to return home once her prosthesis fit comfortably. continue with PD cath at night for renal replacement therapy ROS 10 point ROS as noted above, otherwise negative Physical Exam General: Alert and oriented x3, NAD HEENT: Atraumatic, Normocephalic, PERRLA Neck: Supple, 2+ carotid pulse no bruit Respiratory: symmetrical chest wall movement, bilaterally clear breath sounds, on room air Cardiovascular: RRR, Normal S1 S2, no gallop noted Capillary refill: <2 Seconds Gastrointestinal: Soft and benign on palpation, NT, distended (Obese), active bowel sounds Musculoskeletal: Erythema (right outer aspect of thigh), Tenderness (right outer ascept of thigh) Integumentary: Erythema (right outer ascept of thigh), Warmth (right outer ascept of thigh), Dressing CDI Neurological: Normal speech, Normal tone Vitals Reviewed Problem list Right lower extremity trauma/infection Prolonged QT/QTc Diabetes mellitusIDDM End-stage renal disease anemia of chronic disease History HTN/HLD History of depression History of bilateral BKA History of hypothyroidism History of CHF History of CAD with coronary stents Plan Right lower extremity trauma/infection Bilateral thigh cellulitis, calciphylaxis Diarrhea -Pain control Dilaudid p.o. and dilaudid IV -blood cultures- NGTD -wound cultures-no WBC or organisms seen -Consult Dr. Alvarado Merrem 500 IV and Vanc IV for four weeks (end date 05/09) after each dialysis -vanc dosing per pharmacy -bedtadine to bilateral thigh cellulitis, right thigh add petroleum gauze with island dressing -Dr. Lopez- I and D 04/11, wound vac stopped -New midline placed 04/27 -HD cath placed evening 04/20 -Continue with HD/PD as ordered by nephrology -HD cath not functioning,no cathflow per pharmacy, nephrology to manage -Still doing PD at night -Compression stockings placed to FLOWER LE seem to help -Still having difficulty placing prosthetics significantly limiting her mobility -Very limited by her inability to put on her prosthetics -Working with PT doing bed exercises, able to stand and put on prosthetics but not lock in 04/28 Hypotensive-resolved Prolonged QT/QTc -QT/QTc 450/519 on repeat EKG 04/12 -Hold medications that prolongs QT -Midodrine started 04/16 Anemia of chronic disease received 1 unit PRBC 04/22 Diabetes mellitusIDDM -Accu-Check with sliding scale insulin End-stage renal disease Hyponatremia Hypocalcemia Anemia -H/H stable- continue to monitor -Transfuse PRN -Continue monitoring sodium and calcium -Started on HD inpatient with low flow for additional fluid removal -Nephrology managing -Vancomycin and meropenem after each dialysis, vanc managed per pharmacy History HTN/HLD History of depression History of bilateral BKA History of hypothyroidism History of CHF History of CAD with coronary stents -Continue home medications -Continuous telemetry DVT PPx heparin subq Full code LOS 1-2 days Discharge Plan: home
[2024-04-30] MEDS: LINEZOLID 600 MG TAB PO SCH (20:47)
[2024-05-01 06:33] LABS: Hematocrit 27.9 % (36.0-45.0); Hemoglobin 8.7 g/dL (12.0-15.0); MCH 29.7 pg (27.0-35.0); MCHC 31.4 g/dL (32.0-36.0); MCV 94.5 fL (80-100); MPV 8.4 fL (7.6-11.3); Platelets 403 thou/uL (152-406); RBC Red Blood Cell Count 2.95 M/uL (3.86-4.86)
[2024-05-01 06:47] LABS: Anion Gap 11.4 mEq/L (5.0-15.0); Potassium 4.4 mEq/L (3.5-5.1)
--- NOTE | 2024-05-01 13:51 | P.PN ---
Date of Service: 05/01/24 Subjective Continues to complain of bilateral leg pain Reports feeling panic about discharge plans Prothesis continue to be a problem, she is a max assisted per physical therapy Dr. Lopez to remove TDC in the AM ROS 10 point ROS as noted above, otherwise negative Physical Exam General: AAO x3, NAD HEENT: Atraumatic, Normocephalic, PERRLA Neck: Supple, 2+ carotid pulse no bruit Respiratory: symmetrical chest wall movement, bilaterally clear breath sounds, on room air Cardiovascular: NSR, Normal S1 S2, no gallop noted Capillary refill: <2 Seconds Gastrointestinal: Soft on palpation, NT, distended (Obese), active bowel sounds Musculoskeletal: Erythema (right outer aspect of thigh), Tenderness (right outer ascept of thigh), edema improving Integumentary: Erythema (right outer ascept of thigh), Warmth (right outer ascept of thigh), Dressing CDI Neurological: Normal speech, Normal tone Vitals Reviewed Problem list Right lower extremity trauma/infection Prolonged QT/QTc Diabetes mellitusIDDM End-stage renal disease anemia of chronic disease History HTN/HLD History of depression History of bilateral BKA History of hypothyroidism History of CHF History of CAD with coronary stents Plan Right lower extremity trauma/infection Bilateral thigh cellulitis, calciphylaxis Diarrhea -Pain control Dilaudid p.o. and dilaudid IV -blood cultures- NGTD -wound cultures-no WBC or organisms seen -Consult Dr. Alvarado, change to antibiotic regimen to cipro and zyvox for a total of 4 weeks -stopped Merrem 500 IV and Vanc IV (originally for four weeks (end date 05/09) after each dialysis) -bedtadine to bilateral thigh cellulitis, right thigh add petroleum gauze with island dressing -Dr. Lopez- I and D 04/11, wound vac stopped -New midline placed 04/27 -HD cath placed evening 04/20, plan for removal in the AM 05/02 -Continue PD per nephrology -HD cath not functioning, no cathflow per pharmacy, nephrology to manage 04/30 -Compression stockings placed to FLOWER LE seem to help -Still having difficulty placing prosthetics, significantly limiting her mobility -Very limited by her inability to put on her prosthetics -Working with PT doing bed exercises, able to stand and put on prosthetics but not lock in 04/28 Hypotensive-resolved Prolonged QT/QTc -QT/QTc 450/519 on repeat EKG 04/12 -Hold medications that prolongs QT -Midodrine started 04/16 Anemia of chronic disease -received 1 unit PRBC 04/22 Diabetes mellitusIDDM -Accu-Check with sliding scale insulin End-stage renal disease Hyponatremia Hypocalcemia Anemia -H/H stable- continue to monitor -Transfuse PRN -Continue monitoring sodium and calcium -Started on HD inpatient with low flow for additional fluid removal, stopped 04/30 -Nephrology managing History HTN/HLD History of depression History of bilateral BKA History of hypothyroidism History of CHF History of CAD with coronary stents -Continue home medications -Continuous telemetry DVT PPx heparin subq Full code LOS 1-2 days Discharge Plan: home
--- NOTE | 2024-05-01 14:51 | PN ---
Subjective: The patient is lying in bed. No new acute event. Chart reviewed. Objective: Vital Signs: Reviewed. Lungs: Clear to auscultation. Heart: S1, S2. Regular. Abdomen: Soft, nontender. Bowel sounds present. Extremities: Wound noted. Laboratory Data: Reviewed. WBC 11.7, hemoglobin 8.7, platelets of 403. Assessment And Plan: Right leg ulceration with cellulitis. Continue Cipro and Zyvox total of 4 week s. We will follow the patient as needed. NF/MODL Voice ID: [id number] Report ID: [id number]
[2024-05-01] MEDS: ALBUMIN HUMAN 25% 200 ML IV ONE (19:35)
--- NOTE | 2024-05-01 21:05 | P.PN ---
Date of Service: 05/01/24 Vital Signs Temp Pulse Resp BP Pulse Ox 96.8 F 73 12 103/55 L 97 05/01/24 16:00 05/01/24 16:00 05/01/24 16:00 05/01/24 16:00 05/01/24 16:00 Medications Ciprofloxacin (Ciprofloxacin Hcl 500 Mg Tab) 500 mg PO DAILY [facility] Stop: 05/09/24 09:01 Last Admin: 05/01/24 08:24 Dose: 500 mg Docusate Sodium (Docusate Na 100 Mg Cap) 100 mg PO BID [facility] Last Admin: 05/01/24 08:23 Dose: 100 mg Epoetin Castro (Epoetin Castro 10,000 Unit/Ml Vial) 10,000 unit SQ MoWeFr@1700 [facility] Last Admin: 04/30/24 17:53 Dose: 10,000 unit Furosemide (Furosemide 40 Mg Tablet) 80 mg PO BIDL [facility] Last Admin: 05/01/24 16:27 Dose: 80 mg Gabapentin (Gabapentin 100 Mg Cap) 100 mg PO TID [facility] Last Admin: 05/01/24 14:03 Dose: 100 mg Heparin Sodium (Porcine) (Heparin 1,000 Unit/Ml Vial) 6,000 unit IV EVERY HD PRN PRN Reason: FOR DIALYSIS CATHETER CARE Last Admin: 04/28/24 18:55 Dose: 6,000 unit Heparin Sodium (Porcine) (Heparin 5000 Unit/Ml 1 Ml Vial) 5,000 unit SQ Q12HR [facility] Last Admin: 05/01/24 08:24 Dose: 5,000 unit Heparin Sodium (Porcine) (Heparin 1,000 Unit/Ml Vial) 5,000 unit IV EVERY HD PRN PRN Reason: Prevent HD System Clotting Hydromorphone HCl (Hydromorphone Hcl 2 Mg/Ml Inj) 1 mg IV Q6H PRN PRN Reason: BREAKTHROUGH PAIN Last Admin: 05/01/24 16:27 Dose: 1 mg Hydromorphone HCl (Hydromorphone Oral 4 Mg Tab) 4 mg PO Q4H PRN PRN Reason: Pain scale 8-10 (Severe) Sodium Chloride (Sodium Chloride) 500 mls @ 30 mls/hr IV .[id number] [facility] Last Admin: 04/30/24 20:49 Dose: 500 mls Insulin Human Regular (Insulin Regular (Human) 100 Unit/Ml) 0 unit SQ ACHS [facility]; Protocol Last Admin: 05/01/24 16:30 Dose: Not Given Lactobacillus Acidoph/Bulgaricus (Lactobacillus/Acidophilus Tab) 1 tab PO TID [facility] Last Admin: 05/01/24 14:04 Dose: 1 tab Lidocaine (Lidocaine 4% Patch) 1 patch TOP DAILY [facility] Last Admin: 05/01/24 08:23 Dose: 1 patch Linezolid (Linezolid 600 Mg Tab) 600 mg PO BID [facility] Stop: 05/09/24 21:01 Last Admin: 05/01/24 08:25 Dose: 600 mg Midodrine (Midodrine Hcl 5 Mg Tablet) 5 mg PO TID [facility] Last Admin: 05/01/24 14:03 Dose: 5 mg Nutritional Formula (Ensure High Protein 237 Ml Can) 237 ml PO BID [facility] Last Admin: 05/01/24 08:24 Dose: Not Given Pantoprazole Sodium (Pantoprazole 40mg Tablet) 40 mg PO DAILYAC [facility]; Protocol Last Admin: 05/01/24 06:37 Dose: 40 mg Scopolamine HBr (Scopolamine Hydrobromide Patch) 1 pat TD Q3D@0900 [facility] Last Admin: 04/30/24 09:00 Dose: Not Given Sevelamer Carbonate (Sevelamer Carbonate 800 Mg Tablet) 2,400 mg PO TIDWM [facility] Last Admin: 05/01/24 16:27 Dose: 2,400 mg Sucralfate (Sucralfate 1 Gm Tablet) 1 gm PO ACHS PRN PRN Reason: INDIGESTION Last Admin: 04/21/24 10:15 Dose: 1 gm Microbiology Results 04/11/24 16:20 Wound - Abscess Gram Stain - Final 04/11/24 16:20 Wound - Abscess Anaerobic Culture - Final NO ANAEROBES GROWN. 04/11/24 03:48 Blood - Blood Aerobic Blood Culture - Final No growth in 5 days. 04/11/24 03:48 Blood - Blood Anaerobic Blood Culture - Final No growth in 5 days. 04/11/24 03:25 Blood - Blood Aerobic Blood Culture - Final No growth in 5 days. 04/11/24 03:25 Blood - Blood Anaerobic Blood Culture - Final No growth in 5 days. 04/11/24 16:20 Wound - Abscess Gram Stain - Final 04/11/24 16:20 Wound - Abscess Culture & Sensitivity - Final No growth. Assessment/ Plan: Nephrology No dyspnea No chest pain Waxing and waning right thigh pain Hip/ thigh edema slowly improving No acute events overnight Vitals, medications, blood work and imaging reviewed in the chart Physical Examination General: Oriented x3, Cooperative HEENT: Atraumatic Neck: Supple Respiratory: Clear to auscultation bilaterally Cardiovascular: Regular rate/rhythm, Edema Gastrointestinal: Soft and benign, Non-distended Musculoskeletal: No clubbing, No contractures Integumentary: No rashes, No cyanosis, Tenderness/swelling Neurological: Normal speech Laboratory Data (last 24 hrs) 04/11/24 04/11/24 04/11/24 03:25 03:25 03:25 WBC 10.20 Hgb 9.1 L Hct 26.7 L Plt Count 357 PT 14.9 H INR 1.34 APTT 33.0 Sodium 126 L Potassium 4.5 BUN 56 H Creatinine 8.03 H Glucose 107 H Total Bilirubin 0.4 AST < 10 L ALT < 14 Alkaline Phosphatase 93 Imagings Data: EXAM DESCRIPTION: CT - Femur Right Wo Con - 04/11/2024 6:45 am CLINICAL HISTORY: Female, 48 years old, right thigh infection , extend ct to right thigh COMPARISON: 04/04/2024 TECHNIQUE: CT acquisition of the pelvis and right thigh without contrast. Coronal and sagittal reformatted images provided. This exam was performed according to departmental dose-optimization program which includes automated exposure control, adjustment of the mA and/or kV according to patient size, and/or use of iterative reconstruction technique. FINDINGS: Soft tissue characterization limited by lack of intravenous contrast. Exam is also limited by reformations only provided in bone algorithm, mild photon starvation, and portions of the posterolateral thigh outside of the field of view. Slight interval worsening in degree and extent of extensive subcutaneous soft tissue stranding throughout the right greater than left pelvis, in the right side. Asymmetric right thigh skin thickening is present. No evidence of fluid collection, deep fascial edema, or soft tissue gas. Intramuscular fat planes are preserved. Severe diffuse atherosclerosis. Small moderate volume of pelvic ascites, with partially imaged dialysis type catheter coiled in the left pelvis. No acute osseous finding, evidence of erosion or pathologic sclerosis. Mild degenerative changes of the lumbosacral spine, sacroiliac joints, hips and right knee. Small right knee joint effusion. IMPRESSION: 1. Slight interval worsening of diffuse edema and/or inflammatory stranding throughout the right pelvis and right thigh from prior CT, without appreciable fluid collection or soft tissue gas. 2. Pelvic ascites may be related to peritoneal dialysis. 3. Additional chronic and incidental findings above. 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 Rosa
[2024-05-02 09:49] LABS: Hematocrit 25.8 % (36.0-45.0); Hemoglobin 8.2 g/dL (12.0-15.0); MCH 29.6 pg (27.0-35.0); MCHC 31.7 g/dL (32.0-36.0); MCV 93.4 fL (80-100); MPV 8.3 fL (7.6-11.3); Platelets 395 thou/uL (152-406); RBC Red Blood Cell Count 2.76 M/uL (3.86-4.86)
[2024-05-02 10:48] LABS: Albumin/Globulin Ratio 0.5 (1.1-1.8); Alkaline Phosphatase 92 U/L (45-117); Anion Gap 12.5 mEq/L (5.0-15.0); BUN Blood Urea Nitrogen 34 mg/dL (7-18); Bicarbonate 26 mEq/L (21-32); Bilirubin Direct 0.3 mg/dL (0-0.2); Bilirubin Indirect, Calculated 0.3 mg/dL (0.2-0.8); Bilirubin Total 0.6 mg/dL (0.2-1.0); Globulin 4.4 g/dL (2.3-3.5); Glomerular Filtration Rate 9 ml/min (=/>90); Glucose Level 160 mg/dL (74-106); Magnesium 1.8 mg/dL (1.6-2.4); Phosphorus 4.7 mg/dL (2.5-4.9); Potassium 4.5 mEq/L (3.5-5.1); Protein, Total 6.4 g/dL (6.4-8.2); Sodium Level 132 mEq/L (136-145)
[2024-05-02 10:55] LABS: ALT/SGPT < 14 U/L (13-56); AST/SGOT < 10 U/L (15-37)
[2024-05-02] MEDS: HYDROMORPHONE HCL 2 MG/ML inj ONE (13:00)
--- NOTE | 2024-05-02 13:12 | P.PN ---
Brief renal note Unable to see pt as out of room reportedly for removal of non functioning temp HD catheter. Will review plan of care with Dr. Suh who has been seeing her over the past 1.5 weeks
[2024-05-02] MEDS ORDERED: propofoL 200 MG/20 ML VIAL IV ONE (13:19)
[2024-05-02] MEDS ORDERED: LIDOCAINE 1% MPF 5 ML VIAL ONE (13:19)
[2024-05-02] MEDS ORDERED: MIDAZOLAM HCL 2 MG/2 ML INJ ONE (13:19)
[2024-05-02] MEDS: LIDOCAINE HCL/EPINEPHRINE 20 ML MDV ONE (13:32)
[2024-05-02] MEDS ORDERED: GLYCOPYRROLATE 0.2 MG/ML SYR ONE (13:40)
[2024-05-02] MEDS ORDERED: NEOSTIGMINE 1 MG/ML -10 ML VIAL ONE (13:40)
--- NOTE | 2024-05-02 14:10 | P.OP ---
Preoperative diagnosis: Attention to HD Catheter Postoperative diagnosis: Attention to HD Catheter Primary procedure: REmoval of Tunneled LEFT internal jugular hemodialysis catheter Anesthesia: GETA Estimated blood loss: <1cc Specimen: Catheter Findings: clot @ tip Complications: None Transferred to: Recovery Room Condition: Good
--- NOTE | 2024-05-02 18:27 | OP ---
Date of Procedure: 05/02/2024 Surgeon: Binh Lopez MD, Preoperative Diagnosis: Attention to hemodialysis catheter. Postoperative Diagnosis: Attention to hemodialysis catheter. Procedure Performed: Removal of tunneled left internal jugular hemodialysis catheter. Anesthesia: General endotracheal. Estimated Blood Loss: Less than 1 cc. Specimen: Catheter. Findings: Clot at the tip of the catheter was appreciated. Complications: None. Disposition: Patient transferred to recovery room in good condition. Procedure In Detail: After informed consent was obtained, patient was brought to the operating room, prepped and draped in the usual sterile fashion. After adequate anesthesia was achieved, the patien t was placed in steep Trendelenburg position. Previously placed sutures were removed at this time, s ent on the back table. The area was cleansed and then the patient remained in steep Trendelenburg wh ile I pulled the catheter out, which came out quite easily without any need for additional dissection . The catheter was removed, at this point. Pressure was held at the insertion site and at the exit site. The patient was then brought in head up position. The area was copiously irrigated and closed with a [id number] 3-0 nylon suture and a sterile dressing placed over top. The patient tolerat ed the procedure well without incident or complication, transferred to PACU in good condition. All counts were correc t at the end of the case. JOANNA/CHECO Voice ID: [id number] Report ID: [id number]
--- NOTE | 2024-05-02 18:36 | P.PN ---
Date of Service: 05/02/24 Subjective Sleeping this morning Plan for TDC removal Continues to wear compression to bilateral thighs and attempt to use prosthesis Decisions concerning the need for HD and administration of Sodium thiosulfate will be addressed this week and prior to discharge ROS 10 point ROS as noted above, otherwise negative Physical Exam General: sleeping but easily awakes, oriented x3, NAD HEENT: Atraumatic, Normocephalic, PERRLA Neck: Supple, 2+ carotid pulse no bruit Respiratory: nonlabored breathing, bilaterally clear breath sounds, on room air Cardiovascular: Normal sinus rhythm, Normal S1 S2 Capillary refill: <2 Seconds Gastrointestinal: Soft on palpation, NT, distended (Obese), active bowel sounds Musculoskeletal: Erythema (right outer aspect of thigh), Tenderness (right outer ascept of thigh), edema improving, bilateral BKA Integumentary: Erythema (right outer ascept of thigh), Warmth (right outer ascept of thigh), Dressing CDI Neurological: Normal speech, Normal tone Vitals Reviewed Problem list Right lower extremity trauma/infection Prolonged QT/QTc Diabetes mellitusIDDM End-stage renal disease anemia of chronic disease History HTN/HLD History of depression History of bilateral BKA History of hypothyroidism History of CHF History of CAD with coronary stents Plan Right lower extremity trauma/infection Bilateral thigh cellulitis, calciphylaxis Diarrhea -Pain control Dilaudid p.o. and dilaudid IV -blood cultures- NGTD -wound cultures-no WBC or organisms seen -Consult Dr. Alvarado, change to antibiotic regimen to cipro and zyvox for a total of 4 weeks -stopped Merrem 500 IV and Vanc IV (originally for four weeks (end date 05/09) after each dialysis) -bedtadine to bilateral thigh cellulitis, right thigh add petroleum gauze with island dressing -Dr. Lopez- I and D 04/11, wound vac stopped -New midline placed 04/27 -HD cath placed evening 04/20, plan for removal in the AM 05/02 -Continue PD per nephrology -HD cath not functioning, no cathflow per pharmacy, nephrology to manage 04/30 -Compression stockings placed to FLOWER LE seem to help -Still having difficulty placing prosthetics, significantly limiting her mobility -Very limited by her inability to put on her prosthetics -Working with PT doing bed exercises, able to stand and put on prosthetics but not lock in 04/28 Hypotensive-resolved Prolonged QT/QTc -QT/QTc 450/519 on repeat EKG 04/12 -Hold medications that prolongs QT -Midodrine started 04/16 Anemia of chronic disease -received 1 unit PRBC 04/22 Diabetes mellitusIDDM -Accu-Check with sliding scale insulin End-stage renal disease Hyponatremia Hypocalcemia Anemia -H/H stable- continue to monitor -Transfuse PRN -Continue monitoring sodium and calcium -Started on HD inpatient with low flow for additional fluid removal, stopped 04/30 -Nephrology managing History HTN/HLD History of depression History of bilateral BKA History of hypothyroidism History of CHF History of CAD with coronary stents -Continue home medications -Continuous telemetry DVT PPx heparin subq Full code LOS 1-2 days Discharge Plan: TBD
[2024-05-02] MEDS: NA CHLORIDE 0.9% 500 ML ONE (21:32)
[2024-05-03] MEDS: HYDROMORPHONE ORAL 4 MG TAB PO PRN (05:58)
[2024-05-03 07:44] LABS: Hematocrit 27.5 % (36.0-45.0); Hemoglobin 8.9 g/dL (12.0-15.0); MCHC 32.2 g/dL (32.0-36.0); MPV 8.1 fL (7.6-11.3); Platelets 401 thou/uL (152-406); RBC Red Blood Cell Count 2.96 M/uL (3.86-4.86)
[2024-05-03 07:48] LABS: Anion Gap 13.4 mEq/L (5.0-15.0); Magnesium 1.6 mg/dL (1.6-2.4); Phosphorus 4.4 mg/dL (2.5-4.9); Potassium 4.4 mEq/L (3.5-5.1)
--- NOTE | 2024-05-03 20:59 | P.PN ---
Date of Service: 05/03/24 Subjective Awake and comfortable HR 67, BP 113/63 medication error, will continue to monitor ROS 10 point ROS as noted above, otherwise negative Physical Exam General: AAO x3, NAD, comfortable HEENT: Atraumatic, Normocephalic, PERRLA Neck: Supple, 2+ carotid pulse no bruit Respiratory: Symmetrical chest wall movement, bilaterally clear breath sounds, on room air Cardiovascular: S1 S2 present, RRR, Capillary refill: <2 Seconds Gastrointestinal: Soft on palpation, NT, distended (Obese), active bowel sounds Musculoskeletal: Erythema (right outer aspect of thigh), Tenderness (right outer ascept of thigh), edema improving, bilateral BKA Integumentary: Erythema (right outer ascept of thigh), Warmth (right outer ascept of thigh), Dressing CDI Neurological: Normal speech, Normal tone Vitals Reviewed Problem list Right lower extremity trauma/infection Prolonged QT/QTc Diabetes mellitusIDDM End-stage renal disease anemia of chronic disease History HTN/HLD History of depression History of bilateral BKA History of hypothyroidism History of CHF History of CAD with coronary stents Plan Right lower extremity trauma/infection Bilateral thigh cellulitis, calciphylaxis Diarrhea -Pain control Dilaudid p.o. and dilaudid IV -blood cultures- NGTD -wound cultures-no WBC or organisms seen -Consult Dr. Alvarado, change to antibiotic regimen to cipro and zyvox for a total of 4 weeks -stopped Merrem 500 IV and Vanc IV (originally for four weeks (end date 05/09) after each dialysis) -bedtadine to bilateral thigh cellulitis, right thigh add petroleum gauze with island dressing -Dr. Lopez- I and D 04/11, wound vac stopped -New midline placed 04/27 -HD cath placed evening 04/20, plan for removal in the AM 05/02 -Continue PD per nephrology -HD cath not functioning, no cathflow per pharmacy, nephrology to manage 04/30 -Compression stockings placed to FLOWER LE seem to help -Still having difficulty placing prosthetics, significantly limiting her mobility -Very limited by her inability to put on her prosthetics -Working with PT doing bed exercises, able to stand and put on prosthetics but not lock in 04/28 Medication error -incorrect dialudid dose - continuous telemetry - blood pressure WNL -On examination, no obvious distress, Regular rate and rhythm -Hold next dilaudid doses Hypotensive-resolved Prolonged QT/QTc -QT/QTc 450/519 on repeat EKG 04/12 -Hold medications that prolongs QT -Midodrine started 04/16 Anemia of chronic disease -received 1 unit PRBC 04/22 Diabetes mellitusIDDM -Accu-Check with sliding scale insulin End-stage renal disease Hyponatremia Hypocalcemia Anemia -H/H stable- continue to monitor -Transfuse PRN -Continue monitoring sodium and calcium -Started on HD inpatient with low flow for additional fluid removal, stopped 04/30 -Nephrology managing History HTN/HLD History of depression History of bilateral BKA History of hypothyroidism History of CHF History of CAD with coronary stents -Continue home medications -Continuous telemetry DVT PPx heparin subq Full code LOS 1-2 days Discharge Plan: TBD
--- NOTE | 2024-05-03 21:50 | P.PN ---
Date of Service: 05/03/24 Vital Signs Temp Pulse Resp BP Pulse Ox 97.5 F 68 18 136/58 L 100 05/03/24 16:00 05/03/24 16:00 05/03/24 21:10 05/03/24 16:00 05/03/24 21:10 Medications Ciprofloxacin (Ciprofloxacin Hcl 500 Mg Tab) 500 mg PO DAILY [facility] Stop: 05/09/24 09:01 Last Admin: 05/03/24 09:25 Dose: 500 mg Docusate Sodium (Docusate Na 100 Mg Cap) 100 mg PO BID [facility] Last Admin: 05/03/24 21:10 Dose: 100 mg Epoetin Castro (Epoetin Casrto 10,000 Unit/Ml Vial) 10,000 unit SQ MoWeFr@1700 [facility] Last Admin: 05/02/24 17:56 Dose: 10,000 unit Furosemide (Furosemide 40 Mg Tablet) 80 mg PO BIDL [facility] Last Admin: 05/03/24 16:54 Dose: 80 mg Gabapentin (Gabapentin 100 Mg Cap) 100 mg PO TID [facility] Last Admin: 05/03/24 21:10 Dose: 100 mg Heparin Sodium (Porcine) (Heparin 1,000 Unit/Ml Vial) 6,000 unit IV EVERY HD PRN PRN Reason: FOR DIALYSIS CATHETER CARE Last Admin: 04/28/24 18:55 Dose: 6,000 unit Heparin Sodium (Porcine) (Heparin 5000 Unit/Ml 1 Ml Vial) 5,000 unit SQ Q12HR [facility] Last Admin: 05/03/24 21:10 Dose: 5,000 unit Heparin Sodium (Porcine) (Heparin 1,000 Unit/Ml Vial) 5,000 unit IV EVERY HD PRN PRN Reason: Prevent HD System Clotting Hydromorphone HCl (Hydromorphone Hcl 2 Mg/Ml Inj) 1 mg IV Q6H PRN PRN Reason: BREAKTHROUGH PAIN Last Admin: 05/02/24 21:10 Dose: 1 mg Hydromorphone HCl (Hydromorphone Oral 4 Mg Tab) 4 mg PO Q4H PRN PRN Reason: Pain scale 8-10 (Severe) Last Admin: 05/03/24 21:10 Dose: 4 mg Sodium Chloride (Sodium Chloride) 500 mls @ 30 mls/hr IV .[id number] [facility] Last Admin: 05/02/24 22:00 Dose: 500 mls Insulin Human Regular (Insulin Regular (Human) 100 Unit/Ml) 0 unit SQ ACHS [facility]; Protocol Last Admin: 05/03/24 21:00 Dose: Not Given Lactobacillus Acidoph/Bulgaricus (Lactobacillus/Acidophilus Tab) 1 tab PO TID [facility] Last Admin: 05/03/24 21:10 Dose: 1 tab Lidocaine (Lidocaine 4% Patch) 1 patch TOP DAILY [facility] Last Admin: 05/03/24 09:24 Dose: 1 patch Linezolid (Linezolid 600 Mg Tab) 600 mg PO BID [facility] Stop: 05/09/24 21:01 Last Admin: 05/03/24 21:10 Dose: 600 mg Midodrine (Midodrine Hcl 5 Mg Tablet) 5 mg PO TID [facility] Last Admin: 05/03/24 21:10 Dose: 5 mg Nutritional Formula (Ensure High Protein 237 Ml Can) 237 ml PO BID [facility] Last Admin: 05/03/24 21:00 Dose: Not Given Pantoprazole Sodium (Pantoprazole 40mg Tablet) [facility]; Protocol Last Admin: 05/03/24 05:57 Dose: 40 mg Scopolamine HBr (Scopolamine Hydrobromide Patch) 1 pat TD Q3D@0900 [facility] Last Admin: 05/03/24 09:26 Dose: 1 pat Sevelamer Carbonate (Sevelamer Carbonate 800 Mg Tablet) 2,400 mg PO TIDWM [facility] Last Admin: 05/03/24 16:54 Dose: 2,400 mg Silver Sulfadiazine (Silver Sulfadiazine 1% 50 Gm) 1 appl TOP DAILY [facility] Sucralfate (Sucralfate 1 Gm Tablet) [address] [facility] PRN PRN Reason: INDIGESTION Last Admin: 04/21/24 10:15 Dose: 1 gm Microbiology Results 04/11/24 16:20 Wound - Abscess Gram Stain - Final 04/11/24 16:20 Wound - Abscess Anaerobic Culture - Final NO ANAEROBES GROWN. 04/11/24 03:48 Blood - Blood Aerobic Blood Culture - Final No growth in 5 days. 04/11/24 03:48 Blood - Blood Anaerobic Blood Culture - Final No growth in 5 days. 04/11/24 03:25 Blood - Blood Aerobic Blood Culture - Final No growth in 5 days. 04/11/24 03:25 Blood - Blood Anaerobic Blood Culture - Final No growth in 5 days. 04/11/24 16:20 Wound - Abscess Gram Stain - Final 04/11/24 16:20 Wound - Abscess Culture & Sensitivity - Final No growth. Assessment/ Plan: Nephrology No dyspnea No chest pain She reports improvement today and was able to walk with her prosthetics; weakness No acute events overnight Vitals, medications, blood work and imaging reviewed in the chart Physical Examination General: Oriented x3, Cooperative HEENT: Atraumatic Neck: Supple Respiratory: Clear to auscultation bilaterally Cardiovascular: Regular rate/rhythm, Edema Gastrointestinal: Soft and benign, Non-distended Musculoskeletal: No clubbing, No contractures Integumentary: No rashes, No cyanosis, Tenderness/swelling Neurological: Normal speech Laboratory Data (last 24 hrs) 04/11/24 04/11/24 04/11/24 03:25 03:25 03:25 WBC 10.20 Hgb 9.1 L Hct 26.7 L Plt Count 357 PT 14.9 H INR 1.34 APTT 33.0 Sodium 126 L Potassium 4.5 BUN 56 H Creatinine 8.03 H Glucose 107 H Total Bilirubin 0.4 AST < 10 L ALT < 14 Alkaline Phosphatase 93 Imagings Data: EXAM DESCRIPTION: CT - Femur Right Wo Con - 04/11/2024 6:45 am CLINICAL HISTORY: Female, 48 years old, right thigh infection , extend ct to right thigh COMPARISON: 04/04/2024 TECHNIQUE: CT acquisition of the pelvis and right thigh without contrast. Coronal and sagittal reformatted images provided. This exam was performed according to departmental dose-optimization program which includes automated exposure control, adjustment of the mA and/or kV according to patient size, and/or use of iterative reconstruction technique. FINDINGS: Soft tissue characterization limited by lack of intravenous contrast. Exam is also limited by reformations only provided in bone algorithm, mild photon starvation, and portions of the posterolateral thigh outside of the field of view. Slight interval worsening in degree and extent of extensive subcutaneous soft tissue stranding throughout the right greater than left pelvis, in the right macey e. Asymmetric right thigh skin thickening is present. No evidence of fluid collection, deep fascial edema, or soft tissue gas. Intramuscular fat planes are preserved. Severe diffuse atherosclerosis. Small moderate volume of pelvic ascites, with partially imaged dialysis type catheter coiled in the left pelvis. No acute osseous finding, evidence of erosion or pathologic sclerosis. Mild degenerative changes of the lumbosacral spine, sacroiliac joints, hips and right knee. Small right knee joint effusion. IMPRESSION: 1. Slight interval worsening of diffuse edema and/or inflammatory stranding throughout the right pelvis and right thigh from prior CT, without appreciable fluid collection or soft tissue gas. 2. Pelvic ascites may be related to peritoneal dialysis. 3. Additional chronic and incidental findings above. Conclusions/Impression: ESRD on PD -Continue PD Orthostatic Hypotension -Continue Midodrine Systolic Diastolic CHF, chronic Peripheral Edema -PD with UF -Lasix BID -Continue compression stockings/ keyur bandages -Low sodium diet Hypoalbuminemia -IV Albumin X1 -Continue Nepro Anemia in CKD -Retacrit TIW CKD MBD -Renvela TID Right thigh hematoma with possible traumatic calciphylaxis complicated by severe pain -Renal diet -Renvela TID -Recommend Sodium thiosulfate TIW Hospitalist note reviewed Case reviewed with Dr. Rosa
[2024-05-03] MEDS: ALBUMIN HUMAN 25% 100 ML IV ONE (22:31)
[2024-05-04 04:14] VITALS: O2SAT 97
[2024-05-04 07:29] LABS: Magnesium 1.6; Phosphorus 4.3 mg/dL (2.5-4.9)
--- NOTE | 2024-05-04 08:52 | P.DS ---
Admission Date: 04/12/24 Discharge Date: 05/04/24 Disposition: ROUTINE DISCHARGE Discharge Condition: GOOD Reason for Admission: Cellulitits to right thight Brief History of Present Illness: Diagnosis Right lower extremity trauma/infection Bilateral thigh cellulitis, calciphylaxis Diarrhea Hypotension-resolved Prolonged QT/QTc Diabetes mellitusIDDM End-stage renal disease Hyponatremia Hypocalcemia anemia of chronic disease History HTN/HLD History of depression History of bilateral BKA History of hypothyroidism History of CHF History of CAD with coronary stents [facility] 04/11/24 Keiry Umaña is a 48 year old female with Pmhx Hypertension, hyperlipidemia, diabetes mellitusIDDM, depression, end-stage renal disease (peritoneal dialysis), bilateral BKA who presents to the ED with chief complaint of right thigh trauma/severe pain. She was recently discharged after IV antibiotics to continue PO antibiotic therapy at home with doxycycline and levaquin. She was discharged on Oral dilaudid x 30 tablets. She continues to have severe pain and increased painful area to her right posterior thigh. She reports taking Eliquis, last dose yesterday morning 04/10/2024. Keiry will be admitted to hospitalist service for increased tightness and bruising to right outer thigh. Dr. Lopez, Dr. Alvarado Hospital Course: Keiry Umaña is a pleasant 48 year old female with a past medical history significant for Hypertension, hyperlipidemia, diabetes mellitusIDDM, depression, end-stage renal disease (peritoneal dialysis), bilateral BKA who was admitted to the [facility] on 04/11/24 for increased tightness and bruising to right lower aspect of thigh. Keiry Umaña was re-admitted for continued right leg swelling, tightness, and uncontrollable pain. This hospitalization was complicated and lengthy. Dr. Suh, Dr. Alvarado, and Dr. Lopez were consulted. Dr. Lopez performed and incision and drainage on her right outer thigh 04/11/24, She reported some pressure was removed after surgery and felt immediately better. As her hospitalization progressed, The edema to her bilateral legs continued and the pain heightened. Multiple medications were tried to help with her pain management. It was determined she was experiencing calciphylaxis. Dr. Suh performed 6 days of hemodialysis with nightly PD. The swelling in her bilateral thighs decreased significantly with Dr. Lopez's wrapping her legs with compression, elevation, and hemodialysis. She worked with physical therapy to help her fit into her prosthesis and strengthen herself to walk again. Dr. Alvarado guided the antibiotic course, she has tolerated merrem and vancomycin after each PD and recommended discharge with ciprofloxacin and zyvox. On 05/04/24, Keiry was seen on morning rounds and deemed medically stable for discharge home with home health. Keiry was discharged with instructions to schedule follow-up appointments with PCP and Dr. Suh. Keiry was provided prescriptions for Dilaudid, ciprofloxacin, gabapentin, Lasix, midodrine, Protonix, Renvela, and Zyvox. Physical Exam General: Alert and oriented x3, no acute distress, comfortable HEENT: Atraumatic, Normocephalic, PERRLA Neck: Supple, 2+ carotid pulse no bruit Respiratory: bilaterally clear breath sounds, unlabored breathing, on room air Cardiovascular: S1 S2 present, normal sinus rhythm Capillary refill: <2 Seconds Gastrointestinal: Soft on palpation, NT, distended (Obese), active bowel sounds Musculoskeletal: Erythema (right outer aspect of thigh), Tenderness (right outer ascept of thigh), edema improving, bilateral BKA Integumentary: Erythema (right outer ascept of thigh), Warmth (right outer ascept of thigh), Dressing CDI Neurological: Normal speech, Normal tone Vital Signs/Physical Exam: Temp Pulse Resp BP Pulse Ox 98.0 F 68 16 137/70 97 05/04/24 04:00 05/04/24 04:00 05/04/24 04:00 05/04/24 04:00 05/04/24 04:00 Laboratory Data at Discharge: WBC 9.40 thou/uL (4.3-10.9) 05/03/24 07:20 Hgb 8.9 g/dL (12.0-15.0) L D 05/03/24 07:20 Hct 27.5 % (36.0-45.0) L 05/03/24 07:20 Plt Count 401 thou/uL (152-406) 05/03/24 07:20 PT 14.9 SECONDS (9.4-12.5) H 04/11/24 03:25 INR 1.34 04/11/24 03:25 APTT 33.0 SECONDS (24.3-36.9) 04/11/24 03:25 Sodium 135 mEq/L (136-145) L 05/03/24 07:20 Potassium 4.4 mEq/L (3.5-5.1) 05/03/24 07:20 BUN 32 mg/dL (7-18) H 05/03/24 07:20 Creatinine 5.47 mg/dL (0.55-1.02) H 05/03/24 07:20 Glucose 129 mg/dL (74-106) H 05/03/24 07:20 Phosphorus 4.3 mg/dL (2.5-4.9) 05/04/24 06:38 Magnesium 1.6 05/04/24 06:38 Total Bilirubin 0.6 mg/dL (0.2-1.0) 05/02/24 09:36 AST < 10 U/L (15-37) L 05/02/24 09:36 ALT < 14 U/L (13-56) 05/02/24 09:36 Alkaline Phosphatase 92 U/L (45-117) 05/02/24 09:36 Home Medications: Apixaban [Eliquis] 5 mg PO BID 04/05/24 Atorvastatin Calcium [Lipitor] 40 mg PO BEDTIME 04/05/24 Furosemide [Lasix] 80 mg PO BID 04/05/24 Levothyroxine Sodium [Synthroid] 50 mcg PO DAILY 04/05/24 Sacubitril/Valsartan [Entresto 24 mg-26 mg Tablet] 1 tab PO BID 04/05/24 Calcitrol [Rocaltrol*] 0.5 mcg PO DAILY #60 cap 04/06/24 Vitamin D [Drisdol*] 50,000 unit PO Q48H cap 04/06/24 Docusate [Colace Cap*] 100 mg PO BID PRN 04/28/24 Hydromorphone HCl 4 mg PO Q6H PRN 04/28/24 Sevelamer Carbonate [Renvela*] 2,400 mg PO TIDWM 04/28/24 Ciprofloxacin HCl [Cipro 500 MG Tablet] 500 mg PO DAILY 6 Days #6 tab 05/04/24 Ensure High Protein 237 ml PO BID can 05/04/24 Epoetin [Retacrit] 10,000 unit SQ MoWeFr@1700 vial 05/04/24 Furosemide [Lasix*] 80 mg PO BIDL tab 05/04/24 Furosemide [Lasix] 80 mg PO BID #60 tab 05/04/24 Gabapentin 100 mg PO TID 30 Days #90 tab 05/04/24 Gabapentin [Neurontin*] 100 mg PO TID cap 05/04/24 Hydromorphone [Dilaudid] 2 mg PO Q6HP PRN #20 tab 05/04/24 Linezolid [Zyvox*] 600 mg PO BID 7 Days #13 tab 05/04/24 Midodrine HCl [Proamatine*] 5 mg PO TID 30 Days #90 tab 05/04/24 Pantoprazole Sodium [Protonix] 40 mg PO DAILY 30 Days #30 tab 05/04/24 Pantoprazole [Protonix Tab*] 40 mg PO DAILYAC tab 05/04/24 Sevelamer Carbonate [Renvela*] 2,400 mg PO TIDWM 05/04/24 Sevelamer Carbonate [Renvela] 800 mg PO TID 30 Days #90 tab 05/04/24 New Medications: Hydromorphone [Dilaudid] 2 mg PO Q6HP PRN #20 tab PRN Reason: Pain Ciprofloxacin HCl [Cipro 500 MG Tablet] 500 mg PO DAILY 6 Days #6 tab Gabapentin 100 mg PO TID 30 Days #90 tab Furosemide [Lasix] 80 mg PO BID #60 tab Midodrine HCl [Proamatine*] 5 mg PO TID 30 Days #90 tab Pantoprazole Sodium [Protonix] 40 mg PO DAILY 30 Days #30 tab Sevelamer Carbonate [Renvela] 800 mg PO TID 30 Days #90 tab Linezolid [Zyvox*] 600 mg PO BID 7 Days #13 tab Physician Discharge Instructions: Please continue to wear the compression stockings or keyur bandages for both thighs and elevate when in bed to keep swelling down Follow up with Dr. Suh for continued dialysis management and discussions concerning hemodialysis. This can be accomplished outpatient. Continue to take the antibiotics prescribed below. 1. Please call and schedule a follow-up appointment with your PCP in 3-5 days - Please follow-up with your PCP for medication refills/adjustments 2. Please call and schedule a follow-up appointment with Dr. Aglieco in 3-5 days 3. Continue renal diet with low phosphorus and fluid restriction of 1200 mL/day 4. activity restrictions fall precaution 5. Return to the ED if symptoms worsen New medications Ciprofloxacin 500 mg p.o. daily x 6 days Zyvox 600 mg p.o. twice daily x 7 days wound care instructions: Right outer aspect of thigh: gauze soaked with sterile normal saline, absorbant pad Left outer aspect of thigh: cleanse with normal saline, apply xeroform, and foam dressing Left lower buttock skin tear and sacrum: cleanse with normal saline apply allevyn Compression stockings to FLOWER LE Followup: Richard Suh DO [ACTIVE - CAN ADMIT] - Binh Lopez MD [ACTIVE - CAN ADMIT] - Akira Suero FNP [Primary Care Provider] -
[2024-05-04] MEDS: SILVER SULFADIAZINE 1% 50 GM TOP SCH (09:00)
[2024-05-04] MEDS: PROMETHAZINE INJ 25 MG/ML AMP IV ONE (10:48)
--- NOTE | 2024-05-04 11:30 | P.PN ---
(S) Reports some nausea this AM, no abd pain, completing CCPD when seen, not disconnected, total UF ~ 600 ml Vitals reviewed in the EMR General: Oriented x3, Cooperative HEENT: Atraumatic, sclera anicteric, not needing O2 Neck: Supple Respiratory: Normal air movement, no rales or wheezes Cardiovascular: Regular rate/rhythm mostly Gastrointestinal: Soft and benign, obese, PD catheter present, some crusting, no drainage at exit site Musculoskeletal: b/l amputations Integumentary: Some SC edema, induration and mild erythema over Rt lateral thigh, some TTP persists, dressing over site of I/D Neurological: Normal speech, alert, non focal Laboratory data: Reviewed in the EMR Imagings Data: Conclusions/Impression: ESRD on PD -Back on CCPD. Temp HD catheter did not function properly and was removed. Cont home PD regimen on discharge, will coordinate with PD RN Hyperphosphatemia -Increased phos binders dose, level improved and now < 5.5 Systolic Diastolic CHF, chronic. Severe ischemic CMP Moderate Pulmonary HTN -Compensated mostly, UF on HD as tolerated -Entresto again on hold due to lower BP at times Peripheral/localized edema, multifactorial Improved, able to fit into prosthetics Right posterior lateral thigh pain -Questionable abscess +/- cellulitis vs other (early calciphylaxis) -Elevated CRP -Switched to PO Abx by ID, mid line removed -s/p sodium thiosulfate dose(s), additional doses not given this week as pharmacy did not have in stock and were moving towards discharge planning. Will assess if needed as OP
[2024-05-04 13:22] VITALS: BP 129/61; TEMP 97.9
[2024-05-04] MEDS ORDERED: SILVER SULFADIAZINE 1% 50 GM TOP SCH (21:00)
== END 2024-05-04 16:13 | disposition home health service (06) | DRG 579 ==
LOC: ER 02:03 → ERHOLD 07:38 → 2ND 14:32 → OBSVTOIN 04-12 09:54
PROVIDERS: ADMIT Hospitalist; ATTEND Internal Medicine
PROC: 0J9L0ZZ Drainage of Right Upper Leg Subcutaneous Tissue and Fascia, Open Approach (ICD-10-PCS; 2024-04-11)
PROC: 3E1M39Z Irrigation of Peritoneal Cavity using Dialysate, Percutaneous Approach (ICD-10-PCS; 2024-04-12)
PROC: 02HV33Z Insertion of Infusion Device into Superior Vena Cava, Percutaneous Approach (ICD-10-PCS; 2024-04-20)
PROC: 0JH63XZ Insertion of Tunneled Vascular Access Device into Chest Subcutaneous Tissue and Fascia, Percutaneous Approach (ICD-10-PCS; principal; 2024-04-20 12:45)
PROC: 30233N1 Transfusion of Nonautologous Red Blood Cells into Peripheral Vein, Percutaneous Approach (ICD-10-PCS; 2024-04-22)
PROC: 0JPT0XZ Removal of Tunneled Vascular Access Device from Trunk Subcutaneous Tissue and Fascia, Open Approach (ICD-10-PCS; 2024-05-02)
DX: L03.115 Cellulitis of right lower limb (principal); N18.6 End stage renal disease; I50.42 Chronic combined systolic (congestive) and diastolic (congestive) heart failure; I13.2 Hypertensive heart and chronic kidney disease with heart failure and with stage 5 chronic kidney disease, or end stage renal disease; E87.1 Hypo-osmolality and hyponatremia; L97.119 Non-pressure chronic ulcer of right thigh with unspecified severity; T85.611A Breakdown (mechanical) of intraperitoneal dialysis catheter, initial encounter; L03.116 Cellulitis of left lower limb; E11.22 Type 2 diabetes mellitus with diabetic chronic kidney disease; D63.1 Anemia in chronic kidney disease; E03.9 Hypothyroidism, unspecified; E28.2 Polycystic ovarian syndrome; E78.00 Pure hypercholesterolemia, unspecified; I25.10 Atherosclerotic heart disease of native coronary artery without angina pectoris; I95.1 Orthostatic hypotension; E88.09 Other disorders of plasma-protein metabolism, not elsewhere classified; I48.91 Unspecified atrial fibrillation; M72.9 Fibroblastic disorder, unspecified; F32.A Depression, unspecified; E83.51 Hypocalcemia; E83.39 Other disorders of phosphorus metabolism; I27.20 Pulmonary hypertension, unspecified; R94.31 Abnormal electrocardiogram [ECG] [EKG]; Z95.1 Presence of aortocoronary bypass graft; Z99.2 Dependence on renal dialysis; Z88.5 Allergy status to narcotic agent; Z88.8 Allergy status to other drugs, medicaments and biological substances; Z95.5 Presence of coronary angioplasty implant and graft; Z79.01 Long term (current) use of anticoagulants; Z90.49 Acquired absence of other specified parts of digestive tract; Z79.890 Hormone replacement therapy; Z79.899 Other long term (current) drug therapy; Z89.512 Acquired absence of left leg below knee; Z89.511 Acquired absence of right leg below knee; Z91.158 Patient's noncompliance with renal dialysis for other reason; Y84.8 Other medical procedures as the cause of abnormal reaction of the patient, or of later complication, without mention of misadventure at the time of the procedure
CPT/HCPCS: 36415; 71045; 72192; 73700; 76000; 80048; 80053; 80076; 80202; 82947; 83605; 83735; 83970; 84100; 85014; 85018; 85025; 85027; 85610; 85730; 86705; 86706; 86850; 86900; 86901; 86920; 87040; 87070; 87075; 87205; 87340; 90935; 93005; 94760; 96372; 96374; 96375; 97110; 97116; 97161; 97530; 99285; C1752; G0378; J1170; J1644; J1940; J2001; J2250; J2405; J2543; J2550; J2704; J2710; J2997; J3010; J7040; J7050; P9016; P9047

== ENCOUNTER 2024-05-24 00:58 | Emergency (ER) | payer BC ==
[2024-05-24] MEDS ORDERED: PROMETHAZINE INJ 25 MG/ML AMP ONE (01:17)
[2024-05-24] MEDS ORDERED: HYDROCODONE/APAP 5/325 MG TAB ONE (01:17)
--- NOTE | 2024-05-24 05:10 | EDPHYS ---
Physician Documentation [facility] Name: Keiry Umaña Age: 48 yrs Sex: Female : 1975 Arrival Date: 05/24/2024 Time: 00:58 Bed 2 Private MD: ED Physician Ruy Montes HPI: 05/24 01:07 This 48 yrs old Female presents to ER via Unassigned with complaints of Fall sp4 Injury. 23:56 48-year-old female with bilateral lower extremity amputee with poor mobility presents sp4 with acute fall falling onto the face. Patient States she got up to crawl to the bathroom and then fell directly on her face. Complains of facial tenderness. 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 - Infectious Disease History:: Denies. - Family history:: not pertinent. - Social history:: Smoking status: unknown. ROS: 23:56 Constitutional: Negative for fever, chills, and weight loss, positive for acute fall sp4 and facial pain 23:56 All other systems are negative, Exam: 23:56 Constitutional: This is a well developed, well nourished patient who is awake, alert, sp4 patient is chronically ill-appearing female with bilateral below-knee amputations. Patient reports facial pain. No obvious deformities. Complains of chronic pain. Patient has peritoneal dialysis catheter right lower abdominal quadrant 23:56 Head/Face: Normocephalic, atraumatic. No obvious facial deformity Eyes: Pupils equal round and reactive to light, extra-ocular motions intact. Lids and lashes normal. Conjunctiva and sclera are not injected. Cornea within normal limits. Periorbital areas with no swelling, redness, or edema. ENT: Nares patent. No nasal discharge, no septal abnormalities noted. Tympanic membranes are normal and external auditory canals are clear. Oropharynx with no redness, swelling, or masses, exudates, or evidence of obstruction, uvula midline. Mucous membranes moist. Neck: Trachea midline, no thyromegaly or masses palpated, and no cervical lymphadenopathy. Supple, full range of motion without nuchal rigidity, or vertebral point tenderness. Chest/axilla: Normal chest wall appearance and motion. Nontender with no deformity. No lesions are appreciated. Cardiovascular: Regular rate and rhythm with a normal S1 and S2. No gallops, murmurs, or rubs. Normal PMI, no JVD. No pulse deficits. Respiratory: Lungs have equal breath sounds bilaterally, clear to auscultation and percussion. No rales, rhonchi or wheezes noted. No increased work of breathing, no retractions or nasal flaring. Abdomen/GI: Soft, with normal bowel sounds. No distension or tympany. No guarding or rebound. No evidence of tenderness throughout. Back: No spinal tenderness. No costovertebral tenderness. Skin: Warm, dry with normal turgor. Normal color with no rashes, no lesions, and no evidence of cellulitis. MS/ Extremity: Pulses equal, no cyanosis. Neurovascular intact. Full, normal range of motion. Neuro: Awake and alert, GCS 15, oriented to person, place, time, and situation. Cranial nerves II-XII grossly intact. Motor strength 5/5 in all extremities. Sensory grossly intact. Vital Signs: 01:00 BP 112 / 81; Pulse 81; Resp 18; Temp 98.4; Pulse Ox 100% on R/A; Weight 106.14 kg; rg5 Height 5 ft. 0 in. ; Pain 9/10; 02:00 BP 108 / 63; Pulse 79; Resp 18; Pulse Ox 100% on R/A; rg5 03:00 BP 103 / 61; Pulse 79; Resp 17; Pulse Ox 100% on R/A; rg5 04:18 BP 105 / 62; Pulse 73; Resp 17; Temp 98; Pulse Ox 100% on R/A; rg5 01:00 Body Mass Index 45.70 (106.14 kg, 152.4 cm) 5 01:00 Pain Scale: Adult rg5 [place] Coma Score: 01:00 Eye Response: spontaneous(4). Motor Response: obeys commands(6). Verbal Response: rg5 oriented(5). Total: 15. 23:56 Eye Response: spontaneous(4). Motor Response: obeys commands(6). Verbal Response: sp4 oriented(5). Total: 15. Trauma Score (Adult): 01:00 Eye Response: spontaneous(1); Verbal Response: oriented(1); Motor Response: obeys rg5 commands(2); Systolic BP: > 89 mm Hg(4); Respiratory Rate: 10 to 29 per min(4); [place] Score: 15; Trauma Score: 12 MDM: 01:13 Patient medically screened. sp4 05:01 ED course: IMPRESSION: 1. No acute intracranial or osseous maxillofacial abnormality. sp4 2. Suspected small right of midline supraorbital scalp contusion. 3. 2 suspected large sialoliths demonstrated in the right submandibular and left sublingual salivary glands, measuring up to 0.64 cm on the right and 0.54 cm on the left. No appreciable ductal obstruction appreciated. 4. Age advanced vascular calcifications are also demonstrated, including moderate calcification of the bilateral carotid bulbs. As visualized, this appears progressed from reference exam. Possible etiologies include renal failure, hyperparathyroidism, sequela of tobacco use, secondary hyperlipidemia, or other less common significant inflammatory or metabolic abnormalities. Clinical correlation recommended. Electronically signed by: Tiburcio Nichols MD 05/24/2024 02:41 . 05:04 ED course: CT - PROCEDURE: CT Head and Maxillofacial Without Intravenous Contrast sp4 CLINICAL INDICATION: The patient is 48 years old and is Female; Facial injury. TECHNIQUE: Axial computed tomography images of the head/brain and face without intravenous contrast. Sagittal and coronal reformatted images were created and reviewed. This CT exam was performed using one or more of the following dose reduction techniques: automated exposure control, adjustment of the mA and/or kV according to patient size, and/or use of iterative reconstruction technique. COMPARISON: CT Head 02/26/2022. FINDINGS: BRAIN: No extra-axial fluid collection. No intracranial hemorrhage. No transtentorial herniation. No focal huitron-white matter differentiation abnormality. MIDLINE SHIFT: No midline shift. VENTRICLES: Unremarkable No ventriculomegaly. BONES/JOINTS: No fracture of the calvarium or visualized facial bones. 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 Suspected small right of midline supraorbital scalp contusion. VASCULATURE: Age advanced vascular calcifications are also demonstrated, including moderate calcification of the bilateral carotid bulbs. SINUSES: Unremarkable as visualized. No acute sinusitis. SUBMANDIBULAR/PAROTID GLANDS: 2 prominent calcifications favoring sialoliths demonstrated in the right submandibular and left sublingual salivary glands, measuring up to 0.64 cm on the right and 0.54 cm on the left. No appreciable sialoductal ectasia appreciated. MASTOID AIR CELLS: Unremarkable as visualized. No mastoid effusion. ORBITS: Bilateral globes and orbits are intact with no abnormal intraorbital mass, collection, or foreign body. IMPRESSION: 1. No acute intracranial or osseous maxillofacial abnormality. 2. Suspected small right of midline supraorbital scalp contusion. 3. 2 suspected large sialoliths demonstrated in the right submandibular and left sublingual salivary glands, measuring up to 0.64 cm on the right and 0.54 cm on the left. No appreciable ductal obstruction appreciated. 4. Age advanced vascular calcifications are also demonstrated, including moderate calcification of the bilateral carotid bulbs. As visualized, this appears progressed from reference exam. Possible etiologies include renal failure, hyperparathyroidism, sequela of tobacco use, secondary hyperlipidemia, or other less common significant inflammatory or metabolic abnormalities. Clinical correlation recommended. 23:56 Differential diagnosis: abrasion, closed head injury, contusion, multiple trauma, sp4 sprain, strain. Data reviewed: vital signs, nurses notes, EMS record, old medical records, radiologic studies, CT scan. Consideration of Admission/Observation Escalation of care including admission/observation considered. ED course: Traumatic workup today unremarkable. Patient stable for discharge home with EMS transport.. 05/24 01:13 Order name: CT Head Brain wo Cont sp4 05/24 01:13 Order name: CT Facial Bones W/O Con sp4 Administered Medications: 01:17 Drug: HYDROcodone-acetaminophen PO 5 mg-325 mg 2 tabs PO once Route: PO; rg5 04:21 Follow up: Response: No adverse reaction rg5 01:17 Drug: Promethazine IVP 25 mg IVP once Route: IVP; Site: PICC; rg5 04:20 Follow up: Response: No adverse reaction rg5 05:31 Drug: Promethazine PO 25 mg PO once Route: PO; jb4 Disposition Summary: 05/24/24 05:10 Discharge Ordered Notes: Location: Home sp4 Problem: new sp4 Symptoms: have improved sp4 Condition: Stable sp4 Diagnosis - Acute fall at home, acute facial contusion sp4 Followup: sp4 - With: Private Physician - When: 7 - 10 days - Reason: Recheck today's complaints Discharge Instructions: - Discharge Summary Sheet sp4 - Facial or Scalp Contusion, [id number] sp4 Forms: - Patient Portal Instructions sp4 Prescriptions: - acetaminophen-codeine 300-60 mg Oral tablet - take 1 tablet ORAL route daily PRN pain; 20 tablet; Refills: 0, Product sp4 Selection Permitted - promethazine 25 mg Oral Tablet - take 1 tablet ORAL route every 6 hours As needed; 20 tablet; Refills: 0, sp4 Product Selection Permitted Signatures: Dispatcher [employer] Wero Chairez, RN RN jb4 Ruy Montes MD MD sp4 Galindo Whiting RN RN rg5
--- NOTE | 2024-05-24 05:10 | ER ---
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 Complaint of pain in the forehead and nausea. 01:00 Care prior to arrival: Cervical collar in place. Medication(s) given: fentanyl 100mcg rg5 intranasal. Mechanism of Injury: Fall out of bed. Trauma event details: Injury occurred: May 23, 2024 Injury occurred at: 23:45. Activity prior to arrival: loss of consciousness. 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 - Infectious Disease History:: Denies. - Family history:: not pertinent. - Social history:: Smoking status: unknown. Screenin:00 Abuse screen: Denies threats or abuse. Tuberculosis screening: No symptoms or risk rg5 factors identified. 01:00 [facility] ED Fall Risk Assessment (Adult) History of falling in the last 3 months, rg5 including since admission Yes- single mechanical fall (1 pt) Confusion or Disorientation No (0 pts) Intoxicated or Sedated No (0 pts) Impaired Gait Yes (1 pt) Mobility Assist Device Used Yes (1 pt) Altered Elimination No (0 pt) Score/Fall Risk Level 3 or more points = High Risk Oriented to surroundings, Maintained a safe environment, Educated pt \T\ family on fall prevention, incl call for assistance when getting out of bed, Hourly rounding (assess needs \T\ fall precautionary measures) done. Nutritional screening: No deficits noted. Primary Survey: 01:00 NO uncontrolled hemorrhage observed. Breathing/Chest: Respiratory effort: spontaneous. rg5 Circulation: Pulses: palpable right brachial artery and left brachial artery. Skin color: pink, Skin temperature: warm, Cardiac rhythm: sinus rhythm. Disability Client is alert. Exposure/Environment: All clothing and personal items were removed. Forensic evidence collection is not deemed to be indicated at this time. Items placed in patient belonging bag. There is no evidence of uncontrolled external bleeding. No obvious injuries are noted at this time. Assessment: 01:00 General: Appears comfortable, Behavior is calm, cooperative, appropriate for age. Pain: rg5 Complains of pain in forehead Pain currently is 8 out of 10 on a pain scale. Quality of pain is described as aching, Pain began 1 hour ago. Is continuous. Neuro: Level of Consciousness is awake, alert, obeys commands, Oriented to person. EENT: No deficits noted. Cardiovascular: Denies chest pain, Heart tones S1 S2 Rhythm is regular. Respiratory: Airway is patent Trachea midline Respiratory effort is even, unlabored, Respiratory pattern is regular, symmetrical. GI: Abdomen is round non-distended, obese, Abd is soft and non tender. : No signs and/or symptoms were reported regarding the genitourinary system. Derm: Skin is intact, Skin is dry, Skin is normal, Skin temperature is warm. Musculoskeletal: Amputation of right leg and left leg. Range of motion: intact in right arm \T\ left arm. Injury Description: Bruise sustained to mouth. 02:00 Reassessment: Patient and/or family updated on plan of care and expected duration. Pain rg5 level reassessed. Patient is alert, oriented x 3, equal unlabored respirations, skin warm/dry/pink. 03:00 Reassessment: Patient and/or family updated on plan of care and expected duration. Pain rg5 level reassessed. Patient is alert, oriented x 3, equal unlabored respirations, skin warm/dry/pink. 04:14 Reassessment: Patient and/or family updated on plan of care and expected duration. Pain rg5 level reassessed. Patient is alert, oriented x 3, equal unlabored respirations, skin warm/dry/pink. 05:34 Reassessment: d/c pending EMS ride home. jb4 Vital Signs: 01:00 BP 112 / 81; Pulse 81; Resp 18; Temp 98.4; Pulse Ox 100% on R/A; Weight 106.14 kg; rg5 Height 5 ft. 0 in. ; Pain 9/10; 02:00 BP 108 / 63; Pulse 79; Resp 18; Pulse Ox 100% on R/A; rg5 03:00 BP 103 / 61; Pulse 79; Resp 17; Pulse Ox 100% on R/A; rg5 04:18 BP 105 / 62; Pulse 73; Resp 17; Temp 98; Pulse Ox 100% on R/A; rg5 01:00 Body Mass Index 45.70 (106.14 kg, 152.4 cm) rg5 01:00 Pain Scale: Adult rg5 [place] Coma Score: 01:00 Eye Response: spontaneous(4). Motor Response: obeys commands(6). Verbal Response: rg5 oriented(5). Total: 15. 23:56 Eye Response: spontaneous(4). Motor Response: obeys commands(6). Verbal Response: sp4 oriented(5). Total: 15. Trauma Score (Adult): 01:00 Eye Response: spontaneous(1); Verbal Response: oriented(1); Motor Response: obeys rg5 commands(2); Systolic BP: > 89 mm Hg(4); Respiratory Rate: 10 to 29 per min(4); [place] Score: 15; Trauma Score: 12 ED Course: 00:59 Patient arrived in ED. jj6 01:00 Patient has correct armband on for positive identification. Bed in low position. Call rg5 light in reach. Side rails up X2. 01:00 Patient maintains SpO2 saturation greater than 95% on room air. Thermoregulation: warm rg5 blanket given to patient. 01:00 No provider procedures requiring assistance completed. rg5 01:07 Ruy Montes MD is Attending Physician. sp4 01:14 Galindo Whiting, CHERI is Primary Nurse. rg5 01:30 CT Head Brain wo Cont In Process Unspecified. EDMS 01:30 CT Facial Bones W/O Con In Process Unspecified. EDMS 01:34 Triage completed. rg5 Administered Medications: 01:17 Drug: HYDROcodone-acetaminophen PO 5 mg-325 mg 2 tabs PO once Route: PO; rg5 04:21 Follow up: Response: No adverse reaction rg5 01:17 Drug: Promethazine IVP 25 mg IVP once Route: IVP; Site: PICC; rg5 04:20 Follow up: Response: No adverse reaction rg5 05:31 Drug: Promethazine PO 25 mg PO once Route: PO; jb4 Medication: 01:00 VIS not applicable for this client. rg5 Outcome: 05:10 Discharge ordered by . sp4 06:33 Patient left the ED. jb4 Signatures: Dispatcher [employer] EDWero Santamaria, RN RN jb4 Cynthia [email or web address] Ruy Montes MD MD sp4 Galindo Whiting RN RN rg5
[2024-05-24] MEDS ORDERED: PROMETHAZINE 25 MG TABLET ONE (05:28)
[2024-05-24 06:50] VITALS: O2SAT 100
[2024-05-24 06:55] VITALS: BP 105/62; TEMP 98
--- NOTE | 2024-05-24 14:13 | RAD REPORT ---
EXAM DESCRIPTION: CT - Head Brain Wo Cont - 05/24/2024 1:29 am CLINICAL HISTORY: The patient is 48 years old and is Female; Facial injury. TECHNIQUE: Axial computed tomography images of the head/brain and face without intravenous contrast. Sagittal and coronal reformatted images were created and reviewed. This CT exam was performed us ing one or more of the following dose reduction techniques: automated exposure control, adjustment of the mA and/or kV according to patient size, and/or use of iterative reconstruction technique. COMPARISON: CT Head 02/26/2022. FINDINGS: BRAIN: No extra-axial fluid collection. No intracranial hemorrhage. No transtentorial herniation. No focal huitron-white matter differentiation abnormality. MIDLINE SHIFT: No midline shift. VENTRICLES: Unremarkable No ventriculomegaly. BONES/JOINTS: No fracture of the calvarium or visualized facial bones. 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 Suspected small right of midline supraorbital scalp contusion. VASCULATURE: Age advanced vascular calcifications are also demonstrated, including moderate calcifi cation of the bilateral carotid bulbs. SINUSES: Unremarkable as visualized. No acute sinusitis. SUBMANDIBULAR/PAROTID GLANDS: 2 prominent calcifications favoring sialoliths demonstrated in the ri ght submandibular and left sublingual salivary glands, measuring up to 0.64 cm on the right and 0.54 cm on the left. No appreciable sialoductal ectasia appreciated. MASTOID AIR CELLS: Unremarkable as visualized. No mastoid effusion. ORBITS: Bilateral globes and orbits are intact with no abnormal intraorbital mass, collection, or f oreign body. IMPRESSION: 1. No acute intracranial or osseous maxillofacial abnormality. 2. Suspected small right of midline supraorbital scalp contusion. 3. 2 suspected large sialoliths demonstrated in the right submandibular and left sublingual salivar y glands, measuring up to 0.64 cm on the right and 0.54 cm on the left. No appreciable ductal obstruc tion appreciated. 4. Age advanced vascular calcifications are also demonstrated, including moderate calcification of the bilateral carotid bulbs. As visualized, this appears progressed from reference exam. Possible [place] ologies include renal failure, hyperparathyroidism, sequela of tobacco use, secondary hyperlipidemia, or other less common significant inflammatory or metabolic abnormalities. Clinical correlation recom mended. Electronically signed by: Tiburcio Nichols MD 05/24/2024 02:41 AM CDT RP Due to temporary technical issues with the PACS/Fluency reporting system, reports are being signed by the in house radiologist without review as a courtesy to ensure prompt reporting. The interpreting r adiologist is fully responsible for the content of the report.
--- NOTE | 2024-05-24 14:27 | RAD REPORT ---
EXAM DESCRIPTION: CT - Facial Bones W/ Mpr - 05/24/2024 1:[address] Head and Maxillofacial Without Intravenous Contrast CLINICAL HISTORY: The patient is 48 years old and is Female; Facial injury. TECHNIQUE: Axial computed tomography images of the head/brain and face without intravenous contrast. Sagittal and coronal reformatted images were created and reviewed. This CT exam was performed us ing one or more of the following dose reduction techniques: automated exposure control, adjustment of the mA and/or kV according to patient size, and/or use of iterative reconstruction technique. COMPARISON: CT Head 02/26/2022. FINDINGS: BRAIN: No extra-axial fluid collection. No intracranial hemorrhage. No transtentorial herniation. No focal huitron-white matter differentiation abnormality. MIDLINE SHIFT: No midline shift. VENTRICLES: Unremarkable No ventriculomegaly. BONES/JOINTS: No fracture of the calvarium or visualized facial bones. 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 Suspected small right of midline supraorbital scalp contusion. VASCULATURE: Age advanced vascular calcifications are also demonstrated, including moderate calcifi cation of the bilateral carotid bulbs. SINUSES: Unremarkable as visualized. No acute sinusitis. SUBMANDIBULAR/PAROTID GLANDS: 2 prominent calcifications favoring sialoliths demonstrated in the ri ght submandibular and left sublingual salivary glands, measuring up to 0.64 cm on the right and 0.54 cm on the left. No appreciable sialoductal ectasia appreciated. MASTOID AIR CELLS: Unremarkable as visualized. No mastoid effusion. ORBITS: Bilateral globes and orbits are intact with no abnormal intraorbital mass, collection, or f oreign body. IMPRESSION: 1. No acute intracranial or osseous maxillofacial abnormality. 2. Suspected small right of midline supraorbital scalp contusion. 3. 2 suspected large sialoliths demonstrated in the right submandibular and left sublingual salivar y glands, measuring up to 0.64 cm on the right and 0.54 cm on the left. No appreciable ductal obstruc tion appreciated. 4. Age advanced vascular calcifications are also demonstrated, including moderate calcification of the bilateral carotid bulbs. As visualized, this appears progressed from reference exam. Possible [place] ologies include renal failure, hyperparathyroidism, sequela of tobacco use, secondary hyperlipidemia, or other less common significant inflammatory or metabolic abnormalities. Clinical correlation recom mended. Electronically signed by: Tiburcio Nichols MD 05/24/2024 02:41 AM CDT RP Due to temporary technical issues with the PACS/Fluency reporting system, reports are being signed by the in house radiologist without review as a courtesy to ensure prompt reporting. The interpreting r adiologist is fully responsible for the content of the report.
--- OUTSIDE RECORDS SUMMARY | 2024-05-25 09:16 | XMS REPORT | Clinical Summary ---
Author Name Unknown Organization [facility] Address [address] [place] [address] Care Team Providers Care Barber Instructor Name Role Phone Brooke Steward MD Primary Care Provider [phone] Allergies Active Allergy Reactions Criticality Noted Date [...] Overview: Added automatically from request for surgery [id number] Family history of malignant neoplasm of pancreas 07/05/2019 Overview: Added automatically from request for surgery [id number] Diarrhea 07/05/2019 Overview: Added automatically from request for surgery [id number] Family history of cancer of colon 07/05/2019 Overview: Added automatically from request for surgery [id number] Surgical History Surgery Date Site/Laterality Comments APPENDECTOMY 04/09/2019 - 05/09/2019 COLONOSCOPY 10/10/2014 - 10/09/2015 CHOLECYSTECTOMY 10/10/2003 - 10/09/2004 [place] EDG US EXAM SURGICAL ALTER STOM DUODENUM/JEJUNUM [...] Due Date Last Done Comments COVID-19 Vaccine (2022-2 4 season) 2023 Influenza Vaccine 06/10/2024 Pneumococcal Vaccine: Pediat rics (0 to 5 Years) and At-Risk Patients (6 to 64 Years) Aged Out No longer eligi ble based on patient's age to complete this topic Care Teams Barber Instructor Relationship Specialty Start Date End Date Brooke Steward MD [address] [place] [id number] [email or web address] PCP - General Gastroenterology, Hepatology and Nutrition 06/29/19
== END 2024-05-24 06:33 | disposition home or self-care (01) ==
LOC: ER 00:58
DX: S00.83XA Contusion of other part of head, initial encounter (principal); W06.XXXA Fall from bed, initial encounter; E11.22 Type 2 diabetes mellitus with diabetic chronic kidney disease; I13.2 Hypertensive heart and chronic kidney disease with heart failure and with stage 5 chronic kidney disease, or end stage renal disease; I50.9 Heart failure, unspecified; N18.6 End stage renal disease; E28.2 Polycystic ovarian syndrome; E03.9 Hypothyroidism, unspecified; E78.00 Pure hypercholesterolemia, unspecified; Z89.512 Acquired absence of left leg below knee; Z89.511 Acquired absence of right leg below knee; Z95.5 Presence of coronary angioplasty implant and graft; Z90.49 Acquired absence of other specified parts of digestive tract; Z88.5 Allergy status to narcotic agent
CPT/HCPCS: 70450; 70486; 76377; 96374; 99284; J2550; Q0169